=== PATIENT | female | born 1980 | race Caucasian/White ===

== ENCOUNTER 2022-02-25 12:48 | Emergency (ER) | payer MEDICARE, OTHER, SELFPAY ==
--- NOTE | 2022-02-25 16:56 | NUR.NOTE ---
Nursing Note: Patient stated to Access that she did not want to wait any longer @ [id number]
== END 2022-02-25 13:46 | disposition left before discharge ==
DX: Z53.21 Procedure and treatment not carried out due to patient leaving prior to being seen by health care provider (principal)

== ENCOUNTER 2022-08-03 19:32 | Inpatient (IN) | payer MEDICARE, SELFPAY ==
[2022-08-03 19:33] VITALS: BP 132/79; PULSE 98; RESP 16; TEMP 37.3; O2SAT 98
--- NOTE | 2022-08-03 20:00 | DI.CT_ITS ---
Exam(s) CT ABDOMEN PELVIS W EXAM: CT ABDOMEN PELVIS W CLINICAL HISTORY: epigastric and band pain, hx pancreatitis TECHNIQUE: Imaging Protocol: Axial computed tomography images with coronal and sagittal reformatted images were created and reviewed CONTRAST MATERIAL: Intravenous: Omnipaque 350 Contrast volume:100 mL Oral: No COMPARISON: No exams were available for comparison FINDINGS: ABDOMEN: Lung Bases: Normal where visualized. Liver: Normal density. No measurable mass. Portal, Superior Mesenteric, and Splenic Veins: There is marked attenuation of the size of the spleni c vein. Gallbladder and Biliary Tract: The gallbladder is not identified. The patient may be status post cho lecystectomy. There is mild intra and extrahepatic biliary ductal dilatation. Pancreas: There is a 4.9 x 4.4 cm in capsulated fluid collection associated with the body of the panc reas. There is peripancreatic fluid noted. The pancreatic tail appears mildly atrophic. Spleen: Normal. Adrenals: No masses seen. Kidneys: Normal size, contour and axis. No radiodense stones or obstructive uropathy. No masses seen. Abdominal Aorta: Abdominal portion non-dilated. Vasculature: Upper abdominal varices are present. Bowel: No evidence of obstruction. There is mild wall thickening involving portions of the stomach a nd proximal small bowel likely reticulated to the adjacent pancreatic inflammatory process. Appendix is unremarkable. Peritoneal Cavity: There is a small amount of pelvic free fluid. There is also small amount of fluid seen in the left pericolic gutter. No free air. Lymph Nodes: Within normal limits. Bones: Within normal limits for the patient's age. There is a unilateral right spondylolysis at L5. No spondylolisthesis. Soft Tissues: Unremarkable. PELVIS: Bladder: Symmetric distention, no gross wall thickening. Reproductive Organs: There is an IUD which appears in good position. Prominent parametrial vessels a re seen which can be present with pelvic congestion syndrome. Bilateral ovarian cysts. The largest is on the right and measures 3.4 cm. Lymph Nodes: Within normal limits. Bones: Within normal limits for the patient's age. IMPRESSION: 1. Findings suggestive of acute pancreatitis with presumed pseudocyst. 2. Bilateral ovarian cysts. 3. Findings suggestive of pelvic congestion syndrome. 4. Bowel wall thickening seen in the distal stomach and proximal small bowel. Presumed gastritis/ent eritis which may be secondary to the adjacent acute pancreatitis. 5. Attenuation of the size of the splenic vein with upper abdominal collateral vessels suspicious for chronic splenic vein thrombosis. RADIATION DOSE DELIVERED: 651.89mGy.cm Total DLP DATA REPOSITORY: All CT scans at this facility are submitted to the National Radiology Data Registry (NRDR) Dose Index Registry (DIR) with the [employer] (ACR). RADIATION OPTIMIZATION: All CT scans at this facility use at least one of these dose optimization te chniques: automated exposure control; mA and/or kV adjustment per patient size (includes targeted exa ms where dose is matched to clinical indication); or iterative reconstruction.
--- NOTE | 2022-08-03 20:02 | ED.GENADUL_ITS ---
Discharge Plan Disposition Patient Disposition: Admit to [facility] Condition: Poor Condition: Improving Discharge Details Chief Complaint: Abd Prob Clinical Impression: Pancreatitis Admit Date/Time: 08/03/22 23:32 Admit Provider: Phil Renner Attending Provider: Phil Renner Primary Care Provider: Genoveva,Local ED Provider: Ghada Urena Discharge Instructions Activity:: Activity as Tolerated Equipment/Supplies:: No Equipment Needed Diet:: As Tolerated Discharge Orders Discharge Orders: Discharge Order (Routine); Ordered 08/05/22 Ordered By: Tanya Shaw Discharge Data Discharge Date/Time-TO BE ENTERED AT DEPARTURE: 08/04/22 03:49 Medical Decision Making Patient is a pleasant 42 year old female, brought in via EMS, with c/c of abdominal pain. Hx of pancreatitis in the past, last flare was 1yr ago. States that this feels the same as it has in the past. States that at 2 AM she woke to have some water and developed a sudden onset of epigastric and left upper quadrant pain. States that unlike historically, the pain does radiate more and is circumferential around the upper abdomen and can radiate up towards the posterior left shoulder. Denies any anterior chest pain. No shortness of breath. States the pain has been severe and she is now unable to manage at home. Typically begins to have the symptoms and will self treat with increased fluids and has not been successful at this time. She denies any fevers or chills. Denies any significant alcohol intake or binge drinking recently. However, she does report that she drinks some alcohol after the onset of her symptoms as this can help with her pain. Patient is status postcholecystectomy after her initial bout of gallstone pancreatitis. Patient is new to the area, does have a local primary care but is not established with GI in the area as of yet. On exam, patient appears nontoxic. She does appear anxious and uncomfortable. Her lungs are clear, normal cardiac exam. Abdominal exam is significant for epigastric discomfort and left upper quadrant pain. No peritoneal findings. She does have well-healed surgical incisions. Primarily concern at this time for recurrent pancreatitis. Will the patient denies any chronic alcohol use, she does report intoxication at this time. Will obtain CT imaging, labs and give fluids and analgesics. CT concerning for findings suspicious of pancreatitis. Cyst is noted which patient reports has been noted historically. She has had 1 of these removed in the past. No evidence of abscess. Lipase is slightly elevated at 95. Leukocytosis is appreciated. Discussed admission for continued hydration, pain management. Patient is in agreement with this plan. While her lipase not significantly elevated, I am concerned that this may be trending upward, particular given patient's history. Patient is in agreement with this plan. Consulted with hospitalist who agrees to admission. HPI General Date/Time Provider Initiated Documentation: 08/03/22 19:53 . Limitations to Documentation: no limitations . Information obtained by: patient and RN notes reviewed . History of Present Illness 42 year old F presents to the emergency department with the chief complaint of epigastric and LUQ pain, described as severe and similar to prior episodes (hx pancreatitis), with intensity rated at 10. Quality is described as stabbing, and is localized to the abdomen. Patient reports radiation to back (toward left shoulder). Patient started experiencing this hour(s) (began today at 2AM) and it has been constant. No relieving factors improve symptom(s), Eating worsens symptoms . Patient notes no other symptoms.. Patient did receive the following treatments prior to arrival, none Related Data Home Medications Medication Instructions Recorded Confirmed buprenorphine 8 mg-naloxone 2 mg 1 film sublingual DAILY 08/04/22 08/04/22 sublingual film (Suboxone) dextroamphetamine-amphetamine 20 1 tab PO BID 08/04/22 08/04/22 mg tablet trazodone 100 mg tablet tab PO PRN PRN 08/04/22 General Stated Complaint: Abd Prob ADRIANA: 3 Review of Systems Constitutional Constitutional: Reports as per HPI, Denies chills, Denies fever(s) and Denies headache(s) ENT Ears, Nose, Mouth, and Throat: Denies headache(s) Cardiovascular Cardiovascular: Reports as per HPI, Denies chest pain and Denies dyspnea Respiratory Respiratory: Reports as per HPI, Denies cough and Denies dyspnea Gastrointestinal Gastrointestinal: Reports as per HPI Musculoskeletal Musculoskeletal: Reports as per HPI Integumentary/Breasts Skin/Breast: Reports as per HPI and Denies rash Neurologic Neurologic: Reports as per HPI and Denies headache(s) PFSH All Active Problems (Updated 08/24/22 @ 21:46 by ELVIRA Estrada) Pancreatitis (Acute) Social History Smoking/Tobacco Use Status: Current every day Smoking risk assessment performed?: Yes Alcohol Intake: current Alcohol Intake frequency: a few times a month Drug use: Current Sobriety Substance use type: marijuana Do you feel safe at home: Yes Do you feel safe in your relationship?: Yes Exam Const General: cooperative, healthy appearing, uncomfortable, no acute distress, well developed and anxious Nutritional Appearance: average body habitus and well nourished Orientation: alert and awake [facility] Head: normal to inspection Mouth: moist mucous membranes Resp Effort & Inspection: normal respiratory effort, able to speak in complete sentences and no respiratory distress Auscultation: clear to auscultation bilaterally, no rales, no rhonchi and no wheezes Cardio Rate: regular rate Rhythm: regular rhythm Heart Sounds: S1 normal and S2 normal GI Inspection: normal to inspection, scar (well healed), no visible herniation, no visible pulsation and No visible peristalsis Palpation: soft, no hepatosplenomegaly, no hepatosplenomegaly, no hernias, no masses, not rigid and tender in the epigastrum and in the LUQ Percussion: normal to percussion Auscultation: normal bowel sounds Back/Spine/Pelvis Back: no CVA tenderness Skin General skin exam: no rashes or lesions noted Trauma: no lacerations or abrasions Neuro General: patient alert and patient awake Cognition: normal cognition Speech: speech normal Gait: normal gait Psych Appearance: grossly normal and well kempt Mental Status: mental status grossly normal Speech and Movement: speech and movement normal Course Vital Signs Vital signs: Vital Signs Temperature 37.3 C 08/03/22 19:33 Pulse 98 H 08/03/22 19:33 Respiratory Rate 16 08/03/22 19:33 Blood Pressure 132/79 08/03/22 19:33 Pulse Oximetry 98 08/03/22 19:33 Temperature 37.3 C 08/03/22 19:33 Temperature Source Oral 08/03/22 19:33 Pulse 98 H 08/03/22 19:33 Respiratory Rate 16 08/03/22 19:33 Blood Pressure 132/79 08/03/22 19:33 Blood Pressure Position Sitting 08/03/22 19:33 Pulse Oximetry 98 08/03/22 19:33 Oxygen Delivery Method Room Air 08/03/22 19:33 Oxygen Flow Rate 0 08/03/22 19:33 Pain Level 10 08/03/22 19:33
[2022-08-03] MEDS: HYDROmorphone 2 MG/ML SYR 1 MG IVP ×2 (20:49→22:49)
[2022-08-03] MEDS: Lactated Ringers 1,000 ML 1000 ML IV (20:49)
[2022-08-03 20:59] LABS: Abs Immature Grans 0.07 10^3/uL (0.0-0.06); Absolute Eosinophil Count 0.47 10^3/uL (0.0-0.7); Absolute Lymphocyte Count 1.71 10^3/uL (1.2-3.4); Absolute Monocyte Count 1.44 10^3/uL (0.1-0.8); Absolute Neutrophil Count 13.11 10^3/uL (1.2-6.7); Basophils % 0.6; Eosinophils % 2.8; HCT 45.6 % (36.0-46.0); Immature Grans % 0.4; Lymphocytes % 10.1; MCH 32.5 pg (27.0-33.0); MCHC 35.1 % (32.0-36.0); MCV 93 fL (80-95); MPV 9.6 fL (8.0-11.0); Monocytes % 8.5; Neutrophils % 77.6; Platelet Count 342 10^3/uL (130-400); RBC 4.93 10^6/uL (3.93-5.22); RDW 13.2 % (11.7-14.6); RDW-SD 45.1 fL
[2022-08-03 21:00] VITALS: BP 123/67; PULSE 93; RESP 16; TEMP 36.2; O2SAT 98
[2022-08-03 21:00] LABS: Bilirubin Negative (Negative); Blood Negative (Negative); Clarity Clear (Clear); Glucose Negative (Negative); Ketones Negative (Negative); Leukocyte Esterase Trace (Negative); Nitrite Negative (Negative); Urobilinogen 0.2 EU/dL (Up TO 0.2); pH 6.5 (5-8)
[2022-08-03 21:11] LABS: ETHANOL BLOOD 185.1 mg/dL (<10)
[2022-08-03 21:14] LABS: Bacteria Few HPF (Negative); C & S Indicated? No; Casts Negative LPF (Negative); Crystals Negative HPF (Negative); Epithelial Cells Many HPF (Negative); Mucus Negative (Negative); Other Cells Negative (Negative); RBC 0-2 HPF (0-2)
[2022-08-03 21:14] LABS: ALT 55 U/L (14-59); AST 37 U/L (15-37); Albumin 3.4 g/dL (3.4-5.0); Alkaline Phosphatase 250 U/L (46-116); BUN 5 mg/dL (7-18); Bilirubin, Total 1.2 mg/dL (0.2-1.0); CREATININE 0.5 mg/dL (0.55-1.02); Calcium 8.6 mg/dL (8.5-10.1); Chloride 102 mmol/L (98-107); Estimated GFR 120.77 (mL/min/1.73m2); Glucose 132 mg/dL (74-106); Lipase 95 U/L (16-77); Magnesium 1.4 mg/dL (1.8-2.4); Sodium 140 mmol/L (136-145); Total Protein 7.1 g/dL (6.4-8.2)
[2022-08-03 21:15] LABS: Potassium 2.7 mmol/L (3.5-5.1)
--- NOTE | 2022-08-03 21:33 | NUR.NOTE ---
Addendum entered by Darling Spain RN 08/04/22 04:42: Charted on wrong pt. Original Note: Per reg diet
[2022-08-03] MEDS: Omnipaque 350 MG/ML 100 ML BTL IJ (21:41)
[2022-08-03] MEDS: Normal Saline - Diluent 50 ML VIAL IJ (21:42)
[2022-08-03] MEDS: POTASSIUM CHLORIDE 20 MEQ, POTASSIUM CHLORIDE 10 MEQ 30 MEQ PO (21:57)
[2022-08-03] MEDS: POTASSIUM CHLORIDE 20 MEQ/100 ML BAG 50 MEQ IVPB (21:58)
--- NOTE | 2022-08-03 21:58 | DI.VRAD_ITS ---
PROCEDURE INFORMATION: Exam: CT Abdomen And Pelvis With Contrast Exam date and time: 08/03/2022 9:36 PM Age: 42 years old Clinical indication: Abdominal pain; Localized; Upper; Additional info: Epigastric and band pain, HX pancreatitis TECHNIQUE: Imaging protocol: Computed tomography of the abdomen and pelvis with contrast. Radiation optimization: All CT scans at this facility use at least one of these dose optimization techniques: automated exposure control; mA and/or kV adjustment per patient size (includes targeted exams where dose is matched to clinical indication); or iterative reconstruction. Contrast material: OMNI 350; Contrast volume: 100 ml; Contrast route: INTRAVENOUS (IV); COMPARISON: No relevant prior studies available. FINDINGS: Liver: No mass. Gallbladder and bile ducts: Gallbladder not clearly visualized. Mild intrahepatic biliary ductal dilatation and mild dilatation of the common bile duct Pancreas: Peripancreatic collection measuring 4.8 x 4.5 cm abutting the greater curvature of the stomach. There is mild distal pancreatic ductal prominence. Fluid surrounding the distal pancreas extending to the lesser sac and left paracolic gutter Spleen: Extensive collateral vessels adjacent to the spleen suggesting underlying chronic splenic venous thrombosis No splenomegaly. Adrenal glands: No mass. Kidneys and ureters: No hydronephrosis. Stomach and bowel: No obstruction. Gastric wall thickening along the greater curvature. Appendix: No evidence of appendicitis. Intraperitoneal space: Small to moderate pelvic fluid No free air. No significant fluid collection. Vasculature: Unremarkable. No abdominal aortic aneurysm. Lymph nodes: Unremarkable. No enlarged lymph nodes. Urinary bladder: Unremarkable as visualized. Reproductive: Right ovarian cystic lesion measuring up to 3.4 cm. There is possible clot noted posteriorly suggesting hemorrhagic lesion. Intrauterine device in the uterus. Cystic structure in the left ovary suspected. Extensive parametrial collateral vessels and dilated gonadal veins Bones/joints: Chronic right spondylolysis at L5-S1 without significant spondylolisthesis. No acute fracture. Soft tissues: Unremarkable. IMPRESSION: Presumed pseudocyst in the distal pancreas as described. Mild superimposed pancreatitis suspected. Findings suspect for chronic splenic venous thrombosis Presumed recently ruptured right ovarian hemorrhagic cyst as described Findings in keeping with pelvic congestion syndrome Nonurgent findings as noted Dictated and Authenticated by: Asif Farooq MD. Ordering:VINCENT Urrutia MD
--- NOTE | 2022-08-03 22:00 | RT.EKG_ITS ---
APPROVED REPORT Exam: Resting ECG Reason for Exam: K+ 2.6 Patient Location: E HR:90 bpm ECG Measurements Heart Rate 90 AXIS TX 140 P 88 QRSd 81 QRS 48 QT 397 T 39 QTc 486 Conclusion Sinus rhythm. Biatrial enlargement. Left ventricular hypertrophy.
--- NOTE | 2022-08-03 23:15 | HPE_ITS ---
Date of service: 08/03/22 Time of Service: 23:15 Assessment and Plan Assessment and plan (1) Pancreatitis: Status: Chronic Assessment and plan: Apparently acute pancreatitis, though the CT findings and lipase elevation are modest. As to etiology this is unclear. Certainly alcohol is to be considered, and a level of 185 would be somewhat unexpected from what the patient describes. Alternatively the elevation in alk phos and mild CBD dilatation could suggest recent passage of a CBD stone. In any case will plane NPO with IVF and prn analgesics (will try Fentanyl, as Dilaudid has had limited effect, though might just need higher dose). Out of abundance of caution I will also give banana bag and place on CIWA, though patient states she does not drink regularly and has never had any issues with withdrawal. Will also replenish Mg. History of Present Illness History of Present Illness Chief Complaint: abdominal pain Narrative: 42 female with h/o recurrent pancreatitis, s/p cholycytectomy, repeated episodes since which she states are of unknown etiology. Here with one day of epigastric pain radiating to back and left shoulder, which she states is stereotypical for her episodes. No nausea. Sates she drank some alcohol AFTER the pain started (says this helps with the pain) but denies drinking prior. In ER findings of note for white count 16, lipase 94, Alk phos 250, TBili 1.2, normal TAs, K 2.[address] abdomen shows pancreatic pseudocyst and peripancreatic fluid suggesting mild pancreatitis, mild dilatation CBD, absent gallbladder, no CBD stones and no pancreatic calcifications reported. (Incidental note of pelvic free fluid c/w recently ruptured right ovarian cyst. Upon further questioning patient admits to some RLQ pain earlier today but states it was overshadowed by the epigastric pain). Patient given potassium replacement and Dilaudid 2 mg IV in divided doses with temporary pain relief. Requesting something stronger. Review of Systems Narrative: per HPI PFSH All Active Problems (Updated 08/03/22 @ 23:26 by Phil Renner MD) Pancreatitis (Chronic) Social History Smoking/Tobacco Use Status: Current every day Smoking risk assessment performed?: Yes Alcohol Intake: current Alcohol Intake frequency: a few times a month Substance use type: marijuana Do you feel safe at home: Yes Do you feel safe in your relationship?: Yes Exam Narrative Exam Narrative: 123/67, 93, 36.2, 16, 98%^ RA. HEENT anicteric; neck supple; lungs clear; heart RRR; abdomen +BS, soft, moderate-sever epigastric tenderness w/o rebound; extremities w/o edema; neuro Ox, lucid, moves all 4s Results Labs Result diagrams: 08/03/22 20:45 08/03/22 20:45 Labs: Laboratory Results - last 24 hr 08/03/22 08/03/22 08/03/22 20:30 20:45 20:45 WBC 16.90 H RBC 4.93 Hgb 16.0 H Hct 45.6 MCV 93 MCH 32.5 MCHC 35.1 RDW 13.2 Plt Count 342 MPV 9.6 Immature Gran % 0.4 Neutrophils % 77.6 Lymphocytes % 10.1 Monocytes % 8.5 Eosinophils % 2.8 Basophils % 0.6 Nucleated RBC % 0.0 Absolute Neutrophils 13.11 H Absolute Lymphocytes 1.71 Absolute Monocytes 1.44 H Absolute Eosinophils 0.47 Absolute Basophils 0.10 Sodium 140 Potassium 2.7 L* Chloride 102 Carbon Dioxide 24.0 Anion Gap 14.0 H BUN 5 L Creatinine 0.5 L Est GFR (CKD-EPI 2020) 120.77 Glucose 132 H Calcium 8.6 Magnesium 1.4 L Total Bilirubin 1.2 H AST 37 ALT 55 Alkaline Phosphatase 250 H Total Protein 7.1 Albumin 3.4 Lipase 95 H Urine Color Yellow Urine Clarity Clear Urine pH 6.5 Ur Specific [place] 1.010 Urine Protein Negative Urine Ketones Negative Urine Blood Negative Urine Nitrite Negative Urine Bilirubin Negative Urine Urobilinogen 0.2 Ur Leukocyte Esterase Trace H Urine RBC 0-2 Urine WBC 5-10 Ur Epithelial Cells Many Urine Crystals Negative Urine Bacteria Few Urine Casts Negative Urine Mucus Negative Urine Other Negative Ur Culture Indicated? No Urine Glucose Negative Ethyl Alcohol 08/03/22 20:45 WBC RBC Hgb Hct MCV MCH MCHC RDW Plt Count MPV Immature Gran % Neutrophils % Lymphocytes % Monocytes % Eosinophils % Basophils % Nucleated RBC % Absolute Neutrophils Absolute Lymphocytes Absolute Monocytes Absolute Eosinophils Absolute Basophils Sodium Potassium Chloride Carbon Dioxide Anion Gap BUN Creatinine Est GFR (CKD-EPI 2020) Glucose Calcium Magnesium Total Bilirubin AST ALT Alkaline Phosphatase Total Protein Albumin Lipase Urine Color Urine Clarity Urine pH Ur Specific [place] Urine Protein Urine Ketones Urine Blood Urine Nitrite Urine Bilirubin Urine Urobilinogen Ur Leukocyte Esterase Urine RBC Urine WBC Ur Epithelial Cells Urine Crystals Urine Bacteria Urine Casts Urine Mucus Urine Other Ur Culture Indicated? Urine Glucose Ethyl Alcohol 185.1 H Last Vital Signs Temp 36.2 C L 08/03/22 21:00 Pulse 93 H 08/03/22 21:00 Resp 16 08/03/22 21:00 BP 123/67 08/03/22 21:00 Pulse Ox 98 08/03/22 21:00 Time Spent Time spent with Patient: 40-54 minutes Time was spent: preparing to see the patient(eg.review tests), obtaining and/or reviewing separately otained hiistory, ordering medications,tests, procedures and indepentently interpreting results
[2022-08-03] MEDS: fentaNYL 100 MCG/2 ML VIAL IVP (23:51)
--- NOTE | 2022-08-04 | DI.US_ITS ---
Exam(s) US ABDOMEN LIMITED EXAM: US ABDOMEN LIMITED CLINICAL HISTORY: abdominal pain, pancreatitis TECHNIQUE: Ultrasound abdomen performed using standard protocol. COMPARISON: CT CT ABDOMEN PELVIS W from 08/03/2022 FINDINGS: PANCREAS: There is a 4.1 x 5.1 cm fluid collection adjacent to or within the tail of the pancreas. T his was present on the CT scan from 08/03/2022. LIVER: Normal. Hepatopedal flow in the Portal Vein. The liver measures in 16.6 cm length. GALLBLADDER:The gallbladder is not visualized. The patient may be status post cholecystectomy. BILIARY SYSTEM: Common bile duct measures 8 mm. No intrahepatic biliary ductal dilation. RIGHT KIDNEY: Kidney is normal in size. No evidence of renal calculi. No evidence of hydronephrosis. No renal mass or cyst identified. ASCITES: There is a small amount of perihepatic ascites. IMPRESSION: 1. 5.1 cm fluid collection in the pancreatic tail. This likely reflects a pseudocyst. 2. Gallbladder appears absent. Please correlate with the patient's surgical history. 3. Trace amount of perihepatic ascites. DATA REPOSITORY:
[2022-08-04 00:01] VITALS: BP 122/67; PULSE 88; RESP 20; TEMP 36.7; O2SAT 96
[2022-08-04] MEDS: HYDROmorphone 2 MG/ML SYR IVP ×10 (00:47→22:03)
[2022-08-04] MEDS: MAGNESIUM SULFATE 8.12 MEQ, MULTIVITAMIN 10 ML, THIAMINE 100 MG, FOLIC ACID 1 MG in Nor... 168.867 MG IV (02:57)
[2022-08-04] MEDS: MAGNESIUM SULFATE 2 GM/50 ML BAG IVPB (02:57)
[2022-08-04 03:43] VITALS: PULSE 75; RESP 18; O2SAT 98
--- NOTE | 2022-08-04 04:09 | NUR.NOTE ---
@0130-Pt sleeping with even and unlabored resp of 16. On tele NS @77
[2022-08-04 04:16] VITALS: BP 151/100; PULSE 80; RESP 18; TEMP 37.2; O2SAT 99
--- NOTE | 2022-08-04 04:43 | NUR.NOTE ---
@0010- Pt states the fentanyl didn't touch it! I just need 2mg dilauded MD Zurdo paged and made aware. New med ords received.
[2022-08-04] MEDS: POTASSIUM CHLORIDE/0.9% NACL 1,000 ML 200 MEQ IV (04:49)
[2022-08-04 05:56] LABS: Source Nasal/Nares
[2022-08-04 06:29] LABS: COVID-19 PCR Negative (Negative)
[2022-08-04 07:21] LABS: HCT 39.7 % (36.0-46.0); HGB 13.9 g/dL (11.2-15.7); MCH 32.6 pg (27.0-33.0); MCV 93 fL (80-95); MPV 9.9 fL (8.0-11.0); Platelet Count 214 10^3/uL (130-400); RBC 4.26 10^6/uL (3.93-5.22); RDW 13.4 % (11.7-14.6); WBC 9.59 10^3/uL (4.4-10.8)
[2022-08-04 07:31] VITALS: BP 161/90; PULSE 79; RESP 18; TEMP 36.9; O2SAT 98
[2022-08-04 07:36] LABS: Anion Gap 6.8 mmol/L (3-11); BUN 5 mg/dL (7-18); CO2 27.2 mmol/L (21.0-32.0); CREATININE 0.4 mg/dL (0.55-1.02); Chloride 107 mmol/L (98-107); Estimated GFR 127.44 (mL/min/1.73m2); Glucose 111 mg/dL (74-106); Lipase 66 U/L (16-77); Magnesium 2.2 mg/dL (1.8-2.4); Potassium 3.1 mmol/L (3.5-5.1); Sodium 141 mmol/L (136-145)
[2022-08-04] MEDS: Normal Saline Flush 10 ML SYR IVP ×7 (08:40→17:30)
[2022-08-04] MEDS: POTASSIUM CHLORIDE 10 MEQ/100 ML BAG 100 MEQ IVPB ×4 (08:41→13:01)
[2022-08-04] MEDS: Pantoprazole 40 MG VIAL IVP (10:23)
[2022-08-04] MEDS: Ketorolac 15 MG/ML VIAL IVP ×3 (10:23→22:03)
[2022-08-04] MEDS: POTASSIUM CHLORIDE/0.9% NACL 1,000 ML 150 MEQ IV ×3 (10:32→23:58)
--- NOTE | 2022-08-04 11:56 | PDOC.CMIN ---
- If Service Date Differs Date of service: 08/04/22 Time of Service: 11:56 Care Management Initial Assess REASON FOR HOSPITALIZATION:: Pancreatitis PAST MEDICAL HISTORY/PAST SURGICAL HISTORY:: Pancreatitis (Chronic). 42 female with h/o recurrent pancreatitis, s/p cholycytectomy, repeated episodes since which she states are of unknown etiology. Here with one day of epigastric pain radiating to back and left shoulder, which she states is stereotypical for her episodes. No nausea. States she drank some alcohol AFTER the pain started (says this helps with the pain) but denies drinking prior. PREVIOUS FUNCTIONAL STATUS/SOCIAL/FAMILY SUPPORTS:: Resides in [facility] with significant other, Zaid. CURRENT FUNCTIONAL STATUS:: Remains inpatient, pain management continues to be a challenge. Pain level 6 this afternoon. Dolly is up independently in her room. ADVANCE DIRECTIVES:: None on file. Has patient been provided with info about the portal/API?: No Did the patient sign up for the portal?: No CODE STATUS:: Full Code INSURANCE COVERAGE / FINANCIAL ISSUES:: Medicare CURRENT HOME/COMMUNITY SERVICES/EQUIPMENT:: None currently. PRIMARY CARE PHYSICIAN:: [employer] tele-provider Bacilio DELA CRUZ. POTENTIAL DISCHARGE NEEDS:: PCP attachment, follow up appointments. PATIENT/FAMILY EDUCATION NEEDS:: Review discharge instructions, discuss Ask Me Three. ANTICIPATED BARRIERS TO DISCHARGE:: None identified. TRANSPORTATION:: Via private vehicle with significant other. PLAN:: Dolly will return home when ready per MD. She will be provided with PCP follow up and follow her plan of care as prescribed. She will transport via private vehicle with her significant other.
[2022-08-04] MEDS: ACETAMINOPHEN 1,000 MG/100 ML BTL 400 MG IVPB ×2 (12:06→19:45)
[2022-08-04 14:14] LABS: Potassium 3.8 mmol/L (3.5-5.1)
--- NOTE | 2022-08-04 14:38 | PHA.REVIEW2 ---
Pharmacy Admission Review - Admission Clinical Review Resuscitation Status Full Code Height 5 ft 2 in Weight 58.06 kg - Renal Dosing Renal Dosing: BUN 5 mg/dL (7-18) L 08/04/22 07:10 Creatinine 0.4 mg/dL (0.55-1.02) L 08/04/22 07:10 Medications needing adjustments: Reviewed (Crcl ~169.6 mL/min current meds okay) - Anticoagulation Anticoagulation: Hgb 13.9 g/dL (11.2-15.7) D 08/04/22 07:10 Hct 39.7 % (36.0-46.0) 08/04/22 07:10 Plt Count 214 10^3/uL (130-400) 08/04/22 07:10 Creatinine 0.4 mg/dL (0.55-1.02) L 08/04/22 07:10 DVT Prophylaxis: Intervened (nothing currently ordered or mentioned in H&P will ask provider about possible need) - Opiate Usage Evaluate Pain Scale/Pains Meds: Intervened Scheduled Bowel Reg ordered if on Opiates?: No (will mention to provider) - Relevant Labs Sodium 141 mmol/L (136-145) 08/04/22 07:10 Potassium 3.8 mmol/L (3.5-5.1) 08/04/22 13:50 Chloride 107 mmol/L (98-107) 08/04/22 07:10 Magnesium 2.2 mg/dL (1.8-2.4) 08/04/22 07:10 Electrolytes, C-Reactive P, ESR: Reviewed (K+ was 3.1 this morning, IV replacement ordered. K+ this afternoon up to 3.8) - DM Control DM Control: Glucose 111 mg/dL (74-106) H 08/04/22 07:10 DM Control: Reviewed (no DM noted in pt's medical history, no A1c on file) - Cardiac Review BP, HR, EF%: Reviewed (BP and HR have been normal to high so far this admission) - Qtc Review QTc: Reviewed (QTc 486 on admission) - IV to PO Switch IV Medications: Reviewed - Home Meds Home Med List reviewed: Intervened (nothing currently listed in [employer] for home meds, but in the external med history it looks like the pt has picked up meds earlier. Provider made aware, nursing to check with pt about possible home meds.) - Current meds Current Medication Order Review: Reviewed - Comments Comments/Follow Ups: Watch BP, HR, K+, labs and for med changes (IV to PO, BM meds, VTE prophylaxis)
--- NOTE | 2022-08-04 15:29 | CHAPLAIN ---
Dolly was sitting up in bed when I visited this afternoon. Her room was dark and the shades were down. I had a brief visit with her, explained my role and offered support.
[2022-08-04 15:47] VITALS: BP 133/80; PULSE 64; RESP 18; TEMP 36; O2SAT 98
--- NOTE | 2022-08-04 17:39 | W.PM.PROGNOT ---
Date of Service Date of service: 08/04/22 Time of Service: 17:39 Assessment and Plan Assessment and plan (1) Pancreatitis: Status: Acute Assessment and plan: will continue routine management with IV fluids, bowel rest but clears ok if tolerated, adjust pain management adding schedule toradol and apap. decrease IV fluids incentive spirometer, encourage ambulation discussed with Dr Carvajal Subjective Subjective Patient reports: still having pain, tolerating liquids well, voiding w/o difficulty and afebrile; denies shortness of breath Interval history since last seen: poor pain control but not worsened by clear liquids. Exam Const General: acute distress moderate (pain, tearful) Nutritional Appearance: thin Orientation: alert, awake and oriented x3 HENMT Head: normal to inspection, normocephalic and atraumatic Mouth: oral mucosae normal Chest Chest: normal inspection of the chest Resp Effort & Inspection: normal respiratory effort (shallow respirations d/t pain) Auscultation: clear to auscultation bilaterally and diminished lung sounds (bases) Cardio Rate: regular rate Rhythm: regular rhythm GI Inspection: normal to inspection and distended Palpation: tender in the epigastrum, in the LUQ and in the RUQ Skin General skin exam: no rashes or lesions noted Neuro General: patient alert, patient awake, patient oriented x3 and no focal motor deficits Extrem General: normal to inspection, full ROM and no pedal edema Psych Mental Status: mental status grossly normal Speech and Movement: speech and movement normal Mood: congruent mood Affect: normal affect Attitude: cooperative Thought Process: normal Thought Content: normal Insight: insight good Judgment: judgment good Objective Last Vital Signs Temp 36 C L 08/04/22 15:47 Pulse 64 08/04/22 15:47 Resp 18 08/04/22 15:47 BP 133/80 08/04/22 15:47 Pulse Ox 98 08/04/22 15:47 Laboratory Results - last 24 hr 08/03/22 08/03/22 08/03/22 20:30 20:45 20:45 WBC 16.90 H RBC 4.93 Hgb 16.0 H Hct 45.6 MCV 93 MCH 32.5 MCHC 35.1 RDW 13.2 Plt Count 342 MPV 9.6 Immature Gran % 0.4 Neutrophils % 77.6 Lymphocytes % 10.1 Monocytes % 8.5 Eosinophils % 2.8 Basophils % 0.6 Nucleated RBC % 0.0 Absolute Neutrophils 13.11 H Absolute Lymphocytes 1.71 Absolute Monocytes 1.44 H Absolute Eosinophils 0.47 Absolute Basophils 0.10 Sodium 140 Potassium 2.7 L* Chloride 102 Carbon Dioxide 24.0 Anion Gap 14.0 H BUN 5 L Creatinine 0.5 L Est GFR (CKD-EPI 2020) 120.77 Glucose 132 H Calcium 8.6 Magnesium 1.4 L Total Bilirubin 1.2 H AST 37 ALT 55 Alkaline Phosphatase 250 H Total Protein 7.1 Albumin 3.4 Lipase 95 H Urine Color Yellow Urine Clarity Clear Urine pH 6.5 Ur Specific [place] 1.010 Urine Protein Negative Urine Ketones Negative Urine Blood Negative Urine Nitrite Negative Urine Bilirubin Negative Urine Urobilinogen 0.2 Ur Leukocyte Esterase Trace H Urine RBC 0-2 Urine WBC 5-10 Ur Epithelial Cells Many Urine Crystals Negative Urine Bacteria Few Urine Casts Negative Urine Mucus Negative Urine Other Negative Ur Culture Indicated? No Urine Glucose Negative Ethyl Alcohol COVID-19 Source SARS-CoV-2 (PCR) 08/03/22 08/04/22 08/04/22 20:45 05:45 07:10 WBC RBC Hgb Hct MCV MCH MCHC RDW Plt Count MPV Immature Gran % Neutrophils % Lymphocytes % Monocytes % Eosinophils % Basophils % Nucleated RBC % Absolute Neutrophils Absolute Lymphocytes Absolute Monocytes Absolute Eosinophils Absolute Basophils Sodium 141 Potassium 3.1 L Chloride 107 Carbon Dioxide 27.2 Anion Gap 6.8 BUN 5 L Creatinine 0.4 L Est GFR (CKD-EPI 2020) 127.44 Glucose 111 H Calcium 8.0 L Magnesium 2.2 Total Bilirubin AST ALT Alkaline Phosphatase Total Protein Albumin Lipase 66 Urine Color Urine Clarity Urine pH Ur Specific [place] Urine Protein Urine Ketones Urine Blood Urine Nitrite Urine Bilirubin Urine Urobilinogen Ur Leukocyte Esterase Urine RBC Urine WBC Ur Epithelial Cells Urine Crystals Urine Bacteria Urine Casts Urine Mucus Urine Other Ur Culture Indicated? Urine Glucose Ethyl Alcohol 185.1 H COVID-19 Source Nasal/Nares SARS-CoV-2 (PCR) Negative 08/04/22 08/04/22 07:10 13:50 WBC 9.59 RBC 4.26 Hgb 13.9 D Hct 39.7 MCV 93 MCH 32.6 MCHC 35.0 RDW 13.4 Plt Count 214 MPV 9.9 Immature Gran % Neutrophils % Lymphocytes % Monocytes % Eosinophils % Basophils % Nucleated RBC % Absolute Neutrophils Absolute Lymphocytes Absolute Monocytes Absolute Eosinophils Absolute Basophils Sodium Potassium 3.8 Chloride Carbon Dioxide Anion Gap BUN Creatinine Est GFR (CKD-EPI 2020) Glucose Calcium Magnesium Total Bilirubin AST ALT Alkaline Phosphatase Total Protein Albumin Lipase Urine Color Urine Clarity Urine pH Ur Specific [place] Urine Protein Urine Ketones Urine Blood Urine Nitrite Urine Bilirubin Urine Urobilinogen Ur Leukocyte Esterase Urine RBC Urine WBC Ur Epithelial Cells Urine Crystals Urine Bacteria Urine Casts Urine Mucus Urine Other Ur Culture Indicated? Urine Glucose Ethyl Alcohol COVID-19 Source SARS-CoV-2 (PCR) PAWSS Have you Been Recently Intoxicated or Drunk Within the Last 30 days?: No Have you Ever Experienced Previous Episodes of Alcohol Withdrawal?: No Have you ever Experienced Withdrawal Seizures?: No Have you ever Experienced Delirium Tremens(DT)s?: No Have you ever undergone Alcohol Rehabilitation Treatment (i.e, inpt ot outpatient treatment programs)?: No Have you ever Experienced Blackouts?: No Have you ever Combined Alcohol with other Downers within the last 90 days?: No Have you ever Combined Alcohol with any other Substance of Abuse during the last 90 days?: No Positive Blood Alcohol level on Presentation? [PCS.BAL]: Unable to Obtain Evidence of Increased Autonomic Activity (i.e. HR>120, tremor, sweating, agitation, nausea)?: No Result: 0 Time Spent with Patient Time Spent with Patient: 25-34 minutes Time was spent: preparing to see the patient(eg.review tests), obtaining and/or reviewing separately otained hiistory, ordering medications,tests, procedures, referring, communicating with other health property caretaker, indepentently interpreting results and counseling the patient
[2022-08-04 22:58] VITALS: BP 147/80; PULSE 71; RESP 14; TEMP 36.1; O2SAT 98
[2022-08-05] MEDS: HYDROmorphone 2 MG/ML SYR IVP ×2 (02:34→06:19)
[2022-08-05] MEDS: ACETAMINOPHEN 1,000 MG/100 ML BTL 400 MG IVPB (03:35)
[2022-08-05] MEDS: Ketorolac 15 MG/ML VIAL IVP (03:35)
[2022-08-05] MEDS: POTASSIUM CHLORIDE/0.9% NACL 1,000 ML 150 MEQ IV (06:24)
[2022-08-05] MEDS: Pantoprazole 40 MG VIAL IVP (07:37)
[2022-08-05] MEDS: Enoxaparin 40 MG/0.4 ML SYR SC (07:37)
[2022-08-05] MEDS: Normal Saline Flush 10 ML SYR IVP (07:38)
[2022-08-05 07:44] VITALS: BP 149/85; PULSE 66; RESP 19; TEMP 36.3; O2SAT 100
--- NOTE | 2022-08-05 09:44 | W.PM.DS.N ---
Date of service: 08/05/22 Time of Service: 09:44 DS: Diagnosis Discharge Diagnosis (1) Pancreatitis: Start date: 08/05/22 Start time: 09:44 Status: Acute Discharge Plan Disposition Patient Disposition: Home Condition: Improving Discharge Details Reason For Visit: Pancreatitis Admit Date/Time: 08/03/22 23:32 Admit Provider: Phil Renner Attending Provider: Phil Renner Primary Care Provider: Tiarra Tomas Hospital Course Hospital Course: This is a 42-year-old female patient past medical history significant for gallstone pancreatitis status postcholecystectomy who has had issue with pancreatic pseudocyst. She denies alcohol use but did come in with a blood alcohol level of 180. She states that she drank alcohol after her pain started to help ease the pain. Her work-up in the emergency department included a CAT scan which did demonstrate pseudocyst which she does again have history of. She was placed on IV fluids pain medication antiemetics and admitted to the medical surgical unit for further management. She responded to the treatment diet was advanced weaned off pain medication stable now for discharge to home. She was advised not to drink alcohol will follow-up with her primary care provider outpatient no medication changes have been made. No new prescriptions provided. Stable for discharge to home no services Discharge discussed with Dr. Carvajal Home Meds and New Rx's Prescriptions: Continued trazodone 100 mg tablet PO PRN PRN Label Comments: TAKE 1.5 TABLETS BY MOUTH AT BEDTIME dextroamphetamine-amphetamine 20 mg tablet 1 tab PO BID buprenorphine-naloxone [Suboxone] 8-2 mg film 1 film sublingual DAILY Label Comments: PLACE 2 UNDER THE TONGUE FOR 18 DAYS Discharge Instructions Instructions: Pancreatitis (DC), Pancreatic Pseudocyst (DC) Stand Alone Forms: Nursing Discharge Form Referrals: Tiarra Tomas [Primary Care Provider] - (Per Patient she has a DR in [facility] and has already made an Appointment for next week.) Activity:: Activity as Tolerated Equipment/Supplies:: No Equipment Needed Diet:: As Tolerated Discharge Orders Discharge Orders: Discharge Order (Routine); Ordered 08/05/22 Ordered By: Tanya Shaw Discharge Data Discharge Date/Time-TO BE ENTERED AT DEPARTURE: 08/05/22 10:48 DS: Summary Time Spent with Patient providing and/or coordinating discharge services: Less than 30 minutes Status at Discharge Functional status at discharge: independent ambulation Overall status at discharge: patient is back to baseline Mental Status: mental status grossly normal Speech and Movement: speech and movement normal Mood: congruent mood Affect: normal affect Exam Const General: cooperative, comfortable and no acute distress Nutritional Appearance: thin Orientation: alert, awake and oriented x3 HENMT Head: normal to inspection, normocephalic and atraumatic Mouth: oral mucosae normal Chest Chest: normal inspection of the chest Resp Auscultation: clear to auscultation bilaterally Cardio Rate: regular rate Rhythm: regular rhythm GI Inspection: normal to inspection Palpation: tender in the epigastrum, in the LUQ and in the RUQ Skin General skin exam: no rashes or lesions noted Neuro General: patient alert, patient awake, patient oriented x3 and no focal motor deficits Extrem General: normal to inspection, full ROM and no pedal edema Psych Mental Status: mental status grossly normal Speech and Movement: speech and movement normal Mood: congruent mood Affect: normal affect Attitude: cooperative Thought Process: normal Thought Content: normal Insight: insight good Judgment: judgment good DS: Data Vitals/I&O Vitals and I&O: Vital Signs Temperature 36.3 C L 08/05/22 07:44 Temperature Source Tympanic 08/05/22 07:44 Pulse 66 08/05/22 07:44 Pulse Rhythm Regular 08/04/22 20:14 Respiratory Rate 19 08/05/22 07:44 Respiratory Effort Non-Labored 08/04/22 15:07 Respiratory Depth Normal 08/04/22 15:07 Respiratory Pattern Normal 08/04/22 15:07 Blood Pressure 149/85 H 08/05/22 07:44 Blood Pressure Position Sitting 08/03/22 19:33 Pulse Oximetry 100 08/05/22 07:44 Oxygen Delivery Method Room Air 08/05/22 07:44 Oxygen Flow Rate 0 08/05/22 07:44 Pain Level 0 08/05/22 07:44 Comment 08/04/22 07:31 Intake & Output 08/04/22 08/04/22 08/05/22 11:59 23:59 11:59 Intake Total 2213.2 / 6063.2 3850 / 6063.2 965 / 965 Output Total 500 / 950 450 / 950 Balance 1713.2 / 5113.2 3400 / 5113.2 965 / 965 Intake: IV 2213.2 / 5733.2 3520 / 5733.2 965 / 965 Oral 330 / 330 Output: Urine 500 / 950 450 / 950 Other: Urine Color Yellow Straw Straw Urine Appearance Clear Clear Urine Odor Strong Strong Comment pt feliciano independently Voiding Methods Toilet Data Completed and Pending Labs on day of discharge: Labs from last 24 hours 08/04/22 13:50 Potassium 3.8 PFSH All Active Problems (Updated 08/04/22 @ 17:40 by Tanya Shaw NP) Pancreatitis (Acute) Social History Smoking/Tobacco Use Status: Current every day Smoking risk assessment performed?: Yes Alcohol Intake: current Alcohol Intake frequency: a few times a month Drug use: Current Sobriety Substance use type: marijuana Do you feel safe at home: Yes Do you feel safe in your relationship?: Yes Time Spent with Patient Time Spent with Patient: <45 minutes Time was spent: preparing to see the patient(eg.review tests), indepentently interpreting results and counseling the patient
--- NOTE | 2022-08-05 14:27 | PDOC.CMDIS ---
- If Service Date Differs Date of service: 08/05/22 Time of Service: 14:27 LACE Index Scoring Tool - Questions: Length of Stay (in days): 2 Acuity (Admit via E.D.?): Yes E.D. Visits: 2 - Answers: Total Score: 7 Risk of Readmission: Low Risk Care Management Discharge Reason for Hospitalization: Pancreatitis Discharge Plan: Dolly will return home when ready per MD. She will be provided with PCP follow up and follow her plan of care as prescribed. She will transport via private vehicle with her significant other. Patient/Family Education Needs: Review discharge instructions, discuss Ask Me Three.
== END 2022-08-05 10:48 | disposition home or self-care (01) | DRG 439 ==
LOC: ER 08-04 03:03 → MS 08-04 04:14
PROVIDERS: Internal Medicine; Admitting Provider General Practice; Emergency Provider Physician Assistant; Visit Provider General Practice
DX: K85.90 Acute pancreatitis without necrosis or infection, unspecified (principal); K86.3 Pseudocyst of pancreas; F17.210 Nicotine dependence, cigarettes, uncomplicated; F12.90 Cannabis use, unspecified, uncomplicated
CPT/HCPCS: 36415; 80048; 80053; 81025; 83690; 85027; 87635; 93005; 96365; 96375; 96376; 99285; J1650; 74177; 76705; 80320; 81003; 81015; 83735; 84132; 85025; 93010; 99222; 99232; 99238; J0131; J1170; J1885; J3010; J3480; J3490

== ENCOUNTER 2023-05-30 19:15 | Inpatient (IN) | payer MEDICARE, SELFPAY ==
[2023-05-30] VITALS (37 sets, daily range): BP systolic 137–182; BP diastolic 97–127; PULSE 70–109; RESP 8–30; TEMP 36.5–37.3; O2SAT 93–100
--- NOTE | 2023-05-30 19:15 | DI.CT_ITS ---
Exam(s) CT ABDOMEN PELVIS W EXAM: CT ABDOMEN PELVIS W CLINICAL HISTORY: abd pain, hx of recurrent pancreatitis, pseudocyst TECHNIQUE: Imaging Protocol: Axial computed tomography images with coronal and sagittal reformatted images were created and reviewed CONTRAST MATERIAL: Intravenous: Omnipaque 350 Contrast volume:90 mL Oral: No COMPARISON: CT CT ABDOMEN PELVIS W from 08/03/2022 FINDINGS: ABDOMEN: Lung Bases: Normal where visualized. Liver: There is diffuse decreased attenuation of the liver consistent with fatty infiltration. There is hepatomegaly. No measurable mass. Portal, Superior Mesenteric, and Splenic Veins: The splenic vein is not visualized. There are multip le varices seen in the upper abdomen and left upper quadrant. The portal and superior mesenteric vei ns are unremarkable. Gallbladder and Biliary Tract: The gallbladder is not visualized. No significant biliary ductal dila tation is present. Pancreas: The pancreas is mildly enlarged. Peripancreatic fluid is seen. There is a 8.9 transverse by 8.2 AP by 6.9 craniocaudad cm peripancreatic fluid collection suggestive of a pseudocyst. It lies anterior and superior to the pancreas. This has shown interval increase in size compared to the arpit or examination from 08/03/2022. Spleen: Normal. Adrenals: No masses seen. Kidneys: Normal size, contour and axis. No radiodense stones or obstructive uropathy. No masses seen. Abdominal Aorta: Abdominal portion non-dilated. Bowel: There is a moderate amount of stool throughout the colon suggesting constipation. There is no evidence of bowel obstruction. There is a short segment of wall thickening in the mid transverse co cody (series 5, image 383). No pericolonic inflammation is seen. There is a normal appendix present. Peritoneal Cavity: No ascites, collection or mesenteric inflammatory response. No free air. Lymph Nodes: Within normal limits. Bones: Within normal limits for the patient's age. There is unilateral left spondylolysis at L5. No spondylolisthesis. Soft Tissues: There is a small fat containing paraumbilical hernia. PELVIS: Bladder: The urinary bladder is incompletely distended limiting evaluation. No gross abnormalities i dentified. Reproductive Organs: There is a Nugent catheter in place. Lymph Nodes: Within normal limits. Bones: Within normal limits for the patient's age. IMPRESSION: 1. Findings suggestive of acute pancreatitis with findings of a underlying chronic pancreatitis and a pseudocyst. 2. Findings suspicious for compression or thrombo embolic disease involving the splenic vein with lef t upper quadrant collaterals. 3. Short segment of wall thickening in the mid transverse colon (series 5, image 383). This may be d ue to peristalsis. Mass or inflammatory process cannot be excluded. Follow-up with barium enema and /or colonoscopy is recommended. 4. Fatty infiltration of the liver. Hepatomegaly. Unexpected findings RADIATION DOSE DELIVERED: Total DLP DATA REPOSITORY: All CT scans at this facility are submitted to the National Radiology Data Registry (NRDR) Dose Index Registry (DIR) with the [employer] (ACR). RADIATION OPTIMIZATION: All CT scans at this facility use at least one of these dose optimization te chniques: automated exposure control; mA and/or kV adjustment per patient size (includes targeted exa ms where dose is matched to clinical indication); or iterative reconstruction.
--- NOTE | 2023-05-30 19:27 | W.ED.GENAD ---
Discharge Plan Disposition Patient Disposition: Admit to [facility] Condition: Stable Discharge Details Chief Complaint: Abd Prob Clinical Impression: Pancreatitis Primary Care Provider: Unknown,Unknown ED Provider: Melvin Espinosa Home Meds and New Rx's Prescriptions: No Action trazodone 100 mg tablet 50 mg PO PRN PRN Patient Comments: TAKE 1.5 TABLETS BY MOUTH AT BEDTIME dextroamphetamine-amphetamine 20 mg tablet 1 tab PO BID buprenorphine-naloxone [Suboxone] 8-2 mg film 1 film sublingual DAILY Patient Comments: PLACE 2 UNDER THE TONGUE FOR 18 DAYS Medical Decision Making 43-year-old female history of pancreatitis, pseudocyst, presents with abdominal pain over the past 3 days associate with nausea decreased p.o. intake. Hypertension and tachycardia likely related to pain. Patient does endorse remote substance abuse however not currently. Nonperitoneal relatively nontoxic. High clinical suspicion for recurrent pancreatitis. Must also consider gastritis versus enteritis versus colitis lower suspicion for appendicitis or pathology. Will provide fluids analgesia antiemetics, imaging CT abdomen pelvis with IV contrast. Disposition pending lab results, imaging and reassessment. 21: 11 acute on chronic pancreatitis with known pseudocyst. Improvement of heart rate and symptoms after fluids and meds, no vomiting. Remains afebrile nonperitoneal. Will redose medication and reassess pain. Patient low risk by BISAP score 22: 12 despite multiple doses of parenteral analgesics patient still uncomfortable, would benefit from n.p.o. status IV hydration and pain control. HPI General Date/Time Provider Initiated Documentation: 05/30/23 19:16. HPI Narrative: 43-year-old female history of recurrent pancreatitis, history of pseudocyst, presents with abdominal pain over the past 3 days nausea decreased p.o. intake. Related Data Home Medications Medication Instructions Recorded Confirmed buprenorphine 8 mg-naloxone 2 mg 1 film sublingual DAILY 08/04/22 05/30/23 sublingual film (Suboxone) dextroamphetamine-amphetamine 20 1 tab PO BID 08/04/22 05/30/23 mg tablet trazodone 100 mg tablet 50 mg PO PRN PRN 08/04/22 05/30/23 Allergies Allergy/AdvReac Type Severity Reaction Status Date / Time No Known Allergies Allergy Unverified 05/30/23 19:54 General Stated Complaint: Abd Prob ADRIANA: 3 Review of Systems Narrative: Review of Systems Constitutional: negative Eyes: negative ENT: negative Cardiovascular: negative Respiratory: negative Gastrointestinal: Abdominal pain, nausea : negative Musculoskeletal: negative Skin: negative Neurologic: negative Psych: negative PFSH All Active Problems (Updated 05/30/23 @ 22:12 by Melvin Espinosa MD) Pancreatitis (Acute) Social History Smoking/Tobacco Use Status: Current every day Smoking risk assessment performed?: Yes Alcohol Intake: current Alcohol Intake frequency: a few times a month Drug use: Current Sobriety Substance use type: does not use Do you feel safe at home: Yes Do you feel safe in your relationship?: Yes Exam Narrative Exam Narrative: Physical Examination General: alert, awake, cooperative, resting comfortably, no acute distress HEENT: normocephalic, atraumatic; PERRL, EOM intact, conjunctiva normal; no nasal discharge; moist mucous membranes, oral and pharyngeal mucosa normal, tolerating secretions Neck: supple, trachea midline; full ROM Chest: normal to inspection Respiratory: normal respiratory effort, speaking in full sentences, clear to auscultation, no wheezing, rales or rhonchi Cardiac: Tachycardia, regular rhythm, S1S2 intact, no murmurs rubs or gallops GI: abdomen soft, non-tender, non-distended; no palpable mass or hepatosplenomegaly Skin: no lesions, rashes or trauma appreciated Neuro: AAOx3, normal speech, moving all extremities Psych: Appropriate mood and affect Course Vital Signs Vital signs: Vital Signs Temperature 37.3 C 05/30/23 19:16 Pulse 108 H 05/30/23 19:16 Respiratory Rate 18 05/30/23 19:16 Blood Pressure 178/101 H 05/30/23 19:16 Pulse Oximetry 98 05/30/23 19:16 Temperature 37.3 C 05/30/23 19:16 Pulse 109 H 05/30/23 19:19 Respiratory Rate 18 05/30/23 19:19 Respiratory Effort Normal 05/30/23 19:19 Blood Pressure 176/104 H 05/30/23 19:19 Pulse Oximetry 97 05/30/23 19:19 Oxygen Delivery Method Room Air 05/30/23 19:19 Oxygen Flow Rate 0 05/30/23 19:16 Pain Level 10 05/30/23 19:19 Comment bg 184 05/30/23 19:16 PAWSS Have you Been Recently Intoxicated or Drunk Within the Last 30 days?: No Have you Ever Experienced Previous Episodes of Alcohol Withdrawal?: No Have you ever Experienced Withdrawal Seizures?: No Have you ever Experienced Delirium Tremens(DT)s?: No Have you ever undergone Alcohol Rehabilitation Treatment (i.e, inpt ot outpatient treatment programs)?: No Have you ever Experienced Blackouts?: No Have you ever Combined Alcohol with other Downers within the last 90 days?: No Have you ever Combined Alcohol with any other Substance of Abuse during the last 90 days?: No Positive Blood Alcohol level on Presentation? [PCS.BAL]: Yes Evidence of Increased Autonomic Activity (i.e. HR>120, tremor, sweating, agitation, nausea)?: Yes Result: 2
[2023-05-30 19:40] LABS: Abs Immature Grans 0.07 10^3/uL (0.0-0.06); Absolute Basophil Count 0.09 10^3/uL (0.0-0.2); Absolute Eosinophil Count 0.19 10^3/uL (0.0-0.7); Absolute Lymphocyte Count 1.04 10^3/uL (1.2-3.4); Absolute Monocyte Count 1.22 10^3/uL (0.1-0.8); Absolute Neutrophil Count 9.75 10^3/uL (1.2-6.7); Basophils % 0.7; Eosinophils % 1.5; HCT 47.6 % (36.0-46.0); HGB 17.2 g/dL (11.2-15.7); Immature Grans % 0.6; Lymphocytes % 8.4; MCH 34.5 pg (27.0-33.0); MCHC 36.1 % (32.0-36.0); MCV 96 fL (80-95); MPV 10.3 fL (8.0-11.0); Monocytes % 9.9; Neutrophils % 78.9; Platelet Count 243 10^3/uL (130-400); RBC 4.98 10^6/uL (3.93-5.22); RDW-SD 45.8 fL; WBC 12.36 10^3/uL (4.4-10.8)
[2023-05-30 19:41] LABS: Bilirubin Moderate (Negative); Blood Trace-intact (Negative); Clarity Sl Cloudy (Clear); Glucose 100 mg/dL (Negative); Ketones Negative (Negative); Leukocyte Esterase Negative (Negative); Nitrite Positive (Negative); Specific Gravity >= 1.030 (1.005-1.025)
[2023-05-30 19:48] LABS: Bacteria Moderate HPF (Negative); Epithelial Cells Rare HPF (Negative)
[2023-05-30] MEDS: Normal Saline 1,000 ML 1000 ML IV (19:48)
[2023-05-30] MEDS: Ondansetron 4 MG/2 ML VIAL IVP (19:48)
[2023-05-30 19:49] LABS: C & S Indicated? Yes; Casts Negative LPF (Negative); Crystals Negative HPF (Negative); Mucus Heavy (Negative)
[2023-05-30] MEDS: Famotidine 20 MG/2 ML VIAL IVP (19:49)
[2023-05-30 19:56] LABS: *AMPHETAMINES SCREEN URINE Positive (Negative); *BARBITURATES SCREEN URINE Negative (Negative); *BENZODIAZEPINES SCREEN URINE Negative (Negative); ALT 113 U/L (14-59); AST 152 U/L (15-37); Albumin 3.1 g/dL (3.4-5.0); Alkaline Phosphatase 216 U/L (46-116); Anion Gap 7.2 mmol/L (3-11); BUN 6 mg/dL (7-18); Bilirubin, Total 1.8 mg/dL (0.2-1.0); CO2 33.8 mmol/L (21.0-32.0); CREATININE 0.6 mg/dL (0.55-1.02); Calcium 8.7 mg/dL (8.5-10.1); Cannabinoids THC Positive (Negative); Chloride 97 mmol/L (98-107); Cocaine Screen,Urine Negative (Negative); Estimated GFR 114.86 (mL/min/1.73m2); Glucose 193 mg/dL (74-106); METHADONE URINE SCREEN Negative (Negative); OPIATES URINE SCREEN Negative (Negative); Sodium 138 mmol/L (136-145)
[2023-05-30 19:58] LABS: Tricyclic Antidepressants Negative (Negative)
[2023-05-30 20:02] LABS: Lipase 301 U/L (16-77); Potassium 2.2 mmol/L (3.5-5.1)
[2023-05-30 20:04] LABS: ETHANOL BLOOD < 3.0 mg/dL (<10)
[2023-05-30] MEDS: Normal Saline - Diluent 50 ML VIAL IJ (20:18)
[2023-05-30] MEDS: Omnipaque 350 MG/ML 100 ML BTL IJ (20:19)
[2023-05-30] MEDS: POTASSIUM CHLORIDE 20 MEQ/100 ML BAG 50 MEQ IVPB (20:20)
[2023-05-30] MEDS: Normal Saline Flush 10 ML SYR IVP ×2 (20:37→23:27)
--- NOTE | 2023-05-30 20:49 | DI.VRAD_ITS ---
PROCEDURE INFORMATION: Exam: CT Abdomen And Pelvis With Contrast Exam date and time: 05/30/2023 8:26 PM Age: 43 years old Clinical indication: Abdominal pain; Generalized; Prior surgery; Surgery date: 6+ months; Surgery type: Gallbladder and pancreatic; Patient HX: HX of recurrent pancreatitis, pseudocyst TECHNIQUE: Imaging protocol: Computed tomography of the abdomen and pelvis with contrast. Radiation optimization: All CT scans at this facility use at least one of these dose optimization techniques: automated exposure control; mA and/or kV adjustment per patient size (includes targeted exams where dose is matched to clinical indication); or iterative reconstruction. Contrast material: OMNIPAQUE 350; Contrast volume: 90 ml; Contrast route: INTRAVENOUS (IV); COMPARISON: CT ABDOMEN PELVIS W 08/03/2022 9:36 PM FINDINGS: Lungs: The lungs are normal. Pleural spaces: There is no evidence of pneumothorax. There are no pleural effusions present. Heart: The cardiac structures are normal. Liver: There is a diffuse decrease in hepatic parenchymal density, consistent with moderate fatty infiltration. There are no focal liver lesions present. There is no evidence of intrahepatic or extrahepatic biliary ductal dilation. The liver is enlarged measuring 20 cm. Gallbladder and bile ducts: There is no evidence of intrahepatic or extrahepatic biliary ductal dilation. Pancreas: There is diffuse peripancreatic inflammatory stranding and fluid, consistent with acute pancreatitis. Findings consistent with chronic pancreatitis with recurrent stranding of the soft tissues adjacent to the pancreas, dilation of the pancreatic and distal common bile duct, and presence of large pseudocyst within the junction of the head and body of the pancreas measuring 7.6 x 9 cm. Spleen: The spleen is borderline enlarged but otherwise normal. Adrenal glands: The adrenal glands are normal. Kidneys and ureters: The kidneys are normal. Stomach and bowel: No obstruction. No mucosal thickening. Appendix: There is no evidence of appendicitis. Intraperitoneal space: Unremarkable. No free air. No significant fluid collection. Vasculature: There is a prominent left ovarian vein with large pelvic venous collaterals present. The findings are consistent with pelvic congestion physiology. Clinical correlation as to presence of pelvic congestion syndrome recommended. The aorta is unremarkable without evidence of significant atherosclerosis or aneurysmal disease. The peripheral arterial vascular system visualized is unremarkable. The portal venous system visualized is unremarkable. The peripheral venous vascular system visualized is unremarkable. Lymph nodes: Unremarkable. No enlarged lymph nodes. Urinary bladder: Unremarkable as visualized. Reproductive: There is an IUD present in good position. Bones/joints: The skeletal structures and soft tissues show no evidence of fracture or other acute processes. The skeletal structures and soft tissues show no evidence of fracture or other acute processes. Soft tissues: The extra-abdominal soft tissues are normal. The extra-abdominal soft tissues are normal. There is a fat-containing umbilical hernia. IMPRESSION: 1. There is diffuse peripancreatic inflammatory stranding and fluid, consistent with acute pancreatitis. Findings consistent with chronic pancreatitis with stranding of the soft tissues adjacent to the pancreas, dilation of the pancreatic and distal common bile duct, and presence of large pseudocyst within the junction of the head and body of the pancreas measuring 7.6 x 9 cm. 2. There is a prominent left ovarian vein with large pelvic venous collaterals present. The findings are consistent with pelvic congestion physiology. Clinical correlation as to presence of pelvic congestion syndrome recommended. Dictated and Authenticated by: Milad Pierce MD. Ordering:NA Charles MD
[2023-05-30] MEDS: Lactated Ringers 1,000 ML 1000 ML IV (21:11)
[2023-05-30] MEDS: HYDROmorphone 2 MG/ML SYR 1 MG IVP ×2 (21:18→23:27)
--- NOTE | 2023-05-30 22:23 | HPE_ITS ---
Date of service: 05/30/23 Time of Service: 22:23 Assessment and Plan Assessment and plan (1) Acute on chronic pancreatitis: Status: Acute Assessment and plan: Aggressive IVF, clear liquids. Pain control with IV toradol and IV dilaudid. Trend CRP. (2) Pancreatic pseudocyst: Status: Chronic Assessment and plan: needs outpatient follow up with GI (3) Hypokalemia: Status: Acute Assessment and plan: Replete; also, replete magnesium (4) Hypomagnesemia: Status: Acute Assessment and plan: Replete (5) Opioid dependence on agonist therapy: Status: Chronic Assessment and plan: Holding suboxone dose for now given that we are attempting to manage the patient's pain and may have to give her more opioids. We will also need to double check her dose. (6) DVT prophylaxis: Status: Acute Assessment and plan: SC enoxaparin (7) Discharge planning issues: Status: Acute Assessment and plan: Full code Admit to medical surgical floor with tele History of Present Illness History of Present Illness Chief Complaint: Abdominal pain, nausea, decreased PO intake Narrative: Ms Alexis is a 43 year old female with PMHx of chronic recurrent pancreatitis, presumably due gallstones, though there is also a h/o EtOH use, with a known pseudocyst, s/p cholecystectomy and 2 prior pancreatic cystectomies at [facility], as well as h/o substance use on suboxone therapy via [facility], ADHD, and insomnia, who presented to [facility] ED c/o upper abdominal pain, radiating circumferentially to the back, as well as nausea, dry heaving, and decreased PO intake x 3 days. The patient did not feel that bad for the first two days, so she, in fact, had two beers the day before her presentation, but then she noticed her pain get a lot worse. Her ER workup is c/w acute on chronic pancreatitis. Additionally, she has hypokalemia and hypomagnesemia. Hospitalist admission was requested. 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 We discussed the possibility of her getting referred to one in [place]. Review of Systems All systems reviewed & are unremarkable except as noted in HPI and below PFSH All Active Problems Insomnia (Acute) ADHD (Acute) Discharge planning issues (Acute) DVT prophylaxis (Acute) Opioid dependence on agonist therapy (Chronic) Hypomagnesemia (Acute) Hypokalemia (Acute) Acute on chronic pancreatitis (Acute) Pancreatic pseudocyst (Chronic) Chronic pancreatitis (Acute) Pancreatitis (Acute) Surgical History S/P cholecystectomy and removal of two pancreatic pseudocysts Social History (Updated 05/31/23 @ 00:12 by Meg Newman MD) Smoking/Tobacco Use Status: Current every day Tobacco Type: cigarettes Smoking packs per day: 0.5 Smoking cigarettes per day: 10.0 Years smoked: 27 Smoking pack-years: 13.50 Quit status: considering quitting Counseling given: provider counseling and support medications Smoking risk assessment performed?: Yes Alcohol Intake: current Alcohol Intake frequency: a few times a month Alcohol type: beer Counseling provided: provider counseling Drug use: Current Sobriety Substance use type: does not use Housing: apartment Do you feel safe at home: Yes Do you feel safe in your relationship?: Yes Meds Allergies and Home Medications Allergies Allergy/AdvReac Type Severity Reaction Status Date / Time No Known Allergies Allergy Unverified 05/30/23 19:54 Home Medications Medication Instructions Recorded Confirmed Type buprenorphine 8 mg-naloxone 2 mg 1 film sublingual DAILY 08/04/22 05/30/23 History sublingual film (Suboxone) dextroamphetamine-amphetamine 20 1 tab PO BID 08/04/22 05/30/23 History mg tablet trazodone 100 mg tablet 50 mg PO PRN PRN 08/04/22 05/30/23 History Exam Narrative Exam Narrative: General: A very pleasant female who is sitting up in bed, taking shallow breaths, A&Ox3, appears uncomfortable Neurological: A&Ox3, no focal deficits Psychiatric: Appropriate speech pattern/content Skin: Visible skin with tattoos, otherwise intact HEENT: Atraumatic, normocephalic, EOMI, dry MM, clear oropharynx, no submandinbular or cervical lymphadenopathy, no goiter or JVD Cardiovascular: RRR, no m/r/g Lungs: Diminished breath sounds at B bases Gastrointestinal: soft, tender in epigastrium, nondistended Genitourinary: deferred Extremities: no edema BLEs, 2+ pedal pulses B Results Imaging Additional studies: CT abdomen/pelvis: 1. There is diffuse peripancreatic inflammatory stranding and fluid, consistent with acute pancreatitis. Findings consistent with chronic pancreatitis with stranding of the soft tissues adjacent to the pancreas, dilation of the pancreatic and distal common bile duct, and presence of large pseudocyst within the junction of the head and body of the pancreas measuring 7.6 x 9 cm. 2. There is a prominent left ovarian vein with large pelvic venous collaterals present. The findings are consistent with pelvic congestion physiology. Clinical correlation as to presence of pelvic congestion syndrome recommended. Labs 05/30/23 19:30 05/30/23 19:30 Labs: Laboratory Results - last 24 hr 05/30/23 19:30 WBC 12.36 H RBC 4.98 Hgb 17.2 H Hct 47.6 H MCV 96 H MCH 34.5 H MCHC 36.1 H RDW 13.0 Plt Count 243 MPV 10.3 Immature Gran % 0.6 Neutrophils % 78.9 Lymphocytes % 8.4 Monocytes % 9.9 Eosinophils % 1.5 Basophils % 0.7 Nucleated RBC % 0.0 Absolute Neutrophils 9.75 H Absolute Lymphocytes 1.04 L Absolute Monocytes 1.22 H Absolute Eosinophils 0.19 Absolute Basophils 0.09 Sodium 138 Potassium 2.2 L* Chloride 97 L Carbon Dioxide 33.8 H Anion Gap 7.2 BUN 6 L Creatinine 0.6 Est GFR (CKD-EPI 2020) 114.86 Glucose 193 H Calcium 8.7 Total Bilirubin 1.8 H AST 152 H ALT 113 H Alkaline Phosphatase 216 H Total Protein 7.0 Albumin 3.1 L Lipase 301 H Urine Color Dark Yellow Urine Clarity Sl Cloudy Urine pH 6.0 Ur Specific [place] >= 1.030 H Urine Protein 100 H Urine Ketones Negative Urine Blood Trace-intact H Urine Nitrite Positive H Urine Bilirubin Moderate H Urine Urobilinogen 1.0 H Ur Leukocyte Esterase Negative Urine RBC 3-5 H Urine WBC 5-10 Ur Epithelial Cells Rare Urine Crystals Negative Urine Bacteria Moderate Urine Casts Negative Urine Mucus Heavy Ur Culture Indicated? Yes Urine Glucose 100 H Urine Opiates Screen Negative Urine Methadone Screen Negative Ur Barbiturates Screen Negative Ur Tricyclics Screen Negative Ur Amphetamines Screen Positive A U Benzodiazepines Scrn Negative Urine Cocaine Screen Negative Ur THC Screen Positive A Ethyl Alcohol < 3.0 Last Vital Signs Temp 37.3 C 05/30/23 19:16 Pulse 84 05/30/23 21:01 Resp 30 H 05/30/23 21:10 BP 182/97 H 05/30/23 21:01 Pulse Ox 97 05/30/23 21:10 PAWSS Have you Been Recently Intoxicated or Drunk Within the Last 30 days?: No Have you Ever Experienced Previous Episodes of Alcohol Withdrawal?: No Have you ever Experienced Withdrawal Seizures?: No Have you ever Experienced Delirium Tremens(DT)s?: No Have you ever undergone Alcohol Rehabilitation Treatment (i.e, inpt ot outpatient treatment programs)?: No Have you ever Experienced Blackouts?: No Have you ever Combined Alcohol with other Downers within the last 90 days?: No Have you ever Combined Alcohol with any other Substance of Abuse during the last 90 days?: No Positive Blood Alcohol level on Presentation? [PCS.BAL]: Yes Evidence of Increased Autonomic Activity (i.e. HR>120, tremor, sweating, agitation, nausea)?: Yes Result: 2 Time Spent Time spent with Patient: 55-74 minutes Time was spent: preparing to see the patient(eg.review tests), obtaining and/or reviewing separately otained hiistory, ordering medications,tests, procedures, referring, communicating with other health care connector, indepentently interpreting results, counseling the patient and care coordination
[2023-05-30 22:24] LABS: Lab Add On Test DONE
[2023-05-30 22:34] LABS: Magnesium 1.2 mg/dL (1.8-2.4)
[2023-05-30 23:06] LABS: Lab Add On Test DONE
[2023-05-30 23:36] LABS: Procalcitonin < 0.1 ng/mL
[2023-05-31] VITALS (8 sets, daily range): BP systolic 134–162; BP diastolic 89–105; PULSE 69–87; RESP 16–18; TEMP 35.9–36.7; O2SAT 94–99
[2023-05-31] MEDS: Ketorolac 30 MG/ML VIAL IVP ×4 (00:30→21:14)
[2023-05-31] MEDS: POTASSIUM CHLORIDE 20 MEQ/100 ML BAG 50 MEQ IVPB ×4 (00:33→06:45)
[2023-05-31] MEDS: POTASSIUM CHLORIDE/0.9% NACL 1,000 ML 150 MEQ IV ×2 (00:34→07:30)
[2023-05-31] MEDS: HYDROmorphone 2 MG/ML SYR IVP ×6 (01:01→14:29)
[2023-05-31] MEDS: traZODone 100 MG TAB 50 MG PO ×2 (01:02→20:01)
[2023-05-31] MEDS: Milk of Magnesia 30 ML CUP PO (01:02)
[2023-05-31] MEDS: Nicotine 7 MG/24 HR PATCH TD ×2 (01:03→08:28)
[2023-05-31] MEDS: MAGNESIUM SULFATE 4 GM/100 ML BAG IVPB (01:04)
[2023-05-31] MEDS: Normal Saline Flush 10 ML SYR IVP ×3 (01:05→11:46)
[2023-05-31 07:28] LABS: Abs Immature Grans 0.04 10^3/uL (0.0-0.06); Absolute Basophil Count 0.05 10^3/uL (0.0-0.2); Absolute Eosinophil Count 0.41 10^3/uL (0.0-0.7); Absolute Lymphocyte Count 1.31 10^3/uL (1.2-3.4); Absolute Monocyte Count 0.92 10^3/uL (0.1-0.8); Absolute Neutrophil Count 4.68 10^3/uL (1.2-6.7); Basophils % 0.7; Eosinophils % 5.5; HCT 41.2 % (36.0-46.0); HGB 14.8 g/dL (11.2-15.7); Immature Grans % 0.5; Lymphocytes % 17.7; MCH 35.2 pg (27.0-33.0); MCHC 35.9 % (32.0-36.0); MCV 98 fL (80-95); MPV 10.4 fL (8.0-11.0); Monocytes % 12.4; Neutrophils % 63.2; Platelet Count 178 10^3/uL (130-400); RBC 4.21 10^6/uL (3.93-5.22); RDW 13.2 % (11.7-14.6); WBC 7.41 10^3/uL (4.4-10.8)
[2023-05-31 07:46] LABS: ALT 83 U/L (14-59); AST 116 U/L (15-37); Albumin 2.2 g/dL (3.4-5.0); Alkaline Phosphatase 162 U/L (46-116); BUN 5 mg/dL (7-18); Bilirubin, Direct 0.5 mg/dL (0.0-0.2); Bilirubin, Total 1.8 mg/dL (0.2-1.0); C-Reactive Protein 1.19 mg/dL (0.0-0.3); CREATININE 0.5 mg/dL (0.55-1.02); Calcium 7.6 mg/dL (8.5-10.1); Estimated GFR 120.02 (mL/min/1.73m2); Glucose 97 mg/dL (74-106); Magnesium 2.7 mg/dL (1.8-2.4); Total Protein 5.5 g/dL (6.4-8.2)
[2023-05-31 07:58] LABS: Chloride 104 mmol/L (98-107); Sodium 140 mmol/L (136-145)
[2023-05-31 07:59] LABS: Lipase 271 U/L (16-77)
[2023-05-31] MEDS: Mylanta Suspension 30 ML CUP PO (08:27)
[2023-05-31] MEDS: Senna TAB 1 TAB PO ×2 (08:27→20:01)
[2023-05-31] MEDS: Polyethylene Glycol 3350 17 GM PACKET PO (08:27)
[2023-05-31] MEDS: Docusate Sodium 100 MG CAP PO ×2 (08:27→20:01)
[2023-05-31] MEDS: Enoxaparin 40 MG/0.4 ML SYR SC (08:28)
[2023-05-31] MEDS: Pantoprazole 40 MG VIAL IVP (08:29)
[2023-05-31] MEDS: Magnesium Chloride 64 MG TABCR 128 MG PO (08:29)
[2023-05-31] MEDS: Amphet Asp/Amphet/D-Amphet 10 MG TAB 30 MG PO (09:58)
--- NOTE | 2023-05-31 10:49 | PGE_ITS ---
Date of Service Date of service: 05/31/23 Time of Service: 10:49 Assessment and Plan Assessment and plan (1) Acute on chronic pancreatitis: Status: Acute Assessment and plan: Will stop aggressive IVF as she appears euvolemic and is tolerating clear liquids. Pain control with IV toradol and IV dilaudid. Trend CRP. (2) Pancreatic pseudocyst: Status: Chronic Assessment and plan: needs outpatient follow up with GI (3) Hypokalemia: Status: Resolved Assessment and plan: Normalized this morning after repleted; also, repleted magnesium Will continue to monitor (4) Hypomagnesemia: Status: Resolved Assessment and plan: 2.7 this morning (5) Opioid dependence on agonist therapy: Status: Chronic Assessment and plan: Holding suboxone dose for now given that we are attempting to manage the patient's pain and may have to give her more opioids. We will also need to double check her dose. (6) DVT prophylaxis: Status: Acute Assessment and plan: SC enoxaparin (7) Discharge planning issues: Status: Acute Assessment and plan: Full code Anticipated discharge to home with no services once medically stable Discussed with Dr. Spring Subjective Subjective Interval history since last seen: No fever overnight patient reports pain but that is improving. She is tolerating a clear liquid diet with no nausea or vomiting Exam Narrative Exam Narrative: Chronically ill-appearing female in no acute distress head is atraumatic oral mucosa is moist neck is supple no JVD cardiovascular regular rate and rhythm breath sounds are clear bilaterally diminished in the bases respirations are even and unlabored abdomen is slightly distended generalized tenderness no guarding no rebound her extremities she has peripheral edema bilaterally and hands are discolored/reddened. Psychiatric her mood and affect are appropriate she is cooperative Objective Last Vital Signs Temp 36.4 C L 05/31/23 07:37 Pulse 83 05/31/23 07:37 Resp 18 05/31/23 07:37 BP 148/99 H 05/31/23 07:37 Pulse Ox 98 05/31/23 07:37 Laboratory Results - last 24 hr 05/30/23 05/30/23 05/30/23 19:30 22:18 23:02 WBC 12.36 H RBC 4.98 Hgb 17.2 H Hct 47.6 H MCV 96 H MCH 34.5 H MCHC 36.1 H RDW 13.0 Plt Count 243 MPV 10.3 Immature Gran % 0.6 Neutrophils % 78.9 Lymphocytes % 8.4 Monocytes % 9.9 Eosinophils % 1.5 Basophils % 0.7 Nucleated RBC % 0.0 Absolute Neutrophils 9.75 H Absolute Lymphocytes 1.04 L Absolute Monocytes 1.22 H Absolute Eosinophils 0.19 Absolute Basophils 0.09 Sodium 138 Potassium 2.2 L* Chloride 97 L Carbon Dioxide 33.8 H Anion Gap 7.2 BUN 6 L Creatinine 0.6 Est GFR (CKD-EPI 2020) 114.86 Glucose 193 H Calcium 8.7 Magnesium 1.2 L Total Bilirubin 1.8 H Conjugated Bilirubin AST 152 H ALT 113 H Alkaline Phosphatase 216 H C-Reactive Protein Total Protein 7.0 Albumin 3.1 L Lipase 301 H Procalcitonin < 0.1 Urine Color Dark Yellow Urine Clarity Sl Cloudy Urine pH 6.0 Ur Specific [place] >= 1.030 H Urine Protein 100 H Urine Ketones Negative Urine Blood Trace-intact H Urine Nitrite Positive H Urine Bilirubin Moderate H Urine Urobilinogen 1.0 H Ur Leukocyte Esterase Negative Urine RBC 3-5 H Urine WBC 5-10 Ur Epithelial Cells Rare Urine Crystals Negative Urine Bacteria Moderate Urine Casts Negative Urine Mucus Heavy Ur Culture Indicated? Yes Urine Glucose 100 H Urine Opiates Screen Negative Urine Methadone Screen Negative Ur Barbiturates Screen Negative Ur Tricyclics Screen Negative Ur Amphetamines Screen Positive A U Benzodiazepines Scrn Negative Urine Cocaine Screen Negative Ur THC Screen Positive A Ethyl Alcohol < 3.0 Add-On Test Request DONE DONE 05/31/23 06:41 WBC 7.41 RBC 4.21 Hgb 14.8 D Hct 41.2 MCV 98 H MCH 35.2 H MCHC 35.9 RDW 13.2 Plt Count 178 MPV 10.4 Immature Gran % 0.5 Neutrophils % 63.2 Lymphocytes % 17.7 Monocytes % 12.4 Eosinophils % 5.5 Basophils % 0.7 Nucleated RBC % 0.0 Absolute Neutrophils 4.68 Absolute Lymphocytes 1.31 Absolute Monocytes 0.92 H Absolute Eosinophils 0.41 Absolute Basophils 0.05 Sodium 140 Potassium 4.0 D Chloride 104 Carbon Dioxide 31.0 Anion Gap 5.0 BUN 5 L Creatinine 0.5 L Est GFR (CKD-EPI 2020) 120.02 Glucose 97 Calcium 7.6 L Magnesium 2.7 H Total Bilirubin 1.8 H Conjugated Bilirubin 0.5 H AST 116 H ALT 83 H Alkaline Phosphatase 162 H C-Reactive Protein 1.19 H Total Protein 5.5 L Albumin 2.2 L Lipase 271 H Procalcitonin Urine Color Urine Clarity Urine pH Ur Specific [place] Urine Protein Urine Ketones Urine Blood Urine Nitrite Urine Bilirubin Urine Urobilinogen Ur Leukocyte Esterase Urine RBC Urine WBC Ur Epithelial Cells Urine Crystals Urine Bacteria Urine Casts Urine Mucus Ur Culture Indicated? Urine Glucose Urine Opiates Screen Urine Methadone Screen Ur Barbiturates Screen Ur Tricyclics Screen Ur Amphetamines Screen U Benzodiazepines Scrn Urine Cocaine Screen Ur THC Screen Ethyl Alcohol Add-On Test Request PAWSS Have you Been Recently Intoxicated or Drunk Within the Last 30 days?: No Have you Ever Experienced Previous Episodes of Alcohol Withdrawal?: No Have you ever Experienced Withdrawal Seizures?: No Have you ever Experienced Delirium Tremens(DT)s?: No Have you ever undergone Alcohol Rehabilitation Treatment (i.e, inpt ot outpatient treatment programs)?: No Have you ever Experienced Blackouts?: No Have you ever Combined Alcohol with other Downers within the last 90 days?: No Have you ever Combined Alcohol with any other Substance of Abuse during the last 90 days?: No Positive Blood Alcohol level on Presentation? [PCS.BAL]: No Evidence of Increased Autonomic Activity (i.e. HR>120, tremor, sweating, agitation, nausea)?: No Result: 0 Time Spent with Patient Time Spent with Patient: 25-34 minutes Time was spent: preparing to see the patient(eg.review tests), obtaining and/or reviewing separately otained hiistory, ordering medications,tests, procedures, indepentently interpreting results and counseling the patient
[2023-05-31] MEDS: Amphet Asp/Amphet/D-Amphet 10 MG TAB 20 MG PO (11:45)
[2023-05-31] MEDS: Buprenorphine/Naloxone 8 mg/2 mg FILM 1 EACH SL (16:35)
--- NOTE | 2023-05-31 17:08 | PDOC.CMIN ---
Date of service: 05/31/23 Time of Service: 17:08 Care Management Initial Assmt Initial Assessment REASON FOR HOSPITALIZATION:: Acute pancreatitis, hypokalemia PREVIOUS FUNCTIONAL STATUS/SOCIAL/FAMILY SUPPORTS:: Resides in [facility] with significant other. ADVANCE DIRECTIVES:: None on file Has patient been provided with info about the portal/API?: Yes Did the patient sign up for the portal?: No INSURANCE COVERAGE / FINANCIAL ISSUES:: James WEBSTER CURRENT HOME/COMMUNITY SERVICES/EQUIPMENT:: [facility] PRIMARY CARE PHYSICIAN:: None POTENTIAL DISCHARGE NEEDS:: PCP F/U (hx of missing F/U) PATIENT/FAMILY EDUCATION NEEDS:: Review discharge instructions, discuss Ask Me Three. ANTICIPATED BARRIERS TO DISCHARGE:: None identified. TRANSPORTATION:: Via private vehicle with [facility] or with a friend. PLAN:: Dolly will return home with outpatient follow up. CM continues to follow. PFSH All Active Problems (Updated 05/31/23 @ 10:52 by Tanya Shaw NP) Insomnia (Acute) ADHD (Acute) Discharge planning issues (Acute) DVT prophylaxis (Acute) Opioid dependence on agonist therapy (Chronic) Acute on chronic pancreatitis (Acute) Pancreatic pseudocyst (Chronic) Chronic pancreatitis (Acute) Pancreatitis (Acute) Surgical History S/P cholecystectomy and removal of two pancreatic pseudocysts Social History (Updated 05/31/23 @ 00:12 by Meg Newman MD) Smoking/Tobacco Use Status: Current every day Tobacco Type: cigarettes Smoking packs per day: 0.5 Smoking cigarettes per day: 10.0 Years smoked: 27 Smoking pack-years: 13.50 Quit status: considering quitting Counseling given: provider counseling and support medications Smoking risk assessment performed?: Yes Alcohol Intake: current Alcohol Intake frequency: a few times a month Alcohol type: beer Counseling provided: provider counseling Drug use: Current Sobriety Substance use type: does not use Housing: apartment Do you feel safe at home: Yes Do you feel safe in your relationship?: Yes
[2023-05-31] MEDS: Acetaminophen 325 MG TAB PO (20:01)
[2023-06-01] MEDS: Ketorolac 30 MG/ML VIAL IVP ×2 (03:06→09:44)
[2023-06-01 03:10] VITALS: BP 153/99; PULSE 77; RESP 18; TEMP 36.7; O2SAT 100
[2023-06-01] MEDS: Milk of Magnesia 30 ML CUP PO (03:13)
[2023-06-01 08:12] VITALS: BP 156/109; PULSE 75; RESP 18; TEMP 35.6; O2SAT 100
[2023-06-01] MEDS: Enoxaparin 40 MG/0.4 ML SYR SC (08:21)
[2023-06-01] MEDS: Pantoprazole 40 MG VIAL IVP (08:21)
[2023-06-01] MEDS: Normal Saline Flush 10 ML SYR IVP ×2 (08:21→09:44)
[2023-06-01] MEDS: Polyethylene Glycol 3350 17 GM PACKET PO (08:21)
[2023-06-01] MEDS: Amphet Asp/Amphet/D-Amphet 10 MG TAB 30 MG PO (08:23)
[2023-06-01] MEDS: Nicotine 7 MG/24 HR PATCH TD (08:24)
[2023-06-01] MEDS: Buprenorphine/Naloxone 8 mg/2 mg FILM 1 EACH SL (08:24)
[2023-06-01] MEDS: Senna TAB 1 TAB PO (08:24)
[2023-06-01] MEDS: Docusate Sodium 100 MG CAP PO (08:24)
[2023-06-01] MEDS: Bisacodyl 10 MG SUPP PR (09:35)
--- NOTE | 2023-06-01 10:21 | W.PM.DS.N ---
Date of service: 06/01/23 Time of Service: 10:21 DS: Diagnosis Discharge Diagnosis (1) Acute on chronic pancreatitis: Status: Acute (2) Pancreatic pseudocyst: Status: Chronic (3) Hypokalemia: Status: Resolved (4) Hypomagnesemia: Status: Resolved (5) Opioid dependence on agonist therapy: Status: Chronic Discharge Plan Disposition Patient Disposition: Home Condition: Improving Discharge Details Reason For Visit: Acute pancreatitis, hypokalemia Admit Date/Time: 05/30/23 22:18 Admit Provider: Meg Newman Attending Provider: Meg Newman Primary Care Provider: Unknown,Unknown Hospital Course Hospital Course: Ms Alexis is a 43 year old female with history of chronic recurrent pancreatitis, presumably due gallstones, though there is also a history of alcohol use, with a known pseudocyst, s/p cholecystectomy and 2 prior pancreatic cystectomies at [facility] and [facility], as well as history of substance use on suboxone therapy via [facility], ADHD, and insomnia, who presented to [facility] ED with complaints of upper abdominal pain, radiating circumferential to the back, as well as nausea, dry heaving, and decreased oral intake for 3 days. She had two beers the day before her presentation, but then she noticed her pain get a lot worse. Her ER workup is consistent with acute on chronic pancreatitis. Additionally, she was found to have hypokalemia and hypomagnesemia. Hospitalist admission was requested. She was admitted with IV fluids, antiemetics, and pain management and her symptoms slowly improved. she was reambulated. electrolytes repleted. she was complaining of constipation and received relistor with good effect. She was tolerating a regular diet and hemodynamically stable and ready for discharge to home discharge to home with no new services. Home Meds and New Rx's Prescriptions: New trazodone 100 mg Tablet 50 mg PO HS Qty: 0 0RF Continued trazodone 50 mg tablet 50 mg PO HS Patient Comments: take 1 tablet by mouth at bedtime dextroamphetamine-amphetamine 20 mg tablet 1 tab PO BID buprenorphine-naloxone [Suboxone] 8-2 mg film 2 film sublingual DAILY Patient Comments: PLACE 2 UNDER THE TONGUE FOR 18 DAYS Discharge Instructions Instructions: Pancreatitis (DC) Stand Alone Forms: Nursing Discharge Form Referrals: Ana María Daily NON-[facility] STAFF PHYSICIAN] - (PCP will reach out to make apt. ) Activity:: Activity as Tolerated Equipment/Supplies:: No Equipment Needed Diet:: As Tolerated Discharge Orders Discharge Orders: Discharge Order (Routine); Ordered 06/01/23 Ordered By: Tanya Shaw Discharge Data Discharge Date/Time-TO BE ENTERED AT DEPARTURE: 06/01/23 11:33 DS: Summary Time Spent with Patient providing and/or coordinating discharge services: Less than 30 minutes Status at Discharge Functional status at discharge: independent ambulation Overall status at discharge: patient is back to baseline Mental Status: mental status grossly normal Speech and Movement: speech and movement normal Mood: congruent mood Affect: normal affect Exam Narrative Exam Narrative: Chronically ill-appearing female in no acute distress head is atraumatic oral mucosa is moist neck is supple no JVD cardiovascular regular rate and rhythm breath sounds are clear bilaterally diminished in the bases respirations are even and unlabored abdomen is slightly distended generalized tenderness no guarding no rebound her extremities she has peripheral edema bilaterally and hands are discolored/reddened. Psychiatric her mood and affect are appropriate she is cooperative Psych Mental Status: mental status grossly normal Speech and Movement: speech and movement normal Mood: congruent mood Affect: normal affect DS: Data Vitals/I&O Vitals and I&O: Vital Signs Temperature 35.6 C L 06/01/23 08:12 Temperature Source Tympanic 06/01/23 08:12 Pulse 75 06/01/23 08:12 Pulse Rhythm Regular 06/01/23 08:35 Pulse 78 05/30/23 22:50 Respiratory Rate 18 06/01/23 08:12 Respiratory Effort Normal 06/01/23 08:35 Respiratory Depth Normal 06/01/23 08:35 Respiratory Pattern Normal 06/01/23 08:35 Blood Pressure 156/109 H 06/01/23 08:12 Blood Pressure Mean 134 05/30/23 22:31 Pulse Oximetry 100 06/01/23 08:12 Oxygen Delivery Method Room Air 06/01/23 08:12 Oxygen Flow Rate 0 06/01/23 08:12 Pain Level 4 06/01/23 09:57 Comment Nurse notified about BP and pain. 06/01/23 08:12 Intake & Output 05/31/23 05/31/23 06/01/23 11:59 23:59 11:59 Intake Total 2032.5 / 2031.5 600 / 600 Output Total 300 / 300 Balance 1732.5 / 1732.5 600 / 600 Weight 67.313 kg Intake: IV 2031.5 / 2031.5 Oral 600 / 600 Output: Urine 300 / 300 Other: Urine Color Yellow Urine Appearance Cloudy Cloudy Urine Odor Strong Comment unmeasured void Data Completed and Pending Labs on day of discharge: Preliminary micro results at discharge 05/30/23 19:30 Urine Culture - Preliminary Urine - Reflex from Ua Gram Negative Tony Gram Negative Toyn#2 PFSH All Active Problems (Updated 05/31/23 @ 10:52 by Tanya Shaw NP) Insomnia (Acute) ADHD (Acute) Discharge planning issues (Acute) DVT prophylaxis (Acute) Opioid dependence on agonist therapy (Chronic) Acute on chronic pancreatitis (Acute) Pancreatic pseudocyst (Chronic) Chronic pancreatitis (Acute) Pancreatitis (Acute) Surgical History S/P cholecystectomy and removal of two pancreatic pseudocysts Social History (Updated 05/31/23 @ 00:12 by Meg Newman MD) Smoking/Tobacco Use Status: Current every day Tobacco Type: cigarettes Smoking packs per day: 0.5 Smoking cigarettes per day: 10.0 Years smoked: 27 Smoking pack-years: 13.50 Quit status: considering quitting Counseling given: provider counseling and support medications Smoking risk assessment performed?: Yes Alcohol Intake: current Alcohol Intake frequency: a few times a month Alcohol type: beer Counseling provided: provider counseling Drug use: Current Sobriety Substance use type: does not use Housing: apartment Do you feel safe at home: Yes Do you feel safe in your relationship?: Yes Time Spent with Patient Time Spent with Patient: <45 minutes Time was spent: preparing to see the patient(eg.review tests), obtaining and/or reviewing separately otained hiistory, ordering medications,tests, procedures, indepentently interpreting results and counseling the patient
[2023-06-01] MEDS: Methylnaltrexone 12 MG/0.6 ML VIAL SC (11:28)
[2023-06-01] MEDS: Amphet Asp/Amphet/D-Amphet 10 MG TAB 20 MG PO (11:28)
--- NOTE | 2023-06-01 16:54 | PDOC.CMDIS ---
Date of service: 06/01/23 Time of Service: 16:54 LACE Index Scoring Tool Questions: Length of Stay (in days): 2 Was the patient admitted via the E.D.?: Yes Comorbidities: Liver or Renal Disease E.D. Visits: 1 Answers: Total Score: 11 Risk of Readmission: High Risk Care Management Discharge Plan Reason for Hospitalization: Acute pancreatitis, hypokalemia Discharge Plan: Home, no services, via private vehicle. Patient/Family Education Needs: Review discharge instructions, discuss Ask Me Three.
== END 2023-06-01 11:33 | disposition home or self-care (01) | DRG 439 ==
LOC: ER 22:12 → MS 23:11
PROVIDERS: Admitting Provider Internal Medicine; Emergency Provider Emergency Medicine; Visit Provider Internal Medicine
DX: K85.10 Biliary acute pancreatitis without necrosis or infection (principal); F11.20 Opioid dependence, uncomplicated; K86.3 Pseudocyst of pancreas; E87.6 Hypokalemia; E83.42 Hypomagnesemia; K86.1 Other chronic pancreatitis; F90.9 Attention-deficit hyperactivity disorder, unspecified type; G47.00 Insomnia, unspecified; F17.210 Nicotine dependence, cigarettes, uncomplicated; F10.90 Alcohol use, unspecified, uncomplicated
CPT/HCPCS: 00123; 36415; 36416; 80048; 80053; 80076; 80307; 81025; 82962; 83690; 84145; 87077; 96361; 96365; 96366; 96375; 96376; 99285; J1650; 74177; 80320; 81003; 81015; 83735; 85025; 86140; 87086; 87186; 99223; 99233; 99238; J1170; J1885; J2405; J3475; J3480; J3490

== ENCOUNTER 2023-10-26 19:11 | Inpatient (IN) | payer MEDICARE, SELFPAY ==
[2023-10-26] VITALS (46 sets, daily range): BP systolic 67–133; BP diastolic 43–80; PULSE 84–149; RESP 13–36; TEMP 36.9; O2SAT 98–100
--- NOTE | 2023-10-26 19:15 | RT.EKG_ITS ---
APPROVED REPORT Exam: Resting ECG Reason for Exam: SOB Patient Location: E HR:138 bpm ECG Measurements Heart Rate 138 AXIS KS 166 P 65 QRSd 82 QRS 46 QT 238 T 210 QTc 360 Conclusion Sinus tachycardia...rate> 99 Repol abnrm suggests ischemia, diffuse leads...ST-T neg, ant/lat/inf Sinus tachycardia, normal pr interval, LAE, No STEMI, changed from previous.
--- NOTE | 2023-10-26 19:45 | DI.RAD_ITS ---
Exam(s) XR CHEST 2V PA LATERAL EXAM: XR CHEST 2V PA LATERAL CLINICAL HISTORY: chest pain TECHNIQUE: 2D digital imaging was performed of the chest. Images were obtained. PA and lateral v iews were obtained. COMPARISON: No exams were available for comparison FINDINGS: MEDIASTINUM: Normal. HEART: Normal. PULMONARY VASCULATURE: Normal. LUNGS: Clear. PLEURAL SPACE: No pleural effusion or pneumothorax. BONE:Within normal limits for the patient's age. OTHER FINDINGS:Normal. IMPRESSION: No acute pulmonary findings. DATA REPOSITORY: RADIATION DOSE DELIVERED:
--- NOTE | 2023-10-26 19:48 | ED.GENADUL_ITS ---
Discharge Plan Disposition Patient Disposition: Admit to [facility] Condition: Fair Discharge Details Clinical Impression: Alcohol dependence, Pancreatic mass, Opioid dependence on agonist therapy, Acute hypokalemia, Hypomagnesemia, Hypocalcemia Primary Care Provider: Unknown,Unknown ED Provider: Larry Alcantara Home Meds and New Rx's Prescriptions: No Action trazodone 50 mg tablet 50 mg PO HS Patient Comments: take 1 tablet by mouth at bedtime trazodone 100 mg Tablet 50 mg PO HS Qty: 0 0RF dextroamphetamine-amphetamine 20 mg tablet 1 tab PO BID buprenorphine-naloxone [Suboxone] 8-2 mg film 2 film sublingual DAILY Patient Comments: PLACE 2 UNDER THE TONGUE FOR 18 DAYS dextroamphetamine-amphetamine 30 mg tablet Patient Comments: TAKE ONE TABLET BY MOUTH EVERY MORNING Discharge Data Discharge Physician: Monse Cano [facility] General Mode of arrival: ambulatory . Date/Time Provider Initiated Documentation: 10/26/23 19:48 . Limitations to Documentation: no limitations . Information obtained by: patient . HPI Narrative: Time seen was 7:39 PM in room 6. The patient is a 43-year-old female who presents with 1 week history of chest tightness, exhaustion, nonproductive cough and substernal squeezing chest pain which is 6 out of 10 in severity. No patient denies any previous episodes and tells me she does not use any cocaine but does smoke 6 cigarettes a day. She also states that she drinks 4-5 shots of alcohol and has had a couple drinks today because she felt anxious associated with her symptoms today. She also endorses anorexia and occasional vomiting but no abdominal pain. She did have abdominal surgery in 2013 at [facility] in [place] and had a cholecystectomy which was open and she tells me the removal of 2 pancreatic cysts. She tells me she did not drink alcohol prior to her surgeries. She does endorse drinking 4-5 shots of alcohol a day. She tells me she has never had withdrawal from alcohol and denies any visual hallucinations or seizures. She does take Adderall 30 mg every morning and 20 mg every afternoon but did not take the afternoon dose today. There is no family history of coronary artery disease and she has no history of thyroid issues. She denies any changes in weight. She denies any fevers chills or changes in her hair or skin. According to her old chart she does have a history of opioid dependence and is on agonist therapy but did not volunteer this. She could also be having withdrawal symptoms Suboxone. Related Data Home Medications Medication Instructions Recorded Confirmed buprenorphine 8 mg-naloxone 2 mg 2 film sublingual DAILY 08/04/22 10/26/23 sublingual film (Suboxone) dextroamphetamine-amphetamine 20 1 tab PO BID 08/04/22 10/26/23 mg tablet trazodone 50 mg tablet 50 mg PO HS 05/31/23 10/26/23 trazodone 100 mg tablet 50 mg (1/2 x 100 mg) PO HS #0 tabs 06/01/23 10/26/23 dextroamphetamine-amphetamine 30 10/26/23 mg tablet Previous Rx's Medication Instructions Recorded trazodone 100 mg tablet 50 mg (1/2 x 100 mg) PO HS #0 tabs 06/01/23 Allergies Allergy/AdvReac Type Severity Reaction Status Date / Time No Known Allergies Allergy Unverified 05/30/23 19:54 General Stated Complaint: Palpitatns ADRIANA: 2 Review of Systems Narrative: see hpi Exam Const General: cooperative, healthy appearing, no acute distress, well developed, well groomed and well hydrated Nutritional Appearance: average body habitus and well nourished Orientation: alert, awake and oriented x3 HENMT Head: normal to inspection, normocephalic and atraumatic Ears: hearing grossly normal bilaterally and external ears normal General nose exam: external nose normal, nares normal and no nasal discharge Face and sinus: normal facial exam, sinuses nontender and face symmetric Mouth: oral mucosae normal, lip normal, tongue normal, oropharynx normal, moist mucous membranes and other (Normal phonation. The patient is handling secretions.) Throat: posterior oropharynx normal and uvula midline Eyes General: appearance normal, both eyes and all related structures Eyelids: eyelids normal Conjunctivae: conjunctivae normal Sclera: sclerae normal Cornea: corneas normal Pupils: PERRL EOM: EOM intact bilaterally and No nystagmus Neck Neck: normal visual inspection, full ROM, no lymphadenopathy, no meningeal signs, trachea midline and supple Lymphatic: no lymphadenopathy noted Chest Chest: normal inspection of the chest Resp Effort & Inspection: normal respiratory effort, able to speak in complete sentences, no audible wheezes, no nasal flaring, no respiratory distress, no retractions, no stridor, not tachypneic, no tracheal deviation, no use of accessory muscles, No prolonged expiratory phase and other (Normal inspiratory to expiratory ratio.) Auscultation: clear to auscultation bilaterally, no rales, no rhonchi, no wheezes and no rubs Tactile Fremitus: tactile fremitus absent Cardio Jugular venous pressure: no JVD Palpation: normal PMI Rhythm: regular rhythm Heart Sounds: S1 normal, S2 normal, no gallops, no murmurs and no rubs GI Palpation: soft, no hepatosplenomegaly, no guarding and nontender Percussion: normal to percussion Auscultation: normal bowel sounds Skin General skin exam: no rashes or lesions noted, turgor normal, no petechiae, no purpura and other (Skin is normal for ethnicity.) Lesions: no lesions Rashes: no rashes Trauma: no lacerations or abrasions Neuro General: patient alert, patient awake, patient oriented x3, moves all extremities, no meningeal signs, no focal motor deficits and CN's II-XI intact bilaterally Cranial Nerves: CN's II-XI intact bilaterally, PERRL, accommodation normal, EOM intact bilaterally, no nystagmus, facial strength normal, tongue midline, hearing normal and no nystagmus Cognition: normal cognition Speech: speech normal Gait: normal gait Motor: muscle tone normal throughout and strength 5/5 throughout Sensory Exam: no sensory deficits noted Extrem General: normal to inspection, full ROM, capillary refill normal, no clubbing, cyanosis or edema and no calf tenderness Psych Appearance: grossly normal Affect: normal affect Attitude: cooperative Thought Process: normal Thought Content: normal Insight: insight good Judgment: judgment good Other: The patient appears to have capacity make medical decisions. Course Reevaluation(s) Time: 22:06 Reevaluation: I have updated the patient's on the lab findings including the elevated D-dimer and that we will be obtaining a CTA of the chest to rule out PE. The patient is having trouble tolerating p.o. potassium. I have gotten her dwain crackers and mary jovani. I have written for repeat basic metabolic panel and magnesium to be drawn with her second troponin. I did discuss the case with Dr. Valencia informally who advised that if the patient be discharged home if her repeat troponin and labs are normal. Time: 23:39 Reevaluation #2: [facility] called and said they were concerned that the patient may have a pancreatic neoplasm. They suggested that the patient get a CT of the abdomen and pelvis with IV contrast. I asked if there was a reason she could not get it yahaira gage she has already had a CT of the chest. They felt that if her renal function was normal she could get the CT of the abdomen and pelvis with IV contrast and I will be signing that out to Dr. Alcantara. I will update the patient as well. Time: 00:04 Additional Reevaluation(s): Tell patient's potassium had decreased. Dr. Alcantara has spoken with Dr. Valencia who has agreed to admit the patient. I have told the patient and she agrees. Vital Signs Vital signs: Vital Signs Temperature 36.9 C 10/26/23 19:17 Pulse 149 H 10/26/23 19:17 Respiratory Rate 20 10/26/23 19:17 Blood Pressure 133/80 10/26/23 19:17 Temperature 36.9 C 10/26/23 19:17 Temperature Source Tympanic 10/26/23 19:17 Pulse 149 H 10/26/23 19:17 Respiratory Rate 20 10/26/23 19:17 Blood Pressure 133/80 10/26/23 19:17 Oxygen Delivery Method Room Air 10/26/23 19:17 Oxygen Flow Rate 0 10/26/23 19:17 Pain Level 0 10/26/23 19:17 Medical Decision Making This is a 43-year-old female who presents with 1 week history of a gradually increasing substernal chest pain and tachycardia. She did not take her p.m. dose of 20 mg of Adderall today and denies any other stimulants. She does drink 4-5 shots of alcohol a day but states that she has never had any withdrawal symptoms such as seizures or visual hallucinations. She presents today with a regular narrow complex tachycardic rhythm which could be an SVT. She denies any changes in weight and has never had any issues with her thyroid in the past but we will check her thyroid as well as electrolytes. She does smoke but denies any cocaine use or family history of coronary artery disease. She is complaining of 2 out of 10 squeezing chest pain her EKG does show narrow complex tachycardia with a normal OR interval and no evidence of ST elevation VT. I was able to decrease her heart rate with carotid massage. It came back up immediately after I stopped. We then tried a ice water facial immersion without any relief so I have written for IV metoprolol. We will check cardiac enzymes. I will check her thyroid her electrolytes and liver function tests. I will write for a banana bag and check a lipase. I will also order a chest x-ray and D-dimer. 9 PM the patient's potassium was critically low. I advised the patient of this finding and she told me she has always had a low potassium. We will repeat it to make sure it is not a lab error but I will also give her p.o. and IV potassium and recheck it in an hour. Medical Records Medical records reviewed: Yes I reviewed the patient's medical records. Imaging Data Radiologic Study: Imaging: X-Ray (Chest x-ray) Radiologist's impression: No acute findings. Lab Data Lab results reviewed: Yes I reviewed the patient's lab results. Lab results narrative: Critically low potassium ECG Data Attestation: I personally reviewed and interpreted this ECG (s) as follows: Prior ECG tracings: available for review Quality:SDOH Health Related Social Needs: No Data to Display PFSH All Active Problems (Updated 10/27/23 @ 00:15 by Phil Valencia) Colitis (Acute) Hypocalcemia (Acute) Hypomagnesemia (Acute) Acute hypokalemia (Acute) Pancreatic mass (Acute) Alcohol dependence (Chronic) Insomnia (Acute) ADHD (Acute) Opioid dependence on agonist therapy (Chronic) Acute on chronic pancreatitis (Acute) Pancreatic pseudocyst (Chronic) Chronic pancreatitis (Acute) Pancreatitis (Acute) Surgical History S/P cholecystectomy and removal of two pancreatic pseudocysts Social History Smoking/Tobacco Use Status: Current every day Tobacco Type: cigarettes Smoking packs per day: 0.5 Smoking cigarettes per day: 10.0 Years smoked: 27 Smoking pack-years: 13.50 Quit status: considering quitting Counseling given: provider counseling and support medications Smoking risk assessment performed?: Yes Alcohol Intake: current Alcohol Intake frequency: a few times a month Alcohol type: beer Counseling provided: provider counseling Drug use: Current Sobriety Substance use type: does not use Housing: apartment Do you feel safe at home: Yes Do you feel safe in your relationship?: Yes Sign Out Sign Out Data: Sign Out Comment: This is a 43-year-old female who is likely an alcoholic who t old me that she drinks 4 shots of alcohol a day and denies any alcohol withdrawal seizures or hallucinations. She came in today complaining of chest discomfort associated with narrow complex tachycardia. Her potassium was critically low at 1.8. We repeated it and have been giving her p.o. and IV potassium. Her initial troponin was negative. A CTA shows no evidence of pulmonary emboli. Her blood work demonstrates what appears to be alcoholic hepatitis. A second potassium was 2.3 at 0 but repeat potassium was 1.7 5. I have encouraged the patient to take p.o. potassium. Patient was also hypomagnesemic and we have given her supplemental magnesium as well as supplemental calcium. I have encouraged her to take her p.o. potassium and she is still getting IV potassium. I have gotten her mary hahn and dwain alvarado as well. Last updated by Monse Cano MD at 10/26/23 23:27
[2023-10-26 20:19] LABS: Abs Immature Grans 0.06 10^3/uL (0.0-0.06); Absolute Basophil Count 0.07 10^3/uL (0.0-0.2); Absolute Eosinophil Count 0.14 10^3/uL (0.0-0.7); Absolute Monocyte Count 1.53 10^3/uL (0.1-0.8); Absolute Neutrophil Count 10.28 10^3/uL (1.2-6.7); Basophils % 0.5; HCT 34.8 % (36.0-46.0); HGB 12.7 g/dL (11.2-15.7); Immature Grans % 0.4; Lymphocytes % 12.5; MCHC 36.5 % (32.0-36.0); MCV 93 fL (80-95); MPV 9.2 fL (8.0-11.0); Monocytes % 11.1; Neutrophils % 74.5; Platelet Count 320 10^3/uL (130-400); RBC 3.73 10^6/uL (3.93-5.22); RDW 12.5 % (11.7-14.6); RDW-SD 43.2 fL
[2023-10-26] MEDS: Aspirin 325 MG TAB PO (20:19)
[2023-10-26] MEDS: Metoprolol 5 MG/5 ML VIAL IVP (20:19)
[2023-10-26] MEDS: Normal Saline 1,000 ML 1000 ML IV (20:19)
[2023-10-26 20:24] LABS: Absolute Lymphocyte Count 1.73 10^3/uL (1.2-3.4)
[2023-10-26 20:30] LABS: Lipase 46 U/L (16-77)
[2023-10-26 20:39] LABS: Diff Comment Diff Reviewed; RBC Morphology Normal
[2023-10-26] MEDS: MAGNESIUM SULFATE 8.12 MEQ, MULTIVITAMIN 10 ML, THIAMINE 100 MG, FOLIC ACID 1 MG in Nor... 168.867 MG IV (20:39)
[2023-10-26 20:46] LABS: ALT 74 U/L (14-59); AST 92 U/L (15-37); Albumin 1.8 g/dL (3.4-5.0); Alkaline Phosphatase 231 U/L (46-116); BUN 6 mg/dL (7-18); Bilirubin, Total 1.8 mg/dL (0.2-1.0); CREATININE 0.9 mg/dL (0.55-1.02); Calcium 7.4 mg/dL (8.5-10.1); Chloride 92 mmol/L (98-107); Estimated GFR 81.86 (mL/min/1.73m2); Glucose 187 mg/dL (74-106); Magnesium 1.4 mg/dL (1.8-2.4); Sodium 138 mmol/L (136-145); TSH (W/Ref FT4) 1.18 uIU/mL (0.36-3.74); Total Protein 5.9 g/dL (6.4-8.2); Troponin I < 50 ng/L (< or =60)
[2023-10-26 20:48] LABS: Potassium 1.8 mmol/L (3.5-5.1)
--- NOTE | 2023-10-26 20:54 | DI.VRAD_ITS ---
PROCEDURE INFORMATION: Exam: XR Chest Exam date and time: 10/26/2023 8:25 PM Age: 43 years old Clinical indication: Other: Chest pain TECHNIQUE: Imaging protocol: Radiologic exam of the chest. Views: 2 views. COMPARISON: CT ABDOMEN PELVIS W 05/30/2023 8:26 PM FINDINGS: Lungs: Unremarkable. No consolidation. Pleural spaces: Unremarkable. No pleural effusion. No pneumothorax. Heart/Mediastinum: Unremarkable. No cardiomegaly. Bones/joints: Unremarkable. IMPRESSION: No acute findings. Dictated and Authenticated by: Jerome Smith MD. Ordering:EDUARDO Shea MD
[2023-10-26 20:57] LABS: D-Dimer 688 ng/mlFEU (<500)
[2023-10-26] MEDS: Potassium Chloride Liquid 20 MEQ PKT 40 MEQ PO ×2 (21:22→23:51)
[2023-10-26] MEDS: POTASSIUM CHLORIDE 10 MEQ/100 ML BAG 100 MEQ IVINF ×3 (21:22→23:52)
[2023-10-26 21:33] LABS: Potassium 2.3 mmol/L (3.5-5.1)
--- NOTE | 2023-10-26 21:45 | DI.CT_ITS ---
Exam(s) CT CHEST PE CTA EXAM: CT CHEST PE CTA CLINICAL HISTORY: chest pain. TECHNIQUE: Imaging Protocol: Axial CT angiography was performed with multi-slice acquisition and mu lti-planar and/or 3D reconstructions. CONTRAST MATERIAL: Intravenous: Omnipaque 350 contrast volume:100 mL COMPARISON: CT CT ABDOMEN PELVIS W from 08/03/[address] ABDOMEN PELVIS W from 05/30/2023 FINDINGS: The examination is limited due to patient motion artifact. Tracheobronchial tree: Patent where visualized. Pulmonary parenchyma: There is a nodular opacity measuring 5 mm in the left upper lobe. (Series 7, i mage 170). There is also ill-defined area of nodularity in the posterior aspect of the right upper l obe measuring 7 mm (series 7, image 240). No architectural distortion. Pulmonary Arteries: No evidence of filling defect to suggest pulmonary emboli. Mediastinum and Nancy: No dominant adenopathy or fluid collection. The esophagus is unremarkable. Visualized thyroid gland: Unremarkable. Pleura: No effusion or pneumothorax. Heart: The heart is not dilated. No coronary artery calcifications are seen. No pericardial effusion. Aorta: Thoracic aorta non-dilated. No evidence of dissection. Upper abdomen: There is fatty infiltration of the liver. There has been interval decrease in size o f the peripancreatic fluid collection since the prior examination. This area is incompletely imaged on the current examination. Soft tissues: Unremarkable. Bones: Within normal limits for the patient's age. IMPRESSION: 1. No evidence of pulmonary embolism, thoracic aortic dissection or aneurysm. 2. Interval decrease in size of the peripancreatic fluid collection since 05/30/2023. Please refer t o the CT scan of the abdomen and pelvis from the same day for complete details. RADIATION DOSE DELIVERED: 256.87mGy.cm Total DLP DATA REPOSITORY: All CT scans at this facility are submitted to the National Radiology Data Registry (NRDR) Dose Index Registry (DIR) with the [employer] (A[employer]). RADIATION OPTIMIZATION: All CT scans at this facility use at least one of these dose optimization te chniques: automated exposure control; mA and/or kV adjustment per patient size (includes targeted exa ms where dose is matched to clinical indication); or iterative reconstruction.
[2023-10-26] MEDS: Omnipaque 350 MG/ML 100 ML BTL IJ (22:22)
[2023-10-26] MEDS: Normal Saline - Diluent 50 ML VIAL IJ (22:23)
[2023-10-26] MEDS: MAGNESIUM SULFATE 2 GM/50 ML BAG IVINF (23:01)
[2023-10-26] MEDS: Calcium Gluconate 4.65 MEQ/10 ML VIAL 4.65 MG IVP (23:01)
[2023-10-26 23:05] LABS: BUN 5 mg/dL (7-18); CREATININE 0.7 mg/dL (0.55-1.02); Calcium 6.5 mg/dL (8.5-10.1); Chloride 95 mmol/L (98-107); Estimated GFR 110.67 (mL/min/1.73m2); Glucose 180 mg/dL (74-106); Magnesium 1.4 mg/dL (1.8-2.4); Sodium 137 mmol/L (136-145)
[2023-10-26 23:07] LABS: Potassium 1.7 mmol/L (3.5-5.1)
--- NOTE | 2023-10-26 23:12 | DI.VRAD_ITS ---
Addendum created by Jerome Smith MD on 10/26/2023 11:40:01 PM EDT: Findings were discussed with RONNIE CODY at 10/26/2023 11:39 PM EDT. Initial report created on 10/26/2023 11:11:44 PM EDT: PROCEDURE INFORMATION: Exam: CTA Chest With Contrast Exam date and time: 10/26/2023 10:27 PM Age: 43 years old Clinical indication: Other: Chest pain TECHNIQUE: Imaging protocol: Computed tomographic angiography of the chest with contrast. Exam focused on the arteries. 3D rendering (Not supervised by radiologist): MIP and/or 3D reconstructed images were created by the technologist. Contrast material: OMNIPAQUE 350; Contrast volume: 100 ml; Contrast route: INTRAVENOUS (IV); COMPARISON: CR XR CHEST 2V PA LATERAL 10/26/2023 8:25 PM FINDINGS: Pulmonary arteries: Normal. No pulmonary emboli. Aorta: Unremarkable. No aortic aneurysm. No aortic dissection. Lungs: Unremarkable. No consolidation. No masses. Pleural spaces: Unremarkable. No pneumothorax. No pleural effusion. Heart: Unremarkable. No cardiomegaly. No pericardial effusion. Lymph nodes: Unremarkable. No enlarged lymph nodes. Liver: Visualized portion of the liver appears diffusely fatty. Pancreas: Visualized portion pancreas appears enlarged with loss of fat plane between the body of the pancreas posterior wall of the stomach (series 4, image 52) raising concern for invasive neoplastic lesion. Stomach and bowel: Wall thickening of the splenic flexure of the colon. Bones/joints: Unremarkable. No acute fracture. Soft tissues: Unremarkable. IMPRESSION: 1. No evidence of pulmonary embolus or other acute abnormality in the chest. 2. Enlarged appearance of the visualized portion of the pancreas with loss of fat plane between the pancreas and posterior wall of the stomach raising concern for invasive neoplastic lesion. Dedicated CT abdomen and pelvis recommended when clinically feasible 3. Fatty liver and wall thickening of the splenic flexure of the colon partially visualized in the upper abdomen. Dictated and Authenticated by: Jerome Smith MD. Ordering:EDUARDO Shea MD
[2023-10-26 23:15] LABS: Troponin I < 50 ng/L (< or =60)
[2023-10-27] VITALS (15 sets, daily range): BP systolic 102–139; BP diastolic 56–92; PULSE 79–106; RESP 15–22; TEMP 36.2–37; O2SAT 94–100
--- NOTE | 2023-10-27 | DI.CT_ITS ---
Exam(s) CT ABDOMEN PELVIS W EXAM: CT ABDOMEN PELVIS W CLINICAL HISTORY: abnormality of pancreas on CTA of chest TECHNIQUE: Imaging Protocol: Axial computed tomography images with coronal and sagittal reformatted images were created and reviewed. CONTRAST MATERIAL: Intravenous: Omnipaque 350 Contrast volume:86 mL Oral: No COMPARISON: CT CT ABDOMEN PELVIS W from 08/03/[address] ABDOMEN PELVIS W from 05/30/[address] CHEST PE CTA from 10/26/2023 FINDINGS: ABDOMEN: Lung Bases: Normal where visualized. Liver: There is diffuse decreased attenuation of the liver consistent with fatty infiltration. No he patic masses are present. No measurable mass. Portal, Superior Mesenteric, and Splenic Veins: Unremarkable. Gallbladder and Biliary Tract: The gallbladder is not visualized. No biliary ductal dilatation. Pancreas: The pancreas is enlarged. There is infiltration of the surrounding soft tissues. The panc reatic head is heterogeneous. There is marked decrease in size of the peripancreatic fluid collectio n which now measures 2.2 cm. It is located between the body of the pancreas and the adjacent stomach (series 5, image 168). There is loss of fat planes surrounding the pancreas particularly between th e duodenum and the stomach. There also collaterals again seen in the upper abdomen suggesting occlus ion of the splenic vein. There is no biliary ductal dilatation. Spleen: Normal. Adrenals: No masses seen. Kidneys: Normal size, contour and axis. No radiodense stones or obstructive uropathy. No masses seen. Abdominal Aorta: Abdominal portion non-dilated. Bowel: No evidence of bowel obstruction. No evidence of appendicitis. The stomach wall appears thic kened proximally. There is also thickening of the wall of the ascending colon and transverse colon. Peritoneal Cavity: No ascites, collection or mesenteric inflammatory response. No free air. Lymph Nodes: Within normal limits. Bones: Within normal limits for the patient's age. No aggressive osseous lesions are seen. Soft Tissues: Unremarkable. PELVIS: Bladder: Symmetric distention, no gross wall thickening. Reproductive Organs: There is an IUD in position. Lymph Nodes: Within normal limits. Bones: Within normal limits for the patient's age. IMPRESSION: 1. Heterogeneous enlargement of the pancreas. With the change in the appearance of the pancreatic he ad and the surrounding soft tissues, while sequelae related to the patient's prior pancreatitis may b e considered, pancreatic neoplasm is of primary concern at this time. 2. Interval decrease in size of the peripancreatic fluid collection which now measures 2.2 cm. 3. Wall thickening seen in the stomach which may reflect an inflammatory/infectious gastritis versus neoplasm. 4. Thickening of the [place] of the ascending colon and transverse colon. This may represent a colitis , neoplasm cannot be entirely excluded. RADIATION DOSE DELIVERED: 746.56mGy.cm Total DLP DATA REPOSITORY: All CT scans at this facility are submitted to the National Radiology Data Registry (NRDR) Dose Index Registry (DIR) with the [employer] (ACR). RADIATION OPTIMIZATION: All CT scans at this facility use at least one of these dose optimization te chniques: automated exposure control; mA and/or kV adjustment per patient size (includes targeted exa ms where dose is matched to clinical indication); or iterative reconstruction.
--- NOTE | 2023-10-27 00:05 | HPE_ITS ---
Date of service: 10/27/23 Time of Service: 00:05 Assessment and Plan Assessment and plan (1) Acute hypokalemia: Start date: 10/27/23 Status: Acute Assessment and plan: This is a 43-year-old lady who has chronic alcohol use and chronic alcohol sequelae with hepatitis and electrolyte abnormalities presented with atypical chest pain and severe hypokalemia which is recalcitrant. She also has metabolic alkalosis and may have some renal potassium wasting with severe chronic hypokalemia. She is not responding well to IV and p.o. potassium supplement and will need high-dose potassium supplementation with close monitoring of labs. Overall her presenting symptoms of atypical chest pain or negative for any acute process with CT of the chest negative for PE but CT of the abdomen pelvis revealing a chronic process in the area of the pancreas and stomach as well as plate fracture of the colon. Her lipase is normal but will be repeated with more typical epigastric discomfort after being hospitalized. She does have a history of recurrent pancreatic pseudocyst with alcoholism though she claims she did not drink alcohol prior to the pseudocyst in 2012 when she had surgery. There is a question of colitis at the splenic flexure of the colon and Zosyn will be started to cover this problem. Her WBC is elevated. She does not have a fever. Blood cultures and urine cultures were not performed urinalysis will be obtained. She does have a positive D-dimer and as needed had a negative CTA of the chest for PE but slightly elevated PT/INR with her alcoholic hepatitis. Patient is a full code. (2) Chronic pancreatitis: Status: Chronic Assessment and plan: Patient is having pain as with her chronic pancreatitis after IV hydration and potassium supplement. Her chest pressure has disappeared. Imaging revealed only chronic changes and she will need to follow-up with GI. Recheck lipase and attempt advancing diet with patient wanting to eat but this fails she will need to be on bowel rest with clinical treatment of acute pancreatitis including IV hydration and pain management. If she worsens, consider transfer to tertiary care center for evaluation of her extensive findings on CT of the abdomen and pelvis. Qualifiers: Pancreatitis type: alcohol induced Qualified Code(s): K86.0 - Alcohol- induced chronic pancreatitis (3) Colitis: Start date: 10/27/23 Status: Acute Assessment and plan: With edema of the splenic flexure of the colon may also be associated with chronic pancreatitis and possible malignancy. Patient will be treated with Zosyn and follow-up clinically. Dedicated CT of the abdomen for possible pancreatic mass with previous pseudocyst and surgery does reveal possible malignancy which will be reviewed with the patient. Lipase was negative for acute pancreatitis though she is having epigastric pain now as with pancreatitis. Patient may have chronic pancreatitis with inability to mount elevated lipase. (4) Alcohol dependence: Status: Chronic Assessment and plan: Alcohol level positive and put on CIWA protocol with Ativan as needed orally. Continue electrolyte repletion. Qualifiers: Complication of substance-induced condition: uncomplicated Substance use status: with intoxication Qualified Code(s): F10.220 - Alcohol dependence with intoxication, uncomplicated (5) Hypomagnesemia: Start date: 10/27/23 Status: Acute Assessment and plan: Continue IV and oral supplementation with follow-up labs. This is associated with chronic hypokalemia. (6) Hypocalcemia: Start date: 10/27/23 Status: Acute Assessment and plan: Check ionized calcium and continue calcium supplementation IV and orally. Follow-up labs daily. (7) Opioid dependence on agonist therapy: Status: Chronic Assessment and plan: Continue Suboxone with confirmation of dosing with BAART before dose in the morning. (8) ADHD: Status: Chronic Assessment and plan: Hold stimulant therapy for now with patient having acute process. Qualifiers: Attention deficit-hyperactivity disorder type: combined inattentive- hyperactive Qualified Code(s): F90.2 - Attention-deficit hyperactivity disorder, combined type History of Present Illness History of Present Illness Chief Complaint: Chest pressure and pain Narrative: This is a 43-year-old female patient who had a 1 week history of decreased appetite with anorexia and decreased intake other than her 4-5 shots of alcohol daily. She did drink the day of presentation that she has not been eating for about 1 week. She presented to the ED with squeezing chest pain 6 out of 10 in severity without cough or fever/chills and no mention of severe dyspnea. She does smoke half a pack of cigarettes daily. She does have a history of pancreatitis with pseudocyst status post surgery twice with abdominal surgery in 2013 at [facility] with open cholecystectomy and removal of 2 pancreatic cyst. She told the ED provider that she did not drink alcohol prior to that surgery. She is on daily Adderall but does not take other street drugs and is on Suboxone for chronic pain though there is a history of opioid abuse. She states she has not used in 10 years. In the ED she was found to be severely hypokalemic with hypomagnesemia and hypocalcemia along with what appears to be alcoholic hepatitis. After admission with IV hydration patient states that she has been having more epigastric pain similar to her previous pancreatitis and has not endorsed squeezing chest pain. A cardiac workup was negative for acute ischemia. She does take Adderall daily as stated. She was admitted for IV hydration and electrolyte repletion with oral potassium and IV potassium being given because of persistent severe hypokalemia below 2. We will trend labs with a lipase being normal though this could be from a burned-out pancreas. Presently she is acting more like acute pancreatitis but is hungry. We will attempt meals and if she does not do well she will need to have bowel rest for acute pancreatitis. CTA of the chest was negative for acute PE or pulmonary process but positive for ambulation around the pancreas and possible colitis. Follow-up CT with contrast of the abdomin and pelvis did reveal possible infiltrative process surrounding the pancreas which could be sequela of previous pancreatitis and surgery with drainage of the pancreatic cyst versus malignancy with infiltration. There is also confirmed possible colitis. She was initiated on Zosyn. The patient does not endorse a chronic history of epigastric pain though she did have decreased appetite for 1 week. It does not appear that she follows up with gastroenterology which may be necessary with her chronic recurring CT of the abdomen. She did have elevation of her WBC with no fever and no blood cultures were performed. She had no urinary symptoms and urine culture was not performed. We do need to obtain a urinalysis. She is a full code. Review of Systems Narrative: 13 point review of systems otherwise unrevealing or stable. The patient denies any significant weight loss. She also denies any nausea vomiting or change in the appearance of her stools. She may have some mild abdominal swelling and CT scan did show diffuse fatty liver. Did not mention ascites. PFSH All Active Problems (Updated 10/27/23 @ 06:58 by Phil Valencia) Colitis (Acute) Hypocalcemia (Acute) Hypomagnesemia (Acute) Acute hypokalemia (Acute) Pancreatic mass (Acute) Alcohol dependence (Chronic) Insomnia (Acute) ADHD (Chronic) Opioid dependence on agonist therapy (Chronic) Acute on chronic pancreatitis (Acute) Pancreatic pseudocyst (Chronic) Chronic pancreatitis (Chronic) Pancreatitis (Acute) Surgical History S/P cholecystectomy and removal of two pancreatic pseudocysts Social History Smoking/Tobacco Use Status: Current every day Tobacco Type: cigarettes Smoking packs per day: 0.5 Smoking cigarettes per day: 10.0 Years smoked: 27 Smoking pack-years: 13.50 Quit status: considering quitting Counseling given: provider counseling and support medications Smoking risk assessment performed?: Yes Alcohol Intake: current Alcohol Intake frequency: a few times a month Alcohol type: beer Counseling provided: provider counseling Drug use: Current Sobriety Substance use type: does not use Housing: apartment Do you feel safe at home: Yes Do you feel safe in your relationship?: Yes Meds Allergies and Home Medications Allergies Allergy/AdvReac Type Severity Reaction Status Date / Time No Known Allergies Allergy Unverified 10/27/23 00:39 Home Medications Medication Instructions Recorded Confirmed Type buprenorphine 8 mg-naloxone 2 mg 2 film sublingual DAILY 08/04/22 10/26/23 History sublingual film (Suboxone) dextroamphetamine-amphetamine 20 1 tab PO 1400 08/04/22 10/27/23 History mg tablet trazodone 50 mg tablet 50 mg PO HS 05/31/23 10/26/23 History trazodone 100 mg tablet 50 mg (1/2 x 100 mg) PO HS #0 tabs 06/01/23 10/26/23 Rx dextroamphetamine-amphetamine 30 30 mg PO DAILY 10/26/23 10/27/23 History mg tablet Exam Narrative Exam Narrative: General: Patient appears older than stated age, flat affect with poor eye contact. Slightly agitated easily irritated. Alert and oriented x 3. She has a moderate distress from her abdominal discomfort but is drinking mary jovani stating that it slightly nielsen with swallowing. She is not nauseated. HEENT: Normocephalic, eyes with pupils equal reactive light symmetrically, extraocular movement intact and sclera slightly icteric. Oropharynx with moist mucosa and poor mentation with carious and missing teeth. Neck: Supple without JVD. Lungs: Bronchovesicular present diffusely with no focal rales or rhonchi. No expiratory wheeze. Fair aeration. Back: Positive without CVA tenderness. Breast: Exam deferred. Heart: Regular rate rhythm no murmurs or gallops appreciated. Abdomen: Slightly protuberant, soft except in epigastric a slight guarding to palpation but no rebound. No palpable hepatosplenomegaly. Bowel sounds are positive with decrease in all quadrants. Genitalia: Exam deferred. Skin: Ashen color without apparent jaundice, warm and dry. Extremities: Without clubbing, cyanosis or grossly pitting edema. Peripheral pulses intact. Neuro: Cranial nerves II to XII gross intact, no focal motor deficits. No tremor. Psych: Flattened affect with depressed mood. Easily irritated. No abnormal thought processes. Remote memory grossly intact. Results Imaging Imaging Studies: Exam: CTA Chest With Contrast Exam date and time: 10/26/2023 10:27 PM Age: 43 years old Clinical indication: Other: Chest pain COMPARISON: CR XR CHEST 2V PA LATERAL 10/26/2023 8:25 PM FINDINGS: Pulmonary arteries: Normal. No pulmonary emboli. Aorta: Unremarkable. No aortic aneurysm. No aortic dissection. Lungs: Unremarkable. No consolidation. No masses. Pleural spaces: Unremarkable. No pneumothorax. No pleural effusion. Heart: Unremarkable. No cardiomegaly. No pericardial effusion. Lymph nodes: Unremarkable. No enlarged lymph nodes. Liver: Visualized portion of the liver appears diffusely fatty. Pancreas: Visualized portion pancreas appears enlarged with loss of fat plane between the body of the pancreas posterior wall of the stomach (series 4, image 52) raising concern for invasive neoplastic lesion. Stomach and bowel: Wall thickening of the splenic flexure of the colon. Bones/joints: Unremarkable. No acute fracture. Soft tissues: Unremarkable. IMPRESSION: 1. No evidence of pulmonary embolus or other acute abnormality in the chest. 2. Enlarged appearance of the visualized portion of the pancreas with loss of fat plane between the pancreas and posterior wall of the stomach raising concern for invasive neoplastic lesion. Dedicated CT abdomen and pelvis recommended when clinically feasible 3. Fatty liver and wall thickening of the splenic flexure of the colon partially visualized in the upper abdomen. Exam: XR Chest Exam date and time: 10/26/2023 8:25 PM Age: 43 years old Clinical indication: Other: Chest pain TECHNIQUE: Imaging protocol: Radiologic exam of the chest. Views: 2 views. COMPARISON: CT ABDOMEN PELVIS W 05/30/2023 8:26 PM FINDINGS: Lungs: Unremarkable. No consolidation. Pleural spaces: Unremarkable. No pleural effusion. No pneumothorax. Heart/Mediastinum: Unremarkable. No cardiomegaly. Bones/joints: Unremarkable. IMPRESSION: No acute findings. Labs 10/26/23 20:15 10/27/23 04:22 Labs: Laboratory Results - last 24 hr 10/26/23 10/26/23 10/26/23 20:15 21:20 22:50 WBC 13.80 H RBC 3.73 L Hgb 12.7 Hct 34.8 L MCV 93 MCH 34.0 H MCHC 36.5 H RDW 12.5 Plt Count 320 MPV 9.2 Immature Gran % 0.4 Neutrophils % 74.5 Lymphocytes % 12.5 Monocytes % 11.1 Eosinophils % 1.0 Basophils % 0.5 Nucleated RBC % 0.0 Absolute Neutrophils 10.28 H Absolute Lymphocytes 1.73 Absolute Monocytes 1.53 H Absolute Eosinophils 0.14 Absolute Basophils 0.07 RBC Morphology Normal D-Dimer 688 H Sodium 138 137 Potassium 1.8 L* 2.3 L* 1.7 L* Chloride 92 L 95 L Carbon Dioxide 34.0 H 33.0 H Anion Gap 12.0 H 9.0 BUN 6 L 5 L Creatinine 0.9 0.7 Est GFR (CKD-EPI 2020) 81.86 110.67 Glucose 187 H 180 H Calcium 7.4 L 6.5 L Magnesium 1.4 L 1.4 L Total Bilirubin 1.8 H AST 92 H ALT 74 H Alkaline Phosphatase 231 H Troponin I < 50 < 50 Total Protein 5.9 L Albumin 1.8 L Lipase 46 TSH 1.18 Last Vital Signs Temp 36.9 C 10/26/23 19:17 Pulse 101 H 10/26/23 23:51 Resp 16 10/26/23 23:52 BP 109/59 L 10/26/23 23:51 Pulse Ox 100 10/26/23 23:52 Time Spent Time spent with Patient: >75 minutes Time was spent: preparing to see the patient(eg.review tests), obtaining and/or reviewing separately otained hiistory, ordering medications,tests, procedures, referring, communicating with other health resident care aid, indepentently interpreting results, counseling the patient and care coordination
[2023-10-27] MEDS: Omnipaque 350 MG/ML 100 ML BTL IJ (00:20)
[2023-10-27] MEDS: Normal Saline - Diluent 50 ML VIAL IJ (00:21)
[2023-10-27] MEDS: Normal Saline Flush 10 ML SYR IVP ×5 (00:22→21:13)
--- NOTE | 2023-10-27 00:30 | ED.PROG_ITS ---
Date of service: 10/27/23 Time of Service: 00:30 Medical Decision Making Case was discussed together by Dr. Cano and myself at time of signout, the patient's potassium was actually going lower and not appropriately improving. Initially a discussion had been had with the hospitalist for potential disposition from the ER after potassium supplementation but as the patient is not showing improvement I do not feel that this is feasible at this time. Together Dr. Cano and myself did call the hospitalist and spoke with Dr. Valencia. Recommendations at this time are for admission. He agrees. And will place admission orders. Patient is still receiving supplemental potassium. CT of the chest did show concerning/atypical mass in the pancreas. A dedicated CT abdomen's been ordered for further differentiation. Patient will be admitted to the floor. I have extensively reviewed the treatment plan with the patient. I have addressed all patient concerns at this time. I have also discussed the plan with the admitting physician and they agree with the current assessment and plan and have agreed to assume responsibility for the patient. All parties demonstrate verbal understanding and agreement with our assessment and plan at this time. The documentation in this chart was dictated using [employer] dictation software. Please excuse any dictation errors. Quality:[facility] Health Related Social Needs: No Data to Display Sign Out Sign Out Data: Sign Out Comment: This is a 43-year-old female who is likely an alcoholic who told me that she drinks 4 shots of alcohol a day and denies any alcohol withdrawal seizures or hallucinations. She came in today complaining of chest discomfort associated with narrow complex tachycardia. Her potassium was critically low at 1.8. We repeated it and have been giving her p.o. and IV potassium. Her initial troponin was negative. A CTA shows no evidence of pulmonary emboli. Her blood work demonstrates what appears to be alcoholic hepatitis. A second potassium was 2.3 at 0 but repeat potassium was 1.7 5. I have encouraged the patient to take p.o. potassium. Patient was also hypomagnesemic and we have given her supplemental magnesium as well as supplemental calcium. I have encouraged her to take her p.o. potassium and she is still getting IV potassium. I have gotten her mary jovani and dwain crackers as well. Last updated by Monse Cano MD at 10/26/23 23:27 Discharge Plan Disposition Patient Disposition: Admit to [facility] Condition: Fair Discharge Details Clinical Impression: Alcohol dependence, Pancreatic mass, Opioid dependence on agonist therapy, Acute hypokalemia, Hypomagnesemia, Hypocalcemia Primary Care Provider: Unknown,Unknown ED Provider: Larry Alcantara Home Meds and New Rx's Prescriptions: No Action trazodone 50 mg tablet 50 mg PO HS Patient Comments: take 1 tablet by mouth at bedtime trazodone 100 mg Tablet 50 mg PO HS Qty: 0 0RF dextroamphetamine-amphetamine 20 mg tablet 1 tab PO BID buprenorphine-naloxone [Suboxone] 8-2 mg film 2 film sublingual DAILY Patient Comments: PLACE 2 UNDER THE TONGUE FOR 18 DAYS dextroamphetamine-amphetamine 30 mg tablet Patient Comments: TAKE ONE TABLET BY MOUTH EVERY MORNING Discharge Data Discharge Physician: Monse Cano
[2023-10-27 00:54] LABS: *AMPHETAMINES SCREEN URINE Positive (Negative); *BARBITURATES SCREEN URINE Negative (Negative); *BENZODIAZEPINES SCREEN URINE Negative (Negative); Cannabinoids THC Positive (Negative); Cocaine Screen,Urine Negative (Negative); METHADONE URINE SCREEN Negative (Negative); OPIATES URINE SCREEN Negative (Negative); Tricyclic Antidepressants Negative (Negative)
[2023-10-27 00:57] LABS: ALT 60 U/L (14-59); AST 78 U/L (15-37); Albumin 1.5 g/dL (3.4-5.0); Alkaline Phosphatase 194 U/L (46-116); Bilirubin, Direct 0.8 mg/dL (0.0-0.2); Bilirubin, Total 1.5 mg/dL (0.2-1.0); PHOSPHORUS 2.3 mg/dL (2.6-4.7); Total Protein 4.9 g/dL (6.4-8.2)
--- NOTE | 2023-10-27 01:18 | DI.VRAD_ITS ---
PROCEDURE INFORMATION: Exam: CT Abdomen And Pelvis With Contrast Exam date and time: 10/27/2023 12:24 AM Age: 43 years old Clinical indication: Abnormal findings; Abnormal radiologic finding of the abdomen; Radiologic exam and body structure: CT pe; Prior surgery; Surgery date: 6+ months; Surgery type: Cysts removed from gb; Patient HX: Abnormality of pancreas on cta of chest TECHNIQUE: Imaging protocol: Computed tomography of the abdomen and pelvis with contrast. Radiation optimization: All CT scans at this facility use at least one of these dose optimization techniques: automated exposure control; mA and/or kV adjustment per patient size (includes targeted exams where dose is matched to clinical indication); or iterative reconstruction. Contrast material: OMNIPAQUE 350; Contrast volume: 86 ml; Contrast route: INTRAVENOUS (IV); COMPARISON: CT ABDOMEN PELVIS W 05/30/2023 8:26 PM FINDINGS: Liver: Liver is diffusely fatty in appearance. No focal hepatic abnormality. Gallbladder and bile ducts: Gallbladder appears to be surgically absent. No significant biliary ductal dilation. Pancreas: Pancreas is diffusely enlarged. There is loss of fat plane between the pancreatic head and adjacent portion of the duodenum with masslike heterogeneous prominence of the pancreatic head and wall thickening of the adjacent portion of the duodenum. Moderate fatty stranding about the pancreas. 2 cm fluid collection between the tail of the pancreas and stomach (axial images 18-19 and coronal images 38-40). Loss of fat plane between pancreatic tail and posterior wall of the stomach in the same area. Spleen: Normal. No splenomegaly. Adrenal glands: Normal. No mass. Kidneys and ureters: Normal. No hydronephrosis. Stomach and bowel: Diffuse wall thickening of the stomach and 2nd portion duodenum. Diffuse wall thickening colon. No evidence of bowel obstruction. Appendix: No evidence of appendicitis. Intraperitoneal space: Unremarkable. No free air. No significant fluid collection. Vasculature: Unremarkable. No abdominal aortic aneurysm. Lymph nodes: Unremarkable. No enlarged lymph nodes. Urinary bladder: Unremarkable as visualized. Reproductive: Intrauterine device appears to be in good position. Pelvic organs appear unremarkable. Bones/joints: Unremarkable. No acute fracture. Soft tissues: Unremarkable. IMPRESSION: 1. Diffusely enlarged and heterogeneous appearance of the pancreas with surrounding fatty stranding lymphadenopathy. While findings may represent sequela of pancreatitis, loss of fat planes between the pancreas and adjacent structures including duodenum and stomach raises concern for pancreatic malignancy. 2. Small fluid collection and loss of surrounding fat plane between the pancreas and stomach. Differential diagnosis would include infiltrate malignancy, sequela of pancreatitis and/or sequela of prior endoscopic pseudocyst drainage. 3. Diffusely fatty liver. 4. Diffuse wall thickening stomach wall thickening of the 2nd portion duodenum may represent infiltrating neoplasm gastro enteritis 5. Diffuse wall thickening colon raising concern for either active previous colitis. Dictated and Authenticated by: Jerome Smith MD. Ordering:EDUARDO Shea MD
[2023-10-27] MEDS: traZODone 50 MG TAB PO ×2 (01:54→21:14)
[2023-10-27] MEDS: POTASSIUM CHLORIDE 10 MEQ/100 ML BAG 100 MEQ IVINF ×2 (01:58→03:19)
[2023-10-27] MEDS: POTASSIUM CHLORIDE/0.9% NACL 1,000 ML 125 MEQ IV (01:58)
[2023-10-27] MEDS: CALCIUM GLUCONATE in NaCl 1 GM/50 ML BAG IVPB (02:39)
[2023-10-27] MEDS: PIPERACILLIN/TAZO 3.375 GM in Normal Saline 50 ML IVPB ×4 (03:50→21:26)
[2023-10-27 04:44] LABS: Potassium 2.6 mmol/L (3.5-5.1)
[2023-10-27 06:26] LABS: HCT 28.3 % (36.0-46.0); HGB 10.5 g/dL (11.2-15.7); MCH 34.4 pg (27.0-33.0); MCHC 37.1 % (32.0-36.0); MCV 93 fL (80-95); MPV 9.4 fL (8.0-11.0); Platelet Count 211 10^3/uL (130-400); RBC 3.05 10^6/uL (3.93-5.22); RDW 12.7 % (11.7-14.6); RDW-SD 43.1 fL; WBC 8.42 10^3/uL (4.4-10.8)
[2023-10-27 06:34] LABS: INR 1.3 (0.9-1.1); Prothrombin Time 12.4 sec (9.1-11.1)
[2023-10-27 06:39] LABS: BUN 4 mg/dL (7-18); CREATININE 0.7 mg/dL (0.55-1.02); Calcium 6.8 mg/dL (8.5-10.1); Chloride 101 mmol/L (98-107); Estimated GFR 110.67 (mL/min/1.73m2); Glucose 110 mg/dL (74-106); Magnesium 1.9 mg/dL (1.8-2.4); Sodium 141 mmol/L (136-145)
[2023-10-27 06:45] LABS: Potassium 2.3 mmol/L (3.5-5.1)
[2023-10-27] MEDS: Buprenorphine/Naloxone 8 mg/2 mg FILM 2 EACH SL (08:08)
[2023-10-27] MEDS: Calcium Carbonate 1.5 GM TAB 3 GM PO ×2 (08:09→20:02)
[2023-10-27] MEDS: Potassium Chloride 20 MEQ TABCR 40 MEQ PO ×3 (08:09→20:01)
[2023-10-27] MEDS: Pantoprazole 40 MG VIAL IVP (08:10)
[2023-10-27] MEDS: Multivitamin TAB 1 TAB PO (08:10)
[2023-10-27] MEDS: Thiamine 100 MG TAB PO (08:10)
[2023-10-27] MEDS: Folic Acid 1 MG TAB PO (08:10)
[2023-10-27] MEDS: Mylanta Suspension 30 ML CUP PO (08:22)
[2023-10-27] MEDS: Nicotine 21 MG/24 HR PATCH TD (08:22)
[2023-10-27] MEDS: LORazepam 1 MG TAB PO/SL ×3 (08:23→20:02)
[2023-10-27 09:04] LABS: Potassium 2.6 mmol/L (3.5-5.1)
[2023-10-27 09:38] LABS: Lipase 42 U/L (16-77)
[2023-10-27] MEDS: POTASSIUM CHLORIDE 20 MEQ/100 ML BAG 50 MEQ IVINF ×2 (09:59→11:53)
[2023-10-27] MEDS: Enoxaparin 40 MG/0.4 ML SYR SC (10:00)
--- NOTE | 2023-10-27 10:34 | NUR.NOTE ---
Late entry note: This RN went into pts room this morning at 0805 to perform assessment, pt was calm and cooperative scoring a 5 on CIWA. Pts lungs were clear bilat. to auscultation, abdomen was soft and non tender to palpation, pt motioned to her R upper quadrant at the bottom of her ribs and stated it was intermittently uncomfortable and stated I have chronic lower back pain, pt stated her last BM was yesterday and normal to her baseline, brown and soft, formed. Pt denies any skin abrasions/ecchymosis/open wounds, no edema present. Pts pedal and radial pulses easily palpable. Pts skin was warm and moist, pink oral mucosa, white sclera. Pt denies SOB, chest pain, dizziness, or nausea. Pt stated she had urinated and missed the hat in the toilet, a second hat was placed in toilet to prevent a second miss. During medication passing at 0824 pt became anxious and restless, she began dry heaving into trash can, pt CIWA score was 9 at this time, 2mg PO Ativan given at this time with good effect. PRN for acid reflux given at this time. 20 minutes after medication administration pt was resting in bed calmly, CIWA score of 2. At this time, 1045am pt denies pain after a volunteer performed a Reiki treatment for her. Pt denies nausea/anxiety/dizziness/photosensitivity/chest discomfort/restlessness, pt expressed a desire to rest/take a nap. Pt had a few small bites of her breakfast and drank multiple gingerales without GI upset. HELGA GAMING. :
--- NOTE | 2023-10-27 10:47 | PDOC.CMIN ---
Date of service: 10/27/23 Care Management Initial Assmt Initial Assessment REASON FOR HOSPITALIZATION:: Acute hypokalemia, chronic alcoholism with sequela. PREVIOUS FUNCTIONAL STATUS/SOCIAL/FAMILY SUPPORTS:: Dolly lives in [facility] with her fiance and her six year old. CURRENT FUNCTIONAL STATUS:: Dolly was lying in a chair when CM approached. Dolly did not have her eyes open during the interaction and described being anxious not knowing what was going on with her health. She reported she knows she is still admitted due to her potassium levels being too low but reported SENIOR PROCESS ANALYST shared they are getting better so discharge plan may be planned for morning. ADVANCE DIRECTIVES:: None on file with [facility] Has patient been provided with info about the portal/API?: Yes Did the patient sign up for the portal?: No CODE STATUS:: Full Code INSURANCE COVERAGE / FINANCIAL ISSUES:: [employer] [place] CURRENT HOME/COMMUNITY SERVICES/EQUIPMENT:: [facility] PRIMARY CARE PHYSICIAN:: Unknown Unknown POTENTIAL DISCHARGE NEEDS:: PCP F/U (hx of missing F/U) PATIENT/FAMILY EDUCATION NEEDS:: Review discharge instructions, discuss Ask Me Three. ANTICIPATED BARRIERS TO DISCHARGE:: None identified. TRANSPORTATION:: Via private vehicle with RCT or with a friend PLAN:: Dolly will return home when medically cleared. She will transport RCT coordinated with JAERD BHATIA. She will be assigned a PCP via T-Doc on discharge. CM following. [facility] All Active Problems (Updated 10/27/23 @ 06:58 by Phil Valencia) Colitis (Acute) Hypocalcemia (Acute) Hypomagnesemia (Acute) Acute hypokalemia (Acute) Pancreatic mass (Acute) Alcohol dependence (Chronic) Insomnia (Acute) ADHD (Chronic) Opioid dependence on agonist therapy (Chronic) Acute on chronic pancreatitis (Acute) Pancreatic pseudocyst (Chronic) Chronic pancreatitis (Chronic) Pancreatitis (Acute) Surgical History S/P cholecystectomy and removal of two pancreatic pseudocysts Social History Smoking/Tobacco Use Status: Current every day Tobacco Type: cigarettes Smoking packs per day: 0.5 Smoking cigarettes per day: 10.0 Years smoked: 27 Smoking pack-years: 13.50 Quit status: considering quitting Counseling given: provider counseling and support medications Smoking risk assessment performed?: Yes Alcohol Intake: current Alcohol Intake frequency: a few times a month Alcohol type: beer Counseling provided: provider counseling Drug use: Current Sobriety Substance use type: does not use Housing: apartment Do you feel safe at home: Yes Do you feel safe in your relationship?: Yes SDOH(Care Management) Screening Will the Patient Participate in the Screening?: Declined to provide
[2023-10-27] MEDS: Ketorolac 15 MG/ML VIAL IVP ×2 (13:05→21:14)
[2023-10-27 13:14] LABS: Bilirubin Small (Negative); Blood Negative (Negative); Clarity Clear (Clear); Glucose Negative (Negative); Ketones Negative (Negative); Leukocyte Esterase Negative (Negative); Nitrite Positive (Negative); Urobilinogen >=8.0 mg/dL (Up to 0.2)
[2023-10-27 13:20] LABS: WBC 0-2 HPF (0-5)
[2023-10-27 13:21] LABS: Bacteria Rare HPF (Negative); C & S Indicated? No; Casts Negative LPF (Negative); Crystals Negative HPF (Negative); Epithelial Cells Rare HPF (Negative); Mucus Negative (Negative); RBC 0-2 HPF (0-2)
--- NOTE | 2023-10-27 13:51 | NUR.NOTE ---
Pt has been getting up in room I without using call light and leaving pumps unplugged, IV pump beeping d/t infusions being complete. Pt has not used her call light once today so far. Each time in room, discussed how important safety is and she should be calling for assistance. Nursing Note:
[2023-10-27] MEDS: POTASSIUM CHLORIDE/0.9% NACL 1,000 ML 12 MEQ IV (14:32)
[2023-10-27 14:49] LABS: Potassium 3.3 mmol/L (3.5-5.1)
[2023-10-27] MEDS: hydrOXYzine HCL 50 MG TAB PO (14:58)
[2023-10-27 17:48] LABS: Ionized Calcium 0.96 mmol/L (1.14-1.35)
[2023-10-28 02:53] VITALS: BP 125/85; PULSE 90; RESP 16; TEMP 37; O2SAT 97
[2023-10-28] MEDS: PIPERACILLIN/TAZO 3.375 GM in Normal Saline 50 ML IVPB ×2 (04:15→10:57)
[2023-10-28] MEDS: Normal Saline Flush 10 ML SYR IVP ×6 (04:16→10:58)
[2023-10-28] MEDS: LORazepam 1 MG TAB PO/SL (06:47)
[2023-10-28] MEDS: Ketorolac 15 MG/ML VIAL IVP (06:47)
[2023-10-28 06:52] LABS: Abs Immature Grans 0.06 10^3/uL (0.0-0.06); Absolute Basophil Count 0.09 10^3/uL (0.0-0.2); Absolute Eosinophil Count 0.33 10^3/uL (0.0-0.7); Absolute Lymphocyte Count 1.67 10^3/uL (1.2-3.4); Absolute Monocyte Count 0.78 10^3/uL (0.1-0.8); Absolute Neutrophil Count 4.72 10^3/uL (1.2-6.7); Basophils % 1.2; Eosinophils % 4.3; HCT 29.9 % (36.0-46.0); HGB 10.7 g/dL (11.2-15.7); Immature Grans % 0.8; Lymphocytes % 21.8; MCHC 35.8 % (32.0-36.0); MCV 95 fL (80-95); MPV 10.1 fL (8.0-11.0); Monocytes % 10.2; Neutrophils % 61.7; Platelet Count 181 10^3/uL (130-400); RBC 3.15 10^6/uL (3.93-5.22); RDW 12.5 % (11.7-14.6); RDW-SD 43.6 fL; WBC 7.65 10^3/uL (4.4-10.8)
[2023-10-28 07:07] VITALS: BP 119/79; PULSE 94; RESP 15; TEMP 36.8; O2SAT 95
[2023-10-28] MEDS: Pantoprazole 40 MG VIAL IVP (07:41)
[2023-10-28] MEDS: Multivitamin TAB 1 TAB PO (07:45)
[2023-10-28] MEDS: Thiamine 100 MG TAB PO (07:45)
[2023-10-28] MEDS: Potassium Chloride 20 MEQ TABCR 40 MEQ PO ×2 (07:45→13:07)
[2023-10-28] MEDS: Calcium Carbonate 1.5 GM TAB 3 GM PO (07:46)
[2023-10-28] MEDS: Folic Acid 1 MG TAB PO (07:46)
[2023-10-28] MEDS: Buprenorphine/Naloxone 8 mg/2 mg FILM 2 EACH SL (07:46)
[2023-10-28 07:51] LABS: Magnesium 1.6 mg/dL (1.8-2.4)
[2023-10-28 07:52] LABS: Anion Gap 6.4 mmol/L (3-11); BUN 7 mg/dL (7-18); CO2 28.6 mmol/L (21.0-32.0); CREATININE 0.7 mg/dL (0.55-1.02); Calcium 7.2 mg/dL (8.5-10.1); Chloride 107 mmol/L (98-107); Estimated GFR 110.67 (mL/min/1.73m2); Glucose 121 mg/dL (74-106); Sodium 142 mmol/L (136-145)
[2023-10-28] MEDS: MAGNESIUM SULFATE 2 GM/50 ML BAG IVINF (09:49)
[2023-10-28] MEDS: Enoxaparin 40 MG/0.4 ML SYR SC (09:49)
--- NOTE | 2023-10-28 11:30 | CMDISCH_ITS ---
Date of service: 10/28/23 Time of Service: 11:30 LACE Index Scoring Tool Questions: Length of Stay (in days): 1 Was the patient admitted via the E.D.?: Yes E.D. Visits: 1 Answers: Total Score: 5 Risk of Readmission: Low Risk Care Management Discharge Plan Reason for Hospitalization: Acute hypokalemia, chronic alcoholism with sequela. Discharge Plan: Dolly is discharged home via private vehicle. Pt will follow up with community providers and her discharge plan of care as recommended. Important to follow up appointment with [facility] and [facility]. No new services are ordered prior to discharge. Patient/Family Education Needs: Review discharge instructions, limitations, medications and plan to follow up with community providers. Discuss ask me three and goals of self care. SDOH Health Related Social Needs: No Data to Display
[2023-10-28 11:35] VITALS: BP 121/85; PULSE 93; RESP 15; TEMP 36.7; O2SAT 96
[2023-10-28] MEDS: Amphet Asp/Amphet/D-Amphet 10 MG TAB 30 MG PO (13:07)
--- NOTE | 2023-10-28 13:24 | DSE_ITS ---
Date of service: 10/28/23 Time of Service: 13:00 DS: Diagnosis Discharge Diagnosis (1) Acute hypokalemia: Status: Acute (2) Chronic pancreatitis: Status: Chronic (3) Colitis: Status: Acute (4) Alcohol dependence: Status: Chronic (5) Hypomagnesemia: Status: Acute (6) Hypocalcemia: Status: Acute (7) Opioid dependence on agonist therapy: Status: Chronic (8) ADHD: Status: Chronic Discharge Plan Disposition Patient Disposition: Home Condition: Improving Discharge Details Reason For Visit: Acute hypokalemia, Chronic alcoholism with sequela Admit Date/Time: 10/27/23 00:16 Admit Provider: Phil Valencia Attending Provider: Phil Valencia Primary Care Provider: Unknown,Unknown Hospital Course Hospital Course: This 43-year-old female patient who presented to the [facility] ED on 10/27 with a history of decreased appetite and anorexia for a week, accompanied by decreased intake except for 4-5 shots of alcohol daily. She reported squeezing chest pain without cough or fever/chills, and no severe dyspnea. She smokes half a pack of cigarettes daily and has a history of pancreatitis with pseudocyst, having undergone abdominal surgery in 2012, including open cholecystectomy and removal of 2 pancreatic cysts. She denied alcohol use before the surgery but has a history of opioid abuse, currently managed with Suboxone for chronic pain, with no opioid use in the past 10 years. In the ED, she was found to be severely hypokalemic, hypomagnesemic, and hypocalcemic, consistent with alcoholic hepatitis. After admission, she experienced more epigastric pain resembling previous pancreatitis but denied squeezing chest pain. Cardiac workup ruled out acute ischemia. She was admitted for IV hydration, electrolyte repletion, and oral/IV potassium supplementation due to persistent severe hypokalemia. CT imaging of the chest was negative for acute pulmonary embolism but showed abnormalities around the pancreas and possible colitis. A follow-up CT of the abdomen and pelvis revealed infiltrative changes surrounding the pancreas, suggestive of sequelae from previous pancreatitis and surgery or possibly malignancy. The patient's presenting symptoms, including atypical chest pain, were not indicative of an acute process. Her lipase levels were normal, although further evaluation is warranted if typical epigastric discomfort recurs. There is a suspicion of colitis, and Zosyn was initiated. Although she has chronic epigastric pain, she has not followed up with gastroenterology, which is recommended given her recurrent abdominal CT findings. Blood cultures were not performed, and a urinalysis was not infected. On discharge potassium and magnesium normal values. She may need supplementation at home, will leave this to PCP to assess and treat. Patient encouraged to eat 3 meals with snacks - a day. She experienced worsening burning and dysphagia, prompting the initiation of a proton pump inhibitor (PPI). Long-term, she requires evaluation by gastroenterology for her chronic pancreatitis and possible malignancy. In summary, the patient's management involved addressing electrolyte abnormalities, alcoholic hepatitis, and suspected colitis. Follow-up with gastroenterology is crucial for long-term management, particularly given the possibility of malignancy. A referral has been sent to Dr Antonio's office at [facility] as patient's PCP is also there and would increase compliance. Patient encouraged strongly to stop drinking alcohol and seek counseling. Patient was discharged with prescriptions for lorazepan for anxiety and ketorolac for pain. She was advised to make an appointment with her PCP as soon as she can for any refills and for post hospitalization exam and potential change in medications. we attempted to secure an appointment for her, that office said they would call the patient with appointment date and time. Patient was advised to have her electrolytes checked next week; a requisition (order) was sent to the lab. She should continue her home medications as prescribed by her PCP. Home Meds and New Rx's Prescriptions: New lorazepam 1 mg tablet 1 mg PO TID PRNQty: 15 0RF ketorolac 10 mg tablet 10 mg PO Q6H Qty: 12 0RF Rx Instructions: for back pain No Action trazodone 50 mg tablet 50 mg PO HS Patient Comments: take 1 tablet by mouth at bedtime dextroamphetamine-amphetamine 20 mg tablet 1 tab PO 1400 buprenorphine-naloxone [Suboxone] 8-2 mg film 2 film sublingual DAILY Patient Comments: PLACE 2 UNDER THE TONGUE FOR 18 DAYS dextroamphetamine-amphetamine 30 mg tablet 30 mg PO DAILY Patient Comments: TAKE ONE TABLET BY MOUTH EVERY MORNING Discharge Instructions Instructions: Alcohol Dependence (DC), Lorazepam (By mouth), Ketorolac (By mouth) Additional Instructions: Stop drinking alcohol. Follow up with your primary care provider regarding your electrolytes. Recommend having them checked next week. Be sure to eat 3 meals and snacks every day. Drink plenty of water. Consider seeking counseling for alcohol addiction and possible eating disorder. Follow up with [facility] for evaluation of your pancreas, your CT scan showed some abnormalities that need further investigation. A referral has been faxed. This is very important to assure you are treated appropriately and this doesn't worsen. Take lorazepam for your anxiety attacks, one three times a day as needed; follow up with your PCP. (No refills) Take ketorolac for limb and back pain, one every 6 hours as needed; followup with your PCP. (No refills) Stand Alone Forms: Nursing Discharge Form Referrals: GASTROENTEROLOGY,[facility] [OTHER] - (Follow up from in patient abnormal CT scan of abdomen and pelvis. A soon as available-- Information faxed to the office) Ana María Daily [ NON-[facility] STAFF PHYSICIAN] - (The office will call you to make a follow up apt. ) Activity:: Activity as Tolerated Equipment/Supplies:: No Equipment Needed Diet:: As Tolerated Discharge Orders Discharge Orders: Discharge Order (Routine); Ordered 10/28/23 Ordered By: Melinda Schultz Other Ambulatory Orders: Comprehensive Metabolic Panel (Routine) Timeframe: [address]: [facility] - Location: Laboratory Outpatient - [facility] Ordered By: Melinda Schultz Discharge Data Discharge Date/Time-TO BE ENTERED AT DEPARTURE: 10/28/23 13:59 DS: Summary Time Spent with Patient providing and/or coordinating discharge services: Greater than 30 minutes Status at Discharge Functional status at discharge: independent ambulation Overall status at discharge: patient is back to baseline Mental Status: mental status grossly normal Speech and Movement: speech and movement normal Mood: congruent mood Affect: normal affect Quality:SDOH Health Related Social Needs: No Data to Display Exam Narrative Exam Narrative: General: Alert and oriented x 3. Eating lunch, states it has no taste, but eating it anyway. HEENT: Normocephalic, eyes with pupils equal reactive light symmetrically, extraocular movement intact and sclera anicteric. Oropharynx with moist mucosa and poor dentition Neck: Supple without JVD. Lungs: Bronchovesicular present diffusely with no focal rales or rhonchi. No expiratory wheeze. Fair aeration. Back: Positive without CVA tenderness. Heart: Regular rate rhythm no murmurs or gallops. Abdomen: Soft no pain with palpation, No palpable hepatosplenomegaly. Bowel sounds are positive all quadrants Skin: Dry, pale, warm, no jaundice Extremities: Without clubbing, cyanosis or grossly pitting edema. Peripheral pulses intact. Neuro: Cranial nerves II to XII gross intact, no focal motor deficits. No tremor. Psych: Flattened affect. No abnormal thought processes. Remote memory grossly intact. Const General: cooperative, healthy appearing, no acute distress, well developed, well groomed and well hydrated Nutritional Appearance: average body habitus and well nourished Orientation: alert, awake and oriented x3 HENMT Head: normal to inspection, normocephalic and atraumatic Ears: hearing grossly normal bilaterally and external ears normal General nose exam: external nose normal, nares normal and no nasal discharge Face and sinus: normal facial exam, sinuses nontender and face symmetric Mouth: oral mucosae normal, lip normal, tongue normal, oropharynx normal, moist mucous membranes and other (Normal phonation. The patient is handling secretions.) Throat: posterior oropharynx normal and uvula midline Eyes General: appearance normal, both eyes and all related structures Eyelids: eyelids normal Conjunctivae: conjunctivae normal Sclera: sclerae normal Cornea: corneas normal Pupils: PERRL EOM: EOM intact bilaterally and No nystagmus Neck Neck: normal visual inspection, full ROM, no lymphadenopathy, no meningeal signs, trachea midline and supple Lymphatic: no lymphadenopathy noted Chest Chest: normal inspection of the chest Resp Effort & Inspection: normal respiratory effort, able to speak in complete sentences, no audible wheezes, no nasal flaring, no respiratory distress, no retractions, no stridor, not tachypneic, no tracheal deviation, no use of accessory muscles, No prolonged expiratory phase and other (Normal inspiratory to expiratory ratio.) Auscultation: clear to auscultation bilaterally, no rales, no rhonchi, no wheezes and no rubs Tactile Fremitus: tactile fremitus absent Cardio Jugular venous pressure: no JVD Palpation: normal PMI Rhythm: regular rhythm Heart Sounds: S1 normal, S2 normal, no gallops, no murmurs and no rubs GI Palpation: soft, no hepatosplenomegaly, no guarding and nontender Auscultation: normal bowel sounds Skin General skin exam: no rashes or lesions noted, turgor normal, no petechiae, no purpura and other (Skin is normal for ethnicity.) Lesions: no lesions Rashes: no rashes Trauma: no lacerations or abrasions Neuro General: patient alert, patient awake, patient oriented x3, moves all extremities, no meningeal signs, no focal motor deficits and CN's II-XI intact bilaterally Cranial Nerves: CN's II-XI intact bilaterally, PERRL, accommodation normal, EOM intact bilaterally, no nystagmus, facial strength normal, tongue midline, hearing normal and no nystagmus Cognition: normal cognition Speech: speech normal Gait: normal gait Motor: muscle tone normal throughout and strength 5/5 throughout Sensory Exam: no sensory deficits noted Extrem General: normal to inspection, full ROM, capillary refill normal and no calf tenderness Right upper extremity: hand Details: other (bilaterally swollen, patient states not abnormal for her ) Psych Appearance: grossly normal Mental Status: mental status grossly normal Speech and Movement: speech and movement normal Mood: congruent mood Affect: normal affect Attitude: cooperative Thought Process: normal Thought Content: normal Insight: insight good Judgment: judgment good Other: The patient appears to have capacity make medical decisions. DS: Data Vitals/I&O Vitals and I&O: Vital Signs Temperature 36.7 C 10/28/23 11:35 Temperature Source Tympanic 10/28/23 11:35 Pulse 93 H 10/28/23 11:35 Pulse Rhythm Regular 10/28/23 08:15 Pulse 106 H 10/27/23 00:25 Respiratory Rate 15 10/28/23 11:35 Respiratory Effort Normal, Non-Labored 10/28/23 08:15 Respiratory Depth Normal 10/28/23 08:15 Respiratory Pattern Normal 10/28/23 08:15 Blood Pressure 121/85 10/28/23 11:35 Blood Pressure Mean 73 10/27/23 00:25 Pulse Oximetry 96 10/28/23 11:35 Oxygen Delivery Method Room Air 10/28/23 11:35 Oxygen Flow Rate 0 10/28/23 11:35 Pain Level 0 10/28/23 11:35 Intake & Output 10/27/23 10/28/23 10/28/23 23:59 11:59 23:59 Intake Total 940.8 / 3849.0 100 / 100 Output Total 700 / 1800 550 / 550 Balance 240.8 / 2049.0 -450 / -450 Intake: IV 200.8 / 2809.0 100 / 100 Oral 740 / 1040 Output: Urine 700 / 1800 550 / 550 Other: Urine Color Dark Sally Dark Sally Urine Appearance Clear Clear Urine Odor Strong None Comment pt is voiding independently and denies any complaints Voiding Methods Toilet Toilet Data Completed and Pending Labs on day of discharge: Labs from last 24 hours 10/28/23 10/28/23 10/27/23 07:30 06:25 14:25 WBC 7.65 RBC 3.15 L Hgb 10.7 L Hct 29.9 L MCV 95 MCH 34.0 H MCHC 35.8 RDW 12.5 Plt Count 181 MPV 10.1 Immature Gran % 0.8 Neutrophils % 61.7 Lymphocytes % 21.8 Monocytes % 10.2 Eosinophils % 4.3 Basophils % 1.2 Nucleated RBC % 0.0 Absolute Neutrophils 4.72 Absolute Lymphocytes 1.67 Absolute Monocytes 0.78 Absolute Eosinophils 0.33 Absolute Basophils 0.09 Sodium 142 Cancelled Potassium 4.0 Cancelled 3.3 L Chloride 107 Cancelled Carbon Dioxide 28.6 Cancelled Anion Gap 6.4 Cancelled BUN 7 Cancelled Creatinine 0.7 Cancelled Est GFR (CKD-EPI 2020) 110.67 Cancelled Glucose 121 H Cancelled Calcium 7.2 L Cancelled Ionized Calcium Magnesium 1.6 L Cancelled Ur Random Potassium Miscellaneous Test 10/27/23 10/27/23 10/27/23 04:22 03:02 02:45 WBC RBC Hgb Hct MCV MCH MCHC RDW Plt Count MPV Immature Gran % Neutrophils % Lymphocytes % Monocytes % Eosinophils % Basophils % Nucleated RBC % Absolute Neutrophils Absolute Lymphocytes Absolute Monocytes Absolute Eosinophils Absolute Basophils Sodium Potassium Chloride Carbon Dioxide Anion Gap BUN Creatinine Est GFR (CKD-EPI 2020) Glucose Calcium Ionized Calcium 0.96 L Magnesium Ur Random Potassium Cancelled Miscellaneous Test Pending [facility] All Active Problems (Updated 10/27/23 @ 06:58 by Phil Valencia) Colitis (Acute) Hypocalcemia (Acute) Hypomagnesemia (Acute) Acute hypokalemia (Acute) Pancreatic mass (Acute) Alcohol dependence (Chronic) Insomnia (Acute) ADHD (Chronic) Opioid dependence on agonist therapy (Chronic) Acute on chronic pancreatitis (Acute) Pancreatic pseudocyst (Chronic) Chronic pancreatitis (Chronic) Pancreatitis (Acute) Surgical History S/P cholecystectomy and removal of two pancreatic pseudocysts Social History Smoking/Tobacco Use Status: Current every day Tobacco Type: cigarettes Smoking packs per day: 0.5 Smoking cigarettes per day: 10.0 Years smoked: 27 Smoking pack-years: 13.50 Quit status: considering quitting Counseling given: provider counseling and support medications Smoking risk assessment performed?: Yes Alcohol Intake: current Alcohol Intake frequency: a few times a month Alcohol type: beer Counseling provided: provider counseling Drug use: Current Sobriety Substance use type: does not use Housing: apartment Do you feel safe at home: Yes Do you feel safe in your relationship?: Yes Time Spent with Patient Time Spent with Patient: 45-69 minutes Time was spent: preparing to see the patient(eg.review tests), ordering medications,tests, procedures, referring, communicating with other health director of home care hospice, indepentently interpreting results, counseling the patient and care coordination
[2023-10-28 16:51] LABS: POTASSIUM,URINE RANDOM 3.6 mmol/L
== END 2023-10-28 13:59 | disposition home or self-care (01) | DRG 433 ==
LOC: ER 10-27 00:27 → MS 10-27 01:05
PROVIDERS: Emergency Medicine Emergency Medical Services; Family Medicine; Nurse Practitioner Acute Care; Admitting Provider Family Medicine; Emergency Provider Student in an Organized Health Care Education/Training Program; Visit Provider Family Medicine
DX: K70.10 Alcoholic hepatitis without ascites (principal); E87.3 Alkalosis; K86.0 Alcohol-induced chronic pancreatitis; F11.20 Opioid dependence, uncomplicated; E87.6 Hypokalemia; K52.9 Noninfective gastroenteritis and colitis, unspecified; F10.220 Alcohol dependence with intoxication, uncomplicated; E83.51 Hypocalcemia; E83.42 Hypomagnesemia; F90.2 Attention-deficit hyperactivity disorder, combined type; F17.210 Nicotine dependence, cigarettes, uncomplicated; R79.1 Abnormal coagulation profile; G47.00 Insomnia, unspecified; R07.89 Other chest pain; R13.10 Dysphagia, unspecified; Y90.2 Blood alcohol level of 40-59 mg/100 ml
CPT/HCPCS: 00123; 36415; 71275; 80048; 80053; 80076; 80307; 83690; 85027; 93005; 96365; 96366; 96375; 99285; J1650; 71046; 74177; 80320; 81003; 81015; 82330; 83735; 84100; 84132; 84133; 84443; 84484; 85025; 85379; 85610; 93010; 99223; 99239; J0612; J0613; J1885; J2470; J2543; J3411; J3475; J3480; J3490

== ENCOUNTER 2023-10-29 19:11 | Inpatient (IN) | payer MEDICARE, SELFPAY ==
[2023-10-29] VITALS (32 sets, daily range): BP systolic 121–150; BP diastolic 86–107; PULSE 97–131; RESP 10–30; TEMP 37.2–37.4; O2SAT 95–100
--- NOTE | 2023-10-29 19:15 | DI.RAD_ITS ---
Exam(s) XR CHEST 2V PA LATERAL EXAM: XR CHEST 2V PA LATERAL CLINICAL HISTORY: shortness of breath. TECHNIQUE: 2D digital imaging was performed. COMPARISON: CR,XR XR CHEST 2V PA LATERAL from 10/26/2023 FINDINGS: 2 views: Heart size is normal. The mediastinum is not widened. There is infiltrate in the left lung base left lower lobe just above the hemidiaphragm. Right lung i s clear. There are no pleural effusions. IMPRESSION: Left lung base infiltrate, most probably infectious. DATA REPOSITORY: RADIATION DOSE DELIVERED:
--- NOTE | 2023-10-29 19:15 | RT.EKG_ITS ---
APPROVED REPORT Exam: Resting ECG Reason for Exam: shortness of breath Patient Location: E HR:100 bpm ECG Measurements Heart Rate 100 AXIS MT 122 P 68 QRSd 76 QRS 35 QT 367 T 25 QTc 472 Conclusion Sinus tachycardia...rate> 99 PHysician: no stemi
[2023-10-29 19:53] LABS: Abs Immature Grans 0.07 10^3/uL (0.0-0.06); Absolute Basophil Count 0.07 10^3/uL (0.0-0.2); Absolute Eosinophil Count 0.16 10^3/uL (0.0-0.7); Absolute Lymphocyte Count 1.82 10^3/uL (1.2-3.4); Absolute Monocyte Count 1.11 10^3/uL (0.1-0.8); Absolute Neutrophil Count 8.49 10^3/uL (1.2-6.7); Basophils % 0.6; Eosinophils % 1.4; HCT 32.5 % (36.0-46.0); HGB 11.2 g/dL (11.2-15.7); Immature Grans % 0.6; Lymphocytes % 15.5; MCH 33.6 pg (27.0-33.0); MCHC 34.5 % (32.0-36.0); MCV 98 fL (80-95); MPV 9.8 fL (8.0-11.0); Monocytes % 9.5; Neutrophils % 72.4; Platelet Count 240 10^3/uL (130-400); RBC 3.33 10^6/uL (3.93-5.22); RDW 12.4 % (11.7-14.6); RDW-SD 44.7 fL; WBC 11.72 10^3/uL (4.4-10.8)
[2023-10-29 19:54] LABS: ESR 10 mm/hr (0-20)
[2023-10-29 20:20] LABS: ALT 61 U/L (14-59); AST 74 U/L (15-37); Albumin 1.8 g/dL (3.4-5.0); Alkaline Phosphatase 221 U/L (46-116); Anion Gap 7.5 mmol/L (3-11); BUN 7 mg/dL (7-18); Bilirubin, Total 1.4 mg/dL (0.2-1.0); CO2 27.5 mmol/L (21.0-32.0); CREATININE 0.7 mg/dL (0.55-1.02); Calcium 8.2 mg/dL (8.5-10.1); Chloride 106 mmol/L (98-107); Estimated GFR 110.67 (mL/min/1.73m2); Glucose 88 mg/dL (74-106); Lipase 31 U/L (16-77); Magnesium 1.5 mg/dL (1.8-2.4); Potassium 4.4 mmol/L (3.5-5.1); Sodium 141 mmol/L (136-145); Total Protein 5.7 g/dL (6.4-8.2)
[2023-10-29 20:21] LABS: NT-proBNP 2068 pg/mL (<300); Troponin I < 50 ng/L (< or =60)
[2023-10-29 20:27] LABS: Bilirubin Negative (Negative); Blood Negative (Negative); Clarity Clear (Clear); Glucose Negative (Negative); Ketones Negative (Negative); Leukocyte Esterase Negative (Negative); Nitrite Negative (Negative); pH 8.5 (5-8)
[2023-10-29 20:37] LABS: FREE T4 0.93 ng/dL (0.76-1.46)
--- NOTE | 2023-10-29 20:52 | DI.VRAD_ITS ---
PROCEDURE INFORMATION: Exam: XR Chest Exam date and time: 10/29/2023 8:27 PM Age: 43 years old Clinical indication: Shortness of breath TECHNIQUE: Imaging protocol: Radiologic exam of the chest. Views: 2 views. COMPARISON: CT CHEST PE CTA 10/26/2023 10:27 PM FINDINGS: Lungs: Moderate left basilar consolidation. Right lung appears clear. Lung volumes appear normal. Pleural spaces: Unremarkable. No pleural effusion. No pneumothorax. Heart/Mediastinum: Unremarkable. No cardiomegaly. Bones/joints: Unremarkable. IMPRESSION: Left basilar pneumonia Dictated and Authenticated by: Jerome Smith MD. Ordering:JENNIFER Gomez MD
[2023-10-29] MEDS: Furosemide 20 MG/2 ML VIAL IVP ×2 (21:25→23:27)
[2023-10-29] MEDS: MAGNESIUM SULFATE 2 GM/50 ML BAG IVINF (21:29)
--- NOTE | 2023-10-29 21:49 | HPE_ITS ---
Date of service: 10/29/23 Time of Service: 21:50 Assessment and Plan Assessment and plan (1) Anasarca: Start date: 10/29/23 Status: Acute Assessment and plan: This is a 43-year-old lady who was recently hospitalized for electrolyte abnormalities with fluid resuscitation now presenting with anasarca. She is responding quickly to treatment with albumin infused in the ED and Lasix IV given at 40 mg initially and to be given twice daily. She also appears to have a questionable left lower lobe pneumonia which will be treated. She has not been drinking alcohol recently and her hypokalemia has resolved but her alcoholic hepatitis persists. She continues on Suboxone. She is a full code. (2) Pneumonia of left lower lobe due to infectious organism: Start date: 10/29/23 Status: Acute Assessment and plan: No cough and found on imaging. Will treat with IV cefepime since this may be associate with recent hospitalization but that muscle cannot be initiated. Procalcitonin is low WBC is only slightly high. Follow clinically. (3) Hypoalbuminemia: Status: Chronic Assessment and plan: Status post transfusion with albumin and to follow-up labs trending with patient having chronic malnourishment and alcoholic hepatitis. She was advised to stay off alcohol continue to eat well. (4) Hypomagnesemia: Status: Chronic Assessment and plan: Replete and follow-up labs. Oral supplementation as needed. Stay alcohol would help with better diet. (5) Hypocalcemia: Status: Chronic Assessment and plan: Replete and trend labs. This is a consequence of chronic alcoholism. (6) Alcoholic hepatitis without ascites: Status: Chronic Assessment and plan: Follow-up clinically with patient now off alcohol. This should clear if she remains off alcohol problem. Follow-up hepatitis profile. (7) Pancreatic pseudocyst: Status: Chronic Assessment and plan: Problematic in the past with no evidence of acute pancreatitis. Follow-up clinically off alcohol. (8) Opioid use disorder in remission: Status: Chronic Assessment and plan: Continue Suboxone while hospitalized. Patient should avoid benzodiazepines or other addictive drugs though she is on stimulants for ADHD and has been prescribed lorazepam in the past. History of Present Illness History of Present Illness Chief Complaint: Swelling of lower extremities up to the lower abdomen involving vulva. Narrative: This is a 43-year-old female patient who was recent hospitalized for electrolyte abnormality with chronic alcoholism and has not drunk alcohol since discharge home just recently. At home for 1 day and sleep in her bed only 1 night, she noticed swelling of her lower extremities and progressed to swelling of her lower abdomen just under her umbilicus and having severe swelling of her vulva. She was uncomfortable and reported to the ED for evaluation. She was found to have continued electrolyte abnormalities though her hypokalemia had improved but severe hypoalbuminemia with albumin given in the ED along with Lasix. She did diurese and her edema has improved. She has no respiratory complaints. She is not drinking alcohol since her last hospitalization. She is chronically on Suboxone. She does not have any history of infectious hepatitis. In the ED she was also found to have a possible left lower lobe pneumonia which we treated with IV antibiotics. She is not toxic and would not be treated as a hospital- acquired pneumonia at this time but this should be considered. She has had no fever. She is slightly tachycardic. Did not appear septic and procalcitonin was low. Her BNP is elevated at 2068 with no comparison. Her WBC was slightly elevated but she had no fever as stated. Her calcium and magnesium were low and repleted. I did send a hepatitis screen for completion. She will remain on IV diuretics and antibiotics with follow-up clinically. She is a DNR/DNI. Review of Systems Narrative: 13 point review of systems otherwise unrevealing or stable. PFSH All Active Problems Pneumonia of left lower lobe due to infectious organism (Acute) Opioid use disorder in remission (Chronic) Alcoholic hepatitis without ascites (Chronic) Hypoalbuminemia (Chronic) Anasarca (Acute) Hypocalcemia (Chronic) Hypomagnesemia (Chronic) Acute hypokalemia (Acute) Pancreatic mass (Acute) Insomnia (Acute) Acute on chronic pancreatitis (Acute) Pancreatic pseudocyst (Chronic) Chronic pancreatitis (Chronic) Pancreatitis (Acute) Medical History Colitis Alcohol dependence ADHD Opioid dependence on agonist therapy Surgical History S/P cholecystectomy and removal of two pancreatic pseudocysts Social History Smoking/Tobacco Use Status: Current every day Tobacco Type: cigarettes Smoking packs per day: 0.5 Smoking cigarettes per day: 10.0 Years smoked: 27 Smoking pack-years: 13.50 Quit status: considering quitting Counseling given: provider counseling and support medications Smoking risk assessment performed?: Yes Alcohol Intake: current Alcohol Intake frequency: a few times a month Alcohol type: beer Counseling provided: provider counseling Drug use: Occasionally Substance use type: marijuana Housing: apartment Do you feel safe at home: Yes Do you feel safe in your relationship?: Yes Meds Allergies and Home Medications Allergies Allergy/AdvReac Type Severity Reaction Status Date / Time No Known Allergies Allergy Unverified 10/29/23 19:18 Home Medications Medication Instructions Recorded Confirmed Type buprenorphine 8 mg-naloxone 2 mg 2 film sublingual DAILY 08/04/22 10/29/23 History sublingual film (Suboxone) dextroamphetamine-amphetamine 20 1 tab PO 1400 08/04/22 10/30/23 History mg tablet trazodone 50 mg tablet 50 mg PO HS 05/31/23 10/29/23 History dextroamphetamine-amphetamine 30 30 mg PO DAILY 10/26/23 10/29/23 History mg tablet ketorolac 10 mg tablet 10 mg PO Q6H #12 tabs 10/28/23 10/29/23 Rx lorazepam 1 mg tablet 1 mg PO TID PRN #15 tabs 10/28/23 10/29/23 Rx Exam Narrative Exam Narrative: General: Patient appears older than stated age, flat affect with fair eye contact. Speech is normal and patient is in no acute distress. Alert and oriented x 3. HEENT: Normocephalic, eyes with pupils equal reactive light symmetrically, extraocular movement intact and sclera slightly icteric. Oropharynx with moist mucosa and poor dentition with carious and missing teeth. Neck: Supple without JVD. Lungs: Bronchovesicular present diffusely with no focal rales or rhonchi. Slightly decreased aeration at the bases otherwise fair aeration. No expiratory wheeze. Back: Stooped posture without CVA tenderness. Breast: Exam deferred. Heart: Regular rate rhythm no murmurs or gallops appreciated. Abdomen: Obese contour and soft to palpation with no palpable hepatosplenomegaly. Bowel sounds positive all quadrants. No guarding or rebound. Genitalia: Exam deferred. Skin: Ashen color without apparent jaundice, warm and dry. Extremities: Without clubbing or cyanosis. 2+ pitting edema over legs and nonpitting edema oversized but no edema noted over abdomen with vulva not inspected but patient stated had improved after IV Lasix. Peripheral pulses intact. Neuro: Cranial nerves II to XII gross intact, no focal motor deficits. No tremor. Psych: Flattened affect with depressed mood. Less irritable than when last seen with previous authorization. No abnormal thought processes. Remote and recent memory grossly intact. Results Imaging Imaging Studies: Exam: XR Chest Exam date and time: 10/29/2023 8:27 PM Age: 43 years old Clinical indication: Shortness of breath TECHNIQUE: Imaging protocol: Radiologic exam of the chest. Views: 2 views. COMPARISON: CT CHEST PE CTA 10/26/2023 10:27 PM FINDINGS: Lungs: Moderate left basilar consolidation. Right lung appears clear. Lung volumes appear normal. Pleural spaces: Unremarkable. No pleural effusion. No pneumothorax. Heart/Mediastinum: Unremarkable. No cardiomegaly. Bones/joints: Unremarkable. IMPRESSION: Left basilar pneumonia Labs 10/30/23 05:48 10/30/23 05:48 Labs: Laboratory Results - last 24 hr 10/29/23 10/29/23 19:29 20:20 WBC 11.72 H RBC 3.33 L Hgb 11.2 Hct 32.5 L MCV 98 H MCH 33.6 H MCHC 34.5 RDW 12.4 Plt Count 240 MPV 9.8 Immature Gran % 0.6 Neutrophils % 72.4 Lymphocytes % 15.5 Monocytes % 9.5 Eosinophils % 1.4 Basophils % 0.6 Nucleated RBC % 0.0 Absolute Neutrophils 8.49 H Absolute Lymphocytes 1.82 Absolute Monocytes 1.11 H Absolute Eosinophils 0.16 Absolute Basophils 0.07 ESR 10 Sodium 141 Potassium 4.4 Chloride 106 Carbon Dioxide 27.5 Anion Gap 7.5 BUN 7 Creatinine 0.7 Est GFR (CKD-EPI 2020) 110.67 Glucose 88 Calcium 8.2 L Phosphorus 3.0 Magnesium 1.5 L Total Bilirubin 1.4 H AST 74 H ALT 61 H Alkaline Phosphatase 221 H Troponin I < 50 C-Reactive Protein 0.80 H NT-Pro-B Natriuret Pep 2068 H Total Protein 5.7 L Albumin 1.8 L Lipase 31 TSH 6.30 H Free T4 0.93 Urine Color Yellow Urine Clarity Clear Urine pH 8.5 H Ur Specific [place] 1.020 Urine Protein Negative Urine Ketones Negative Urine Blood Negative Urine Nitrite Negative Urine Bilirubin Negative Urine Urobilinogen 1.0 H Ur Leukocyte Esterase Negative Urine Glucose Negative Last Vital Signs Temp 37.4 C 10/29/23 19:20 Pulse 103 H 10/29/23 20:01 Resp 21 10/29/23 21:10 BP 139/92 H 10/29/23 20:01 Pulse Ox 97 10/29/23 21:10 PAWSS Have you Been Recently Intoxicated or Drunk Within the Last 30 days?: No Have you Ever Experienced Previous Episodes of Alcohol Withdrawal?: No Have you ever Experienced Withdrawal Seizures?: No Have you ever Experienced Delirium Tremens(DT)s?: No Have you ever undergone Alcohol Rehabilitation Treatment (i.e, inpt ot outpatient treatment programs)?: No Have you ever Experienced Blackouts?: No Have you ever Combined Alcohol with other Downers within the last 90 days?: No Result: 0 Time Spent Time spent with Patient: >75 minutes Time was spent: preparing to see the patient(eg.review tests), obtaining and/or reviewing separately otained hiistory, ordering medications,tests, procedures, indepentently interpreting results, counseling the patient and care coordination
[2023-10-29] MEDS: ALBUMIN HUMAN 25 GM/100 ML BTL IVPB (22:10)
--- NOTE | 2023-10-29 22:50 | W.ED.GENAD ---
Discharge Plan Disposition Patient Disposition: Admit to [facility] Condition: Serious Discharge Details Clinical Impression: Alcoholic hepatitis without ascites, Anasarca, Hypoalbuminemia, Hypomagnesemia, Hypocalcemia Primary Care Provider: Unknown,Unknown ED Provider: Patricia Zuniga Home Meds and New Rx's Prescriptions: No Action trazodone 50 mg tablet 50 mg PO HS Patient Comments: take 1 tablet by mouth at bedtime dextroamphetamine-amphetamine 20 mg tablet 1 tab PO 1400 buprenorphine-naloxone [Suboxone] 8-2 mg film 2 film sublingual DAILY Patient Comments: PLACE 2 UNDER THE TONGUE FOR 18 DAYS dextroamphetamine-amphetamine 30 mg tablet 30 mg PO DAILY Patient Comments: TAKE ONE TABLET BY MOUTH EVERY MORNING lorazepam 1 mg tablet 1 mg PO TID PRNQty: 15 0RF ketorolac 10 mg tablet 10 mg PO Q6H Qty: 12 0RF Rx Instructions: for back pain HPI General Date/Time Provider Initiated Documentation: 10/29/23 19:12. HPI Narrative: This is a 43-year-old female presents with edema to bilateral lower extremities with some shortness of breath. Was discharged from the hospital 2 days ago admitted with electrolyte abnormalities. Today she presents that she is having difficulty walking secondary to significant anasarca. States she is also had cough and some shortness of breath. She denies any fever. She states that she drinks alcohol nightly but denies any history of alcohol withdrawal last ring was on the per patient. Denies any illicit drug use. Denies orthopnea. Denies any pain in her chest. Related Data Home Medications Medication Instructions Recorded Confirmed buprenorphine 8 mg-naloxone 2 mg 2 film sublingual DAILY 08/04/22 10/29/23 sublingual film (Suboxone) dextroamphetamine-amphetamine 20 1 tab PO 1400 08/04/22 10/29/23 mg tablet trazodone 50 mg tablet 50 mg PO HS 05/31/23 10/29/23 dextroamphetamine-amphetamine 30 30 mg PO DAILY 10/26/23 10/29/23 mg tablet ketorolac 10 mg tablet 10 mg PO Q6H #12 tabs 10/28/23 10/29/23 lorazepam 1 mg tablet 1 mg PO TID PRN #15 tabs 10/28/23 10/29/23 Previous Rx's Medication Instructions Recorded ketorolac 10 mg tablet 10 mg PO Q6H #12 tabs 10/28/23 lorazepam 1 mg tablet 1 mg PO TID PRN #15 tabs 10/28/23 Allergies Allergy/AdvReac Type Severity Reaction Status Date / Time No Known Allergies Allergy Unverified 10/29/23 19:18 General Stated Complaint: GenMedical ADRIANA: 3 Exam Narrative Exam Narrative: 43-year-old female alert and oriented, no acute distress, pupils equal round reactive to light and accommodation, lungs clear to auscultation without respiratory distress, cardiac tachycardia noted, no murmur or rub, no abdominal tenderness, significant edema noted to labia and pannus, 3+ edema to bilateral lower extremities, tenderness, neurovascularly intact alert and oriented x 4 Course Vital Signs Vital signs: Vital Signs Temperature 37.4 C 10/29/23 19:14 Pulse 121 H 10/29/23 19:14 Respiratory Rate 20 10/29/23 19:14 Blood Pressure 150/106 H 10/29/23 19:14 Pulse Oximetry 98 10/29/23 19:14 Temperature 37.4 C 10/29/23 19:20 Temperature Source Temporal Artery Scan 10/29/23 19:20 Pulse 108 H 10/29/23 22:31 Pulse 124 H 10/29/23 22:40 Respiratory Rate 25 H 10/29/23 22:40 Respiratory Effort Short of Breath 10/29/23 19:49 Respiratory Depth Normal 10/29/23 19:49 Respiratory Pattern Normal 10/29/23 19:49 Blood Pressure 130/91 H 10/29/23 22:31 Blood Pressure Mean 100 10/29/23 22:31 Blood Pressure Position Supine 10/29/23 19:20 Pulse Oximetry 100 10/29/23 22:31 Oxygen Delivery Method Room Air 10/29/23 19:20 Oxygen Flow Rate 0 10/29/23 19:20 Pain Level 7 10/29/23 19:20 Lab/Test Results Lab/Test Results: 10/29/23 22:25 Blood Blood Culture - Pending 10/29/23 21:44 Blood Blood Culture - Pending Laboratory Tests Range/Units 10/29/23 10/29/23 19:29 20:20 WBC (4.4-10.8) 10^3/uL 11.72 H RBC (3.93-5.22) 10^6/uL 3.33 L Hgb (11.2-15.7) g/dL 11.2 Hct (36.0-46.0) % 32.5 L MCV (80-95) fL 98 H MCH (27.0-33.0) pg 33.6 H MCHC (32.0-36.0) % 34.5 RDW (11.7-14.6) % 12.4 Plt Count (130-400) 10^3/uL 240 MPV (8.0-11.0) fL 9.8 Immature Gran % 0.6 Neutrophils % 72.4 Lymphocytes % 15.5 Monocytes % 9.5 Eosinophils % 1.4 Basophils % 0.6 Nucleated RBC % (0.0-0.3) % 0.0 Absolute Neutrophils (1.2-6.7) 10^3/uL 8.49 H Absolute Lymphocytes (1.2-3.4) 10^3/uL 1.82 Absolute Monocytes (0.1-0.8) 10^3/uL 1.11 H Absolute Eosinophils (0.0-0.7) 10^3/uL 0.16 Absolute Basophils (0.0-0.2) 10^3/uL 0.07 ESR (0-20) mm/hr 10 Sodium (136-145) mmol/L 141 Potassium (3.5-5.1) mmol/L 4.4 Chloride (98-107) mmol/L 106 Carbon Dioxide (21.0-32.0) mmol/L 27.5 Anion Gap (3-11) mmol/L 7.5 BUN (7-18) mg/dL 7 Creatinine (0.55-1.02) mg/dL 0.7 Est GFR (CKD-EPI 2020) (mL/min/1.73m2) 110.67 Glucose (74-106) mg/dL 88 Calcium (8.5-10.1) mg/dL 8.2 L Phosphorus (2.6-4.7) mg/dL 3.0 Magnesium (1.8-2.4) mg/dL 1.5 L Total Bilirubin (0.2-1.0) mg/dL 1.4 H AST (15-37) U/L 74 H ALT (14-59) U/L 61 H Alkaline Phosphatase (46-116) U/L 221 H Troponin I (< or =60) ng/L < 50 C-Reactive Protein (<or=0.5) mg/dL 0.80 H NT-Pro-B Natriuret Pep (<300) pg/mL 2068 H Total Protein (6.4-8.2) g/dL 5.7 L Albumin (3.4-5.0) g/dL 1.8 L Lipase (16-77) U/L 31 TSH (0.36-3.74) uIU/mL 6.30 H Free T4 (0.76-1.46) ng/dL 0.93 Urine Color (Yellow) Yellow Urine Clarity (Clear) Clear Urine pH (5-8) 8.5 H Ur Specific [place] (1.005-1.025) 1.020 Urine Protein (Neg-Trace) mg/dL Negative Urine Ketones (Negative) mg/dL Negative Urine Blood (Negative) Negative Urine Nitrite (Negative) Negative Urine Bilirubin (Negative) Negative Urine Urobilinogen (Up to 0.2) mg/dL 1.0 H Ur Leukocyte Esterase (Negative) Negative Urine Glucose (Negative) mg/dL Negative Medical Decision Making 43-year-old female presenting with report of swelling difficulty walking in bilateral lower extremities which started today. This is after recent admission to this facility for marked electrolyte abnormalities, history of alcoholism. Patient has anasarca on clinical exam with 3+ edema below her umbilicus which is generalized in nature, she is neurovascularly intact, lungs are clear to auscultation. On x-ray she has a left lower lobe basilar infiltrate which was not present on prior CT scan. She is tachycardic, she has mild leukocytosis, will order blood cultures and lactate. Will initiate ceftriaxone and doxycycline for antibiotics. Will administer albumin for an albumin level of 1.8 and 20 mg of Lasix and this diuretic na?ve patient. I spent approximately 10 minutes reviewing patient's prior electrolyte abnormalities and CT chest and abdomen and pelvis from prior encounter. Patient is agreeable to admission to the hospital for observation at this time for anasarca in the presence of hypoalbuminemia and pneumonia, meets SIRS criteria for pneumonia but suspect likely to volume overload status. BNP is 2048, no prior to compare no indication for emergent echo at this time. Low suspicion for pulmonary embolism clinically. Case discussed with Dr. Flores who will admit patient to his service, I suspect patient is low risk for alcohol withdrawal, she does not appear to be admitted influence of alcohol at this time Quality:SDOH Health Related Social Needs: No Data to Display PFSH All Active Problems (Updated 10/29/23 @ 23:00 by ELVIRA Hernandez) Pneumonia of left lower lobe due to infectious organism (Acute) Opioid use disorder in remission (Chronic) Alcoholic hepatitis without ascites (Chronic) Hypoalbuminemia (Chronic) Anasarca (Acute) Hypocalcemia (Chronic) Hypomagnesemia (Chronic) Acute hypokalemia (Acute) Pancreatic mass (Acute) Insomnia (Acute) Acute on chronic pancreatitis (Acute) Pancreatic pseudocyst (Chronic) Chronic pancreatitis (Chronic) Pancreatitis (Acute) Medical History Colitis Alcohol dependence ADHD Opioid dependence on agonist therapy Surgical History S/P cholecystectomy and removal of two pancreatic pseudocysts Social History Smoking/Tobacco Use Status: Current every day Tobacco Type: cigarettes Smoking packs per day: 0.5 Smoking cigarettes per day: 10.0 Years smoked: 27 Smoking pack-years: 13.50 Quit status: considering quitting Counseling given: provider counseling and support medications Smoking risk assessment performed?: Yes Alcohol Intake: current Alcohol Intake frequency: a few times a month Alcohol type: beer Counseling provided: provider counseling Drug use: Occasionally Substance use type: marijuana Housing: apartment Do you feel safe at home: Yes Do you feel safe in your relationship?: Yes PAWSS Have you Been Recently Intoxicated or Drunk Within the Last 30 days?: No Have you Ever Experienced Previous Episodes of Alcohol Withdrawal?: No Have you ever Experienced Withdrawal Seizures?: No Have you ever Experienced Delirium Tremens(DT)s?: No Have you ever undergone Alcohol Rehabilitation Treatment (i.e, inpt ot outpatient treatment programs)?: No Have you ever Experienced Blackouts?: No Have you ever Combined Alcohol with other Downers within the last 90 days?: No Result: 0
[2023-10-29 22:53] LABS: Troponin I < 50 ng/L (< or =60)
[2023-10-29] MEDS: LORazepam 1 MG TAB PO (22:55)
[2023-10-29 23:05] LABS: Procalcitonin 0.1 ng/mL
[2023-10-29] MEDS: CEFEPIME 2 GM in Normal Saline 100 ML IVPB (23:08)
[2023-10-29] MEDS: Enoxaparin 40 MG/0.4 ML SYR SC (23:27)
[2023-10-29] MEDS: traZODone 50 MG TAB PO (23:38)
[2023-10-30 04:32] VITALS: BP 107/74; PULSE 98; RESP 15; TEMP 37.1; O2SAT 95
[2023-10-30 06:41] LABS: HCT 28.5 % (36.0-46.0); HGB 10.1 g/dL (11.2-15.7); MCH 34.1 pg (27.0-33.0); MCHC 35.4 % (32.0-36.0); MCV 96 fL (80-95); MPV 10.2 fL (8.0-11.0); Platelet Count 202 10^3/uL (130-400); RBC 2.96 10^6/uL (3.93-5.22); RDW 12.7 % (11.7-14.6); RDW-SD 44.6 fL; WBC 6.99 10^3/uL (4.4-10.8)
[2023-10-30 06:50] LABS: INR 1.2 (0.9-1.1); Prothrombin Time 11.6 sec (9.1-11.1)
[2023-10-30 07:21] LABS: ALT 49 U/L (14-59); AST 54 U/L (15-37); Albumin 1.8 g/dL (3.4-5.0); Alkaline Phosphatase 169 U/L (46-116); Anion Gap 5.2 mmol/L (3-11); BUN 6 mg/dL (7-18); Bilirubin, Total 1.6 mg/dL (0.2-1.0); CO2 29.8 mmol/L (21.0-32.0); CREATININE 0.7 mg/dL (0.55-1.02); Calcium 7.9 mg/dL (8.5-10.1); Chloride 105 mmol/L (98-107); Estimated GFR 110.67 (mL/min/1.73m2); Glucose 95 mg/dL (74-106); Magnesium 1.9 mg/dL (1.8-2.4); Sodium 140 mmol/L (136-145)
[2023-10-30 08:15] VITALS: BP 110/77; PULSE 91; RESP 16; TEMP 36.2; O2SAT 99
--- NOTE | 2023-10-30 09:16 | INITIAL_ITS ---
Date of service: 10/30/23 Care Management Initial Assmt Initial Assessment REASON FOR HOSPITALIZATION:: Anasarca, left lower lobe pneumonia PREVIOUS FUNCTIONAL STATUS/SOCIAL/FAMILY SUPPORTS:: Dolly lives in [facility] with her dakota? and her six year old. She moved to [place] from [place]. CURRENT FUNCTIONAL STATUS:: Dolly was sitting up in bed when meeting with CM. She explained she does not know how 12 hours ago when she discharged she didn't have pneumonia and now readmitting she does. She described she felt ok other than having extreme swelling in her genital area that she reports has subsided some. CM reviewed readmit questions and informed not able to fax her discharge summary to her PCP despite several attempts. Per request, CM emailed summary to Pt to send along. Once reviewed, PCP intends to schedule a f/u appointment. Dolly reports she is to follow up with GI regarding a mass on her pancreas as well and shares that she has a lot of anxiety right now and is receiving medication. CM following. ADVANCE DIRECTIVES:: None on file Has patient been provided with info about the portal/API?: Yes Did the patient sign up for the portal?: No CODE STATUS:: Full Code INSURANCE COVERAGE / FINANCIAL ISSUES:: [employer] CURRENT HOME/COMMUNITY SERVICES/EQUIPMENT:: [employer] PRIMARY CARE PHYSICIAN:: DAVIE Sheffield,VALENTE POTENTIAL DISCHARGE NEEDS:: PCP F/U (hx of missing F/U) PATIENT/FAMILY EDUCATION NEEDS:: Review discharge instructions, discuss Ask Me Three. ANTICIPATED BARRIERS TO DISCHARGE:: F/U appointments TRANSPORTATION:: Via private vehicle by family. PLAN:: Dolly will return home when medically cleared. She will follow up with her PCP plan of care as prescribed. She will follow up with GI. CM following. PFSH All Active Problems (Updated 11/01/23 @ 00:08 by WANDY ANAYA) Pneumonia of left lower lobe due to infectious organism (Acute) Opioid use disorder in remission (Chronic) Alcoholic hepatitis without ascites (Chronic) Hypoalbuminemia (Chronic) Anasarca (Acute) Hypocalcemia (Chronic) Hypomagnesemia (Chronic) Acute hypokalemia (Acute) Pancreatic mass (Acute) Insomnia (Acute) Acute on chronic pancreatitis (Acute) Pancreatic pseudocyst (Chronic) Chronic pancreatitis (Chronic) Pancreatitis (Acute) Medical History Colitis Alcohol dependence ADHD Opioid dependence on agonist therapy Surgical History S/P cholecystectomy and removal of two pancreatic pseudocysts Social History Smoking/Tobacco Use Status: Current every day Tobacco Type: cigarettes Smoking packs per day: 0.5 Smoking cigarettes per day: 10.0 Years smoked: 27 Smoking pack-years: 13.50 Quit status: considering quitting Counseling given: provider counseling and support medications Smoking risk assessment performed?: Yes Alcohol Intake: current Alcohol Intake frequency: a few times a month Alcohol type: beer Counseling provided: provider counseling Drug use: Occasionally Substance use type: marijuana Housing: apartment Do you feel safe at home: Yes Do you feel safe in your relationship?: Yes Readmission Date of First Admission Date of 1st Admission: 10/27/23 Date of this Admission Date of Admission: 10/29/23 This admission was: Through ED Office Visit Since 1st Admission Have you seen your PCP in the office since discharge?: No Date of PCP Appointment: unknown Date of Scheduled Appointment: N/A Describe barriers for scheduling or getting an appointment: PCP reviewing discharge documents before scheduling an appointment. Speicalist Appointments Have you seen any other specialist since your 1st Admission?: No I. Interview patient and/or Family Difficulty reaching your doctor or getting an office appt?: No Have you had trouble purchasing/ or taking medication?: No How do you take your medications and set up your pills?: As prescribed Have you had trouble with getting meals at home?: No Did you feel ready for discharge when you left the last time: Yes What services were received?: No Reason there were no orders at discharge: No services needed Did you call your physician beore you came to the ED?: No Did your physician tell you to come in?: No How do you think you became sick enough to come back?: Swelling If the patient had a VNA ordered Did the patient have a VNA order?: No ED visits How many ED visits in the past 12 months: 4 SDOH(Care Management) Screening Will the Patient Participate in the Screening?: Unable to obtain
[2023-10-30] MEDS: Amphet Asp/Amphet/D-Amphet 10 MG TAB 30 MG PO (09:23)
[2023-10-30] MEDS: Buprenorphine/Naloxone 8 mg/2 mg FILM 2 EACH SL (09:23)
[2023-10-30] MEDS: Furosemide 40 MG/4 ML VIAL IVP ×2 (09:25→16:14)
[2023-10-30] MEDS: Normal Saline Flush 10 ML SYR IVP ×2 (09:25→18:57)
[2023-10-30] MEDS: CEFEPIME 2 GM in Normal Saline 100 ML IVPB ×2 (09:35→16:14)
[2023-10-30] MEDS: Nicotine 21 MG/24 HR PATCH TD (10:51)
[2023-10-30] MEDS: LORazepam 1 MG TAB PO/SL ×3 (11:42→20:52)
[2023-10-30 11:48] VITALS: BP 112/91; PULSE 115; RESP 16; TEMP 36.2; O2SAT 98
--- NOTE | 2023-10-30 12:21 | PGE_ITS ---
Date of Service Date of service: 10/30/23 Time of Service: 12:21 Assessment and Plan Assessment and plan (1) Alcohol dependence: Assessment and plan: EtOH level not checked in ED Patient reports she has not had any alcohol CIWA scale inititated - scored 6 this morning (although not documented) and 2 this afternoon after ativan Qualifiers: Substance use status: with intoxication Complication of substance- induced condition: uncomplicated Qualified Code(s): F10.220 - Alcohol dependence with intoxication, uncomplicated (2) Anasarca: Status: Acute Assessment and plan: Patient was here and discharged 10/27 in the afternoon, after being admitted on 10/26 in the morning for electrolyte abnormalities with fluid resuscitation She returned last avtar with swelling in her hands, feet, coccyx area - she was given albumin and lasix 40 mg in the ED and responded well. She states that she has not been drinking alcohol recently, potassium is 4.0 Weight on admission 68.62 kg; this am 65.77 (3) Pneumonia of left lower lobe due to infectious organism: Status: Acute Assessment and plan: No cough, no trouble breathing, lungs clear, SPO2 98 RA Continue IV cefepime (4) Hypoalbuminemia: Status: Chronic Assessment and plan: Albumin given in ED; today 1.8 (5) Hypomagnesemia: Status: Chronic Assessment and plan: Mag 1.9; trend (6) Hypocalcemia: Status: Chronic (7) Alcoholic hepatitis without ascites: Status: Chronic Assessment and plan: Bili 1.6, AST 54, Alk Phos 169 - trend (8) Pancreatic pseudocyst: Status: Chronic Assessment and plan: Problematic in the past with no evidence of acute pancreatitis (9) Opioid use disorder in remission: Status: Chronic Assessment and plan: Continue Suboxone while hospitalized. Patient takes adderal Patient takes lorazepam (10) ADHD: Qualifiers: Attention deficit-hyperactivity disorder type: combined inattentive- hyperactive Qualified Code(s): F90.2 - Attention-deficit hyperactivity disorder, combined type Subjective Subjective Patient reports: no new complaints, pain is less, tolerating liquids well, tolerating a regular diet, voiding w/o difficulty and afebrile; denies diarrhea, nausea, vomiting or shortness of breath Interval history since last seen: Alert, awake, complaining of swelling and being in the hospital. She has voided ~ 6 litres today and states she is tired of going pee. Exam Const General: cooperative, healthy appearing, no acute distress, well developed, well groomed and well hydrated Nutritional Appearance: average body habitus and well nourished Orientation: alert, awake and oriented x3 [facility] Head: normal to inspection, normocephalic and atraumatic Ears: hearing grossly normal bilaterally and external ears normal General nose exam: external nose normal, nares normal and no nasal discharge Face and sinus: normal facial exam, sinuses nontender and face symmetric Mouth: oral mucosae normal, lip normal, tongue normal, oropharynx normal, moist mucous membranes and other (Normal phonation. The patient is handling secretions.) Throat: posterior oropharynx normal and uvula midline Eyes General: appearance normal, both eyes and all related structures Eyelids: eyelids normal Conjunctivae: conjunctivae normal Sclera: sclerae normal Cornea: corneas normal Pupils: PERRL EOM: EOM intact bilaterally and No nystagmus Neck Neck: normal visual inspection, full ROM, no lymphadenopathy, no meningeal signs, trachea midline and supple Lymphatic: no lymphadenopathy noted Chest Chest: normal inspection of the chest Resp Effort & Inspection: normal respiratory effort, able to speak in complete sentences, no audible wheezes, no nasal flaring, no respiratory distress, no retractions, no stridor, not tachypneic, no tracheal deviation, no use of accessory muscles, No prolonged expiratory phase and other (Normal inspiratory to expiratory ratio.) Auscultation: clear to auscultation bilaterally, no rales, no rhonchi, no wheezes and no rubs Tactile Fremitus: tactile fremitus absent Cardio Jugular venous pressure: no JVD Palpation: normal PMI Rhythm: regular rhythm Heart Sounds: S1 normal, S2 normal, no gallops, no murmurs and no rubs GI Palpation: soft, no hepatosplenomegaly, no guarding and nontender Percussion: normal to percussion Auscultation: normal bowel sounds Skin General skin exam: no rashes or lesions noted, turgor normal, no petechiae, no purpura and other (Skin is normal for ethnicity.) Lesions: no lesions Rashes: no rashes Trauma: no lacerations or abrasions Neuro General: patient alert, patient awake, patient oriented x3, moves all extremities, no meningeal signs, no focal motor deficits and CN's II-XI intact bilaterally Cranial Nerves: CN's II-XI intact bilaterally, PERRL, accommodation normal, EOM intact bilaterally, no nystagmus, facial strength normal, tongue midline, hearing normal and no nystagmus Cognition: normal cognition Speech: speech normal Gait: normal gait Motor: muscle tone normal throughout and strength 5/5 throughout Sensory Exam: no sensory deficits noted Extrem General: full ROM, capillary refill normal, no calf tenderness, edema (hands and feet) Laterality: bilateral and pedal edema Psych Appearance: grossly normal Affect: normal affect Attitude: cooperative Thought Process: normal Thought Content: normal Insight: insight good Judgment: judgment good Objective Last Vital Signs Temp 36.2 C L 10/30/23 11:48 Pulse 115 H 10/30/23 11:48 Resp 16 10/30/23 11:48 BP 112/91 H 10/30/23 11:48 Pulse Ox 98 10/30/23 11:48 Laboratory Results - last 24 hr 10/29/23 10/29/23 10/29/23 19:29 20:20 22:25 WBC 11.72 H RBC 3.33 L Hgb 11.2 Hct 32.5 L MCV 98 H MCH 33.6 H MCHC 34.5 RDW 12.4 Plt Count 240 MPV 9.8 Immature Gran % 0.6 Neutrophils % 72.4 Lymphocytes % 15.5 Monocytes % 9.5 Eosinophils % 1.4 Basophils % 0.6 Nucleated RBC % 0.0 Absolute Neutrophils 8.49 H Absolute Lymphocytes 1.82 Absolute Monocytes 1.11 H Absolute Eosinophils 0.16 Absolute Basophils 0.07 ESR 10 PT INR Sodium 141 Potassium 4.4 Chloride 106 Carbon Dioxide 27.5 Anion Gap 7.5 BUN 7 Creatinine 0.7 Est GFR (CKD-EPI 2020) 110.67 Glucose 88 Calcium 8.2 L Phosphorus 3.0 Magnesium 1.5 L Total Bilirubin 1.4 H AST 74 H ALT 61 H Alkaline Phosphatase 221 H Troponin I < 50 < 50 C-Reactive Protein 0.80 H NT-Pro-B Natriuret Pep 2068 H Total Protein 5.7 L Albumin 1.8 L Lipase 31 Procalcitonin 0.1 TSH 6.30 H Free T4 0.93 Urine Color Yellow Urine Clarity Clear Urine pH 8.5 H Ur Specific [place] 1.020 Urine Protein Negative Urine Ketones Negative Urine Blood Negative Urine Nitrite Negative Urine Bilirubin Negative Urine Urobilinogen 1.0 H Ur Leukocyte Esterase Negative Urine Glucose Negative 10/30/23 05:48 WBC 6.99 RBC 2.96 L Hgb 10.1 L Hct 28.5 L MCV 96 H MCH 34.1 H MCHC 35.4 RDW 12.7 Plt Count 202 MPV 10.2 Immature Gran % Neutrophils % Lymphocytes % Monocytes % Eosinophils % Basophils % Nucleated RBC % Absolute Neutrophils Absolute Lymphocytes Absolute Monocytes Absolute Eosinophils Absolute Basophils ESR PT 11.6 H INR 1.2 H Sodium 140 Potassium 4.0 Chloride 105 Carbon Dioxide 29.8 Anion Gap 5.2 BUN 6 L Creatinine 0.7 Est GFR (CKD-EPI 2020) 110.67 Glucose 95 Calcium 7.9 L Phosphorus Magnesium 1.9 Total Bilirubin 1.6 H AST 54 H ALT 49 Alkaline Phosphatase 169 H Troponin I C-Reactive Protein NT-Pro-B Natriuret Pep Total Protein 5.0 L Albumin 1.8 L Lipase Procalcitonin TSH Free T4 Urine Color Urine Clarity Urine pH Ur Specific [place] Urine Protein Urine Ketones Urine Blood Urine Nitrite Urine Bilirubin Urine Urobilinogen Ur Leukocyte Esterase Urine Glucose PAWSS Have you Been Recently Intoxicated or Drunk Within the Last 30 days?: No Have you Ever Experienced Previous Episodes of Alcohol Withdrawal?: No Have you ever Experienced Withdrawal Seizures?: No Have you ever Experienced Delirium Tremens(DT)s?: No Have you ever undergone Alcohol Rehabilitation Treatment (i.e, inpt ot outpatient treatment programs)?: No Have you ever Experienced Blackouts?: No Have you ever Combined Alcohol with other Downers within the last 90 days?: No Have you ever Combined Alcohol with any other Substance of Abuse during the last 90 days?: No Positive Blood Alcohol level on Presentation? [PCS.BAL]: No Evidence of Increased Autonomic Activity (i.e. HR>120, tremor, sweating, agitation, nausea)?: No Result: 0 Time Spent with Patient Time Spent with Patient: 25-34 minutes Time was spent: preparing to see the patient(eg.review tests), ordering medications,tests, procedures, referring, communicating with other health lawn care technician, indepentently interpreting results, counseling the patient and care coordination
[2023-10-30] MEDS: traMADol 50 MG TAB PO ×2 (12:41→19:01)
[2023-10-30] MEDS: Amphet Asp/Amphet/D-Amphet 10 MG TAB 20 MG PO (14:56)
[2023-10-30 14:58] VITALS: BP 110/90; PULSE 98; RESP 18; TEMP 36.4; O2SAT 98
[2023-10-30 19:45] VITALS: BP 106/80; PULSE 118; RESP 18; TEMP 36.4; O2SAT 97
[2023-10-30] MEDS: traZODone 50 MG TAB PO (20:52)
[2023-10-30] MEDS: Enoxaparin 40 MG/0.4 ML SYR SC (22:32)
[2023-10-30 23:00] VITALS: BP 122/93; PULSE 127; RESP 18; TEMP 35.9; O2SAT 96
[2023-10-31] MEDS: CEFEPIME 2 GM in Normal Saline 100 ML IVPB ×2 (02:30→09:47)
[2023-10-31 06:18] VITALS: BP 105/68; PULSE 76; RESP 18; TEMP 36.3; O2SAT 95
[2023-10-31 07:17] LABS: Abs Immature Grans 0.05 10^3/uL (0.0-0.06); Absolute Basophil Count 0.08 10^3/uL (0.0-0.2); Absolute Eosinophil Count 0.26 10^3/uL (0.0-0.7); Absolute Lymphocyte Count 1.73 10^3/uL (1.2-3.4); Absolute Monocyte Count 0.89 10^3/uL (0.1-0.8); Absolute Neutrophil Count 2.91 10^3/uL (1.2-6.7); Basophils % 1.4; Eosinophils % 4.4; HCT 28.9 % (36.0-46.0); Immature Grans % 0.8; Lymphocytes % 29.2; MCH 33.4 pg (27.0-33.0); MCHC 34.6 % (32.0-36.0); MCV 97 fL (80-95); MPV 10.1 fL (8.0-11.0); Neutrophils % 49.2; Platelet Count 208 10^3/uL (130-400); RBC 2.99 10^6/uL (3.93-5.22); RDW 12.9 % (11.7-14.6); RDW-SD 45.3 fL; WBC 5.92 10^3/uL (4.4-10.8)
[2023-10-31 07:44] LABS: ALT 41 U/L (14-59); AST 43 U/L (15-37); Albumin 1.7 g/dL (3.4-5.0); Alkaline Phosphatase 159 U/L (46-116); Anion Gap 6.8 mmol/L (3-11); BUN 9 mg/dL (7-18); Bilirubin, Total 1.2 mg/dL (0.2-1.0); CO2 30.2 mmol/L (21.0-32.0); CREATININE 0.7 mg/dL (0.55-1.02); Calcium 8.2 mg/dL (8.5-10.1); Chloride 104 mmol/L (98-107); Estimated GFR 110.67 (mL/min/1.73m2); Glucose 100 mg/dL (74-106); Magnesium 1.9 mg/dL (1.8-2.4); Sodium 141 mmol/L (136-145)
[2023-10-31] MEDS: Amphet Asp/Amphet/D-Amphet 10 MG TAB 30 MG PO (09:03)
[2023-10-31] MEDS: Nicotine 21 MG/24 HR PATCH TD (09:03)
[2023-10-31] MEDS: Buprenorphine/Naloxone 8 mg/2 mg FILM 2 EACH SL (09:04)
[2023-10-31] MEDS: traMADol 50 MG TAB PO (09:47)
[2023-10-31] MEDS: Furosemide 40 MG/4 ML VIAL IVP (09:47)
[2023-10-31] MEDS: Normal Saline Flush 10 ML SYR IVP (09:47)
[2023-10-31 09:48] VITALS: BP 113/78; PULSE 87; RESP 18; TEMP 37.2; O2SAT 98
--- NOTE | 2023-10-31 10:15 | W.PM.DS.N ---
Date of service: 10/31/23 Time of Service: 10:16 DS: Diagnosis Discharge Diagnosis (1) Alcohol dependence: (2) Anasarca: Status: Acute (3) Pneumonia of left lower lobe due to infectious organism: Status: Acute (4) Hypoalbuminemia: Status: Chronic (5) Hypomagnesemia: Status: Chronic (6) Hypocalcemia: Status: Chronic (7) Alcoholic hepatitis without ascites: Status: Chronic (8) Pancreatic pseudocyst: Status: Chronic (9) Opioid use disorder in remission: Status: Chronic (10) ADHD: Discharge Plan Disposition Patient Disposition: Home Condition: Improving Discharge Details Reason For Visit: anasarca, Left lower lobe pneumonia, alcoholic... Admit Date/Time: 10/29/23 21:59 Admit Provider: Phil Valencia Attending Provider: Phil Valencia Primary Care Provider: Ana María Daily Hospital Course Hospital Course: This is a 43-year-old history of alcohol abuse disorder with alcoholic hepatitis recently diagnosed questionable pancreatic mass (referred outpatient to GI) who was recently hospitalized for electrolyte abnormalities with fluid resuscitation returned presenting with anasarca. She is responding quickly to treatment with albumin infused in the ED and Lasix IV given at 40 mg initially and to be given twice daily. She also appears to have a questionable left lower lobe pneumonia, no oxygen requirements, will be discharged on augmentin. She has not been drinking alcohol recently (has had no significant withdrawal symptoms) and her hypokalemia has resolved but her alcoholic hepatitis persists. She continues on Suboxone. she responded well to diuresis and has been taking good p.o. She has had no withdrawal symptoms. She is stable for discharge to home. She will be discharged on spironolactone and furosemide and will follow-up closely with her primary care provider outpatient. She will also keep GI outpatient referral to further evaluate her pancreatic mass. Discharge discussed with Dr. Carvajal Home Meds and New Rx's Prescriptions: New amoxicillin-pot clavulanate 875-125 mg tablet 1 tab PO BID Qty: 10 0RF spironolactone 50 mg tablet 50 mg PO DAILY Qty: 30 0RF furosemide 20 mg tablet 20 mg PO DAILY Qty: 30 0RF Continued trazodone 50 mg tablet 50 mg PO HS Patient Comments: take 1 tablet by mouth at bedtime dextroamphetamine-amphetamine 20 mg tablet 1 tab PO 1400 Rx Instructions: 30MG QAM, 20MG @ 2PM buprenorphine-naloxone [Suboxone] 8-2 mg film 2 film sublingual DAILY Patient Comments: PLACE 2 UNDER THE TONGUE FOR 18 DAYS dextroamphetamine-amphetamine 30 mg tablet 30 mg PO DAILY Patient Comments: TAKE ONE TABLET BY MOUTH EVERY MORNING lorazepam 1 mg tablet 1 mg PO TID PRNQty: 15 0RF ketorolac 10 mg tablet 10 mg PO Q6H Qty: 12 0RF Rx Instructions: for back pain Discharge Instructions Instructions: Abuse of Alcohol (DC), Pneumonia (DC) Additional Instructions: Take antibiotics as prescribed. Continue to cough and deep breathe to keep your lungs clear. You have been prescribed 2 diuretics (water pills) to help keep fluid from building up again. You should follow closely with your primary care provider for follow-up labs including electrolytes and kidney function. Also continue with GI referral to further investigate pancreatic abnormalities found on CAT scan. Stand Alone Forms: Nursing Discharge Form Referrals: Ana María Daily [Primary Care Provider] - (Please call Wednesday to make a follow up appointment for 1 week) Activity:: Activity as Tolerated Equipment/Supplies:: No Equipment Needed Diet:: Low Sodium Discharge Orders Discharge Orders: Discharge Order (Routine); Ordered 10/31/23 Ordered By: Tanya Shaw Discharge Data Discharge Date/Time-TO BE ENTERED AT DEPARTURE: 10/31/23 13:18 DS: Summary Time Spent with Patient providing and/or coordinating discharge services: Less than 30 minutes Status at Discharge Functional status at discharge: independent ambulation Overall status at discharge: patient is progressing back to baseline Mental Status: mental status grossly normal Speech and Movement: speech and movement normal Mood: congruent mood Affect: normal affect Quality:SDOH Health Related Social Needs: No Data to Display Exam Narrative Exam Narrative: Chronically ill-appearing female in no acute distress head is atraumatic oral mucosa is moist neck is supple no JVD cardiovascular regular rate and rhythm breath sounds are clear bilaterally diminished in the bases respirations are even and unlabored abdomen is slightly distended generalized tenderness no guarding no rebound her extremities she has peripheral edema bilaterally and hands are discolored/reddened. Psychiatric her mood and affect are appropriate she is cooperative Psych Mental Status: mental status grossly normal Speech and Movement: speech and movement normal Mood: congruent mood Affect: normal affect DS: Data Vitals/I&O Vitals and I&O: Vital Signs Temperature 37.2 C 10/31/23 09:48 Temperature Source Tympanic 10/31/23 09:48 Pulse 87 10/31/23 09:48 Pulse Rhythm Regular 10/31/23 03:07 Pulse 101 H 10/29/23 22:50 Respiratory Rate 18 10/31/23 09:48 Respiratory Effort Normal 10/31/23 03:07 Respiratory Depth Normal 10/31/23 03:07 Respiratory Pattern Normal 10/31/23 03:07 Blood Pressure 113/78 10/31/23 09:48 Blood Pressure Mean 101 10/29/23 22:46 Blood Pressure Position Supine 10/29/23 19:20 Pulse Oximetry 98 10/31/23 09:48 Oxygen Delivery Method Room Air 10/31/23 09:48 Oxygen Flow Rate 0 10/31/23 09:48 Pain Level 7 10/31/23 09:48 Comment HR reported to RN 10/30/23 11:48 Intake & Output 10/30/23 10/30/23 10/31/23 11:59 23:59 11:59 Intake Total 1310 / 2010 700 / 2010 120 / 120 Output Total 4225 / 4825 600 / 4825 Balance -2915 / -2815 100 / -2815 120 / 120 Weight 68.1 kg Intake: IV 210 / 310 100 / 310 120 / 120 Oral 1100 / 1700 600 / 1700 Output: Urine 4225 / 4825 600 / 4825 Other: Urine Color Yellow Yellow Urine Appearance Clear Clear Clear Urine Odor Strong None Comment pt refused contreras insertion due to past trauma pT incontinent on way to commode Voiding Methods Bedside Commode Incontinent Data Completed and Pending Labs on day of discharge: Labs from last 24 hours 10/31/23 06:42 WBC 5.92 RBC 2.99 L Hgb 10.0 L Hct 28.9 L MCV 97 H MCH 33.4 H MCHC 34.6 RDW 12.9 Plt Count 208 MPV 10.1 Immature Gran % 0.8 Neutrophils % 49.2 Lymphocytes % 29.2 Monocytes % 15.0 Eosinophils % 4.4 Basophils % 1.4 Nucleated RBC % 0.0 Absolute Neutrophils 2.91 Absolute Lymphocytes 1.73 Absolute Monocytes 0.89 H Absolute Eosinophils 0.26 Absolute Basophils 0.08 Sodium 141 Potassium 4.0 Chloride 104 Carbon Dioxide 30.2 Anion Gap 6.8 BUN 9 Creatinine 0.7 Est GFR (CKD-EPI 2020) 110.67 Glucose 100 Calcium 8.2 L Magnesium 1.9 Total Bilirubin 1.2 H AST 43 H ALT 41 Alkaline Phosphatase 159 H Total Protein 5.0 L Albumin 1.7 L Preliminary micro results at discharge 10/29/23 22:25 Blood Culture - Preliminary Blood NO GROWTH 24 HOURS 10/29/23 21:44 Blood Culture - Preliminary Blood NO GROWTH 24 HOURS PFSH All Active Problems Pneumonia of left lower lobe due to infectious organism (Acute) Opioid use disorder in remission (Chronic) Alcoholic hepatitis without ascites (Chronic) Hypoalbuminemia (Chronic) Anasarca (Acute) Hypocalcemia (Chronic) Hypomagnesemia (Chronic) Acute hypokalemia (Acute) Pancreatic mass (Acute) Insomnia (Acute) Acute on chronic pancreatitis (Acute) Pancreatic pseudocyst (Chronic) Chronic pancreatitis (Chronic) Pancreatitis (Acute) Medical History Colitis Alcohol dependence ADHD Opioid dependence on agonist therapy Surgical History S/P cholecystectomy and removal of two pancreatic pseudocysts Social History Smoking/Tobacco Use Status: Current every day Tobacco Type: cigarettes Smoking packs per day: 0.5 Smoking cigarettes per day: 10.0 Years smoked: 27 Smoking pack-years: 13.50 Quit status: considering quitting Counseling given: provider counseling and support medications Smoking risk assessment performed?: Yes Alcohol Intake: current Alcohol Intake frequency: a few times a month Alcohol type: beer Counseling provided: provider counseling Drug use: Occasionally Substance use type: marijuana Housing: apartment Do you feel safe at home: Yes Do you feel safe in your relationship?: Yes Time Spent with Patient Time Spent with Patient: 45-69 minutes Time was spent: preparing to see the patient(eg.review tests), obtaining and/or reviewing separately otained hiistory, ordering medications,tests, procedures, indepentently interpreting results and counseling the patient
--- NOTE | 2023-10-31 11:05 | PDOC.CMDIS ---
Date of service: 10/31/23 LACE Index Scoring Tool Questions: Length of Stay (in days): 2 Was the patient admitted via the E.D.?: Yes E.D. Visits: 1 Answers: Total Score: 6 Risk of Readmission: Low Risk Care Management Discharge Plan Reason for Hospitalization: Anasarca, left lower lobe pneumonia Discharge Plan: Dolly will return home when medically cleared. She will follow up with her PCP plan of care as prescribed. She will follow up with GI. Patient/Family Education Needs: Review discharge instructions and limitations, discussion of self care needs including Ask Me Three [facility] Health Related Social Needs: No Data to Display
[2023-10-31] MEDS: Amphet Asp/Amphet/D-Amphet 10 MG TAB 20 MG PO (13:09)
[2023-11-01 10:36] LABS: Hepatitis A Antibody IgM Negative (Negative); Hepatitis B Core Antibody Negative (Negative); Hepatitis B surface Ag Negative (Negative); Hepatitis C Ab w Rflx HCV PCR Reactive (Negative)
[2023-11-03 13:24] LABS: HCV RNA Qualitative Undetected (Undetected)
== END 2023-10-31 13:18 | disposition home or self-care (01) | DRG 194 ==
LOC: ER 23:00 → MS 10-30 16:12
PROVIDERS: Nurse Practitioner Family; Admitting Provider Family Medicine; Emergency Provider Physician Assistant; PCP Registered Nurse Critical Care Medicine; Visit Provider Family Medicine
DX: J18.9 Pneumonia, unspecified organism (principal); E46 Unspecified protein-calorie malnutrition; K86.3 Pseudocyst of pancreas; F11.20 Opioid dependence, uncomplicated; K86.1 Other chronic pancreatitis; E88.09 Other disorders of plasma-protein metabolism, not elsewhere classified; R60.1 Generalized edema; E83.51 Hypocalcemia; E83.42 Hypomagnesemia; K70.10 Alcoholic hepatitis without ascites; F90.2 Attention-deficit hyperactivity disorder, combined type; Z66 Do not resuscitate; G47.00 Insomnia, unspecified; F10.20 Alcohol dependence, uncomplicated; F17.210 Nicotine dependence, cigarettes, uncomplicated
CPT/HCPCS: 00123; 36415; 80053; 83690; 84145; 85027; 85652; 86704; 86709; 86803; 87040; 87340; 87522; 93005; 96365; 96366; 96375; 99285; J1650; 71046; 81003; 83735; 83880; 84100; 84439; 84443; 84484; 85025; 85610; 86140; 93010; 99223; 99232; 99239; J0692; J1940; J1941; J3475; J3490; P9047

== ENCOUNTER 2024-01-19 09:28 | Outpatient (CLI) | payer MEDICARE, SELFPAY ==
[2024-01-19 09:53] LABS: Abs Immature Grans 0.03 10^3/uL (0.0-0.06); Absolute Basophil Count 0.07 10^3/uL (0.0-0.2); Absolute Eosinophil Count 0.11 10^3/uL (0.0-0.7); Absolute Lymphocyte Count 1.29 10^3/uL (1.2-3.4); Absolute Monocyte Count 0.71 10^3/uL (0.1-0.8); Absolute Neutrophil Count 6.17 10^3/uL (1.2-6.7); Basophils % 0.8 %; Eosinophils % 1.3 %; HCT 30.6 % (36.0-46.0); HGB 11.2 g/dL (11.2-15.7); Immature Grans % 0.4 %; Lymphocytes % 15.4 %; MCH 33.6 pg (27.0-33.0); MCHC 36.6 % (32.0-36.0); MCV 92 fL (80-95); Monocytes % 8.5 %; Neutrophils % 73.6 %; Platelet Count 302 10^3/uL (130-400); RBC 3.33 10^6/uL (3.93-5.22); RDW 12.6 % (11.7-14.6); WBC 8.38 10^3/uL (4.4-10.8)
[2024-01-19 09:55] LABS: ESR 1 mm/hr (0-20)
[2024-01-19 10:09] LABS: Hemoglobin A1C 6.2 % (<5.7)
[2024-01-19 10:22] LABS: D-Dimer 1354 ng/mlFEU (<500)
[2024-01-19 10:36] LABS: ALT 58 U/L (14-59); AST 84 U/L (15-37); Albumin 1.5 g/dL (3.4-5.0); Alkaline Phosphatase 207 U/L (46-116); Anion Gap 6.7 mmol/L (3-11); BUN 5 mg/dL (7-18); Bilirubin, Total 1.18 mg/dL (0.2-1.0); CO2 31.3 mmol/L (21.0-32.0); CREATININE 0.6 mg/dL (0.55-1.02); Calcium 7.3 mg/dL (8.5-10.1); Calculated LDL 56 mg/dL (<100); Chloride 106 mmol/L (98-107); Cholesterol 115 mg/dL (<200); Estimated GFR 114.86 (mL/min/1.73m2); Glucose 161 mg/dL (74-106); HDL Cholesterol 48 mg/dL (40-60); Sodium 144 mmol/L (136-145); TSH (W/Ref FT4) 3.22 uIU/mL (0.36-3.74); Total Protein 5.2 g/dL (6.4-8.2); Triglyceride 59 mg/dL (<150); Troponin I < 50 ng/L (< or =60); Vitamin B12 1329 pg/mL (193-986); Vitamin D 25 Total 37.6 ng/mL (30-100)
[2024-01-19 10:48] LABS: Potassium 2.2 mmol/L (3.5-5.1)
[2024-01-19 11:07] LABS: NT-proBNP 245 pg/mL (<300)
[2024-01-19 20:03] LABS: HIV-1/2 Ag & Ab Screen Negative (Negative)
[2024-01-19 20:58] LABS: Hepatitis A Antibody IgM Negative (Negative); Hepatitis B Core Antibody Negative (Negative); Hepatitis B surface Ag Negative (Negative); Hepatitis C Ab w Rflx HCV PCR Reactive (Negative)
[2024-01-20 13:20] LABS: HCV RNA Qualitative Undetected (Undetected)
== END 2024-01-19 09:29 | disposition home or self-care (01) ==
LOC: LBO 09:28
PROVIDERS: PCP Registered Nurse Critical Care Medicine; Visit Provider Nurse Practitioner Family
DX: E03.9 Hypothyroidism, unspecified (principal); Z00.00 Encounter for general adult medical examination without abnormal findings; E55.9 Vitamin D deficiency, unspecified; F11.91 Opioid use, unspecified, in remission; I10 Essential (primary) hypertension; E78.5 Hyperlipidemia, unspecified; R22.43 Localized swelling, mass and lump, lower limb, bilateral
CPT/HCPCS: 36415; 80053; 80061; 82306; 85652; 86704; 86709; 86803; 87340; 87389; 87522; 82607; 83036; 83880; 84443; 84484; 85025; 85379

== ENCOUNTER 2024-01-19 12:05 | Emergency (ER) | payer MEDICARE, SELFPAY ==
[2024-01-19] VITALS (51 sets, daily range): BP systolic 63–146; BP diastolic 46–132; PULSE 81–106; RESP 12–30; TEMP 36.9; O2SAT 84–100
--- NOTE | 2024-01-19 12:00 | RT.EKG_ITS ---
APPROVED REPORT Exam: Resting ECG Reason for Exam: Chest Pain Patient Location: E HR:88 bpm ECG Measurements Heart Rate 88 AXIS AK 131 P 72 QRSd 82 QRS 48 QT 403 T 67 QTc 489 Conclusion Sinus rhythm...normal P axis, V-rate 60- 99 Nonspecific repol abnormality, diffuse leads...ST dep, T flat/neg, ant/lat/inf
--- NOTE | 2024-01-19 12:44 | ED.GENADUL_ITS ---
Discharge Plan Disposition Patient Disposition: Home Condition: Good Discharge Details Clinical Impression: Hypokalemia, Bilateral edema of lower extremity Primary Care Provider: Ana María Daily ED Provider: Ghaad Urena Home Meds and New Rx's Prescriptions: New spironolactone 50 mg tablet 50 mg PO DAILY Qty: 7 0RF potassium chloride 20 mEq tablet extended release 20 meq PO DAILY Qty: 10 0RF Continued trazodone 50 mg tablet 50 mg PO HS Patient Comments: take 1 tablet by mouth at bedtime dextroamphetamine-amphetamine 20 mg tablet 1 tab PO 1400 Rx Instructions: 30MG QAM, 20MG @ 2PM buprenorphine-naloxone [Suboxone] 8-2 mg film 2 film sublingual DAILY Patient Comments: PLACE 2 UNDER THE TONGUE FOR 18 DAYS dextroamphetamine-amphetamine 30 mg tablet 30 mg PO DAILY Patient Comments: TAKE ONE TABLET BY MOUTH EVERY MORNING lorazepam 1 mg tablet 1 mg PO TID PRNQty: 15 0RF ketorolac 10 mg tablet 10 mg PO Q6H Qty: 12 0RF Rx Instructions: for back pain spironolactone 50 mg tablet 50 mg PO DAILY Qty: 30 0RF Discontinued furosemide 20 mg tablet 20 mg PO DAILY Qty: 30 0RF Discharge Instructions Instructions: Hypokalemia, High Potassium Diet Additional Instructions: Your potassium was quite low. This is likely associated with changes in your medications. Please not take the Lasix any longer, transitioning you to spironolactone. This is been sent to your pharmacy. You are given a dose here so will not need another dose until tomorrow. Please continue to encourage hydration. You have received potassium but should take another dose tonight. I have prescribed you 20 mg/day, this will be sent to your pharmacy as well. Take 1 more dose tonight and then another dose in the morning. Please also call your primary care tomorrow as you will need to have your kidney function and your potassium level checked within the next 24 to 48 hours. If you develop chest pain, palpitations, shortness of breath, abdominal upset or other new/worsening symptom please seek care urgently once again. Otherwise, please f ollow-up with primary care soon as possible. Referrals: Georgina Leyva [ NON-[facility] STAFF PHYSICIAN] - [facility] General Date/Time Provider Initiated Documentation: 01/19/24 12:09 . Limitations to Documentation: no limitations . Information obtained by: patient, RN notes reviewed and old records reviewed . History of Present Illness 43 year old F presents to the emergency department with the chief complaint of hypokalemia, LE edema, described as moderate (not as severe as previous visits), Quality is described as other (denies any pain in her leg), and is localized to the left and lower extremity. Patient reports no radiation. Patient started experiencing this day(s) and it has been constant. other things that improve symptom(s), (elevating extremities) Other factors that worsen symptoms (stopped medication (Lasix) and swelling increased) . Patient notes denies confusion, chest pain, cough, diaphoresis, fever/chills, headaches, loss of appetite, nausea/vomiting, rash, shortness of breath, syncope and weakness. Patient did receive the following treatments prior to arrival, none Related Data Home Medications ?Medication ?Instructions ?Recorded ?Confirmed buprenorphine 8 mg-naloxone 2 mg 2 film sublingual DAILY 08/04/22 01/19/24 sublingual film (Suboxone) dextroamphetamine-amphetamine 20 1 tab PO 1400 08/04/22 01/19/24 mg tablet trazodone 50 mg tablet 50 mg PO HS 05/31/23 01/19/24 dextroamphetamine-amphetamine 30 30 mg PO DAILY 10/26/23 01/19/24 mg tablet ketorolac 10 mg tablet 10 mg PO Q6H #12 tabs 10/28/23 01/19/24 lorazepam 1 mg tablet 1 mg PO TID PRN #15 tabs 10/28/23 01/19/24 spironolactone 50 mg tablet 50 mg PO DAILY #30 tabs 10/31/23 01/19/24 potassium chloride 20 mEq 20 meq PO DAILY #10 tabs 01/19/24 tablet,extended release spironolactone 50 mg tablet 50 mg PO DAILY #7 tabs 01/19/24 Previous Rx's ?Medication ?Instructions ?Recorded ketorolac 10 mg tablet 10 mg PO Q6H #12 tabs 10/28/23 lorazepam 1 mg tablet 1 mg PO TID PRN #15 tabs 10/28/23 spironolactone 50 mg tablet 50 mg PO DAILY #30 tabs 10/31/23 potassium chloride 20 mEq 20 meq PO DAILY #10 tabs 01/19/24 tablet,extended release spironolactone 50 mg tablet 50 mg PO DAILY #7 tabs 01/19/24 Allergies Allergy/AdvReac Type Severity Reaction Status Date / Time No Known Allergies Allergy Unverified 10/29/23 19:18 General Stated Complaint: GenMedical ADRIANA: 3 Review of Systems Constitutional Constitutional: Reports as per HPI, Denies chills, Denies fever(s), Denies head ache(s), Denies lethargy and Denies poor appetite ENT Ears, Nose, Mouth, and Throat: Denies dizziness and Denies headache(s) Cardiovascular Cardiovascular: Reports as per HPI, Denies chest pain, Denies edema (localized to LE), Denies claudication, Reports leg edema, Denies dyspnea and Denies dyspnea on exertion Respiratory Respiratory: Reports as per HPI, Denies chest congestion, Denies cough, Denies pain on inspiration, Denies pain with cough, Denies dyspnea and Denies dyspnea on exertion Gastrointestinal Gastrointestinal: Reports as per HPI, Denies abdominal pain, Denies diarrhea, Denies nausea and Denies vomiting Musculoskeletal Musculoskeletal: Reports as per HPI and Denies back pain Integumentary/Breasts Skin/Breast: Reports as per HPI and Denies rash Neurologic Neurologic: Reports as per HPI, Denies dizziness and Denies headache(s) Exam Const General: cooperative, healthy appearing, comfortable, no acute distress and well developed Nutritional Appearance: average body habitus and well nourished Orientation: alert, awake and oriented x3 [facility] Head: normal to inspection Ears: hearing grossly normal bilaterally Mouth: moist mucous membranes Chest Chest: normal inspection of the chest, normal palpation of entire chest wall and no crepitus Resp Effort & Inspection: normal respiratory effort, able to speak in complete sentences and no respiratory distress Auscultation: clear to auscultation bilaterally, no rales, no rhonchi and no wheezes Cardio Rate: regular rate Rhythm: regular rhythm Heart Sounds: S1 normal and S2 normal GI Inspection: normal to inspection, no edema and non-distended Skin General skin exam: no rashes or lesions noted Trauma: no lacerations or abrasions Neuro General: patient alert, patient awake and patient oriented x3 Cognition: normal cognition Speech: speech normal Gait: normal gait Extrem General: normal to inspection, capillary refill normal, no calf tenderness, normal gait and edema Laterality: bilateral (equal bilaterally to the knee, 2+ distal pulses, no calf pain) Course Vital Signs Vital signs: Vital Signs Temperature 36.9 C 01/19/24 12:10 Pulse 95 H 01/19/24 12:10 Respiratory Rate 16 01/19/24 12:10 Blood Pressure 137/96 H 01/19/24 12:10 Temperature 36.9 C 01/19/24 12:10 Pulse 95 H 01/19/24 12:10 Respiratory Rate 16 01/19/24 12:10 Respiratory Effort Normal 01/19/24 12:16 Blood Pressure 137/96 H 01/19/24 12:10 Pain Level 0 01/19/24 12:10 Medical Decision Making Patient is a pleasant 43-year-old female with past medical history significant for colitis, alcohol dependence, ADHD, opioid dependence on agonist therapy, presenting today with chief complaint of bilateral lower extremity edema and hypokalemia. Patient was seen by primary care this morning, labs are drawn prior to refilling her Lasix. However, was noted to be hypokalemic at 2.2 and was recommended to come to the emergency department. Patient is asymptomatic with this. She denies any chest pain, palpitations, shortness of breath, confusion, weakness, muscular issues. She states that she has chronic issues with lower extremity edema that has been resolved since her discharge from here in October. However, ran out of her diuretic and symptoms began to increase. Has noted a steady increase in lower extremity swelling over the past 1 to 2 weeks since stopping the medications. She denies any shortness of breath, chest pain, pleuritic pain, calf pain. On exam, patient appears nontoxic. She is hemodynamically stable. She has normal oxygen saturation. Her lungs are clear in all nunez. Patient has 2+ lower extremity edema to the knee. This does not extend into the abdomen. She has no calf pain. She has 2+ distal pulses. No ascites or edema into upper thigh or abdomen. ECG obtained, flattening of T waves noted, no arrhythmiis, no U waves. Primarily concerned for the hypokalemia being associated with her recent use of known potassium sparing diuretics. Also believe that her increase in her lower extremity edema is likely associated with the cessation of these diuretics. Will give a dose of spironolactone. Also check magnesium, begin replenishing her potassium. Will give 40 p.o. and 20 IV. Will hydrate the patient. Did not see any indication at this time for acute status change for this patient. Her previous lower extremity edema has been attributed to hypoalbuminemia in the setting of alcoholic liver disease. She reports that she has not been drinking as much, has been cutting back and is not drinking every day. She does have a remote history of substance use, I did question if she never been tested for hepatitis as she has chronically elevated LFTs, patient does not believe this has been done in the past. Will send this as well. Reviewe dECG from 2022, appears unchanged, Flattened T waves. Repeat the same after K supplement After a total of 60 mill equivalents of potassium and 1 g of magnesium, will recheck patient's potassium. Potassium was up to 2.9. Certainly not ideal, potassium is elevating. Patient prefers to be discharged home she has a young son at home. Her hepatitis panel is still pending. I am concerned regarding continued patient on spironolactone and potassium, will contact pharmacy to ensure appropriate dosing as well as impress upon the patient to the risks associated with this and the need for prompt follow-up. Called pharmacy regarding giving the patient potassium supplementation in the setting of spironolactone. They advised that transitioning to 20 mEq daily plus the spironolactone of 50 would be appropriate given the clinical context. They also agree with the urgent follow-up with primary care for repeat of the patient's potassium within the next 24 to 48 hours as well as her underlying kidney function. Discussed the plan with the patient. She will begin taking her spironolactone tomorrow morning. Will take another supplement of potassium this evening. Will continue to encourage hydration, elevate her legs. She will call primary care for [place] in the morning to schedule prompt follow-up and discuss need for repeat labs. Strict return precautions were discussed. All of her questions and concerns were addressed and she is in agreement this plan. Quality:SDOH Health Related Social Needs: No Data to Display PFSH All Active Problems (Updated 01/19/24 @ 17:13 by ELVIRA Estrada) Bilateral edema of lower extremity (Acute) Hypokalemia (Acute) Pneumonia of left lower lobe due to infectious organism (Acute) Opioid use disorder in remission (Chronic) Alcoholic hepatitis without ascites (Chronic) Hypoalbuminemia (Chronic) Anasarca (Acute) Hypocalcemia (Chronic) Acute hypokalemia (Acute) Pancreatic mass (Acute) Insomnia (Acute) Acute on chronic pancreatitis (Acute) Pancreatic pseudocyst (Chronic) Chronic pancreatitis (Chronic) Pancreatitis (Acute) Medical History Colitis Alcohol dependence ADHD Opioid dependence on agonist therapy Surgical History S/P cholecystectomy and removal of two pancreatic pseudocysts Social History Smoking/Tobacco Use Status: Current every day Tobacco Type: cigarettes Smoking packs per day: 0.5 Smoking cigarettes per day: 10.0 Years smoked: 27 Smoking pack-years: 13.50 Quit status: considering quitting Counseling given: provider counseling and support medications Smoking risk assessment performed?: Yes Alcohol Intake: current Alcohol Intake frequency: a few times a month Alcohol type: beer Counseling provided: provider counseling Drug use: Occasionally Substance use type: marijuana Housing: apartment Do you feel safe at home: Yes Do you feel safe in your relationship?: Yes
[2024-01-19] MEDS: Potassium Chloride 20 MEQ TABCR 40 MEQ PO (13:11)
[2024-01-19] MEDS: POTASSIUM CHLORIDE 20 MEQ/100 ML BAG 50 MEQ IVINF (13:11)
[2024-01-19] MEDS: Calcium Carbonate *TUMS* 500 MG CHEW 1000 MG PO (13:12)
[2024-01-19] MEDS: Normal Saline 1,000 ML 1000 ML IV (13:12)
[2024-01-19 13:35] LABS: Magnesium 1.3 mg/dL (1.8-2.4)
[2024-01-19] MEDS: Spironolactone 50 MG TAB PO (14:01)
[2024-01-19] MEDS: MAGNESIUM SULFATE 2 GM/50 ML BAG IVINF (14:28)
--- NOTE | 2024-01-19 15:15 | RT.EKG_ITS ---
APPROVED REPORT Exam: Resting ECG Reason for Exam: recheck with potassium Patient Location: E HR:84 bpm ECG Measurements Heart Rate 84 AXIS AK 140 P 78 QRSd 81 QRS 64 QT 438 T 60 QTc 518 Conclusion Sinus rhythm...normal P axis, V-rate 60- 99 Nonspecific repol abnormality, diffuse leads...ST dep, T flat/neg, ant/lat/inf Prolonged QT interval...QTc >510mS
[2024-01-19 16:34] LABS: Potassium 2.9 mmol/L (3.5-5.1)
[2024-01-20 11:07] LABS: HIV-1/2 Ag & Ab Screen Negative (Negative)
[2024-01-20 12:04] LABS: Hepatitis A Antibody IgM Negative (Negative); Hepatitis B Core Antibody Negative (Negative); Hepatitis B surface Ag Negative (Negative); Hepatitis C Ab w Rflx HCV PCR Reactive (Negative)
== END 2024-01-19 17:33 | disposition home or self-care (01) ==
PROVIDERS: Emergency Provider Physician Assistant; PCP Registered Nurse Critical Care Medicine
DX: R60.0 Localized edema (principal); E87.6 Hypokalemia
CPT/HCPCS: 36415; 86704; 86709; 86803; 87340; 87389; 93005; 96361; 96365; 96366; 99284; 83735; 84132; 93010; 99283; J3475; J3480

== ENCOUNTER 2024-01-24 10:51 | Outpatient (CLI) | payer MEDICARE, SELFPAY ==
[2024-01-24 12:14] LABS: COMMENT (LAB VIEW ONLY) 134.57 mg/dL; Microalb ug/mg Crea 45.6 ug/mg Cr
[2024-01-24 12:51] LABS: Potassium 2.6 mmol/L (3.5-5.1)
== END 2024-01-24 10:52 | disposition home or self-care (01) ==
LOC: LBO 10:54
PROVIDERS: PCP Registered Nurse Critical Care Medicine; Visit Provider Nurse Practitioner Family
DX: E56.1 Deficiency of vitamin K (principal); E61.2 Magnesium deficiency
CPT/HCPCS: 36415; 82043; 82570; 84132

== ENCOUNTER 2024-01-26 09:13 | Emergency (ER) | payer MEDICARE, SELFPAY ==
[2024-01-26] VITALS (51 sets, daily range): BP systolic 115–149; BP diastolic 66–124; PULSE 91–117; RESP 13–31; TEMP 36.4; O2SAT 93–100
--- NOTE | 2024-01-26 09:15 | RT.EKG_ITS ---
APPROVED REPORT Exam: Resting ECG Reason for Exam: SOB Patient Location: E HR:110 bpm ECG Measurements Heart Rate 110 AXIS TN 116 P 72 QRSd 76 QRS 46 QT 341 T 34 QTc 461 Conclusion Sinus tachycardia...rate> 99 sinus tach, normal axis, normal intervals, non ischemic
--- NOTE | 2024-01-26 09:24 | ED.GENADUL_ITS ---
Discharge Plan Disposition Patient Disposition: Home Condition: Improving Discharge Details Chief Complaint: SOB Clinical Impression: Hypomagnesemia, Hypoalbuminemia, Hypokalemia Primary Care Provider: Ana María Daily ED Provider: Melvin Espinosa Home Meds and New Rx's Prescriptions: No Action trazodone 50 mg tablet 50 mg PO HS Patient Comments: take 1 tablet by mouth at bedtime spironolactone 50 mg tablet 50 mg PO DAILY Qty: 7 0RF dextroamphetamine-amphetamine 20 mg tablet 1 tab PO 1400 Rx Instructions: 30MG QAM, 20MG @ 2PM buprenorphine-naloxone [Suboxone] 8-2 mg film 2 film sublingual DAILY Patient Comments: PLACE 2 UNDER THE TONGUE FOR 18 DAYS dextroamphetamine-amphetamine 30 mg tablet 30 mg PO DAILY Patient Comments: TAKE ONE TABLET BY MOUTH EVERY MORNING spironolactone 50 mg tablet 50 mg PO DAILY Qty: 30 0RF potassium chloride 20 mEq tablet extended release 40 meq PO DAILY Discharge Instructions Instructions: Hypokalemia, Hypomagnesemia Additional Instructions: Please follow-up with your primary care physician. HPI General Date/Time Provider Initiated Documentation: 01/26/24 09:16 . HPI Narrative: 43-year-old female history of polysubstance abuse presents with persistent/recurrent hypokalemia bilateral lower extremity edema, recently transition from Lasix to spironolactone Related Data Home Medications ?Medication ?Instructions ?Recorded ?Confirmed buprenorphine 8 mg-naloxone 2 mg 2 film sublingual DAILY 08/04/22 01/26/24 sublingual film (Suboxone) dextroamphetamine-amphetamine 20 1 tab PO 1400 08/04/22 01/26/24 mg tablet trazodone 50 mg tablet 50 mg PO HS 05/31/23 01/26/24 dextroamphetamine-amphetamine 30 30 mg PO DAILY 10/26/23 01/26/24 mg tablet spironolactone 50 mg tablet 50 mg PO DAILY #30 tabs 10/31/23 01/26/24 spironolactone 50 mg tablet 50 mg PO DAILY #7 tabs 01/19/24 01/26/24 potassium chloride 20 mEq 40 meq PO DAILY 01/26/24 01/26/24 tablet,extended release Previous Rx's ?Medication ?Instructions ?Recorded spironolactone 50 mg tablet 50 mg PO DAILY #30 tabs 10/31/23 spironolactone 50 mg tablet 50 mg PO DAILY #7 tabs 01/19/24 Allergies Allergy/AdvReac Type Severity Reaction Status Date / Time No Known Allergies Allergy Unverified 01/26/24 09:24 General Stated Complaint: SOB ADRIANA: 3 Exam Narrative Exam Narrative: Resting comfortably no acute distress Moist mucous membranes Sinus tachycardia no murmurs rubs or gallops Speaking full sentences no respiratory distress no tachypnea no retractions Pitting edema to level of shins bilaterally Alert oriented moving all extremities ambulatory without assistance Course Vital Signs Vital signs: Vital Signs Temperature 36.4 C L 01/26/24 09:17 Pulse 103 H 01/26/24 09:17 Respiratory Rate 25 H 01/26/24 09:17 Blood Pressure 135/112 H 01/26/24 09:17 Pulse Oximetry 100 01/26/24 09:17 Temperature 36.4 C L 01/26/24 09:17 Temperature Source Temporal Artery Scan 01/26/24 09:17 Pulse 103 H 01/26/24 09:17 Respiratory Rate 25 H 01/26/24 09:17 Blood Pressure 135/112 H 01/26/24 09:17 Blood Pressure Position Sitting 01/26/24 09:17 Pulse Oximetry 100 01/26/24 09:17 Oxygen Delivery Method Room Air 01/26/24 09:17 Oxygen Flow Rate 0 01/26/24 09:17 Pain Level 5 01/26/24 09:17 Medical Decision Making 43-year-old female history of polysubstance abuse presents with worsening peripheral edema and persistent hypokalemia, recently started on spironolactone as well as potassium supplementation, EKG normal sinus rhythm normal axis nonischemic, patient resting comfortably no respiratory distress hemodynamically stable no to be hypertensive; must consider component of CHF given fluid overload state hypertension, lower suspicion for acute ACS PE or aortic pathology, low suspicion for diuretic induced hypokalemia as patient has been off of her Lasix and has been taking potassium sparing diuretics as well as potassium supplementation muscles consider dietary component of hypokalemia. W ill obtain basic labs magnesium chest x-ray EKG troponin BNP disposition pending reassessment and results 10: 47 third spacing/extravasation of fluid likely resultant from hypoalbuminemia, will infuse albumin; patient noted to be hypomagnesemic and hypokalemic will replete both of these electrolytes; no respiratory distress no hypoxia, lungs clear on x-ray 14: 20 patient resting fully no acute distress. Blood pressure and heart rate have improved. No respiratory symptomatology. Patient will follow-up closely with primary care. Given home care instructions and return precautions Quality:SDOH Health Related Social Needs: No Data to Display PFSH All Active Problems (Updated 01/26/24 @ 14:21 by Melvin Espinosa MD) Hypokalemia (Acute) Hypoalbuminemia (Acute) Hypomagnesemia (Acute) Bilateral edema of lower extremity (Acute) Hypokalemia (Acute) Pneumonia of left lower lobe due to infectious organism (Acute) Opioid use disorder in remission (Chronic) Alcoholic hepatitis without ascites (Chronic) Hypoalbuminemia (Chronic) Anasarca (Acute) Hypocalcemia (Chronic) Acute hypokalemia (Acute) Pancreatic mass (Acute) Insomnia (Acute) Acute on chronic pancreatitis (Acute) Pancreatic pseudocyst (Chronic) Chronic pancreatitis (Chronic) Pancreatitis (Acute) Medical History Colitis Alcohol dependence ADHD Opioid dependence on agonist therapy Surgical History S/P cholecystectomy and removal of two pancreatic pseudocysts Social History Smoking/Tobacco Use Status: Current every day Tobacco Type: cigarettes Smoking packs per day: 0.5 Smoking cigarettes per day: 10.0 Years smoked: 27 Smoking pack-years: 13.50 Quit status: considering quitting Counseling given: provider counseling and support medications Smoking risk assessment performed?: Yes Alcohol Intake: current Alcohol Intake frequency: a few times a month Alcohol type: beer Counseling provided: provider counseling Drug use: Occasionally Substance use type: marijuana Housing: apartment Do you feel safe at home: Yes Do you feel safe in your relationship?: Yes
[2024-01-26 10:16] LABS: Absolute Basophil Count 0.05 10^3/uL (0.0-0.2); Absolute Eosinophil Count 0.03 10^3/uL (0.0-0.7); Absolute Lymphocyte Count 1.62 10^3/uL (1.2-3.4); Absolute Neutrophil Count 10.54 10^3/uL (1.2-6.7); Basophils % 0.4 %; Eosinophils % 0.2 %; HCT 31.4 % (36.0-46.0); HGB 11.3 g/dL (11.2-15.7); Immature Grans % 0.8 %; Lymphocytes % 12.2 %; MCH 33.7 pg (27.0-33.0); MCV 94 fL (80-95); MPV 10.5 fL (8.0-11.0); Monocytes % 6.9 %; Neutrophils % 79.5 %; Platelet Count 210 10^3/uL (130-400); RBC 3.35 10^6/uL (3.93-5.22); RDW-SD 44.6 fL; WBC 13.26 10^3/uL (4.4-10.8)
[2024-01-26 10:19] LABS: Absolute Monocyte Count 0.91 10^3/uL (0.1-0.8)
--- NOTE | 2024-01-26 10:34 | DI.RAD_ITS ---
Exam(s) XR CHEST 2V PA LATERAL EXAM: XR CHEST 2V PA LATERAL CLINICAL HISTORY: fluid overload, hypoK TECHNIQUE: 2D digital imaging was performed of the chest. Two images were obtained. PA and lateral views were obtained. COMPARISON: CT CT CHEST PE CTA from 10/26/2023 CR,XR XR CHEST 2V PA LATERAL from 10/29/2023 FINDINGS: MEDIASTINUM: Normal. HEART: Normal. PULMONARY VASCULATURE: Normal. LUNGS: Clear. PLEURAL SPACE: No pleural effusion or pneumothorax. BONE:Within normal limits for the patient's age. OTHER FINDINGS:Normal. IMPRESSION: No acute pulmonary findings. DATA REPOSITORY: RADIATION DOSE DELIVERED:
[2024-01-26 10:40] LABS: ALT 60 U/L (14-59); AST 78 U/L (15-37); Albumin 1.5 g/dL (3.4-5.0); Alkaline Phosphatase 247 U/L (46-116); Anion Gap 8.8 mmol/L (3-11); BUN 1 mg/dL (7-18); CO2 28.2 mmol/L (21.0-32.0); CREATININE 0.6 mg/dL (0.55-1.02); Calcium 7.2 mg/dL (8.5-10.1); Chloride 105 mmol/L (98-107); Estimated GFR 114.86 (mL/min/1.73m2); Glucose 115 mg/dL (74-106); NT-proBNP 1011 pg/mL (<300); Sodium 142 mmol/L (136-145); TSH (W/Ref FT4) 2.74 uIU/mL (0.36-3.74); Total Protein 5.5 g/dL (6.4-8.2); Troponin I < 50 ng/L (< or =60)
[2024-01-26 10:42] LABS: Potassium 2.3 mmol/L (3.5-5.1)
[2024-01-26] MEDS: ALBUMIN HUMAN 25 GM/100 ML BTL IVPB (10:59)
[2024-01-26] MEDS: Potassium Chloride 20 MEQ TABCR PO (10:59)
[2024-01-26] MEDS: MAGNESIUM SULFATE 1 GM/100 ML BAG IVINF (11:40)
[2024-01-26] MEDS: POTASSIUM CHLORIDE 10 MEQ/100 ML BAG 100 MEQ IVINF (11:41)
== END 2024-01-26 14:31 | disposition home or self-care (01) ==
PROVIDERS: Emergency Provider Emergency Medicine; PCP Registered Nurse Critical Care Medicine
DX: R60.0 Localized edema (principal); R06.02 Shortness of breath; E87.6 Hypokalemia; E88.09 Other disorders of plasma-protein metabolism, not elsewhere classified; E83.42 Hypomagnesemia
CPT/HCPCS: 36415; 80053; 81025; 93005; 96365; 96367; 99284; 71046; 83735; 83880; 84443; 84484; 85025; 93010; 99283; J3475; J3480; P9047

== ENCOUNTER 2024-02-04 13:44 | Outpatient (CLI) | payer MEDICARE, SELFPAY ==
[2024-02-04 11:22] LABS: Potassium 1.8 mmol/L (3.5-5.1)
== END 2024-02-04 13:45 | disposition home or self-care (01) ==
LOC: LBO 13:45
PROVIDERS: PCP Registered Nurse Critical Care Medicine; Visit Provider Nurse Practitioner Family
DX: E56.1 Deficiency of vitamin K (principal)
CPT/HCPCS: 36415; 84132

== ENCOUNTER 2024-02-05 21:54 | Inpatient (IN) | payer MEDICARE, SELFPAY ==
[2024-02-05] VITALS (25 sets, daily range): BP systolic 115–119; BP diastolic 71–77; PULSE 91–103; RESP 15–28; TEMP 36.6; O2SAT 100
--- NOTE | 2024-02-05 21:45 | RT.EKG_ITS ---
APPROVED REPORT Exam: Resting ECG Reason for Exam: low K+ Patient Location: E HR:98 bpm ECG Measurements Heart Rate 98 AXIS MN 125 P 71 QRSd 79 QRS 44 QT 363 T 227 QTc 464 Conclusion Sinus rhythm...normal P axis, V-rate 60- 99 Repol abnrm suggests ischemia, diffuse leads...ST-T neg, ant/lat/inf I have reviewed and interpreted ECG and agree with software generated interpretation. Diffuse ST changes new compared to prior EKG performed on 01/26/2024 at 09:18 and likely related to h ypokalemia.
--- NOTE | 2024-02-05 22:15 | ED.GENADUL_ITS ---
Discharge Plan Disposition Patient Disposition: Admit to [facility] Condition: Fair Discharge Details Clinical Impression: Hypokalemia, Hypomagnesemia, Hypoalbuminemia Primary Care Provider: Ana María Daily ED Provider: Sandeep Roy [place] Meds and New Rx's Prescriptions: No Action trazodone 50 mg tablet 50 mg PO HS Patient Comments: take 1 tablet by mouth at bedtime dextroamphetamine-amphetamine 20 mg tablet 1 tab PO 1400 Rx Instructions: 30MG QAM, 20MG @ 2PM buprenorphine-naloxone [Suboxone] 8-2 mg film 2 film sublingual DAILY Patient Comments: PLACE 2 UNDER THE TONGUE FOR 18 DAYS dextroamphetamine-amphetamine 30 mg tablet 30 mg PO DAILY Patient Comments: TAKE ONE TABLET BY MOUTH EVERY MORNING spironolactone 50 mg tablet 50 mg PO DAILY Qty: 30 0RF potassium chloride 20 mEq tablet extended release 40 meq PO DAILY albuterol sulfate 90 mcg/actuation HFA aerosol inhaler 1 inh INHALATION Q4H PRN spironolactone 25 mg tablet 25 mg PO DAILY Brixadi 64 mg/0.18 mL solution, extended rel syringe 64 mg SUBCUT .monthly HPI General Mode of arrival: ambulatory . Date/Time Provider Initiated Documentation: 02/05/24 22:11 . Limitations to Documentation: no limitations . Information obtained by: patient, RN notes reviewed and old records reviewed . HPI Narrative: Patient presents to ED with reported low potassium at 1.8 when checked yesterday by primary care. Has been having issues with potassium, magnesium, albumin. Was seen here on the and the . Had been on Lasix in the past for bilateral lower extremity edema. Has been switched to spironolactone and was taking potassium supplements. Ran out of both prior to follow-up with primary care yesterday. Has prior history of substance abuse but has been clean from drugs for over 2 decades. Still occasionally has alcohol but not to excess and not regularly. Prior history of pancreatitis, hepatitis. Over the last week or so she has been having diarrhea, nausea, cough. Also experiencing some shortness of breath and today some chest discomfort. Denies any fever. Continues to have lower extremity edema which has been a chronic issue. Related Data Home Medications ?Medication ?Instructions ?Recorded ?Confirmed buprenorphine 8 mg-naloxone 2 mg 2 film sublingual DAILY 08/04/22 02/05/24 sublingual film (Suboxone) dextroamphetamine-amphetamine 20 1 tab PO 1400 08/04/22 02/05/24 mg tablet trazodone 50 mg tablet 50 mg PO HS 05/31/23 02/05/24 dextroamphetamine-amphetamine 30 30 mg PO DAILY 10/26/23 02/05/24 mg tablet spironolactone 50 mg tablet 50 mg PO DAILY #30 tabs 10/31/23 02/05/24 potassium chloride 20 mEq 40 meq PO DAILY 01/26/24 02/05/24 tablet,extended release albuterol sulfate 90 mcg/actuation 1 inh inhalation Q4H PRN 02/05/24 02/05/24 aerosol inhaler buprenorphine 64 mg/0.18 mL 64 mg subcut .monthly 02/05/24 02/05/24 solution,exten.rel.subcutaneous syringe (Brixadi Monthly) spironolactone 25 mg tablet 25 mg PO DAILY 02/05/24 02/05/24 Previous Rx's ?Medication ?Instructions ?Recorded spironolactone 50 mg tablet 50 mg PO DAILY #30 tabs 10/31/23 Allergies Allergy/AdvReac Type Severity Reaction Status Date / Time No Known Allergies Allergy Unverified 02/05/24 22:03 General Stated Complaint: [facility] ADRIANA: 3 Review of Systems Narrative: Per HPI Exam Narrative Exam Narrative: Const: WDWN female in NAD. VS per triage. HEENT: NC/AT. Normal facial exam. Neck: Supple. Trachea midline. Lungs: Normal respiratory effort. Lungs with rhonchi both bases. Cor: RRR without murmur. Good radial pulses. GI: Soft/ND/NT. Neuro: A+O x 3. Normal speech, mentation, gait. Cranial nerves II - XII grossly intact. No gross motor or sensory deficit. Ext: No C/C. BLE edema. Course Vital Signs Vital signs: Vital Signs Temperature 97.8 F 02/05/24 22:01 Pulse 103 H 02/05/24 22:01 Respiratory Rate 21 02/05/24 22:01 Blood Pressure 115/77 02/05/24 22:01 Pulse Oximetry 100 02/05/24 22:01 Temperature 97.8 F 02/05/24 22:01 Temperature Source Temporal Artery Scan 02/05/24 22:01 Pulse 103 H 02/05/24 22:01 Respiratory Rate 21 02/05/24 22:01 Blood Pressure 115/77 02/05/24 22:01 Blood Pressure Position Supine 02/05/24 22:01 Pulse Oximetry 100 02/05/24 22:01 Oxygen Delivery Method Room Air 02/05/24 22:01 Oxygen Flow Rate 0 02/05/24 22:01 Pain Level 4 02/05/24 22:01 Medical Decision Making Patient presenting to ED with reported potassium of 1.8 yesterday. She has been ill with diarrhea and has not been taking her spinal lactone or potassium prescribed when she was discharged from the ED previously. She has chronic lower extremity edema, hypoalbuminemia, prior problems with potassium and magnesium. Has prior history of alcohol dependence and has not completely stopped drinking but drinks very infrequently only. Repeat potassium today is 1.6. Magnesium is 1.2. White count elevated to 17 and hemoglobin has dropped s ome to 9.3. She has rhonchi in both lung bases. Chest x-ray is clear per my read and her nasal swab is negative for COVID, flu, RSV. BNP has dropped from 1000 on last visit to below 500. Troponin is negative. Lipase is normal. Liver functions a little elevated but seem to wax and wane over time. Albumin is markedly low. Patient is ordered for oral and intravenous electrolyte replacement. Her EKG shows diffuse ST changes likely related to her electrolyte derangement. Case discussed with hospitalist for admission. Should likely be referred to liver GI at discharge as I suspect this is the likely source for her problems. Medical Records Medical records reviewed: Yes I reviewed the patient's medical records. Imaging Data Radiologic Study: Attestation: I personally reviewed and interpreted this imaging study as follows: Imaging: X-Ray My impression: Normal chest x-ray Lab Data Lab results reviewed: Yes I reviewed the patient's lab results. ECG Data Attestation: I personally reviewed and interpreted this ECG (s) as follows: Prior ECG tracings: available for review Interpretation: See EKG/MDM [facility] All Active Problems (Updated 02/05/24 @ 23:26 by Sandeep Roy MD) Hypokalemia (Acute) Hypoalbuminemia (Acute) Hypomagnesemia (Acute) Bilateral edema of lower extremity (Acute) Opioid use disorder in remission (Chronic) Anasarca (Acute) Hypocalcemia (Chronic) Pancreatic mass (Acute) Insomnia (Acute) Pancreatic pseudocyst (Chronic) Chronic pancreatitis (Chronic) Medical History Colitis ADHD Opioid dependence on agonist therapy Surgical History S/P cholecystectomy and removal of two pancreatic pseudocysts Social History Smoking/Tobacco Use Status: Current every day Tobacco Type: cigarettes Smoking packs per day: 0.5 Smoking cigarettes per day: 10.0 Years smoked: 27 Smoking pack-years: 13.50 Quit status: considering quitting Counseling given: provider counseling and support medications Smoking risk assessment performed?: Yes Alcohol Intake: current Alcohol Intake frequency: a few times a month Alcohol type: beer Counseling provided: provider counseling Drug use: Occasionally Substance use type: marijuana Housing: apartment Do you feel safe at home: Yes Do you feel safe in your relationship?: Yes
[2024-02-05 22:31] LABS: Abs Immature Grans 0.32 10^3/uL (0.0-0.06); Absolute Eosinophil Count 0.35 10^3/uL (0.0-0.7); Absolute Lymphocyte Count 2.45 10^3/uL (1.2-3.4); Absolute Monocyte Count 1.24 10^3/uL (0.1-0.8); Absolute Neutrophil Count 12.95 10^3/uL (1.2-6.7); Basophils % 0.6 %; HCT 25.2 % (36.0-46.0); HGB 9.3 g/dL (11.2-15.7); Immature Grans % 1.8 %; Lymphocytes % 14.1 %; MCH 34.3 pg (27.0-33.0); MCHC 36.9 % (32.0-36.0); MCV 93 fL (80-95); MPV 10.2 fL (8.0-11.0); Monocytes % 7.1 %; Neutrophils % 74.4 %; Platelet Count 448 10^3/uL (130-400); RBC 2.71 10^6/uL (3.93-5.22); RDW 14.4 % (11.7-14.6); RDW-SD 48.3 fL
--- NOTE | 2024-02-05 22:46 | DI.RAD_ITS ---
Exam(s) XR CHEST 2V PA LATERAL EXAM: XR CHEST 2V PA LATERAL CLINICAL HISTORY: cough, SOB TECHNIQUE: 2D digital imaging was performed. Two views. COMPARISON: CR XR CHEST 2V PA LATERAL from 01/26/2024 FINDINGS: HEART: Normal size. Aorta: Not dilated. PULMONARY VASCULATURE: Normal. MEDIASTINUM: Unremarkable. LUNGS: Clear. PLEURAL SPACE: No pleural effusion or pneumothorax. BONE:Unremarkable for age. SOFT TISSUES: Unremarkable. IMPRESSION: No acute abnormality. DATA REPOSITORY: RADIATION DOSE DELIVERED:
[2024-02-05 23:01] LABS: ALT 45 U/L (14-59); AST 45 U/L (15-37); Albumin 1.3 g/dL (3.4-5.0); Alkaline Phosphatase 239 U/L (46-116); Anion Gap 9.9 mmol/L (3-11); BUN 3 mg/dL (7-18); Bilirubin, Total 1.62 mg/dL (0.2-1.0); CO2 28.1 mmol/L (21.0-32.0); Calcium 7.5 mg/dL (8.5-10.1); Chloride 107 mmol/L (98-107); Estimated GFR 72.13 (mL/min/1.73m2); Glucose 157 mg/dL (74-106); Lipase 28 U/L (16-77); Magnesium 1.2 mg/dL (1.8-2.4); NT-proBNP 478 pg/mL (<300); Sodium 145 mmol/L (136-145); Total Protein 5.7 g/dL (6.4-8.2); Troponin I < 50 ng/L (< or =60)
[2024-02-05 23:02] LABS: Potassium 1.6 mmol/L (3.5-5.1)
[2024-02-05 23:04] LABS: COVID-19 PCR Negative (Negative); Influenza A PCR Negative (Negative); Influenza B PCR Negative (Negative); RSV PCR Negative (Negative)
[2024-02-05 23:06] LABS: Source Nasopharynx
[2024-02-05] MEDS: Normal Saline 1,000 ML 100 ML IV (23:26)
[2024-02-05] MEDS: MAGNESIUM SULFATE 2 GM/50 ML BAG IVINF (23:26)
[2024-02-05] MEDS: POTASSIUM CHLORIDE 10 MEQ/100 ML BAG 100 MEQ IVINF (23:26)
[2024-02-05] MEDS: Potassium Chloride 20 MEQ TABCR 40 MEQ PO (23:26)
[2024-02-05] MEDS: Magnesium Oxide 400 MG TAB 800 MG PO (23:26)
[2024-02-06] VITALS (56 sets, daily range): BP systolic 101–126; BP diastolic 66–84; PULSE 82–98; RESP 12–26; TEMP 36.3–37; O2SAT 20–100
--- NOTE | 2024-02-06 00:03 | DI.VRAD_ITS ---
PROCEDURE INFORMATION: Exam: XR Chest Exam date and time: 02/05/2024 10:43 PM Age: 43 years old Clinical indication: Cough and shortness of breath; Patient HX: Cough, SOB TECHNIQUE: Imaging protocol: Radiologic exam of the chest. Views: 2 views. COMPARISON: CR XR CHEST 2V PA LATERAL 01/26/2024 10:28 AM FINDINGS: Lungs: Unremarkable. No consolidation. Pleural spaces: Unremarkable. No pleural effusion. No pneumothorax. Heart/Mediastinum: Unremarkable. No cardiomegaly. Bones/joints: Unremarkable. IMPRESSION: No acute findings. Dictated and Authenticated by: Ugo Lemus MD. Ordering:ARTUR Hopkins MD
--- NOTE | 2024-02-06 00:22 | W.PM.HP.N ---
Date of service: 02/06/24 Time of Service: 00:22 Assessment and Plan Assessment and plan (1) Hypokalemia: Status: Acute Assessment and plan: Chronic hypokalemia exacerbated by recent diarrhea and poor oral intake. Patient has run out of her prescriptions for her potassium and her spironolactone. Patient will be admitted on telemetry while she receives parenteral and oral potassium replacement. She will also receive oral and parenteral magnesium supplementation with serial monitoring of her labs. Will obtain nutritional consult and start her on protein supplements. Patient is anemic we will monitor stools for occult blood and check B12 and folate stores and iron levels in the morning. Should be started on folic acid supplement and thiamine supplement. Will consult with nutritional services regarding recommendations for improved nutrition. Patient be started on Pepcid for GERD symptoms. I chose not to use Protonix because the exacerbation of her hypomagnesemia with PPI use. Consider outpatient upper and lower endoscopy unless she shows signs of overt bleeding. (2) Hypoalbuminemia: Status: Acute Assessment and plan: Nutritionally depleted. Begin oral protein supplementation and obtain nutritional consult. (3) Hypomagnesemia: Status: Acute Assessment and plan: Begin oral as well as parenteral supplementation (4) Bilateral edema of lower extremity: Status: Acute Assessment and plan: Chronic bilateral lower extremity edema. 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 She does not appear to be volume overloaded as she has no JVD and ultrasound of her IVC showed no plethoric changes and shows complete collapsibility indicating low right-sided filling pressures. (5) ADHD: Assessment and plan: Continue home medications Qualifiers: Attention deficit-hyperactivity disorder type: combined inattentive-hyperactive Qualified Code(s): F90.2 - Attention-deficit hyperactivity disorder, combined type (6) Opioid dependence on agonist therapy: Assessment and plan: Your home Suboxone dose (7) Normocytic normochromic anemia: Status: Acute Assessment and plan: Check serum iron, ferritin, TIBC as well as B12 and folic acid levels. Check stool for occult blood and begin the patient on a H2 charles will avoid Lovenox for DVT prophylaxis and placed on SCDs (8) GERD (gastroesophageal reflux disease): Status: Suspected Assessment and plan: patient complain of some dysphagia w/ certain foods, pills, occasional acid taste in her mouth after meals. No formal dx of GERD but suspect based on symptoms. will put her on pepcid (rather than protonix given her recurrent low Mg levels). Will ask speech to evaluate her swallowing to see if we need more formal barium swallow exam. Qualifiers: Esophagitis presence: esophagitis presence not specified Qualified Code(s): K21.9 - Gastro-esophageal reflux disease without esophagitis History of Present Illness History of Present Illness Chief Complaint: Hypokalemia and hypomagnesemia Narrative: 43-year-old female with history of alcohol abuse disorder and alcoholic hepatitis and chronic pancreatitis status post resection pancreatic pseudocyst as well as a history of opioid use disorder in remission for 15 years chronically on Suboxone therapy and a history of anasarca in the past. Patient's been on Lasix and spironolactone in the past but has had recent problems with recurrent hypokalemia and hypomagnesemia. She has presented to the emergency department 3 times in the past 2 weeks because of hypokalemia. She was started on spironolactone 50 mg daily and potassium chloride 20 mill colons daily on 01/19/2024 but presented back to emergency department on 01/26/2024 with recurrent hypokalemia and hypomagnesemia. She has chronic bilateral lower extremity edema and has been taken off the Lasix and was just treated with spironolactone. She presented tonight to the emergency department where an outpatient potassium level was rechecked by her primary care provider and found to be 1.8. Patient reports she has been having diarrhea for the past week with some nausea and 1 episode of bilious emesis. She has no abdominal pain fever or chills she also reportedly had a nonproductive cough and some mild dyspnea. Still has some mild peripheral pedal and ankle edema. Evaluation emergency room was notable for a white count of 17,400 and a hemoglobin of 9.3 g which is a drop from her previous hemoglobin 11.3 g from 10 days ago. Potassium is 1.6 and her magnesium is 1.2 calcium 7.5 and her albumin level is 1.3. Her proBNP is 478 whereas before been over thousand. Liver enzymes are mildly elevated but decreased from previous levels with an AST of 45 and alkaline phosphatase of 239 with total bilirubin 1.62. Lipase is normal at 28. Imaging of her chest included chest x-ray that showed no acute pulmonary findings and her UA was unremarkable. Dr. Roy, ED provider, ordered her 40 mill equivalents of potassium orally and 20 mill equivalents of potassium intravenously as well as 2 g of magnesium sulfate intravenously and 800 mg of magnesium oxide. He was requesting for the hospital service to admit her for correction of her electrolyte abnormalities. Review of Systems ENT Ears, Nose, Mouth, and Throat: Reports dysphagia Cardiovascular Cardiovascular: Reports system reviewed and no additional complaints, except as documented Respiratory Respiratory: Reports cough, Denies hemoptysis and Denies excessive phlegm production Gastrointestinal Gastrointestinal: Denies abdominal pain, Denies melena, Denies hematochezia, Denies coffee ground emesis, Reports dysphagia, Reports dyspepsia, Reports diarrhea, Reports loose stools, Reports nausea, Reports vomiting and Denies hematemesis Genitourinary Genitourinary: Reports system reviewed and no additional complaints, except as documented PFSH All Active Problems (Updated 02/06/24 @ 01:27 by Junior Carvajal MD) Normocytic normochromic anemia (Acute) Hypokalemia (Acute) Hypoalbuminemia (Acute) Hypomagnesemia (Acute) Bilateral edema of lower extremity (Acute) Opioid use disorder in remission (Chronic) Hypocalcemia (Chronic) Insomnia (Acute) Chronic pancreatitis (Chronic) Medical History (Updated 02/06/24 @ 01:27 by Junior Carvajal MD) Pancreatic pseudocyst Pancreatic mass Anasarca Ganglion cyst of dorsum of left wrist Colitis ADHD Opioid dependence on agonist therapy Surgical History S/P cholecystectomy and removal of two pancreatic pseudocysts Social History Smoking/Tobacco Use Status: Current every day Tobacco Type: cigarettes Smoking packs per day: 0.5 Smoking cigarettes per day: 10.0 Years smoked: 27 Smoking pack-years: 13.50 Quit status: considering quitting Counseling given: provider counseling and support medications Smoking risk assessment performed?: Yes Alcohol Intake: current Alcohol Intake frequency: a few times a month Alcohol type: beer Counseling provided: provider counseling Drug use: Occasionally Substance use type: marijuana Housing: apartment Do you feel safe at home: Yes Do you feel safe in your relationship?: Yes Meds Allergies and Home Medications Allergies Allergy/AdvReac Type Severity Reaction Status Date / Time No Known Allergies Allergy Unverified 08/03/24 22:03 Home Medications ?Medication ?Instructions ?Recorded ?Confirmed ?Type buprenorphine 8 mg-naloxone 2 mg 2 film sublingual DAILY 08/04/22 02/05/24 History sublingual film (Suboxone) dextroamphetamine-amphetamine 20 1 tab PO 1400 08/04/22 02/05/24 History mg tablet trazodone 50 mg tablet 50 mg PO HS 05/31/23 02/05/24 History dextroamphetamine-amphetamine 30 30 mg PO DAILY 10/26/23 02/05/24 History mg tablet spironolactone 50 mg tablet 50 mg PO DAILY #30 tabs 10/31/23 02/05/24 Rx potassium chloride 20 mEq 40 meq PO DAILY 01/26/24 02/05/24 History tablet,extended release albuterol sulfate 90 mcg/actuation 1 inh inhalation Q4H PRN 02/05/24 02/05/24 History aerosol inhaler buprenorphine 64 mg/0.18 mL 64 mg subcut .monthly 02/05/24 02/05/24 History solution,exten.rel.subcutaneous syringe (Brixadi Monthly) spironolactone 25 mg tablet 25 mg PO DAILY 02/05/24 02/05/24 History Exam Narrative Exam Narrative: Middle-aged white female no acute distress she appears to be older than her stated age of [age] years old. Skin color is car HEENT conjunctiva are noninjected sclera is anicteric oropharynx no exudate teeth are in poor repair mucous membranes are moist Neck supple nontender no JVD normal carotid pulses no bruits Lungs are clear to auscultation Heart is regular rate and rhythm without murmur rub or gallop Abdomen is nondistended normal bowel sounds soft and nontender with palpable hepatomegaly but no splenomegaly no bruits no HJR, patient has a midline scar from the umbilicus to the epigastrium from her prior cholecystectomy and pancreatic pseudocyst ectomy Lower extremities 1+ pitting edema of her feet and ankles with normal pedal pulses Skin without open lesions nonjaundiced but car appearance to the skin she has multiple tattoos Neuro exam grossly intact no asterixis normal range of motion grossly normal sensation light touch no tremors Results Imaging Chest x-ray: report reviewed and image reviewed Labs 02/05/24 22:16 02/05/24 22:16 Labs: Laboratory Results - last 24 hr 02/05/24 22:16 WBC 17.40 H RBC 2.71 L Hgb 9.3 L Hct 25.2 L MCV 93 MCH 34.3 H MCHC 36.9 H RDW 14.4 Plt Count 448 H MPV 10.2 Immature Gran % 1.8 Neutrophils % 74.4 Lymphocytes % 14.1 Monocytes % 7.1 Eosinophils % 2.0 Basophils % 0.6 Nucleated RBC % 0.0 Absolute Neutrophils 12.95 H Absolute Lymphocytes 2.45 Absolute Monocytes 1.24 H Absolute Eosinophils 0.35 Absolute Basophils 0.10 Sodium 145 Potassium 1.6 L* Chloride 107 Carbon Dioxide 28.1 Anion Gap 9.9 BUN 3 L Creatinine 1.0 Est GFR (CKD-EPI 2020) 72.13 Glucose 157 H Calcium 7.5 L Magnesium 1.2 L Total Bilirubin 1.62 H AST 45 H ALT 45 Alkaline Phosphatase 239 H Troponin I < 50 NT-Pro-B Natriuret Pep 478 H Total Protein 5.7 L Albumin 1.3 L Lipase 28 COVID-19 Source Nasopharynx SARS-CoV-2 (PCR) Negative Influenza Type A (PCR) Negative Influenza Type B (PCR) Negative RSV (PCR) Negative Last Vital Signs Temp 36.6 C 02/05/24 22:35 Pulse 97 H 02/05/24 22:35 Resp 23 02/05/24 22:35 BP 116/71 02/05/24 22:35 Pulse Ox 100 02/05/24 22:35 Time Spent Time spent with Patient: 40-54 minutes Time was spent: preparing to see the patient(eg.review tests), obtaining and/or reviewing separately otained hiistory, ordering medications,tests, procedures, referring, communicating with other health respiratory care faculty (Discussion with Dr. Roy, and nursing staff), indepentently interpreting results, counseling the patient and care coordination
[2024-02-06] MEDS: POTASSIUM CHLORIDE 10 MEQ/100 ML BAG 100 MEQ IVINF ×3 (00:40→17:51)
--- OUTSIDE RECORDS SUMMARY | 2024-02-06 00:56 | XMS_ITS | Encounter Summary ---
Author Organization [facility] Address [address] [place] [address] Care Team Providers Care Rehanger Name Role Phone Unavailable Primary Care Provider Unavailabl e Reason for Visit * Reason Onset Date Comments Medication Management 01/27/2024 Encounter Details Date Type Department Care Team (Late st Contact Info) Description 01/27/2024 Telephone [facility] [address] [place] [address] Stacie Joseph RPH Medication Management Social History Tobacco Use Types Packs/Day Years Used Date Smoking Tobacco: Never Assessed Sex and Gender Information Value Date Recorded Sex Assigned at Not on file Gender Identity Not on file Sexual Orientation Not on file documented as of this encounter Plan of Treatment Not on file documented as of this encounter Visit Diagnoses Not on filedocumented in this encounter
--- OUTSIDE RECORDS SUMMARY | 2024-02-06 00:56 | XMS_ITS | Continuity of Care Document ---
Author Organization [facility] Address [address] [place] [address] Care Team Providers Care Community Health Nursing Director Name Role Phone Killian SPRAGUEAna María Lombardo Primary Care Physician [phone] Encounter [facility]BR [id number] Date(s): 11/08/23 - 11/08/23 [facility] [address] [place] [address]- [place] Discharge Disposition: Home Allergies, Adverse Reactions, Alerts Substance Reaction Severity Status ciprofloxacin Vomiting Moderate Active codeine Bleeding Severe Active sulfamethoxazole Unknown Active Flagyl GI intolerance Mild Active Tylenol GI intolerance Mild Active traMADol GI intolerance Mild Active Cat Hair puffy eye Sneezing Mild Active Assessment and Plan Future Appointments Medications Adderall 20 mg oral tablet 20 mg 1 tab, Oral, Daily, Take in the afternoon, # 30 tab, 0 Refill(s), Pharmacy: [id number], cm, 10/12/23 8:05:00 EDT, Height, 61.9, kg, 10/12/23 8:14:00 EDT, Weight Dosing Start Date: 11/09/23 Stop Date: 12/09/23 Status: Ordered dextroamphetamine-amphetamine 30 mg oral tablet 30 mg 1 tab, Oral, Daily, Take In the morning, # 30 tab, 0 Refill(s), Pharmacy: [id number], [id number], cm, 10/12/23 8:05:00 EDT, Height, 61.9, kg, 10/12/23 8:14:00 EDT, Weight Dosing Start Date: 11/09/23 Stop Date: 12/09/23 Status: Ordered ProAir HFA 90 mcg/inh inhalation aerosol 1 puffs, Inhale, every 4 hr, PRN as needed for wheezing, # 8.5 g, 0 Refill(s) Start Date: 05/04/22 Status: Ordered Suboxone 8 mg-2 mg sublingual film 1 film, SL, Daily, dissolve under the tongue 1.5 films sl daily, 0 Refill(s) Start Date: 05/04/22 Status: Ordered traZODone 50 mg oral tablet 50 mg = 1 tab, Oral, every night at bedtime, # 30 tab, 11 Refill(s), Pharmacy: [id number], [id number], cm, 10/12/23 8:05:00 EDT, Height, 61.9, kg, 10/12/23 8:14:00 EDT, Weight Dosing Start Date: 10/13/23 Stop Date: 10/07/24 Status: Ordered triamcinolone 0.1% topical cream 1 randy, Topical, BID, # 60 g, 0 Refill(s) Start Date: 05/04/22 Stop Date: 05/18/22 Status: Ordered Problem List Condition Confirmation Course Effective Dates Status Health St [facility] Informant Anxiety Confirmed Active ADHD Confirmed Active Depression Confirmed Active Infection 1 Confirmed Active Gallbladder disease Confirmed Active Drug dependence Confirmed Active Blood pressure elevated without history of HTN Confirmed Active HTN (hypertension) Confirmed Active Low blood sugar Confirmed Active IUD (intrauterine device) in place Confirmed Active Pancreatitis Confirmed Active Seizure Confirmed Active Hepatic steatosis Confirmed Active Syncope Confirmed Active 1of the nose Procedures Procedure Date Related Diagnosis Body Site Status Biopsy 1 Completed Cholecystectomy 2 Complet ed EGD (esophagogastroduodenosc opy) gastric outlet reduction Completed Surgery 3 Completed Upper gastrointestinal endoscopy 4 Completed 1pancreas 55401 3cyst removal 23040 Social History Social History Type Response Tobacco Current everyday tob acco user Tobacco Use:. 1/2 PPD per day. Sex Female Patient Care team information Care Team Personnel Name: Ana María Daily APRN Position: Physician Member Role: Primary Care Physician Address: Address: [address] [place] [address] [place] Care Team Related Persons Name: FAB ANGULO Address: Home [address] [id number] [facility]
--- OUTSIDE RECORDS SUMMARY | 2024-02-06 00:56 | XMS_ITS | Continuity of Care Document ---
Author Organization [facility] Ambulatory Clinics Address [address] [place] [address] Care Team Providers Care Timber Spotter Name Role Phone Ana María Daily APRN Primary Care Physician [phone] Encounter [facility] NBR [id number] Date(s): 11/15/23 - 11/15/23 [facility] Ambulatory Clinics [address] [place] [address] [place] Encounter Diagnosis Fatty liver(Discharge Diagnosis) - 11/15/23 AH - Alcoholic hepatitis(Discharge Diagnosis) - 11/15/23 Alcohol dependence(Discharge Diagnosis) - 11/15/23 Pancreatic mass(Discharge Diagnosis) - 11/15/23 Chronic pancreatitis(Discharge Diagnosis) - 11/15/23 Discharge Disposition: Home or Self Care Attending Physician: Ny Cowan APRN Referring Physician: DOROTEO LIVINGSTON Allergies, Adverse Reactions, Alerts Substance Reaction Severity Status ciprofloxacin Vomiting Moderate Active codeine Bleeding Severe Active sulfamethoxazole Unknown Active Flagyl GI intolerance Mild Active Tylenol GI intolerance Mild Active Cat Hair puffy eye Sneezing Mild Active traMADol GI intolerance Mild Active Assessment and Plan Extracted from: Title:Office Visit Note-GI Author:Ny Cowan APRN Date:11/15/23 1.??Pancreatic mass??R19.09 New pancreatic mass??noted on CT scan.?? Refer patient to [facility] for endoscopic ultrasound for further evaluation.?? Follow-up with the patient in 6 weeks. ??She is advised to call if she has any problems or concerns. Ordered: Comprehensive Metabolic Panel, Blood, Routine, 11/15/23 10:50:00 EDT, Once, Lab Collect, Fatty liver AH - Alcoholic hepatitis Alcohol dependence Pancreatic mass ADHD ?? 2.??Fatty liver??K76.0 Labs ordered to rule out??hemochromatosis, viral and autoimmune hepatitis.?? Likely fatty liver disease is related to??alcohol abuse. ??Advised to maintain sobriety. ??Congratulated on her efforts??thus far. Ordered: Actin (Smooth Muscle) Antibody LC, Blood, Routine, 11/15/23 10:50:00 EDT, Once, Lab Collect, Fatty liver [id number], Serum LC, Blood, Routine, 11/15/23 10:50:00 EDT, Once, Lab Collect, Fatty liver JAMESON w/Reflex LC, Blood, Routine, 11/15/23 10:50:00 EDT, Once, Lab Collect, Fatty liver Ceruloplasmin LC, Blood, Routine, 11/15/23 10:50:00 EDT, Once, Lab Collect, Fatty liver Comprehensive Metabolic Panel, Blood, Routine, 11/15/23 10:50:00 EDT, Once, Lab Collect, Fatty liver AH - Alcoholic hepatitis Alcohol dependence Pancreatic mass ADHD Ferritin, Blood, Routine, 11/15/23 10:50:00 EDT, Once, Lab Collect, Fatty liver Follow-up Appointment Request [id number], *Est. 12/27/23 +/- 7 days, Future Order, f/u EUS and fatty liver, In Approximately, [facility] HBsAg Screen LC, Blood, Routine, 11/15/23 10:50:00 EDT, Once, Lab Collect, Fatty liver HCV Antibody Port Deposit to Quant PCR and Genotyping [id number] LC, Blood, Routine, 11/15/23 10:50:00 EDT, Once, Lab Collect, Fatty liver Hep A Ab, Total LC, Blood, Routine, 11/15/23 10:50:00 EDT, Once, Lab Collect, Fatty liver Hep B Core Ab, Tot LC, Blood, Routine, 11/15/23 10:50:00 EDT, Once, Lab Collect, Fatty liver Hepatitis B Surf Ab Quant LC, Blood, Routine, 11/15/23 10:50:00 EDT, Once, Lab Collect, Fatty liver Iron Panel, Blood, Routine, 11/15/23 10:50:00 EDT, Once, Lab Collect, Fatty liver Liver-Kidney Microsomal Ab LC, Blood, Routine, 11/15/23 10:50:00 EDT, Once, Lab Collect, Fatty liver Mitochondrial (M2) Antibody LC, Blood, Routine, 11/15/23 10:50:00 EDT, Once, Lab Collect, Fatty liver ?? 3.??AH - Alcoholic hepatitis??K70.10 Recheck labs today. Ordered: Comprehensive Metabolic Panel, Blood, Routine, 11/15/23 10:50:00 EDT, Once, Lab Collect, Fatty liver AH - Alcoholic hepatitis Alcohol dependence Pancreatic mass ADHD ?? 4.??Alcohol dependence??F10.20 As above. Ordered: Comprehensive Metabolic Panel, Blood, Routine, 11/15/23 10:50:00 EDT, Once, Lab Collect, Fatty liver AH - Alcoholic hepatitis Alcohol dependence Pancreatic mass ADHD ?? 5.??Chronic pancreatitis??K86.1 EUS as above. ??Advised to avoid alcohol use. ?? Patient returns in 6 weeks. ??Consider EGD??and colonoscopy for??increased stomach wall thickening and??thickening of the??colon suggestive of gastritis and colitis??respectively. Future Appointments Functional Status 11/15/23 Other exposure to Infectious Disease Non e Medications Adderall 20 mg oral tablet 20 mg 1 tab, Oral, Daily, Take in the afternoon, # 30 tab, 0 Refill(s), Pharmacy: [facility] #[id number],157.48, cm, 10/12/23 8:05:00 EDT, Height, 61.9, kg, 10/12/23 8:14:00 EDT, Weight Dosing Start Date: 11/09/23 Stop Date: 12/09/23 Status: Ordered dextroamphetamine-amphetamine 30 mg oral tablet 30 mg 1 tab, Oral, Daily, Take In the morning, # 30 tab, 0 Refill(s), Pharmacy: [facility] #93, 157.48, cm, 10/12/23 8:05:00 EDT, Height, [...] bedtime, # 30 tab, 11 Refill(s), Pharmacy: [facility] #93, 157.48, cm, 10/12/23 8:05:00 EDT, Height, 61.9, kg, 10/12/23 8:14:00 EDT, Weight Dosing Start Date: 10/13/23 Stop Date: 10/07/24 Status: Ordered triamcinolone 0.1% topical cream 1 randy, Topical, BID, # 1 g, 0 Refill(s), Pharmacy: [facility] #[id number], 157.48, cm, 11/15/23 8:56:00 EDT, Height, 58.06, kg, 11/15/23 9:03:00 EDT, Weight Dosing Start Date: 11/15/23 Status: Ordered Problem List Condition Confirmation Course Effective Dates Status H ealth Status Informant AH - Alcoholic hepatitis Confirmed Active Alcohol dependence Confirmed Active Anxiety Confirmed Active ADHD Confirmed Active Depression Confirmed Active Infection 1 Confirmed Active Gallbladder disease Confirmed Active Drug dependence Confirmed Active Blood pressure elevated without history of HTN Confirmed Active History of pneumonia Confirmed Active HTN (hypertension) Confirmed Active Hypoalbuminemia Confirmed Active Hypocalcemia Confirmed Active Low blood sugar Confirmed Active Hypomagnesemia Confirmed Active Insomnia Confirmed Active IUD (intrauterine device) in place Confirmed Active Opioid dependence in remission Confirmed Active Pancreatic mass Confirmed Active Pancreatic pseudocyst Confirmed Active Seizure Confirmed Active Fatty liver Confirmed Active Syncope Confirmed Active 1of the nose Procedures Procedure Date Related Diagnosis Body Site Status Biopsy 1 Completed Cholecystectomy 2 Complet ed EGD (esophagogastroduodenosc opy) gastric outlet reduction Completed Surgery 3 Completed Upper gastrointestinal endoscopy 4 Completed 1pancreas 48656 3cyst removal 26993 Vital Signs Most recent to oldest [Reference Range]: 1 Temperature Temporal Artery [36-38 Deg C ] 36.7 Deg C (11/15/23 10:23 AM) Apical Heart Rate [60-100 bpm] 114 bpm *HI* (11/15/23 10:23 AM) Blood Pressure [90-140/60-90 mmHg] 132/9 1mmHg (11/15/23 10:23 AM) Mean Arterial Pressure, Cuff [65-140 mmH g] 105 mmHg (11/15/23 10:23 AM) Weight 59.0 kg (11/15/23 10:23 AM) Weight Measured (lbs) 130.073 lb (11/15/23 10:23 AM) Weight Dosing 59.000 kg (11/15/23 10:23 AM) [place] Body Weight Calculated 50.1 kg (11/15/23 10:23 AM) Height 157.48 cm (11/15/23 10:23 AM) Height/Length Measured (inches) 62 inch (11/15/23 10:23 AM) BSA Measured 1.61 m2 (11/15/23 10:23 AM) Body Mass Index 23.79 kg/m2 (11/15/23 10:23 AM) Social History Social History Type Response Tobacco Current everyday tob acco user Tobacco Use:. 1/2 PPD per day. Sex Female Physician Outpatient Note * Ny Cowan APRN: PERFORM Event Display: Office Clinic Note Physician Authored Date: [id number] SULTANA COOK :1980 Age:43 years Sex:Female Visit Date:11/15/2023 Primary Care Physician: Ana María Daily APRN Chief Complaint pancreatitis, mass on imaging History of Present Illness Patient is a 43-year-old female here today at the request of Ana María Daily APRN for??pancreatitis and??pancreatic mass on imaging.?? This is an initial consult.?? She was recently seen in [facility] emergency room for pancreatitis??and a enlarged pancreas with infiltration??heterogeneous pattern of the head.?? She has a history of chronic pancreatitis. ??She states she began with this after having??severely diseased cholecystitis??that went untreated for years. ??During her recent hospitalization shewas given Zosyn for pneumonia. ??She states she has a history of chronic pancreatitis and has had??2 pseudocyst after having a cholecystectomy. ??She spent nearly a year at [facility] in Hospital??2013 with pancreatitis with feeding tubes??and multiple procedures.?? Patient states she was having pyrosis and nausea prior to??being hospitalized. ??Denies any at this time.?? Has had no epigastric pain. ??She states??no signs of pancreatitis??on admission to the hospital. ??She did have an episode once or twice a??year.?? She is only been hospitalized twice since 2012.?? She admits to??4-5 alcoholic beverages daily but none since recent hospitalization.?? She denies a history of alcohol abuse.?? She denies any issues with abdominal pain, constipation, diarrhea,??melena or hematochezia. ??Weight and appetite is stable.?? Denies dyspepsia, dysphagia or globus sensation.?? She reports a h istory of GERD but denies any dysphagia. ??She has frequent being discharged from the hospital.?? Not on any PPI or H2 antagonist at this time. ?? Imaging: -10/27/2023 CT scan of the abdomen and pelvis with contrast showed diffuse fatty liver disease.?? Pancreas was enlarged??with infiltration??of surrounding soft tissues. ??Pancreatic head is heterogeneous.?? There is a marked decrease in size of??peripancreatic??fluid between??the pancreas and the adjacent stomach??from prior studies in May 2023.?? There is loss of fat??surrounding the pancreas particularly between the duodenum and stomach.?? There is suggestion of??occlusion of the splenic vein.?? No biliary duct dilation.?? There was thickening of the??ascending and transverse colon??wall.?? Suggestion of thickening of the abdomen.?? Findings of the pancreas??are new.? Denies having EGD and colonoscopy. ?? Denies a history of pancreatic cancer, inflammatory bowel disease, celiac disease??or colon cancer.?? Has any history of liver disease. Review of Systems Pertinent positives and negatives are discussed in HPI Physical Exam Vitals & Measurements T:??36.7?C ??(Temporal Artery)?? HR:??114??(Apical)?? BP:??132/91?? SpO2:??98%?? HT:??157.48??cm?? WT:??59.0??kg?? BMI:??23.79?? BSA:??1.61?? General: Well-nourished well-developed female??in no acute distress. HEENT: Head is normocephalic, trachea midline and no cervical lymphadenopathy. ??Sclera are clear. Respiratory: Respirations are even and unlabored. ??Lungs are clear to auscultation. Cardiovascular: Regular rate and rhythm with S1 and S2. Abdomen: Positive bowel sounds x4 quadrants, no masses, no guarding, no tenderness. ??No hepatosplenomegaly. ??Abdomen is soft. Skin: Warm, dry, and pink. ??No spider angiomata, palmar erythema or gynecomastia. Neurological: Alert and oriented x3, speech is clear and gait is steady. Psychological: Pleasant, calm and cooperative. Assessment/Plan 1.??Pancreatic mass??R19.09 New pancreatic mass??noted on CT scan.?? Refer patient to [facility] for endoscopic ultrasound for further evaluation.?? Follow-up with the patient in 6 weeks. ??She is advised to call if she has any problems or concerns. Ordered: Comprehensive Metabolic Panel, Blood, Routine, 11/15/23 10:50:00 EDT, Once, Lab Collect, Fatty liver AH - Alcoholic hepatitis Alcohol dependence Pancreatic mass ADHD ?? 2.??Fatty liver??K76.0 Labs ordered to rule out??hemochromatosis, viral and autoimmune hepatitis.?? Likely fatty liver disease is related to??alcohol abuse. ??Advised to maintain sobriety. ??Congratulated on her efforts??thus far. Ordered: Actin (Smooth Muscle) Antibody LC, Blood, Routine, 11/15/23 10:50:00 EDT, Once, Lab Collect, Fatty liver [id number], Serum LC, Blood, Routine, 11/15/23 10:50:00 EDT, Once, Lab Collect, Fatty liver JAMESON w/Reflex LC, Blood, Routine, 11/15/23 10:50:00 EDT, Once, Lab Collect, Fatty liver Ceruloplasmin LC, Blood, Routine, 11/15/23 10:50:00 EDT, Once, Lab Collect, Fatty liver Comprehensive Metabolic Panel, Blood, Routine, 11/15/23 10:50:00 EDT, Once, Lab Collect, Fatty liver AH - Alcoholic hepatitis Alcohol dependence Pancreatic mass ADHD Ferritin, Blood, Routine, 11/15/23 10:50:00 EDT, Once, Lab Collect, Fatty liver Follow-up Appointment Request [id number], *Est. 12/27/23 +/- 7 days, Future Order, f/u EUS and fatty liver, In Approximately, [facility] Gastro[facility]ology HBsAg Screen LC, Blood, Routine, 11/15/23 10:50:00 EDT, Once, Lab Collect, Fatty liver HCV Antibody Port Deposit to Quant PCR and Genotyping [id number] LC, Blood, Routine, 11/15/23 10:50:00 EDT, Once, Lab Collect, Fatty liver Hep A Ab, Total LC, Blood, Routine, 11/15/23 10:50:00 EDT, Once, Lab Collect, Fatty liver Hep B Core Ab, Tot LC, Blood, Routine, 11/15/23 10:50:00 EDT, Once, Lab Collect, Fatty liver Hepatitis B Surf Ab Quant LC, Blood, Routine, 11/15/23 10:50:00 EDT, Once, Lab Collect, Fatty liver Iron Panel, Blood, Routine, 11/15/23 10:50:00 EDT, Once, Lab Collect, Fatty liver Liver-Kidney Microsomal Ab LC, Blood, Routine, 11/15/23 10:50:00 EDT, Once, Lab Collect, Fatty liver Mitochondrial (M2) Antibody LC, Blood, Routine, 11/15/23 10:50:00 EDT, Once, Lab Collect, Fatty liver ?? 3.??AH - Alcoholic hepatitis??K70.10 Recheck labs today. Ordered: Comprehensive Metabolic Panel, Blood, Routine, 11/15/23 10:50:00 EDT, Once, Lab Collect, Fatty liver AH - Alcoholic hepatitis Alcohol dependence Pancreatic mass ADHD ?? 4.??Alcohol dependence??F10.20 As above. Ordered: Comprehensive Metabolic Panel, Blood, Routine, 11/15/23 10:50:00 EDT, Once, Lab Collect, Fatty liver AH - Alcoholic hepatitis Alcohol dependence Pancreatic mass ADHD ?? 5.??Chronic pancreatitis??K86.1 EUS as above. ??Advised to avoid alcohol use. ?? Medications and Immunizations This Visit Patient returns in 6 weeks. ??Consider EGD??and colonoscopy for??increased stomach wall thickening and??thickening of the??colon suggestive of gastritis and colitis??respectively. Referral Orders Referral Management, Medical Service: Gastroenterology, Reason: EUS- new pancreatic mass, Start:11/15/23 Problem List/Past Medical History Ongoing ADHD AH - Alcoholic hepatitis Alcohol dependence Anxiety Blood pressure elevated without history of HTN Depression Drug dependence Fatty liver Gallbladder disease History of pneumonia HTN (hypertension) Hypoalbuminemia Hypocalcemia Hypomagnesemia Infection Insomnia IUD (intrauterine device) in place Low blood sugar Opioid dependence in remission Pancreatic mass Pancreatic pseudocyst Seizure Syncope Tobacco user Historical Anasarca Hepatic steatosis Pancreatitis Procedure/Surgical History ???Biopsy???Cholecystectomy???EGD (esophagogastroduodenoscopy) gastric outlet reduction???Surgery???Upper gastrointestinal endoscopy Medications Adderall 20 mg oral tablet, 20 mg= 1 tab, Oral, Daily dextroamphetamine-amphetamine 30 mg oral tablet, 30 mg= 1 tab, Oral, Daily ProAir HFA 90 mcg/inh inhalation aerosol, 1 puffs, Inhale, every 4 hr, PRN Suboxone 8 mg-2 mg sublingual film, 1 film, Sublingual, Daily traZODone 50 mg oral tablet, 50 mg= 1 tab, Oral, every night at bedtime, 11 refills triamcinolone 0.1% topical cream, 1 arndy, Topical, BID Allergies codeine??(Bleeding) ciprofloxacin??(Vomiting) Cat Hair??(puffy eye, Sneezing) Flagyl??(GI intolerance) Tylenol??(GI intolerance) traMADol??(GI intolerance) sulfamethoxazole Social History Alcohol Current Electronic Cigarette/Vaping Electronic Cigarette Use: Never. Substance Use Past, Marijuana- Comments: Pt. has HX of chronic opoid drug use. Tobacco Current everyday tobacco user Tobacco Use:. 1/2 PPD per day. Electronically Signed on 11/15/23 11:01 AM Ny Cowan APRN Patient Care team information Care Team Personnel Name: Ana María Daily APRN Position: Physician Member Role: Primary Care Physician Address: Address: [address] [place] [id number] [place] Care Team Related Persons Name: FAB ANGULO Address: Home [address] [place], [place] [phone] [facility]
--- OUTSIDE RECORDS SUMMARY | 2024-02-06 00:56 | XMS_ITS | Continuity of Care Document ---
Author Organization [facility] Ambulatory Clinics Address [address] [place] [address] Care Team Providers Care Silviculture Professor Name Role Phone Ana María Daily APRN Primary Care Physician Encounter [facility] NBR [id number] Date(s): 10/12/23 - 10/12/23 [facility] Ambulatory Clinics [address] [place] [address] [place] Encounter Diagnosis ADHD(Discharge Diagnosis) - 10/12/23 Encounter for medication monitoring(Discharge Diagnosis) - 10/12/23 Discharge Disposition: Home or Self Care Attending Physician: Ana María Daily APRN Allergies, Adverse Reactions, Alerts Substance Reaction Severity Status ciprofloxacin Vomiting Moderate Active codeine Bleeding Severe Active sulfamethoxazole Unknown Active Flagyl GI intolerance Mild Active Tylenol GI intolerance Mild Active traMADol GI intolerance Mild Active Cat Hair puffy eye Sneezing Mild Active Assessment and Plan Extracted from: Title:Office Visit Note - med f/u Author:Ana María Daily APRN Date:10/12/23 1.??ADHD??F90.9 Continue Adderall 30mg in AM, 20mg in the afternoon PDMP consistet ??CSA signed??03/17/2023?? RTC in December for annual Will check UDS today ? Ordered: Urine Drug Screen Clinic POC (RE), 10/12/23 8:23:00 EDT, ADHD Encounter for medication monitoring, 10/12/23 8:23:00 EDT ?? 2.??Encounter for medication monitoring??Z51.81 Will obtain UDS today Ordered: Urine Drug Screen Clinic POC (RE), 10/12/23 8:23:00 EDT, ADHD Encounter for medication monitoring, 10/12/23 8:23:00 EDT ?? RTC in December for annual Future Appointments Functional Status 10/12/23 Other exposure to Infectious Disease Non e Medications Adderall 20 mg oral tablet 20 mg 1 tab, Oral, Daily, Take in the afternoon, # 30 tab, 0 Refill(s), Pharmacy: [facility] #[id number],157.48, cm, 10/12/23 8:05:00 EDT, Height, 61.9, kg, 10/12/23 8:14:00 EDT, Weight Dosing Start Date: 10/13/23 Stop Date: 11/12/23 Status: Ordered dextroamphetamine-amphetamine 30 mg oral tablet 30 mg 1 tab, Oral, Daily, Take In the morning, # 30 tab, 0 Refill(s), Pharmacy: [facility] #[id number], 157.48, cm, 10/12/23 8:05:00 EDT, Height, 61.9, kg, 10/12/23 8:14:00 EDT, Weight Dosing Start Date: 10/13/23 Stop Date: 11/12/23 Status: Ordered ProAir HFA 90 mcg/inh inhalation [...] bedtime, # 30 tab, 11 Refill(s), Pharmacy: [facility] #[id number] Start Date: 11/24/22 Stop Date: 11/19/23 Status: Ordered triamcinolone 0.1% topical cream 1 [...] Completed Upper gastrointestinal endoscopy 4 Completed 1pancreas 54170 3cyst removal 39808 Vital Signs Most recent to oldest [Reference Range]: 1 Peripheral Pulse Rate [60-100 bpm] 102 b pm *HI* (10/12/23 8:05 AM) Blood Pressure [90-140/60-90 mmHg] 128/8 0mmHg (10/12/23 8:05 AM) Mean Arterial Pressure, Cuff [65-140 mmH g] 96 mmHg (10/12/23 8:05 AM) Weight 61.9 kg (10/12/23 8:05 AM) Weight Measured (lbs) 136.466 lb (10/12/23 8:05 AM) Weight Dosing 61.900 kg (10/12/23 8:05 AM) [place] Body Weight Calculated 50.1 kg (10/12/23 8:05 AM) Height 157.48 cm (10/12/23 8:05 AM) Height/Length Measured (inches) 62 inch (10/12/23 8:05 AM) BSA Measured 1.65 m2 (10/12/23 8:05 AM) Body Mass Index 24.96 kg/m2 (10/12/23 8:05 AM) Social History Social History Type Response Tobacco Current everyday tob acco user Tobacco Use:. 1/2 PPD per day. Sex Female Hospital Discharge Instructions Follow Up Care 10/11/2023 15:55:55 With:Ana María Daily APRN Address: [address] [place] [phone] When:1 month Physician Outpatient Note * Ana María Daily APRN: PERFORM Event Display: Office Clinic Note Physician Authored Date: [id number] CLAIRE COOK :1980 Age:43 years Sex:Female Visit Date:10/12/2023 Primary Care Physician: Ana María Daily APRN Chief Complaint Med follow up. History of Present Illness Claire is a 43-year-old female here for med follow up. She Has ADHD and is has been taking Adderall for about 17 years. She is taking 30mg in the AM and 20mg in the afternoon. She takes as prescribed. Takes daily, it her routine. Helpful with concentration, focus and organization. Denies chest pain, SOB, no disturbance to sleep, appetite stable.?? 03/17/2023 last CSA signed.?? Has a monster energy drink this morning BP stable, HR elevated however she notes she just drank a Monster energy drink right before her visit.?? Review of Systems Constitutional: No fevers, no??chills, no??sweats Respiratory: No shortness of breath, no cough Cardiovascular: No Chest pain, no palpitations, no syncope Gastrointestinal: No nausea, no vomiting, no diarrhea, no dark or bloody stool, no change in stool frequency or consistency Integumentary: No rash, pruritus, no abrasions Neurologic: Alert & oriented X 4 Psychiatric: No anxiety, no depression Physical Exam Vitals & Measurements HR:??102??(Peripheral)?? BP:??128/80?? SpO2:??98%?? HT:??157.48??cm?? WT:??61.9??kg?? BMI:??24.96?? BSA:??1.65?? General: Alert and oriented, well nourished, no acute distress Neck: Supple, non-tender, no masses, thyroid symmetric, no lymphadenopathy Lungs: Clear to auscultation, non-labored respiration, speaking in full sentences Heart: Normal rate, regular rhythm, no murmur, gallop or edema Neurologic:Awake, alert and oriented X4 Psychiatric: Cooperative, appropriate mood and affect?? Assessment/Plan 1.??ADHD??F90.9 Continue Adderall 30mg in AM, 20mg in the afternoon PDMP consistet ??CSA signed??03/17/2023?? RTC in December for annual Will check UDS today Ordered: Urine Drug Screen Clinic POC (RE), 10/12/23 8:23:00 EDT, ADHD Encounter for medication monitoring, 10/12/23 8:23:00 EDT ?? 2.??Encounter for medication monitoring??Z51.81 Will obtain UDS today Ordered: Urine Drug Screen Clinic POC (RE), 10/12/23 8:23:00 EDT, ADHD Encounter for medication monitoring, 10/12/23 8:23:00 EDT ?? RTC in December for annual Follow Up Instructions With When Contact Information Ana María Daily APRN Within 1 month [address] [place] [address] [phone] Additional Instructions: Problem List/Past Medical History Ongoing ADHD Anxiety Blood pressure elevated without history of HTN Depression Drug dependence Gallbladder disease Hepatic steatosis HTN (hypertension) Infection IUD (intrauterine device) in place Low blood sugar Pancreatitis Seizure Syncope Tobacco user Historical Procedure/Surgical History ???Biopsy???Cholecystectomy???EGD (esophagogastroduodenoscopy) gastric outlet reduction???Surgery???Upper [...] 11 refills triamcinolone 0.1% topical cream, 1 randy, Topical, BID Allergies codeine??(Bleeding) ciprofloxacin??(Vomiting) Cat Hair??(puffy eye, Sneezing) Flagyl??(GI intolerance) Tylenol??(GI intolerance) traMADol??(GI intolerance) sulfamethoxazole Social History Alcohol Current Electronic Cigarette/Vaping Electronic Cigarette Use: Never. Substance Use Past- Comments: Pt. has HX of chronic opoid drug use. Tobacco Current everyday tobacco user Tobacco Use:. 1/2 PPD per day. Electronically Signed on 10/12/23 08:34 AM Ana María Daily APRN Patient Care team information Care Team Personnel Name: Ana María Daily APRN Position: Physician Member Role: Primary Care Physician Address: Address: [address] [place] [phone] [place] Care Team Related Persons Name: KEV MU Address: Home [address] [place], [place] [id number] [facility]
--- OUTSIDE RECORDS SUMMARY | 2024-02-06 00:56 | XMS_ITS | Continuity of Care Document ---
Author Organization [facility] Address [address] [place] [address] Care Team Providers Care School Guidance Counselor Name Role Phone Killian SPRAGUERick Lombardoah Dyan Primary Care Physician Encounter [facility] NBR [id number] Date(s): 10/18/23 - 10/18/23 [facility] [address] [place] [address] [place] Discharge Disposition: Home Allergies, Adverse Reactions, Alerts Substance Reaction Severity Status ciprofloxacin Vomiting Moderate Active codeine Bleeding Severe Active sulfamethoxazole Unknown Active Tylenol GI intolerance Mild Active traMADol GI intolerance Mild Active Cat Hair puffy eye Sneezing Mild Active Flagyl GI intolerance Mild Active Assessment and Plan Future Appointments Medications Adderall 20 mg oral tablet 20 mg 1 tab, Oral, Daily, Take in the afternoon, # 30 tab, 0 Refill(s), Pharmacy: [facility],157.48, cm, 10/12/23 8:05:00 EDT, Height, 61.9, kg, 10/12/23 8:14:00 EDT, Weight Dosing Start Date: 10/13/23 Stop Date: 11/12/23 Status: Ordered dextroamphetamine-amphetamine 30 mg oral tablet 30 mg 1 tab, Oral, Daily, Take In the morning, # 30 tab, 0 Refill(s), Pharmacy: [facility], 157.48, cm, 10/12/23 8:05:00 EDT, Height, [...] bedtime, # 30 tab, 11 Refill(s), Pharmacy: [facility], 157.48, cm, 10/12/23 8:05:00 EDT, Height, [...] Completed Upper gastrointestinal endoscopy 4 Completed 1pancreas 31858 3cyst removal 68178 Social History Social History Type Response Tobacco Current everyday tob acco user Tobacco Use:. 1/2 PPD per day. Sex Female Patient Care team information Care Team Personnel Name: Ana María Daily APRN Position: Physician Member Role: Primary Care Physician Address: Address: [address] [place] [address] [place] Care Team Related Persons Name: FAB ANGULO Address: Home [address] [phone] [facility]
--- OUTSIDE RECORDS SUMMARY | 2024-02-06 00:56 | XMS_ITS | Referral Summary ---
Author Organization [facility] Address [address] [place] [address] Care Team Providers Care Lead Informatica Developer Name Role Phone Unavailable Primary Care Provider Unavailabl e Encounters Date Type Department Care Team Description 01/27/2024 Specialty Pharmacy [facility] [address] [place], [place] [address] Stacie Joseph RPH Set up initial fill for Addiction Medicine, Patient Education for Addiction Medicine, Prospective Review for Addiction Medicine 01/27/2024 Telephone [facility] [address] [place], [place] [phone] Stacie Joseph RPH Medication Management 01/19/2024 Lab Requisition [facility] [address] [address] Outr Resulting Lab, Provider 01/19/2024 Lab Requisition [facility] [address] [address] Outr Resulting Lab, Provider 01/19/2024 Lab Requisition [facility] [address] [address] Outr Resulting Lab, Provider 01/19/2024 Lab Requisition [facility] [address] [address] Outr Resulting Lab, Provider from Last 3 Months Allergies No known active allergies Medications Medication Sig Dispensed Refills Start Date End Date Status buprenorphine (BRIXADI) 64 mg/0.18 mL solution, extended rel syringe Inject 64 mg into the skin every 28 days. Daily Max: 64 mg Active dextroamphetamine -amphetamine (ADDERALL) 20 mg tablet Take 1 Tablet by mouth daily. afternoon Daily Max: 20 mg 01/12/2024 Active dextroamphetamine -amphetamine (ADDERALL) 30 mg tablet Take 1 Tablet by mouth every morning. Daily Max: 30 mg 01/12/2024 Active furosemide (LASIX) 20 mg tablet Take 1 Tablet by mouth daily. 10/31/2023 Active potassium chloride 20 mEq tablet extended release Take 1 Tablet by mouth daily. 01/19/2024 Active spironolactone (ALDACTONE) 50 mg tablet Take 1 Tablet by mouth daily. 01/19/2024 Active traZODone (DESYREL) 50 mg tablet Take 1 Tablet by mouth at bedtime. 11/23/2023 Active LORazepam (ATIVAN) 1 mg tablet Take 1 Tablet by mouth 3 times daily. Daily Max: 3 mg 10/28/2023 01/31/2024 Discontinued (Therapy completed) Active Problems Problem Noted Date Diagnosed Date Opioid use disorder 01/31/2024 Social History Tobacco Use Types Packs/Day Years Used Date Smoking Tobacco: Never Assessed Sex and Gender Information Value Date Recorded Sex Assigned at Not on file Gender Identity Not on file Sexual Orientation Not on file Plan of Treatment Not on file Procedures Procedure Name Priority Date/Time Associated Diagnosis Comments HCV RNA DETECT QUANT Today 01/19/2024 13:18 EDT ACUTE HEPATITIS PROFILE Routine 01/19/2024 13:18 EDT HIV 1/2 ANTIGEN AND ANTIBODY, 4TH GENERATION Routine 01/19/2024 13:18 EDT HCV RNA DETECT QUANT Today 01/19/2024 9:45 EDT HIV 1/2 ANTIGEN AND ANTIBODY, 4TH GENERATION Routine 01/19/2024 9:45 EDT ACUTE HEPATITIS PROFILE Routine 01/19/2024 9:45 EDT from Last 3 Months Results * HCV RNA DETECT QUANT (01/19/2024 13:18 EDT) Only the most recent of2 resultswithin the time period is included. HCV RNA Qualitative Undetected Undetected 01/21/2024 13:[address] [facility] Blood VENOUS BLOOD / Unknown 01/19/2024 13:18 EDT 01/19/2024 21:45 EDT [address] [facility] - 01/21/2024 13:12 EDT The quantification range of this assay is 15 IU/mL to 100,000,000 IU/mL. Testing was performed using the Krysta HCV test ([employer] with the krysta [id number] System. Provider Outr Resulting Lab CHEMISTRY & BLOOD GAS ORDERABLES Performing Organization Address City/[facility]/ZIP Co de Phone Number [facility] [address], [place] [phone] * (ABNORMAL) ACUTE HEPATITIS PROFILE (01/19/2024 13:18 EDT) Only the most recent of2 resultswithin the time period is included. Pathologist [facility] Hep B Surface Ag Negative Negative 01/20/2024 11:[address] [facility] Hep C Antibody Reactive(A) Negative 11:[address] [facility] Comment: Supplemental testing for HCV RNA is ordered to rule out active HCV infection. Index value ??is >=1.00 and <11.00 Hepatitis A Antibody, IgM Negative Negative 01/20/2024 11:[address] [facility] Comment:The results of this assay can be falsely lowered due to the consumption of Biotin. Hepatitis B Core Ab, Total Negative Negative 01/20/2024 11:[address] [facility] Blood VENOUS BLOOD / Unknown 01/19/2024 13:18 EDT 01/19/2024 21:45 EDT Provider Outr Resulting Lab CHEMISTRY & BLOOD GAS ORDERABLES Performing Organization Address [facility]/ZIP Co de Phone Number [facility] [address], [place] [phone] * HIV 1/2 ANTIGEN AND ANTIBODY, 4TH GENERATION (01/19/2024 13:18 EDT) Only the most recent of2 resultswithin the time period is included. Pathologist [facility] HIV 1 and 2 Antibody/p24 Antigen, 4th Generation Negative Negative 01/20/2024 11:[address] [facility] Comment:If acute HIV-1 infec tion is suspected in a high risk patient, submit plasma specimen for HIV-1 RNA quantitation test. Blood VENOUS BLOOD / Unknown 01/19/2024 13:18 EDT 01/19/2024 21:46 EDT [address] [facility] - 01/20/2024 11:01 EDT Fourth Generation assay performed on the Siemens Centaur XPT. Provider Outr Resulting Lab IMMUNOLOGY A ND SEROLOGY ORDERABLES [facility] [address] [place] [address] from Last 3 Months
--- OUTSIDE RECORDS SUMMARY | 2024-02-06 00:56 | XMS_ITS | Continuity of Care Document ---
Author Organization [facility] Address [address] [place] [address] Care Team Providers Care Wire Saw Operator Name Role Phone Ana María Daily APRN Primary Care Physician [phone] Encounter [facility] NBR [id number] Date(s): 12/01/23 - 12/01/23 [facility] [address] [place] [address] [place] Discharge Disposition: Home Allergies, Adverse Reactions, Alerts Substance Reaction Severity Status ciprofloxacin Vomiting Moderate Active codeine Bleeding Severe Active sulfamethoxazole Unknown Active Flagyl GI intolerance Mild Active Tylenol GI intolerance Mild Active traMADol GI intolerance Mild Active Cat Hair puffy eye Sneezing Mild Active Assessment and Plan Future Appointments Future Scheduled Tests Laboratory* HIV-1/2 With Rfx ([facility]) 11/17/23 * HCV RNA by PCR, Qn Rfx Gill 11/17/23 Medications Adderall 20 mg oral tablet 20 mg 1 tab, Oral, Daily, Take in the afternoon, # 30 tab, 0 Refill(s), Pharmacy: [facility],157.48, cm, 10/12/23 8:05:00 EDT, Height, 61.9, kg, 10/12/23 8:14:00 EDT, Weight Dosing Start Date: 11/09/23 Stop Date: 12/09/23 Status: Ordered dextroamphetamine-amphetamine 30 mg oral tablet 30 mg 1 tab, Oral, Daily, Take In the morning, # 30 tab, 0 Refill(s), Pharmacy: [facility], 157.48, cm, 10/12/23 8:05:00 EDT, Height, [...] bedtime, # 30 tab, 11 Refill(s), Pharmacy: [facility] #[facility], 157.48, cm, 10/12/23 8:05:00 EDT, Height, 61.9, kg, 10/12/23 8:14:00 EDT, Weight Dosing Start Date: 10/13/23 Stop Date: 10/07/24 Status: Ordered triamcinolone 0.1% topical cream 1 randy, Topical, BID, # 1 g, 0 Refill(s), Pharmacy: [facility] #93, 157.48, cm, 11/15/23 8:56:00 EDT, Height, [...] elevated without history of HTN Confirmed Active Positive hepatitis C antibody test Confirmed Active History of pneumonia Confirmed Active [...] Completed Upper gastrointestinal endoscopy 4 Completed 1pancreas 67563 3cyst removal 54978 Social History Social History Type Response Tobacco Current everyday tob acco user Tobacco Use:. 1/2 PPD per day. Sex Female Patient Care team information Care Team Personnel Name: Ana María Daily APRN Position: Physician Member Role: Primary Care Physician Address: Address: [address] [place] [phone] [place] Care Team Related Persons Name: FAB ANGULO Address: [address] [id number] [facility]
--- OUTSIDE RECORDS SUMMARY | 2024-02-06 00:56 | XMS_ITS | Encounter Summary ---
Author Organization [facility] Address [address] [place] [address] Care Team Providers Care Appeals Examiner Name Role Phone Unavailable Primary Care Provider Unavailabl e Encounter Details Date Type Department Care Team (Late st Contact Info) Description 10/27/2023 Lab Requisition [facility] Pathology & Laboratory Medicine - [facility] [address] [place], [place] [phone] Outr Resulting Lab, Provider Social History Tobacco Use Types Packs/Day Years Used Date Smoking Tobacco: Never Assessed Sex and Gender Information Value Date Recorded Sex Assigned at Not on file Gender Identity Not on file Sexual Orientation Not on file documented as of this encounter Plan of Treatment Not on file documented as of this encounter Procedures Procedure Name Priority Date/Time Associated Diagnosis Comments POTASSIUM, URINE RANDOM Routine 10/27/2023 3:02 EDT documented in this encounter Results * POTASSIUM, URINE RANDOM (10/27/2023 3:02 EDT) Potassium, Urine 3.6 See Note mmol/L 10/27/2023 21:56 EDT [facility] Comment: NOTE: Reference range has not been established for potassium concentration in random urine specimens. Urine URINE / Unknown 10/27/2023 3 :02 EDT 10/27/2023 21:30 EDT Provider Outr Resulting Lab URINALYSIS O RDERABLES [facility] [address] [place], [place] [phone] documented in this encounter Visit Diagnoses Not on filedocumented in this encounter
--- OUTSIDE RECORDS SUMMARY | 2024-02-06 00:56 | XMS_ITS | Encounter Summary ---
Author Organization [facility] Address [address] [place] [address] Care Team Providers Care Fire Hydrant Mechanic Name Role Phone Unavailable Primary Care Provider Unavailabl e Encounter Details Date Type Department Care Team (Latest Contact Info) Description 01/27/2024 Specialty Pharmacy [facility] [address] [place] [address] Stacie Joseph RPH Set up initial fill for Addiction Medicine, Patient Education for Addiction Medicine, Prospective Review for Addiction Medicine Social History Tobacco Use Types Packs/Day Years Used Date Smoking Tobacco: Never Assessed Sex and Gender Information Value Date Recorded Sex Assigned at Not on file Gender Identity Not on file Sexual Orientation Not on file documented as of this encounter Progress Notes * Diane Ocasio - 01/27/2024 1024 EDT Prescription Receipt by [facility] Date Received: 01/27/24 Medication: Brixadi 64mg Provider: Georgnia Leyva Provider Phone number: [phone] [facility]: Addiction Med Comments: non-form, pt has to try Zubsolv first PA Status: Pending Prescription copy available in scans: YES Relevant clinical documents in scans (if applicable): YES, requested Routed to appropriate Pharmacist: YES [facility]: [phone] * Stacie Joseph RPH - 01/27/2024 1024 EDT Dolly Alexis is a 43 y.o. female -- pharmacist clinical review of initial prescription for Buprenorphine ER injection Treatment information: Prescriber: Leticia Leyva Prescriber Contact Info: [facility], Clinic note in Epic scans: yes Date: 01/28/24 Sublingual Buprenorphine Naive: No Transmucosal Buprenorphine Dose: 8 mg/day Buprenorphine ER Formulation: Brixadi Initial Dose: 64 mg subcutaneous monthly REMS requirements met: Yes Naloxone prescribed: N/A Treatment goals: Engage in OUD treatment, reduce cravings, avoid withdrawal symptoms Baseline labs: Not available - outside provider, outside lab Current medications: Outpatient Encounter Medications as of 01/27/2024 Medication Sig buprenorphine (BRIXADI) 64 mg/0.18 mL solution, extended rel syringe Inject 64 mg into the skin every 28 days. Daily Max: 64 mg dextroamphetamine-amphetamine (ADDERALL) 20 mg tablet Take 1 Tablet by mouth daily. afternoon DailyMax: 20 mg dextroamphetamine-amphetamine (ADDERALL) 30 mg tablet Take 1 Tablet by mouth every morning. Daily Max: 30 mg furosemide (LASIX) 20 mg tablet Take 1 Tablet by mouth daily. [DISCONTINUED] LORazepam (ATIVAN) 1 mg tablet Take 1 Tablet by mouth 3 times daily. Daily Max: 3 mg potassium chloride 20 mEq tablet extended release Take 1 Tablet by mouth daily. spironolactone (ALDACTONE) 50 mg tablet Take 1 Tablet by mouth daily. traZODone (DESYREL) 50 mg tablet Take 1 Tablet by mouth at bedtime. No facility-administered encounter medications on file as of 01/27/2024. Allergies: NKDA Drug Interactions and Management Plan: Medication list source: [facility] chart review, [facility] information, and [facility] DDI with current medication list checked Drug-drug interactions identified: No DDIs requiring intervention Comorbidities: reviewed Stacie Joseph, PharmD (she/her) Public Health Sanitarian Pharmacist [facility] 01/31/2024 documented in this encounter Plan of Treatment Not on file documented as of this encounter Visit Diagnoses Not on filedocumented in this encounter Discontinued Medications Medication Sig Discontinue Reason Start Date End Da te LORazepam (ATIVAN) 1 mg tablet Take 1 Tablet by mouth 3 times daily. Daily Max: 3 mg Therapy completed 10/28/2023 01/31/2024 documented as of this encounter Historical Medications * This list may reflect changes made after this encounter. Medication Sig Dispensed Refills Start Date End Date traZODone (DESYREL) 50 mg tablet Take 1 Tablet by mouth at bedtime. 11/23/2023 spironolactone (ALDACTONE) 50 mg tablet Take 1 Tablet by mouth daily. 01/19/2024 potassium chloride 20 mEq tablet extended release Take 1 Tablet by mouth daily. 01/19/2024 furosemide (LASIX) 20 mg tablet Take 1 Tablet by mouth daily. 10/31/2023 dextroamphetamine-amphe tamine (ADDERALL) 30 mg tablet Take 1 Tablet by mouth every morning. Daily Max: 30 mg 01/12/2024 dextroamphetamine-amphe tamine (ADDERALL) 20 mg tablet Take 1 Tablet by mouth daily. afternoon Daily Max: 20 mg 01/12/2024 buprenorphine (BRIXADI) 64 mg/0.18 mL solution, extended rel syringe Inject 64 mg into the skin every 28 days. Daily Max: 64 mg LORazepam (ATIVAN) 1 mg tablet Take 1 Tablet by mouth 3 times daily. Daily Max: 3 mg 10/28/2023 01/31/2024 added in this encounter
--- OUTSIDE RECORDS SUMMARY | 2024-02-06 00:56 | XMS_ITS | Encounter Summary ---
Author Organization [facility] Address [address] [place] [address] Care Team Providers Care Rehab Manager Name Role Phone Unavailable Primary Care Provider Unavailabl e Encounter Details Date Type Department Care Team (Late st Contact Info) Description 10/27/2023 Lab Requisition [facility] Pathology & Laboratory Medicine - [facility] [address] [place] [address] Outr Resulting Lab, Provider Social History Tobacco [...] Procedure Name Priority Date/Time Associated Diagnosis Comments CALCIUM, IONIZED Routine 10/27/2023 4:22 EDT documented in this encounter Results * (ABNORMAL) CALCIUM, IONIZED (10/27/2023 4:22 EDT) Calcium, Ionized 0.96(L) 1.14 - 1.35 mmol/L 10/27/2023 17:43 EDT [facility] Comment: Tube not filled to capacity. Ionized calcium results may be falsely decreased. Interpret results with caution. Testing performed on heparinized plasma. Results may be biased 5% lower than that of whole blood. Blood VENOUS BLOOD / Unknown 10/27/2023 4:22 EDT 10/27/2023 17:31 EDT Provider Outr Resulting Lab CHEMISTRY & BLOOD GAS ORDERABLES [facility] [address] [place] [address] documented in this encounter Visit Diagnoses Not on filedocumented in this encounter
--- OUTSIDE RECORDS SUMMARY | 2024-02-06 00:56 | XMS_ITS | Continuity of Care Document ---
Author Organization [facility] Address [address] [place] [address] Encounter [facility] NBR [id number] Date(s): 05/05/22 - 05/05/22 [facility] [address] [place], [place] [address] Encounter Diagnosis Screening for breast cancer(Discharge Diagnosis) - 05/05/22 Screening for cervical cancer(Discharge Diagnosis) - 05/05/22 Encounter for vaccination(Discharge Diagnosis) - 05/05/22 ADHD(Discharge Diagnosis) - 05/05/22 Opioid abuse, in remission(Discharge Diagnosis) - 05/05/22 Encounter for sterilization education(Discharge Diagnosis) - 05/05/22 Discharge Disposition: Home or Self Care Attending Physician: Kelle Geiger APRN Allergies, Adverse Reactions, Alerts Substance Reaction Severity Status ciprofloxacin Vomiting Moderate Active codeine Bleeding Severe Active sulfamethoxazole Unknown Active Flagyl GI intolerance Mild Active Tylenol GI intolerance Mild Active traMADol GI intolerance Mild Active Cat Hair puffy eye Sneezing Mild Active Assessment and Plan Future Appointments Future Scheduled Tests Radiology* MG Mammo Screening Bilateral 05/05/22 Functional Status 05/05/22 Other exposure to Infectious Disease Non e Medications Adderall XR 20 mg oral capsule, extended release 20 mg 1 tab, Oral, BID, PRN anxiety, # 60 tab, 0 Refill(s), Pharmacy: [id number] Start Date: 05/05/22 Stop Date: 06/04/22 Status: Ordered ProAir HFA 90 mcg/inh inhalation [...] every night at bedtime, # 30 tab, 6 Refill(s), Pharmacy: [id number] Start Date: 05/05/22 Stop Date: 12/01/22 Status: Ordered triamcinolone 0.1% topical cream 1 randy, Topical, BID, # 60 g, 0 Refill(s) Start Date: 05/04/22 Stop Date: 05/18/22 Status: Ordered Problem List Condition Confirmation Course Effective Dates Status Health St atus Informant Anxiety Confirmed Active ADHD Confirmed Active Depression Confirmed Active Infection 1 Confirmed Active Gallbladder disease Confirmed Active Drug dependence Confirmed Active HTN (hypertension) Confirmed Active Low [...] Completed Upper gastrointestinal endoscopy 4 Completed 1pancreas 33698 3cyst removal 30053 Vital Signs Most recent to oldest [Reference Range]: 1 Temperature Tympanic [36.6-37.9 Deg C] 3 6.4 Deg C *LOW* (05/05/22 9:23 AM) Peripheral Pulse Rate [60-100 bpm] 101 b pm *HI* (05/05/22 9:23 AM) Blood Pressure [90-140/60-90 mmHg] 170/9 8mmHg *HI* (05/05/22 9:23 AM) Weight 57.8 kg (05/05/22 9:23 AM) Weight Measured (lbs) 127.427 lb (05/05/22 9:23 AM) Social History Social History Type Response Tobacco Current everyday tob acco user Tobacco Use:. 1/2 PPD per day. Sex Female
--- OUTSIDE RECORDS SUMMARY | 2024-02-06 00:56 | XMS_ITS | Continuity of Care Document ---
Author Organization [facility] Address [address] [place] [address] Care Team Providers Care Showroom Sales Consultant Name Role Phone Ana María Daily APRN Primary Care Physician [phone] Encounter [facility] NBR [id number] Date(s): 11/15/23 - 11/15/[address] [facility] [address] [place] [address] [place] Discharge Disposition: Home or Self Care Attending Physician: SHAYNA RIBEIRO APRN Allergies, Adverse Reactions, Alerts Substance Reaction [...] afternoon, # 30 tab, 0 Refill(s), Pharmacy: [facility],157.48, cm, 10/12/23 8:05:00 EDT, Height, 61.9, kg, 10/12/23 8:14:00 EDT, Weight Dosing Start Date: 11/09/23 Stop Date: 12/09/23 Status: Ordered dextroamphetamine-amphetamine 30 mg oral tablet 30 mg 1 tab, Oral, Daily, Take In the morning, # 30 tab, 0 Refill(s), Pharmacy: [facility] #93, 157.48, cm, 10/12/23 8:05:00 EDT, Height, [...] bedtime, # 30 tab, 11 Refill(s), Pharmacy: [facility] #93, 157.48, cm, 10/12/23 8:05:00 EDT, Height, 61.9, kg, 10/12/23 8:14:00 EDT, Weight Dosing Start Date: 10/13/23 Stop Date: 10/07/24 Status: Ordered triamcinolone 0.1% topical cream 1 randy, Topical, BID, # 1 g, 0 Refill(s), Pharmacy: [facility] #93, 157.48, cm, 11/15/23 8:56:00 EDT, Height, [...] Completed Upper gastrointestinal endoscopy 4 Completed 1pancreas 64575 3cyst removal 42[address] Vital Signs Most recent to oldest [Reference Range]: 1 Temperature Tympanic [36.6-38.1 Deg C] 3 5.7 Deg C *LOW* (11/15/23 8:56 AM) Apical Heart Rate [60-100 bpm] 98 bpm (11/15/23 8:56 AM) Blood Pressure [90-140/60-90 mmHg] 120/8 1mmHg (11/15/23 8:56 AM) Mean Arterial Pressure, Cuff [65-140 mmH g] 94 mmHg (11/15/23 8:56 AM) Weight 58.06 kg (11/15/23 8:56 AM) Weight Measured (lbs) 128 lb (11/15/23 8:56 AM) Weight Dosing 58.060 kg (11/15/23 8:56 AM) [place] Body Weight Calculated 50.1 kg (11/15/23 8:56 AM) Height 157.48 cm (11/15/23 8:56 AM) Height/Length Measured (inches) 62 inch (11/15/23 8:56 AM) BSA Measured 1.59 m2 (11/15/23 8:56 AM) Body Mass Index 23.41 kg/m2 (11/15/23 8:56 AM) Social History Social History Type Response Tobacco Current everyday tob acco user Tobacco Use:. 1/2 PPD per day. Sex Female Patient Care team information Care Team Personnel Name: Ana María Daily APRN Position: Physician Member Role: Primary Care Physician Address: Address: [address] [place] [phone] [place] Care Team Related Persons Name: FAB ANGULO Address: Home [address] [facility] [address] [place], [place] [id number] [facility]
--- OUTSIDE RECORDS SUMMARY | 2024-02-06 00:56 | XMS_ITS | Encounter Summary ---
Author Organization [facility] Address [address] [place] [address] Care Team Providers Care Reservations Sales Supervisor Name Role Phone Unavailable Primary Care Provider Unavailabl e Encounter Details Date Type Department Care Team (Late st Contact Info) Description 01/19/2024 Lab Requisition [facility] Pathology & Laboratory Medicine - [facility] [address], [place] [address] Outr Resulting Lab, Provider Social History Tobacco [...] ACUTE HEPATITIS PROFILE Routine 01/19/2024 13:18 EDT documented in this encounter Results * HCV RNA DETECT QUANT (01/19/2024 13:18 EDT) HCV RNA Qualitative Undetected Undetected 01/21/2024 13:12 EDT [facility] Blood VENOUS BLOOD / Unknown 01/19/2024 13:18 EDT 01/19/2024 21:45 EDT Narrative [facility] - 01/21/2024 13:12 EDT The quantification range of this assay is 15 IU/mL to 100,000,000 IU/mL. Testing was performed using the Krysta HCV test ([employer] with the krysta 6800 System. Provider Outr Resulting Lab CHEMISTRY & BLOOD GAS ORDERABLES [facility] [address], [place] [address] * (ABNORMAL) ACUTE HEPATITIS PROFILE (01/19/2024 13:18 EDT) Hep B Surface Ag Negative Negative 01/20/2024 11:59 EDT [facility] Hep C Antibody Reactive(A) Negative 11:59 EDT [facility] Comment: Supplemental testing for HCV RNA is ordered to rule out active HCV infection. Index value ??is >=1.00 and <11.00 Hepatitis A Antibody, IgM Negative Negative 01/20/2024 11:59 EDT [facility] Comment:The results of this assay can be falsely lowered due to the consumption of Biotin. Hepatitis B Core Ab, Total Negative Negative 01/20/2024 11:59 EDT [facility] Blood VENOUS BLOOD / Unknown 01/19/2024 13:18 EDT 01/19/2024 21:45 EDT Provider Outr Resulting Lab CHEMISTRY & BLOOD GAS ORDERABLES [facility] [address], [place] [id number] documented in this encounter Visit Diagnoses Not on filedocumented in this encounter
--- OUTSIDE RECORDS SUMMARY | 2024-02-06 00:56 | XMS_ITS | Continuity of Care Document ---
Author Organization [facility] Address [address] [place] [id number] Care Team Providers Care Open Hearth Laborer Name Role Phone Ana María Daily APRN Primary Care Physician [phone] Encounter [facility] NBR [id number] Date(s): 11/15/23 - 11/15/[address] [address]- [place] Encounter Diagnosis Fatty liver(Discharge Diagnosis) - 11/15/23 AH - Alcoholic hepatitis(Discharge Diagnosis) - 11/15/23 Alcohol dependence(Discharge Diagnosis) - 11/15/23 Pancreatic mass(Discharge Diagnosis) - 11/15/23 ADHD(Discharge Diagnosis) - 11/15/23 Discharge Disposition: Home or Self Care Attending Physician: Ny Cowan APRN Admitting Physician: Ny Cowan APRN Referring Physician: Ny Cowan APRN Allergies, Adverse Reactions, Alerts Substance Reaction Severity Status ciprofloxacin Vomiting Moderate Active codeine Bleeding Severe Active sulfamethoxazole Unknown Active Flagyl GI intolerance Mild Active Tylenol GI intolerance Mild Active traMADol GI intolerance Mild Active Cat Hair puffy eye Sneezing Mild Active Assessment and Plan Future Appointments Diagnostic Tests Pending * Liver-Kidney Microsomal Ab LC 11/15/23 * HCV Antibody Garvin to Quant PCR and Genotyping [id number] LC 11/15/23 * Actin (Smooth Muscle) Antibody LC 11/15/23 * Mitochondrial (M2) Antibody LC 11/15/23 Medications Adderall 20 mg oral tablet 20 mg 1 tab, Oral, Daily, Take in the afternoon, # 30 tab, 0 Refill(s), Pharmacy: [facility] #93,157.48, cm, 10/12/23 8:05:00 EDT, Height, 61.9, kg, 10/12/23 8:14:00 EDT, Weight Dosing Start Date: 11/09/23 Stop Date: 12/09/23 Status: Ordered dextroamphetamine-amphetamine 30 mg oral tablet 30 mg 1 tab, Oral, Daily, Take In the morning, # 30 tab, 0 Refill(s), Pharmacy: [facility] #93, 157.48, cm, 10/12/23 8:05:00 EDT, Height, [...] bedtime, # 30 tab, 11 Refill(s), Pharmacy: [facility] #93, 157.48, cm, 10/12/23 8:05:00 EDT, Height, 61.9, kg, 10/12/23 8:14:00 EDT, Weight Dosing Start Date: 10/13/23 Stop Date: 10/07/24 Status: Ordered triamcinolone 0.1% topical cream 1 randy, Topical, BID, # 1 g, 0 Refill(s), Pharmacy: [facility] #93, 157.48, cm, 11/15/23 8:56:00 EDT, Height, [...] Completed Upper gastrointestinal endoscopy 4 Completed 1pancreas 03985 3cyst removal 16983 Results Laboratory List Name Date Comprehensive Metabolic Panel (CMP) 11/14 Ferritin 11/15/23 Iron Panel 11/15/23 JAMESON w/Reflex LC 11/15/23 Cgbgi-4-Mlxdryepxld, Serum LC 11/15/23 Ceruloplasmin LC 11/15/23 HBsAg Screen LC (Hepatitis B Surface Antigen (HBsAg) Screen, Qualitative [id number] LC) 11/15/23 Hep A Ab, Total LC 11/15/23 Hep B Core Ab, Tot LC 11/15/23 Hepatitis B Surf Ab Quant LC (Hepatitis B Surface Antibody, Quantitative [id number] LC) 11/15/23 Most recent to oldest [Reference Range]: 1 BUN [7-25 mg/dL] 6 mg/dL *LOW* (11/15/23 10:59 AM) Glucose Level [70-109 mg/dL] 145 mg/dL *HI* (11/15/23 10:59 AM) Potassium Level [3.5-5.1 mmol/L] 3.2 mmo l/L *LOW* (11/15/23 10:59 AM) AST [13-39 IntlUnit/L] 79 IntlUnit/L *HI* (11/15/23 10:59 AM) ALT [7-52 IntlUnit/L] 50 IntlUnit/L (11/15/23 10:59 AM) Osmolality [275-295 mOsm/kg] 282 mOsm/kg (11/15/23 10:59 AM) Sodium Level [136-145 mmol/L] 141 mmol/L (11/15/23 10:59 AM) Calcium Level [8.6-10.3 mg/dL] 8.3 mg/dL *LOW* (11/15/23 10:59 AM) Albumin Level [3.5-5.7 g/dL] 2.9 g/dL *LOW* (11/15/23 10:59 AM) Protein Total [6.4-8.9 g/dL] 5.9 g/dL *LOW* (11/15/23 10:59 AM) Iron Sat [20-55 %] 39 % (11/15/23 10:59 AM) Bilirubin Total [0.3-1.0 mg/dL] 1.0 mg/d L (11/15/23 10:59 AM) Transferrin [203-362 mg/dL] 178 mg/dL *LOW* (11/15/23 10:59 AM) Alk Phos [34-104 IntlUnit/L] 180 IntlUni t/L *HI* (11/15/23 10:59 AM) Ferritin Level [11.0-307.0 ng/mL] 156.8 ng/mL (11/15/23 10:59 AM) CO2 [21-31 mmol/L] 26 mmol/L (11/15/23 10:59 AM) TIBC 249 *NA* (11/15/23 10:59 AM) Iron [50-212 mcg/dL] 97 mcg/dL (11/15/23 10:59 AM) Chloride Level [98-107 mmol/L] 106 mmol/ L (11/15/23 10:59 AM) A/G Ratio [1.0-2.5 g/dL] 1.0 g/dL (11/15/23 10:59 AM) BUN/Creat Ratio [8.0-20.0] 12.0 (11/15/23 10:59 AM) Globulin [2.3-3.5 g/dL] 3.0 g/dL (11/15/23 10:59 AM) Hepatitis B Surf Ab Qnt LC [Immunity>9.9 mIntlUnit/mL] 9.5 mIntlUnit/mL 1 *LOW* (11/15/23 10:56 AM) Hep A Ab, Ttl LC [Negative] Negative 2 *NA* (11/15/23 10:56 AM) Hep B Core Ab, Tot LC [Negative] Negativ e 3 *NA* (11/15/23 10:56 AM) JAMESON Direct LC [Negative] Negative 4 *NA* (11/15/23 10:56 AM) Ceruloplasmin LC [19.0-39.0 mg/dL] 21.2 mg/dL 5 *NA* (11/15/23 10:56 AM) Earmb-0-Fhczfsfeuql LC [101-187 mg/dL] 1 70 mg/dL 6 *NA* (11/15/23 10:56 AM) Hep B Surf Ag Scr LC [Negative] Negative 7 *NA* (11/15/23 10:56 AM) Creatinine Level [0.60-1.20 mg/dL] 0.50 mg/dL *LOW* (11/15/23 10:59 AM) Anion Gap [3.0-12.0] 9.0 (11/15/23 10:59 AM) eGFR CKD-EPI [>=60 mL/min/1.73 m2] 120 m L/min/1.73 m2 (11/15/23 10:59 AM) 1Result Comment: Verified by repeat analysis Status of Immunity Anti-HBs Level Inconsistent with Immunity 0.0 - 9.9 Consistent with Immunity >9.9 Performed At: [address] [id number] Tommy Gordon MD Ph:[phone] 2Result Comment: Comment: The HAV total antibody assay detects both IgG and IgM but does not differentiate between them. A negative result suggests susceptibility to infection. A positive result could be due to vaccination, previously resolved infection or active infection. Testing for HAV IgM should be performed if active HAV infection is suspected. [facility] offers profiles that will automatically reflex positive HAV total antibody results to IgM (e.g., panel #[id number] HAV Antibody w/ Rfx). Performed At: [address] [id number] Tommy Gordon MD Ph:[phone] 3Result Comment: Performed At: [address] [id number] Tommy Gordon MD Ph:[phone] 4Result Comment: Performed At: [address] [id number] Tommy Gordon MD Ph:[phone] 5Result Comment: Performed At: [facility] [address] [place], [place] [id number] Tommy Gordon MD Ph:[phone] 6Result Comment: Performed At: [facility] [address] [place], [place] [id number] Tommy Gordon MD Ph:[phone] 7Result Comment: Performed At: [facility] [address] [place], [place] [id number] Tommy Gordon MD Ph:[phone] Social History Social History Type Response Tobacco Current everyday tob acco user Tobacco Use:. 1/2 PPD per day. Sex Female Patient Care team information Care Team Personnel Name: Ana María Daily APRN Position: Physician Member Role: Primary Care Physician Address: Address: [address] [place] [phone] Care Team Related Persons Name: FAB ANGULO Address: Home [address] [place] [phone] [facility]
--- OUTSIDE RECORDS SUMMARY | 2024-02-06 00:56 | XMS_ITS | Continuity of Care Document ---
Author Organization [facility] Address [address] [place] [address] Care Team Providers Care Web Feeder Name Role Phone Killian SPRAGUERick Lombardoah Dyan Primary Care Physician Encounter [facility]BR [id number] Date(s): 10/28/23 - 10/28/23 [facility] [address] [place] [address] [place] Discharge Disposition: Home Allergies, [...] afternoon, # 30 tab, 0 Refill(s), Pharmacy: [facility] #93,157.48, cm, 10/12/23 8:05:00 EDT, Height, 61.9, kg, 10/12/23 8:14:00 EDT, Weight Dosing Start Date: 10/13/23 Stop Date: 11/12/23 Status: Ordered dextroamphetamine-amphetamine 30 mg oral tablet 30 mg 1 tab, Oral, Daily, Take In the morning, # 30 tab, 0 Refill(s), Pharmacy: [facility] #93, 157.48, cm, 10/12/23 8:05:00 EDT, Height, [...] bedtime, # 30 tab, 11 Refill(s), Pharmacy: [facility] #93, 157.48, cm, 10/12/23 8:05:00 EDT, Height, [...] Completed Upper gastrointestinal endoscopy 4 Completed 1pancreas 71747 3cyst removal 64209 Social History Social History Type Response Tobacco Current everyday tob acco user Tobacco Use:. 1/2 PPD per day. Sex Female Patient Care team information Care Team Personnel Name: Ana María Daily APRN Position: Physician Member Role: Primary Care Physician Address: Address: [address] [place] [address] [place] Care Team Related Persons Name: FAB ANGULO Address: Home [address] [phone] [facility]
--- OUTSIDE RECORDS SUMMARY | 2024-02-06 00:56 | XMS_ITS | Encounter Summary ---
Author Organization [facility] Address [address] [place] [address] Care Team Providers Care Manager Of Production Name Role Phone Unavailable Primary Care Provider Unavailabl e Encounter Details Date Type Department Care Team (Late st Contact Info) Description 01/19/2024 Lab Requisition [facility] Pathology & Laboratory Medicine - [facility] [address], [place] [address] Outr Resulting Lab, Provider Social History Tobacco [...] Procedure Name Priority Date/Time Associated Diagnosis Comments HIV 1/2 ANTIGEN AND ANTIBODY, 4TH GENERATION Routine 01/19/2024 9:45 EDT documented in this encounter Results * HIV 1/2 ANTIGEN AND ANTIBODY, 4TH GENERATION (01/19/2024 9:45 EDT) HIV 1 and 2 Antibody/p24 Antigen, 4th Generation Negative Negative 01/19/2024 19:57 EDT [facility] Comment:If acute HIV-1 infec tion is suspected in a high risk patient, submit plasma specimen for HIV-1 RNA quantitation test. Blood VENOUS BLOOD / Unknown 01/19/2024 9:45 EDT 01/19/2024 18:10 EDT Narrative [facility] - 01/19/2024 19:57 EDT Fourth Generation assay performed on the Siemens Centaur XPT. Provider Outr Resulting Lab IMMUNOLOGY A ND SEROLOGY ORDERABLES [facility] [address] [place] [address] documented in this encounter Visit Diagnoses Not on filedocumented in this encounter
--- OUTSIDE RECORDS SUMMARY | 2024-02-06 00:56 | XMS_ITS | Encounter Summary ---
Author Organization [facility] Address [address] [place] [address] Care Team Providers Care Claim Manager Name Role Phone Unavailable Primary Care Provider Unavailabl e Encounter Details Date Type Department Care Team (Late st Contact Info) Description 10/30/2023 Lab Requisition [facility] Pathology & Laboratory Medicine - [facility] [address] [place] [address] Outr Resulting Lab, Provider Social History Tobacco [...] Diagnosis Comments HCV RNA DETECT QUANT Today 10/29/2023 22:25 EDT ACUTE HEPATITIS PROFILE Routine 10/29/2023 22:25 EDT documented in this encounter Results * HCV RNA DETECT QUANT (10/29/2023 22:25 EDT) HCV RNA Qualitative Undetected Undetected 11/03/2023 13:20 EDT [facility] Blood VENOUS BLOOD / Unknown 10/29/2023 22:25 EDT 10/30/2023 21:33 EDT Narrative [facility] - 11/03/2023 13:20 EDT The quantification range of this assay is 15 IU/mL to 100,000,000 IU/mL. Testing was performed using the Krysta HCV test ([employer]ita [employer] with the krysta 6800 System. Provider Outr Resulting Lab CHEMISTRY & BLOOD GAS ORDERABLES [facility] [address] [place], [place] [address] * (ABNORMAL) ACUTE HEPATITIS PROFILE (10/29/2023 22:25 EDT) Hep B Surface Ag Negative Negative 11/01/2023 10:31 EDT [facility] Hep C Antibody Reactive(A) Negative 10:31 EDT [facility] Comment: Supplemental testing for HCV RNA is ordered to rule out active HCV infection. Index value ??is >=1.00 and <11.00 Hepatitis A Antibody, IgM Negative Negative 11/01/2023 10:31 EDT [facility] Comment:The results of this assay can be falsely lowered due to the consumption of Biotin. Hepatitis B Core Ab, Total Negative Negative 11/01/2023 10:31 EDT [facility] Blood VENOUS BLOOD / Unknown 10/29/2023 22:25 EDT 10/30/2023 21:33 EDT Provider Outr Resulting Lab CHEMISTRY & BLOOD GAS ORDERABLES [facility] [address] [place], [place] [id number] documented in this encounter Visit Diagnoses Not on filedocumented in this encounter
--- OUTSIDE RECORDS SUMMARY | 2024-02-06 00:56 | XMS_ITS | Continuity of Care Document ---
Author Organization [facility] Address [address] [place] [address] Care Team Providers Care Paper Coating Machine Operator Name Role Phone BertaAna María slade APRN Primary Care Physician [phone] Encounter [facility] NBR [id number] Date(s): 12/21/23 - 12/21/23 [facility] [address] [place] [address] [place] Discharge Disposition: Home Allergies, Adverse Reactions, Alerts Substance Reaction Severity Status ciprofloxacin Vomiting Moderate Active codeine Bleeding Severe Active Flagyl GI intolerance Mild Active traMADol GI intolerance Mild Active Cat Hair puffy eye Sneezing Mild Active Tylenol GI intolerance Mild Active sulfamethoxazole Unknown Active Assessment and Plan Future Appointments Future Scheduled Tests Laboratory* HIV-1/2 With Rfx ([facility]) 11/17/23 * HCV RNA by PCR, Qn Rfx Gill 11/17/23 Medications Adderall 20 mg oral tablet 20 mg 1 tab, Oral, Daily, Take in the afternoon, # 30 tab, 0 Refill(s), Pharmacy: [facility] #93,157.48, cm, 11/15/23 10:23:00 EDT, Height, 59, kg, 11/15/23 10:27:00 EDT, Weight Dosing Start Date: 12/12/23 Stop Date: 01/11/24 Status: Ordered dextroamphetamine-amphetamine 30 mg oral tablet 30 mg 1 tab, Oral, Daily, Take In the morning, # 30 tab, 0 Refill(s), Pharmacy: [facility] #93, 157.48, cm, 11/15/23 10:23:00 EDT, Height, 59, kg, 11/15/23 10:27:00 EDT, Weight Dosing Start Date: 12/12/23 Stop Date: 01/11/24 Status: Ordered ProAir HFA 90 mcg/inh inhalation [...] bedtime, # 30 tab, 11 Refill(s), Pharmacy: [facility] #93, 157.48, cm, 10/12/23 8:05:00 EDT, Height, 61.9, kg, 10/12/23 8:14:00 EDT, Weight Dosing Start Date: 10/13/23 Stop Date: 10/07/24 Status: Ordered triamcinolone 0.1% topical cream 1 randy, Topical, BID, # 1 g, 0 Refill(s), Pharmacy: [facility] #93, 157.48, cm, 11/15/23 8:56:00 EDT, Height, [...] Completed Upper gastrointestinal endoscopy 4 Completed 1pancreas 46159 3cyst removal 20750 Social History Social History Type Response Tobacco Current everyday tob acco user Tobacco Use:. 1/2 PPD per day. Sex Female Patient Care team information Care Team Personnel Name: Ana María Daily APRN Position: Physician Member Role: Primary Care Physician Address: Address: [address] [place] [phone] [place] Care Team Related Persons Name: FAB ANGULO Address: Home [address] [place] [phone] [facility]
--- OUTSIDE RECORDS SUMMARY | 2024-02-06 00:56 | XMS_ITS | Continuity of Care Document ---
Author Organization [facility] Address [address] [place] [address] Care Team Providers Care Minister Name Role Phone Killian SPRAGUERick Lombardoah Dyan Primary Care Physician Encounter [facility] [facility] NBR [id number] Date(s): 10/15/23 - 10/15/23 [facility] [address] [place] [address] [place] Allergies, Adverse Reactions, Alerts Substance Reaction Severity [...] afternoon, # 30 tab, 0 Refill(s), Pharmacy: [facility] #93,157.48, cm, 10/12/23 8:05:00 EDT, Height, 61.9, kg, 10/12/23 8:14:00 EDT, Weight Dosing Start Date: 10/13/23 Stop Date: 11/12/23 Status: Ordered dextroamphetamine-amphetamine 30 mg oral tablet 30 mg 1 tab, Oral, Daily, Take In the morning, # 30 tab, 0 Refill(s), Pharmacy: [facility] #93, 157.48, cm, 10/12/23 8:05:00 EDT, Height, [...] bedtime, # 30 tab, 11 Refill(s), Pharmacy: [facility] #93, 157.48, cm, 10/12/23 8:05:00 EDT, Height, [...] Completed Upper gastrointestinal endoscopy 4 Completed 1pancreas 63350 3cyst removal 10888 Social History Social History Type Response Tobacco Current everyday tob acco user Tobacco Use:. 1/2 PPD per day. Sex Female Patient Care team information Care Team Personnel Name: Ana María Daily APRN Position: Physician Member Role: Primary Care Physician Address: Address: [address] [place] [address] [place] Care Team Related Persons Name: FAB ANGULO Address: Home [address] [facility] [address] [place], [place] [id number] [facility]
--- OUTSIDE RECORDS SUMMARY | 2024-02-06 00:56 | XMS_ITS | Encounter Summary ---
Author Organization [facility] [place] [address] Care Team Providers Care Managed Care Liaison Name Role Phone Ana María Daily APRN Primary Care Provider Reason for Referral * Surgical (Routine) - Authorized Specialty Diagnoses / Procedures Referred By Job barboza Referred To Contact Gastroenterology Diagnoses Other specified diseases of pancreas EUS - NEW PANCREATIC MASS Ny Cowan APRN [address] [place] [address] [facility] [address] [place] [address] Referral ID Status Reason Start Date Expiration Date Visits Requested Visits Authorized [id number] Authorized Test Only PCP Updated and/or Approved 11/15/2023 05/17/2024 1 1 Encounter Details Date Type Department Care Team (Late st Contact Info) Description 12/07/2023 Transcribe Orders eDH Incoming Referrals [phone] Ny Cowan APRN [address] [place], [place] [phone] Other specified diseases of pancreas Social History Tobacco Use Types Packs/Day Years Used Date Smoking Tobacco: Never Assessed Sex and Gender Information Value Date Recorded Sex Assigned at Not on file Gender Identity Not on file Sexual Orientation Not on file documented as of this encounter Plan of Treatment Scheduled Referrals Name Type Priority Associated Diagnoses Orde r Schedule REFERRAL TO ENDOSCOPY PROCEDURE Outpatient Referral Routine Other specified diseases of pancreas Ordered: 12/07/2023 documented as of this encounter Visit Diagnoses Diagnosis Other specified diseases of pancreas documented in this encounter Care Teams Managed Care Liaison Relationship Specialty Start Date End Date Ana María Daily APRN [address] [place] [address] PCP - General Family Medicine 12/07/23 documented as of this encounter
--- OUTSIDE RECORDS SUMMARY | 2024-02-06 00:56 | XMS_ITS | Clinical Summary ---
Author Organization [facility] Address [address] [place] [address] Care Team Providers Care Gate Services Supervisor Name Role Phone Unavailable Primary Care Provider Unavailabl e Allergies No known active allergies Medications Medication [...] Date Diagnosed Date Opioid use disorder 01/31/2024 Encounters Date Type Department Care Team Description 01/27/2024 Specialty Pharmacy [facility] [address] [place], [place] [phone] Stacie Joseph RPH Set up initial fill for Addiction Medicine, Patient Education for Addiction Medicine, Prospective Review for Addiction Medicine 01/27/2024 Telephone [facility] Specialty Pharmacy [address] [place], [place] [phone] Stacie Joseph RPH Medication Management 01/19/2024 Lab Requisition [facility] Pathology & Laboratory [address] [address] Outr Resulting Lab, Provider 01/19/2024 Lab Requisition [facility] Pathology & Laboratory [address] [address] Outr Resulting Lab, Provider 01/19/2024 Lab Requisition [facility] Pathology & Laboratory [address] [address] Outr Resulting Lab, Provider 01/19/2024 Lab Requisition [facility] Pathology & Laboratory [address] [address] Outr Resulting Lab, Provider from Last 3 Months Social History Tobacco Use Types Packs/Day Years Used Date Smoking Tobacco: Never Assessed Sex and Gender Information Value Date Recorded Sex Assigned at Not on file Gender Identity Not on file Sexual Orientation Not on file Plan of Treatment Health Maintenance Due Date Last Done Comments Hepatitis B Vaccine (1 of 3 - 19+ 3-dose series) 2000 COVID-19 Vaccine (2022-2 4 season) 2023 Hepatitis C Screen Completed 01/19/2024, 0 01/19/2024, 10/29/2023 Procedures Procedure Name Priority Date/Time Associated Diagnosis [...] the time period is included. Pathologist [facility] HCV RNA Qualitative Undetected Undetected 01/21/2024 13:12 EDT [facility] Blood VENOUS BLOOD / Unknown 01/19/2024 13:18 EDT 01/19/2024 21:45 EDT Narrative [facility] - 01/21/2024 13:12 EDT The quantification range of this assay is 15 IU/mL to 100,000,000 IU/mL. Testing was performed using the Krysta HCV test ([employer] with the krysta HealthcareSource0 System. Provider Outr Resulting Lab CHEMISTRY & BLOOD GAS ORDERABLES Performing Organization Address [facility]/ZIP Co de Phone Number [facility] [address] [place] [phone] * (ABNORMAL) ACUTE HEPATITIS PROFILE (01/19/2024 13:18 EDT) Only the most recent of2 resultswithin the time period is included. Pathologist [facility] Hep B Surface Ag Negative Negative 01/20/2024 11:59 EDT [facility] Hep C Antibody Reactive(A) Negative 11:59 EDT [facility] Comment: Supplemental testing for HCV RNA is ordered to rule out active HCV infection. Index value ??is >=1.00 and <11.00 Hepatitis A Antibody, IgM Negative Negative 01/20/2024 11:59 EDT [facility] Comment:The results of this assay can be falsely lowered due to the consumption of Biotin. Hepatitis B Core Ab, Total Negative Negative 01/20/2024 11:59 EDT [facility] Blood VENOUS BLOOD / Unknown 01/19/2024 13:18 EDT 01/19/2024 21:45 EDT Provider Outr Resulting Lab CHEMISTRY & BLOOD GAS ORDERABLES Performing Organization Address [facility]/ZIP Co de Phone Number [facility] [address] [place], [place] [phone] * HIV 1/2 ANTIGEN AND ANTIBODY, 4TH GENERATION (01/19/2024 13:18 EDT) Only the most recent of2 resultswithin the time period is included. HIV 1 and 2 Antibody/p24 Antigen, 4th Generation Negative Negative 01/20/2024 11:01 EDT [facility] Comment:If acute HIV-1 infec tion is suspected in a high risk patient, submit plasma specimen for HIV-1 RNA quantitation test. Blood VENOUS BLOOD / Unknown 01/19/2024 13:18 EDT 01/19/2024 21:46 EDT Narrative [facility] - 01/20/2024 11:01 EDT Fourth Generation assay performed on the Siemens Cool de Sacaur XPT. Provider Outr Resulting Lab IMMUNOLOGY A ND SEROLOGY ORDERABLES [facility] [address] [place] [address] from Last 3 Months
--- OUTSIDE RECORDS SUMMARY | 2024-02-06 00:56 | XMS_ITS | Continuity of Care Document ---
Author Organization [facility] Address [address] [place] [address] Care Team Providers Care Litigation Services Manager Name Role Phone Killian SPRAGUEMunira Ana María Dyan Primary Care Physician [phone] Encounter [facility] NBR [id number] Date(s): 08/09/23 - 08/09/23 [facility] [address] [place] [address] [place] Discharge Disposition: Home Allergies, [...] tablet 20 mg 1 tab, Oral, Daily, must appt 10/13/23 for further refill Take in the afternoon, # 30 tab, 0 Refill(s), [facility]acy: [id number] Start Date: 08/06/23 Stop Date: 09/05/23 Status: Ordered dextroamphetamine-amphetamine 30 mg oral tablet 30 mg 1 tab, Oral, Daily, must attend appt 10/13/23 for further refill Take In the morning, # 30 tab, 0 Refill(s), Pharmacy: [email or web address] Start Date: 08/06/23 Stop Date: 09/05/23 Status: Ordered ProAir HFA 90 mcg/inh inhalation [...] bedtime, # 30 tab, 11 Refill(s), Pharmacy: [email or web address] Start Date: 11/24/22 Stop Date: 11/19/23 [...] Completed Upper gastrointestinal endoscopy 4 Completed 1pancreas 20076 3cyst removal [address] Social History Social History Type Response Tobacco Current everyday tob acco user Tobacco Use:. 1/2 PPD per day. Sex Female Patient Care team information Care Team Personnel Name: Ana María Daily APRN Position: Physician Member Role: Primary Care Physician Address: Address: [address] [place] [id number] [place] Care Team Related Persons Name: FAB ANGULO Address: Home [address] [facility] [address] [place], [place] [phone] [facility]
--- OUTSIDE RECORDS SUMMARY | 2024-02-06 00:56 | XMS_ITS | Encounter Summary ---
Author Organization [facility] Address [address] [place] [address] Care Team Providers Care Clinical Assistant Name Role Phone Unavailable Primary Care Provider Unavailabl e Encounter Details Date Type Department Care Team (Late st Contact Info) Description 01/19/2024 Lab Requisition [facility] Pathology & Laboratory Medicine - [facility] [address] [place], [place] [phone] Outr Resulting Lab, Provider Social History Tobacco [...] Comments HCV RNA DETECT QUANT Today 01/19/2024 9:45 EDT ACUTE HEPATITIS PROFILE Routine 01/19/2024 9:45 EDT documented in this encounter Results * HCV RNA DETECT QUANT (01/19/2024 9:45 EDT) HCV RNA Qualitative Undetected Undetected 01/20/2024 12:56 EDT [facility] Blood VENOUS BLOOD / Unknown 01/19/2024 9:45 EDT 01/19/2024 18:10 EDT Narrative [facility] - 01/20/2024 12:56 EDT The quantification range of this assay is 15 IU/mL to 100,000,000 IU/mL. Testing was performed using the Krysta HCV test ([employer] with the krysta 6800 System. Provider Outr Resulting Lab CHEMISTRY & BLOOD GAS ORDERABLES [facility] [address] [place], [place] [address] * (ABNORMAL) ACUTE HEPATITIS PROFILE (01/19/2024 9:45 EDT) Hep B Surface Ag Negative Negative 01/19/2024 20:54 EDT [facility] Hep C Antibody Reactive(A) Negative 20:54 EDT [facility] Comment: Supplemental testing for HCV RNA is ordered to rule out active HCV infection. Index value ??is >=1.00 and <11.00 Hepatitis A Antibody, IgM Negative Negative 01/19/2024 20:54 EDT [facility] Comment:The results of this assay can be falsely lowered due to the consumption of Biotin. Hepatitis B Core Ab, Total Negative Negative 01/19/2024 20:54 EDT [facility] Blood VENOUS BLOOD / Unknown 01/19/2024 9:45 EDT 01/19/2024 18:10 EDT Provider Outr Resulting Lab CHEMISTRY & BLOOD GAS ORDERABLES [facility] [address] [place], [place] [phone] documented in this encounter Visit Diagnoses Not on filedocumented in this encounter
--- OUTSIDE RECORDS SUMMARY | 2024-02-06 00:56 | XMS_ITS ---
Author Organization [facility] Address [address] [place] [address] Care Team Providers Care Fountain Attendant Name Role Phone Unavailable Primary Care Provider Unavailabl e Addiction Medicine Status:Enrolled (Active) Start date:01/27/2024 Enrollment date:01/31/2024 Current support & services provided:Clinical Management, Refill Management, Clinic Administered Medication Linked medications:buprenorphine (Active) Linked problems:Opioid use disorder (Active) Overview [facility] Med: [phone] Case Team Name Relationship Phone Stacie Joseph [facility] Pharmacist(Responsible Staff) Continued Care and Services Coordination
--- OUTSIDE RECORDS SUMMARY | 2024-02-06 00:56 | XMS_ITS | Clinical Summary ---
Author Organization [facility] Address [facility] [place] [address] Care Team Providers Care Supervisor Contact Lens Name Role Phone Ana María Daily EDWIN Primary Care Provider Encounters Date Type Department Care Team Description 12/07/2023 Transcribe Orders eD Incoming Referrals [phone] Ny Cowan APRN Other specified diseases of pancreas from Last 3 Months Social History Tobacco Use Types Packs/Day Years Used Date Smoking Tobacco: Never Assessed Sex and Gender Information Value Date Recorded Sex Assigned at Not on file Gender Identity Not on file Sexual Orientation Not on file Plan of Treatment Health Maintenance Due Date Last Done Comments HIV screen 1999 Hepatitis C Screening 1999 Hepatitis B vaccine (0-59 yrs) (1) 2000 Tdap adult 2000 Tetanus vaccine 2000 HPV test 2011 PAP Smear 2011 Breast Cancer Share Decision Needed 2021 Breast Cancer screening 2021 Covid-19 Vaccine ( - 2022-24 season) 2023 Influenza (Flu) vaccine (1 o f 1 - Influenza standard series) 03/05/2024 Procedures Procedure Name Priority Date/Time Associated Diagnosis Comments ORDS - PROVIDER CARE SCAN 11/25/2023 12:00 AM EDT from Last 3 Months Results * Scan Doc: Ords - Provider Care (11/25/2023 12:00 AM EDT) Narrative 11/25/2023 12:00 AM EDT Ordered by an unspecified provider. Scanning Provider MEDIA MGR SCAN EXT O RDR/RSLT from Last 3 Months Care Teams Supervisor Contact Lens Relationship Specialty Start Date End Date Ana María Daily APRN [address] [place] [address] PCP - General Family Medicine 12/07/23
--- OUTSIDE RECORDS SUMMARY | 2024-02-06 00:56 | XMS_ITS | Encounter Summary ---
Author Organization [facility] Address [address] [place] [address] Care Team Providers Care Slot Host Name Role Phone Unavailable Primary Care Provider Unavailabl e Encounter Details Date Type Department Care Team (Late st Contact Info) Description 01/19/2024 Lab Requisition [facility] Pathology & Laboratory Medicine - [facility] [address] [place], [place] [phone] Outr Resulting Lab, Provider Social History Tobacco [...] ANTIBODY, 4TH GENERATION Routine 01/19/2024 13:18 EDT documented in this encounter Results * HIV 1/2 ANTIGEN AND ANTIBODY, 4TH GENERATION (01/19/2024 13:18 EDT) HIV 1 and 2 Antibody/p24 Antigen, 4th Generation Negative Negative 01/20/2024 11:01 EDT [facility] Comment:If acute HIV-1 infec tion is suspected in a high risk patient, submit plasma specimen for HIV-1 RNA quantitation test. Blood VENOUS BLOOD / Unknown 01/19/2024 13:18 EDT 01/19/2024 21:46 EDT Narrative [facility] - 01/20/2024 11:01 EDT Fourth Generation assay performed on the Siemens Centaur XPT. Provider Outr Resulting Lab IMMUNOLOGY A ND SEROLOGY ORDERABLES [facility] [address] [place] [address] documented in this encounter Visit Diagnoses Not on filedocumented in this encounter
--- OUTSIDE RECORDS SUMMARY | 2024-02-06 00:56 | XMS_ITS | Continuity of Care Document ---
Author Organization [facility] Address [address] [place] [address] Care Team Providers Care Sky Cap Name Role Phone Kelle Geiger Primary Care Physician Encounter [facility] NBR [id number] Date(s): 10/21/22 - 10/21/22 [facility] [address] [place] [address] [place] Discharge Disposition: Home Allergies, Adverse Reactions, Alerts Substance Reaction Severity Status ciprofloxacin Vomiting Moderate Active codeine Bleeding Severe Active sulfamethoxazole Unknown Active Flagyl GI intolerance Mild Active Tylenol GI intolerance Mild Active traMADol GI intolerance Mild Active Cat Hair puffy eye Sneezing Mild Active Assessment and Plan Future Scheduled Tests Radiology* MG Mammo Screening Bilateral 05/05/22 Medications Adderall 20 mg oral tablet 20 mg 1 tab, Oral, Daily, Take in the afternoon, # 30 tab, 0 Refill(s), Pharmacy: [id number] Start Date: 10/21/22 Stop Date: 11/20/22 Status: Ordered dextroamphetamine-amphetamine 30 mg oral tablet 30 mg 1 tab, Oral, Daily, In the morning, # 30 tab, 0 Refill(s), Pharmacy: [facility] Start Date: 10/21/22 Stop Date: 11/20/22 Status: Ordered ProAir HFA 90 mcg/inh inhalation [...] bedtime, # 30 tab, 6 Refill(s), Pharmacy: [facility] Start Date: 05/05/22 Stop Date: 12/01/22 [...] Completed Upper gastrointestinal endoscopy 4 Completed 1pancreas 40419 3cyst removal [address] Social History Social History Type Response Tobacco Current everyday tob acco user Tobacco Use:. 1/2 PPD per day. Sex Female Patient Care team information Care Team Personnel Name: Kelle Geiger APRN Position: Physician Member Role: Primary Care Physician Address: Address: [address] [place] [address] [address] Care Team Related Persons Name: FAB ANGULO Address: Home [address] [facility] [address] [place], [place] [phone] [facility]
--- OUTSIDE RECORDS SUMMARY | 2024-02-06 00:56 | XMS_ITS | Continuity of Care Document ---
Author Organization [facility] Address [address] [place] [address] Care Team Providers Care Pipeline Superintendent Name Role Phone Kelle Geiger Primary Care Physician [phone] Encounter [facility] NBR [id number] Date(s): 11/12/22 - 11/12/22 [facility] [address] [place] [address] [place] Discharge Disposition: Home Allergies, [...] afternoon, # 30 tab, 0 Refill(s), Pharmacy: [facility] Start Date: 10/21/22 Stop Date: 11/20/22 Status: Ordered dextroamphetamine-amphetamine 30 mg oral tablet 30 mg 1 tab, Oral, Daily, In the morning, # 30 tab, 0 Refill(s), Pharmacy: [facility] Start Date: 10/21/22 Stop Date: 11/20/22 [...] bedtime, # 30 tab, 6 Refill(s), Pharmacy: [facility] Start Date: 05/05/22 Stop Date: 12/01/22 [...] Completed Upper gastrointestinal endoscopy 4 Completed 1pancreas [address] 3cyst removal [address] Social History Social History Type Response Tobacco Current everyday tob acco user Tobacco Use:. 1/2 PPD per day. Sex Female Patient Care team information Care Team Personnel Name: Kelle Geiger APRN Position: Physician Member Role: Primary Care Physician Address: Address: [address] [facility] [address] Care Team Related Persons Name: FAB ANGULO Address: Home [address] [facility] [address] [place], [place] [phone] [facility]
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
--- OUTSIDE RECORDS SUMMARY | 2024-02-06 00:56 | XMS_ITS | Continuity of Care Document ---
Author Organization [facility] Ambulatory Clinics Address [address] [place] [address] Care Team Providers Care Movement Therapist Name Role Phone Kelle Geiger Primary Care Physician Encounter [facility] NBR [id number] Date(s): 08/26/22 - 08/26/22 [facility] Ambulatory Clinics [address] [place], [place] [address] Encounter Diagnosis ADHD(Discharge Diagnosis) - 08/26/22 Sterilization education(Discharge Diagnosis) - 08/26/22 Discharge Disposition: Home or Self Care Attending [...] MG Mammo Screening Bilateral 05/05/22 Functional Status 08/26/22 Other exposure to Infectious Disease Non e Medications Adderall 20 mg oral tablet 20 mg 1 tab, Oral, Daily, Take in the afternoon, # 30 tab, 0 Refill(s), Pharmacy: [id number] Start Date: 08/26/22 Stop Date: 09/25/22 Status: Ordered dextroamphetamine-amphetamine 20 mg oral tablet 20 mg 1 tab, Oral, BID, # 60 tab, 0 Refill(s), Pharmacy: [id number] Start Date: 06/04/22 Stop Date: 07/04/22 Status: Ordered dextroamphetamine-amphetamine 30 mg oral tablet 30 mg 1 tab, Oral, Daily, In the morning, # 30 tab, 0 Refill(s), Pharmacy: [id number] Start Date: 08/26/22 Status: Ordered ProAir HFA 90 mcg/inh inhalation [...] bedtime, # 30 tab, 6 Refill(s), Pharmacy: [id number] Start Date: 05/05/22 Stop Date: 12/01/22 [...] Completed Upper gastrointestinal endoscopy 4 Completed 1pancreas 16819 3cyst removal 56608 Vital Signs Most recent to oldest [Reference Range]: 1 Temperature Tympanic [36.6-37.9 Deg C] 3 6.2 Deg C *LOW* (08/26/22 8:26 AM) Peripheral Pulse Rate [60-100 bpm] 77 bp m (08/26/22 8:26 AM) Blood Pressure [90-140/60-90 mmHg] 140/9 2mmHg (08/26/22 8:26 AM) Weight 58.79 kg (08/26/22 8:26 AM) Weight Measured (lbs) 129.61 lb (08/26/22 8:26 AM) Social History Social History Type Response Tobacco Current everyday tob acco user Tobacco Use:. 1/2 PPD per day. Sex Female Hospital Discharge Instructions Follow Up Care 05/05/2022 10:11:30 With:Kelle Geiger APRN Address: [address] [place] [address] [address] [place] [address]- When:3 Months Physician Outpatient Note * Kelle Gegier APRN: PERFORM Event Display: Office Clinic Note Physician Authored Date: [id number] CLAIRE COOK :1980 Age:42 years Sex:Female Visit Date:08/26/2022 Primary Care Physician: Kelle Geiger APRN Chief Complaint 3 month follow up appointment. for meds History of Present Illness Claire was seen today for a 3 month medication follow up.?? She has been treated for ADHD for manyyears and is going through a lot right now with her 4 year old son and is interested in increasing her morning dose to 30 mg.?? Her son is being tested for Autism and she is having difficulty with filling out paperwork and remembering to attend meetings for him.?? She feels her sleep is good, only taking the Trazodone sparingly.?? She has not had her mammogram done yet and she would like to for to [facility] to discuss a BTL. Review of Systems Constitutional:?No??fevers,?No??chills,?No??sweats, No weight loss Eye:?No??recent visual problems, No headaches ENT:?No??ear pain,?No??nasal congestion,?No??sore throat Respiratory:?No??shortness of breath,?No??cough Cardiovascular:?No??Chest pain,?No??palpitations,?No??syncope Gastrointestinal:?Nonausea,?No??vomiting,?No??diarrhea, No abdominal pain Genitourinary:?No??hematuria Gaurav/Lymph:?No??bruising tendency,?No??swollen lymph glands Endocrine:?No??excessive thirst,??No??excessive hunger Musculoskeletal:??No??back pain,??No??neck pain,??No??joint pain,??No??muscle pain,??No??decreased range of motion Integumentary:?No??rash,?No??pruritus,?No??abrasions Neurologic: Alert & oriented X 4 Psychiatric:?No??anxiety,?No??depression Physical Exam Vitals & Measurements T:??36.2?C ??(Tympanic)?? HR:??77??(Peripheral)?? BP:??140/92?? SpO2:??99%?? WT:??58.79??kg?? General: Alert and oriented, well nourished, no acute distress. Lungs: Clear to auscultation and percussion, non-labored respiration. Heart: Normal rate, regular rhythm, no murmur, gallop or edema. Skin: Skin is warm, dry and appropriate for ethnicity, no rashes or lesions. Neurologic: Awake, alert and oriented X4, CN II-XII intact. Psychiatric: Cooperative, appropriate mood and affect. Assessment/Plan 1.??ADHD??F90.9 Claire is a pleasant 42 year old female seen for follow up on her ADHD medications.?? She would like to increased her am dose of Adderall to 30 mg due to increased stress and tasks related to her 4 year old son.?? She did take this dose when she was younger.?? Reviewed risks and benefits of this, she will call with any concerns, needs to follow up in 3 months. 2.??Sterilization education??Z30.09 She is asking about having a BTL, as she wants to make sure she does not get .?? She does have a Mirena currently.?? Will send the referral to [facility]. Orders: Adderall 20 mg oral tablet, 20 mg 1 tab, Oral, Daily, Take in the afternoon, # 30 tab, 0 Refill(s),Pharmacy: [id number] dextroamphetamine-amphetamine 30 mg oral tablet, 30 mg 1 tab, Oral, Daily, In the morning, # 30 tab, 0 Refill(s), Pharmacy: [id number] Referral Orders Referral Management, Medical Service: Gynecology, Reason: 42 year old female who will like to discuss a BTL., Start: 08/26/22, Instructions: Please send to [facility]. Follow Up Instructions With When Contact Information Kelle Geiger APRN Within 3 Months [address] [place] [id number]- Additional Instructions: Problem List/Past Medical History Ongoing ADHD Anxiety Depression Drug dependence Gallbladder disease Hepatic steatosis HTN (hypertension) Infection IUD (intrauterine device) in place Low blood sugar Pancreatitis Seizure Syncope Historical Procedure/Surgical History ???Biopsy???Cholecystectomy???EGD (esophagogastroduodenoscopy) gastric outlet reduction???Surgery???Upper gastrointestinal endoscopy Medications Adderall 20 mg oral tablet, 20 mg= 1 tab, Oral, Daily dextroamphetamine-amphetamine 20 mg oral tablet, 20 mg= 1 tab, Oral, BID dextroamphetamine-amphetamine 30 mg oral tablet, 30 mg= 1 tab, Oral, Daily ProAir HFA 90 mcg/inh inhalation aerosol, 1 puffs, Inhale, every 4 hr, PRN Suboxone 8 mg-2 mg sublingual film, 1 film, SL, Daily traZODone 50 mg oral tablet, 50 mg= 1 tab, Oral, every night at bedtime, 6 refills triamcinolone 0.1% topical cream, 1 randy, Topical, BID Allergies codeine??(Bleeding) ciprofloxacin??(Vomiting) Cat Hair??(puffy eye, Sneezing) Flagyl??(GI intolerance) Tylenol??(GI intolerance) traMADol??(GI intolerance) sulfamethoxazole Social History Alcohol Current Electronic Cigarette/Vaping Electronic Cigarette Use: Never. Substance Use Past- Comments: Pt. has HX of chronic opoid drug use. Tobacco Current everyday tobacco user Tobacco Use:. 1/2 PPD per day. Electronically Signed on 08/26/22 09:53 AM Kelle Geiger APRN Patient Care team information Care Team Personnel Name: Kelle Geiger APRN Position: Physician Member Role: Primary Care Physician Address: Address: [address] [place] [address]- Care Team Related Persons Name: KEVFAB Address: Home [address] [place], [place] [id number] [place]
--- OUTSIDE RECORDS SUMMARY | 2024-02-06 00:57 | XMS_ITS | Continuity of Care Document ---
Author Organization [facility] [employer], [place] Address [address] [place] [address] Care Team Providers Care Dot Net Architect Name Role Phone KELLE CUELLAR Primary Care Provider [phone] [facility] Internal Medicine [phone] MEI VELASCO OTHER Unavailable SATHISH EVANS OTHER Unavailable Assessment Encounter Date Assessment Date Assessment LastModified by Organization Details LastModified Time 11/16/2023 11/16/2023 Telemedicine Information: This telmed (audio + visual) appointment provided a MAT prescription. Time Start: 11:11a; Time End:11:16a Provider Location: office; Patient Location: office ([facility]) Telemedicine Consent Given (verbal): Y This patient with a history of OUD presents today for their weekly MAT visit Current prescription is: buprenorphine/nalo xone 16mg films Patient denies any S/E, cravings, or withdrawal sx at current dose Update Since Last Visit : (narrative note) Patient Denies all illicit drug use since last visit Seen today in cross-coverage for [facility] site Doing well, recently got a Andorran Aguilar puppy OUD : feeling stable on current dose AUD : states she has not had much trouble avoiding use since hospitalization, did drink two wine coolers since d/c. SHEN in office today 0.00%. States she enjoys a drink at the end of the day but does not feel that she is dependent Does acknowledge the impact that EtOH use has on her health and recognizes that continued use could do further pancreatic damage. Reports that she was told while in the hospital that she needed to stop drinking Recent hospitalization : hospitalized prior to last visit for PNA, incidental findings included electrolyte imbalance and imaging result concerning for possible pancreatic malignancy Of note today pt reports that she is very itchy, suspects it is because of new puppy at home States she met with GI provider yesterday, awaiting endoscopic US and [place] [facility] [place] chart review from recent hospitalization: Labs - 10/26/23 AST 92, ALT 74, AlkPhos 231, lipase WNL - 10/27/23: AST 78, ALT 60, AlkPhos 194, lipase WNL - UDS pos amphetamines (Rx), EtOH level 47mg/dL Per A/P - EtOH use reported in hospital: 4-5 shots alcohol daily - Severe calcitrant hypokalemia, metabolic alkalosis - Hx recurrent pancreatic pseudocyst s/p surgical intervention x2 - Referred to GI LAB RESULTS Last UDS result (qualitative screen): POS buprenorphine and POS for prescribed meds: amphetamines Last confirmatory test result (LCMS/quantitative ): Quantitative levels of: amphetamine (>1500) Last Bup confirmation was performed on 10/08/2023 with the result: Bup: 682.8 ng/ml & Norbup: 349.5 ng/ml Last LFT result: 10/27/23 Chronically elevated LFTs (see hosp documentation) Prescribed medication monthly last performed (if applicable): 11/09/2023 ASSESSMENT The patient's current phase of OUD treatment is: Stable maintenance, OUD, chronic use other. Interpretation of last buprenorphine confirmation test result: No concern Medication dose: No report of severe or persistent cravings/withdrawa l symptoms. Pt will remain at current dose PLAN (narrative, if applicable) Rx : Continue buprenorphine/nalo xone 16mg films daily Rx Quantity 7d Rx provided today. VISIT FREQUENCY Continue weekly visits and UDS. Treatment plan review or change includes continue current level of care LFTS will be repeated per our clinical protocol. Prescription monitoring program is reviewed. If applicable, I have identified agents prescribed to the patient in addition to any issued by our program. The patient has been counseled regarding any risk of combining sedating agents. [email or web address] Not available 11/16/2023 11:30:29 Plan of Treatment Reminders Order Date Submit Date Provider Last Modified By Organization Details Last Modified Time Details Appointments None recorded. Lab ethanol, breath 2023 024 [email or web address] [place] , [address], [place], [address], 05/21/202 4 07:51:17 drug screen, urine 2023 024 ANGEL [facility], [address] [place], [address], 4 12:48:16 ethanol, QL, screen, urine 2023 024 AN[facility], [address] [place], [address], 4 12:48:14 additional order codes 2023 024 AN[facility], [address] [place], [address], 4 11:31:45 additional order codes 2023 024 AN[facility], [address] [place], [address], 4 11:31:46 additional order codes 2023 024 AN[facility], [address] [place], [address], 4 11:31:48 additional order codes 2023 024 AN[facility], [address] [place], [address], 4 11:31:52 additional order codes 2023 024 AN[facility], [address] [place], [address], 4 11:31:55 additional order codes 2023 024 AN[facility], [address] [place], [address], 4 11:31:59 additional order codes 2023 024 AN[facility], [address] [place], [address], 4 11:31:50 buprenorphi ne, quantitativ e, urine 2023 024 [facility], [address] [place], [address], 4 07:33:36 Referral None recorded. Procedures None recorded. Surgeries None recorded. Imaging None recorded. Medication Orders Suboxone 8 mg-2 mg sublingual film 2023 024 ANGEL [facility], [address], [place], [address], 4 11:31:48 Patient TargetsNo targets recorded. Patient InstructionsNo instructions recorded. Reason for Referral None Reported. Problems Name Status Onset Date Resolution Date Notes Provider Name and Address Organization Details Recorded Time Alcohol dependence Active 2023 Kareen Feliciano NP [address] [facility] [place], [address], [facility] 4 10:07:34 Opioid dependence Active 2021 Kareen Feliciano NP [address] [facility] [place], [address], [facility] 3 10:02:05 Attention deficit hyperactivity disorder Active 2021 Yelitza Malhotra NP [address] [facility] [place], [address], [facility] 4 10:17:39 Insomnia Active 2021 Kareen Feliciano NP [address] [facility] [place], [address], [facility] 2 09:51:50 Chronic pancreatitis Active 2021 Dx 2012, most recent flare up required hospitalization 10/2023 Kareen Feliciano NP [address] [facility] [place], [place], [address], [facility] 4 10:09:29 Daily drinker Active 2022 [place], [address], [facility] 08:12:09 Problem Notes None recorded. Procedures Surgical History Date Name Laterality Status Provider Name and Address Organization Details Recorded Time 01/14/20 24 [id number], G0480, G0481 cancelled Mei Velasco, RN [address] [place], [address], [facility] 01/03/2024 08:39:07 12/24/19 24 [id number], G0480, G0481 completed Mei Velasco, RN [address] [place] [address], [address], [facility] 12/23/2023 09:42:52 12/01/19 24 [id number], G0480, G0481 completed Mei Velasco, RN [address] [place] [address], [address], [facility] 11/30/2023 13:15:06 11/23/19 24 [id number], G0480, G0481 cancelled Mei Velasco, HELGA [address] [place] [address], [address], [facility] 11/22/2023 08:38:57 11/16/19 24 [id number], G0480, G0481 completed Mei Velasco, HELGA [address] [place] [address], [address], [facility] 11/15/2023 09:03:08 11/09/19 24 15734, G0480, G0481 completed Mei Velasco, RN [address] [place] [address], [address], [facility] 11/09/2023 08:24:10 11/01/19 24 54838, G0480, G0481 cancelled Mei Velasco, HELGA [address] [place] [address], [address], [facility] 10/28/2023 08:31:09 10/26/19 24 [id number], G0480, G0481 completed Mei Velasco, HELGA [address] [place] [address], [address], [facility] 10/25/2023 08:15:43 10/21/19 24 [id number], G0480, G0481 cancelled Mei Velasco, HELGA [address] [place] [address], [address], [facility] 10/18/2023 14:31:59 10/14/19 24 [id number], G0480, G0481 completed Mei Velasco, HELGA [address] [place] [address], [address], [facility] 10/12/2023 08:04:50 10/08/19 24 [id number], G0480, G0481 completed Gloria Bullock null, [facility] 10/08/2023 09:11:27 10/01/19 24 [id number], G0480, G0481 completed Gloria Bullock null, [facility] 10/01/2023 08:45:08 09/13/19 24 11006, G0480, G0481 completed Yelitza Malhotra, SOFTWARE ENGINEERING SUPERVISOR [address] [place] [address], [address], [facility] 09/13/2023 15:36:10 08/25/19 24 [id number], G0480, G0481 completed Yelitza Malhotra, SOFTWARE ENGINEERING SUPERVISOR [address] [place] [address], [address], [facility] 08/23/2023 15:19:39 08/19/19 24 [id number], G0480, G0481 completed Mei Velasco, HELGA [address] [place] [address], [address], [facility] 08/12/2023 11:29:14 08/02/19 24 54211, G0480, G0481 completed Yelitza Malhotra, SOFTWARE ENGINEERING SUPERVISOR [address] [place] [address], [address], [facility] 07/26/2023 08:06:55 07/13/19 24 12391, G0480, G0481 completed Mei Velasco, HELGA [address] [place] [address], [address], [facility] 07/12/2023 14:49:49 07/13/19 24 75232, G0480, G0481 cancelled Mei Velasco RN [address] [place] [address], [address], [facility] 07/06/2023 10:00:04 06/24/20 23 [id number], G0480, G0481 completed Mei Velasco, RN [address] [place] [address], [address], [facility] 06/22/2023 11:53:13 06/21/20 23 27516, G0480, G0481 cancelled Mei Velasco, RN [address] [place], [address], [facility] 06/17/2023 08:16:42 06/10/20 23 68217, G0480, G0481 completed Mei Velasco, RN [address] [place] [address], [address], [facility] 06/10/2023 09:04:43 06/07/20 23 [id number], G0480, G0481 cancelled Mei Velasco, RN [address] [place] [address], [phone], [facility] 06/01/2023 08:48:57 05/24/20 23 [id number], G0480, G0481 completed Mei Velasco, RN [address] [place] [address], [address], [facility] 05/19/2023 08:30:01 05/06/20 23 08279, G0480, G0481 completed Mei Velasco, RN [address] [place], [address], [facility] 05/04/2023 11:32:09 04/22/20 23 75488, G0480, G0481 completed Mei Velasco, RN [address] [place] [address], [address], [facility] 04/20/2023 12:28:12 04/15/20 23 15049, G0480, G0481 cancelled Mei Velasco, RN [address] [place] [address], [address], [facility] 04/13/2023 10:08:44 04/01/20 23 69487, G0480, G0481 completed Mei Velasco, RN [address] [place] [address], [address], [facility] 03/30/2023 11:51:30 03/18/20 23 [id number], G0480, G0481 completed Yelitza Malhotra, SOFTWARE ENGINEERING SUPERVISOR [address] [place], [address], [facility] 03/17/2023 16:29:41 03/04/20 23 15780, G0480, G0481 completed Yelitza Malhotra, SOFTWARE ENGINEERING SUPERVISOR [address] [place], [address], [facility] 03/03/2023 18:22:34 02/19/20 23 [id number], G0480, G0481 completed Yelitza Malhotra, SOFTWARE ENGINEERING SUPERVISOR [address] [place], [address], [facility] 02/18/2023 08:01:46 02/16/20 23 90929, G0480, G0481 cancelled Yelitza Malhotra, SOFTWARE ENGINEERING SUPERVISOR [address] [place], [address], [facility] 02/15/2023 11:26:49 02/12/20 23 48460, G0480, G0481 cancelled Yelitza Malhotra, SOFTWARE ENGINEERING SUPERVISOR [address] [place], [address], [facility] 02/09/2023 19:47:20 01/29/20 23 87486, G0480, G0481 completed Yelitza Malhotra, SOFTWARE ENGINEERING SUPERVISOR [address] [place], [address], [facility] 01/28/2023 08:05:49 01/15/20 23 80615, G0480, G0481 completed [facility] 01/14/2023 09:45:14 01/01/20 23 22178, G0480, G0481 completed Yelitza Malhotra, SOFTWARE ENGINEERING SUPERVISOR [address] [place], [address], [facility] 12/30/2022 20:03:40 12/18/19 23 18457, G0480, G0481 completed Yelitza Malhotra, SOFTWARE ENGINEERING SUPERVISOR [address] [place], [address], [facility] 12/10/2022 08:08:47 11/27/19 23 63366, G0480, G0481 completed Yelitza Malhotra, SOFTWARE ENGINEERING SUPERVISOR [address] [place], [address], [facility] 11/25/2022 15:17:16 11/13/19 23 80431, G0480, G0481 completed Mei Velasco, HELGA [address] [place], [address], [facility] 11/12/2022 15:35:01 11/13/19 23 34458, G0480, G0481 cancelled Yelitza Malhotra, SOFTWARE ENGINEERING SUPERVISOR [address] [place], [address], [facility] 11/11/2022 15:07:26 10/30/19 23 [id number], G0480, G0481 completed Yelitza Malhotra, SOFTWARE ENGINEERING SUPERVISOR [address] [place] [address], [address], [facility] 10/28/2022 14:25:45 10/16/19 23 11134, G0480, G0481 completed Yelitza Malhotra, SOFTWARE ENGINEERING SUPERVISOR [address] [place], [address], [facility] 10/13/2022 12:07:59 10/02/19 23 65728, G0480, G0481 completed Yelitza Malhotra, SOFTWARE ENGINEERING SUPERVISOR [address] [place] [address], [address], [facility] 09/24/2022 14:44:46 09/15/19 23 52168, G0480, G0481 completed [facility] 09/09/2022 08:25:32 08/27/19 23 39850, G0480, G0481 completed Yelitza Malhotra, SOFTWARE ENGINEERING SUPERVISOR [address] [place], [address], [facility] 08/27/2022 11:35:44 08/24/19 23 76815, G0480, G0481 cancelled Yelitza Malhotra, SOFTWARE ENGINEERING SUPERVISOR [address] [place] [address], [address], [facility] 08/19/2022 11:24:01 08/10/19 23 22284, G0480, G0481 completed Yelitza Malhotra, SOFTWARE ENGINEERING SUPERVISOR [address] [place], [address], [facility] 08/07/2022 14:25:54 07/27/19 23 30084, G0480, G0481 completed Yelitza Malhotra, SOFTWARE ENGINEERING SUPERVISOR [address] [place], [address], [facility] 07/27/2022 08:47:25 07/09/19 23 58852, G0480, G0481 completed Yelitza Malhotra, SOFTWARE ENGINEERING SUPERVISOR [address] [place], [address], [facility] 07/08/2022 10:23:19 06/30/20 22 91041, G0480, G0481 completed Yelitza Malhotra, SOFTWARE ENGINEERING SUPERVISOR [address] [place], [address], [facility] 06/29/2022 19:27:44 06/25/20 22 61262, G0480, G0481 cancelled Yelitza Malhotra, SOFTWARE ENGINEERING SUPERVISOR [address] [place], [address], [facility] 06/23/2022 08:51:32 06/08/20 22 05554, G0480, G0481 completed Yelitza Malhotra, SOFTWARE ENGINEERING SUPERVISOR [address] [place], [address], [facility] 06/02/2022 15:41:43 05/21/20 22 38425, G0480, G0481 completed Yelitza Malhotra, SOFTWARE ENGINEERING SUPERVISOR [address] [place], [address], [facility] 05/20/2022 18:15:51 05/14/20 22 15633, G0480, G0481 completed Leila Sathya null, [facility] 05/13/2022 11:47:17 04/30/20 22 56787, G0480, G0481 completed Yelitza Malhotra, SOFTWARE ENGINEERING SUPERVISOR [address] [place], [address], [facility] 04/29/2022 13:38:25 04/23/20 22 06908, G0480, G0481 completed Leila Sathya null, [facility] 04/22/2022 09:54:52 04/16/20 22 39625, G0480, G0481 completed Yelitza Malhotra, SOFTWARE ENGINEERING SUPERVISOR [address] [place], [address], [facility] 04/14/2022 10:17:02 04/09/20 22 26328, G0480, G0481 completed Yelitza Malhotra, SOFTWARE ENGINEERING SUPERVISOR [address] [place], [address], [facility] 04/08/2022 10:11:58 04/02/20 22 23106, G0480, G0481 completed Yelitza Malhotra, SOFTWARE ENGINEERING SUPERVISOR [address] [place], [address], [facility] 04/01/2022 08:39:45 03/26/20 22 78982, G0480, G0481 completed Yelitza Malhotra, SOFTWARE ENGINEERING SUPERVISOR [address] [place], [address], [facility] 03/25/2022 13:40:25 03/18/20 22 [id number], G0480, G0481 [facility] 03/17/2022 15:20:33 07/05/19 13 cholecystectomy completed Kareen Feliciano, SOFTWARE ENGINEERING SUPERVISOR [address] [place], [address], [facility] 03/18/2022 09:51:20 Imaging Results None recorded. Procedure Notes None recorded. Medical Equipment None Reported. Allergies No known drug allergies Medications Name Sig Start Date Stop Date Status Note LastModified by Organization Details LastModified Time trazodone 50 mg tablet TAKE ONE TABLET BY MOUTH AT BEDTIME active Not Available Not Available No t Available amoxicillin 500 mg tablet active Not Available Not Available Not Available dextroamphe tamine-amph etamine 30 mg tablet TAKE ONE TABLET BY MOUTH EVERY DAY IN THE MORNING active Not Available Not Available No t Available dextroamphe tamine-amph etamine ER 20 mg 24hr capsule,ext end release TAKE ONE CAPSULE BY MOUTH TWICE A DAY FOR 30 DAYS IF NEEDED FOR ANXIETY 03/18 completed Not Available Not Available Not Available trazodone 100 mg tablet TAKE 1.5 TABLETS BY MOUTH AT BEDTIME active Not Available Not Available No t Available dextroamphe tamine-amph etamine 20 mg tablet TAKE ONE TABLET BY MOUTH EVERY DAY IN THE AFTERNOON active Not Available Not Available No t Available dextroamphe tamine-amph etamine 15 mg tablet 03/18 completed Not Available Not Available Not Available lactulose 10 gram/15 mL oral solution TAKE 15 ML BY MOUTH ONCE DAILY active Not Available Not Available No t Available Suboxone 8 mg-[address] 1 film twice a day by sublingua l route in the morning for 3 days. 2023 active Not Available Not Available Not Avai lable Vitals Date Recorded Body temperature Oxygen saturation Oxygen saturation in Arterial blood by Pulse oximetry Heart rate Systolic blood pressure Diastolic blood pressure Provider Name and Address Organization Details Last Updated DateTime 4 97.1 [degF] 98 % 98 % 115 /min 123 mm[Hg] 87 mm[Hg] Christa [employer] 4 11:05:41 Social History Question Answer Notes LastModified by Organizat ion Details LastModified Time *Housing Stable - Safe Living With Bf In Appt Information not available 03/18/2022 *Employment Retired/Disabl ed Information not available 03/18/2022 *Food Adequate Information no t available 03/18/2022 *[place] Not A Information not available 03/18/2022 *Job Training/Educa tion/Literacy Not Needed Information not available 03/18/2022 *Legal Status No Legal Issues Information not available 03/18/2022 *Legal Assistance Patient Declined Information not available 03/18/2022 *Custody Of Dependent Children Partial Custody Full Of 3 And Shared Of 1 Child Information not available 03/18/2022 *Social Service's Involvement With Dependent Children No Building Serviceman Involvement Information not available 03/18/2022 *Childcare Needed No Information not available 03/18/2022 *Concern For Domestic Violence No Information not available 03/18/2022 *Primary Care Provider Yes Kelle Amadoguillermo Information not available 03/18/2022 *Other Medical Issues Yes - Treated ADHD: Adderall 30mg AM And 20mg PM, Rx Via PCP Kelle Amadon Insomnia: Trazodone 50mg PRN, Has Not Been Needing To Take Information not available 03/18/2022 *Social Support Network Has Stable Support System Information not available 03/18/2022 *Transportatio n Issues No Information not available 03/18/2022 Sex: Female Functional Status None recorded. Mental Status None recorded. Family History Nothing Reported. Medical History Condition Response Prescribed Psychiatric Medication Y Psychiatric/Mental Health Condition Y Stomach/Intestinal Problems Y Gynecological HistoryNo gynecological history recorded. Obstetrics History GPAL:G 0 P 0 0 0 0 Past Encounters Encounter ID Performer Location Encounter Start Date Encounter Closed Date Diagnosis/Indication Diagnosis SNOMED-CT Code [id number] ELVIRA [place] [address] 10/26/2023 11:23:54 10/26/2023 11:48:52 Opioid dependence 40846748 Alcohol dependence 18168 424 [id number] Yelitza Malhotra NP [place] [address] 11/09/2023 08:48:58 11/09/2023 09:11:40 Opioid dependence 79451320 Alcohol dependence 84157 267 [id number] ELVIRA Hall [address] [address] 11/16/2023 10:58:35 11/16/2023 11:47:20 Opioid dependence 75373199 Alcohol dependence 74985 003 Chronic pancreatitis 235 484149 Goals Section Goal Description Status Start Date LastModified by Organization Details LastModified Time Patient demonstrates improved behaviors to maintain health None Recorded Goal not achieved 023 Mei Billbay Information not available 10/01/2022 14:03:59 Decreased Alcohol Consumption Reports decreased alcohol consumption as per care team recommendation( s) Goal not achieved 023 Mei Billbay Information not available 04/22/2023 13:03:57 Adequate Housing Conditions Maintains adequate housing with satisfactory living conditions Goal not achieved 024 Mei [place] Information not available 12/23/2023 18:45:06 Diet Adherence Follows prescribed or recommended diet Goal not achieved 024 Mei Billado Information not available 12/23/2023 18:45:06 Activities of Daily Living Performs activities of daily living independently or with minimal assistance Goal not achieved 024 Mei Billado Information not available 12/23/2023 18:45:06 Family and Social Support Reports family and/or social support needs are met Goal not achieved 024 Mei Billado Information not available 12/23/2023 18:45:06 Medication Regimen Follows medication regimen as per care team recommendation( s) Goal not achieved 024 Mei Billado Information not available 12/23/2023 18:45:06 Exercise Regularly Follows a regular exercise regimen or instructed exercise plan as per care team recommendation( s) Goal not achieved 024 Mei Billado Information not available 12/23/2023 18:45:06 Adequate Sleep Achieves adequate, well-rested sleep with minimal disruption Goal not achieved 024 Mei Billado Information not available 12/23/2023 18:45:06 Knowledge of Disease or Condition Demonstrates understanding of disease(s) or condition(s) Goal not achieved 024 Mei Billado Information not available 12/23/2023 18:45:06 Recreational Activities Participates in recreational activities Goal not achieved 024 Mei Billado Information not available 12/23/2023 18:45:06 Alcohol Abstinence Abstain from alcohol use Goal not achieved 024 Mei Billado Information not available 12/23/2023 18:45:06 Follow-up Appointment(s) Attends referral and/or follow-up appointment(s) as per care team recommendation( s) Goal not achieved 024 Mei Billado Information not available 12/23/2023 18:45:06 Effective Coping Manages life events with effective coping methods Goal not achieved 024 Mei Billado Information not available 12/23/2023 18:45:07 Quality of Life Reports satisfaction with quality of life Goal not achieved 024 Mei Billado Information not available 12/23/2023 18:45:08 Health Concerns Section Related Observation LastModified by Organization Detai ls LastModified Time General health poor Not Available Not Available Not Av ailable Concern Status LastModified by Organization Details LastModified Time opioid dependence Active [facility] PATCH Not Availa ble 03/10/2023 09:17:01 Daily drinker Active Mei Velasco Not Available 04/04 13:03:44 Payers Encounter Date Sequence Insurance Name Policy Number Policy Low Covered Member ID Low Member ID Guarantor Name 11/16/2023 1 [employer] (MEDICARE REPLACEMENT/A DVANTAGE - PPO) Dolly Manning Waitt [id number] Dolly Graciat Notes Date Note Type Note Provider Name and Address Organization Details Recorded Time 11/16/2023 text/html HPI Notes: This patient is here today for their follow-up MAT visit. They are being treated for OUD with buprenorphine. PLEASE SEE A & P SECTION FOR FULL VISIT NOTE ELVIRA Hall [address] [place] [address], [phone], [facility] [employer] 11/16/2023 11:31:46 OBGyn Episode No OBEpisode recorded.
--- OUTSIDE RECORDS SUMMARY | 2024-02-06 00:57 | XMS_ITS | Continuity of Care Document ---
Author Organization [place] [facility], [place] Address [address] [facility] [address] [place] [address] Care Team Providers Care Wafer Fab Technician Name Role Phone KELLE CUELLAR Primary Care Provider BAILEY MALHOTRA Internal Medicine [phone] MEI VELASCO OTHER Unavailable SATHISH EVANS OTHER Unavailable Assessment Encounter Date Assessment Date Assessment LastModified by Organization Details LastModified Time 12/24/2023 12/24/2023 Telemedicine Information: This telmed (audio + visual) appointment provided a MAT prescription. Time Start: 1340; Time End:1400 Provider Location: home; Patient Location: office Telemedicine Consent Given (verbal): Y This patient with a history of OUD, AUD and ADHD, presents today for their bi-weekly MAT visit Current prescription is: buprenorphine/na loxone 16mg films Patient denies any S/E, cravings, or withdrawal sx at current dose Update Since Last Visit : (narrative note): Dolly struggling with visit attendance, subsequent lapses in treatment and buprenorphine Rx. Pt attributes missed visits to cost; high copay and balance. Repeated efforts made to connect pt with Clinician for assistance with insurance plan. Since last visit, pt did speak with Clinician, explained primary reason for not changing insurance, is r/t son - who resides with his Mat. in [place]. (please refer to corresponding PC). Pt also noted to clinician and effort to transfer bup MAT to PCP and indicated she was receiving agent for pain mgmt versus MOUD. Reviewed with Dolly that while buprenorphine may help to mitigate pain and many people do develop OUD secondary to exposure to Rx opioids, [facility] is not a pain mgmt treatment program. DAVID hx provided by pt at time of her initial visit, consistent with meeting criteria for OUD. Patient Denies all illicit drug use since last visit OUD: -VPMS reflects suboxone dose overdue #9 days. -Pt clarifies, she has been taking 8 mg tdd over the last wk to avoid being w/o dose. -Reports opi w/d symptoms well managed with 16 mg tdd, however not at 8 mg. Endorses myalgias and arthralgias, inc sweating, yawning and runny nose at doses <16 mg. -Requesting biweekly visit frequency due to cost, reportedly having to pay $45/visit. AUD : SHEN: 0.000% Last use: I only have a couple of wine coolers here or there, but nothing since the hospital. Reports recent medical event has helped to avoid all alcohol use. Denies feeling she has had any recent issues with AUD, stating It was more of a habit, I would have a drink or two after putting my kid to bed. Pulse elevated today, 101 bpm. bp 120/80 MED: 10/2023, Recent hospitalization: 10/27/2023, hospitalized for PNA, incidental findings included electrolyte imbalance and imaging result concerning for possible pancreatic malignancy. Today, pt denies any medical updates stating No news, is good news. Unclear if GI f/u and endoscopy completed. Per chart review from recent hospitalization: Labs [...] surgical intervention x2 - Referred to GI Soc: Relocated [place] to [place] 1[place]2 yr ago. Lives with and kids. Two children, one lives in [place], one lives with Mat GM in [place] Does not work outside the home. LAB RESULTS Last UDS result (qualitative screen): 12/01/23POS buprenorphine and POS for prescribed meds: amphetamines Last confirmatory test result 12/01/23 (LCMS/quantitati ve): Quantitative levels of: amphetamine (>1500) Last Bup confirmation was performed on 12/01/2023 with the result: Bup: null ng/ml & Norbup: 302 ng/ml Last LFT result: 10/27/23 Chronically elevated LFTs (see hosp documentation) ASSESSMENT The patient's current phase of OUD treatment is: Stable maintenance, OUD, chronic use other. Interpretation of last buprenorphine confirmation test result: Consistent with pt report of lapse in medication adherence Medication dose: No report of severe or persistent cravings/withdra wal symptoms. Pt will remain at current dose AUD, unstable: Pt remains guarded and minimizes medical conditions directly r/t AUD. Question if pt experiencing alcohol w/d at time of visits, given elev pulse and overall presentation - restless, anxious. PLAN (narrative, if applicable) Med: -Repeat LFT 3 mth. -Attend all med f/u visits. AUD: -Start , recommend alternating with visits 1-2x/mth and on wk pt not seen by MAT provider. -Continue to closely monitor. OUD: -Resume suboxone 16 mg. -If pt continues to miss appt, consider dose reduction as pt appearing to take less than prescribed dose. -Given hx of missed visits and financial barrier reported today, trial biweekly MAT visits (alternating with visits). - Next wk, pt to present with clinician. Once bh visit completed, this provider will send in bup Rx. If visit not completed, then no RF to be sent until MAT visit completed. (tx plan implemented in effort to increase pt engagement in tx, while being mindful of cost barrier) Rx : Continue buprenorphine/na loxone 16mg films daily Rx Quantity 8d Rx provided today. VISIT FREQUENCY Continue biweekly visits and UDS. Treatment plan review or change includes continue current level of care UDS Collection Date: 12/24/2023 Routine UDS and bupe/norbup ratios ordered today for routine medical and diversion monitoring Reflex Testing amph n/a given adderall Rx. LFTS will be repeated per our clinical protocol. Prescription monitoring program is reviewed. If applicable, I have identified agents prescribed to the patient in addition to any issued by our program. The patient has been counseled regarding any risk of combining sedating agents. [email or web address] Not available 12/26/2023 12:15:28 Plan of Treatment Reminders Order Date Submit Date Provider Last Modified By Organization Details Last Modified Time Details Appointments None recorded. Lab ethanol, breath 2023 024 mmacdonal d44 [place] , [address] [facility], [place], [address], 4 10:43:46 drug screen, urine 2023 024 [facility], [address] [place], [address], 4 13:33:16 cannabinoid s, QL, screen, urine 2023 024 [facility] [address] [place], [address], 4 13:33:00 ethanol, QL, screen, urine 2023 024 [facility] [address] [place], [address], 4 13:32:48 additional order codes 2023 024 [facility], [address] [place], [address], 4 13:39:01 additional order codes 2023 024 [facility], [address] [place], [address], 4 13:39:04 additional order codes 2023 024 [facility], [address] [place], [address], 4 13:38:52 additional order codes 2023 024 [facility], [address] [place], [address], 4 13:39:06 additional order codes 2023 024 [facility], [address] [place], [address], 4 13:38:55 additional order codes 2023 024 [facility], [address] [place], [address], 4 13:38:57 additional order codes 2023 024 [facility], [address] [place], [address], 4 13:38:54 buprenorphi ne, quantitativ e, urine 2023 024 [facility], [address] [place], [address], 4 06:27:15 buprenorphi ne, quantitativ e, urine 2023 [facility], [address] [place], [address], 4 13:38:59 Referral None recorded. Procedures None recorded. Surgeries None recorded. Imaging None recorded. Medication Orders Suboxone 8 mg-2 mg sublingual film 2023 [facility], [address] [facility], [place], [address], 4 13:38:46 Patient TargetsNo targets recorded. Patient InstructionsNo instructions recorded. Reason for Referral None Reported. Problems Name Status Onset Date Resolution Date Notes Provider Name and Address Organization Details Recorded Time Alcohol dependence Active 2023 Kareen Feliciano NP [address] [facility], [place], [address], [facility] [employer] [facility] 4 10:07:34 Opioid dependence Active 2021 Kareen Feliciano NP [address] [facility], [place], [address], [facility] [employer] [facility] 3 10:02:05 Attention deficit hyperactivity disorder Active 2021 Bailey Malhotra NP [address] [facility] [place], [place], [address], [facility] 4 10:17:39 Insomnia Active 2021 Kareen Feliciano NP [address] [facility] [place], [place], [address], [facility] 2 09:51:50 Chronic pancreatitis Active 2021 Dx 2012, most recent flare up required hospitalization 10/2023 Kareen Feliciano NP [address] [facility] [place], [place], [address], [facility] 4 10:09:29 Daily drinker Active 2022 Bailey Malhotra NP [address] [facility] [place], [place], [address], [facility] 3 08:12:09 Problem Notes None recorded. Procedures Surgical History Date Name Laterality Status Provider Name and Address Organization Details Recorded Time 01/14/20 24 01332, G0480, G0481 cancelled Mei Velasco RN [address] [place] [address], [address], [facility] 01/03/2024 08:39:07 12/24/19 24 85833, G0480, G0481 completed Mei Velasco RN [address] [place] [address], [address], [facility] 12/23/2023 09:42:52 12/01/19 24 29448, G0480, G0481 completed Mei Velasco RN [address] [place] [address], [address], [facility] 11/30/2023 13:15:06 11/23/19 24 63260, G0480, G0481 cancelled Mie Velasco RN [address] [place] [address], [phone], [facility] 11/22/2023 08:38:57 11/16/19 24 00977, G0480, G0481 completed Mei Velasco RN [address] [place] [address], [address], [facility] [employer] [facility] 11/15/2023 09:03:08 11/09/19 24 26079, G0480, G0481 completed Mei Velasco, HELGA [address] [place] [address], [address], [facility] 11/09/2023 08:24:10 11/01/19 24 22690, G0480, G0481 cancelled Mei Velasco, RN [address] [place] [address], [address], [facility] 10/28/2023 08:31:09 10/26/19 24 86299, G0480, G0481 completed Mei Velasco, RN [address] [place] [address], [address], [facility] 10/25/2023 08:15:43 10/21/19 24 39156, G0480, G0481 cancelled Mei Velasco RN [address] [place] [address], [address], [facility] 10/18/2023 14:31:59 10/14/19 24 80831, G0480, G0481 completed Mei Velasco, HELGA [address] [place] [address], [address], [facility] 10/12/2023 08:04:50 10/08/19 24 12055, G0480, G0481 completed Gloria Ara null, [facility] 10/08/2023 09:11:27 10/01/19 24 74135, G0480, G0481 completed Gloria Bullock null, [facility] 10/01/2023 08:45:08 09/13/19 24 74533, G0480, G0481 completed Bailey Malhotra NP [address] [place] [address], [address], [facility] 09/13/2023 15:36:10 08/25/19 24 14058, G0480, G0481 completed Bailey Malhotra NP [address] [place] [address], [address], [facility] 08/23/2023 15:19:39 08/19/19 24 95899, G0480, G0481 completed Mei Velasco, HELGA [address] [place] [address], [address], [facility] 08/12/2023 11:29:14 08/02/19 24 62003, G0480, G0481 completed Bailey Malhotra NP [address] [place] [address], [address], [facility] 07/26/2023 08:06:55 07/13/19 24 04770, G0480, G0481 completed Mei Velasco, HELGA [address] [place] [address], [address], [facility] 07/12/2023 14:49:49 07/13/19 24 54461, G0480, G0481 cancelled Mei Velasco, HELGA [address] [place] [address], [address], [facility] 07/06/2023 10:00:04 06/24/20 23 53306, G0480, G0481 completed Mei Velasco, HELGA [address] [place] [address], [address], [facility] 06/22/2023 11:53:13 06/21/20 23 47846, G0480, G0481 cancelled Mei Velasco RN [address] [place], [address], [facility] 06/17/2023 08:16:42 06/10/20 23 87175, G0480, G0481 completed Mei Velasco, HELGA [address] [place] [address], [address], [facility] 06/10/2023 09:04:43 06/07/20 23 37911, G0480, G0481 cancelled Mei Velasco, HELGA [address] [place] [address], [address], [facility] 06/01/2023 08:48:57 05/24/20 23 04124, G0480, G0481 completed Mei Velasco, HELGA [address] [place] [address], [address], [facility] 05/19/2023 08:30:01 05/06/20 23 02216, G0480, G0481 completed Mei Velasco, HELGA [address] [place] [address], [address], [facility] 05/04/2023 11:32:09 04/22/20 23 66846, G0480, G0481 completed Mei Velasco, HELGA [address] [place], [address], [facility] 04/20/2023 12:28:12 04/15/20 23 71024, G0480, G0481 cancelled Mei Velasco RN [address] [place], [address], [facility] 04/13/2023 10:08:44 04/01/20 23 41179, G0480, G0481 completed Mei Velasco RN [address] [place], [address], [facility] 03/30/2023 11:51:30 03/18/20 23 83351, G0480, G0481 completed Bailey Malhotra, ENVIRONMENTAL SERVICES ASSISTANT [address] [place], [address], [facility] 03/17/2023 16:29:41 03/04/20 23 67931, G0480, G0481 completed Bailey Malhotra, ENVIRONMENTAL SERVICES ASSISTANT [address] [place], [address], [facility] 03/03/2023 18:22:34 02/19/20 23 57502, G0480, G0481 completed Bailey Malhotra, ENVIRONMENTAL SERVICES ASSISTANT [address] [place], [address], [facility] 02/18/2023 08:01:46 02/16/20 23 92087, G0480, G0481 cancelled Bailey Malhotra, ENVIRONMENTAL SERVICES ASSISTANT [address] [place], [address], [facility] 02/15/2023 11:26:49 02/12/20 23 61404, G0480, G0481 cancelled Bailey Malhotra, ENVIRONMENTAL SERVICES ASSISTANT [address] [place], [address], [facility] 02/09/2023 19:47:20 01/29/20 23 13790, G0480, G0481 completed Bailey Malhotra, ENVIRONMENTAL SERVICES ASSISTANT [address] [place], [address], [facility] 01/28/2023 08:05:49 01/15/20 23 75809, G0480, G0481 [facility]/14/2023 09:45:14 01/01/20 23 57861, G0480, G0481 completed Bailey Malhotra, ENVIRONMENTAL SERVICES ASSISTANT [address] [place], [address], [facility] 12/30/2022 20:03:40 12/18/19 23 77402, G0480, G0481 completed Bailey Malhotra, ENVIRONMENTAL SERVICES ASSISTANT [address] [place], [address], [facility] 12/10/2022 08:08:47 11/27/19 23 98504, G0480, G0481 completed Bailey Malhotra, ENVIRONMENTAL SERVICES ASSISTANT [address] [place], [address], [facility] 11/25/2022 15:17:16 11/13/19 23 43185, G0480, G0481 completed Mei Velasco RN [address] [place], [address], [facility] 11/12/2022 15:35:01 11/13/19 23 61045, G0480, G0481 cancelled Bailey Malhotra, ENVIRONMENTAL SERVICES ASSISTANT [address] [place], [address], [facility] 11/11/2022 15:07:26 10/30/19 23 80375, G0480, G0481 completed Bailey Malhotra, ENVIRONMENTAL SERVICES ASSISTANT [address] [place], [address], [facility] 10/28/2022 14:25:45 10/16/19 23 36698, G0480, G0481 completed Bailey Malhotra, ENVIRONMENTAL SERVICES ASSISTANT [address] [place], [address], [facility] 10/13/2022 12:07:59 10/02/19 23 61849, G0480, G0481 completed Bailey Malhotra, ENVIRONMENTAL SERVICES ASSISTANT [address] [place], [address], [facility] 09/24/2022 14:44:46 09/15/19 23 75222, G0480, G0481 [facility] 09/09/2022 08:25:32 08/27/19 23 73307, G0480, G0481 completed Bailey Malhotra, ENVIRONMENTAL SERVICES ASSISTANT [address] [place], [address], [facility] 08/27/2022 11:35:44 08/24/19 23 41814, G0480, G0481 cancelled Bailey Malhotra, ENVIRONMENTAL SERVICES ASSISTANT [address] [place], [address], [facility] 08/19/2022 11:24:01 08/10/19 23 37349, G0480, G0481 completed Bailey Malhotra, ENVIRONMENTAL SERVICES ASSISTANT [address] [place], [address], [facility] 08/07/2022 14:25:54 07/27/19 23 54772, G0480, G0481 completed Bailey Malhotra, ENVIRONMENTAL SERVICES ASSISTANT [address] [place], [address], [facility] 07/27/2022 08:47:25 07/09/19 23 60306, G0480, G0481 completed Bailey Malhotra, ENVIRONMENTAL SERVICES ASSISTANT [address] [place], [address], [facility] 07/08/2022 10:23:19 06/30/20 22 27296, G0480, G0481 completed Bailey Malhotra, ENVIRONMENTAL SERVICES ASSISTANT [address] [place], [address], [facility] 06/29/2022 19:27:44 06/25/20 22 54126, G0480, G0481 cancelled Bailey Malhotra, ENVIRONMENTAL SERVICES ASSISTANT [address] [place], [address], [facility] 06/23/2022 08:51:32 06/08/20 22 24763, G0480, G0481 completed Bailey Malhotra, ENVIRONMENTAL SERVICES ASSISTANT [address] [place], [address], [facility] 06/02/2022 15:41:43 05/21/20 22 99645, G0480, G0481 completed Bailey Malhotra, ENVIRONMENTAL SERVICES ASSISTANT [address] [place], [address], [facility] 05/20/2022 18:15:51 05/14/20 22 26407, G0480, G0481 completed Leila Sathya null, [facility] 05/13/2022 11:47:17 04/30/20 22 23039, G0480, G0481 completed Bailey Malhotra, ENVIRONMENTAL SERVICES ASSISTANT [address] [place], [address], [facility] 04/29/2022 13:38:25 04/23/20 22 97595, G0480, G0481 completed Leila Sathya null, [facility] 04/22/2022 09:54:52 04/16/20 22 26805, G0480, G0481 completed Bailey Malhotra, ENVIRONMENTAL SERVICES ASSISTANT [address] [place], [address], [facility] 04/14/2022 10:17:02 04/09/20 22 37414, G0480, G0481 completed Bailey Malhotra, ENVIRONMENTAL SERVICES ASSISTANT [address] [place], [address], [facility] 04/08/2022 10:11:58 04/02/20 22 38015, G0480, G0481 completed Bailey Malhotra, ENVIRONMENTAL SERVICES ASSISTANT [address] [place], [address], [facility] 04/01/2022 08:39:45 03/26/20 22 15889, G0480, G0481 completed Bailey Malhotra, ENVIRONMENTAL SERVICES ASSISTANT [address] [place] [address], [address], [facility] 03/25/2022 13:40:25 03/18/20 22 58270, G0480, G0481 completed Leila Mcdonnell null, [facility] 03/17/2022 15:20:33 07/05/19 13 cholecystectomy completed Kareen Feliciano NP [address] [place], [address], [facility] 03/18/2022 09:51:20 Imaging Results None recorded. Procedure [...] Address Organization Details Last Updated DateTime 4 97.2 [degF] 98 % 98 % 101 /min 120 mm[Hg] 80 mm[Hg] [facility] 4 13:18:30 Social History Question Answer Notes LastModified by Organizat ion Details LastModified Time *Housing Stable - Safe Living With Bf In Appt Information not available 03/18/2022 *Employment Retired/Disabl ed Information not available 03/18/2022 *Food Adequate Information no t available 03/18/2022 *[place] Not A Information not available 03/18/2022 *Job Training/Educa tion/Literacy Not Needed Information not available 03/18/2022 *Legal Status No Legal Issues Information not available 03/18/2022 *Legal Assistance Patient Declined Information not available 03/18/2022 *Custody Of Dependent Children Partial Custody Full Of 3 And Shared Of 1 Child Information not available 03/18/2022 *Social Service's Involvement With Dependent Children No Wastewater Technician Involvement Information not available 03/18/2022 *Childcare Needed No Information not available 03/18/2022 *Concern For Domestic Violence No Information not available 03/18/2022 *Primary Care Provider Yes Kelle Amadon Information not available 03/18/2022 *Other Medical Issues [...] History Condition Response Prescribed Psychiatric Medication Y Stomach/Intestinal Problems Y Psychiatric/Mental Health Condition Y Gynecological HistoryNo gynecological history recorded. Obstetrics History GPAL:G 0 P 0 0 0 0 Past Encounters Encounter ID Performer Location Encounter Start Date Encounter Closed Date Diagnosis/Indication Diagnosis SNOMED-CT Code [id number] Kareen Feliciano NP [place] [address] 12/01/2023 09:39:04 12/01/2023 10:24:49 Opioid dependence 30266163 Alcohol dependence 40721 003 Chronic pancreatitis 235 [id number] Attention deficit hyperactivity disorder 025212094 [id number] Kareen Feliciano NP [place] [address] 12/24/2023 13:09:42 12/24/2023 13:45:03 Opioid dependence 03944025 Alcohol dependence 67208 003 Chronic pancreatitis 235 554639 Attention deficit hyperactivity disorder 943128013 Goals Section Goal Description Status Start Date LastModified by Organization Details LastModified Time Patient demonstrates improved behaviors to maintain health None Recorded Goal not achieved 023 Mei Billado Information not available 10/01/2022 14:03:59 Decreased Alcohol Consumption Reports decreased alcohol consumption as per care team recommendation( s) Goal not achieved 023 Mei Billado Information not available 04/22/2023 13:03:57 Adequate Housing Conditions Maintains adequate housing with satisfactory living conditions Goal not achieved 024 Mei Billado Information not available 12/23/2023 18:45:06 Diet Adherence [...] coping methods Goal not achieved 024 Mei Velasco Information not available 12/23/2023 18:45:07 Quality of Life Reports satisfaction with quality of life Goal not achieved 024 Mei Velasco Information not available 12/23/2023 18:45:08 Health Concerns Section Related Observation LastModified by Organization Detai ls LastModified Time General health poor Not Available Not Available Not Av ailable Concern Status LastModified by Organization Details LastModified Time opioid dependence Active [facility] PATCH Not Availa ble 03/10/2023 09:17:01 Daily drinker Active Mei Billado Not Available 04/04 13:03:44 Payers Encounter Date Sequence Insurance Name Policy Number Policy Low Covered Member ID Low Member ID Guarantor Name 12/24/2023 1 [employer] (MEDICARE REPLACEMENT/A DVANTAGE - PPO) Dolly Alexis [id number] Dolly Alexis Notes Date Note Type Note Provider Name and Address Organization Details Recorded Time 12/24/2023 text/html HPI Notes: This patient is here today for their follow-up MAT visit. They are being treated for OUD with buprenorphine. PLEASE SEE A & P SECTION FOR FULL VISIT NOTE Kareen Feliciano NP [address] [place] [address], [address], [facility] [employer] 12/26/2023 12:15:46 OBGyn Episode No OBEpisode recorded.
--- OUTSIDE RECORDS SUMMARY | 2024-02-06 00:57 | XMS_ITS | Continuity of Care Document ---
Author Organization [place] [facility], [place] Address [address] [facility] [facility] [address] [place] [address] Care Team Providers Care Inventory Technician Name Role Phone KELLE CUELLAR Primary Care Provider [phone] BAILEY MALHOTRA Internal Medicine MEI VELASCO OTHER Unavailable SATHISH EVANS OTHER Unavailable Assessment Encounter Date Assessment Date Assessment LastModified by Organization Details LastModified Time 12/01/2023 12/01/2023 Telemedicine Information: This telmed (audio + visual) appointment provided a MAT prescription. Time Start: 1000; Time End:1015 Provider Location: home; Patient Location: office ([facility]) Telemedicine Consent Given (verbal): Y This patient with a history of OUD, AUD and ADHD, presents today for their weekly MAT visit Current prescription is: buprenorphine/nalo xone 16mg films Patient denies any S/E, cravings, or withdrawal sx at current dose Update Since Last Visit : (narrative note): This provider assuming pt DAVID care, x1 prior encounter with patient. At onset of visit today, pt appearing restless, anxious, minimal eye contact, scratching at arms, legs. Pt not unpleasant, yet rushing visit along stating, I really don't feel good today, haven't had my dose. Missed appt and then you guys were closed on Wednesday b/c of the holiday. Patient Denies all illicit drug use since last visit OUD: -VPMS reflects suboxone dose overdue #8 days. -Pt clarifies, she has been taking 8 mg tdd to avoid being w/o dose. -Reports opi w/d symptoms well managed with 16 mg tdd. -Requesting biweekly visit frequency due to cost, reportedly having to pay $45/visit. AUD : SHEN 0.000% Last use: I only have a couple of wine coolers here or there, but nothing since the hospital. Reports recent medical event has helped to avoid all alcohol use. Denies feeling she has had any recent issues with AUD, stating It was more of a habit, I would have a drink or two after putting my kid to bed. Pulse elevated today, 114 bpm. MED: 10/2023, Recent hospitalization : 10/27/2023, hospitalized for PNA, incidental findings included [...] - Referred to GI Soc: [place]. Lives with and kids. (ages?) Does not work outside the home. LAB RESULTS Last UDS result (qualitative screen): 11/15POS buprenorphine and POS for prescribed meds: amphetamines Last confirmatory test result (LCMS/quantitative ): Quantitative levels of: amphetamine (>1500) Last Bup confirmation was performed on 11/16/2023 with the result: Bup: 190 ng/ml & Norbup: 1200 ng/ml Last LFT result: 10/27/23 Chronically elevated LFTs (see hosp documentation) Prescribed medication monthly last performed (if applicable): 11/16/2023 ASSESSMENT The patient's current phase of OUD treatment is: Stable maintenance, OUD, chronic use other. Interpretation of last buprenorphine confirmation test result: No concern Medication dose: No report of severe or persistent cravings/withdrawa l symptoms. Pt will remain at current dose AUD, unstable: Given restlessness, elevated pulse, question if possible combination of alcohol and opioid w/d. Recommend BH as part of tx plan. Pt appears precontemplative PLAN (narrative, if applicable) Med: -Repeat LFT 3 mth. -Attend all med f/u visits. -sign HELADIO for [facility], request GI consult notes AUD: -Start BH, recommend alternating with visits 1-2x/mth and on wk pt not seen by MAT provider. -Continue to closely monitor. OUD: Resume suboxone 16 mg. Given hx of missed visits and financial barrier reported today, trial biweekly MAT visits (alternating with BH visits). Rx : Continue buprenorphine/nalo xone 16mg films daily Rx Quantity 14d Rx provided today. VISIT FREQUENCY Advance to biweekly visits and UDS. Treatment plan review or change includes continue current level of care UDS Collection Date: 12/01/2023 Orders: Routine Screen Reflex Testing amph n/a given adderall Rx. LFTS will be repeated per our clinical protocol. Prescription monitoring program is reviewed. If applicable, I have identified agents prescribed to the patient in addition to any issued by our program. The patient has been counseled regarding any risk of combining sedating agents. [email or web address] Not available 12/01/2023 11:56:28 Plan of Treatment Reminders Order Date Submit Date Provider Last Modified By Organization Details Last Modified Time Details Appointments None recorded. Lab ethanol, breath 2023 024 [email or web address] [facility] , [address] [address], [place], [address], 07:56:58 drug screen, urine 2023 024 [facility], [address] [place], [address], 4 13:50:53 ethanol, QL, screen, urine 2023 024 [facility], [address] [place], [address], 4 13:51:29 additional order codes 2023 024 [facility], [address] [place], [address], 4 09:59:27 additional order codes 2023 [facility], [address] [place] [place], [address], 4 09:59:30 additional order codes 2023 024 [facility], [address] [place], [address], 4 09:59:35 additional order codes 2023 024 [facility], [address] [place], [address], 4 09:59:32 additional order codes 2023 024 [facility], [address] [place], [address], 4 09:59:24 additional order codes 2023 024 [facility], [address] [place], [address], 4 09:59:25 test, urine 2023 024 [email or web address] [facility], [address], [address], 09:59:24 Referral None recorded. Procedures None recorded. Surgeries None recorded. Imaging None recorded. Medication Orders Suboxone 8 mg-2 mg sublingual film 2023 024 [facility], [address] [place], [address], 09:59:25 Patient TargetsNo targets recorded. Patient InstructionsNo instructions recorded. Reason for Referral None Reported. Results Created Date Observation Date Name Description Value Unit Range Abnormal Flag LastModifiedBy Organization Detail LastModifiedTime 12/01/19 24 12/01/2023 pregn ata test, urine HCG negati ve Not Available [facility] [address] [facility] [address], [place], [address], 12/01/2023 09:47:59 Result Notes None recorded. Problems Name Status Onset Date Resolution Date Notes Provider Name and Address Organization Details Recorded Time Alcohol dependence Active 2023 Kareen Feliciano NP [address] [facility], [address], [facility] [employer] [facility] 4 10:07:34 Opioid dependence Active 2021 Kareen Feliciano NP [address] [facility] [place], [address], [facility] [employer] 3 10:02:05 Attention deficit hyperactivity disorder Active 2021 Bailey Malhotra NP [address] [facility] [place], [address], [facility] [employer] 4 10:17:39 Insomnia Active 2021 Kareen Feliciano NP [address] [facility] [place], [address], [facility] [employer] 2 09:51:50 Chronic pancreatitis Active 2021 Dx 2012, most recent flare up required hospitalization 10/2023 Kareen Feliciano NP [address] [facility] [place], [address], [facility] [employer] 4 10:09:29 Daily drinker Active 2022 Bailey Malhotra NP [address] [facility] [place], [address], [facility] [employer] [facility] 3 08:12:09 Problem Notes None recorded. Procedures Surgical History Date Name Laterality Status Provider Name and Address Organization Details Recorded Time 01/14/20 24 97738, G0480, G0481 cancelled Mei Velasco RN [address] [place] [address], [address], [facility] [employer] 01/03/2024 08:39:07 12/24/19 24 24547, G0480, G0481 completed Mei Velasco RN [address] [place] [address], [address], [place] [employer] 12/23/2023 09:42:52 12/01/19 24 30584, G0480, G0481 completed Mei Velasco, RN [address] [place] [address], [address], [facility] 11/30/2023 13:15:06 11/23/19 24 37936, G0480, G0481 cancelled Mei Velasco, RN [address] [place] [address], [address], [facility] 11/22/2023 08:38:57 11/16/19 24 17238, G0480, G0481 completed Mei Velasco, RN [address] [place] [address], [address], [facility] 11/15/2023 09:03:08 11/09/19 24 83157, G0480, G0481 completed Mei Velasco, RN [address] [place] [address], [address], [facility] 11/09/2023 08:24:10 11/01/19 24 40094, G0480, G0481 cancelled Mei Velasco, RN [address] [place] [address], [address], [facility] 10/28/2023 08:31:09 10/26/19 24 91088, G0480, G0481 completed Mei Velasco, RN [address] [place] [address], [address], [facility] 10/25/2023 08:15:43 10/21/19 24 87231, G0480, G0481 cancelled Mei Velasco, RN [address] [place] [address], [address], [facility] 10/18/2023 14:31:59 10/14/19 24 64854, G0480, G0481 completed Mei Velasco, RN [address] [place] [address], [address], [facility] 10/12/2023 08:04:50 10/08/19 24 66220, G0480, G0481 completed Gloria guerrero, [facility] 10/08/2023 09:11:27 10/01/19 24 06715, G0480, G0481 completed Gloria guerrero, [facility] 10/01/2023 08:45:08 09/13/19 24 92502, G0480, G0481 completed Bailey Malhotra, [employer] [address] [place] [address], [address], [facility] 09/13/2023 15:36:10 08/25/19 24 81926, G0480, G0481 completed Bailey Malhotra, PHILOMENA [address] [place] [address], [address], [facility] 08/23/2023 15:19:39 08/19/19 24 78898, G0480, G0481 completed Mei Velasco RN [address] [place] [address], [address], [facility] 08/12/2023 11:29:14 08/02/19 24 57675, G0480, G0481 completed Bailey Malhotra NP [address] [place] [address], [address], [facility] 07/26/2023 08:06:55 07/13/19 24 13082, G0480, G0481 completed Mei Velasco RN [address] [place] [address], [address], [facility] 07/12/2023 14:49:49 07/13/19 24 16804, G0480, G0481 cancelled Mei Velasco RN [address] [place] [address], [address], [facility] 07/06/2023 10:00:04 06/24/20 23 28607, G0480, G0481 completed Mei Velasco RN [address] [place] [address], [address], [facility] 06/22/2023 11:53:13 06/21/20 23 64282, G0480, G0481 cancelled Mei Velasco RN [address] [place] [address], [address], [facility] 06/17/2023 08:16:42 06/10/20 23 31796, G0480, G0481 completed Mei Velasco RN [address] [place], [address], [facility] 06/10/2023 09:04:43 06/07/20 23 93436, G0480, G0481 cancelled Mei Velasco RN [address] [place] [address], [address], [facility] 06/01/2023 08:48:57 05/24/20 23 89100, G0480, G0481 completed Mei Velasco, HELGA [address] [place] [address], [address], [facility] 05/19/2023 08:30:01 05/06/20 23 26996, G0480, G0481 completed Mei Velasco RN [address] [place] [address], [address], [facility] 05/04/2023 11:32:09 04/22/20 23 57004, G0480, G0481 completed Mei Velasco RN [address] [place] [address], [address], [facility] 04/20/2023 12:28:12 04/15/20 23 36049, G0480, G0481 cancelled Mei Velasco RN [address] [place] [address], [address], [facility] 04/13/2023 10:08:44 04/01/20 23 55793, G0480, G0481 completed Mei Velasco RN [address] [place] [address], [address], [facility] 03/30/2023 11:51:30 03/18/20 23 31644, G0480, G0481 completed Bailey Malhotra NP [address] [place] [address], [address], [facility] 03/17/2023 16:29:41 03/04/20 23 91404, G0480, G0481 completed Bailey Malhotra, PHILOMENA [address] [place] [address], [address], [facility] 03/03/2023 18:22:34 02/19/20 23 71925, G0480, G0481 completed Bailey Malhotra NP [address] [place] [address], [address], [facility] 02/18/2023 08:01:46 02/16/20 23 70912, G0480, G0481 cancelled Bailey Malhotra, [employer] [address] [place], [address], [facility] 02/15/2023 11:26:49 02/12/20 23 24668, G0480, G0481 cancelled Bailey Malhotra, [employer] [address] [place], [address], [facility] 02/09/2023 19:47:20 01/29/20 23 71594, G0480, G0481 completed Bailey Malhotra, [employer] [address] [place], [address], [facility] 01/28/2023 08:05:49 01/15/20 23 49698, G0480, G0481 [facility] 01/14/2023 09:45:14 01/01/20 23 23852, G0480, G0481 completed Bailey Malhotra, [employer] [address] [place], [address], [facility] 12/30/2022 20:03:40 12/18/19 23 80776, G0480, G0481 completed Bailey Malhotra, [employer] [address] [place], [address], [facility] 12/10/2022 08:08:47 11/27/19 23 65197, G0480, G0481 completed Bailey Malhotra, [employer] [address] [place], [address], [facility] 11/25/2022 15:17:16 11/13/19 23 60494, G0480, G0481 completed Mei Velasco, HELGA [address] [place], [address], [facility] 11/12/2022 15:35:01 11/13/19 23 40205, G0480, G0481 cancelled Bailey Malhotra, [employer] [address] [place], [address], [place] [facility] 11/11/2022 15:07:26 10/30/19 23 53613, G0480, G0481 completed Bailey Malhotra, [employer] [address] [place], [address], [facility] 10/28/2022 14:25:45 10/16/19 23 28068, G0480, G0481 completed Bailey Malhotra, [employer] [address] [place], [address], [facility] 10/13/2022 12:07:59 10/02/19 23 08111, G0480, G0481 completed Bailey Malhotra, [employer] [address] [place], [address], [facility] 09/24/2022 14:44:46 09/15/19 23 06369, G0480, G0481 completed [facility] 09/09/2022 08:25:32 08/27/19 23 03064, G0480, G0481 completed Bailey Malhotra, [employer] [address] [place], [address], [facility] 08/27/2022 11:35:44 08/24/19 23 13806, G0480, G0481 cancelled Bailey Malhotra, [employer] LE[employer]ELOPER [address] [place], [address], [facility] 08/19/2022 11:24:01 08/10/19 23 36866, G0480, G0481 completed Bailey Malhotra, [employer]ELOPER [address] [place], [address], [facility] 08/07/2022 14:25:54 07/27/19 23 96505, G0480, G0481 completed Bailey Malhotra, [employer]ELOPER [address] [place], [address], [facility] 07/27/2022 08:47:25 07/09/19 23 15926, G0480, G0481 completed Bailey Malhotra, [employer]ELOPER [address] [place], [address], [facility] 07/08/2022 10:23:19 06/30/20 22 34418, G0480, G0481 completed Bailey Malhotra, [employer]EL[employer] [address] [place], [address], [facility] 06/29/2022 19:27:44 06/25/20 22 96301, G0480, G0481 cancelled Bailey Malhtora, [employer] [address] [place], [address], [facility] 06/23/2022 08:51:32 06/08/20 22 68628, G0480, G0481 completed Bailey Malhotra, [employer] LE[employer]ELOPER [address] [place], [address], [facility] 06/02/2022 15:41:43 05/21/20 22 55621, G0480, G0481 completed Bailey Malhotra, [employer]ELOPER [address] [place], [address], [facility] 05/20/2022 18:15:51 05/14/20 22 54496, G0480, G0481 completed Leila Sathya null, [facility] 05/13/2022 11:47:17 04/30/20 22 92592, G0480, G0481 completed Bailey Malhotra, [employer]EL[employer] [address] [place], [address], [facility] 04/29/2022 13:38:25 04/23/20 22 74929, G0480, G0481 completed Leila Sathya null, [facility] 04/22/2022 09:54:52 04/16/20 22 60792, G0480, G0481 completed Bailey Malhotra, [employer] LE[employer]ELOPER [address] [place], [address], [facility] 04/14/2022 10:17:02 04/09/20 22 33249, G0480, G0481 completed Bailey Malhotra, [employer] [address] [place], [address], [facility] 04/08/2022 10:11:58 04/02/20 22 34788, G0480, G0481 completed Bailey Malhotra, [employer]EL[employer] [address] [place], [address], [place] [facility] 04/01/2022 08:39:45 03/26/20 22 34842, G0480, G0481 completed Bailey Malhotra, [employer]EL[employer] [address] [place], [address], [facility] 03/25/2022 13:40:25 03/18/20 22 41617, G0480, G0481 [facility] 03/17/2022 15:20:33 07/05/19 13 cholecystectomy completed Kareen Feliciano, PHILOMENA [address] [place], [address], [facility] 03/18/2022 09:51:20 Imaging Results None recorded. [...] Available Not Avai lable Vitals Date Recorded Oxygen saturation Oxygen saturation in Arterial blood by Pulse oximetry Heart rate Body temperature Systolic blood pressure Diastolic blood pressure Provider Name and Address Organization Details Last Updated DateTime 4 100 % 100 % 114 /min 97.6 [degF] 124 mm[Hg] 84 mm[Hg] Gloria Bullock [facility] 09:43:07 Social History Question Answer Notes LastModified by Organizat ion Details LastModified Time *Housing Stable - Safe Living With Bf In Appt Information not available 03/18/2022 *Employment Retired/Disabl ed Information not available 03/18/2022 *Food Adequate Information no t available 03/18/2022 *[place] Not A Information not available 03/18/2022 *Job Training/Educa tion/Literacy Not Needed Information not available 03/18/2022 *Legal Status No Legal Issues Information not available 03/18/2022 *Legal Assistance Patient Declined Information not available 03/18/2022 *Custody Of Dependent Children Partial Custody Full Of 3 And Shared Of 1 Child Information not available 03/18/2022 *Social Service's Involvement With Dependent Children No Analyst Food And Beverage Involvement Information not available 03/18/2022 *Childcare Needed [...] Encounter Closed Date Diagnosis/Indication Diagnosis SNOMED-CT Code [id number] Bailey Malhotra NP [place] [address] [place] [address] 11/09/2023 08:48:58 11/09/2023 09:11:40 Opioid dependence 14160958 Alcohol dependence 51696 846 [id number] ELVIRA Hall [place] [address] [place] [address] 11/16/2023 10:58:35 11/16/2023 11:47:20 Opioid dependence 58079338 Alcohol dependence 75926 003 Chronic pancreatitis 235 [id number] Kareen Feliciano NP [place] [address] [place] [address] 12/01/2023 09:39:04 12/01/2023 10:24:49 Opioid dependence [id number] Alcohol dependence 74552 003 Chronic pancreatitis 235 924396 Attention deficit hyperactivity disorder [id number] Goals Section Goal Description Status Start Date [...] Member ID Low Member ID Guarantor Name 12/01/2023 1 [employer] (MEDICARE REPLACEMENT/A DVANTAGE - PPO) Dolly Alexis [id number] Dolly Alexis Notes Date Note Type Note Provider Name and Address Organization Details Recorded Time 12/01/2023 text/html HPI Notes: This patient is here today for their follow-up MAT visit. They are being treated for OUD with buprenorphine. PLEASE SEE A & P SECTION FOR FULL VISIT NOTE Kareen Feliciano, PHILOMENA [address] [place] [address], [phone], [facility] 12/01/2023 12:03:02 OBGyn Episode No OBEpisode recorded.
--- OUTSIDE RECORDS SUMMARY | 2024-02-06 00:57 | XMS_ITS | Continuity of Care Document ---
Author Organization [facility] [employer], [place]_Medical_[facility] Address [address] [facility] [address] [place] [address] Care Team Providers Care Production Operations Manager Name Role Phone KELLE CUELLAR Primary Care Provider [facility] Internal Medicine [phone] MEI VELASCO OTHER Unavailable SATHISH EVANS OTHER Unavailable Assessment Encounter Date Assessment Date Assessment LastModified by Organization Details LastModified Time 11/09/2023 11/09/2023 Telemedicine Information: This telemed (audio + visual) appointment provided a MAT prescription. Time Start: 868; Time End: 905 Provider Location: office; Patient Location: office Telemedicine Consent Given (verbal): Y This patient with a history of OUD presents today for their weekly MAT visit Current prescription is: buprenorphine/na loxone 16mg films Patient denies any S/E, cravings, or withdrawal sx at current dose Update Since Last Visit : Patient last seen on 10/26/23 No show on 11/01/23 See PC regarding hospital stay I'm great, I'm doing great. Dismissive of health concerns, with significant questioning, does acknowledge follow-up with GI and PCP November 14 to evaluate something on my pancreas States it was just that I had pneumonia Reluctantly admits yeah, they told me to stop drinking, I knew that would be your next question. I feel so much better now, it's going great. Says she hasn't had any alcohol at all, though at the end of visit says I mean, I've only had some wine coolers SHEN in office 0.00% Did receive suboxone while in hospital so had enough to last her until today Denies questions or concerns LAB RESULTS Last UDS result (qualitative screen): POS buprenorphine and POS for prescribed meds: amphetamines, +EtOH Last confirmatory test result (LCMS/quantitati ve): Quantitative levels of: Rx amphetamines >1,500 Last Bup confirmation was performed on 10/08/2023 with the result: Bup: 682.8 ng/ml & Norbup: 349.5 ng/ml Last LFT result: Overdue for lab work Prescribed medication monthly last performed (if applicable): 10/01/2023 ASSESSMENT The patient's current phase of OUD treatment is: Stable maintenance, OUD, chronic use other. Interpretation of last buprenorphine confirmation test result: No concern Medication dose: No report of severe or persistent cravings/withdra wal symptoms. Pt will remain at current dose PLAN Patient brought discharge paperwork from hospital stay and gave to MR to scan into chart HELADIO for GI signed Rx : Continue buprenorphine/na loxone 16mg films daily Rx Quantity: 7d Rx provided today. Visit Frequency: Continue weekly visits and UDS. Routine UDS orders today Treatment plan review or change includes continue current level of care LFTS will be repeated per our clinical protocol. Prescription monitoring program is reviewed. If applicable, I have identified agents prescribed to the patient in addition to any issued by our program. The patient has been counseled regarding any risk of combining sedating agents. [email or web address] Not available 11/09/2023 09:18:21 Plan of Treatment Reminders Order Date Submit Date Provider Last Modified By Organization Details Last Modified Time Details Appointments None recorded. Lab ethanol, breath 2023 [email or web address] [facility] , [address] [place] [address], [place], [address], 4 07:55:55 drug screen, urine 2023 [email or web address], [address] [place], [address], 11:26:59 ethanol, QL, screen, urine 2023 024 [place] [facility], [address] [place], [address], 4 11:26:57 additional order codes 2023 [email or web address], [address] [place], [address], 4 09:19:09 additional order codes 2023 024 [facility], [address] [place], [address], 4 09:19:11 additional order codes 2023 024 [place] [facility], [address] [place], [address], 4 09:19:08 additional order codes 2023 024 [facility], [address] [place], [address], 4 09:19:05 additional order codes 2023 024 [place] [facility], [address] [place], [address], 4 09:19:15 additional order codes 2023 024 [place] [facility], [address] [place], [address], 4 09:19:14 additional order codes 2023 024 [place] [facility], [address] [place], [address], 4 09:19:07 Referral None recorded. Procedures None recorded. Surgeries None recorded. Imaging None recorded. Medication Orders Suboxone 8 mg-2 mg sublingual film 2023 024 [facility], [address] [facility], [place], [address], 09:18:51 Patient TargetsNo targets recorded. Patient InstructionsNo instructions recorded. Reason for Referral None Reported. Problems Name Status Onset Date Resolution Date Notes Provider Name and Address Organization Details Recorded Time Alcohol dependence Active 2023 Kareen Feliciano NP [address] [place], [address], [facility] 4 10:07:34 Opioid dependence Active 2021 Kareen Feliciano NP [address] [facility] [place], [address], [facility] 3 10:02:05 Attention deficit hyperactivity disorder Active 2021 Yelitza Malhotra NP [address] [place], [address], [facility] 4 10:17:39 Insomnia Active 2021 Kareen Feliciano NP [address] [place], [address], [facility] 2 09:51:50 Chronic pancreatitis Active 2021 Dx 2012, most recent flare up required hospitalization 10/2023 Kareen Feliciano NP [address] [place], [address], [facility] 4 10:09:29 Daily drinker Active 2022 Yelitza Malhotra NP [address] [place], [address], [facility] 3 08:12:09 Problem Notes None recorded. Procedures Surgical History Date Name Laterality Status Provider Name and Address Organization Details Recorded Time 01/14/20 24 85109, G0480, G0481 cancelled Mei Velasco RN [address] [place] [address], [address], [facility] 01/03/2024 08:39:07 12/24/19 24 16661, G0480, G0481 completed Mei Velasco RN [address] [place] [address], [address], [facility] 12/23/2023 09:42:52 12/01/19 24 68439, G0480, G0481 completed Mei Velasco RN [address] [place] [address], [address], [facility] 11/30/2023 13:15:06 11/23/19 24 41028, G0480, G0481 cancelled Mei Velasco, RN [address] [place] [address], [address], [facility] 11/22/2023 08:38:57 11/16/19 24 74366, G0480, G0481 completed Mei Velasco, RN [address] [place] [address], [address], [facility] 11/15/2023 09:03:08 11/09/19 24 01358, G0480, G0481 completed Mei Velasco, RN [address] [place] [address], [address], [facility] 11/09/2023 08:24:10 11/01/19 24 08324, G0480, G0481 cancelled Mei Velasco, RN [address] [place] [address], [address], [facility] 10/28/2023 08:31:09 10/26/19 24 18109, G0480, G0481 completed Mei Velasco, RN [address] [place] [address], [address], [facility] 10/25/2023 08:15:43 10/21/19 24 56742, G0480, G0481 cancelled Mei Velasco, RN [address] [place] [address], [address], [facility] 10/18/2023 14:31:59 10/14/19 24 94230, G0480, G0481 completed Mei Velasco, RN [address] [place] [address], [address], [facility] 10/12/2023 08:04:50 10/08/19 24 07339, G0480, G0481 completed Gloria Bullock null, [facility] 10/08/2023 09:11:27 10/01/19 24 51492, G0480, G0481 completed Gloria Bullock null, [facility] 10/01/2023 08:45:08 09/13/19 24 48469, G0480, G0481 completed Yelitza Malhotra NP [address] [place] [address], [address], [facility] 09/13/2023 15:36:10 08/25/19 24 88045, G0480, G0481 completed Yelitza Malhotra, PHILOMENA [address] [place] [address], [address], [facility] 08/23/2023 15:19:39 08/19/19 24 84779, G0480, G0481 completed Mei Velasco, HELGA [address] [place] [address], [address], [facility] 08/12/2023 11:29:14 08/02/19 24 51326, G0480, G0481 completed Yelitza Malhotra NP [address] [place] [address], [address], [facility] 07/26/2023 08:06:55 07/13/19 24 16054, G0480, G0481 completed Mei Velasco RN [address] [place] [address], [address], [facility] 07/12/2023 14:49:49 07/13/19 24 49242, G0480, G0481 cancelled Mei Velasco RN [address] [place] [address], [address], [facility] 07/06/2023 10:00:04 06/24/20 23 91209, G0480, G0481 completed Mei Velasco, HELGA [address] [place] [address], [address], [facility] 06/22/2023 11:53:13 06/21/20 23 85135, G0480, G0481 cancelled Mei Velasco, HELGA [address] [place] [address], [address], [facility] 06/17/2023 08:16:42 06/10/20 23 87485, G0480, G0481 completed Mei Velasco, HELGA [address] [place] [address], [address], [facility] 06/10/2023 09:04:43 06/07/20 23 44327, G0480, G0481 cancelled Mei Velasco RN [address] [place] [address], [address], [facility] 06/01/2023 08:48:57 05/24/20 23 00605, G0480, G0481 completed Mei Velasco RN [address] [place] [address], [address], [facility] 05/19/2023 08:30:01 05/06/20 23 99058, G0480, G0481 completed Mei Velasco, HELGA [address] [place] [address], [address], [facility] 05/04/2023 11:32:09 04/22/20 23 25462, G0480, G0481 completed Mei Velasco RN [address] [place] [address], [address], [facility] 04/20/2023 12:28:12 04/15/20 23 48261, G0480, G0481 cancelled Mei Velasco RN [address] [place] [address], [address], [facility] 04/13/2023 10:08:44 04/01/20 23 43136, G0480, G0481 completed Mei Velasco RN [address] [place] [address], [address], [facility] 03/30/2023 11:51:30 03/18/20 23 97113, G0480, G0481 completed Yelitza Malhotra, PHILOMENA [address] [place] [address], [address], [facility] 03/17/2023 16:29:41 03/04/20 23 04192, G0480, G0481 completed Yelitza Malhotra, ELECTROMECHANIC [address] [place] [address], [address], [facility] 03/03/2023 18:22:34 02/19/20 23 87139, G0480, G0481 completed Yelitza Malhotra, ELECTROMECHANIC [address] [place] [address], [address], [facility] 02/18/2023 08:01:46 02/16/20 23 06449, G0480, G0481 cancelled Yelitza Malhotra NP [address] [place], [address], [facility] 02/15/2023 11:26:49 02/12/20 23 25173, G0480, G0481 cancelled Yelitza Malhotra, ELECTROMECHANIC [address] [place], [address], [facility] 02/09/2023 19:47:20 01/29/20 23 24500, G0480, G0481 completed Yelitza Malhotra, ELECTROMECHANIC [address] [place], [address], [facility] 01/28/2023 08:05:49 01/15/20 23 90751, G0480, G0481 [facility] 01/14/2023 09:45:14 01/01/20 23 68928, G0480, G0481 completed Yelitza Malhotra, ELECTROMECHANIC [address] [place], [address], [facility] 12/30/2022 20:03:40 12/18/19 23 14072, G0480, G0481 completed Yelitza Malhotra, ELECTROMECHANIC [address] [place], [address], [facility] 12/10/2022 08:08:47 11/27/19 23 24990, G0480, G0481 completed Yelitza Malhotra, ELECTROMECHANIC [address] [place], [address], [facility] 11/25/2022 15:17:16 11/13/19 23 53837, G0480, G0481 completed Mei Velasco RN [address] [place] [address], [address], [facility] 11/12/2022 15:35:01 11/13/19 23 16055, G0480, G0481 cancelled Yelitza Malhotra, ELECTROMECHANIC [address] [place], [address], [facility] 11/11/2022 15:07:26 10/30/19 23 91397, G0480, G0481 completed Yelitza Malhotra, ELECTROMECHANIC [address] [place] [address], [address], [facility] 10/28/2022 14:25:45 10/16/19 23 46948, G0480, G0481 completed Yelitza Malhotra, ELECTROMECHANIC [address] [place], [address], [facility] 10/13/2022 12:07:59 10/02/19 23 64441, G0480, G0481 completed Yelitza Malhotra, ELECTROMECHANIC [address] [place], [address], [facility] 09/24/2022 14:44:46 09/15/19 23 48820, G0480, G0481 [facility] 09/09/2022 08:25:32 08/27/19 23 38996, G0480, G0481 completed Yelitza Malhotra, ELECTROMECHANIC [address] [place], [address], [facility] 08/27/2022 11:35:44 08/24/19 23 57740, G0480, G0481 cancelled Yelitza Malhotra, ELECTROMECHANIC [address] [place], [address], [facility] 08/19/2022 11:24:01 08/10/19 23 44595, G0480, G0481 completed Yelitza Malhotra, ELECTROMECHANIC [address] [place], [address], [facility] 08/07/2022 14:25:54 07/27/19 23 99253, G0480, G0481 completed Yelitza Malhotra, ELECTROMECHANIC [address] [place], [address], [facility] 07/27/2022 08:47:25 07/09/19 23 24142, G0480, G0481 completed Yelitza Malhotra, ELECTROMECHANIC [address] [place], [address], [facility] 07/08/2022 10:23:19 06/30/20 22 71829, G0480, G0481 completed Yelitza Malhotra, ELECTROMECHANIC [address] [place], [address], [facility] 06/29/2022 19:27:44 06/25/20 22 25083, G0480, G0481 cancelled Yelitza Malhotra, ELECTROMECHANIC [address] [place], [address], [facility] 06/23/2022 08:51:32 06/08/20 22 96853, G0480, G0481 completed Yelitza Malhotra, ELECTROMECHANIC [address] [place], [address], [facility] 06/02/2022 15:41:43 05/21/20 22 15742, G0480, G0481 completed Yelitza Malhotra, ELECTROMECHANIC [address] [place], [address], [facility] 05/20/2022 18:15:51 05/14/20 22 73867, G0480, G0481 completed Leila Sathya null, [facility] 05/13/2022 11:47:17 04/30/20 22 85868, G0480, G0481 completed Yelitza Malhotra, ELECTROMECHANIC [address] [place], [address], [facility] 04/29/2022 13:38:25 04/23/20 22 55835, G0480, G0481 completed Leila Sathya null, [facility] 04/22/2022 09:54:52 04/16/20 22 63414, G0480, G0481 completed Yelitza Malhotra, ELECTROMECHANIC [address] [place], [address], [facility] 04/14/2022 10:17:02 04/09/20 22 54396, G0480, G0481 completed Yelitza Malhotra, ELECTROMECHANIC [address] [place], [address], [facility] 04/08/2022 10:11:58 04/02/20 22 71382, G0480, G0481 completed Yelitza Malhotra, ELECTROMECHANIC [address] [place], [address], [facility] 04/01/2022 08:39:45 03/26/20 22 14282, G0480, G0481 completed Yelitza Malhotra, ELECTROMECHANIC [address] [place] [address], [address], [facility] 03/25/2022 13:40:25 03/18/20 22 62880, G0480, G0481 completed Leila guerrero, [place] [facility] 03/17/2022 15:20:33 07/05/19 13 cholecystectomy completed Kareen Feliciano NP [address] [place], [address], [facility] 03/18/2022 09:51:20 Imaging Results None recorded. Procedure [...] blood by Pulse oximetry Heart rate Body weight Systolic blood pressure Diastolic blood pressure Provider Name and Address Organization Details Last Updated DateTime 4 97.4 [degF] 99 % 99 % 111 /min 03092.0 1 g 134 mm[Hg] 88 mm[Hg] Gloria Bullock [facility] 4 08:52:13 Social History Question Answer Notes LastModified by Organizat ion Details LastModified Time *Housing Stable - Safe Living With Bf In Appt Information not available 03/18/2022 *Employment Retired/Disabl ed Information not available 03/18/2022 *Food Adequate Information no t available 03/18/2022 *[place] Not A [place] Information not available 03/18/2022 *Job Training/Educa tion/Literacy Not Needed Information not available 03/18/2022 *Legal Status No Legal Issues Information not available 03/18/2022 *Legal Assistance Patient Declined Information not available 03/18/2022 *Custody Of Dependent Children Partial Custody Full Of 3 And Shared Of 1 Child Information not available 03/18/2022 *Social Service's Involvement With Dependent Children No Senior Application Programmer Involvement Information not available 03/18/2022 *Childcare Needed [...] Encounter Closed Date Diagnosis/Indication Diagnosis SNOMED-CT Code [id number] Yelitza Malhotra NP [place]_Medical _[facility] [address] [facility] [address] [place] [address] 10/14/2023 08:09:28 10/14/2023 08:57:51 Opioid dependence [id number] Alcohol abuse [id number] Attention deficit hyperactivity disorder [id number] ELVIRA Hall ID_[facility] _[facility] [address] [facility] [address] [place] [address] 10/26/2023 11:23:54 10/26/2023 11:48:52 Opioid dependence 19853670 Alcohol dependence 66329 504 [id number] Yelitza Malhotra, ELECTROMECHANIC ID_[facility] [address] [facility] [address] [place] [address] 11/09/2023 08:48:58 11/09/2023 09:11:40 Opioid dependence 62157685 Alcohol dependence 52036 003 Goals Section Goal Description Status Start Date [...] Member ID Low Member ID Guarantor Name 11/09/2023 1 [employer] (MEDICARE REPLACEMENT/A DVANTAGE - PPO) Dolly Manning Waitt [id number] Dolly Waitt Notes Date Note Type Note Provider Name and Address Organization Details Recorded Time 11/09/2023 text/html HPI Notes: This patient is here today for their follow-up MAT visit. They are being treated for OUD with buprenorphine. PLEASE SEE A & P SECTION FOR FULL VISIT NOTE Yelitza Malhotra NP [address] [place] [address], [address], [facility] [employer] 11/09/2023 09:19:26 OBGyn Episode No OBEpisode recorded.
[2024-02-06] MEDS: MAGNESIUM SULFATE 2 GM/50 ML BAG IVINF (02:27)
[2024-02-06] MEDS: Famotidine 20 MG/2 ML VIAL IVP (02:27)
[2024-02-06] MEDS: Normal Saline Flush 10 ML SYR IVP ×4 (02:29→19:34)
--- NOTE | 2024-02-06 05:56 | W.PC.ACHO ---
Registration Status: Primary Language: Preferred Language: ED Information & Data Chief Complaint GenMedical 02/05/24 22:35 Chief Complaint GenMedical 02/05/24 22:15 Triage Note Pt arrives to ED stating she 02/05/24 22:01 has low K+ Pt had blood work yesterday which showed her K+ was 1.8. Pt advised to come to the ED at that time but was unable to. Pt states she has been feeling unwell x several days and is now having sternal CP 10/12 Medical / Surgical History (Last Updated 02/06/24 @ 01:09 by Junior Carvajal MD) Pancreatic pseudocyst Pancreatic mass Anasarca Ganglion cyst of dorsum of left wrist Colitis ADHD Opioid dependence on agonist therapy (Last Reviewed 02/05/24 @ 22:43 by Sandeep Roy MD) S/P cholecystectomy Most Recent Vital Signs Temperature 36.3 C L 02/06/24 01:27 Temperature Source Temporal Artery Scan 02/05/24 22:35 Pulse 94 H 02/06/24 01:27 Pulse Rhythm Regular 02/06/24 01:30 Respiratory Rate 20 02/06/24 01:27 Respiratory Effort Normal, Non-Labored 02/06/24 01:30 Respiratory Depth Normal 02/06/24 01:30 Respiratory Pattern Normal 02/06/24 01:30 Blood Pressure 126/84 02/06/24 01:27 Blood Pressure Position Sitting 02/05/24 22:35 Pulse Oximetry 20 L 02/06/24 01:27 Oxygen Delivery Method Room Air 02/06/24 01:27 Oxygen Flow Rate 0 02/06/24 01:27 Pain Level 0 02/06/24 01:27 Allergies No Known Allergies Allergy (Unverified 02/05/24 22:03) Precautions Isolation Standard precaution 02/05/24 22:35 Active Medications Generic Name Dose Route Start Last Admin Trade Name Freq PRN Reason Stop Dose Admin Sodium Chloride 1,000 mls @ 100 mls/hr 02/05/24 22:30 02/05/24 23:26 Saline 1000ml Bag IV 100 mls/hr INFUSION DIMAS Administration Sodium Chloride 0 ml 02/05/24 22:20 02/06/24 02:29 Normal Saline Flush 10 Ml Syr IVP 10 ml PRN PRN Administration Sodium Chloride 0 ml 02/06/24 01:06 02/06/24 02:30 Normal Saline Flush 10 Ml Syr IVP 10 ml PRN PRN Administration IV IV Catheter Type [Right Peripheral IV Antecubital] IV Catheter Gauge [Right 18 Antecubital] Diet Orders Category Date Time Status Regular/Normal [DIET] Nutrition 02/06/24 Breakfast Active Diagnostics 02/06/24 02/06/24 02/06/24 Range/Units 08:30 05:35 01:06 WBC Pending (4.4-10.8) 10^3/uL RBC Pending (3.93-5.22) 10^6/uL Hgb Pending (11.2-15.7) g/dL Hct Pending (36.0-46.0) % MCV Pending (80-95) fL MCH Pending (27.0-33.0) pg MCHC Pending (32.0-36.0) % RDW Pending (11.7-14.6) % Plt Count Pending (130-400) 10^3/uL MPV Pending (8.0-11.0) fL Reticulocyte % (Auto) Pending Immature Gran % Pending % Neutrophils % Pending % Lymphocytes % Pending % Monocytes % Pending % Eosinophils % Pending % Basophils % Pending % Nucleated RBC % (0.0-0.3) % Absolute Neutrophils Pending (1.2-6.7) 10^3/uL Absolute Lymphocytes Pending (1.2-3.4) 10^3/uL Absolute Monocytes Pending (0.1-0.8) 10^3/uL Absolute Eosinophils Pending (0.0-0.7) 10^3/uL Absolute Basophils Pending (0.0-0.2) 10^3/uL PT Pending INR Pending Sodium Pending (136-145) mmol/L Potassium Pending Pending (3.5-5.1) mmol/L Chloride Pending (98-107) mmol/L Carbon Dioxide Pending (21.0-32.0) mmol/L Anion Gap Pending (3-11) mmol/L BUN Pending (7-18) mg/dL Creatinine Pending (0.55-1.02) mg/dL Est GFR (CKD-EPI 2020) Pending (mL/min/1.73m2) Glucose Pending (74-106) mg/dL Calcium Pending (8.5-10.1) mg/dL Magnesium Pending (1.8-2.4) mg/dL Iron Pending TIBC Pending Transferrin Pending Transferrin % Sat Pending Ferritin Pending Total Bilirubin Pending (0.2-1.0) mg/dL AST Pending (15-37) U/L ALT Pending (14-59) U/L Alkaline Phosphatase Pending (46-116) U/L Troponin I (< or =60) ng/L NT-Pro-B Natriuret Pep (<300) pg/mL Total Protein Pending (6.4-8.2) g/dL Albumin Pending (3.4-5.0) g/dL Lipase (16-77) U/L Vitamin B12 Pending Folate Pending COVID-19 Source SARS-CoV-2 (PCR) (Negative) Influenza Type A (PCR) (Negative) Influenza Type B (PCR) (Negative) RSV (PCR) (Negative) 02/05/24 Range/Units 22:16 WBC 17.40 H (4.4-10.8) 10^3/uL RBC 2.71 L (3.93-5.22) 10^6/uL Hgb 9.3 L (11.2-15.7) g/dL Hct 25.2 L (36.0-46.0) % MCV 93 (80-95) fL MCH 34.3 H (27.0-33.0) pg MCHC 36.9 H (32.0-36.0) % RDW 14.4 (11.7-14.6) % Plt Count 448 H (130-400) 10^3/uL MPV 10.2 (8.0-11.0) fL Reticulocyte % (Auto) Immature Gran % 1.8 % Neutrophils % 74.4 % Lymphocytes % 14.1 % Monocytes % 7.1 % Eosinophils % 2.0 % Basophils % 0.6 % Nucleated RBC % 0.0 (0.0-0.3) % Absolute Neutrophils 12.95 H (1.2-6.7) 10^3/uL Absolute Lymphocytes 2.45 (1.2-3.4) 10^3/uL Absolute Monocytes 1.24 H (0.1-0.8) 10^3/uL Absolute Eosinophils 0.35 (0.0-0.7) 10^3/uL Absolute Basophils 0.10 (0.0-0.2) 10^3/uL PT INR Sodium 145 (136-145) mmol/L Potassium 1.6 L* (3.5-5.1) mmol/L Chloride 107 (98-107) mmol/L Carbon Dioxide 28.1 (21.0-32.0) mmol/L Anion Gap 9.9 (3-11) mmol/L BUN 3 L (7-18) mg/dL Creatinine 1.0 (0.55-1.02) mg/dL Est GFR (CKD-EPI 2020) 72.13 (mL/min/1.73m2) Glucose 157 H (74-106) mg/dL Calcium 7.5 L (8.5-10.1) mg/dL Magnesium 1.2 L (1.8-2.4) mg/dL Iron TIBC Transferrin Transferrin % Sat Ferritin Total Bilirubin 1.62 H (0.2-1.0) mg/dL AST 45 H (15-37) U/L ALT 45 (14-59) U/L Alkaline Phosphatase 239 H (46-116) U/L Troponin I < 50 (< or =60) ng/L NT-Pro-B Natriuret Pep 478 H (<300) pg/mL Total Protein 5.7 L (6.4-8.2) g/dL Albumin 1.3 L (3.4-5.0) g/dL Lipase 28 (16-77) U/L Vitamin B12 Folate COVID-19 Source Nasopharynx SARS-CoV-2 (PCR) Negative (Negative) Influenza Type A (PCR) Negative (Negative) Influenza Type B (PCR) Negative (Negative) RSV (PCR) Negative (Negative) Intake and Output - 24 Hour Total 02/05/24 21:54 thru 02/06/24 02:38 Intake Total 250 Balance 250 Weight 56.24 kg Intake: IV 250 Falls Risk Assessment History of Falls No History 02/06/24 01:27 Contributing Factors Medications 02/06/24 01:27 Ambulatory Aids Independent 02/06/24 01:27 Tubes/Lines With any additional score 02/06/24 01:27 Gait Evaluation No gait disturbance 02/06/24 01:27 Cognition No cognitive impairment 02/05/24 22:35 Fall Total Score 23 02/06/24 01:27 Level of Risk Standard/Low Risk 02/06/24 01:27 Problems (Last Updated 02/06/24 @ 01:09 by Junior Carvajal MD) Normocytic normochromic anemia (Acute) Hypokalemia (Acute) Hypoalbuminemia (Acute) Hypomagnesemia (Acute) Bilateral edema of lower extremity (Acute) v v v v v v v v v Sending and/or Receiving Nurses: Please use comment section below to note any information pertinent to the patient hand-off not included above. Information / Comments: Patient with history of anasarca, chronic pancreatitis, recovering opiate dependence presents to ED at the recommendation of her PCP for hypokalemia. Patient presents with potassium of 1.6; magnesium 1.2. IV and PO replacement given in ED. NSR on telemetry. VSS. Patient also endorses cough for last week or so, fluvid negative. Report received from: Jess, ED RN
[2024-02-06 06:46] LABS: Abs Immature Grans 0.19 10^3/uL (0.0-0.06); Absolute Basophil Count 0.13 10^3/uL (0.0-0.2); Absolute Lymphocyte Count 2.56 10^3/uL (1.2-3.4); Absolute Monocyte Count 0.91 10^3/uL (0.1-0.8); Absolute Neutrophil Count 12.44 10^3/uL (1.2-6.7); Basophils % 0.8 %; Eosinophils % 2.4 %; HCT 26.5 % (36.0-46.0); HGB 9.9 g/dL (11.2-15.7); Immature Grans % 1.1 %; Lymphocytes % 15.4 %; MCH 34.1 pg (27.0-33.0); MCHC 37.4 % (32.0-36.0); MCV 91 fL (80-95); MPV 10.3 fL (8.0-11.0); Monocytes % 5.5 %; Neutrophils % 74.8 %; Platelet Count 447 10^3/uL (130-400); RDW 14.4 % (11.7-14.6); RDW-SD 48.1 fL; WBC 16.63 10^3/uL (4.4-10.8)
[2024-02-06 06:55] LABS: Reticulocyte 4.5 % (0.5-2.4)
[2024-02-06 07:00] LABS: INR 1.2 (0.9-1.1); Prothrombin Time 11.7 sec (9.1-11.1)
[2024-02-06 07:14] LABS: Iron 94 ug/dL (50-170); Total Iron Binding Capacity 85 ug/dL (250-450); Transferrin Sat 111 % (15-50)
[2024-02-06 07:17] LABS: Ferritin 495 ng/mL (8-252)
[2024-02-06 07:28] LABS: ALT 43 U/L (14-59); AST 42 U/L (15-37); Albumin 1.7 g/dL (3.4-5.0); Alkaline Phosphatase 244 U/L (46-116); Anion Gap 7.8 mmol/L (3-11); BUN 1 mg/dL (7-18); Bilirubin, Total 1.78 mg/dL (0.2-1.0); CO2 28.2 mmol/L (21.0-32.0); CREATININE 0.8 mg/dL (0.55-1.02); Calcium 7.3 mg/dL (8.5-10.1); Chloride 108 mmol/L (98-107); Estimated GFR 94.28 (mL/min/1.73m2); Folate 2.7 ng/mL (8.6-20.0); Glucose 107 mg/dL (74-106); Magnesium 2.2 mg/dL (1.8-2.4); Sodium 144 mmol/L (136-145); Total Protein 5.7 g/dL (6.4-8.2); Vitamin B12 1867 pg/mL (193-986)
[2024-02-06 07:31] LABS: Potassium 1.6 mmol/L (3.5-5.1)
[2024-02-06] MEDS: Thiamine 100 MG TAB PO (08:10)
[2024-02-06] MEDS: Amphet Asp/Amphet/D-Amphet 10 MG TAB 30 MG PO (08:10)
[2024-02-06] MEDS: Folic Acid 1 MG TAB PO (08:10)
[2024-02-06] MEDS: Multivitamin TAB 1 TAB PO (08:11)
[2024-02-06] MEDS: Famotidine 20 MG TAB 40 MG PO ×2 (08:11→19:33)
[2024-02-06] MEDS: Magnesium Gluconate 500 MG TAB PO ×2 (08:11→19:33)
[2024-02-06] MEDS: Protein Nutritional Supplement 16 GM 1 OUNCE PACKET PO (08:12)
--- NOTE | 2024-02-06 08:16 | INITIAL_ITS ---
Date of service: 02/06/24 Time of Service: 08:16 Care Management Initial Assmt Initial Assessment Reason for Hospitalization: Hypokalemia, Hypomagnesemia, Hypoalbuminemia Functional Status/Living Situation Patient Presentation: Claire was lying in bed watching TV when CM met with her. Pt engages in conversation and reports that she is very tired. Dolly shares that she is disabled at baseline and denies any financial or social concerns. CM provided overview of [facility] services, if needs arise in the future. CM will follow. Town of Residence: [place] Resides with: Other (Paddy Mar) Significant Other/Family: Local (None) Natural Supports: Fiance, no other family supports Employment Status: Disabled (On SSDI) Instrumental Activities of Daily Living (ADLs): Independent Medications Medication Management: No Issues/Barriers identified Physical Functioning/Mobility Assistive Device: None Advance Directives Advance Directives: Do you have an Advance Directive: N 02/25/22 13:04 AD On File at [facility]: N 02/25/22 13:04 Date Asked 02/04/24 02/04/24 13:45 AD Date Reviewed COLST On File at [facility] No 10/29/23 19:12 COLST Date Scanned Code Status Resuscitation Status Full Code Insurance Coverage/Financial Issues Insurance: [employer] MCR Financial Issues: Denies financial concerns. Care Team Visit Care Team Role Provider Type Ana María Daily Primary Care Provider NON-[facility] STAFF PHYSICIAN Candy Fuller, MESSENGER FLOORPERSON Other Providers SPEECH LANGUAGE PATHOLOGIST Josy Martinez RDN, CDCES Other Providers COMMUNITY SUPPORT PROFESSIONAL Kathi Cam Other Providers COMMUNITY SUPPORT PROFESSIONAL Bib Huerta, MESSENGER FLOORPERSON Other Providers SPEECH LANGUAGE PATHOLOGIST Amaya Haney Other Providers SPEECH LANGUAGE PATHOLOGIST Kiresten Ybarra, MESSENGER FLOORPERSON Other Providers SPEECH LANGUAGE PATHOLOGIST Daylin Blue, MESSENGER FLOORPERSON Other Providers SPEECH LANGUAGE PATHOLOGIST Trae Cuadra Other Providers OTHER Aguilar Garcia RDN Other Providers COMMUNITY SUPPORT PROFESSIONAL Sandeep Roy MD Emergency Provider [facility] STAFF PHYSICIAN Junior Carvajal MD Admit Provider [facility] STAFF PHYSICIAN Attending Provider Discharge Potential Discharge Needs: PCP F/U Appt Anticipated Barriers to Discharge: None Identified Patient/Family Education Needs: Review discharge instructions, discuss [facility] Transportation: Private vehicle Plan: [facility] Potassium and magnesium are being close monitored and repleated, as needed. Anticipate, pt will discharge home via private vehicle with her paddy when medically ready per provider. Dolly will follow up with community providers and discharge plan of care as instructed. Dolly is connected with [facility] and has take home suboxone. Last dose letter will be provided, if needed. No services are anticipated at this time. CM will follow. PFSH All Active Problems (Updated 02/06/24 @ 01:27 by Junior Carvajal MD) Normocytic normochromic anemia (Acute) Hypokalemia (Acute) Hypoalbuminemia (Acute) Hypomagnesemia (Acute) Bilateral edema of lower extremity (Acute) Opioid use disorder in remission (Chronic) Hypocalcemia (Chronic) Insomnia (Acute) Chronic pancreatitis (Chronic) Medical History (Updated 02/06/24 @ 01:27 by Junior Carvajal MD) Pancreatic pseudocyst Pancreatic mass Anasarca Ganglion cyst of dorsum of left wrist Colitis ADHD Opioid dependence on agonist therapy Surgical History S/P cholecystectomy and removal of two pancreatic pseudocysts Social History Smoking/Tobacco Use Status: Current every day Tobacco Type: cigarettes Smoking packs per day: 0.5 Smoking cigarettes per day: 10.0 Years smoked: 27 Smoking pack-years: 13.50 Quit status: considering quitting Counseling given: provider counseling and support medications Smoking risk assessment performed?: Yes Alcohol Intake: current Alcohol Intake frequency: a few times a month Alcohol type: beer Counseling provided: provider counseling Drug use: Occasionally Substance use type: marijuana Housing: apartment Do you feel safe at home: Yes Do you feel safe in your relationship?: Yes SDOH(Care Management) Screening Will the Patient Participate in the Screening?: Yes Do you worry about having a steady place to live?: no Problems where you live: no known problems In the past 12 months, have you had to go without electric, gas, oil or water in your home?: no Have you or anyone in your house had to go without enough food to eat?: no Has lack of transportation kept you from medical appointments or from doing things needed for daily living?: no Has anyone in your support network made you feel unsafe for any reason?: no
[2024-02-06] MEDS: Normal Saline 1,000 ML 100 ML IV ×2 (08:38→19:01)
[2024-02-06 09:58] LABS: C Diff PCR Negative (Negative)
[2024-02-06] MEDS: Nicotine 21 MG/24 HR PATCH TD (10:32)
--- NOTE | 2024-02-06 10:44 | IN_ITS ---
Date of service: 02/06/24 Time of Service: 10:38 PT Notes Visit Reasons: hypokalemia, hypomagnesemia Inpatient Physical Therapy Evaluation I certify the need for these services as being medically necessary and skilled as furnished under this plan of treatment while under my care. Please sign and return within 14 days if you agree with the plan of care listed below.? Thank you for this referral! ? Referring Physician? Date Referring Doctor:? Junior Carvajal PT Orders: PT CONSULT for fall safety assessment Precautions: none Patient Profile/Admitting Diagnosis:? The patient is a 43 yo female adm on 02/06/24 with hypokalemia, hypoalbuminemia, hypomagnesemia and bilateral LE edema. Past Medical History: Normocytic normochromic anemia (Acute) Hypokalemia (Acute) Hypoalbuminemia (Acute) Hypomagnesemia (Acute) Bilateral edema of lower extremity (Acute) Opioid use disorder in remission (Chronic) Hypocalcemia (Chronic) Insomnia (Acute) Chronic pancreatitis (Chronic) Medical History (Updated 02/06/24 @ 01:27 by Junior Carvajal MD) Pancreatic pseudocyst Pancreatic mass Anasarca Ganglion cyst of dorsum of left wrist Colitis ADHD Opioid dependence on agonist therapy Surgical History S/P cholecystectomy and removal of two pancreatic pseudocysts Medications: See chart Social History/Home Situation: Lives with S.O. and two kids (6,15) in [facility]. Two level home. Normally drives, cooks, cleans. Subjective: I have been up and around in the room without issues. Objective: Mental Status: Patient is alert and oriented. Pain: No c/o pain Vital Signs: Per nursing staff. ROM/Strength: Upper extremities: WFL Lower extremities: WFL Sensation: no c/o numbness or tingling Soft tissue/edema: no gross abfnormalities observed. Bed Mobility: Supine to sit independently Transfers: Sit to stand independently Gait: Ambulated 30 feet independently without LOB. Patient reports she trips occasionally at baseline from moving too quickly. Balance: grossly normal [facility] AM-PAC 6 clicks Basic Mobility Inpatient Short Form: Raw Score:??24? CMS Score: 0% Informed Consent/Education:? Patient agreeable to assessment. Assessment:?The patient is a 43 yo female adm on 02/06/24 with hypokalemia, hypoalbuminemia, hypomagnesemia and bilateral LE edema. ? Patient is independent with functional mobility at this time, feels she is at baseline and does not need inpatient PT at this time. Patient is assessed as:? Low 25527? complexity based on the following: History: none Examination: see above Presentation: Stable and uncomplicated?? Decision Making:? Low (0 history, 1-2 exam, stable/predictable, easy 20) Physical Therapy Goals: 1 visit Independent with functional mobility: met Plan of Care/Treatment Plan: No skilled inpatient PT needs at this time. Please order therapy if functional status changes. DISCHARGE RECOMMENDATIONS: none Billing Charges: Treatment Units Time Duration Manual Therapy(52276) Hands-on techniques to modulate pain increase joint range of motion reduce or eliminate soft tissue swelling, inflammation, or restriction facilitate relaxation and improve contractile and non-contractile tissue extensibility ? ? Therapeutic Procedures (41745) Instruction in therapeutic exercises to develop strength and endurance, range of motion and flexibility. HEP instruction and review: Provided skilled instruction in proper exercise performance: Provided skilled manual cues to facilitate proper muscle recruitment and/or movement pattern Neurological Re-Education(78600) To improve balance, coordination, kinesthetic and proprioceptive sensations. ? ? Ultrasound(03406) To promote healing. ? ? Gait Training(44293) ? ? Therapeutic Activity(28869) Instruction in dynamic activities with one on one patient contact by the provider to improve functional performance as follows: ? ? Self Care Training(62339) ? ? E-Stim (Attended)(95491) ? ? Low IE(11614) 1 10 Mod IE(06046) ? ? High IE(73008) ? ? Time Coded Treatment Time ? 0 Total Treatment Time ? 10
[2024-02-06] MEDS: POTASSIUM CHLORIDE 10 MEQ/100 ML BAG 80 MEQ IVINF (10:55)
--- NOTE | 2024-02-06 12:04 | PHA.REVIEW2 ---
Pharmacy Admission Review Admission Clinical Review Admission Pharmacy Review: Normocytic normochromic anemia (Acute) Hypokalemia (Acute) Hypoalbuminemia (Acute) Hypomagnesemia (Acute) Bilateral edema of lower extremity (Acute) No Known Allergies Allergy (Unverified 02/05/24 22:03) Resuscitation Status Full Code Height 5 ft 2 in Weight 56.24 kg Pharmacy Admission Review Renal Dosing Renal Dosing: BUN 1 mg/dL (7-18) L 02/06/24 06:15 Creatinine 0.8 mg/dL (0.55-1.02) 02/06/24 06:15 Medications needing adjustments: Reviewed (CrCl 81.26 mL/min) List of meds needing interventions: Current medications are okay Anticoagulation Anticoagulation: Hgb 9.9 g/dL (11.2-15.7) L 02/06/24 06:15 Hct 26.5 % (36.0-46.0) L 02/06/24 06:15 Plt Count 447 10^3/uL (130-400) H 02/06/24 06:15 INR 1.2 (0.9-1.1) H 02/06/24 06:15 Creatinine 0.8 mg/dL (0.55-1.02) 02/06/24 06:15 DVT Prophylaxis: Reviewed (SCDs/TEDs - anemic, Hgb increased from 9.3) Relevant Labs Relevant Labs: Sodium 144 mmol/L (136-145) 02/06/24 06:15 Potassium 1.6 mmol/L (3.5-5.1) L* 02/06/24 06:15 Potassium Cancelled 02/06/24 06:15 Chloride 108 mmol/L (98-107) H 02/06/24 06:15 Magnesium 2.2 mg/dL (1.8-2.4) 02/06/24 06:15 Electrolytes, C-Reactive P, ESR: Reviewed (K 1.6 - repleting with IV infusion, WBC decreased from 17.4 to 16.63) Cardiac Review Cardiac Review: Troponin I < 50 ng/L (< or =60) 02/05/24 22:16 NT-Pro-B Natriuret Pep 478 pg/mL (<300) H 02/05/24 22:16 BP, HR, EF%: Reviewed (BP and HR WNL) QTc Review QTc: Reviewed (464 from 02/05/24) IV to PO Switch IV Medications: Reviewed (potassium infusion) Home Meds Home Med List reviewed: Reviewed Relevent Home Meds Not ordered & why?: albuterol, Brixadi (monthly injection), spironolactone and Suboxone (had order but was discontinued by provider, per morning meeting patient states they are no longer taking) Current Meds Current Medication Order Review: Reviewed
[2024-02-06] MEDS: Potassium Chloride 20 MEQ TABCR PO ×3 (12:23→19:33)
[2024-02-06] MEDS: POTASSIUM CHLORIDE 10 MEQ/100 ML BAG 50 MEQ IVINF ×4 (12:46→21:59)
[2024-02-06] MEDS: Amphet Asp/Amphet/D-Amphet 10 MG TAB 20 MG PO (13:12)
[2024-02-06 16:31] LABS: Potassium 1.8 mmol/L (3.5-5.1)
[2024-02-06] MEDS: hydrOXYzine HCL 25 MG TAB PO (18:16)
[2024-02-06] MEDS: traZODone 50 MG TAB PO (19:33)
[2024-02-07] VITALS (7 sets, daily range): BP systolic 103–120; BP diastolic 71–89; PULSE 81–93; RESP 15–18; TEMP 36.5–37.2; O2SAT 99–100
[2024-02-07] MEDS: POTASSIUM CHLORIDE 10 MEQ/100 ML BAG 50 MEQ IVINF (00:08)
[2024-02-07] MEDS: Multivitamin TAB 1 TAB PO (07:53)
[2024-02-07] MEDS: Folic Acid 1 MG TAB PO (07:56)
[2024-02-07] MEDS: Thiamine 100 MG TAB PO (07:57)
[2024-02-07] MEDS: Famotidine 20 MG TAB 40 MG PO ×2 (07:57→19:34)
[2024-02-07] MEDS: Potassium Chloride 20 MEQ TABCR PO ×4 (07:58→19:34)
[2024-02-07] MEDS: Amphet Asp/Amphet/D-Amphet 10 MG TAB 30 MG PO (07:58)
[2024-02-07] MEDS: Nicotine 21 MG/24 HR PATCH TD (07:59)
[2024-02-07] MEDS: Magnesium Gluconate 500 MG TAB PO ×2 (07:59→19:34)
[2024-02-07] MEDS: Normal Saline Flush 10 ML SYR IVP ×2 (08:01→21:00)
--- NOTE | 2024-02-07 08:18 | W.SPSTE ---
Date of service: 02/07/24 Time of Service: 07:55 Subjective Clinical (Bedside) Swallow Evaluation Speech Language Pathology Referred by: Dr Carvajal Referral Type: Clinical Swallow Evaluation Reason for Referral/HPI: Dolly Alexis is a 43 yo female adm to [facility] 02/06/24 secondary to hypokalemia with diarrhea and low oral intake due to sensation of food sticking in sternal region for 1-2 weeks. PMH significant for hx alcohol abuse disorder, hx opioid use in remission, hx alcoholic hepatitis, chronic pancreatitis. During last admission in October 2023 abdominal xray noted wall thickening in the stomach and thickening of the [place] of the ascending colon and transverse colon- with outpatient GI referral recommended. Dolly states she never saw GI as she never heard from their office. Abdominal Xray From October 2023: 1. Heterogeneous enlargement of the pancreas. With the change in the appearance of the pancreatic head and the surrounding soft tissues, while sequelae related to the patient's prior pancreatitis may be considered, pancreatic neoplasm is of primary concern at this time. 2. Interval decrease in size of the peripancreatic fluid collection which now measures 2.2 cm. 3. Wall thickening seen in the stomach which may reflect an inflammatory/infectious gastritis versus neoplasm. 4. Thickening of the quezada of the ascending colon and transverse colon. This may represent a colitis, neoplasm cannot be entirely excluded. [employer] DIVISION OFFICER IMPRESSIONS & RECOMMENDATIONS: Dolly was seen this morning for a non-instrumental swallow evaluation with breakfast tray. She demonstrates timely swallow reflex with single swallow per bite/sip. No coughing/throat clearing/change in vocal quality. Immediately after the swallow she complains of 'sticking' sensation with associated pain/tightness in sternal region. This occurred with pills, small bites of scrambled eggs, and liquids (soda/coffee). Pain is improved/relieved after momentary lapse in time and/or sternal rub massage. Liquids do not alleviate symptoms and can make it worse. She reports she is also getting this similar sensation after swallowing her own saliva. No indications of oral pharyngeal dysphagia appreciated, with esophageal symptoms notably impacting oral intake. Recommend further workup of barium swallow study to assess esophageal functioning. Anticipate EGD may also be warranted. FURTHER RADIO DIVISION OFFICER SERVICES: No further [employer] DIVISION OFFICER services indicated Suggested Referrals: Gastroenterology Recommended Procedures: consider barium swallow, consider EGD Diet Recommendations: SOLIDS: 6-Soft & Bite-Sized Solids (Symptoms occuring even with liquids, thus unsure that further modification would be helpful) LIQUIDS: 0-Thin Liquids MEDICATIONS: Whole with 0-Thin Liquids- Consider crushing or trying in applesauce if easier for patient RISK MANAGEMENT: HOB upright as tolerated; upright for all PO intake. Level of Assistance/Supervision: Independent Posture/Positioning Needs: Maintain upright position at least 60 minutes after meals Avoid meals/snacks 2-3 hours prior to reclining/sleeping Sleep with head of bed elevated to reduce likelihood of nocturnal reflux Recommendation at Discharge: No [employer] OFFICER services SUBJECTIVE: Patient received alert/awake, agreeable to evaluation Pain Reported? As noted above, pain with swallowing Baseline Swallow Function: Patient denies swallowing or reflux issues prior to the past 2 weeks Symptoms have been progressive/worsening over the past 1.5 weeks PO Trials Assessed: IDDSI 0 Thin Liquids (coffee via cup, gingerale via straw) IDDSI 6 Soft & Bite Size Solid (scrambled eggs, bite of muffin) Medications administered by RN (Taken one at a time with sip liquid) Oral Mechanism Examination: Cranial Nerve Assessment: CN V ? Trigeminal Facial Sensation WNL Jaw Strength/ROM WNL ?WNL CN VII- Facial WNL labial ROM, strength, coordination. WNL lingual sensation WNL CN IX ? Glossopharyngeal WNL palatal elevation with phonation. No evidence of nasal emissions WNL CN X ? Vagus WNL Vocal quality and volume. Strong/sharp volitional cough WNL CX XII ? Hypoglossal WNL lingual ROM, strength, coordination WNL Oral Phase Findings: WFL Pharyngeal Phase Findings: WFL Single, timely swallow per bite/sip No coughing/throat clearing/change in vocal quality Immediate complaint of sticking/pain in sternal region after the swallow ASSESSMENT: Further [employer] OFFICER Services not indicated- anticipate esophageal dysphagia/GI needs Recommendation at Discharge: No [employer] OFFICER services Suggested Referrals: Gastroenterology Recommended Procedures: consider barium swallow, consider EGD Education Provided to: Patient, Nursing, Physician Topics Addressed: Findings, recommended imaging PLAN: Eval only RADIO DIVISION OFFICER CPT Code: 40273 Clinical Swallowing Evaluation TOTAL TIME: 25 Minutes ([id number])
--- NOTE | 2024-02-07 09:14 | PGE_ITS ---
Date of Service Date of service: 02/07/24 Time of Service: 09:14 Assessment and Plan Assessment and plan (1) Hypokalemia: Status: Acute Assessment and plan: Potassium was 1.8 yesterday, BMP ordered this morning- results pending. The patient has chronic hypokalemia, and is anticipating need for replacement K 1.9, potassium level at 22:00 BMP in AM (2) Hypomagnesemia: Status: Acute Assessment and plan: Begin oral as well as parenteral supplementation, which levels reaching 2.2, today's results at 1.5 Mg IV supplementation ' Mg level in AM (3) Hypoalbuminemia: Status: Acute Assessment and plan: Nutritional consult. Estimated energy need 1560 treated kilocalories, 70 g of protein and 1563 mL of fluid Continue oral protein supplementation (4) Bilateral edema of lower extremity: Status: Acute Assessment and plan: Bilateral lower extremity edema is most likely most likely of chronic nature due to EtOH use and cirrhosis and hypoalbuminemia. And as above (5) ADHD: Assessment and plan: Continue home medications Qualifiers: Attention deficit-hyperactivity disorder type: combined inattentive- hyperactive Qualified Code(s): F90.2 - Attention-deficit hyperactivity disorder, combined type (6) Opioid dependence on agonist therapy: Assessment and plan: Continue home dose of Suboxone (7) Normocytic normochromic anemia: Status: Acute Assessment and plan: Iron 94, transferrin percentage 111, TIBC 85 occult blood negative Continue H2 charles (8) GERD (gastroesophageal reflux disease): Status: Suspected Assessment and plan: Dysphagia : Speech pathology consult with recommendation for EGD. Surgery consulted for EGD and colonoscopy due to both diarrhea, positive lactoferrin and above recommendation; to be done outpatient Speech also recommends a modified barium swallow with an EGD first as well as soft and bite-size consistencies due to report of globulus sensation when swallowing food and drinks. Qualifiers: Esophagitis presence: esophagitis presence not specified Qualified Code(s): K21.9 - Gastro-esophageal reflux disease without esophagitis (9) Diarrhea: Status: Acute Assessment and plan: Lactoferrin positive without WBC without fever with negative guaiac; most likely inflammatory or viral and not from bacterial infection C. difficile negative Other stool pathogen PCR ordered: results are pending Procalcitonin in a.m. (10) On deep vein thrombosis (DVT) prophylaxis: Status: Acute Assessment and plan: SCDs Discussed with Dr. Amaya Subjective Subjective Patient reports: no new complaints, tolerating liquids well, tolerating a regular diet, voiding w/o difficulty, flatus, diarrhea, nausea and afebrile; denies blood in stool, vomiting, shortness of breath or fever Exam Narrative Exam Narrative: Neuro:alert and oriented to self, person, place time and situation Resp: Clear lung bilaterally Cardio: regular rhythm, S1, S2, no murmur GI: Abdomen is not distended, soft and non tender, bowel sounds are present Integumentary: No skin lesions or rash Extremities: strength 5/5 to bilateral lower and upper extremities Psych: RASS 0, congruent mood and normal affect. Objective Last Vital Signs Temp 37.1 C 02/07/24 07:08 Pulse 82 02/07/24 07:08 Resp 16 02/07/24 07:08 BP 107/76 02/07/24 07:08 Pulse Ox 100 02/07/24 07:08 Laboratory Results - last 24 hr 02/06/24 02/06/24 08:58 16:12 Potassium 1.8 L* Stl C.difficile Tox PCR Negative Time Spent with Patient Time Spent with Patient: >50 minutes Time was spent: preparing to see the patient(eg.review tests), obtaining and/or reviewing separately otained hiistory, ordering medications,tests, procedures, referring, communicating with other health career guidance technician, indepentently interpreting results, counseling the patient and care coordination
[2024-02-07] MEDS: POTASSIUM CHLORIDE 20 MEQ/100 ML BAG 50 MEQ IVINF ×4 (09:41→20:59)
--- NOTE | 2024-02-07 10:02 | PDOC.CMPRO ---
Date of service: 02/07/24 Time of Service: 10:02 Care Management Progress Note Progress Note Text Progress Note Text: Dolly was sitting up in bed watching TV when CM met with her. Her Potassium and magnesium are being close monitored and repleated, as needed. Dolly reports difficulty swallowing for the last [address] eval done, additional imaging is recommended. CM will follow. Discharge Potential Discharge Needs: PCP F/U Appt Anticipated Barriers to Discharge: None Identified Patient/Family Education Needs: Review discharge instructions, discuss Ask Me Three Transportation: Private vehicle Plan: Anticipate, pt will discharge home via private vehicle with her fiance when medically ready per provider. Dolly will follow up with community providers and discharge plan of care as instructed. Dolly is connected with [facility] and has take home suboxone. Last dose letter will be provided, if needed. No services are anticipated at this time. CM will follow. SDOH(Care Management) Screening Will the Patient Participate in the Screening?: Yes Do you worry about having a steady place to live?: no Problems where you live: no known problems In the past 12 months, have you had to go without electric, gas, oil or water in your home?: no Have you or anyone in your house had to go without enough food to eat?: no Has lack of transportation kept you from medical appointments or from doing things needed for daily living?: no Has anyone in your support network made you feel unsafe for any reason?: no
[2024-02-07 11:02] LABS: Absolute Eosinophil Count 0.31 10^3/uL (0.0-0.7); Absolute Monocyte Count 0.94 10^3/uL (0.1-0.8); Absolute Neutrophil Count 11.33 10^3/uL (1.2-6.7); Basophils % 0.5 %; Eosinophils % 2.1 %; HCT 22.1 % (36.0-46.0); Immature Grans % 1.3 %; Lymphocytes % 13.9 %; MCH 34.5 pg (27.0-33.0); MCHC 36.2 % (32.0-36.0); MCV 95 fL (80-95); MPV 9.9 fL (8.0-11.0); Monocytes % 6.3 %; Neutrophils % 75.9 %; Platelet Count 346 10^3/uL (130-400); RBC 2.32 10^6/uL (3.93-5.22); RDW 14.7 % (11.7-14.6); RDW-SD 50.6 fL; WBC 14.93 10^3/uL (4.4-10.8)
[2024-02-07 11:04] LABS: Absolute Basophil Count 0.07 10^3/uL (0.0-0.2); Absolute Lymphocyte Count 2.08 10^3/uL (1.2-3.4)
[2024-02-07 11:11] LABS: Anion Gap 9.3 mmol/L (3-11); BUN 1 mg/dL (7-18); CO2 23.7 mmol/L (21.0-32.0); CREATININE 0.6 mg/dL (0.55-1.02); Calcium 6.8 mg/dL (8.5-10.1); Chloride 109 mmol/L (98-107); Estimated GFR 114.86 (mL/min/1.73m2); Glucose 127 mg/dL (74-106); Magnesium 1.5 mg/dL (1.8-2.4); Sodium 142 mmol/L (136-145)
[2024-02-07 11:14] LABS: Transferrin 78 mg/dL (201-352)
[2024-02-07 11:15] LABS: Potassium 1.9 mmol/L (3.5-5.1)
[2024-02-07] MEDS: Amphet Asp/Amphet/D-Amphet 10 MG TAB 20 MG PO (11:24)
[2024-02-07] MEDS: Loperamide 2 MG CAP PO ×3 (11:24→18:09)
--- NOTE | 2024-02-07 11:45 | NS.NUTBLAN_ITS ---
Date of service: 02/07/24 Time of Service: 11:45 Nutritional Consult ASSESSMENT: Received consult request for pt regarding wt loss/malnutrition. Pt is 43yo female admitted after reporting to ER with hypokalemia (which is up to 1.9 this morning after 10meq given IV yesterday. Continues on KCL 20meq po 4 x daily. MAgnesium dropped form 2.2 yesterday to 1.5 today this morning - getting Mag gluconate 1gm per day total. Glucose high with FPG 127 this morning and 107 yesterday morning - last A1C was 6.2 last month. Hx of chronic pancreatitis. Receiving folate, mvi, thiamine and ordered for liquid protein [employer] visited with pt and recommended soft and bite size consistencies due to pt reporting globulous sensation when swallowing food and drinks. Denies chewing difficulty. Wt history shows 5.2kg loss over the last 2 months. PT reports weight pretty stable and fluctuates +or- 10lbs of usual body weight of 56.8kg. Confidently states that she doesn't need to gain weight and does not want to gain weight. Pt po intake fair this admission - relays that she couldn't have cheeseburger from cafe today due to consistency limitation and ordered byrne pie with accompaniments today for lunch. Declines offer of ONS with or between meals for supplemental nutrition. Pt does her own shopping and meal prep at home - pt reports usual pattern of eating and it is assessed as inconsistent with grazing, skipping meals common. Low produce intake as well Estimated energy needs: 1563kcals, 70g protein, 1563mL fluid NUTRITIONAL DIAGNOSIS: altered nutrient-related lab values related to inconsistent eating, probably etoh misuse as evidenced by etoh abuse history and patient diet history. INTERVENTION: pt declined ONS. Encouraged to eat consistently 3 meals and 0-3 planned snacks a day and offered contact information for more assistance if needed via outpatient nutrition appt. MONITORING AND EVALUATION: Will monitor weight, po intake, labs, desire for further nutrition education Time Spent in Nutritional Counseling and Treatment: 15 min
[2024-02-07] MEDS: MAGNESIUM SULFATE 2 GM/50 ML BAG IVINF ×2 (13:28→23:05)
[2024-02-07 15:59] LABS: Troponin I < 50 ng/L (< or =60)
[2024-02-07] MEDS: traZODone 50 MG TAB PO (19:34)
[2024-02-07 22:39] LABS: Potassium 2.2 mmol/L (3.5-5.1)
[2024-02-07 22:51] LABS: Campylobacter PCR Negative (Negative); Salmonella PCR Negative (Negative); Shiga Toxin PCR Negative (Negative); Shigella/Enteroinvasive Ecoli Negative (Negative)
[2024-02-07] MEDS: Normal Saline 1,000 ML 100 ML IV (23:18)
[2024-02-08] MEDS: POTASSIUM CHLORIDE 20 MEQ/100 ML BAG 50 MEQ IVINF ×2 (01:07→03:09)
[2024-02-08 03:51] VITALS: BP 108/73; PULSE 86; RESP 18; TEMP 36.4; O2SAT 98
[2024-02-08 07:21] LABS: Abs Immature Grans 0.15 10^3/uL (0.0-0.06); Absolute Basophil Count 0.13 10^3/uL (0.0-0.2); Absolute Eosinophil Count 0.37 10^3/uL (0.0-0.7); Absolute Lymphocyte Count 2.33 10^3/uL (1.2-3.4); Absolute Monocyte Count 0.67 10^3/uL (0.1-0.8); Basophils % 1.2 %; Eosinophils % 3.5 %; HCT 25.7 % (36.0-46.0); Immature Grans % 1.4 %; Lymphocytes % 22.3 %; MCH 33.7 pg (27.0-33.0); MCV 96 fL (80-95); MPV 10.6 fL (8.0-11.0); Monocytes % 6.4 %; Neutrophils % 65.2 %; Platelet Count 375 10^3/uL (130-400); RBC 2.67 10^6/uL (3.93-5.22); RDW 14.9 % (11.7-14.6); RDW-SD 51.5 fL; WBC 10.45 10^3/uL (4.4-10.8)
[2024-02-08 07:27] VITALS: BP 122/83; PULSE 65; RESP 18; TEMP 36.7; O2SAT 100
[2024-02-08 07:38] LABS: Anion Gap 9.7 mmol/L (3-11); BUN 0 mg/dL (7-18); CO2 22.3 mmol/L (21.0-32.0); CREATININE 0.6 mg/dL (0.55-1.02); Calcium 7.1 mg/dL (8.5-10.1); Chloride 113 mmol/L (98-107); Estimated GFR 114.86 (mL/min/1.73m2); Glucose 105 mg/dL (74-106); Sodium 145 mmol/L (136-145)
[2024-02-08 07:40] LABS: Potassium 2.2 mmol/L (3.5-5.1)
[2024-02-08 08:20] LABS: Procalcitonin < 0.1 ng/mL
[2024-02-08] MEDS: Normal Saline Flush 10 ML SYR IVP ×2 (08:38→20:11)
[2024-02-08] MEDS: Nicotine 21 MG/24 HR PATCH TD (08:39)
[2024-02-08] MEDS: Amphet Asp/Amphet/D-Amphet 10 MG TAB 30 MG PO (08:40)
[2024-02-08] MEDS: Multivitamin TAB 1 TAB PO (08:40)
[2024-02-08] MEDS: Magnesium Gluconate 500 MG TAB PO ×2 (08:40→20:06)
[2024-02-08] MEDS: Thiamine 100 MG TAB PO (08:40)
[2024-02-08] MEDS: Famotidine 20 MG TAB 40 MG PO ×2 (08:40→20:06)
[2024-02-08] MEDS: Potassium Chloride 20 MEQ TABCR PO ×4 (08:40→20:06)
[2024-02-08] MEDS: Folic Acid 1 MG TAB PO (08:41)
[2024-02-08] MEDS: POTASSIUM CHLORIDE 10 MEQ/100 ML BAG 100 MEQ IVINF (08:42)
[2024-02-08] MEDS: POTASSIUM CHLORIDE 10 MEQ/100 ML BAG 70 MEQ IVINF ×3 (10:21→13:34)
[2024-02-08] MEDS: Normal Saline 1,000 ML 100 ML IV ×2 (11:06→23:54)
[2024-02-08 11:28] VITALS: BP 130/86; PULSE 88; RESP 18; TEMP 36.5; O2SAT 100
[2024-02-08] MEDS: Amphet Asp/Amphet/D-Amphet 10 MG TAB 20 MG PO (11:53)
--- NOTE | 2024-02-08 12:19 | PDOC.CMPRO ---
Date of service: 02/08/24 Time of Service: 12:19 Care Management Progress Note Discharge Potential Discharge Needs: Imaging/labs and PCP F/U Appt Anticipated Barriers to Discharge: Medical Status (Trending labs) Patient/Family Education Needs: Review discharge instructions, discuss Ask Me Three Transportation: Private vehicle Plan: Anticipate Dolly will discharge home via private vehicle with her fiance when medically ready per provider. She will follow up with community providers and her discharge plan of care as instructed. Dolly is connected with [facility] and has take home suboxone. Last dose letter will be provided, if needed. No additional services are anticipated at this time. CM following. SDOH(Care Management) Screening Will the Patient Participate in the Screening?: Yes Do you worry about having a steady place to live?: no Problems where you live: no known problems In the past 12 months, have you had to go without electric, gas, oil or water in your home?: no Have you or anyone in your house had to go without enough food to eat?: no Has lack of transportation kept you from medical appointments or from doing things needed for daily living?: no Has anyone in your support network made you feel unsafe for any reason?: no Health Related Social Needs Health related social needs details: Resume BAART suboxone [facility] treatment
--- NOTE | 2024-02-08 12:31 | NUR.NOTE ---
Nursing Note: Pt had asked this morning why she had to take her adderall, advised that she did not have to, she could decline. She decided to take it as it keeps her feeling like herself. Nursing was outside pt's room and heard her ask if she had been taking her adderall and she said yes, but I don;t know why. Her responded by saying then just hide it. Nursing entered the room and asked if they had any medication questions and they said no. Reported incident to CC.
--- NOTE | 2024-02-08 12:46 | PGE_ITS ---
Date of Service Date of service: 02/08/24 Time of Service: 12:46 Assessment and Plan Assessment and plan (1) Hypokalemia: Status: Acute Assessment and plan: Potassium 2.2 The patient has chronic hypokalemia, and is anticipating need for replacement Potassium repleted; recheck 1700h (2) Hypomagnesemia: Status: Acute Assessment and plan: 2.0 trend (3) Hypoalbuminemia: Status: Acute Assessment and plan: Nutritional consult. Estimated energy need 1560 treated kilocalories, 70 g of protein and 1563 mL of fluid Continue oral protein supplementation (4) Bilateral edema of lower extremity: Status: Acute Assessment and plan: Bilateral lower extremity edema is most likely most likely of chronic nature due to EtOH use and cirrhosis and hypoalbuminemia. And as above (5) ADHD: Assessment and plan: Stable, Continue home medications Qualifiers: Attention deficit-hyperactivity disorder type: combined inattentive- hyperactive Qualified Code(s): F90.2 - Attention-deficit hyperactivity disorder, combined type (6) Opioid dependence on agonist therapy: Assessment and plan: Stable, Continue home dose of Suboxone (7) Normocytic normochromic anemia: Status: Acute Assessment and plan: Iron 94, transferrin percentage 111, TIBC 85 occult blood negative Continue H2 charles (8) GERD (gastroesophageal reflux disease): Status: Suspected Assessment and plan: Dysphagia : Speech pathology consult with recommendation for EGD. Surgery consulted for EGD and colonoscopy due to both diarrhea, positive lactoferrin and above recommendation; to be done outpatient Barium swallow results pending Qualifiers: Esophagitis presence: esophagitis presence not specified Qualified Code(s): K21.9 - Gastro-esophageal reflux disease without esophagitis (9) Diarrhea: Status: Acute Assessment and plan: Lactoferrin positive without WBC without fever with negative guaiac; most likely inflammatory or viral and not from bacterial infection C. difficile negative Other stool pathogen PCR ordered: results are pending Procal neg (10) On deep vein thrombosis (DVT) prophylaxis: Status: Acute Assessment and plan: SCDs Discussed with Dr. Amaya Subjective Subjective Patient reports: no new complaints and tolerating liquids well Interval history since last seen: Dolly reports she is feeling much better, sitting on the side of the bed, jovani rt, pleasant, conversant. Exam Narrative Exam Narrative: Neuro:alert and oriented to self, person, place time and situation Resp: Clear lung bilaterally Cardio: regular rhythm, S1, S2, no murmur GI: Abdomen is not distended, soft and non tender, bowel sounds are present Integumentary: No skin lesions or rash Extremities: strength 5/5 to bilateral lower and upper extremities Psych: RASS 0, congruent mood and normal affect. Objective Last Vital Signs Temp 36.5 C 02/08/24 11:28 Pulse 88 02/08/24 11:28 Resp 18 02/08/24 11:28 BP 130/86 02/08/24 11:28 Pulse Ox 100 02/08/24 11:28 Laboratory Results - last 24 hr 02/06/24 02/06/24 02/07/24 06:15 08:58 15:30 WBC RBC Hgb Hct MCV MCH MCHC RDW Plt Count MPV Immature Gran % Neutrophils % Lymphocytes % Monocytes % Eosinophils % Basophils % Nucleated RBC % Absolute Neutrophils Absolute Lymphocytes Absolute Monocytes Absolute Eosinophils Absolute Basophils Sodium Potassium Chloride Carbon Dioxide Anion Gap BUN Creatinine Est GFR (CKD-EPI 2020) Glucose Calcium Magnesium Transferrin 78 L Troponin I < 50 Procalcitonin Stool Campylobacter PCR Negative Stool Salmonella PCR Negative Stool Shigella PCR Negative Shiga Toxin (PCR) Negative 02/07/24 02/07/24 02/08/24 18:00 22:10 06:20 WBC 10.45 RBC 2.67 L Hgb 9.0 L Hct 25.7 L MCV 96 H MCH 33.7 H MCHC 35.0 RDW 14.9 H Plt Count 375 MPV 10.6 Immature Gran % 1.4 Neutrophils % 65.2 Lymphocytes % 22.3 Monocytes % 6.4 Eosinophils % 3.5 Basophils % 1.2 Nucleated RBC % 0.0 Absolute Neutrophils 6.80 H Absolute Lymphocytes 2.33 Absolute Monocytes 0.67 Absolute Eosinophils 0.37 Absolute Basophils 0.13 Sodium 145 Potassium Cancelled 2.2 L* 2.2 L* Chloride 113 H Carbon Dioxide 22.3 Anion Gap 9.7 BUN 0 L Creatinine 0.6 Est GFR (CKD-EPI 2020) 114.86 Glucose 105 Calcium 7.1 L Magnesium 2.0 Transferrin Troponin I Procalcitonin < 0.1 Stool Campylobacter PCR Stool Salmonella PCR Stool Shigella PCR Shiga Toxin (PCR) Time Spent with Patient Time Spent with Patient: 25-34 minutes Time was spent: preparing to see the patient(eg.review tests), ordering medications,tests, procedures, referring, communicating with other health skin care instructor, indepentently interpreting results, counseling the patient and care coordination
[2024-02-08] MEDS: Barium Sulfate 60% W/V 355 ML BTL 150 ML PO (14:31)
[2024-02-08] MEDS: Barium Sulfate 98% W/W 140 ML BTL 120 ML PO (14:32)
--- NOTE | 2024-02-08 14:32 | DI.RAD_ITS ---
Exam(s) RF BARIUM SWALLOW SINGLE EXAM: RF BARIUM SWALLOW SINGLE CLINICAL HISTORY: Recommended by speech - esophagitis GERD TECHNIQUE: 2D and realtime digital imaging was performed. CONTRAST MATERIAL: Oral barium Oral water soluble contrast was administered. COMPARISON: No exams were available for comparison FINDINGS: Study somewhat limited because of patient having significant pain swallowing and while barium was derrick cending the length of the esophagus ESOPHAGRAM: Swallowing mechanism appears grossly intact. There was no aspiration evident. No vallecular pooling . No evidence of hypertense upper esophageal sphincter and no evidence of Zenker's diverticulum. Th ere are no fixed lesions seen in the esophagus. Distally there is no evidence of hiatal hernia nor S chatzki ring nor obvious stricture. No evidence of achalasia. No tertiary waves evident. No obviou s GE reflux. IMPRESSION: No obvious abnormalities on this esophagram. Given this patient's symptoms cannot exclude possibly o f esophagitis, despite absence of obvious esophagitis on this barium swallow study. RADIATION DOSE DELIVERED: genevieve Mullins=14.8 mGy
[2024-02-08 15:11] VITALS: BP 135/90; PULSE 84; RESP 16; TEMP 36.6; O2SAT 98
--- NOTE | 2024-02-08 16:38 | CHAPLAIN ---
I had a brief visit with Dolly. She told me that she's fine and would let me know if she needed anything from me.
[2024-02-08 17:19] LABS: Anion Gap 7.9 mmol/L (3-11); CO2 23.1 mmol/L (21.0-32.0); CREATININE 0.5 mg/dL (0.55-1.02); Calcium 6.9 mg/dL (8.5-10.1); Chloride 112 mmol/L (98-107); Estimated GFR 120.02 (mL/min/1.73m2); Glucose 125 mg/dL (74-106); Magnesium 1.5 mg/dL (1.8-2.4); Potassium 3.2 mmol/L (3.5-5.1); Sodium 143 mmol/L (136-145)
[2024-02-08 17:24] LABS: BUN 0 mg/dL (7-18)
[2024-02-08] MEDS: Potassium Chloride 20 MEQ TABCR 40 MEQ PO (18:34)
[2024-02-08 20:00] VITALS: BP 139/90; PULSE 99; RESP 16; TEMP 36.5; O2SAT 99
[2024-02-08] MEDS: traZODone 50 MG TAB PO (20:06)
[2024-02-08] MEDS: Loperamide 2 MG CAP PO (20:06)
[2024-02-08] MEDS: hydrOXYzine HCL 25 MG TAB PO (20:11)
[2024-02-08 23:20] VITALS: BP 126/85; PULSE 95; RESP 18; TEMP 36.4; O2SAT 100
[2024-02-09 03:28] VITALS: BP 106/76; PULSE 82; RESP 16; TEMP 36.4; O2SAT 99
[2024-02-09 07:16] VITALS: BP 128/80; PULSE 88; RESP 16; TEMP 36.2; O2SAT 100
[2024-02-09] MEDS: Potassium Chloride 20 MEQ TABCR PO ×2 (08:11→11:24)
[2024-02-09] MEDS: Amphet Asp/Amphet/D-Amphet 10 MG TAB 30 MG PO (08:11)
[2024-02-09] MEDS: Nicotine 21 MG/24 HR PATCH TD (08:11)
[2024-02-09] MEDS: Multivitamin TAB 1 TAB PO (08:12)
[2024-02-09] MEDS: Famotidine 20 MG TAB 40 MG PO (08:12)
[2024-02-09] MEDS: Folic Acid 1 MG TAB PO (08:12)
[2024-02-09] MEDS: Magnesium Gluconate 500 MG TAB PO (08:12)
[2024-02-09] MEDS: Thiamine 100 MG TAB PO (08:12)
[2024-02-09] MEDS: Normal Saline Flush 10 ML SYR IVP (08:12)
[2024-02-09] MEDS: Loperamide 2 MG CAP PO ×2 (09:56→12:56)
[2024-02-09 10:22] LABS: Abs Immature Grans 0.08 10^3/uL (0.0-0.06); Absolute Basophil Count 0.12 10^3/uL (0.0-0.2); Absolute Eosinophil Count 0.28 10^3/uL (0.0-0.7); Absolute Monocyte Count 0.77 10^3/uL (0.1-0.8); Basophils % 1.2 %; Eosinophils % 2.8 %; HGB 8.4 g/dL (11.2-15.7); Immature Grans % 0.8 %; Lymphocytes % 22.3 %; MCH 34.3 pg (27.0-33.0); MCV 98 fL (80-95); Monocytes % 7.8 %; Neutrophils % 65.1 %; Platelet Count 360 10^3/uL (130-400); RBC 2.45 10^6/uL (3.93-5.22); RDW 15.4 % (11.7-14.6); RDW-SD 55.3 fL; WBC 9.85 10^3/uL (4.4-10.8)
[2024-02-09 10:43] LABS: Anion Gap 7.4 mmol/L (3-11); CO2 23.6 mmol/L (21.0-32.0); CREATININE 0.5 mg/dL (0.55-1.02); Calcium 7.2 mg/dL (8.5-10.1); Chloride 113 mmol/L (98-107); Estimated GFR 120.02 (mL/min/1.73m2); Glucose 127 mg/dL (74-106); Magnesium 1.4 mg/dL (1.8-2.4); Potassium 3.2 mmol/L (3.5-5.1); Sodium 144 mmol/L (136-145)
[2024-02-09 11:06] LABS: BUN < 1 mg/dL (7-18)
[2024-02-09] MEDS: MAGNESIUM SULFATE 2 GM/50 ML BAG IVINF (11:19)
[2024-02-09 11:20] VITALS: BP 130/91; PULSE 95; RESP 15; TEMP 36.8; O2SAT 100
[2024-02-09] MEDS: Amphet Asp/Amphet/D-Amphet 10 MG TAB 20 MG PO (11:23)
--- NOTE | 2024-02-09 11:57 | CMDISCH_ITS ---
Date of service: 02/09/24 Time of Service: 11:57 LACE Index Scoring Tool Questions: Length of Stay (in days): 3 Was the patient admitted via the E.D.?: Yes E.D. Visits: 5 Answers: Total Score: 10 Risk of Readmission: High Risk Care Management Discharge Plan Reason for Hospitalization: Hypokalemia, Hypomagnesemia Discharge Plan: Dolly will discharge home via private vehicle with her fianc? when medically ready per provider. She will follow up with community providers and her discharge plan of care as instructed. No new services are ordered prior to discharge. Patient/Family Education Needs: Review discharge instructions, limitations, medications and plan to follow up with outpatient providers. Discuss ask me three. SDOH Health Related Social Needs: Health related social needs details Resume BA[facility] subox one [facility] treatment Health related social needs details: Resume BA[facility] suboxone [facility] treatment
--- NOTE | 2024-02-09 12:39 | DSE_ITS ---
Date of service: 02/09/24 Time of Service: 12:39 DS: Diagnosis Discharge Diagnosis (1) Hypokalemia: Status: Acute (2) Hypomagnesemia: Status: Acute (3) Hypoalbuminemia: Status: Acute (4) Bilateral edema of lower extremity: Status: Acute (5) ADHD: (6) Opioid dependence on agonist therapy: (7) Normocytic normochromic anemia: Status: Acute (8) GERD (gastroesophageal reflux disease): Status: Suspected (9) Diarrhea: Status: Acute Discharge Plan Disposition Patient Disposition: Home Condition: Stable Discharge Details Reason For Visit: hypokalemia, hypomagnesemia Admit Date/Time: 02/06/24 00:07 Admit Provider: Junior Carvajal Attending Provider: Junior Carvajal Primary Care Provider: Georgina Leyva Hospital Course Hospital Course: 43-year-old female patient past medical history significant for opioid use disorder on Suboxone, chronic pancreatitis, alcohol use disorder, hypokalemia, GERD who presented to the emergency department with the diarrhea or illness. She was found to be hypokalemic which is chronic for her but more significant wi th a potassium of 1.6. She was admitted to the medical surgical unit for electrolyte replacement. Stool was sent which was negative for C. difficile or bacterial pathogens. It was positive for lactoferrin. Her symptoms improved and potassium recovered to 3.2. She felt improved and was requesting discharge to home. She was advised to continue her spironolactone and potassium replacement doubling it for the next week and following up with her primary care provider for further lab evaluation and recommendations. She was also advised to discuss GI referral with her primary care provider for possible upper and lower endoscopy if recommended. She is discharged to home with no new services Discharge discussed with Dr. Amaya Home Meds and New Rx's Prescriptions: New loperamide 2 mg Capsule 2 mg PO QLOOSE PRNQty: 0 0RF Continued trazodone 50 mg tablet 50 mg PO HS Patient Comments: take 1 tablet by mouth at bedtime dextroamphetamine-amphetamine 20 mg tablet 1 tab PO 1400 Rx Instructions: 30MG QAM, 20MG @ 2PM dextroamphetamine-amphetamine 30 mg tablet 30 mg PO DAILY Patient Comments: TAKE ONE TABLET BY MOUTH EVERY MORNING spironolactone 50 mg tablet 50 mg PO DAILY Qty: 30 0RF albuterol sulfate 90 mcg/actuation HFA aerosol inhaler 1 inh INHALATION Q4H PRN spironolactone 25 mg tablet 25 mg PO DAILY Brixadi 64 mg/0.18 mL solution, extended rel syringe 64 mg SUBCUT .monthly Changed potassium chloride 20 mEq tablet extended release 40 meq PO BIDWMEAL Qty: 0 0RF Discharge Instructions Instructions: Hypokalemia Additional Instructions: increase potassium to 2 times daily for one week, then go back to daily. use imodium as directed for loose stools. Stand Alone Forms: Nursing Discharge Form Referrals: Georgina Leyva [Primary Care Provider] - (Please call your primary care, and schedule a follow up appt. in 1-2 weeks) Activity:: Activity as Tolerated Equipment/Supplies:: Blood Glucose Monitor Diet:: As Tolerated Discharge Orders Discharge Orders: Discharge Order (Routine); Ordered 02/09/24 Ordered By: Tanya Shaw Discharge Data Discharge Date/Time-TO BE ENTERED AT DEPARTURE: 02/09/24 13:20 DS: Summary Time Spent with Patient providing and/or coordinating discharge services: Less than 30 minutes Status at Discharge Functional status at discharge: independent ambulation Overall status at discharge: patient is back to baseline Mental Status: mental status grossly normal Speech and Movement: speech and movement normal Mood: congruent mood Affect: normal affect Quality:SDOH Health Related Social Needs: Health related social needs details Resume BAART subox one [facility] treatment Health related social needs details: Resume BAART suboxone [facility] treatment Exam Narrative Exam Narrative: Chronically ill-appearing female in no acute distress head is atraumatic oral mucosa is moist neck is supple no JVD cardiovascular regular rate and rhythm breath sounds are clear bilaterally diminished in the bases respirations are even and unlabored abdomen is slightly distended generalized tenderness no guarding no rebound her extremities she has peripheral edema bilaterally and hands are discolored/reddened. Psychiatric her mood and affect are appropriate she is cooperative Psych Mental Status: mental status grossly normal Speech and Movement: speech and movement normal Mood: congruent mood Affect: normal affect DS: Data Vitals/I&O Vitals and I&O: Vital Signs Temperature 36.8 C 02/09/24 11:20 Temperature Source Skin 02/09/24 11:20 Pulse 95 H 02/09/24 11:20 Pulse Rhythm Regular 02/09/24 08:47 Respiratory Rate 15 02/09/24 11:20 Respiratory Effort Normal, Non-Labored 02/09/24 08:47 Respiratory Depth Normal 02/09/24 08:47 Respiratory Pattern Normal 02/09/24 08:47 Blood Pressure 130/91 H 02/09/24 11:20 Blood Pressure Position Sitting 02/05/24 22:35 Pulse Oximetry 100 02/09/24 11:20 Oxygen Delivery Method Room Air 02/09/24 11:20 Oxygen Flow Rate 0 02/09/24 11:20 Pain Level 0 02/09/24 11:20 Intake & Output 02/08/24 02/09/24 02/09/24 23:59 11:59 23:59 Intake Total 1300 / 3220.000 860 / 860 Output Total 200 / 200 Balance 1300 / 3120.000 660 / 660 Weight 64.773 kg Intake: IV 1100 / 2500.000 860 / 860 Oral 200 / 720 Output: Urine 200 / 200 Other: Urine Color Yellow Urine Appearance Clear Clear Urine Odor None Comment per patient she has been up voiding all day Stool Size Small Stool Characteristics Liquid Voiding Methods Toilet Data Completed and Pending Labs on day of discharge: Labs from last 24 hours 02/09/24 02/08/24 10:11 17:00 WBC 9.85 RBC 2.45 L Hgb 8.4 L Hct 24.0 L MCV 98 H MCH 34.3 H MCHC 35.0 RDW 15.4 H Plt Count 360 MPV 10.0 Immature Gran % 0.8 Neutrophils % 65.1 Lymphocytes % 22.3 Monocytes % 7.8 Eosinophils % 2.8 Basophils % 1.2 Nucleated RBC % 0.0 Absolute Neutrophils 6.40 Absolute Lymphocytes 2.20 Absolute Monocytes 0.77 Absolute Eosinophils 0.28 Absolute Basophils 0.12 Sodium 144 143 Potassium 3.2 L 3.2 L D Chloride 113 H 112 H Carbon Dioxide 23.6 23.1 Anion Gap 7.4 7.9 BUN < 1 L 0 L Creatinine 0.5 L 0.5 L Est GFR (CKD-EPI 2020) 120.02 120.02 Glucose 127 H 125 H Calcium 7.2 L 6.9 L Magnesium 1.4 L 1.5 L PFSH All Active Problems (Updated 02/07/24 @ 19:32 by Melony Loya APRN) Diarrhea (Acute) On deep vein thrombosis (DVT) prophylaxis (Acute) Normocytic normochromic anemia (Acute) Hypokalemia (Acute) Hypoalbuminemia (Acute) Hypomagnesemia (Acute) Bilateral edema of lower extremity (Acute) Opioid use disorder in remission (Chronic) Hypocalcemia (Chronic) Insomnia (Acute) Chronic pancreatitis (Chronic) Medical History (Updated 02/07/24 @ 19:32 by Melony Loya APRN) Pancreatic pseudocyst Pancreatic mass Anasarca Ganglion cyst of dorsum of left wrist Colitis ADHD Opioid dependence on agonist therapy Surgical History S/P cholecystectomy and removal of two pancreatic pseudocysts Social History Smoking/Tobacco Use Status: Current every day Tobacco Type: cigarettes Smoking packs per day: 0.5 Smoking cigarettes per day: 10.0 Years smoked: 27 Smoking pack-years: 13.50 Quit status: considering quitting Counseling given: provider counseling and support medications Smoking risk assessment performed?: Yes Alcohol Intake: current Alcohol Intake frequency: a few times a month Alcohol type: beer Counseling provided: provider counseling Drug use: Occasionally Substance use type: marijuana Housing: apartment Do you feel safe at home: Yes Do you feel safe in your relationship?: Yes Time Spent with Patient Time Spent with Patient: <45 minutes Time was spent: preparing to see the patient(eg.review tests), ordering medications,tests, procedures, indepentently interpreting results and counseling the patient
== END 2024-02-09 13:20 | disposition home or self-care (01) | DRG 641 ==
LOC: ER 02-06 00:21 → MS 02-06 00:55
PROVIDERS: Nurse Practitioner Acute Care; Nurse Practitioner Family; Admitting Provider Internal Medicine; Emergency Provider Emergency Medicine; PCP Nurse Practitioner Family; Visit Provider Internal Medicine
DX: E87.6 Hypokalemia (principal); F11.20 Opioid dependence, uncomplicated; K86.1 Other chronic pancreatitis; E88.09 Other disorders of plasma-protein metabolism, not elsewhere classified; E83.42 Hypomagnesemia; R60.0 Localized edema; F90.2 Attention-deficit hyperactivity disorder, combined type; K21.9 Gastro-esophageal reflux disease without esophagitis; K64.9 Unspecified hemorrhoids; R19.7 Diarrhea, unspecified; Z79.899 Other long term (current) drug therapy; K70.10 Alcoholic hepatitis without ascites; G47.00 Insomnia, unspecified; F10.10 Alcohol abuse, uncomplicated; F17.210 Nicotine dependence, cigarettes, uncomplicated
CPT/HCPCS: 00123; 36415; 74220; 80048; 80053; 83690; 84145; 87493; 87505; 87637; 92610; 93005; 96365; 96366; 97161; 99285; 71046; 82270; 82607; 82728; 82746; 83540; 83550; 83630; 83735; 83880; 84132; 84466; 84484; 85025; 85045; 85610; 93010; 99222; 99231; 99233; 99238; J3475; J3480; J3490

== ENCOUNTER 2024-02-15 11:26 | Outpatient (CLI) | payer MEDICARE, SELFPAY ==
[2024-02-15 11:26] LABS: ALT 67 U/L (14-59); AST 80 U/L (15-37); Albumin 1.5 g/dL (3.4-5.0); Alkaline Phosphatase 212 U/L (46-116); Anion Gap 9.8 mmol/L (3-11); BUN 1 mg/dL (7-18); Bilirubin, Total 0.76 mg/dL (0.2-1.0); CO2 23.2 mmol/L (21.0-32.0); CREATININE 0.7 mg/dL (0.55-1.02); Calcium 8.1 mg/dL (8.5-10.1); Chloride 111 mmol/L (98-107); Estimated GFR 110.67 (mL/min/1.73m2); Glucose 152 mg/dL (74-106); Potassium 3.2 mmol/L (3.5-5.1); Sodium 144 mmol/L (136-145); Total Protein 5.4 g/dL (6.4-8.2)
== END 2024-02-15 11:27 | disposition home or self-care (01) ==
LOC: LBO 11:26
PROVIDERS: PCP Nurse Practitioner Family; Visit Provider Nurse Practitioner Family
DX: E83.51 Hypocalcemia (principal); E83.42 Hypomagnesemia; E87.6 Hypokalemia
CPT/HCPCS: 36415; 80053

== ENCOUNTER 2024-02-28 16:40 | Outpatient (CLI) | payer MEDICARE, SELFPAY ==
[2024-02-28 12:09] LABS: Hemoglobin A1C 4.9 % (<5.7)
[2024-02-28 12:26] LABS: Potassium 1.9 mmol/L (3.5-5.1)
[2024-02-28 23:52] LABS: Hepatitis A Antibody IgM Negative (Negative); Hepatitis B Core Antibody Negative (Negative); Hepatitis B surface Ag Negative (Negative); Hepatitis C Ab w Rflx HCV PCR Reactive (Negative)
[2024-03-01 12:55] LABS: HCV RNA Qualitative Undetected (Undetected)
== END 2024-02-28 16:41 | disposition home or self-care (01) ==
LOC: LBO 16:40
PROVIDERS: PCP Nurse Practitioner Family; Visit Provider Nurse Practitioner Family
DX: E56.1 Deficiency of vitamin K (principal); R74.01 Elevation of levels of liver transaminase levels; E88.09 Other disorders of plasma-protein metabolism, not elsewhere classified; E77.8 Other disorders of glycoprotein metabolism
CPT/HCPCS: 36415; 86704; 86709; 86803; 87340; 87522; 83036; 84132

== ENCOUNTER 2024-02-29 20:17 | Inpatient (IN) | payer MEDICARE, SELFPAY ==
[2024-02-29] VITALS (34 sets, daily range): BP systolic 113–140; BP diastolic 72–94; PULSE 85–125; RESP 15–26; TEMP 37.3; O2SAT 96–100
--- NOTE | 2024-02-29 20:15 | RT.EKG_ITS ---
APPROVED REPORT Exam: Resting ECG Reason for Exam: low pot Patient Location: E HR:116 bpm ECG Measurements Heart Rate 116 AXIS WY 143 P 69 QRSd 80 QRS 47 QT [id number] T 237 QTc 0 Conclusion Sinus tachycardia, rate 116 PVCs Diffuse non-specific T-wave abnormalities
[2024-02-29 20:44] LABS: Abs Immature Grans 0.06 10^3/uL (0.0-0.06); Absolute Basophil Count 0.08 10^3/uL (0.0-0.2); Absolute Eosinophil Count 0.55 10^3/uL (0.0-0.7); Absolute Lymphocyte Count 2.69 10^3/uL (1.2-3.4); Absolute Monocyte Count 0.94 10^3/uL (0.1-0.8); Basophils % 0.7 %; Eosinophils % 4.9 %; HCT 27.3 % (36.0-46.0); HGB 9.8 g/dL (11.2-15.7); Immature Grans % 0.5 %; Lymphocytes % 24.1 %; MCH 32.6 pg (27.0-33.0); MCHC 35.9 % (32.0-36.0); MCV 91 fL (80-95); MPV 9.5 fL (8.0-11.0); Monocytes % 8.4 %; Neutrophils % 61.4 %; Platelet Count 357 10^3/uL (130-400); RBC 3.01 10^6/uL (3.93-5.22); RDW 12.8 % (11.7-14.6); RDW-SD 42.3 fL; WBC 11.17 10^3/uL (4.4-10.8)
[2024-02-29 20:46] LABS: Absolute Neutrophil Count 6.86 10^3/uL (1.2-6.7)
--- NOTE | 2024-02-29 20:51 | ED.GENADUL_ITS ---
Discharge Plan Discharge Details Chief Complaint: Dizzy/Sync Primary Care Provider: Georgina Leyva ED Provider: Shoshana Ramírez Home Meds and New Rx's Prescriptions: No Action trazodone 50 mg tablet 50 mg PO HS Patient Comments: take 1 tablet by mouth at bedtime dextroamphetamine-amphetamine 20 mg tablet 1 tab PO 1400 Rx Instructions: 30MG QAM, 20MG @ 2PM dextroamphetamine-amphetamine 30 mg tablet 30 mg PO DAILY Patient Comments: TAKE ONE TABLET BY MOUTH EVERY MORNING spironolactone 50 mg tablet 50 mg PO DAILY Qty: 30 0RF albuterol sulfate 90 mcg/actuation HFA aerosol inhaler 1 inh INHALATION Q4H PRN spironolactone 25 mg tablet 25 mg PO DAILY Brixadi 64 mg/0.18 mL solution, extended rel syringe 64 mg SUBCUT .monthly loperamide 2 mg Capsule 2 mg PO QLOOSE PRNQty: 0 0RF potassium chloride 20 mEq tablet extended release 40 meq PO BIDWMEAL Qty: 0 0RF HPI General Date/Time Provider Initiated Documentation: 02/29/24 20:19 . Limitations to Documentation: no limitations . Information obtained by: patient and old records reviewed . HPI Narrative: MDM: This is a 43-year-old female patient presenting for evaluation of hypokalemia, tachycardia and general malaise. My differential includes but is not limited to electrolyte abnormality, potentially due to GI losses, poor nutrition, medication compliance also considered. I considered kidney injury, liver dysfunction, dehydration. The patient's shortness of breath and cough could be a viral upper respiratory infection, I considered pneumonia, patient is without wheezing or other focal lung findings to suggest reactive airway disease exacerbation, pulmonary edema, pleural effusion, pneumothorax. We will provide the patient with 40 mEq of oral potassium as well as 40 mEq by IV. I anticipate needing to replete her magnesium as well, we will obtain laboratory studies to include CBC, CMP, magnesium, troponin. I will also obtain a chest x-ray. ED Course: I reviewed the patient's laboratory studies, which shows no significant leukocytosis, stable anemia at 9.8, no thrombocytopenia. Chemistry panel is most notable for hypokalemia to 1.8, hypomagnesemia of 1.6, no evidence of renal dysfunction. The patient has a mild transaminitis which is baseline for her, as well as an elevation in alk phos. Troponin was negative, and the urine studies are without proteinuria, evidence of infection, and the urine potassium spot was 3.3. I discussed this patient's case with our hospitalist who [place] [facility] [place] to ensure that there were no renal causes of her hypokalemia, and this was done. The turning sander tender is reassured by the lack of renal findings and the appropriate sparing of the potassium by the kidneys. He would have expected that if this was due to renal dumping the random potassium urine level would have been much higher. Additionally, the patient is not hypertensive, making secondary hyperaldosterone syndromes less likely. I signed out care of this patient to the oncoming provider prior to recheck of her metabolic panel after repletion to determine if she is responding appropriately. All further care per the oncoming team. Shoshana Ramírez MD HPI: This is a 43-year-old female patient with a past medical history significant for opioid use disorder in remission, chronic pancreatitis, and recent admission to this hospital for hypokalemia and hypomagnesemia, discharged 02/09/2024, presenting for evaluation of dizziness and general malaise and l aboratory abnormalities. The patient reports that she has been taking her medications as prescribed, which includes supplemental potassium as well as spironolactone. She has continued to have diarrhea, which was present on her last admission (C. difficile negative, unchanged from baseline, no recent risk factors such as travel, unclean water source exposure, or recent sick contacts). The patient states that she was notified by her primary care provider to seek care because her potassium was 1.9 in the outpatient environment today. The patient reports that she is experiencing some shortness of breath, cough, states that she feels generally unwell and that this has been the case the last few times that her potassium was very low. She reports that she is maintained typical nutrition for her, has not had any other changes in her medications. Exam: Gen: Awake and alert, in no apparent distress HEENT: Non-icteric sclera Neck: Supple Lungs: No apparent respiratory distress, normal respiratory effort. CV: Appears well perfused lung sounds clear and equal bilaterally Abdomen: Non-distended, heart with tachycardic rate, regular rhythm MSK: Moves 4 extremities without apparent limitation in ROM Skin: Visualized skin without rashes, cyanosis. Neuro: Normal Gait, no obvious focal deficits or facial asymmetry. Speaks in full, clear sentences. Psych: Appropriate for situation. Related Data Home Medications ?Medication ?Instructions ?Recorded ?Confirmed dextroamphetamine-amphetamine 20 1 tab PO 1400 08/04/22 02/05/24 mg tablet trazodone 50 mg tablet 50 mg PO HS 05/31/23 02/05/24 dextroamphetamine-amphetamine 30 30 mg PO DAILY 10/26/23 02/05/24 mg tablet spironolactone 50 mg tablet 50 mg PO DAILY #30 tabs 10/31/23 02/05/24 albuterol sulfate 90 mcg/actuation 1 inh inhalation Q4H PRN 02/05/24 02/05/24 aerosol inhaler buprenorphine 64 mg/0.18 mL 64 mg subcut .monthly 02/05/24 02/05/24 solution,exten.rel.subcutaneous syringe (Brixadi Monthly) spironolactone 25 mg tablet 25 mg PO DAILY 02/05/24 02/05/24 loperamide 2 mg capsule 2 mg PO QLOOSE PRN #0 caps 02/09/24 potassium chloride 20 mEq 40 meq (2 x 20 mEq) PO BIDWMEAL #0 02/09/24 02/05/24 tablet,extended release tabs Previous Rx's ?Medication ?Instructions ?Recorded spironolactone 50 mg tablet 50 mg PO DAILY #30 tabs 10/31/23 loperamide 2 mg capsule 2 mg PO QLOOSE PRN #0 caps 02/09/24 potassium chloride 20 mEq 40 meq (2 x 20 mEq) PO BIDWMEAL #0 02/09/24 tablet,extended release tabs Allergies Allergy/AdvReac Type Severity Reaction Status Date / Time No Known Allergies Allergy Unverified 02/05/24 22:03 General Stated Complaint: Dizzy/Sync ADRIANA: 3 Course Vital Signs Vital signs: Vital Signs Temperature 37.3 C 02/29/24 20:24 Pulse 125 H 02/29/24 20:24 Respiratory Rate 15 02/29/24 20:24 Blood Pressure 113/94 H 02/29/24 20:24 Pulse Oximetry 99 02/29/24 20:24 Temperature 37.3 C 02/29/24 20:24 Temperature Source Tympanic 02/29/24 20:24 Pulse 125 H 02/29/24 20:24 Respiratory Rate 20 02/29/24 20:27 Respiratory Effort Normal 02/29/24 20:27 Respiratory Depth Normal 02/29/24 20:27 Respiratory Pattern Normal 02/29/24 20:27 Blood Pressure 113/94 H 02/29/24 20:24 Blood Pressure Position Sitting 02/29/24 20:24 Pulse Oximetry 99 02/29/24 20:24 Lab/Test Results Lab/Test Results: Laboratory Tests Range/Units 02/29/24 20:40 WBC (4.4-10.8) 10^3/uL 11.17 H RBC (3.93-5.22) 10^6/uL 3.01 L Hgb (11.2-15.7) g/dL 9.8 L Hct (36.0-46.0) % 27.3 L MCV (80-95) fL 91 MCH (27.0-33.0) pg 32.6 MCHC (32.0-36.0) % 35.9 RDW (11.7-14.6) % 12.8 Plt Count (130-400) 10^3/uL 357 MPV (8.0-11.0) fL 9.5 Immature Gran % % 0.5 Neutrophils % % 61.4 Lymphocytes % % 24.1 Monocytes % % 8.4 Eosinophils % % 4.9 Basophils % % 0.7 Nucleated RBC % (0.0-0.3) % 0.0 Absolute Neutrophils (1.2-6.7) 10^3/uL 6.86 H Absolute Lymphocytes (1.2-3.4) 10^3/uL 2.69 Absolute Monocytes (0.1-0.8) 10^3/uL 0.94 H Absolute Eosinophils (0.0-0.7) 10^3/uL 0.55 Absolute Basophils (0.0-0.2) 10^3/uL 0.08 Medical Decision Making Quality:SDOH Health Related Social Needs: Health related social needs details Resume [facility]al[facility] one DAVID treatment PFSH All Active Problems (Updated 02/19/24 @ 00:01 by WANDY ANAYA) Diarrhea (Acute) Normocytic normochromic anemia (Acute) Hypokalemia (Acute) Hypoalbuminemia (Acute) Hypomagnesemia (Acute) Bilateral edema of lower extremity (Acute) Opioid use disorder in remission (Chronic) Hypocalcemia (Chronic) Insomnia (Acute) Chronic pancreatitis (Chronic) Medical History (Updated 02/19/24 @ 00:01 by WANDY ANAYA) Pancreatic pseudocyst Pancreatic mass Anasarca Ganglion cyst of dorsum of left wrist Colitis ADHD Opioid dependence on agonist therapy Surgical History S/P cholecystectomy and removal of two pancreatic pseudocysts Social History Smoking/Tobacco Use Status: Current every day Tobacco Type: cigarettes Smoking packs per day: 0.5 Smoking cigarettes per day: 10.0 Years smoked: 27 Smoking pack-years: 13.50 Quit status: considering quitting Counseling given: provider counseling and support medications Smoking risk assessment performed?: Yes Alcohol Intake: current Alcohol Intake frequency: a few times a month Alcohol type: beer Counseling provided: provider counseling Drug use: Occasionally Substance use type: marijuana Housing: apartment Do you feel safe at home: Yes Do you feel safe in your relationship?: Yes Sign Out Sign Out Data: Sign Out Comment: 43-year-old female patient with a recent admission for hypokalemia/hypomagnesemia, thought to be due to GI losses, presenting with recurrent hypokalemia to 1.8. EKG with a prolonged QTc, otherwise hemodynamically appropriate. 40 p.o., 40 IV, and 2 g of mag. Hospitalist aware, given relative asymptomatic-ness requested repeat labs after repletion prior to acceptance. [place] [facility] [place], after relatively reassuring renal workup with no further recommendations. Last updated by Shoshana Ramírez MD at 02/29/24 23:39 PAWSS Have you Been Recently Intoxicated or Drunk Within the Last 30 days?: No Have you Ever Experienced Previous Episodes of Alcohol Withdrawal?: No Have you ever Experienced Withdrawal Seizures?: No Have you ever Experienced Delirium Tremens(DT)s?: No Have you ever undergone Alcohol Rehabilitation Treatment (i.e, inpt ot outpatient treatment programs)?: No Have you ever Experienced Blackouts?: No Have you ever Combined Alcohol with other Downers within the last 90 days?: No Have you ever Combined Alcohol with any other Substance of Abuse during the last 90 days?: No Positive Blood Alcohol level on Presentation? [PCS.BAL]: No Evidence of Increased Autonomic Activity (i.e. HR>120, tremor, sweating, agitation, nausea)?: No Result: 0
[2024-02-29 21:02] LABS: ALT 60 U/L (14-59); AST 67 U/L (15-37); Albumin 1.6 g/dL (3.4-5.0); Alkaline Phosphatase 295 U/L (46-116); Anion Gap 13.9 mmol/L (3-11); BUN 1 mg/dL (7-18); Bilirubin, Total 0.66 mg/dL (0.2-1.0); CO2 21.1 mmol/L (21.0-32.0); CREATININE 0.8 mg/dL (0.55-1.02); Calcium 8.2 mg/dL (8.5-10.1); Chloride 104 mmol/L (98-107); Estimated GFR 94.28 (mL/min/1.73m2); Glucose 188 mg/dL (74-106); Magnesium 1.6 mg/dL (1.8-2.4); Sodium 139 mmol/L (136-145); Total Protein 5.6 g/dL (6.4-8.2); Troponin I < 50 ng/L (< or =60)
[2024-02-29 21:04] LABS: Potassium 1.8 mmol/L (3.5-5.1)
[2024-02-29] MEDS: Potassium Chloride 20 MEQ TABCR 40 MEQ PO (21:10)
[2024-02-29] MEDS: POTASSIUM CHLORIDE 20 MEQ/100 ML BAG 50 MEQ IVINF ×2 (21:15→22:45)
--- NOTE | 2024-02-29 21:15 | DI.RAD_ITS ---
Exam(s) XR PORTABLE CHEST AP EXAM: XR PORTABLE CHEST AP CLINICAL HISTORY: SOB/Cough. TECHNIQUE: 2D digital imaging was performed. COMPARISON: CR,RF RF BARIUM SWALLOW SINGLE from 02/08/2024 FINDINGS: Single AP portable view. Heart size is upper normal. The mediastinum is not widened. Lungs are clear. No infiltrates nor obvious pleural effusions. IMPRESSION: No acute pulmonary findings on this single AP portable view of the chest. DATA REPOSITORY: RADIATION DOSE DELIVERED:
[2024-02-29] MEDS: MAGNESIUM SULFATE 2 GM/50 ML BAG IVINF (21:20)
--- NOTE | 2024-02-29 21:55 | DI.VRAD_ITS ---
PROCEDURE INFORMATION: Exam: XR Chest Exam date and time: 02/29/2024 9:13 PM Age: 43 years old Clinical indication: Cough and shortness of breath TECHNIQUE: Imaging protocol: Radiologic exam of the chest. Views: 1 view. Total images: 1 COMPARISON: CR XR CHEST 2V PA LATERAL 02/05/2024 10:43 PM FINDINGS: Lungs: Lungs are clear without consolidation. Pleural spaces: No pleural effusion or pneumothorax. Heart/Mediastinum: Unremarkable. Bones/joints: Unremarkable. IMPRESSION: No acute findings. Dictated and Authenticated by: Chris Villa MD. Ordering:JESICA Marcos MD
[2024-02-29 22:08] LABS: Bilirubin Negative (Negative); Blood Negative (Negative); Clarity Clear (Clear); Glucose Negative (Negative); Ketones Negative (Negative); Leukocyte Esterase Trace (Negative); Nitrite Negative (Negative); Urobilinogen 0.2 mg/dL (Up to 0.2); pH 6.5 (5-8)
[2024-02-29 22:16] LABS: POTASSIUM,URINE RANDOM 3.3 mmol/L
[2024-02-29 22:22] LABS: Bacteria Moderate HPF (Negative); C & S Indicated? No; Crystals Negative HPF (Negative); Epithelial Cells Few HPF (Negative); Mucus Negative (Negative); RBC Negative HPF (0-2); WBC 0-2 HPF (0-5)
--- NOTE | 2024-02-29 22:45 | RT.EKG_ITS ---
APPROVED REPORT Exam: Resting ECG Reason for Exam: Repeat Patient Location: E HR:89 bpm ECG Measurements Heart Rate 89 AXIS WY 127 P 90 QRSd 96 QRS 63 QT 502 T 63 QTc 612 Conclusion Sinus rhythm Prolongued QTc No STEMI
[2024-03-01] VITALS (32 sets, daily range): BP systolic 117–148; BP diastolic 83–98; PULSE 76–109; RESP 2–21; TEMP 36.5–37.3; O2SAT 98–100
--- NOTE | 2024-03-01 00:01 | ED.PROG_ITS ---
Date of service: 03/01/24 Time of Service: 00:01 Medical Decision Making This patient was signed out to me. Please see previous notes for H&P and initial eval. In brief, 43yo F with recent admission for hypokalemia presenting with low potassium despite oral supplementation at home. K of 1.8 on arrival with QT prolongation. IV and PO repletion given as well as magnesium. Has been discussed with hospitalist; not accepted for admission at this time and repeat BMP/Mg post repletion was requested. Signed out pending repeat bloodwork and further discussion with hospitalist. Repeat BMP with critically low K of 2.4, Mg 2.2. QT remains somewhat prolonged, ~550 on the monitor. Given pt reports compliance with PO potassium at home and K dangerously low at 1.8, warrants further monitored IV and PO replacement in the hospital and observation stay to further replace K and repeat BMPs. Discussed with hospitalist and patient accepted; awaiting orders. Lab Data Lab results reviewed: Yes I reviewed the patient's lab results. Labs: Laboratory Tests Range/Units 02/29/24 02/29/24 02/29/24 00:55 20:40 21:55 WBC (4.4-10.8) 10^3/uL 11.17 H RBC (3.93-5.22) 10^6/uL 3.01 L Hgb (11.2-15.7) g/dL 9.8 L Hct (36.0-46.0) % 27.3 L MCV (80-95) fL 91 MCH (27.0-33.0) pg 32.6 MCHC (32.0-36.0) % 35.9 RDW (11.7-14.6) % 12.8 Plt Count (130-400) 10^3/uL 357 MPV (8.0-11.0) fL 9.5 Immature Gran % % 0.5 Neutrophils % % 61.4 Lymphocytes % % 24.1 Monocytes % % 8.4 Eosinophils % % 4.9 Basophils % % 0.7 Nucleated RBC % (0.0-0.3) % 0.0 Absolute Neutrophils (1.2-6.7) 10^3/uL 6.86 H Absolute Lymphocytes (1.2-3.4) 10^3/uL 2.69 Absolute Monocytes (0.1-0.8) 10^3/uL 0.94 H Absolute Eosinophils (0.0-0.7) 10^3/uL 0.55 Absolute Basophils (0.0-0.2) 10^3/uL 0.08 Sodium (136-145) mmol/L 141 139 Potassium (3.5-5.1) mmol/L 2.4 L* 1.8 L* Chloride (98-107) mmol/L 108 H 104 Carbon Dioxide (21.0-32.0) mmol/L 24.6 21.1 Anion Gap (3-11) mmol/L 8.4 13.9 H BUN (7-18) mg/dL 0 L 1 L Creatinine (0.55-1.02) mg/dL 0.7 0.8 Est GFR (CKD-EPI 2020) (mL/min/1.73m2) 110.67 94.28 Glucose (74-106) mg/dL 127 H 188 H Calcium (8.5-10.1) mg/dL 7.9 L 8.2 L Magnesium (1.8-2.4) mg/dL 2.2 1.6 L Total Bilirubin (0.2-1.0) mg/dL 0.66 AST (15-37) U/L 67 H ALT (14-59) U/L 60 H Alkaline Phosphatase (46-116) U/L 295 H Troponin I (< or =60) ng/L < 50 Total Protein (6.4-8.2) g/dL 5.6 L Albumin (3.4-5.0) g/dL 1.6 L TSH (0.36-3.74) uIU/mL 3.53 Urine Color (Yellow) Yellow Urine Clarity (Clear) Clear Urine pH (5-8) 6.5 Ur Specific [place] (1.005-1.025) 1.010 Urine Protein (Neg-Trace) mg/dL Negative Urine Ketones (Negative) mg/dL Negative Urine Blood (Negative) Negative Urine Nitrite (Negative) Negative Urine Bilirubin (Negative) Negative Urine Urobilinogen (Up to 0.2) mg/dL 0.2 Ur Leukocyte Esterase (Negative) Trace H Urine RBC (0-2) HPF Negative Urine WBC (0-5) HPF 0-2 Ur Epithelial Cells (Negative) HPF Few Urine Crystals (Negative) HPF Negative Urine Bacteria (Negative) HPF Moderate Urine Mucus (Negative) Negative Ur Culture Indicated? No Ur Random Potassium mmol/L 3.3 Urine Glucose (Negative) mg/dL Negative Range/Units 03/01/24 00:55 WBC (4.4-10.8) 10^3/uL RBC (3.93-5.22) 10^6/uL Hgb (11.2-15.7) g/dL Hct (36.0-46.0) % MCV (80-95) fL MCH (27.0-33.0) pg MCHC (32.0-36.0) % RDW (11.7-14.6) % Plt Count (130-400) 10^3/uL MPV (8.0-11.0) fL Immature Gran % % Neutrophils % % Lymphocytes % % Monocytes % % Eosinophils % % Basophils % % Nucleated RBC % (0.0-0.3) % Absolute Neutrophils (1.2-6.7) 10^3/uL Absolute Lymphocytes (1.2-3.4) 10^3/uL Absolute Monocytes (0.1-0.8) 10^3/uL Absolute Eosinophils (0.0-0.7) 10^3/uL Absolute Basophils (0.0-0.2) 10^3/uL Sodium (136-145) mmol/L Potassium (3.5-5.1) mmol/L Chloride (98-107) mmol/L Carbon Dioxide (21.0-32.0) mmol/L Anion Gap (3-11) mmol/L BUN (7-18) mg/dL Creatinine (0.55-1.02) mg/dL Est GFR (CKD-EPI 2020) (mL/min/1.73m2) Glucose (74-106) mg/dL Calcium (8.5-10.1) mg/dL Magnesium (1.8-2.4) mg/dL Total Bilirubin (0.2-1.0) mg/dL AST (15-37) U/L ALT (14-59) U/L Alkaline Phosphatase (46-116) U/L Troponin I (< or =60) ng/L < 50 Total Protein (6.4-8.2) g/dL Albumin (3.4-5.0) g/dL TSH (0.36-3.74) uIU/mL Urine Color (Yellow) Urine Clarity (Clear) Urine pH (5-8) Ur Specific [place] (1.005-1.025) Urine Protein (Neg-Trace) mg/dL Urine Ketones (Negative) mg/dL Urine Blood (Negative) Urine Nitrite (Negative) Urine Bilirubin (Negative) Urine Urobilinogen (Up to 0.2) mg/dL Ur Leukocyte Esterase (Negative) Urine RBC (0-2) HPF Urine WBC (0-5) HPF Ur Epithelial Cells (Negative) HPF Urine Crystals (Negative) HPF Urine Bacteria (Negative) HPF Urine Mucus (Negative) Ur Culture Indicated? Ur Random Potassium mmol/L Urine Glucose (Negative) mg/dL Quality:SDOH Health Related Social Needs: Health related social needs details Resume [facility] treatment Sign Out Sign Out Data: Sign Out Comment: 43-year-old female patient with a recent admission for hypokalemia/hypomagnesemia, thought to be due to GI losses, presenting with recurrent hypokalemia to 1.8. EKG with a prolonged QTc, otherwise hemodynamically appropriate. 40 p.o., 40 IV, and 2 g of mag. Hospitalist aware, given relative asymptomatic-ness requested repeat labs after repletion prior to acceptance. [place] [facility] [place], after relatively reassuring renal workup with no further recommendations. Last updated by Shoshana Ramírez MD at 02/29/24 23:39 Discharge Plan Discharge Details Chief Complaint: Dizzy/Sync Primary Care Provider: Georgina Leyva ED Provider: Shruthi Beatty Home Meds and New Rx's Prescriptions: No Action trazodone 50 mg tablet 50 mg PO HS Patient Comments: take 1 tablet by mouth at bedtime spironolactone 50 mg tablet 100 mg PO BID dextroamphetamine-amphetamine 20 mg tablet 1 tab PO 1400 Rx Instructions: 30MG QAM, 20MG @ 2PM dextroamphetamine-amphetamine 30 mg tablet 30 mg PO DAILY Patient Comments: TAKE ONE TABLET BY MOUTH EVERY MORNING albuterol sulfate 90 mcg/actuation HFA aerosol inhaler 1 inh INHALATION Q4H PRN Brixadi 64 mg/0.18 mL solution, extended rel syringe 64 mg SUBCUT .monthly potassium chloride 20 mEq tablet extended release 40 meq PO BIDWMEAL Qty: 0 0RF
[2024-03-01 01:22] LABS: Troponin I < 50 ng/L (< or =60)
--- NOTE | 2024-03-01 01:48 | W.PM.HP.N ---
Date of service: 03/01/24 Time of Service: 01:48 Assessment and Plan Assessment and plan (1) Hypokalemia: Start date: 03/01/24 Status: Acute Assessment and plan: This is a 43-year-old lady with chronic hypokalemia presently on spironolactone for anasarca and some peripheral edema persisting but not able to keep up with potassium supplementation as an outpatient on a medical dose of potassium daily. She has been hospitalized recently with increase in oral potassium and is not on magnesium though this was low as well. She continues to drink alcohol though less then previously. She is on Suboxone for substance abuse disorder. She states she is actually not using illicit drugs. Her diarrhea is most likely the reason for loss of potassium and presently she has QT prolongation which cardiology recommended monitoring while repleting potassium as an inpatient. Once we replete her potassium and need to increase her oral dose daily and monitor more closely. Magnesium also needs to be supplemented. Spironolactone will be continued which may help with hypokalemia. She is a full code. (2) Hypomagnesemia: Start date: 03/01/24 Status: Acute Assessment and plan: IV repletion and follow-up labs. Consider oral magnesium though choose formula that will not exacerbate diarrhea. Long-term she should follow-up with gastroenterology. (3) Diarrhea: Status: Chronic Assessment and plan: Symptomatic treatment and follow-up GI. She has seen gastroenterology in the past for chronic pancreatitis. Qualifiers: Diarrhea type: functional diarrhea Qualified Code(s): K59.1 - Functional diarrhea (4) Opioid use disorder in remission: Status: Chronic Assessment and plan: Continue subcutaneous Suboxone monthly. Check urine drug screen. (5) ADHD: Assessment and plan: Continue outpatient medical therapy. Qualifiers: Attention deficit-hyperactivity disorder type: combined inattentive-hyperactive Qualified Code(s): F90.2 - Attention-deficit hyperactivity disorder, combined type (6) Alcohol abuse: Status: Chronic Assessment and plan: Advised complete cessation. Patient does have continued electrolyte abnormalities with deficiencies and elevated liver function test. (7) Continuous tobacco abuse: Status: Chronic Assessment and plan: Advised cessation and NicoDerm patch while hospitalized. (8) COPD (chronic obstructive pulmonary disease): Status: Chronic Assessment and plan: Advise tobacco cessation currently. Nebulizer treatments while hospitalized. Qualifiers: COPD type: chronic bronchitis Chronic bronchitis type: mucopurulent Qualified Code(s): J41.1 - Mucopurulent chronic bronchitis History of Present Illness History of Present Illness Chief Complaint: Critically low potassium outpatient lab with chronic diarrhea Narrative: This is a 43-year-old female patient who has chronic opioid abuse in remission on subcutaneous Suboxone monthly with continued alcohol use disorder though decreased alcohol use since October 2023 when I last admitted the patient for anasarca with acute alcoholic hepatitis and electrolyte abnormalities. Since that hospitalization the patient has had chronic diarrhea and continued hypokalemia and not being able to reliably replete taking oral potassium supplement. She also has hypomagnesemia but is not on magnesium supplement. She was hospitalized early February 2020 for for this problem and placed on higher dose potassium supplement with continue spironolactone which was initiated in October 2023 when she had anasarca. The patient was feeling unwell with some shortness of breath and cough. She does smoke tobacco and does use inhaler occasionally. She has coughing producing sputum but not having fever or chills recently. She felt better after that hospitalization and then had outpatient labs done on the day of admission revealing critically low potassium again despite her supplement. She came to the ED stated she was feeling unwell and having cough with slight sputum production but no fever or change in color of the sputum. She was initiated on IV potassium and initially did not need magnesium but repeat labs showed low magnesium as well. She was given IV magnesium and will continue on IV potassium supplement with increase in her oral potassium if tolerated once she is repleted to potassium level above 3. In the ED cardiology was consulted because of QT prolongation and they had no other recommendations than to replete the potassium with observation on telemetry. Nephrology was also consulted and had no further recommendations with the creatinine normal and spot urine potassium being normal. They doubted hyperaldosteronism or nephrogenic cause for her hypokalemia. Patient will be admitted for continued monitoring of lab telemetry with repletion of potassium. She is a full code. Review of Systems Narrative: 13 point review of systems positive for occasional left ankle swelling despite current lifelong, continued loose stools which are frequent despite normal diet, otherwise unrevealing or stable. Patient has not had anasarca recurring. Await has been stable. PFSH All Active Problems (Updated 03/01/24 @ 03:35 by Phil Valencia) COPD (chronic obstructive pulmonary disease) (Chronic) Continuous tobacco abuse (Chronic) Alcohol abuse (Chronic) Hypokalemia (Acute) Diarrhea (Chronic) Normocytic normochromic anemia (Acute) Hypokalemia (Acute) Hypoalbuminemia (Acute) Hypomagnesemia (Acute) Bilateral edema of lower extremity (Acute) Opioid use disorder in remission (Chronic) Hypocalcemia (Chronic) Insomnia (Acute) Chronic pancreatitis (Chronic) Medical History Pancreatic pseudocyst Pancreatic mass Anasarca Ganglion cyst of dorsum of left wrist Colitis ADHD Opioid dependence on agonist therapy Surgical History S/P cholecystectomy and removal of two pancreatic pseudocysts Social History Smoking/Tobacco Use Status: Current every day Tobacco Type: cigarettes Smoking packs per day: 0.5 Smoking cigarettes per day: 10.0 Years smoked: 27 Smoking pack-years: 13.50 Quit status: considering quitting Counseling given: provider counseling and support medications Smoking risk assessment performed?: Yes Alcohol Intake: current Alcohol Intake frequency: a few times a month Alcohol type: beer Counseling provided: provider counseling Drug use: Occasionally Substance use type: marijuana Housing: apartment Do you feel safe at home: Yes Do you feel safe in your relationship?: Yes Meds Allergies and Home Medications Allergies Allergy/AdvReac Type Severity Reaction Status Date / Time No Known Allergies Allergy Unverified 02/05/24 22:03 Home Medications ?Medication ?Instructions ?Recorded ?Confirmed ?Type dextroamphetamine-amphetamine 20 1 tab PO 1400 08/04/22 03/01/24 History mg tablet trazodone 50 mg tablet 50 mg PO HS 05/31/23 03/01/24 History dextroamphetamine-amphetamine 30 30 mg PO DAILY 10/26/23 03/01/24 History mg tablet albuterol sulfate 90 mcg/actuation 1 inh inhalation Q4H PRN 02/05/24 03/01/24 History aerosol inhaler buprenorphine 64 mg/0.18 mL 64 mg subcut .monthly 02/05/24 03/01/24 History solution,exten.rel.subcutaneous syringe (Brixadi Monthly) potassium chloride 20 mEq 40 meq (2 x 20 mEq) PO BIDWMEAL #0 02/09/24 03/01/24 Rx tablet,extended release tabs spironolactone 50 mg tablet 100 mg PO BID 03/01/24 03/01/24 History Exam Narrative Exam Narrative: General: Patient appears older than stated age, alert and oriented x 3 and in no acute distress. She does have occasional coarse cough. HEENT: Normocephalic, course and facial features, pupils equal and reactive light symmetrically, extraocular movement intact and sclera anicteric. Oropharynx with moist mucosa and patient is edentulous. Neck: Supple without JVD. Back: Normal posture without CVA tenderness. Lungs: Bronchovesicular breath sounds diffusely with rhonchi and coarse crackles with slight increased expiratory phase and scattered expiratory wheeze. No focalizing rales. Heart: Regular in rhythm with no murmurs or gallops appreciated. Breast: Exam deferred. Abdomen: Slightly protuberant and obese, no fluid causing tenderness or guarding and no rebound. No palpable hepatosplenomegaly. Sounds positive slightly hyperactive in all quadrants. Genitalia/rectal exam deferred. Extremities: Nonpitting edema left ankle compared to right with no cyanosis or clubbing. Good capillary refill. Skin: Slightly pale, warm and dry. Neuro: Cranial nerves II through XII grossly intact, no focalizing motor deficits or tremor. Psych: Slightly flattened affect but normal mood. No abnormal thought processes. Remote and recent memory grossly intact. Results Imaging Imaging Studies: Exam: XR Chest Exam date and time: 02/29/2024 9:13 PM Age: 43 years old Clinical indication: Cough and shortness of breath TECHNIQUE: Imaging protocol: Radiologic exam of the chest. Views: 1 view. Total images: 1 COMPARISON: CR XR CHEST 2V PA LATERAL 02/05/2024 10:43 PM FINDINGS: Lungs: Lungs are clear without consolidation. Pleural spaces: No pleural effusion or pneumothorax. Heart/Mediastinum: Unremarkable. Bones/joints: Unremarkable. IMPRESSION: No acute findings. Labs 02/29/24 20:40 02/29/24 20:40 Labs: Laboratory Results - last 24 hr 02/29/24 02/29/24 02/29/24 00:55 20:40 21:55 WBC 11.17 H RBC 3.01 L Hgb 9.8 L Hct 27.3 L MCV 91 MCH 32.6 MCHC 35.9 RDW 12.8 Plt Count 357 MPV 9.5 Immature Gran % 0.5 Neutrophils % 61.4 Lymphocytes % 24.1 Monocytes % 8.4 Eosinophils % 4.9 Basophils % 0.7 Nucleated RBC % 0.0 Absolute Neutrophils 6.86 H Absolute Lymphocytes 2.69 Absolute Monocytes 0.94 H Absolute Eosinophils 0.55 Absolute Basophils 0.08 Sodium 141 139 Potassium 2.4 L* 1.8 L* Chloride 108 H 104 Carbon Dioxide 24.6 21.1 Anion Gap 8.4 13.9 H BUN 0 L 1 L Creatinine 0.7 0.8 Est GFR (CKD-EPI 2020) 110.67 94.28 Glucose 127 H 188 H Calcium 7.9 L 8.2 L Magnesium 2.2 1.6 L Total Bilirubin 0.66 AST 67 H ALT 60 H Alkaline Phosphatase 295 H Troponin I < 50 Total Protein 5.6 L Albumin 1.6 L TSH 3.53 Urine Color Yellow Urine Clarity Clear Urine pH 6.5 Ur Specific [place] 1.010 Urine Protein Negative Urine Ketones Negative Urine Blood Negative Urine Nitrite Negative Urine Bilirubin Negative Urine Urobilinogen 0.2 Ur Leukocyte Esterase Trace H Urine RBC Negative Urine WBC 0-2 Ur Epithelial Cells Few Urine Crystals Negative Urine Bacteria Moderate Urine Mucus Negative Ur Culture Indicated? No Ur Random Potassium 3.3 Urine Glucose Negative 03/01/24 00:55 WBC RBC Hgb Hct MCV MCH MCHC RDW Plt Count MPV Immature Gran % Neutrophils % Lymphocytes % Monocytes % Eosinophils % Basophils % Nucleated RBC % Absolute Neutrophils Absolute Lymphocytes Absolute Monocytes Absolute Eosinophils Absolute Basophils Sodium Potassium Chloride Carbon Dioxide Anion Gap BUN Creatinine Est GFR (CKD-EPI 2020) Glucose Calcium Magnesium Total Bilirubin AST ALT Alkaline Phosphatase Troponin I < 50 Total Protein Albumin TSH Urine Color Urine Clarity Urine pH Ur Specific [place] Urine Protein Urine Ketones Urine Blood Urine Nitrite Urine Bilirubin Urine Urobilinogen Ur Leukocyte Esterase Urine RBC Urine WBC Ur Epithelial Cells Urine Crystals Urine Bacteria Urine Mucus Ur Culture Indicated? Ur Random Potassium Urine Glucose Last Vital Signs Temp 37.3 C 02/29/24 20:24 Pulse 96 H 02/29/24 21:45 Resp 15 02/29/24 21:57 BP 123/74 02/29/24 21:45 Pulse Ox 100 02/29/24 21:57 PAWSS Have you Been Recently Intoxicated or Drunk Within the Last 30 days?: No Have you Ever Experienced Previous Episodes of Alcohol Withdrawal?: No Have you ever Experienced Withdrawal Seizures?: No Have you ever Experienced Delirium Tremens(DT)s?: No Have you ever undergone Alcohol Rehabilitation Treatment (i.e, inpt ot outpatient treatment programs)?: No Have you ever Experienced Blackouts?: No Have you ever Combined Alcohol with other Downers within the last 90 days?: No Have you ever Combined Alcohol with any other Substance of Abuse during the last 90 days?: No Positive Blood Alcohol level on Presentation? [PCS.BAL]: No Evidence of Increased Autonomic Activity (i.e. HR>120, tremor, sweating, agitation, nausea)?: No Result: 0 Time Spent Time spent with Patient: >75 minutes Time was spent: preparing to see the patient(eg.review tests), obtaining and/or reviewing separately otained hiistory, ordering medications,tests, procedures, referring, communicating with other health healthcare receptionist, indepentently interpreting results, counseling the patient and care coordination
[2024-03-01] MEDS: POTASSIUM CHLORIDE 20 MEQ/100 ML BAG 50 MEQ IVINF ×3 (02:47→11:49)
[2024-03-01 03:21] LABS: *AMPHETAMINES SCREEN URINE Positive (Negative); *BARBITURATES SCREEN URINE Negative (Negative); *BENZODIAZEPINES SCREEN URINE Negative (Negative); Cannabinoids THC Positive (Negative); Cocaine Screen,Urine Negative (Negative); METHADONE URINE SCREEN Negative (Negative); OPIATES URINE SCREEN Negative (Negative)
[2024-03-01 03:26] LABS: Tricyclic Antidepressants Negative (Negative)
--- NOTE | 2024-03-01 04:13 | W.PC.ACHO ---
Registration Status: Primary Language: Preferred Language: ED Information & Data Chief Complaint Dizzy/Sync 02/29/24 20:53 Triage Note PT reports dizziness, cant 02/29/24 20:24 catch breath, feels like ill pass out. PT states she was called today by her PCP to inform her of a low potassium level. PT states this is not the first time this has happened (4 times over 4 months) Medical / Surgical History (Last Reviewed 03/01/24 @ 03:23 by Phil Valencia) Pancreatic pseudocyst Pancreatic mass Anasarca Ganglion cyst of dorsum of left wrist Colitis ADHD Opioid dependence on agonist therapy (Last Reviewed 03/01/24 @ 03:23 by Phil Valencia) S/P cholecystectomy Most Recent Vital Signs Temperature 37.3 C 02/29/24 20:24 Temperature Source Tympanic 02/29/24 20:24 Pulse 88 02/29/24 23:16 Pulse 79 03/01/24 04:00 Respiratory Rate 16 03/01/24 04:00 Respiratory Effort Normal 02/29/24 20:27 Respiratory Depth Normal 02/29/24 20:27 Respiratory Pattern Normal 02/29/24 20:27 Blood Pressure 115/84 02/29/24 23:16 Blood Pressure Mean 94 02/29/24 23:16 Blood Pressure Position Sitting 02/29/24 20:24 Pulse Oximetry 99 03/01/24 04:00 Allergies No Known Allergies Allergy (Unverified 02/05/24 22:03) Active Medications Generic Name Dose Route Start Last Admin Trade Name Freq PRN Reason Stop Dose Admin Potassium Chloride 20 meq in 100 mls @ 50 mls/hr 03/01/24 02:00 03/01/24 02:47 IVINF 03/01/24 05:59 50 mls/hr Q2H DIMAS Administration IV IV Catheter Type [Right Saline Lock Antecubital] IV Catheter Gauge [Right 18 Antecubital] Diet Orders Category Date Time Status Regular/Normal [DIET] Nutrition 03/01/24 Breakfast Active Diagnostics 03/01/24 03/01/24 03/01/24 Range/Units 05:35 03:41 00:55 WBC Pending (4.4-10.8) 10^3/uL RBC Pending (3.93-5.22) 10^6/uL Hgb Pending (11.2-15.7) g/dL Hct Pending (36.0-46.0) % MCV Pending (80-95) fL MCH Pending (27.0-33.0) pg MCHC Pending (32.0-36.0) % RDW Pending (11.7-14.6) % Plt Count Pending (130-400) 10^3/uL MPV Pending (8.0-11.0) fL Immature Gran % % Neutrophils % % Lymphocytes % % Monocytes % % Eosinophils % % Basophils % % Nucleated RBC % (0.0-0.3) % Absolute Neutrophils (1.2-6.7) 10^3/uL Absolute Lymphocytes (1.2-3.4) 10^3/uL Absolute Monocytes (0.1-0.8) 10^3/uL Absolute Eosinophils (0.0-0.7) 10^3/uL Absolute Basophils (0.0-0.2) 10^3/uL PT Pending INR Pending Sodium Pending (136-145) mmol/L Potassium Pending (3.5-5.1) mmol/L Chloride Pending (98-107) mmol/L Carbon Dioxide Pending (21.0-32.0) mmol/L Anion Gap Pending (3-11) mmol/L BUN Pending (7-18) mg/dL Creatinine Pending (0.55-1.02) mg/dL Est GFR (CKD-EPI 2020) Pending (mL/min/1.73m2) Glucose Pending (74-106) mg/dL Calcium Pending (8.5-10.1) mg/dL Magnesium Pending (1.8-2.4) mg/dL Total Bilirubin (0.2-1.0) mg/dL AST (15-37) U/L ALT (14-59) U/L Alkaline Phosphatase (46-116) U/L Troponin I < 50 (< or =60) ng/L Total Protein (6.4-8.2) g/dL Albumin (3.4-5.0) g/dL TSH (0.36-3.74) uIU/mL Urine Color (Yellow) Urine Clarity (Clear) Urine pH (5-8) Ur Specific [place] (1.005-1.025) Urine Protein (Neg-Trace) mg/dL Urine Ketones (Negative) mg/dL Urine Blood (Negative) Urine Nitrite (Negative) Urine Bilirubin (Negative) Urine Urobilinogen (Up to 0.2) mg/dL Ur Leukocyte Esterase (Negative) Urine RBC (0-2) HPF Urine WBC (0-5) HPF Ur Epithelial Cells (Negative) HPF Urine Crystals (Negative) HPF Urine Bacteria (Negative) HPF Urine Mucus (Negative) Ur Culture Indicated? Ur Random Potassium mmol/L Urine Glucose (Negative) mg/dL Urine Opiates Screen (Negative) Urine Methadone Screen (Negative) Ur Barbiturates Screen (Negative) Ur Tricyclics Screen (Negative) Ur Amphetamines Screen (Negative) U Benzodiazepines Scrn (Negative) Urine Cocaine Screen (Negative) Ur THC Screen (Negative) COVID-19 Source Pending SARS-CoV-2 (PCR) Pending Influenza Type A (PCR) Pending Influenza Type B (PCR) Pending RSV (PCR) Pending 02/29/24 02/29/24 02/29/24 Range/Units 21:55 20:40 00:55 WBC 11.17 H (4.4-10.8) 10^3/uL RBC 3.01 L (3.93-5.22) 10^6/uL Hgb 9.8 L (11.2-15.7) g/dL Hct 27.3 L (36.0-46.0) % MCV 91 (80-95) fL MCH 32.6 (27.0-33.0) pg MCHC 35.9 (32.0-36.0) % RDW 12.8 (11.7-14.6) % Plt Count 357 (130-400) 10^3/uL MPV 9.5 (8.0-11.0) fL Immature Gran % 0.5 % Neutrophils % 61.4 % Lymphocytes % 24.1 % Monocytes % 8.4 % Eosinophils % 4.9 % Basophils % 0.7 % Nucleated RBC % 0.0 (0.0-0.3) % Absolute Neutrophils 6.86 H (1.2-6.7) 10^3/uL Absolute Lymphocytes 2.69 (1.2-3.4) 10^3/uL Absolute Monocytes 0.94 H (0.1-0.8) 10^3/uL Absolute Eosinophils 0.55 (0.0-0.7) 10^3/uL Absolute Basophils 0.08 (0.0-0.2) 10^3/uL PT INR Sodium 139 141 (136-145) mmol/L Potassium 1.8 L* 2.4 L* (3.5-5.1) mmol/L Chloride 104 108 H (98-107) mmol/L Carbon Dioxide 21.1 24.6 (21.0-32.0) mmol/L Anion Gap 13.9 H 8.4 (3-11) mmol/L BUN 1 L 0 L (7-18) mg/dL Creatinine 0.8 0.7 (0.55-1.02) mg/dL Est GFR (CKD-EPI 2020) 94.28 110.67 (mL/min/1.73m2) Glucose 188 H 127 H (74-106) mg/dL Calcium 8.2 L 7.9 L (8.5-10.1) mg/dL Magnesium 1.6 L 2.2 (1.8-2.4) mg/dL Total Bilirubin 0.66 (0.2-1.0) mg/dL AST 67 H (15-37) U/L ALT 60 H (14-59) U/L Alkaline Phosphatase 295 H (46-116) U/L Troponin I < 50 (< or =60) ng/L Total Protein 5.6 L (6.4-8.2) g/dL Albumin 1.6 L (3.4-5.0) g/dL TSH 3.53 (0.36-3.74) uIU/mL Urine Color Yellow (Yellow) Urine Clarity Clear (Clear) Urine pH 6.5 (5-8) Ur Specific [place] 1.010 (1.005-1.025) Urine Protein Negative (Neg-Trace) mg/dL Urine Ketones Negative (Negative) mg/dL Urine Blood Negative (Negative) Urine Nitrite Negative (Negative) Urine Bilirubin Negative (Negative) Urine Urobilinogen 0.2 (Up to 0.2) mg/dL Ur Leukocyte Esterase Trace H (Negative) Urine RBC Negative (0-2) HPF Urine WBC 0-2 (0-5) HPF Ur Epithelial Cells Few (Negative) HPF Urine Crystals Negative (Negative) HPF Urine Bacteria Moderate (Negative) HPF Urine Mucus Negative (Negative) Ur Culture Indicated? No Ur Random Potassium 3.3 mmol/L Urine Glucose Negative (Negative) mg/dL Urine Opiates Screen Negative (Negative) Urine Methadone Screen Negative (Negative) Ur Barbiturates Screen Negative (Negative) Ur Tricyclics Screen Negative (Negative) Ur Amphetamines Screen Positive A (Negative) U Benzodiazepines Scrn Negative (Negative) Urine Cocaine Screen Negative (Negative) Ur THC Screen Positive A (Negative) COVID-19 Source SARS-CoV-2 (PCR) Influenza Type A (PCR) Influenza Type B (PCR) RSV (PCR) Intake and Output - 24 Hour Total 02/29/24 20:17 thru 03/01/24 02:07 Intake Total 220.833 Balance 220.833 Weight 58.967 kg Intake: IV 220.833 Falls Risk Assessment History of Falls No History 02/29/24 20:27 Contributing Factors No Factors 02/29/24 20:27 Ambulatory Aids Independent 02/29/24 20:27 Tubes/Lines None 02/29/24 20:27 Gait Evaluation No gait disturbance 02/29/24 20:27 Cognition No cognitive impairment 02/29/24 20:27 Fall Total Score 0 02/29/24 20:27 Level of Risk Standard/Low Risk 02/29/24 20:27 Problems (Last Reviewed 03/01/24 @ 03:23 by Phil Valencia) COPD (chronic obstructive pulmonary disease) (Chronic) Continuous tobacco abuse (Chronic) Alcohol abuse (Chronic) Hypokalemia (Acute) Diarrhea (Chronic) Hypomagnesemia (Acute) Opioid use disorder in remission (Chronic) v v v v v v v v v Sending and/or Receiving Nurses: Please use comment section below to note any information pertinent to the patient hand-off not included above. Information / Comments: Pt has hx of chronic hypokalemia. K+ upon arrival was1.8,now up to 2.4 with some repleation. VSS, A&Ox4, walks independently. Pt has a 18G in RAC. Report received from: Mehdi Jiang RN
[2024-03-01 04:30] LABS: COVID-19 PCR Negative (Negative); Influenza A PCR Negative (Negative); Influenza B PCR Negative (Negative); RSV PCR Negative (Negative)
[2024-03-01 05:08] LABS: Source Nasopharynx
[2024-03-01] MEDS: Potassium Chloride 20 MEQ TABCR 40 MEQ PO ×4 (05:45→21:36)
[2024-03-01 06:39] LABS: HCT 25.9 % (36.0-46.0); HGB 9.1 g/dL (11.2-15.7); MCH 32.7 pg (27.0-33.0); MCHC 35.1 % (32.0-36.0); MCV 93 fL (80-95); MPV 10.9 fL (8.0-11.0); Platelet Count 257 10^3/uL (130-400); RBC 2.78 10^6/uL (3.93-5.22); RDW 13.4 % (11.7-14.6); RDW-SD 45.6 fL; WBC 10.01 10^3/uL (4.4-10.8)
[2024-03-01 06:54] LABS: BUN 1 mg/dL (7-18); CREATININE 0.7 mg/dL (0.55-1.02); Calcium 7.2 mg/dL (8.5-10.1); Chloride 109 mmol/L (98-107); Estimated GFR 110.67 (mL/min/1.73m2); Glucose 159 mg/dL (74-106); Magnesium 1.9 mg/dL (1.8-2.4); Sodium 140 mmol/L (136-145)
[2024-03-01 07:03] LABS: Potassium 2.5 mmol/L (3.5-5.1)
[2024-03-01] MEDS: Amphet Asp/Amphet/D-Amphet 10 MG TAB 30 MG PO ×2 (08:50→12:39)
[2024-03-01] MEDS: Nicotine 14 MG/24 HR PATCH TD (08:51)
[2024-03-01] MEDS: Normal Saline Flush 10 ML SYR IVP ×3 (08:52→21:39)
[2024-03-01] MEDS: Spironolactone 50 MG TAB 100 MG PO ×2 (09:01→21:36)
--- NOTE | 2024-03-01 09:07 | PDOC.CMIN ---
Date of service: 03/01/24 Time of Service: 09:07 Care Management Initial Assmt Initial Assessment Reason for Hospitalization: Hypomagnesemia, Hypoalbuminemia, Hypokalemia Functional Status/Living Situation Patient Presentation: Patient is on precautions, CM spoke with patient via phone. Town of Residence: [place] Resides with: Other (Celso Mar) Significant Other/Family: Local (None) Natural Supports: Paddy Mar, no other family or supports Employment Status: Disabled (SSI) Instrumental Activities of Daily Living (ADLs): Independent Medications Medication Management: No Issues/Barriers identified Physical Functioning/Mobility Assistive Device: None Advance Directives Advance Directives: Do you have an Advance Directive: N 02/25/22 13:04 AD On File at [facility]: N 02/25/22 13:04 Date Asked 02/28/24 02/28/24 16:40 AD Date Reviewed COLST On File at [facility] No 10/29/23 19:12 COLST Date Scanned Code Status Resuscitation Status Full Code Insurance Coverage/Financial Issues Insurance: [employer] [facility] Financial Issues: Denies concerns Care Team Visit Care Team Role Provider Type Georgina Leyva Primary Care Provider NURSE PRACTITIONER Shruthi Beatty MD Emergency Provider [facility] STAFF PHYSICIAN Phil Valencia Admit Provider [facility] STAFF PHYSICIAN Attending Provider Discharge Potential Discharge Needs: PCP F/U Appt Anticipated Barriers to Discharge: None Identified Patient/Family Education Needs: Review discharge instructions, discuss Ask Me Three Transportation: Private vehicle Plan: Dolly is beinging closely monitored and treated for Hypomagnesemia, Hypoalbuminemia, Hypokalemia. Here for IV repletion and follow-up labs. Anticipate, pt will discharge home via private vehicle with her paddy when medically ready per provider. Dolly will follow up with community providers and discharge plan of care as instructed. Dolly is connected with [facility] and has take home suboxone. Last dose letter will be provided, if needed. No services are anticipated at this time. CM will follow. PFSH All Active Problems (Updated 03/01/24 @ 04:02 by WANDY ANAYA) COPD (chronic obstructive pulmonary disease) (Chronic) Continuous tobacco abuse (Chronic) Alcohol abuse (Chronic) Hypokalemia (Acute) Diarrhea (Chronic) Normocytic normochromic anemia (Acute) Hypokalemia (Acute) Hypoalbuminemia (Acute) Hypomagnesemia (Acute) Bilateral edema of lower extremity (Acute) Opioid use disorder in remission (Chronic) Hypocalcemia (Chronic) Insomnia (Acute) Chronic pancreatitis (Chronic) Medical History Pancreatic pseudocyst Pancreatic mass Anasarca Ganglion cyst of dorsum of left wrist Colitis ADHD Opioid dependence on agonist therapy Surgical History S/P cholecystectomy and removal of two pancreatic pseudocysts Social History Smoking/Tobacco Use Status: Current every day Tobacco Type: cigarettes Smoking packs per day: 0.5 Smoking cigarettes per day: 10.0 Years smoked: 27 Smoking pack-years: 13.50 Quit status: considering quitting Counseling given: provider counseling and support medications Smoking risk assessment performed?: Yes Alcohol Intake: current Alcohol Intake frequency: a few times a month Alcohol type: beer Counseling provided: provider counseling Drug use: Occasionally Substance use type: marijuana Housing: apartment Do you feel safe at home: Yes Do you feel safe in your relationship?: Yes Readmission Within the Past 30 Days Yes or No: No Date of First Admission Date of 1st Admission: 02/06/24 Date of this Admission Date of Admission: 03/01/24 This admission was: Through ED SDOH(Care Management) Screening Will the Patient Participate in the Screening?: Unable to obtain
[2024-03-01 09:38] LABS: Anion Gap 8.4 mmol/L (3-11); CO2 24.6 mmol/L (21.0-32.0); CREATININE 0.7 mg/dL (0.55-1.02); Calcium 7.9 mg/dL (8.5-10.1); Chloride 108 mmol/L (98-107); Estimated GFR 110.67 (mL/min/1.73m2); Glucose 127 mg/dL (74-106); Magnesium 2.2 mg/dL (1.8-2.4); Sodium 141 mmol/L (136-145); TSH (W/Ref FT4) 3.53 uIU/mL (0.36-3.74)
[2024-03-01 09:39] LABS: Potassium 2.4 mmol/L (3.5-5.1)
[2024-03-01 09:40] LABS: BUN < 1 mg/dL (7-18)
--- NOTE | 2024-03-01 09:52 | PGE_ITS ---
Date of Service Date of service: 03/01/24 Time of Service: 16:29 Assessment and Plan Assessment and plan (1) Hypokalemia: Start date: 03/01/24 Status: Acute Assessment and plan: This is a 43-year-old lady with chronic hypokalemia on spironolactone for anasarca and some peripheral edema on a medical dose of potassium daily. Continues to drink alcohol though less then previously. Suboxone for substance abuse disorder. Her diarrhea is most likely the reason for loss of potassium and presently she has QT prolongation which cardiology recommended monitoring while repleting potassium as an inpatient. - On tele: QT 0.45 and QTc 0.53 Continue potassium repletion Increase her oral daily dose daily BMP this PM (2) Hypomagnesemia: Start date: 03/01/24 Status: Acute Assessment and plan: IV repletion and follow-up labs. Consider oral magnesium -Magnesium gluconate daily Gastroenterology referral on d/c; has seen GI for chronic pancreatitis in the past mag level this PM (3) Diarrhea: Status: Chronic Assessment and plan: Hep C positive but no RNA HCV detected in 01/2024, pending this admit Symptomatic treatment Follow-up GI; know patient for gastroenterology consult in the past for chronic pancreatitis. Qualifiers: Diarrhea type: functional diarrhea Qualified Code(s): K59.1 - Functional diarrhea (4) Opioid use disorder in remission: Status: Chronic Assessment and plan: Continue subcutaneous Suboxone monthly. Urine drug screen positive for amphetamines and THC . (5) ADHD: Assessment and plan: Continue outpatient medical therapy. Qualifiers: Attention deficit-hyperactivity disorder type: combined inattentive- hyperactive Qualified Code(s): F90.2 - Attention-deficit hyperactivity disorder, combined type (6) Alcohol abuse: Status: Chronic Assessment and plan: Advised complete cessation. Patient does have continued electrolyte abnormalities with deficiencies and elevated liver function test. (7) Continuous tobacco abuse: Status: Chronic Assessment and plan: Advised cessation and NRT while hospitalized. (8) COPD (chronic obstructive pulmonary disease): Status: Chronic Assessment and plan: Advise tobacco cessation currently. Nebulizer treatments while hospitalized. discussed with Dr. Amaya Qualifiers: COPD type: chronic bronchitis Chronic bronchitis type: mucopurulent Qualified Code(s): J41.1 - Mucopurulent chronic bronchitis Objective Last Vital Signs Temp 36.8 C 03/01/24 07:52 Pulse 77 03/01/24 07:52 Resp 18 03/01/24 07:52 BP 130/86 03/01/24 07:52 Pulse Ox 99 03/01/24 07:52 Laboratory Results - last 24 hr 02/29/24 02/29/24 02/29/24 00:55 20:40 21:55 WBC 11.17 H RBC 3.01 L Hgb 9.8 L Hct 27.3 L MCV 91 MCH 32.6 MCHC 35.9 RDW 12.8 Plt Count 357 MPV 9.5 Immature Gran % 0.5 Neutrophils % 61.4 Lymphocytes % 24.1 Monocytes % 8.4 Eosinophils % 4.9 Basophils % 0.7 Nucleated RBC % 0.0 Absolute Neutrophils 6.86 H Absolute Lymphocytes 2.69 Absolute Monocytes 0.94 H Absolute Eosinophils 0.55 Absolute Basophils 0.08 Sodium Cancelled 139 Potassium Cancelled 1.8 L* Chloride Cancelled 104 Carbon Dioxide Cancelled 21.1 Anion Gap Cancelled 13.9 H BUN Cancelled 1 L Creatinine Cancelled 0.8 Est GFR (CKD-EPI 2020) Cancelled 94.28 Glucose Cancelled 188 H Calcium Cancelled 8.2 L Magnesium Cancelled 1.6 L Total Bilirubin 0.66 AST 67 H ALT 60 H Alkaline Phosphatase 295 H Troponin I < 50 Total Protein 5.6 L Albumin 1.6 L TSH Cancelled Urine Color Yellow Urine Clarity Clear Urine pH 6.5 Ur Specific [place] 1.010 Urine Protein Negative Urine Ketones Negative Urine Blood Negative Urine Nitrite Negative Urine Bilirubin Negative Urine Urobilinogen 0.2 Ur Leukocyte Esterase Trace H Urine RBC Negative Urine WBC 0-2 Ur Epithelial Cells Few Urine Crystals Negative Urine Bacteria Moderate Urine Mucus Negative Ur Culture Indicated? No Ur Random Potassium 3.3 Urine Glucose Negative Urine Opiates Screen Negative Urine Methadone Screen Negative Ur Barbiturates Screen Negative Ur Tricyclics Screen Negative Ur Amphetamines Screen Positive A U Benzodiazepines Scrn Negative Urine Cocaine Screen Negative Ur THC Screen Positive A COVID-19 Source SARS-CoV-2 (PCR) Influenza Type A (PCR) Influenza Type B (PCR) RSV (PCR) 03/01/24 03/01/24 03/01/24 00:55 03:41 06:06 WBC 10.01 RBC 2.78 L Hgb 9.1 L Hct 25.9 L MCV 93 MCH 32.7 MCHC 35.1 RDW 13.4 Plt Count 257 MPV 10.9 Immature Gran % Neutrophils % Lymphocytes % Monocytes % Eosinophils % Basophils % Nucleated RBC % Absolute Neutrophils Absolute Lymphocytes Absolute Monocytes Absolute Eosinophils Absolute Basophils Sodium 141 140 Potassium 2.4 L* 2.5 L* Chloride 108 H 109 H Carbon Dioxide 24.6 19.0 L Anion Gap 8.4 12.0 H BUN < 1 L 1 L Creatinine 0.7 0.7 Est GFR (CKD-EPI 2020) 110.67 110.67 Glucose 127 H 159 H Calcium 7.9 L 7.2 L Magnesium 2.2 1.9 Total Bilirubin AST ALT Alkaline Phosphatase Troponin I < 50 Total Protein Albumin TSH 3.53 Urine Color Urine Clarity Urine pH Ur Specific [place] Urine Protein Urine Ketones Urine Blood Urine Nitrite Urine Bilirubin Urine Urobilinogen Ur Leukocyte Esterase Urine RBC Urine WBC Ur Epithelial Cells Urine Crystals Urine Bacteria Urine Mucus Ur Culture Indicated? Ur Random Potassium Urine Glucose Urine Opiates Screen Urine Methadone Screen Ur Barbiturates Screen Ur Tricyclics Screen Ur Amphetamines Screen U Benzodiazepines Scrn Urine Cocaine Screen Ur THC Screen COVID-19 Source Nasopharynx SARS-CoV-2 (PCR) Negative Influenza Type A (PCR) Negative Influenza Type B (PCR) Negative RSV (PCR) Negative PAWSS Have you Been Recently Intoxicated or Drunk Within the Last 30 days?: No Have you Ever Experienced Previous Episodes of Alcohol Withdrawal?: No Have you ever Experienced Withdrawal Seizures?: No Have you ever Experienced Delirium Tremens(DT)s?: No Have you ever undergone Alcohol Rehabilitation Treatment (i.e, inpt ot outpatient treatment programs)?: No Have you ever Experienced Blackouts?: No Have you ever Combined Alcohol with other Downers within the last 90 days?: No Have you ever Combined Alcohol with any other Substance of Abuse during the last 90 days?: No Positive Blood Alcohol level on Presentation? [PCS.BAL]: No Evidence of Increased Autonomic Activity (i.e. HR>120, tremor, sweating, agitation, nausea)?: No Result: 0 Time Spent with Patient Time Spent with Patient: >50 minutes Time was spent: preparing to see the patient(eg.review tests), obtaining and/or reviewing separately otained hiistory, ordering medications,tests, procedures, referring, communicating with other health geriatric care manager, indepentently interpreting results, counseling the patient and care coordination
[2024-03-01 10:34] LABS: Lab Add On Test Done
[2024-03-01 10:45] LABS: ETHANOL BLOOD 59.1 mg/dL (<10)
[2024-03-01 11:11] LABS: INR 1.2 (0.9-1.1); Prothrombin Time 12.1 sec (9.1-11.1)
[2024-03-01 11:19] LABS: Potassium 2.7 mmol/L (3.5-5.1)
[2024-03-01] MEDS: Albuterol/Ipratropium 3 ML UPD VIAL UPD (11:21)
[2024-03-01] MEDS: Enoxaparin 40 MG/0.4 ML SYR SC (11:48)
[2024-03-01 12:48] LABS: C Diff PCR Negative (Negative)
[2024-03-01 16:11] LABS: Anion Gap 6.9 mmol/L (3-11); BUN < 1 mg/dL (7-18); CO2 24.1 mmol/L (21.0-32.0); CREATININE 0.7 mg/dL (0.55-1.02); Calcium 7.2 mg/dL (8.5-10.1); Chloride 111 mmol/L (98-107); Estimated GFR 110.67 (mL/min/1.73m2); Glucose 131 mg/dL (74-106); Sodium 142 mmol/L (136-145)
[2024-03-01 16:15] LABS: Potassium 2.7 mmol/L (3.5-5.1)
[2024-03-01 16:21] LABS: Magnesium 1.8 mg/dL (1.8-2.4)
[2024-03-01] MEDS: Ketorolac 15 MG/ML VIAL IVP ×2 (16:55→23:09)
[2024-03-01] MEDS: POTASSIUM CHLORIDE 20 MEQ/100 ML BAG 25 MEQ IVINF ×2 (16:55→21:36)
[2024-03-01 18:07] LABS: Lipase 41 U/L (16-77)
[2024-03-01] MEDS: Acetaminophen 325 MG TAB 1000 MG PO (18:18)
[2024-03-01] MEDS: POTASSIUM CHLORIDE/0.9% NACL 1,000 ML 75 MEQ IV (18:30)
[2024-03-01] MEDS: FAMOTIDINE 20 MG/50 ML BAG 200 MG IVPB (19:28)
[2024-03-01] MEDS: traZODone 50 MG TAB PO (21:36)
[2024-03-02 02:00] LABS: Anion Gap 7.5 mmol/L (3-11); BUN 1 mg/dL (7-18); CO2 21.5 mmol/L (21.0-32.0); CREATININE 0.6 mg/dL (0.55-1.02); Calcium 7.1 mg/dL (8.5-10.1); Chloride 112 mmol/L (98-107); Estimated GFR 114.86 (mL/min/1.73m2); Glucose 107 mg/dL (74-106); Potassium 3.3 mmol/L (3.5-5.1); Sodium 141 mmol/L (136-145)
[2024-03-02] MEDS: Acetaminophen 500 MG TAB 1000 MG PO ×3 (02:06→17:15)
[2024-03-02 02:54] VITALS: BP 129/86; PULSE 84; RESP 20; TEMP 36.2; O2SAT 99
[2024-03-02] MEDS: Ketorolac 15 MG/ML VIAL IVP ×4 (04:54→21:36)
[2024-03-02 07:28] LABS: ALT 40 U/L (14-59); AST 47 U/L (15-37); Albumin 1.2 g/dL (3.4-5.0); Alkaline Phosphatase 210 U/L (46-116); Bilirubin, Direct 0.3 mg/dL (0.0-0.2); Bilirubin, Total 0.54 mg/dL (0.2-1.0); Total Protein 4.3 g/dL (6.4-8.2)
[2024-03-02] MEDS: Nicotine 14 MG/24 HR PATCH TD (07:34)
[2024-03-02] MEDS: Potassium Chloride 20 MEQ TABCR 40 MEQ PO ×3 (07:36→20:00)
[2024-03-02] MEDS: FAMOTIDINE 20 MG/50 ML BAG 200 MG IVPB (07:37)
[2024-03-02] MEDS: POTASSIUM CHLORIDE/0.9% NACL 1,000 ML 75 MEQ IV (07:38)
[2024-03-02] MEDS: Amphet Asp/Amphet/D-Amphet 10 MG TAB 30 MG PO ×2 (07:39→12:01)
[2024-03-02] MEDS: Spironolactone 50 MG TAB 100 MG PO ×2 (07:39→20:00)
[2024-03-02] MEDS: Normal Saline Flush 10 ML SYR IVP ×2 (07:40→10:36)
[2024-03-02] MEDS: Magnesium Gluconate 500 MG TAB PO (07:42)
[2024-03-02 07:51] VITALS: BP 116/80; PULSE 87; RESP 17; TEMP 36.4; O2SAT 100
[2024-03-02 08:53] LABS: Lab Add On Test DONE
[2024-03-02 09:00] LABS: Magnesium 1.7 mg/dL (1.8-2.4)
[2024-03-02] MEDS: Enoxaparin 40 MG/0.4 ML SYR SC (10:07)
[2024-03-02] MEDS: POTASSIUM CHLORIDE 20 MEQ/100 ML BAG 50 MEQ IVINF ×2 (10:14→13:47)
--- NOTE | 2024-03-02 10:41 | PGE_ITS ---
<Statement entered by Josué Oseguera - 03/02/24 15:08> Agree with Ms. Loya, though negative HCV RNA is c/w viral clearance, so there is no indication for treatment acutely or chronically. This is no longer an active medical issue. Date of Service Date of service: 03/02/24 Time of Service: 12:41 Assessment and Plan Assessment and plan (1) Hypokalemia: Start date: 03/01/24 Status: Acute Assessment and plan: This is a 43-year-old lady with chronic hypokalemia on spironolactone for anasarca and some peripheral edema on a medical dose of potassium daily. Continues to drink alcohol though less then previously; does not feel it is a problem . Suboxone at home but change to brixadi inj. for substance abuse disorder. -Will give suboxon low dose her as pt c/o of pain Less diarrhea today: most likely the reason for loss of potassium QT prolongation which cardiology recommended monitoring while repleting potassium as an inpatient. - On tele: QT 0.44 and QTc 0.52- improving - will continue to monitor K 3.3-Continue potassium repletion Increase her oral daily dose daily BMP in AM (2) Hypomagnesemia: Start date: 03/01/24 Status: Acute Assessment and plan: IV and oral repletion -Magnesium gluconate daily to continue at home Gastroenterology referral on d/c; has seen GI for chronic pancreatitis in the past mag level in AM (3) Diarrhea: Status: Chronic Assessment and plan: Hep C positive but no RNA HCV detected again this stay; stating that she was unaware- to discuss with PCP during f/u; not acute treatment at this time C-diff negative and stool pathogen PCR negative Symptomatic treatment : mentioned that immodium did not help - florentino patel Follow-up GI; know patient for gastroenterology consult in the past for chronic pancreatitis. Qualifiers: Diarrhea type: functional diarrhea Qualified Code(s): K59.1 - Functional diarrhea (4) Opioid use disorder in remission: Status: Chronic Assessment and plan: Continue subcutaneous Suboxone monthly. Urine drug screen positive for ampheta mines and THC . additional SL dose given inpatient (5) ADHD: Assessment and plan: On outpatient medical therapy. Qualifiers: Attention deficit-hyperactivity disorder type: combined inattentive- hyperactive Qualified Code(s): F90.2 - Attention-deficit hyperactivity disorder, combined type (6) Alcohol abuse: Status: Chronic Assessment and plan: Advised complete cessation re: electrolyte abnormalities with deficiencies and elevated liver function test. Still drinks at home and does not feel addicted and does not need treatment (7) Continuous tobacco abuse: Status: Chronic Assessment and plan: Continue NRT while hospitalized. (8) COPD (chronic obstructive pulmonary disease): Status: Chronic Assessment and plan: Continue nebulizer treatments while hospitalized Advised tobacco cessation on admit discussed with Dr. Oseguera Qualifiers: COPD type: chronic bronchitis Chronic bronchitis type: mucopurulent Qualified Code(s): J41.1 - Mucopurulent chronic bronchitis Subjective Subjective Patient reports: feels better, pain is less, tolerating liquids well, tolerating a regular diet, voiding w/o difficulty, diarrhea and afebrile; denies blood in stool, nausea, vomiting or shortness of breath Exam Narrative Exam Narrative: Constitutional Still drinks at home and does not feel addicted and does not need treatment.Still c/o of epigastric pain but appears less uncomfortable than prior Neuro:alert and oriented to self, person, place time and situation Resp: Clear lung bilaterally Cardio: regular rhythm, S1, S2, no murmur GI: Abdomen is not distended, soft and non tender, bowel sounds are present Integumentary: No skin lesions or rash Extremities: strength 5/5 to bilateral lower and upper extremities Psych: RASS 0, congruent mood and normal affect. Objective Last Vital Signs Temp 36.4 C L 03/02/24 07:51 Pulse 87 03/02/24 07:51 Resp 17 03/02/24 07:51 BP 116/80 03/02/24 07:51 Pulse Ox 100 03/02/24 07:51 Laboratory Results - last 24 hr 02/29/24 03/01/24 03/01/24 20:40 08:28 10:45 PT 12.1 H INR 1.2 H Sodium 139 Potassium 1.8 L* Chloride 104 Carbon Dioxide 21.1 Anion Gap 13.9 H BUN 1 L Creatinine 0.8 Est GFR (CKD-EPI 2020) 94.28 Glucose 188 H Calcium 8.2 L Magnesium 1.6 L Total Bilirubin 0.66 Conjugated Bilirubin AST 67 H ALT 60 H Alkaline Phosphatase 295 H Troponin I < 50 Total Protein 5.6 L Albumin 1.6 L Lipase Stl C.difficile Tox PCR Negative Ethyl Alcohol 59.1 H Add-On Test Request 03/01/24 03/01/24 03/01/24 10:55 15:55 17:52 PT INR Sodium 142 Potassium 2.7 L* 2.7 L* Chloride 111 H Carbon Dioxide 24.1 Anion Gap 6.9 BUN < 1 L Creatinine 0.7 Est GFR (CKD-EPI 2020) 110.67 Glucose 131 H Calcium 7.2 L Magnesium 1.8 Total Bilirubin Conjugated Bilirubin AST ALT Alkaline Phosphatase Troponin I Total Protein Albumin Lipase 41 Stl C.difficile Tox PCR Ethyl Alcohol Add-On Test Request 03/01/24 03/02/24 22:00 01:40 PT INR Sodium Cancelled 141 Potassium Cancelled 3.3 L Chloride Cancelled 112 H Carbon Dioxide Cancelled 21.5 Anion Gap Cancelled 7.5 BUN Cancelled 1 L Creatinine Cancelled 0.6 Est GFR (CKD-EPI 2020) Cancelled 114.86 Glucose Cancelled 107 H Calcium Cancelled 7.1 L Magnesium 1.7 L Total Bilirubin 0.54 Conjugated Bilirubin 0.3 H AST 47 H ALT 40 Alkaline Phosphatase 210 H Troponin I Total Protein 4.3 L Albumin 1.2 L Lipase Stl C.difficile Tox PCR Ethyl Alcohol Add-On Test Request DONE PAWSS Have you Been Recently Intoxicated or Drunk Within the Last 30 days?: No Have you Ever Experienced Previous Episodes of Alcohol Withdrawal?: No Have you ever Experienced Withdrawal Seizures?: No Have you ever Experienced Delirium Tremens(DT)s?: No Have you ever undergone Alcohol Rehabilitation Treatment (i.e, inpt ot outpatient treatment programs)?: No Have you ever Experienced Blackouts?: No Have you ever Combined Alcohol with other Downers within the last 90 days?: No Have you ever Combined Alcohol with any other Substance of Abuse during the last 90 days?: No Positive Blood Alcohol level on Presentation? [PCS.BAL]: No Evidence of Increased Autonomic Activity (i.e. HR>120, tremor, sweating, agitation, nausea)?: No Result: 0 Time Spent with Patient Time Spent with Patient: >50 minutes Time was spent: preparing to see the patient(eg.review tests), obtaining and/or reviewing separately otained hiistory, ordering medications,tests, procedures, referring, communicating with other health child day care teacher, indepentently interpreting results, counseling the patient and care coordination
[2024-03-02 11:21] VITALS: BP 132/90; PULSE 82; RESP 17; TEMP 36.4; O2SAT 98
[2024-03-02] MEDS: Buprenorphine/Naloxone 8 mg/2 mg FILM 1 EACH SL (12:01)
--- NOTE | 2024-03-02 12:40 | PDOC.CMPRO ---
Date of service: 03/02/24 Time of Service: 12:40 Care Management Progress Note Progress Note Text Progress Note Text: Dolly was sitting up in bed when CM met with her. She was pleasant and engaged well in conversation. She reported that per provider, her labs are improving, although she expressed frustration, stating that she generally improves while at the hospital, but then doesn't manage well at home. CM noted that the provider plans to order a nutrition consult to discuss increasing protein intake, and she is open to this consult, stating that she will try anything to remain stable in the community. She reported that she is looking forward to returning home to her six year old son, but expressed gratitude for the care she is receiving while inpatient. Per provider, she may be ready for discharge tomorrow, if she continues to improve. CM will continue to follow. Discharge Potential Discharge Needs: PCP F/U Appt Anticipated Barriers to Discharge: None Identified Patient/Family Education Needs: Review discharge instructions, discuss Ask Me Three Transportation: Private vehicle Plan: Anticipate Dolly will return home once medically cleared. She will be driven home via private vehicle by family, and will follow up with her PCP and discharge plan of care. CM will continue to follow. SDOH(Care Management) Screening Will the Patient Participate in the Screening?: Unable to obtain
--- NOTE | 2024-03-02 14:08 | PHA.REVIEW2 ---
Pharmacy Admission Review Admission Clinical Review Admission Pharmacy Review: Hypokalemia (Acute) Hypomagnesemia (Acute) No Known Allergies Allergy (Unverified 02/05/24 22:03) Resuscitation Status Full Code Height 5 ft 2 in Weight 43 kg Comments Comments/Follow Ups: Watch VS, K+, mag, labs and for med changes (avoid QT prolonging meds) Pharmacy Admission Review Renal Dosing Renal Dosing: BUN 1 mg/dL (7-18) L 03/02/24 01:40 Creatinine 0.6 mg/dL (0.55-1.02) 03/02/24 01:40 Medications needing adjustments: Reviewed (Crcl ~113 mL/min current meds okay) Anticoagulation Anticoagulation: Hgb 9.1 g/dL (11.2-15.7) L 03/01/24 06:06 Hct 25.9 % (36.0-46.0) L 03/01/24 06:06 Plt Count 257 10^3/uL (130-400) 03/01/24 06:06 INR 1.2 (0.9-1.1) H 03/01/24 10:45 Creatinine 0.6 mg/dL (0.55-1.02) 03/02/24 01:40 DVT Prophylaxis: Reviewed Medications: Enoxaparin Opiate Usage Evaluate Pain Scale/Pains Meds: Reviewed Scheduled Bowel Reg ordered if on Opiates?: No (has PRN meds ordered) Relevant Labs Relevant Labs: Sodium 141 mmol/L (136-145) 03/02/24 01:40 Potassium 3.3 mmol/L (3.5-5.1) L 03/02/24 01:40 Chloride 112 mmol/L (98-107) H 03/02/24 01:40 Magnesium 1.7 mg/dL (1.8-2.4) L 03/02/24 01:40 Electrolytes, C-Reactive P, ESR: Reviewed (IV and PO magnesium and potassium ordered) DM Control DM Control: Glucose 107 mg/dL (74-106) H 03/02/24 01:40 DM Control: N/A Cardiac Review Cardiac Review: Troponin I < 50 ng/L (< or =60) 03/01/24 00:55 BP, HR, EF%: Reviewed QTc Review QTc: Reviewed (QTc 612 on admission; has PRN ondansetron ordered but has not used any) IV to PO Switch IV Medications: Intervened (I asked provider if IV famotidine could be changed to PO) Home Meds Home Med List reviewed: Reviewed (buprenorphine (Brixadi)- once monthly injection) Current Meds Current Medication Order Review: Intervened (Adjusted the timing of the acetaminophen per the vice president medical affairs time policy.) Comments Comments/Follow Ups: Watch VS, K+, mag, labs and for med changes (avoid QT prolonging meds)
[2024-03-02 15:48] VITALS: BP 129/79; PULSE 79; RESP 17; TEMP 36.2; O2SAT 99
[2024-03-02] MEDS: MAGNESIUM SULFATE 2 GM/50 ML BAG IVINF (17:51)
--- NOTE | 2024-03-02 17:57 | W.NUTCONSULT ---
Date of service: 03/02/24 Time of Service: 14:50 Nutritional Consult ASSESSMENT: received nutrition consult on pt regarding etoh abuse, hypokalemia/magnesia, diarrhea low albumin and low tot protein visited with pt immediately after dinner and she did not eat - states there was beef gravy on her honey mustart chicken and wouldn't touch it. On inspection she had ordered mashed portatoes (which had the gravy on it) and HM chicken was nect to it. Also decided against eating the ice cream and salad she ordered. Was on her phone trying to place an order with [facility]. Pt has chronic hypokalemia and takes 80mEq at home. Chronic diarrhea suspect of biggest contributor and she states she had 8 episodes this day already. Has been getting high protein ONS on trays and declined to drink these as well as the liquid collagen protein which was ordered. Pt denies significant weiight changes in the last 6 months and weight history supports this. NUTRITIONAL DIAGNOSIS: altered nutrition-related laboratory values (NC-2.2) regarding her low potassium and magnesium, albumin and total protein, related to inconsistent intake, increased micronutrient needs due to chronic use of etoh and tobacco and experiencing chronic diarrhea - as evidenced by diet history interview. INTERVENTION: Offered to take an alternate dinner order and get it to the kitchen - declined Offered some nutrition education on chronic diarrhea - low fiber diet and avoidance of spicy, greasy foods and might want to consider lactose free diet and avoidance of alcohol. LEt her know ONS available if she like and offered outpatient contact for work with managing the above. encouraged protein goal of 80g per day at home coming from a good number of plant sources and lean meats MONITORING AND EVALUATION: will monitor labs/intake/weight Time Spent in Nutritional Counseling and Treatment: 15 min
[2024-03-02 19:18] VITALS: BP 130/88; PULSE 92; RESP 17; TEMP 36.7; O2SAT 100
[2024-03-02] MEDS: traZODone 50 MG TAB PO (20:00)
[2024-03-02] MEDS: Famotidine 20 MG TAB PO (20:00)
[2024-03-02 22:42] VITALS: BP 137/82; PULSE 83; RESP 16; TEMP 36.5; O2SAT 100
[2024-03-03] MEDS: Acetaminophen 500 MG TAB 1000 MG PO ×2 (02:21→09:54)
[2024-03-03] MEDS: Ketorolac 15 MG/ML VIAL IVP ×3 (02:23→11:10)
[2024-03-03 06:46] VITALS: BP 137/80; PULSE 82; RESP 16; TEMP 36.4; O2SAT 100
[2024-03-03 06:47] LABS: Abs Immature Grans 0.03 10^3/uL (0.0-0.06); Absolute Eosinophil Count 0.59 10^3/uL (0.0-0.7); Absolute Lymphocyte Count 1.38 10^3/uL (1.2-3.4); Absolute Monocyte Count 0.66 10^3/uL (0.1-0.8); Absolute Neutrophil Count 5.94 10^3/uL (1.2-6.7); Basophils % 1.1 %; Eosinophils % 6.8 %; HCT 25.5 % (36.0-46.0); HGB 8.2 g/dL (11.2-15.7); Immature Grans % 0.3 %; Lymphocytes % 15.9 %; MCH 31.4 pg (27.0-33.0); MCHC 32.2 % (32.0-36.0); MCV 98 fL (80-95); MPV 10.5 fL (8.0-11.0); Monocytes % 7.6 %; Neutrophils % 68.3 %; Platelet Count 219 10^3/uL (130-400); RBC 2.61 10^6/uL (3.93-5.22); RDW 13.4 % (11.7-14.6); RDW-SD 48.1 fL
[2024-03-03 07:09] LABS: BUN 1 mg/dL (7-18); CREATININE 0.7 mg/dL (0.55-1.02); Calcium 7.5 mg/dL (8.5-10.1); Chloride 112 mmol/L (98-107); Estimated GFR 110.67 (mL/min/1.73m2); Glucose 134 mg/dL (74-106); Magnesium 1.8 mg/dL (1.8-2.4); Potassium 3.9 mmol/L (3.5-5.1); Sodium 140 mmol/L (136-145)
[2024-03-03] MEDS: Nicotine 14 MG/24 HR PATCH TD (08:26)
[2024-03-03] MEDS: Amphet Asp/Amphet/D-Amphet 10 MG TAB 30 MG PO ×2 (08:29→12:26)
[2024-03-03] MEDS: Famotidine 20 MG TAB PO (08:31)
[2024-03-03] MEDS: Magnesium Gluconate 500 MG TAB PO (08:31)
[2024-03-03] MEDS: Spironolactone 50 MG TAB 100 MG PO (08:32)
[2024-03-03] MEDS: Potassium Chloride 20 MEQ TABCR 40 MEQ PO (08:33)
[2024-03-03] MEDS: Normal Saline Flush 10 ML SYR IVP ×2 (08:34→11:09)
[2024-03-03] MEDS: Buprenorphine/Naloxone 8 mg/2 mg FILM 1 EACH SL (08:36)
[2024-03-03] MEDS: Enoxaparin 40 MG/0.4 ML SYR SC (09:56)
--- NOTE | 2024-03-03 11:43 | CMDISCH_ITS ---
Date of service: 03/03/24 Time of Service: 11:43 LACE Index Scoring Tool Questions: Length of Stay (in days): 2 Was the patient admitted via the E.D.?: Yes Comorbidities: Chronic Pulmonary Disease E.D. Visits: 5 Answers: Total Score: 11 Risk of Readmission: High Risk Care Management Discharge Plan Reason for Hospitalization: Acute on chronic hypokalemia, hypomagnesemia Discharge Plan: Dolly will return home today with no new services. She will be driven home via private vehicle by family. She will follow up with her PCP and discharge plan of care. She is happy to be going home. Patient/Family Education Needs: Review discharge instructions and limitations, discussion of self care needs including ask me three. SDOH Health Related Social Needs: Health related social needs details Resume [facility] treatment
--- NOTE | 2024-03-03 12:07 | W.PM.DS.N ---
Date of service: 03/03/24 Time of Service: 17:39 DS: Diagnosis Discharge Diagnosis (1) Hypokalemia: Status: Acute (2) Hypomagnesemia: Status: Acute (3) Diarrhea: Status: Chronic (4) Opioid use disorder in remission: Status: Chronic (5) Alcohol abuse: Status: Chronic (6) Continuous tobacco abuse: Status: Chronic (7) COPD (chronic obstructive pulmonary disease): Status: Chronic Discharge Plan Disposition Patient Disposition: Home Condition: Improving Discharge Details Reason For Visit: Acute on chronic hypokalemia, Hypomagnesemia Admit Date/Time: 03/01/24 03:04 Admit Provider: Phil Valencia Attending Provider: Phil Valencia Primary Care Provider: Georgina Leyva Hospital Course Hospital Course: The patient is a 43-year-old female with a history of chronic opioid abuse, currently in remission on monthly subcutaneous Suboxone, and ongoing alcohol use disorder, though with decreased alcohol consumption since October 2023. She was previously admitted in October 2023 for [facility] with acute alcoholic hepatitis and electrolyte abnormalities. Following that hospitalization, the patient experienced chronic diarrhea, persistent hypokalemia, and difficulty maintaining potassium levels with oral supplements. Additionally, she had hypomagnesemia but was not on magnesium supplements. She had been admitted earlier in February 2020 for similar issues and was placed on a higher dose of potassium supplements and spironolactone, which had been started in October 2023 for the anasarca. During her most recent admission, the patient presented with symptoms of shortness of breath and cough. She is a smoker and uses an inhaler occasionally. The cough was productive of sputum, though she did not report fever or chills. She felt better after the previous hospitalization but was readmitted after outpatient lab results on the day of admission showed critically low potassium levels despite supplementation. In the emergency department, the patient reported feeling unwell with cough and slight sputum production but no fever or change in sputum color. She was started on intravenous potassium and, although initial labs did not indicate a need for magnesium, repeat tests showed low magnesium levels. Consequently, she was administered intravenous magnesium and continued on IV potassium, with plans to increase her oral potassium dosage once her levels reached above 3. Cardiology was consulted due to QT prolongation. They recommended repletion of potassium and monitoring via telemetry. Nephrology was also consulted; they found the creatinine level and spot urine potassium to be normal and did not suspect hyperaldosteronism or nephrogenic causes for the hypokalemia. The patient was admitted for continued monitoring of laboratory values and telemetry, with ongoing repletion of potassium. The patient's potassium and magnesium are within normal limits today. She is discharged to home. A BMP is ordered for three days from now to check electrolytes. Potassium 40 mg BID was continued. Now that she is not having diarrhea, it is better to be cautious. Follow up with PCP next week. Lomotil as needed for diarrhea. Home Meds and New Rx's Prescriptions: New diphenoxylate-atropine [Lomotil] 2.5-0.025 mg tablet 1 tab PO BID PRN (Reason: diarrhea) Qty: 14 0RF Continued trazodone 50 mg tablet 50 mg PO HS Patient Comments: take 1 tablet by mouth at bedtime spironolactone 50 mg tablet 100 mg PO BID dextroamphetamine-amphetamine 30 mg tablet 30 mg PO BID@0800,1200 albuterol sulfate 90 mcg/actuation HFA aerosol inhaler 1 inh INHALATION Q4H PRN Brixadi 64 mg/0.18 mL solution, extended rel syringe 64 mg SUBCUT .monthly potassium chloride 20 mEq tablet extended release 40 meq PO BIDWMEAL Qty: 0 0RF Discharge Instructions Instructions: Hypokalemia, Diphenoxylate and Atropine Additional Instructions: Please have you electrolytes checked in 3 days, an order has been sent to the lab. Follow up with your PCP in one week. Take Lomotil as needed for diarrhea. Alert your PCP if you continue to have diarrhea. Stand Alone Forms: Nursing Discharge Form Referrals: GASTROENTEROLOGY,[facility] – [place] [OTHER] - (A referral has been faxed for you. This is a 43-year-old lady with chronic hypokalemia presently on spironolactone for anasarca and some peripheral edema persisting but not able to keep up with potassium supplementation as an outpatient on a medical dose of potassium daily. She has been hospitalized recently with increase in oral potassium and is not on magnesium though this was low as well. She continues to drink alcohol though less then previously. She is on Suboxone for substance abuse disorder. She states she is actually not using illicit drugs. Her diarrhea is most likely the reason for loss of potassium and presently she has QT prolongation which cardiology recommended monitoring while repleting potassium as an inpatient. Once we replete her potassium and need to increase her oral dose daily and monitor more closely. Magnesium also needs to be supplemented. Spironolactone will be continued which may help with hypokalemia. She is a full code. She has seen gastroenterology in the past for chronic pancreatitis.) Georgina Leyva [Primary Care Provider] - 03/10/24 10:30 am ( BMP in 3d) Activity:: Activity as Tolerated Equipment/Supplies:: No Equipment Needed Diet:: As Tolerated Discharge Orders Discharge Orders: Discharge Order (Routine); Ordered 03/03/24 Ordered By: Melinda Schultz Other Ambulatory Orders: Basic Metabolic Panel (Routine) Timeframe: 3 Days Facility: [facility] - Location: Laboratory Outpatient - [facility] Ordered By: Melinda Schultz Discharge Data Discharge Date/Time-TO BE ENTERED AT DEPARTURE: 03/03/24 12:35 DS: Summary Time Spent with Patient providing and/or coordinating discharge services: Greater than 30 minutes Status at Discharge Functional status at discharge: independent ambulation Overall status at discharge: patient is back to baseline Mental Status: mental status grossly normal Speech and Movement: speech and movement normal Mood: congruent mood Affect: normal affect Quality:SDOH Health Related Social Needs: Health related social needs details Resume BAART suboxone DAVID treatment Exam Narrative Exam Narrative: No acute distress , pacing about the room HEENT conjunctiva are noninjected sclera is anicteric oropharynx no exudate teeth are in poor repair mucous membranes are moist Neck supple nontender no JVD normal carotid pulses no bruits Lungs are clear to auscultation Heart is regular rate and rhythm without murmur rub or gallop Abdomen is nondistended normal bowel sounds soft and nontender with palpable hepatomegaly but no splenomegaly no bruits, patient has a midline scar from the umbilicus to the epigastrium from her prior cholecystectomy and pancreatic pseudocyst ectomy Lower extremities scant pitting edema of her feet and ankles with normal pedal pulses Skin without open lesions nonjaundiced but car appearance to the skin she has multiple tattoos Neuro exam grossly intact no asterixis normal range of motion grossly normal sensation light touch no tremors Psych Mental Status: mental status grossly normal Speech and Movement: speech and movement normal Mood: congruent mood Affect: normal affect DS: Data Vitals/I&O Vitals and I&O: Vital Signs Temperature 36.4 C L 03/03/24 06:46 Temperature Source Tympanic 03/03/24 06:46 Pulse 82 03/03/24 06:46 Pulse Rhythm Regular 03/03/24 08:43 Pulse 79 03/01/24 04:00 Respiratory Rate 16 03/03/24 06:46 Respiratory Effort Non-Labored 03/03/24 08:43 Respiratory Depth Normal 03/03/24 08:43 Respiratory Pattern Normal 03/03/24 08:43 Blood Pressure 137/80 03/03/24 06:46 Blood Pressure Mean 94 02/29/24 23:16 Blood Pressure Position Sitting 02/29/24 20:24 Pulse Oximetry 100 03/03/24 06:46 Oxygen Delivery Method Room Air 03/03/24 06:46 Oxygen Flow Rate 0 03/03/24 06:46 Pain Level 4 03/03/24 11:10 Comment Patient asked to not be woken up at 3am for vitals. 03/02/24 22:42 Intake & Output 03/02/24 03/03/24 03/03/24 23:59 11:59 23:59 Intake Total 1130 / 2275 220 / 220 Balance 1130 / 2275 220 / 220 Weight 59.4 kg Intake: IV 250 / 1395 Oral 880 / 880 220 / 220 Other: Comment per pt Data Completed and Pending Labs on day of discharge: Labs from last 24 hours 03/03/24 06:22 WBC 8.70 RBC 2.61 L Hgb 8.2 L Hct 25.5 L MCV 98 H D MCH 31.4 MCHC 32.2 D RDW 13.4 Plt Count 219 MPV 10.5 Immature Gran % 0.3 Neutrophils % 68.3 Lymphocytes % 15.9 Monocytes % 7.6 Eosinophils % 6.8 Basophils % 1.1 Nucleated RBC % 0.0 Absolute Neutrophils 5.94 Absolute Lymphocytes 1.38 Absolute Monocytes 0.66 Absolute Eosinophils 0.59 Absolute Basophils 0.10 Sodium 140 Potassium 3.9 Chloride 112 H Carbon Dioxide 17.0 L Anion Gap 11.0 BUN 1 L Creatinine 0.7 Est GFR (CKD-EPI 2020) 110.67 Glucose 134 H Calcium 7.5 L Magnesium 1.8 PFSH All Active Problems (Updated 03/03/24 @ 11:57 by Melinda Schultz NP) COPD (chronic obstructive pulmonary disease) (Chronic) Continuous tobacco abuse (Chronic) Alcohol abuse (Chronic) Hypokalemia (Acute) Diarrhea (Chronic) Normocytic normochromic anemia (Acute) Hypokalemia (Acute) Hypoalbuminemia (Acute) Hypomagnesemia (Acute) Bilateral edema of lower extremity (Acute) Opioid use disorder in remission (Chronic) Hypocalcemia (Chronic) Insomnia (Acute) Chronic pancreatitis (Chronic) Medical History Pancreatic pseudocyst Pancreatic mass Anasarca Ganglion cyst of dorsum of left wrist Colitis ADHD Opioid dependence on agonist therapy Surgical History S/P cholecystectomy and removal of two pancreatic pseudocysts Social History Smoking/Tobacco Use Status: Current every day Tobacco Type: cigarettes Smoking packs per day: 0.5 Smoking cigarettes per day: 10.0 Years smoked: 27 Smoking pack-years: 13.50 Quit status: considering quitting Counseling given: provider counseling and support medications Smoking risk assessment performed?: Yes Alcohol Intake: current Alcohol Intake frequency: a few times a month Alcohol type: beer Counseling provided: provider counseling Drug use: Occasionally Substance use type: marijuana Housing: apartment Do you feel safe at home: Yes Do you feel safe in your relationship?: Yes Time Spent with Patient Time Spent with Patient: 45-69 minutes Time was spent: preparing to see the patient(eg.review tests), ordering medications,tests, procedures, referring, communicating with other health animal caretaker, indepentently interpreting results, counseling the patient and care coordination
[2024-03-03 13:55] LABS: C Diff PCR Negative (Negative)
[2024-03-04 11:07] LABS: Campylobacter PCR Negative (Negative); Salmonella PCR Negative (Negative); Shiga Toxin PCR Negative (Negative); Shigella/Enteroinvasive Ecoli Negative (Negative)
== END 2024-03-03 12:35 | disposition home or self-care (01) | DRG 641 ==
LOC: ER 03-01 03:59 → MS 03-01 04:02
PROVIDERS: Emergency Medicine; Family Medicine; Nurse Practitioner Acute Care; Nurse Practitioner Family; Admitting Provider Family Medicine; Emergency Provider Student in an Organized Health Care Education/Training Program; PCP Nurse Practitioner Family; Visit Provider Family Medicine
DX: E87.6 Hypokalemia (principal); K86.1 Other chronic pancreatitis; K59.1 Functional diarrhea; E83.42 Hypomagnesemia; F90.2 Attention-deficit hyperactivity disorder, combined type; F10.10 Alcohol abuse, uncomplicated; F17.210 Nicotine dependence, cigarettes, uncomplicated; J41.1 Mucopurulent chronic bronchitis; F11.91 Opioid use, unspecified, in remission; D64.9 Anemia, unspecified; R60.0 Localized edema; G47.00 Insomnia, unspecified; E88.09 Other disorders of plasma-protein metabolism, not elsewhere classified; R94.31 Abnormal electrocardiogram [ECG] [EKG]
CPT/HCPCS: 00123; 36415; 80048; 80053; 80076; 80307; 83690; 85027; 87493; 87505; 87637; 93005; 96365; 96366; 96368; 99285; J1650; 71045; 80320; 81003; 81015; 83735; 84132; 84133; 84443; 84484; 85025; 85610; 93010; 94640; 94760; 99223; 99233; 99239; J1885; J3475; J3480; J3490; J7620

== ENCOUNTER 2024-03-08 09:56 | Outpatient (CLI) | payer MEDICARE, SELFPAY ==
[2024-03-08 10:17] LABS: Anion Gap 13.5 mmol/L (3-11); BUN 2 mg/dL (7-18); CO2 22.5 mmol/L (21.0-32.0); CREATININE 0.8 mg/dL (0.55-1.02); Calcium 8.3 mg/dL (8.5-10.1); Chloride 109 mmol/L (98-107); Estimated GFR 94.28 (mL/min/1.73m2); Glucose 152 mg/dL (74-106); Sodium 145 mmol/L (136-145)
[2024-03-08 10:26] LABS: Potassium 2.3 mmol/L (3.5-5.1)
== END 2024-03-08 09:57 | disposition home or self-care (01) ==
LOC: LBO 09:57
PROVIDERS: PCP Nurse Practitioner Family; Visit Provider Nurse Practitioner Family
DX: E87.6 Hypokalemia (principal)
CPT/HCPCS: 36415; 80048

== ENCOUNTER 2024-03-17 14:55 | Outpatient (CLI) | payer MEDICARE, SELFPAY ==
[2024-03-17 15:04] LABS: Hemoglobin A1C 5.2 % (<5.7)
[2024-03-17 15:09] LABS: C-Reactive Protein 1.04 mg/dL (<or=0.5)
[2024-03-17 15:15] LABS: Potassium 1.7 mmol/L (3.5-5.1)
[2024-03-18 10:51] LABS: HIV-1/2 Ag & Ab Screen Negative (Negative)
[2024-03-20 12:42] LABS: HCV RNA Qualitative Undetected (Undetected)
== END 2024-03-17 14:56 | disposition home or self-care (01) ==
LOC: LBO 14:56
PROVIDERS: PCP Nurse Practitioner Family; Visit Provider Nurse Practitioner Family
DX: Z00.00 Encounter for general adult medical examination without abnormal findings (principal); E87.6 Hypokalemia
CPT/HCPCS: 87389; 87522; 83036; 84132; 86140

== ENCOUNTER 2024-03-21 18:55 | Observation (INO) | payer MEDICARE, SELFPAY ==
--- NOTE | 2024-03-21 19:00 | RT.EKG_ITS ---
APPROVED REPORT Exam: Resting ECG Reason for Exam: low potassium Patient Location: E HR:106 bpm ECG Measurements Heart Rate 106 AXIS CA 126 P 83 QRSd 83 QRS 65 QT 323 T 238 QTc 430 Conclusion Sinus tachycardia...rate> 99 Multiple ventricular premature complexes...V complexes w/ short R-R intervls Posterior infarct, acute...ST<-0.1 V1-V3 or ST>.05 V7-V9 sinus tachycardia, normal axis, PVCs
[2024-03-21 19:01] VITALS: BP 148/101; PULSE 115; RESP 20; TEMP 36.8; O2SAT 99
--- NOTE | 2024-03-21 19:25 | ED.GENADUL_ITS ---
Discharge Plan Discharge Details Chief Complaint: GenMedical Primary Care Provider: Georgina Leyav ED Provider: Shanae Elias Home Meds and New Rx's Prescriptions: No Action trazodone 50 mg tablet 50 mg PO HS Patient Comments: take 1 tablet by mouth at bedtime spironolactone 50 mg tablet 100 mg PO BID diphenoxylate-atropine [Lomotil] 2.5-0.025 mg tablet 1 tab PO BID PRN (Reason: diarrhea) Qty: 14 0RF dextroamphetamine-amphetamine 30 mg tablet 30 mg PO BID@0800,1200 albuterol sulfate 90 mcg/actuation HFA aerosol inhaler 1 inh INHALATION Q4H PRN Brixadi 64 mg/0.18 mL solution, extended rel syringe 64 mg SUBCUT .monthly potassium chloride 20 mEq tablet extended release 40 meq PO BIDWMEAL Qty: 0 0RF HPI General Mode of arrival: ambulatory . Date/Time Provider Initiated Documentation: 03/21/24 18:56 . Limitations to Documentation: no limitations . Information obtained by: patient, RN notes reviewed and old records reviewed . HPI Narrative: 43-year-old female presents to the ER with a chief complaint of low potassium, weakness and diarrhea. Patient reports for the last month she has been having 4-7 episodes of diarrhea daily. Her PCP has her on large potassium supplements she had her blood drawn on Wednesday which showed a potassium of 1.7. She has been referred to GI specialist but has not heard from them. She does have a past medical history of a pancreatic mass, ADHD, colitis, opioid-induced disorder in remission, alcohol abuse, diarrhea COPD and status postcholecystectomy. She does appear very thin upon arrival. She is tachycardic with a rate of 115, patient reports she is taking total of 200 mL equivalents of potassium p.o. daily. She takes 5 tablets of potassium in the a.m. and 5 tablets of potassium in the p.m. and has been started on spironolactone . Related Data Home Medications ?Medication ?Instructions ?Recorded ?Confirmed trazodone 50 mg tablet 50 mg PO HS 05/31/23 03/21/24 dextroamphetamine-amphetamine 30 30 mg PO BID@0800,1200 10/26/23 03/21/24 mg tablet albuterol sulfate 90 mcg/actuation 1 inh inhalation Q4H PRN 02/05/24 03/21/24 aerosol inhaler buprenorphine 64 mg/0.18 mL 64 mg subcut .monthly 02/05/24 03/21/24 solution,exten.rel.subcutaneous syringe (Brixadi Monthly) potassium chloride 20 mEq 40 meq (2 x 20 mEq) PO BIDWMEAL #0 02/09/24 03/21/24 tablet,extended release tabs spironolactone 50 mg tablet 100 mg PO BID 03/01/24 03/21/24 diphenoxylate-atropine 2.5 1 tab PO BID PRN diarrhea #14 tabs 03/03/24 03/21/24 mg-0.025 mg tablet (Lomotil) Previous Rx's ?Medication ?Instructions ?Recorded potassium chloride 20 mEq 40 meq (2 x 20 mEq) PO BIDWMEAL #0 02/09/24 tablet,extended release tabs diphenoxylate-atropine 2.5 1 tab PO BID PRN diarrhea #14 tabs 03/03/24 mg-0.025 mg tablet (Lomotil) Allergies Allergy/AdvReac Type Severity Reaction Status Date / Time No Known Allergies Allergy Unverified 02/05/24 22:03 General Stated Complaint: GenMedical ADRIANA: 2 Review of Systems All systems reviewed & are unremarkable except as noted in HPI and below Constitutional Constitutional: Reports as per HPI, Reports lethargy and Reports weakness Gastrointestinal Gastrointestinal: Reports as per HPI, Reports abdominal pain (Cramping) and Reports diarrhea Neurologic Neurologic: Reports weakness Exam Narrative Exam Narrative: Constitutional: Alert and oriented x3. Appears older than stated age. Thin body habitus. Head: Normocephalic, no trauma. Eyes: Pupils PERRL, Red reflex noted, EOM's intact. Eyelids symmetrical without lesions, discharge, or swelling. ENT: Bilateral TM's WNL, External ear normal to inspection, no mastoid TTP, swelling, or erythema, Nasal turbinates WNL, no nasal discharge. Normal dentition, Posterior pharynx WNL, no exudate. Chest: RRR, Normal S1, S2, distal pulses intact. Resp: Lungs clear to auscultation bilaterally, no wheezes, rales, or rhonchi. Abdomen: Soft, non-distended, Normoactive bowel sounds all 4 quads. Musculoskeletal: Normal gait, Moves all 4 extremities without difficulty. Skin: No suspicious rashes or lesions. Capillary refill less than 2 sec. Neurologic: Cranial nerves II-XII intact. Alert and oriented x 3. Motor: No deficits noted. Sensory: Intact bilaterally all 4 extremities. Hematologic/Lymphatic: No ecchymosis, no lymphadenopathy. Patient Course Vital Signs Vital signs: Vital Signs Temperature 36.8 C 03/21/24 19:01 Pulse 115 H 03/21/24 19:01 Respiratory Rate 20 03/21/24 19:01 Blood Pressure 148/101 H 03/21/24 19:01 Pulse Oximetry 99 03/21/24 19:01 Temperature 36.8 C 03/21/24 19:01 Pulse 115 H 03/21/24 19:01 Respiratory Rate 20 03/21/24 19:01 Blood Pressure 148/101 H 03/21/24 19:01 Pulse Oximetry 99 03/21/24 19:01 Pain Level 0 03/21/24 19:01 Medical Decision Making 43-year-old female presents to the ER with a chief complaint of low potassium, weakness and diarrhea. Patient reports for the last month she has been having 4-7 episodes of diarrhea daily. Her PCP has her on large potassium supplements she had her blood drawn on Wednesday which showed a potassium of 1.7. She has been referred to GI specialist but has not heard from them. She does have a past medical history of a pancreatic mass, ADHD, colitis, opioid-induced disorder in remission, alcohol abuse, diarrhea COPD and status postcholecystectomy. She does appear very thin upon arrival. She is tachycardic with a rate of 115, patient reports she is taking total of 200 mL equivalents of potassium p.o. daily. She takes 5 tablets of potassium in the a.m. and 5 tablets of potassium in the p.m. and has been started on spironolactone . EKG was reviewed by Dr. Boston Wiley and myself ER attending, only ED available for review. Please see official report. Workup ordered including CBC CMP, troponin, CBC shows white count of 13.63, hemoglobin 10.5 hematocrit 29.3, azuentscie2.0 anion gap 14.2 glucose 235, magnesium low 1.5, total bilirubin 1.22 AST is 2 5 ALT 117 and alk phos 370 troponin is negative at 7. Albumin is 1.6. Added on lipase, TSH is 2.93 which is normal. Potassium is 40 mEq liquid p.o. ordered, 20 mill equivalents x 2 IV normal saline 309-hour and CT abdomen pelvis with IV contrast ordered. Patient does have a history of a pancreatic mass. I will evaluate this in light of her liver enzymes. CT abdomen pelvis shows hepatic steatosis, enlarged liver, thin-walled pancreatic fluid collections largest 5.3 3.8 cm. PHILIPPE pancreatic fat stranding around the pancreatic head. Acute on chronic pancreatitis pancolitis. Care is to be handed off to oncoming provider Godfrey Alcantara pending potassium infusion and re-evaluation. Repeat K after infusion. Patient is hemodynamically stable alert and oriented at the time of this dictation. Heart rate 98, O2 sat 100% on room air. This text was generated using [employer] dictation system, please disregard any oddities of phrase or misspellings. Medical Records Medical records reviewed: Yes I reviewed the patient's medical records. Imaging Data Radiologic Study: Imaging: CT Scan Radiologist's impression: IMPRESSION: 1. Acute on chronic pancreatitis with multiple pseudocysts. 2. Severe hepatic steatosis. 3. Possible cholangitis. 4. Pancolitis, likely pseudomembranous colitis. Thank you for allowing us to participate in the care of your patient. Dictated and Authenticated by: Chris Villa MD Lab Data Lab results reviewed: Yes I reviewed the patient's lab results. Labs: 03/21/24 21:13 Urine - Reflex from Ua Urine Culture - Pending Laboratory Tests Range/Units 03/21/24 03/21/24 19:45 21:13 WBC (4.4-10.8) 10^3/uL 13.63 H RBC (3.93-5.22) 10^6/uL 3.43 L Hgb (11.2-15.7) g/dL 10.5 L Hct (36.0-46.0) % 29.3 L MCV (80-95) fL 85 MCH (27.0-33.0) pg 30.6 MCHC (32.0-36.0) % 35.8 RDW (11.7-14.6) % 14.0 Plt Count (130-400) 10^3/uL 320 MPV (8.0-11.0) fL 10.9 Immature Gran % % 0.5 Neutrophils % % 75.2 Lymphocytes % % 15.3 Monocytes % % 6.8 Eosinophils % % 1.4 Basophils % % 0.8 Nucleated RBC % (0.0-0.3) % 0.0 Absolute Neutrophils (1.2-6.7) 10^3/uL 10.25 H Absolute Lymphocytes (1.2-3.4) 10^3/uL 2.09 Absolute Monocytes (0.1-0.8) 10^3/uL 0.93 H Absolute Eosinophils (0.0-0.7) 10^3/uL 0.19 Absolute Basophils (0.0-0.2) 10^3/uL 0.11 Sodium (136-145) mmol/L 141 Potassium (3.5-5.1) mmol/L 2.0 L* Chloride (98-107) mmol/L 104 Carbon Dioxide (21.0-32.0) mmol/L 22.8 Anion Gap (3-11) mmol/L 14.2 H BUN (7-18) mg/dL 3 L Creatinine (0.55-1.02) mg/dL 1.0 Est GFR (CKD-EPI 2020) (mL/min/1.73m2) 72.13 Glucose (74-106) mg/dL 235 H Calcium (8.5-10.1) mg/dL 8.1 L Magnesium (1.8-2.4) mg/dL 1.5 L Total Bilirubin (0.2-1.0) mg/dL 1.22 H AST (15-37) U/L 205 H ALT (14-59) U/L 117 H Alkaline Phosphatase (46-116) U/L 370 H Troponin I (<or=51) ng/L 7 Total Protein (6.4-8.2) g/dL 5.4 L Albumin (3.4-5.0) g/dL 1.6 L Lipase (16-77) U/L 53 TSH (0.36-3.74) uIU/mL 2.93 Urine Color (Yellow) Yellow Urine Clarity (Clear) Clear Urine pH (5-8) 6.0 Ur Specific [place] (1.005-1.025) 1.015 Urine Protein (Neg-Trace) mg/dL 30 H Urine Ketones (Negative) mg/dL Negative Urine Blood (Negative) Negative Urine Nitrite (Negative) Positive H Urine Bilirubin (Negative) Negative Urine Urobilinogen (Up to 0.2) mg/dL 0.2 Ur Leukocyte Esterase (Negative) Trace H Urine RBC (0-2) HPF Negative Urine WBC (0-5) HPF 10-20 H Ur Epithelial Cells (Negative) HPF Few Urine Crystals (Negative) HPF Negative Urine Bacteria (Negative) HPF Many Urine Casts (Negative) LPF Negative Urine Mucus (Negative) Trace Ur Culture Indicated? Yes Urine Glucose (Negative) mg/dL Negative Quality:SDOH Health Related Social Needs: Health related social needs details Resume BAART subox one DAVID treatment PFSH All Active Problems Hypokalemia (Acute) Normocytic normochromic anemia (Acute) Hypokalemia (Acute) Hypoalbuminemia (Acute) Hypomagnesemia (Acute) Bilateral edema of lower extremity (Acute) Hypocalcemia (Chronic) Insomnia (Acute) Chronic pancreatitis (Chronic) Medical History COPD (chronic obstructive pulmonary disease) Continuous tobacco abuse Alcohol abuse Diarrhea Opioid use disorder in remission Pancreatic pseudocyst Pancreatic mass Anasarca Ganglion cyst of dorsum of left wrist Colitis ADHD Opioid dependence on agonist therapy Surgical History S/P cholecystectomy and removal of two pancreatic pseudocysts Social History Smoking/Tobacco Use Status: Current every day Tobacco Type: cigarettes Smoking packs per day: 0.5 Smoking cigarettes per day: 10.0 Years smoked: 27 Smoking pack-years: 13.50 Quit status: considering quitting Counseling given: provider counseling and support medications Smoking risk assessment performed?: Yes Alcohol Intake: current Alcohol Intake frequency: a few times a month Alcohol type: beer Counseling provided: provider counseling Drug use: Occasionally Substance use type: marijuana Housing: apartment Do you feel safe at home: Yes Do you feel safe in your relationship?: Yes Sign Out Sign Out Data: Sign Out Comment: Here with hypokalemia. Hepatic Steatosis, Acute on chronic pancreatitis. Potassium is 2.0 magnesium 1.5. Patient was given 2 g of magnesium IV 2 IV boluses of 20 mill equivalents potassium and 40 mill equivalents p.o. Patient does have a history of diarrhea and colitis. She is taking large amounts of potassium supplements as an outpatient. Pending repeat potassium after infusion. Last updated by Shanae Elias NP at 03/21/24 23:35
[2024-03-21 19:34] VITALS: BP 136/94; PULSE 101; RESP 24; TEMP 36.8; O2SAT 100
[2024-03-21 19:55] LABS: Abs Immature Grans 0.07 10^3/uL (0.0-0.06); Absolute Basophil Count 0.11 10^3/uL (0.0-0.2); Absolute Eosinophil Count 0.19 10^3/uL (0.0-0.7); Absolute Lymphocyte Count 2.09 10^3/uL (1.2-3.4); Absolute Monocyte Count 0.93 10^3/uL (0.1-0.8); Basophils % 0.8 %; Eosinophils % 1.4 %; HCT 29.3 % (36.0-46.0); HGB 10.5 g/dL (11.2-15.7); Immature Grans % 0.5 %; Lymphocytes % 15.3 %; MCH 30.6 pg (27.0-33.0); MCHC 35.8 % (32.0-36.0); MCV 85 fL (80-95); MPV 10.9 fL (8.0-11.0); Monocytes % 6.8 %; Neutrophils % 75.2 %; Platelet Count 320 10^3/uL (130-400); RBC 3.43 10^6/uL (3.93-5.22); WBC 13.63 10^3/uL (4.4-10.8)
[2024-03-21 19:57] LABS: Absolute Neutrophil Count 10.25 10^3/uL (1.2-6.7)
[2024-03-21 20:12] LABS: ALT 117 U/L (14-59); AST 205 U/L (15-37); Albumin 1.6 g/dL (3.4-5.0); Alkaline Phosphatase 370 U/L (46-116); Anion Gap 14.2 mmol/L (3-11); BUN 3 mg/dL (7-18); Bilirubin, Total 1.22 mg/dL (0.2-1.0); CO2 22.8 mmol/L (21.0-32.0); Calcium 8.1 mg/dL (8.5-10.1); Chloride 104 mmol/L (98-107); Estimated GFR 72.13 (mL/min/1.73m2); Glucose 235 mg/dL (74-106); Magnesium 1.5 mg/dL (1.8-2.4); Sodium 141 mmol/L (136-145); Total Protein 5.4 g/dL (6.4-8.2); Troponin I 7 ng/L (<or=51)
--- NOTE | 2024-03-21 20:15 | DI.CT_ITS ---
Exam(s) CT ABDOMEN PELVIS W EXAM: CT ABDOMEN PELVIS W CLINICAL HISTORY: Elevated liver enzymes, Diarrhea. TECHNIQUE: Imaging Protocol: Axial computed tomography images with coronal and sagittal reformatted images were created and reviewed CONTRAST MATERIAL: Intravenous: Omnipaque-350 100cc Oral: None COMPARISON: CT CT ABDOMEN PELVIS W from 10/27/2023 FINDINGS: VISUALIZED LUNG BASES: No infiltrates nor pleural effusions. The uppermost image (image number 1) ex hibits a small nodular density measuring 4 mm, not completely included in the field of view.. ABDOMEN: There is no evidence of generalized ascites. LIVER: Liver is again noted be diffusely hypodense implying advanced the a ptosis. Liver size is sli ghtly prominent. There are no discrete focal hepatic lesions identified. No dilated intrahepatic du cts. GALLBLADDER/BILIARY: Gallbladder surgically absent . CBD diameter is slightly prominent measuring randy roximately 7-8 mm and there is uniform enhancement of the wall of the CBD. PANCREAS: Significantly abnormal with multiple intrapancreatic pseudocysts noted. The largest are in the pancreatic head measuring 3.5 x 3 cm and in the pancreatic tail region measuring 5 by 3 cm. The pancreatic tail pseudocyst abuts the adjacent wall of the stomach. There is some thickening of the wall of the duodenal C-loop which is most probably reactive. SPLEEN: Spleen size is normal. There are no intrasplenic pseudocysts. However, the splenic vein is occluded, with local collaterals extending to the portal vein confluence. This splenic vein thrombos is is complication related to prior severe pancreatitis. ADRENALS: There are no significant adrenal masses. KIDNEYS:No cysts evident. No solid renal masses. No calculi nor hydronephrosis.. ABDOMINAL AORTA: Abdominal aorta is not enlarged. LYMPH NODES:There is adenopathy around the celiac trunk related to the pancreatitis. ABDOMINAL WALL: No evidence of significant anterior abdominal wall nor inguinal hernia. GI: There is a colitis pattern which is most prominent in the right-side of the colon. No evidence of bowel obstruction nor free air. PELVIS: GI: No evidence of appendicitis.No evidence of sigmoid diverticulitis. LYMPH NODES: There is no intrapelvic nor inguinal adenopathy. REPRODUCTIVE: Uterus size normal and contains a properly positioned IUD. There are no abnormal adnex al masses nor free fluid in the pelvis URINARY BLADDER: No calculi nor obvious masses evident OSSEOUS: No fractures and no significant osseous lesions. There is unilateral right pars defect at L5 level. No listhesis evident. No evidence of avascular n ecrosis of the hips. IMPRESSION: 1. Multiple pseudocysts evident of the pancreas including within the head and tail region. Pancreati c head pseudocyst measures 3.5 x 3 cm and the tail region pseudocyst measures 5 x 3 cm. 2. There is thrombosis of the splenic vein which is secondary to prior severe pancreatitis. Spleen s ize is normal. There is no evidence of intrasplenic pseudocyst. 3. There is a pancolitis pattern which is most prominent in the right-side of the colon. Correlation with clinical history of diarrhea recommended 4. Gallbladder surgically absent. CBD slightly prominent in size which may be related to post cholec ystectomy status plus adjacent pseudocyst in the pancreatic head. There appears to be some uniform e nhancement of the CBD wall. There is no obvious mass in the CBD. 5. Advanced hepatic steatosis noted. No liver lesions evident. No dilated intrahepatic ducts. RADIATION DOSE DELIVERED: 222.63mGy.cm Total DLP DATA REPOSITORY: All CT scans at this facility are submitted to the National Radiology Data Registry (NRDR) Dose Index Registry (DIR) with the [employer] (ACR). RADIATION OPTIMIZATION: All CT scans at this facility use at least one of these dose optimization te chniques: automated exposure control; mA and/or kV adjustment per patient size (includes targeted exa ms where dose is matched to clinical indication); or iterative reconstruction.
[2024-03-21 20:20] LABS: TSH (W/Ref FT4) 2.93 uIU/mL (0.36-3.74)
[2024-03-21] MEDS: Omnipaque 350 MG/ML 100 ML BTL IJ (20:45)
[2024-03-21] MEDS: Normal Saline - Diluent 50 ML VIAL IJ (20:46)
[2024-03-21] MEDS: Normal Saline Flush 10 ML SYR IVP ×2 (20:46→21:16)
[2024-03-21 20:52] LABS: Lipase 53 U/L (16-77)
[2024-03-21] MEDS: Normal Saline 1,000 ML 300 ML IV (21:15)
[2024-03-21] MEDS: MAGNESIUM SULFATE 2 GM/50 ML BAG IVINF (21:15)
[2024-03-21] MEDS: POTASSIUM CHLORIDE 20 MEQ/100 ML BAG 50 MEQ IVINF (21:16)
[2024-03-21 21:27] LABS: Bilirubin Negative (Negative); Blood Negative (Negative); Clarity Clear (Clear); Glucose Negative (Negative); Ketones Negative (Negative); Leukocyte Esterase Trace (Negative); Nitrite Positive (Negative); Specific Gravity 1.015 (1.005-1.025); Urobilinogen 0.2 mg/dL (Up to 0.2)
[2024-03-21 21:36] LABS: Bacteria Many HPF (Negative); C & S Indicated? Yes; Casts Negative LPF (Negative); Crystals Negative HPF (Negative); Epithelial Cells Few HPF (Negative); Mucus Trace (Negative); RBC Negative HPF (0-2)
[2024-03-21] MEDS: Potassium Chloride 20 MEQ TABCR 40 MEQ PO (21:43)
[2024-03-21] MEDS: Cephalexin 500 MG CAP PO (21:46)
--- NOTE | 2024-03-21 22:09 | DI.VRAD_ITS ---
PROCEDURE INFORMATION: Exam: CT Abdomen And Pelvis With Contrast Exam date and time: 03/21/2024 8:52 PM Age: 43 years old Clinical indication: Prior surgery; Surgery date: 6+ months; Surgery type: Cholecystectomy; Patient HX: Elevated liver enzymes, diarrhea TECHNIQUE: Imaging protocol: Computed tomography of the abdomen and pelvis with contrast. Total images: 1159 Radiation optimization: All CT scans at this facility use at least one of these dose optimization techniques: automated exposure control; mA and/or kV adjustment per patient size (includes targeted exams where dose is matched to clinical indication); or iterative reconstruction. COMPARISON: CT ABDOMEN PELVIS W 10/27/2023 12:24 AM FINDINGS: Liver: Severe hepatic steatosis and hepatomegaly. Gallbladder and biliary ducts: Cholecystectomy. Mildly dilated thick walled common bile duct. Pancreas: Interval well-circumscribed thin walled pancreatic parenchymal collections, largest 5.3 and 3.8 cm. Peripancreatic fat stranding pancreatic head, neck and proximal body. Spleen: No splenomegaly or splenic nodule. Adrenal glands: No adrenal nodule. Kidneys and ureters: No renal mass. No hydronephrosis. No renal or ureteral calculi. Stomach and bowel: Wall thickening 2nd portion duodenym, likely reactive. Diffuse circumferential wall thickening entire colon. Appendix: No evidence of appendicitis. Intraperitoneal space: No free air or free fluid. Vasculature: Chronic splenic vein thrombosis. Lymph nodes: Persistent celiac axis adenopathy. Urinary bladder: No definite bladder wall thickening or stone. Reproductive: IUD centered in an anteverted uterus. Bones/joints: Bilateral L5 spondylolysis. Soft tissues: No significant finding, IMPRESSION: 1. Acute on chronic pancreatitis with multiple pseudocysts. 2. Severe hepatic steatosis. 3. Possible cholangitis. 4. Pancolitis, likely pseudomembranous colitis. Dictated and Authenticated by: Chris Villa MD. Ordering:TIO Jolly MD
[2024-03-21 23:50] VITALS: PULSE 99; RESP 14; O2SAT 100
[2024-03-22] VITALS (100 sets, daily range): BP systolic 98–164; BP diastolic 64–100; PULSE 76–115; RESP 11–38; TEMP 36.7–37.1; O2SAT 98–100
[2024-03-22] MEDS: POTASSIUM CHLORIDE 20 MEQ/100 ML BAG 50 MEQ IVINF ×3 (00:05→03:47)
[2024-03-22 02:47] LABS: Anion Gap 10.9 mmol/L (3-11); BUN 2 mg/dL (7-18); CO2 21.1 mmol/L (21.0-32.0); CREATININE 0.7 mg/dL (0.55-1.02); Calcium 7.2 mg/dL (8.5-10.1); Chloride 110 mmol/L (98-107); Estimated GFR 110.67 (mL/min/1.73m2); Glucose 139 mg/dL (74-106); Sodium 142 mmol/L (136-145)
[2024-03-22 02:56] LABS: Potassium 2.5 mmol/L (3.5-5.1)
[2024-03-22 03:16] LABS: Magnesium 2.2 mg/dL (1.8-2.4)
[2024-03-22] MEDS: MAGNESIUM SULFATE 2 GM/50 ML BAG IVINF (03:46)
--- NOTE | 2024-03-22 06:11 | ED.PROG_ITS ---
Date of service: 03/22/24 Time of Service: 06:12 Medical Decision Making The patient was signed out to me by my colleague Kareen Mullen pending repeat potassium levels. Patient was profoundly hypokalemic, with a potassium of 2. She is chronically on significant amounts of oral potassium, potassium sparing diuretic, but has been hypokalemic somewhat chronically. She was given 40 mEq orally and 20 IV while here. Initial potassium jamel from 2 to 2.5. However this certainly was still in the hypokalemic range. Discussed risks and benefits of additional potassium. Patient has consented for more. We will place a second IV and give 40 mill equivalents of potassium, 20 in each arm, at a rate of 10 mill equivalents per hour per arm. Expectant time for this to be finished his around [address] order for repeat blood draw and electrolyte reassessment. An additional 2 g of magnesium will also be administered this time as well. Patient will be signed out for follow-up on repeat labs. Additionally the patient's transaminases were elevated, and this is higher than normal. She does have a history of a cholecystectomy. Reviewed the CT scan which shows chronic cysts and hepatic steatosis, but also pancolitis and potentially pseudomembranous colitis. We are awaiting C. difficile testing. We will place an order for an ultrasound to further evaluate the common bile duct. Quality:SDOH Health Related Social Needs: Health related social needs details Resume HERNANDEZ sanfordper[facility] one DAVID treatment Critical Care Time Critical Care Time Critical Care Time: Yes Total Critical Care Time: 45 Attestation: Upon my evaluation, this patient had a high probability of imminent or life- threatening deterioration, which required my direct attention, intervention, and personal management. I have personally provided 45 minutes of critical care time exclusive of time spent on separately billable procedures. Time includes review of laboratory data, radiology results, discussion with consultants, and monitoring for potential decompensation. Interventions were performed as documented. Sign Out Sign Out Data: Sign Out Comment: Here with hypokalemia. Hepatic Steatosis, Acute on chronic pancreatitis. Potassium is 2.0 magnesium 1.5. Patient was given 2 g of magnesium IV 2 IV boluses of 20 mill equivalents potassium and 40 mill equivalents p.o. Patient does have a history of diarrhea and colitis. She is taking large amounts of potassium supplements as an outpatient. Pending repeat potassium after infusion. Last updated by Shanae Elias NP at 03/21/24 23:35 Discharge Plan Discharge Details Chief Complaint: GenMedical Clinical Impression: Chronic hypokalemia Primary Care Provider: Georgina Leyva ED Provider: Larry Alcantara Home Meds and New Rx's Prescriptions: No Action trazodone 50 mg tablet 50 mg PO HS Patient Comments: take 1 tablet by mouth at bedtime spironolactone 50 mg tablet 100 mg PO BID diphenoxylate-atropine [Lomotil] 2.5-0.025 mg tablet 1 tab PO BID PRN (Reason: diarrhea) Qty: 14 0RF dextroamphetamine-amphetamine 30 mg tablet 30 mg PO BID@0800,1200 albuterol sulfate 90 mcg/actuation HFA aerosol inhaler 1 inh INHALATION Q4H PRN Brixadi 64 mg/0.18 mL solution, extended rel syringe 64 mg SUBCUT .monthly potassium chloride 20 mEq tablet extended release 40 meq PO BIDWMEAL Qty: 0 0RF
--- NOTE | 2024-03-22 06:15 | DI.US_ITS ---
Exam(s) US ABDOMEN LIMITED EXAM: US ABDOMEN LIMITED CLINICAL HISTORY: eval cbd TECHNIQUE: Ultrasound abdomen performed using standard protocol. COMPARISON: CT CT ABDOMEN PELVIS W from 03/21/2024 FINDINGS: There is no ascites evident. LIVER: Liver is diffusely hyperechoic indicating steatosis and liver is slightly prominent in size. There are no discrete focal hepatic lesions nor dilated intrahepatic ducts. GALLBLADDER/BILIARY: Gallbladder surgically absent. The common hepatic duct ismildly dilated, measuring 7-8mm. There are no calculi in the CBD and no ma sses in the CBD. PANCREAS: There are multiple cysts in the pancreas. There is a 3.5 x 3.0 cm cyst in the head of the pancreas and a smaller adjacent cyst as well as larger cyst measuring 5 cm x 3.5 cm in the pancreatic tail. These are most probably stenosis. Pancreatic duct is difficult visualize but not obviously e nlarged. RIGHT KIDNEY:No evidence of solid mass, calculus, nor hydronephrosis. No cortical cysts evident. IMPRESSION: 1. Multiple cysts in the pancreas including a 35 x 30 mm cyst in the head of the pancreas. These ar e most probably pseudocysts from prior pancreatitis. There is no solid mass seen in the pancreas. 2. Hepatic steatosis. No discrete focal hepatic lesions. 3. CBD diameter is slightly prominent measuring 7-8 mm. There are no calculi seen in the CBD. The size of the CBD may in part be related to compression by the adjacent 3.5 cm cyst in the adjacent olivarez creatic head. There is no generalized ascites. DATA REPOSITORY:
[2024-03-22 07:49] LABS: C Diff PCR Negative (Negative)
[2024-03-22 09:23] LABS: Anion Gap 9.9 mmol/L (3-11); BUN 1 mg/dL (7-18); CO2 21.1 mmol/L (21.0-32.0); CREATININE 0.6 mg/dL (0.55-1.02); Chloride 112 mmol/L (98-107); Estimated GFR 114.86 (mL/min/1.73m2); Glucose 139 mg/dL (74-106); Sodium 143 mmol/L (136-145)
[2024-03-22 09:26] LABS: Potassium 2.3 mmol/L (3.5-5.1)
[2024-03-22] MEDS: Potassium Chloride 20 MEQ TABCR 80 MEQ PO (09:40)
--- NOTE | 2024-03-22 09:45 | NUR.NOTE ---
0930: breakfast tray provided Nursing Note:
--- NOTE | 2024-03-22 09:48 | W.EDPROG ---
Date of service: 03/22/24 Time of Service: 09:48 Medical Decision Making Patient signed out to me pending C. difficile and repeat potassium, potassium has gone down from 2.5-2.3 despite the IV and oral supplementation cellularity 80 mEq additional oral potassium. Patient's ultrasound shows no significant differences from the CT but given her increased LFTs from baseline and potentially of obstructed CBD will consult with gastroenterology at [facility]. Her C. difficile is negative and given her diarrhea and colitis on CT will treat with Augmentin and Cipro, the Cipro will also help treat her UTI. Will discuss with hospitalist as well about admitting given she's been here over 15 hours and no improvement significantly in K level Spoke with gastroenterology at [facility], they reviewed the case and do not feel as needed any acute intervention for the dilated CBD. They did recommend supportive therapy for her diarrhea and to trend LFTs if they significantly worsen then reconsult with them and they will consider potentially doing an intervention. Discussed with Dr. Razo who accepts for admission. Lab Data Lab results reviewed: Yes I reviewed the patient's lab results. Quality:[facility] Health Related Social Needs: Health related social needs details Resume BAART suboxone DAVID treatment Sign Out Sign Out Data: Sign Out Comment: Here with hypokalemia. Hepatic Steatosis, Acute on chronic pancreatitis. Potassium is 2.0 magnesium 1.5. Patient was given 2 g of magnesium IV 2 IV boluses of 20 mill equivalents potassium and 40 mill equivalents p.o. Patient does have a history of diarrhea and colitis. She is taking large amounts of potassium supplements as an outpatient. Pending repeat potassium after infusion. Last updated by Shanae Elias NP at 03/21/24 23:35 Sign Out Comment: Patient had repeat potassium done, potassium only increased to 2.5. Additional 40 mEq of IV potassium will be administered and [address] scan shows evidence of pseudomembranous colitis. Concern for C. difficile. Will get stool cultures including for C. difficile. Additionally the patient has transaminitis and an elevated bili, transaminitis is higher than normal. Common bile duct appears dilated. Old CT scan from 2022 demonstrates some dilation as well, however we will get ultrasound to evaluate for obstruction. Last updated by Larry Alcantara DO at 03/22/24 07:06 Discharge Plan Disposition Patient Disposition: Admit to [facility] Condition: Stable Discharge Details Chief Complaint: GenMedical Clinical Impression: Hypokalemia, Diarrhea Primary Care Provider: Georgina Leyva ED Provider: Zaid Rasmussen [place] Meds and New Rx's Prescriptions: No Action trazodone 50 mg tablet 50 mg PO HS Patient Comments: take 1 tablet by mouth at bedtime spironolactone 50 mg tablet 100 mg PO BID diphenoxylate-atropine [Lomotil] 2.5-0.025 mg tablet 1 tab PO BID PRN (Reason: diarrhea) Qty: 14 0RF dextroamphetamine-amphetamine 30 mg capsule,extended release 24hr 30 mg PO DAILY Patient Comments: TAKE ONE CAPSULE BY MOUTH EVERY MORNING dextroamphetamine-amphetamine 20 mg tablet 20 mg PO DAILY Patient Comments: TAKE ONE TABLET BY MOUTH EVERY DAY IN THE AFTERNOON albuterol sulfate 90 mcg/actuation HFA aerosol inhaler 1 inh INHALATION Q4H PRN Brixadi 64 mg/0.18 mL solution, extended rel syringe 64 mg SUBCUT .monthly potassium chloride 20 mEq tablet extended release 40 meq PO BIDWMEAL Qty: 0 0RF
[2024-03-22] MEDS: Amoxicillin 875/Clav. 125 TAB PO (09:51)
[2024-03-22] MEDS: Ciprofloxacin 500 MG TAB PO (09:51)
[2024-03-22] MEDS: Normal Saline Flush 10 ML SYR IVP ×4 (09:53→21:25)
--- NOTE | 2024-03-22 10:25 | W.PM.HP.N ---
Date of service: 03/22/24 Time of Service: 10:25 Assessment and Plan Assessment and plan (1) UTI (urinary tract infection): Status: Acute Assessment and plan: was started on cipro in the ED, continue day 1 while cultures pending. (2) Hypokalemia: Status: Acute Assessment and plan: Acute on chronic hypokalemia on spironolactone for anasarca and persistent hypokalemia chronic diarrhea: most likely the reason for loss of potassium continue to replete and follow (3) Hypomagnesemia: Status: Acute Assessment and plan: IV and oral repletion -Magnesium gluconate daily to continue at home Gastroenterology referral on d/c; has seen GI for chronic pancreatitis in the past mag level in AM (4) Diarrhea: Status: Acute Assessment and plan: was Hep C positive but no RNA HCV detected on previous stay; defer to PCP during f/u; not acute treatment at this time C-diff negative and stool pathogen PCR pending Symptomatic treatment : continue prn lomotil, consider questran Follow-up GI; know patient for GI, consulted in the past for chronic pancreatitis. Qualifiers: Diarrhea type: functional diarrhea Qualified Code(s): K59.1 - Functional diarrhea (5) Opioid use disorder in remission: Status: Acute Assessment and plan: Continue subcutaneous Suboxone monthly. (6) ADHD: Status: Acute Assessment and plan: continue home meds Qualifiers: Attention deficit-hyperactivity disorder type: combined inattentive-hyperactive Qualified Code(s): F90.2 - Attention-deficit hyperactivity disorder, combined type (7) Alcohol abuse: Status: Chronic Assessment and plan: elevated liver function tests, cessation discussed, resources offered. (8) Continuous tobacco abuse: Status: Acute Assessment and plan: Nicotine replacement while hospitalized as needed. . (9) COPD (chronic obstructive pulmonary disease): Status: Chronic Assessment and plan: stable, no exacerbation. Advised tobacco cessation on admit discussed with Dr. Oseguera Qualifiers: COPD type: chronic bronchitis Chronic bronchitis type: mucopurulent Qualified Code(s): J41.1 - Mucopurulent chronic bronchitis History of Present Illness History of Present Illness Chief Complaint: hypokalemia Review of Systems All systems reviewed & are unremarkable except as noted in HPI and below PFSH All Active Problems (Updated 03/22/24 @ 10:35 by Tanya Shaw NP) UTI (urinary tract infection) (Acute) ADHD (Acute) Opioid use disorder in remission (Acute) Diarrhea (Acute) Alcohol abuse (Chronic) Continuous tobacco abuse (Acute) COPD (chronic obstructive pulmonary disease) (Chronic) Chronic hypokalemia (Acute) Hypokalemia (Acute) Normocytic normochromic anemia (Acute) Hypokalemia (Acute) Hypoalbuminemia (Acute) Hypomagnesemia (Acute) Bilateral edema of lower extremity (Acute) Hypocalcemia (Chronic) Insomnia (Acute) Chronic pancreatitis (Chronic) Medical History COPD (chronic obstructive pulmonary disease) Continuous tobacco abuse Alcohol abuse Diarrhea Opioid use disorder in remission Pancreatic pseudocyst Pancreatic mass Anasarca Ganglion cyst of dorsum of left wrist Colitis ADHD Opioid dependence on agonist therapy Surgical History S/P cholecystectomy and removal of two pancreatic pseudocysts Social History Smoking/Tobacco Use Status: Current every day Tobacco Type: cigarettes Smoking packs per day: 0.5 Smoking cigarettes per day: 10.0 Years smoked: 27 Smoking pack-years: 13.50 Quit status: considering quitting Counseling given: provider counseling and support medications Smoking risk assessment performed?: Yes Alcohol Intake: current Alcohol Intake frequency: a few times a month Alcohol type: beer Counseling provided: provider counseling Drug use: Occasionally Substance use type: marijuana Housing: apartment Do you feel safe at home: Yes Do you feel safe in your relationship?: Yes Meds Allergies and Home Medications Allergies Allergy/AdvReac Type Severity Reaction Status Date / Time No Known Allergies Allergy Unverified 02/05/24 22:03 Home Medications ?Medication ?Instructions ?Recorded ?Confirmed ?Type trazodone 50 mg tablet 50 mg PO HS 05/31/23 03/21/24 History albuterol sulfate 90 mcg/actuation 1 inh inhalation Q4H PRN 02/05/24 03/21/24 History aerosol inhaler buprenorphine 64 mg/0.18 mL 64 mg subcut .monthly 02/05/24 03/21/24 History solution,exten.rel.subcutaneous syringe (Brixadi Monthly) potassium chloride 20 mEq 40 meq (2 x 20 mEq) PO BIDWMEAL #0 08/07/24 09/17/24 Rx tablet,extended release tabs spironolactone 50 mg tablet 100 mg PO BID 03/01/24 03/21/24 History diphenoxylate-atropine 2.5 1 tab PO BID PRN diarrhea #14 tabs 03/03/24 03/21/24 Rx mg-0.025 mg tablet (Lomotil) dextroamphetamine-amphetamine 20 20 mg PO DAILY 03/22/24 03/22/24 History mg tablet dextroamphetamine-amphetamine ER 30 mg PO DAILY 03/22/24 03/22/24 History 30 mg 24hr capsule,extend release Exam Narrative Exam Narrative: Chronically ill-appearing female in no acute distress head is atraumatic oral mucosa is dry. neck is supple no JVD cardiovascular regular rate and rhythm breath sounds are clear bilaterally diminished in the bases respirations are even and unlabored abdomen is slightly distended generalized tenderness no guarding no rebound her extremities she has peripheral edema bilaterally and hands are discolored/reddened. Psychiatric her mood and affect are appropriate she is cooperative Results Labs 03/21/24 19:45 03/22/24 12:20 Labs: Laboratory Results - last 24 hr 03/21/24 03/21/24 03/22/24 19:45 21:13 02:32 WBC 13.63 H RBC 3.43 L Hgb 10.5 L Hct 29.3 L MCV 85 MCH 30.6 MCHC 35.8 RDW 14.0 Plt Count 320 MPV 10.9 Immature Gran % 0.5 Neutrophils % 75.2 Lymphocytes % 15.3 Monocytes % 6.8 Eosinophils % 1.4 Basophils % 0.8 Nucleated RBC % 0.0 Absolute Neutrophils 10.25 H Absolute Lymphocytes 2.09 Absolute Monocytes 0.93 H Absolute Eosinophils 0.19 Absolute Basophils 0.11 Sodium 141 142 Potassium 2.0 L* 2.5 L* Chloride 104 110 H Carbon Dioxide 22.8 21.1 Anion Gap 14.2 H 10.9 BUN 3 L 2 L Creatinine 1.0 0.7 Est GFR (CKD-EPI 2020) 72.13 110.67 Glucose 235 H 139 H Calcium 8.1 L 7.2 L Magnesium 1.5 L 2.2 Total Bilirubin 1.22 H AST 205 H ALT 117 H Alkaline Phosphatase 370 H Troponin I 7 Total Protein 5.4 L Albumin 1.6 L Lipase 53 TSH 2.93 Urine Color Yellow Urine Clarity Clear Urine pH 6.0 Ur Specific [place] 1.015 Urine Protein 30 H Urine Ketones Negative Urine Blood Negative Urine Nitrite Positive H Urine Bilirubin Negative Urine Urobilinogen 0.2 Ur Leukocyte Esterase Trace H Urine RBC Negative Urine WBC 10-20 H Ur Epithelial Cells Few Urine Crystals Negative Urine Bacteria Many Urine Casts Negative Urine Mucus Trace Ur Culture Indicated? Yes Urine Glucose Negative Stl C.difficile Tox PCR 03/22/24 03/22/24 06:40 09:00 WBC RBC Hgb Hct MCV MCH MCHC RDW Plt Count MPV Immature Gran % Neutrophils % Lymphocytes % Monocytes % Eosinophils % Basophils % Nucleated RBC % Absolute Neutrophils Absolute Lymphocytes Absolute Monocytes Absolute Eosinophils Absolute Basophils Sodium 143 Potassium 2.3 L* Chloride 112 H Carbon Dioxide 21.1 Anion Gap 9.9 BUN 1 L Creatinine 0.6 Est GFR (CKD-EPI 2020) 114.86 Glucose 139 H Calcium 7.0 L Magnesium Total Bilirubin AST ALT Alkaline Phosphatase Troponin I Total Protein Albumin Lipase TSH Urine Color Urine Clarity Urine pH Ur Specific [place] Urine Protein Urine Ketones Urine Blood Urine Nitrite Urine Bilirubin Urine Urobilinogen Ur Leukocyte Esterase Urine RBC Urine WBC Ur Epithelial Cells Urine Crystals Urine Bacteria Urine Casts Urine Mucus Ur Culture Indicated? Urine Glucose Stl C.difficile Tox PCR Negative Last Vital Signs Temp 36.8 C 03/21/24 19:34 Pulse 101 H 03/22/24 09:45 Resp 19 03/22/24 09:50 BP 164/79 H 03/22/24 09:45 Pulse Ox 100 03/22/24 09:26 PAWSS Have you Been Recently Intoxicated or Drunk Within the Last 30 days?: No Have you Ever Experienced Previous Episodes of Alcohol Withdrawal?: No Have you ever Experienced Withdrawal Seizures?: No Have you ever Experienced Delirium Tremens(DT)s?: No Have you ever undergone Alcohol Rehabilitation Treatment (i.e, inpt ot outpatient treatment programs)?: No Have you ever Experienced Blackouts?: No Have you ever Combined Alcohol with other Downers within the last 90 days?: No Have you ever Combined Alcohol with any other Substance of Abuse during the last 90 days?: No Positive Blood Alcohol level on Presentation? [PCS.BAL]: No Evidence of Increased Autonomic Activity (i.e. HR>120, tremor, sweating, agitation, nausea)?: No Result: 0 Time Spent Time spent with Patient: 55-74 minutes Time was spent: preparing to see the patient(eg.review tests), obtaining and/or reviewing separately otained hiistory, ordering medications,tests, procedures, indepentently interpreting results and counseling the patient
[2024-03-22] MEDS: Spironolactone 50 MG TAB 100 MG PO ×2 (11:50→21:25)
[2024-03-22 12:46] LABS: Bilirubin, Direct 0.6 mg/dL (0.0-0.2)
[2024-03-22 12:48] LABS: Potassium 2.3 mmol/L (3.5-5.1)
--- NOTE | 2024-03-22 14:11 | W.PC.ACHO ---
Registration Status: Primary Language: Preferred Language: ED Information & Data Chief Complaint GenMedical 03/21/24 19:32 Chief Complaint GenMedical 03/21/24 19:28 Triage Note doctor called wednesday with 03/21/24 19:01 critical potassium level of 1.7 Medical / Surgical History (Last Reviewed 03/21/24 @ 19:26 by Shanae Elias NP) Pancreatic pseudocyst Pancreatic mass Anasarca Ganglion cyst of dorsum of left wrist Colitis Opioid dependence on agonist therapy (Last Reviewed 03/21/24 @ 19:26 by Shanae Elias NP) S/P cholecystectomy Most Recent Vital Signs Temperature 36.8 C 03/21/24 19:34 Temperature Source Temporal Artery Scan 03/21/24 19:34 Pulse 81 03/22/24 11:31 Pulse 97 H 03/22/24 13:10 Respiratory Rate 12 03/22/24 13:00 Respiratory Effort Normal, Non-Labored 03/21/24 19:34 Respiratory Depth Normal 03/21/24 19:34 Respiratory Pattern Normal 03/21/24 19:34 Blood Pressure 133/84 03/22/24 11:31 Blood Pressure Mean 99 03/22/24 11:31 Pulse Oximetry 100 03/22/24 09:26 Oxygen Delivery Method Room Air 03/21/24 19:34 Pain Level 0 03/21/24 19:01 Allergies No Known Allergies Allergy (Unverified 02/05/24 22:03) Active Medications Generic Name Dose Route Start Last Admin Trade Name Freq PRN Reason Stop Dose Admin Iohexol 100 ml 03/21/24 20:45 03/21/24 20:45 Omnipaque 350 Mg/Ml 100 Ml Btl IJ 04/20/24 23:59 76 ml DIRECTED DIMAS Administration Sodium Chloride 0 ml 03/21/24 19:15 03/21/24 20:46 Normal Saline Flush 10 Ml Syr IVP 10 ml PRN PRN Administration Sodium Chloride 0 ml 03/21/24 20:00 03/22/24 09:53 Normal Saline Flush 10 Ml Syr IVP 10 ml BID DIMAS Administration Sodium Chloride 50 ml 03/21/24 20:45 03/21/24 20:46 Normal Saline - Diluent 50 Ml Vial IJ 50 ml .FOR DI USE DIMAS Administration Spironolactone 100 mg 03/22/24 10:25 03/22/24 11:50 Spironolactone 50 Mg Tab PO 100 mg BID DIMAS Administration IV IV Catheter Type [Right Peripheral IV Forearm] IV Catheter Type [Left Saline Lock Antecubital] IV Catheter Gauge [Right 20 Forearm] IV Catheter Gauge [Left 18 Antecubital] Diagnostics 03/22/24 03/22/24 03/22/24 Range/Units 12:20 09:00 06:40 WBC (4.4-10.8) 10^3/uL RBC (3.93-5.22) 10^6/uL Hgb (11.2-15.7) g/dL Hct (36.0-46.0) % MCV (80-95) fL MCH (27.0-33.0) pg MCHC (32.0-36.0) % RDW (11.7-14.6) % Plt Count (130-400) 10^3/uL MPV (8.0-11.0) fL Immature Gran % % Neutrophils % % Lymphocytes % % Monocytes % % Eosinophils % % Basophils % % Nucleated RBC % (0.0-0.3) % Absolute Neutrophils (1.2-6.7) 10^3/uL Absolute Lymphocytes (1.2-3.4) 10^3/uL Absolute Monocytes (0.1-0.8) 10^3/uL Absolute Eosinophils (0.0-0.7) 10^3/uL Absolute Basophils (0.0-0.2) 10^3/uL Sodium 143 (136-145) mmol/L Potassium 2.3 L* 2.3 L* (3.5-5.1) mmol/L Chloride 112 H (98-107) mmol/L Carbon Dioxide 21.1 (21.0-32.0) mmol/L Anion Gap 9.9 (3-11) mmol/L BUN 1 L (7-18) mg/dL Creatinine 0.6 (0.55-1.02) mg/dL Est GFR (CKD-EPI 2020) 114.86 (mL/min/1.73m2) Glucose 139 H (74-106) mg/dL Calcium 7.0 L (8.5-10.1) mg/dL Magnesium (1.8-2.4) mg/dL Total Bilirubin (0.2-1.0) mg/dL Conjugated Bilirubin 0.6 H (0.0-0.2) mg/dL AST (15-37) U/L ALT (14-59) U/L Alkaline Phosphatase (46-116) U/L Troponin I (<or=51) ng/L Total Protein (6.4-8.2) g/dL Albumin (3.4-5.0) g/dL Lipase (16-77) U/L TSH (0.36-3.74) uIU/mL Urine Color (Yellow) Urine Clarity (Clear) Urine pH (5-8) Ur Specific Elliott (1.005-1.025) Urine Protein (Neg-Trace) mg/dL Urine Ketones (Negative) mg/dL Urine Blood (Negative) Urine Nitrite (Negative) Urine Bilirubin (Negative) Urine Urobilinogen (Up to 0.2) mg/dL Ur Leukocyte Esterase (Negative) Urine RBC (0-2) HPF Urine WBC (0-5) HPF Ur Epithelial Cells (Negative) HPF Urine Crystals (Negative) HPF Urine Bacteria (Negative) HPF Urine Casts (Negative) LPF Urine Mucus (Negative) Ur Culture Indicated? Urine Glucose (Negative) mg/dL Stool Campylobacter PCR Pending Stl C.difficile Tox PCR Negative (Negative) Stool Salmonella PCR Pending Stool Shigella PCR Pending Stool Ova & Parasites Pending Shiga Toxin (PCR) Pending 03/22/24 03/21/24 03/21/24 Range/Units 02:32 21:13 19:45 WBC 13.63 H (4.4-10.8) 10^3/uL RBC 3.43 L (3.93-5.22) 10^6/uL Hgb 10.5 L (11.2-15.7) g/dL Hct 29.3 L (36.0-46.0) % MCV 85 (80-95) fL MCH 30.6 (27.0-33.0) pg MCHC 35.8 (32.0-36.0) % RDW 14.0 (11.7-14.6) % Plt Count 320 (130-400) 10^3/uL MPV 10.9 (8.0-11.0) fL Immature Gran % 0.5 % Neutrophils % 75.2 % Lymphocytes % 15.3 % Monocytes % 6.8 % Eosinophils % 1.4 % Basophils % 0.8 % Nucleated RBC % 0.0 (0.0-0.3) % Absolute Neutrophils 10.25 H (1.2-6.7) 10^3/uL Absolute Lymphocytes 2.09 (1.2-3.4) 10^3/uL Absolute Monocytes 0.93 H (0.1-0.8) 10^3/uL Absolute Eosinophils 0.19 (0.0-0.7) 10^3/uL Absolute Basophils 0.11 (0.0-0.2) 10^3/uL Sodium 142 141 (136-145) mmol/L Potassium 2.5 L* 2.0 L* (3.5-5.1) mmol/L Chloride 110 H 104 (98-107) mmol/L Carbon Dioxide 21.1 22.8 (21.0-32.0) mmol/L Anion Gap 10.9 14.2 H (3-11) mmol/L BUN 2 L 3 L (7-18) mg/dL Creatinine 0.7 1.0 (0.55-1.02) mg/dL Est GFR (CKD-EPI 2020) 110.67 72.13 (mL/min/1.73m2) Glucose 139 H 235 H (74-106) mg/dL Calcium 7.2 L 8.1 L (8.5-10.1) mg/dL Magnesium 2.2 1.5 L (1.8-2.4) mg/dL Total Bilirubin 1.22 H (0.2-1.0) mg/dL Conjugated Bilirubin (0.0-0.2) mg/dL AST 205 H (15-37) U/L ALT 117 H (14-59) U/L Alkaline Phosphatase 370 H (46-116) U/L Troponin I 7 (<or=51) ng/L Total Protein 5.4 L (6.4-8.2) g/dL Albumin 1.6 L (3.4-5.0) g/dL Lipase 53 (16-77) U/L TSH 2.93 (0.36-3.74) uIU/mL Urine Color Yellow (Yellow) Urine Clarity Clear (Clear) Urine pH 6.0 (5-8) Ur Specific Elliott 1.015 (1.005-1.025) Urine Protein 30 H (Neg-Trace) mg/dL Urine Ketones Negative (Negative) mg/dL Urine Blood Negative (Negative) Urine Nitrite Positive H (Negative) Urine Bilirubin Negative (Negative) Urine Urobilinogen 0.2 (Up to 0.2) mg/dL Ur Leukocyte Esterase Trace H (Negative) Urine RBC Negative (0-2) HPF Urine WBC 10-20 H (0-5) HPF Ur Epithelial Cells Few (Negative) HPF Urine Crystals Negative (Negative) HPF Urine Bacteria Many (Negative) HPF Urine Casts Negative (Negative) LPF Urine Mucus Trace (Negative) Ur Culture Indicated? Yes Urine Glucose Negative (Negative) mg/dL Stool Campylobacter PCR Stl C.difficile Tox PCR (Negative) Stool Salmonella PCR Stool Shigella PCR Stool Ova & Parasites Shiga Toxin (PCR) 03/21/24 21:13 Urine Culture - Pending Urine - Reflex from Ua Intake and Output - 24 Hour Total 03/21/24 18:55 thru 03/22/24 09:04 Intake Total 1500 Balance 1500 Weight 53.07 kg Intake: IV 1500 Falls Risk Assessment History of Falls No History 03/21/24 19:34 Contributing Factors No Factors 03/21/24 19:34 Ambulatory Aids Independent 03/21/24 19:34 Tubes/Lines None 03/21/24 19:34 Gait Evaluation No gait disturbance 03/21/24 19:34 Cognition No cognitive impairment 03/21/24 19:34 Fall Total Score 0 03/21/24 19:34 Level of Risk Standard/Low Risk 03/21/24 19:34 Problems (Last Reviewed 03/21/24 @ 19:26 by Shanae Elias NP) UTI (urinary tract infection) (Acute) ADHD (Acute) Opioid use disorder in remission (Acute) Diarrhea (Acute) Alcohol abuse (Chronic) Continuous tobacco abuse (Acute) COPD (chronic obstructive pulmonary disease) (Chronic) Hypokalemia (Acute) Hypomagnesemia (Acute) Notes 03/22/24 09:45 Nursing Notes by Marbella Westfall 0930: breakfast tray provided Nursing Note: Initialized on 03/22/24 09:45 - END OF NOTE v v v v v v v v v Sending and/or Receiving Nurses: Please use comment section below to note any information pertinent to the patient hand-off not included above. Information / Comments: Admitted due to diarrhea and hypokalemia with a history of colitis. Advised by doctor to admit self s Alberto r/t magnesium of 1.7. Potassium was 2.5 on admission but now 2.3. We will be giving oral potassium supplementation to replace along with correcting all electrolytes. She is also receiving cipro for a UTI and will be observing her bile duct. She is alert and oriented, on telemetry showing sinus rhythm in the 80's with a BP of 133/80. At rest, she denies any pain. Report received from: Ana María Rivera
--- NOTE | 2024-03-22 14:27 | PHA.REVIEW2 ---
Pharmacy Admission Review Admission Clinical Review Admission Pharmacy Review: UTI (urinary tract infection) (Acute) ADHD (Acute) Opioid use disorder in remission (Acute) Diarrhea (Acute) Continuous tobacco abuse (Acute) Hypokalemia (Acute) Hypomagnesemia (Acute) No Known Allergies Allergy (Unverified 02/05/24 22:03) Resuscitation Status Full Code Height 5 ft 2 in Weight 53.07 kg Pharmacy Admission Review Renal Dosing Renal Dosing: BUN 1 mg/dL (7-18) L 03/22/24 09:00 Creatinine 0.6 mg/dL (0.55-1.02) 03/22/24 09:00 Medications needing adjustments: Reviewed (CrCl 102.33 mL/min) List of meds needing interventions: Current medications are okay Anticoagulation Anticoagulation: Hgb 10.5 g/dL (11.2-15.7) L 03/21/24 19:45 Hct 29.3 % (36.0-46.0) L 03/21/24 19:45 Plt Count 320 10^3/uL (130-400) 03/21/24 19:45 Creatinine 0.6 mg/dL (0.55-1.02) 03/22/24 09:00 DVT Prophylaxis: Intervened (None at this time, reached out to provider. Waiting to hear back) Relevant Labs Relevant Labs: Sodium 143 mmol/L (136-145) 03/22/24 09:00 Potassium 2.3 mmol/L (3.5-5.1) L* 03/22/24 12:20 Chloride 112 mmol/L (98-107) H 03/22/24 09:00 Magnesium 2.2 mg/dL (1.8-2.4) 03/22/24 02:32 Electrolytes, C-Reactive P, ESR: Reviewed (K 2.3 - repleting with IV infusions, glucose 139) Cardiac Review Cardiac Review: Troponin I 7 ng/L (<or=51) 03/21/24 19:45 BP, HR, EF%: Reviewed (BP and HR WNL) List meds needing interventions: Patient is on spironolactone 100mg BID QTc Review QTc: Reviewed (EKG report pending) IV to PO Switch IV Medications: Reviewed Home Meds Home Med List reviewed: Intervened Relevent Home Meds Not ordered & why?: Brixadi (monthly injection) Patient has potassium 20mEq tablets on home med list. Home med list says patient takes 2 tablets BID but prescription (filled 03/14/24) says 5 tablets BID. Reached out to provider to verify what they would like. Current order is for 2 tabs BID. Updated Adderall on home med based on most recent fill history: changed from Adderall IR 30mg BID to Adderall ER 30mg daily with 20mg of IR in the afternoon Current Meds Current Medication Order Review: Intervened Comments: Updated Adderall orders to match changes on home med list above Pharmacy Antibiotic Review Relevant Labs: WBC 13.63 10^3/uL (4.4-10.8) H 03/21/24 19:45 Pharmacy Antibiotic Activity: C/S review and Reviewed, no change Comments: Patient received 1 time doses of Augmentin, cephalexin and ciprofloxacin in the ED for UTI. No other order was put in for continued doses, reached out to provider to make sure they were aware. Waiting to hear back. Urine culture pending.
[2024-03-22] MEDS: Amphet Asp/Amphet/D-Amphet 10 MG TAB 20 MG PO (14:54)
[2024-03-22] MEDS: Potassium Chloride 20 MEQ TABCR 100 MEQ PO (16:54)
[2024-03-22] MEDS: hydrOXYzine HCL 25 MG TAB 50 MG PO (17:49)
[2024-03-22] MEDS: POTASSIUM CHLORIDE 10 MEQ/100 ML BAG 100 MEQ IVINF ×3 (17:49→23:55)
[2024-03-22] MEDS: Pantoprazole 40 MG VIAL IVP (18:46)
[2024-03-22] MEDS: Nicotine 21 MG/24 HR PATCH TD (18:46)
[2024-03-22] MEDS: Calcium Carbonate *TUMS* 500 MG CHEW 1000 MG PO (18:46)
[2024-03-22] MEDS: traZODone 50 MG TAB PO (21:25)
[2024-03-22] MEDS: Potassium Chloride 20 MEQ TABCR 40 MEQ PO (21:36)
[2024-03-23 00:15] LABS: Campylobacter PCR Negative (Negative); Salmonella PCR Negative (Negative); Shiga Toxin PCR Negative (Negative); Shigella/Enteroinvasive Ecoli Negative (Negative)
[2024-03-23] MEDS: POTASSIUM CHLORIDE 10 MEQ/100 ML BAG 100 MEQ IVINF (02:09)
[2024-03-23 07:19] LABS: Abs Immature Grans 0.07 10^3/uL (0.0-0.06); Absolute Basophil Count 0.07 10^3/uL (0.0-0.2); Absolute Eosinophil Count 0.34 10^3/uL (0.0-0.7); Absolute Lymphocyte Count 1.58 10^3/uL (1.2-3.4); Absolute Monocyte Count 0.72 10^3/uL (0.1-0.8); Absolute Neutrophil Count 6.74 10^3/uL (1.2-6.7); Basophils % 0.7 %; Eosinophils % 3.6 %; HCT 29.5 % (36.0-46.0); HGB 10.1 g/dL (11.2-15.7); Immature Grans % 0.7 %; Lymphocytes % 16.6 %; MCH 30.5 pg (27.0-33.0); MCHC 34.2 % (32.0-36.0); MCV 89 fL (80-95); Monocytes % 7.6 %; Neutrophils % 70.8 %; Platelet Count 201 10^3/uL (130-400); RBC 3.31 10^6/uL (3.93-5.22); RDW 14.4 % (11.7-14.6); RDW-SD 46.9 fL; WBC 9.52 10^3/uL (4.4-10.8)
[2024-03-23 07:33] VITALS: BP 149/96; PULSE 94; RESP 16; TEMP 36.6; O2SAT 100
[2024-03-23] MEDS: Pantoprazole 40 MG VIAL IVP (07:41)
[2024-03-23] MEDS: Potassium Chloride 20 MEQ TABCR 40 MEQ PO ×4 (07:42→23:26)
[2024-03-23] MEDS: Spironolactone 50 MG TAB 100 MG PO ×2 (07:42→19:25)
[2024-03-23 07:47] LABS: ALT 100 U/L (14-59); AST 135 U/L (15-37); Albumin 1.3 g/dL (3.4-5.0); Alkaline Phosphatase 323 U/L (46-116); Anion Gap 10.5 mmol/L (3-11); BUN 1 mg/dL (7-18); Bilirubin, Total 1.48 mg/dL (0.2-1.0); CO2 20.5 mmol/L (21.0-32.0); CREATININE 0.7 mg/dL (0.55-1.02); Calcium 7.3 mg/dL (8.5-10.1); Chloride 112 mmol/L (98-107); Estimated GFR 110.67 (mL/min/1.73m2); Glucose 133 mg/dL (74-106); Magnesium 1.8 mg/dL (1.8-2.4); Sodium 143 mmol/L (136-145); Total Protein 4.6 g/dL (6.4-8.2)
[2024-03-23 07:57] LABS: Potassium 2.3 mmol/L (3.5-5.1)
[2024-03-23] MEDS: Normal Saline Flush 10 ML SYR IVP ×3 (08:05→19:29)
--- NOTE | 2024-03-23 10:11 | PGE_ITS ---
Date of Service Date of service: 03/23/24 Time of Service: 10:11 Assessment and Plan Assessment and plan (1) UTI (urinary tract infection): Status: Acute Assessment and plan: was started on cipro in the ED, continue day 1 while cultures pending.-E. coli positive Fosfomycin 3 gm PO (2) Hypokalemia: Status: Acute Assessment and plan: Acute on chronic hypokalemia on spironolactone for anasarca and persistent hypokalemia Mag level normal K 2.3 despite scheduled oral supplementation - additionnal IV potassium ordered K level at 18:00 - 3.5 BMP in AM chronic diarrhea: most likely the reason for loss of potassium continue to replete and follow (3) Hypomagnesemia: Status: Acute Assessment and plan: Reolved with IV and oral repletion -Magnesium gluconate daily to continue at home Provide GI referral on d/c; has seen GI for chronic pancreatitis in the past mag level in AM (4) Diarrhea: Status: Acute Assessment and plan: was Hep C positive but no RNA HCV detected on previous stay; defer to PCP during f/u; not acute treatment at this time C-diff negative and stool pathogen PCR pending- shiga tox negative Symptomatic treatment : continue prn lomotil and immodium Follow-up GI; know patient for GI, consulted in the past for chronic pancreatitis. Chronic pancreatitis with past cholecystectomy - Will order elastase to evaulate the need for enzymes sucgh as creon Cholysteramine ordered to reduce diarrhea- can also help with transaminitis Qualifiers: Diarrhea type: functional diarrhea Qualified Code(s): K59.1 - Functional diarrhea (5) Opioid use disorder in remission: Status: Acute Assessment and plan: Continue subcutaneous Suboxone monthly. Consider low dose oral if exacerbation (6) ADHD: Status: Acute Assessment and plan: On home meds Qualifiers: Attention deficit-hyperactivity disorder type: combined inattentive- hyperactive Qualified Code(s): F90.2 - Attention-deficit hyperactivity disorder, combined type (7) Alcohol abuse: Status: Chronic Assessment and plan: elevated liver function tests, cessation discussed, resources offered. (8) Continuous tobacco abuse: Status: Acute Assessment and plan: Nicotine replacement while hospitalized as needed. discussed with Dr. Oseguera (9) COPD (chronic obstructive pulmonary disease): Status: Chronic Assessment and plan: stable, no exacerbation. Advised tobacco cessation on admit NRT PRN discussed with Dr. Oseguera Qualifiers: COPD type: chronic bronchitis Chronic bronchitis type: mucopurulent Qualified Code(s): J41.1 - Mucopurulent chronic bronchitis Subjective Subjective Patient reports: tolerating liquids well, tolerating a regular diet, voiding w/o difficulty, flatus, diarrhea and nausea; denies vomiting, shortness of breath or fever Exam Narrative Exam Narrative: Neuro:alert and oriented to self, person, place time and situation. No neurological focal deficit, PERRLA Chest:Chest is symmetrical and normal appearance Resp: Normal respiratory pattern, speaks in full sentences, unlabored breathing, clear lung bilaterally Cardio: regular rhythm, S1, S2, no murmur, capillary refill<3 sec., bilateral radial and dorsalis pedis pulses are positive, palpable GI: Abdomen is not distended, soft and mild epigastric tenderness on palpation- no guarding , bowel sounds are present : Left Costovertebral angle tenderness- pt mentioned that it is related to her pancreas- chronic pancreatitis - lipase negative on admit Back/spine/Pelvis: No back tenderness, normal alignment Integumentary: No skin lesions or rash Extremities: strength 5/5 to bilateral lower and upper extremities Psych: RASS 0, congruent mood and normal affect. Objective Last Vital Signs Temp 36.6 C 03/23/24 07:33 Pulse 94 H 03/23/24 07:33 Resp 16 03/23/24 07:33 BP 149/96 H 03/23/24 07:33 Pulse Ox 100 03/23/24 07:33 Laboratory Results - last 24 hr 03/22/24 03/22/24 03/23/24 06:40 12:20 06:40 WBC 9.52 RBC 3.31 L Hgb 10.1 L Hct 29.5 L MCV 89 D MCH 30.5 MCHC 34.2 RDW 14.4 Plt Count 201 MPV 11.0 Immature Gran % 0.7 Neutrophils % 70.8 Lymphocytes % 16.6 Monocytes % 7.6 Eosinophils % 3.6 Basophils % 0.7 Nucleated RBC % 0.0 Absolute Neutrophils 6.74 H Absolute Lymphocytes 1.58 Absolute Monocytes 0.72 Absolute Eosinophils 0.34 Absolute Basophils 0.07 Sodium 143 Potassium 2.3 L* 2.3 L* Chloride 112 H Carbon Dioxide 20.5 L Anion Gap 10.5 BUN 1 L Creatinine 0.7 Est GFR (CKD-EPI 2020) 110.67 Glucose 133 H Calcium 7.3 L Magnesium 1.8 Total Bilirubin 1.48 H Conjugated Bilirubin 0.6 H AST 135 H ALT 100 H Alkaline Phosphatase 323 H Total Protein 4.6 L Albumin 1.3 L Stool Campylobacter PCR Negative Stool Salmonella PCR Negative Stool Shigella PCR Negative Shiga Toxin (PCR) Negative PAWSS Have you Been Recently Intoxicated or Drunk Within the Last 30 days?: No Have you Ever Experienced Previous Episodes of Alcohol Withdrawal?: No Have you ever Experienced Withdrawal Seizures?: No Have you ever Experienced Delirium Tremens(DT)s?: No Have you ever undergone Alcohol Rehabilitation Treatment (i.e, inpt ot outpatient treatment programs)?: No Have you ever Experienced Blackouts?: No Have you ever Combined Alcohol with other Downers within the last 90 days?: No Have you ever Combined Alcohol with any other Substance of Abuse during the last 90 days?: No Positive Blood Alcohol level on Presentation? [PCS.BAL]: No Evidence of Increased Autonomic Activity (i.e. HR>120, tremor, sweating, agitation, nausea)?: No Result: 0 Time Spent with Patient Time Spent with Patient: >50 minutes Time was spent: preparing to see the patient(eg.review tests), obtaining and/or reviewing separately otained hiistory, ordering medications,tests, procedures, referring, communicating with other health child care education coordinator, indepentently interpreting results, counseling the patient and care coordination
[2024-03-23] MEDS: POTASSIUM CHLORIDE 20 MEQ/100 ML BAG 50 MEQ IVINF ×2 (11:17→13:21)
[2024-03-23] MEDS: Amphet Asp/Amphet/D-Amphet 10 MG TAB 20 MG PO (13:07)
[2024-03-23] MEDS: Fosfomycin Tromethamine 3 GM PACKET PO (13:08)
[2024-03-23] MEDS: Cholestyramine/Aspartame PKT 1 EACH PO ×3 (13:10→23:27)
[2024-03-23] MEDS: Loperamide 2 MG CAP PO ×2 (13:19→23:37)
[2024-03-23 15:17] VITALS: BP 117/87; PULSE 81; RESP 15; TEMP 36.2; O2SAT 100
--- NOTE | 2024-03-23 16:30 | CHAPLAIN ---
I had a brief visit with Dolly. She was sitting on the edge of the bed. I explained my role and offered support. Dolly was pleasant, but not interested in a visit.
--- NOTE | 2024-03-23 17:20 | INITIAL_ITS ---
Date of service: 03/23/24 Time of Service: 17:20 Care Management Initial Assmt Initial Assessment Reason for Hospitalization: Hypokalemia, Diarrhea Functional Status/Living Situation Patient Presentation: Third admission in the last six weeks, Dolly is on precautions, CM unable to connect with her today. Town of Residence: [place] [facility] Resides with: Spouse (Celso Mar) Employment Status: Disabled (SSDI) Instrumental Activities of Daily Living (ADLs): Independent Medications Medication Management: No Issues/Barriers identified Advance Directives Advance Directives: Do you have an Advance Directive: N 02/25/22 13:04 AD On File at [facility]: N 02/25/22 13:04 Date Asked 03/21/24 03/21/24 19:02 AD Date Reviewed COLST On File at [facility] No 10/29/23 19:12 COLST Date Scanned Code Status Resuscitation Status Full Code Care Team Visit Care Team Role Provider Type Georgina Leyva Primary Care Provider NURSE PRACTITIONER Zaid Rasmussen MD Emergency Provider [facility] STAFF PHYSICIAN Josué Oseguera Admit Provider [facility] STAFF PHYSICIAN Attending Provider Discharge Potential Discharge Needs: PCP F/U Appt Anticipated Barriers to Discharge: None Identified Patient/Family Education Needs: Review discharge instructions, discuss Ask Me Three Plan: Anticipate Dolly will discharge home via private vehicle with her fiance when medically ready per provider. She will follow up with community providers and discharge plan of care as instructed. Dolly is connected [facility] and has take home suboxone. Last dose letter will be provided, if needed. No services are anticipated at this time. CM will follow. [facility] Active Problems (Updated 03/22/24 @ 10:35 by Tanya Shaw NP) UTI (urinary tract infection) (Acute) ADHD (Acute) Opioid use disorder in remission (Acute) Diarrhea (Acute) Alcohol abuse (Chronic) Continuous tobacco abuse (Acute) COPD (chronic obstructive pulmonary disease) (Chronic) Chronic hypokalemia (Acute) Hypokalemia (Acute) Normocytic normochromic anemia (Acute) Hypokalemia (Acute) Hypoalbuminemia (Acute) Hypomagnesemia (Acute) Bilateral edema of lower extremity (Acute) Hypocalcemia (Chronic) Insomnia (Acute) Chronic pancreatitis (Chronic) Medical History COPD (chronic obstructive pulmonary disease) Continuous tobacco abuse Alcohol abuse Diarrhea Opioid use disorder in remission Pancreatic pseudocyst Pancreatic mass Anasarca Ganglion cyst of dorsum of left wrist Colitis ADHD Opioid dependence on agonist therapy Surgical History S/P cholecystectomy and removal of two pancreatic pseudocysts Social History Smoking/Tobacco Use Status: Current every day Tobacco Type: cigarettes Smoking packs per day: 0.5 Smoking cigarettes per day: 10.0 Years smoked: 27 Smoking pack-years: 13.50 Quit status: considering quitting Counseling given: provider counseling and support medications Smoking risk assessment performed?: Yes Alcohol Intake: current Alcohol Intake frequency: a few times a month Alcohol type: beer Counseling provided: provider counseling Drug use: Occasionally Substance use type: marijuana Housing: apartment Do you feel safe at home: Yes Do you feel safe in your relationship?: Yes SDOH(Care Management) Screening Will the Patient Participate in the Screening?: Declined to provide
[2024-03-23 18:26] LABS: Potassium 3.5 mmol/L (3.5-5.1)
[2024-03-23] MEDS: traZODone 50 MG TAB PO (19:26)
[2024-03-23 19:27] VITALS: BP 138/95; PULSE 88; RESP 18; TEMP 36.4; O2SAT 100
[2024-03-23] MEDS: hydrOXYzine HCL 25 MG TAB 50 MG PO (19:34)
[2024-03-23] MEDS: Prochlorperazine 10 MG/2 ML VIAL 5 MG IVP (23:37)
[2024-03-23 23:44] VITALS: BP 128/87; PULSE 89; RESP 16; TEMP 36.7; O2SAT 93
[2024-03-24 07:04] LABS: Abs Immature Grans 0.05 10^3/uL (0.0-0.06); Absolute Basophil Count 0.06 10^3/uL (0.0-0.2); Absolute Eosinophil Count 0.28 10^3/uL (0.0-0.7); Absolute Lymphocyte Count 1.33 10^3/uL (1.2-3.4); Absolute Monocyte Count 0.73 10^3/uL (0.1-0.8); Absolute Neutrophil Count 7.18 10^3/uL (1.2-6.7); Basophils % 0.6 %; Eosinophils % 2.9 %; HCT 31.1 % (36.0-46.0); HGB 10.8 g/dL (11.2-15.7); Immature Grans % 0.5 %; Lymphocytes % 13.8 %; MCH 31.2 pg (27.0-33.0); MCHC 34.7 % (32.0-36.0); MCV 90 fL (80-95); Monocytes % 7.6 %; Neutrophils % 74.6 %; Platelet Count 218 10^3/uL (130-400); RBC 3.46 10^6/uL (3.93-5.22); RDW 14.9 % (11.7-14.6); RDW-SD 49.1 fL; WBC 9.63 10^3/uL (4.4-10.8)
[2024-03-24 07:31] LABS: Anion Gap 13.3 mmol/L (3-11); BUN 1 mg/dL (7-18); CO2 15.7 mmol/L (21.0-32.0); CREATININE 0.7 mg/dL (0.55-1.02); Calcium 7.8 mg/dL (8.5-10.1); Chloride 113 mmol/L (98-107); Estimated GFR 110.67 (mL/min/1.73m2); Glucose 142 mg/dL (74-106); Magnesium 1.8 mg/dL (1.8-2.4); Potassium 3.3 mmol/L (3.5-5.1); Sodium 142 mmol/L (136-145)
[2024-03-24] MEDS: Pantoprazole 40 MG VIAL IVP (07:42)
[2024-03-24] MEDS: Spironolactone 50 MG TAB 100 MG PO (07:42)
[2024-03-24] MEDS: Potassium Chloride 20 MEQ TABCR 40 MEQ PO ×3 (07:42→16:34)
[2024-03-24] MEDS: Normal Saline Flush 10 ML SYR IVP (07:43)
[2024-03-24 07:46] VITALS: BP 113/84; PULSE 94; RESP 16; TEMP 36.6; O2SAT 100
--- NOTE | 2024-03-24 08:54 | PDOC.CMPRO ---
Date of service: 03/24/24 Time of Service: 08:54 Care Management Progress Note Discharge Potential Discharge Needs: PCP F/U Appt Anticipated Barriers to Discharge: None Identified Patient/Family Education Needs: Review discharge instructions, discuss Ask Me Three Transportation: Private vehicle Plan: Anticipate Dolly will discharge home via private vehicle with her fiance when medically ready per provider. She will follow up with community providers and discharge plan of care as instructed. Dolly is connected with [facility] and has take home suboxone. Last dose letter will be provided, if needed. No services are anticipated at this time. CM will follow. SDOH(Care Management) Screening Will the Patient Participate in the Screening?: Declined to provide
[2024-03-24] MEDS: Cholestyramine/Aspartame PKT 1 EACH PO ×2 (11:27→16:33)
[2024-03-24 11:39] VITALS: BP 119/86; PULSE 90; RESP 15; TEMP 35.5
[2024-03-24] MEDS: Amphet Asp/Amphet/D-Amphet 10 MG TAB 20 MG PO (11:56)
[2024-03-24] MEDS: Loperamide 2 MG CAP PO (11:56)
[2024-03-24 12:01] VITALS: O2SAT 99
[2024-03-24] MEDS: Ketorolac 15 MG/ML VIAL IVP (12:20)
[2024-03-24] MEDS: POTASSIUM CHLORIDE 20 MEQ/100 ML BAG 50 MEQ IVINF (12:33)
[2024-03-24] MEDS: Potassium Chloride 20 MEQ TABCR PO (15:01)
[2024-03-24 15:23] VITALS: BP 147/97; PULSE 95; RESP 15; TEMP 36.7; O2SAT 100
[2024-03-24] MEDS: Prochlorperazine 10 MG/2 ML VIAL 5 MG IVP (15:31)
--- NOTE | 2024-03-24 16:11 | CMDISCH_ITS ---
Date of service: 03/24/24 Time of Service: 16:11 LACE Index Scoring Tool Questions: Length of Stay (in days): 2 Was the patient admitted via the E.D.?: Yes Comorbidities: Chronic Pulmonary Disease and Liver or Renal Disease E.D. Visits: 7 Answers: Total Score: 14 Risk of Readmission: High Risk Care Management Discharge Plan Reason for Hospitalization: hypokalemia Discharge Plan: Dolly will be discharged home with no new services. She will follow up with her community providers and plan of care and transport with family. Patient/Family Education Needs: Review discharge instructions, limitations, f ollow up plan, discuss Ask Me Three SDOH Health Related Social Needs: Health related social needs details Resume BAART subox one DAVID treatment
[2024-03-24 16:53] LABS: Potassium 3.6 mmol/L (3.5-5.1)
--- NOTE | 2024-03-24 16:59 | DSE_ITS ---
Date of service: 03/24/24 Time of Service: 16:59 DS: Diagnosis Discharge Diagnosis (1) UTI (urinary tract infection): Status: Acute (2) Hypokalemia: Status: Acute (3) Hypomagnesemia: Status: Acute (4) Diarrhea: Status: Acute (5) Opioid use disorder in remission: Status: Acute (6) ADHD: Status: Acute (7) Alcohol abuse: Status: Chronic (8) Continuous tobacco abuse: Status: Acute (9) COPD (chronic obstructive pulmonary disease): Status: Chronic Discharge Plan Disposition Patient Disposition: Home Condition: Improving Discharge Details Reason For Visit: Hypokalemia,Diarrhea Admit Date/Time: 03/22/24 10:24 Admit Provider: Josué Oseguera Attending Provider: Josué Oseguera Primary Care Provider: Georgina Leyva Hospital Course Hospital Course: This 43 years old female patient presented to the ED at [facility] on 03/21/2024 with chief complaints of weakness, diarrhea, and low potassium. Patient reported 4-7 episode of diarrhea daily over the past month. The patient has been taking large oral supplement of potassium as ordered by her PCP with blood drawn on Wednesday showing a potassium level of 1.7. The patient has been referred to a gastroenterology specialist in the past but reported that no contact was made. The patient has past medical history of chronic pancreatitis, pancreatic mass, ADHD, colitis, opioid induced disorder in remission, alcohol abuse with daily drinking of a couple of beers, chronic diarrhea, COPD, and is status-post cholecystectomy. On arrival the patient was tachycardic with heart rate 115; EKG did not show any signs of injury. Workup in the ED showed a potassium of 2.0 which jamel to 2.5 with supplementation, magnesium level of 1.5 rising to 2.2 with supplementation mild transaminitis was observed. The hospitalist was consulted and the patient was admitted to the medical surgical floor for evaluation and management of hypokalemia, chronic diarrhea, hypomagnesemia. During the stay, the patient continued to receive potassium and magnesium transition with improvement of potassium level to 3.6 and magnesium level to 1.8. Transaminitis improved on subsequent testing. The patient was started on cholestyramine in the setting of transaminitis, chronic pancreatitis and cholecystectomy history; elastase level was pending with expected follow-up by primary care practitioner to decide if the patient is a candidate for pancreatic enzyme orally. General surgery referral was initiated for chronic diarrhea as the patient mentioned that she never had a colonoscopy. GI consult referral was also initiated with [facility]. The patient will have to follow-up with her primary care practitioner within 7 days of discharge and should call them on Wednesday if they have not reached back to her. The patient will have to continue her oral supplementation of potassium and magnesium as well as cholestyramine. The patient mention being nauseous and is requesting antinausea med for home short supply of Compazine will be provided for the patient to take only as needed for nausea. Urine had grown E. coli which was pansensitive and the patient was treated inpatient with 1 dose of oral fosfomycin. The patient was counseled on alcohol drinking and would like to get an oral deterrent to prevent her from drinking; PCP had offered in the past and patient was advised to regroup with primary care practitioner to decide on such a regimen. Discussed with Dr. Amaya Home Meds and New Rx's Prescriptions: New potassium chloride [Klor-Con M20] 20 mEq Tablet,Er Particles/Crystals 40 meq PO AC & HS Qty: 80 0RF Rx Instructions: Take with food cholestyramine-aspartame [Prevalite] 4 gram Powder In Packet 1 packet PO 0700,1100,1600,2000 Qty: 60 0RF loperamide 2 mg Capsule 2 mg PO Q8H PRNQty: 30 0RF pantoprazole [Protonix] 40 mg tablet,delayed release (DR/EC) 40 mg PO DAILY Qty: 30 0RF prochlorperazine maleate [Compazine] 5 mg tablet 5 mg PO TID PRNQty: 30 0RF Continued trazodone 50 mg tablet 50 mg PO HS Patient Comments: take 1 tablet by mouth at bedtime spironolactone 50 mg tablet 100 mg PO BID diphenoxylate-atropine [Lomotil] 2.5-0.025 mg tablet 1 tab PO BID PRN (Reason: diarrhea) Qty: 14 0RF dextroamphetamine-amphetamine 30 mg capsule,extended release 24hr 30 mg PO DAILY Patient Comments: TAKE ONE CAPSULE BY MOUTH EVERY MORNING dextroamphetamine-amphetamine 20 mg tablet 20 mg PO DAILY Patient Comments: TAKE ONE TABLET BY MOUTH EVERY DAY IN THE AFTERNOON albuterol sulfate 90 mcg/actuation HFA aerosol inhaler 1 inh INHALATION Q4H PRN Brixadi 64 mg/0.18 mL solution, extended rel syringe 64 mg SUBCUT .monthly Discontinued potassium chloride 20 mEq tablet extended release 40 meq PO BIDWMEAL Qty: 0 0RF Discharge Instructions Referrals: GASTRO[facility]OLOGY,[facility] [place] [OTHER] - (Known patient by this service from chronic pancreatitis, now with ongoing diarrhea for months and electrolyte imbalances. Patient report that past referrals had not resulted in contact.) GENERAL SURG,[facility] [OTHER] - (Ongoing new diarrhea for multiple months, never had a colonoscopy; chronic hypokalemia, hypomagnesemia ) Georgina Leyva [Primary Care Provider] - (Follow up with PCP within 7 days of discharge- Call on Wednesday to be seen, please ) Activity:: Activity as Tolerated Equipment/Supplies:: No Equipment Needed Diet:: As Tolerated Discharge Orders Discharge Orders: Discharge Order (Routine); Ordered 03/24/24 Ordered By: Melony Loya DS: Summary Time Spent with Patient providing and/or coordinating discharge services: Greater than 30 minutes Status at Discharge Functional status at discharge: independent ambulation Overall status at discharge: patient is progressing back to baseline Mental Status: mental status grossly normal Speech and Movement: speech and movement normal Mood: congruent mood Affect: normal affect Quality:SDOH Health Related Social Needs: Health related social needs details [facility] Exam Narrative Exam Narrative: Neuro:alert and oriented to self, person, place time and situation. No neurological focal deficit Resp:Clear lung bilaterally Cardio: Tele SR HR 75 ,regular rhythm, S1, S2, no murmur GI: Abdomen is not distended, soft and mild epigastric tenderness on palpation- no guarding , bowel sounds are present :no bladder distension Integumentary: No skin lesions or rash Extremities: strength 5/5 to bilateral lower and upper extremities Psych: RASS 0, congruent mood and normal affect. Psych Mental Status: mental status grossly normal Speech and Movement: speech and movement normal Mood: congruent mood Affect: normal affect DS: Data Vitals/I&O Vitals and I&O: Vital Signs Temperature 36.7 C 03/24/24 15:23 Temperature Source Skin 03/24/24 15:23 Pulse 95 H 03/24/24 15:23 Pulse Rhythm Regular 03/22/24 14:19 Pulse 97 H 03/22/24 13:10 Respiratory Rate 15 03/24/24 15:23 Respiratory Effort Normal, Non-Labored 03/22/24 14:19 Respiratory Depth Normal 03/22/24 14:19 Respiratory Pattern Normal 03/22/24 14:19 Blood Pressure 147/97 H 03/24/24 15:23 Blood Pressure Mean 99 03/22/24 11:31 Pulse Oximetry 100 03/24/24 15:23 Oxygen Delivery Method Room Air 03/24/24 15:23 Oxygen Flow Rate 0 03/24/24 15:23 Pain Level 0 03/24/24 15:23 Intake & Output 03/23/24 03/24/24 03/24/24 23:59 11:59 23:59 Intake Total 422 / 1083 222 / 222 Output Total 300 / 700 300 / 300 Balance 122 / 383 222 / -78 -300 / -78 Intake: IV 200 / 400 Oral 222 / 683 222 / 222 Output: Urine 200 / 200 Stool 100 / 100 Emesis 300 / 300 Other: Urine Color Yellow Urine Appearance Clear Urine Odor None Comment pt urinated at this time. x3 unknown void. patient voiding independently in room. Pt denies any foul odor, burning or trouble urinating. Stool Size Moderate Stool Characteristics Liquid Voiding Methods Toilet Toilet Data Completed and Pending Labs on day of discharge: Labs from last 24 hours 03/24/24 03/24/24 03/23/24 16:40 06:48 18:04 WBC 9.63 RBC 3.46 L Hgb 10.8 L Hct 31.1 L MCV 90 MCH 31.2 MCHC 34.7 RDW 14.9 H Plt Count 218 MPV 11.0 Immature Gran % 0.5 Neutrophils % 74.6 Lymphocytes % 13.8 Monocytes % 7.6 Eosinophils % 2.9 Basophils % 0.6 Nucleated RBC % 0.0 Absolute Neutrophils 7.18 H Absolute Lymphocytes 1.33 Absolute Monocytes 0.73 Absolute Eosinophils 0.28 Absolute Basophils 0.06 Sodium 142 Potassium 3.6 3.3 L 3.5 D Chloride 113 H Carbon Dioxide 15.7 L Anion Gap 13.3 H BUN 1 L Creatinine 0.7 Est GFR (CKD-EPI 2020) 110.67 Glucose 142 H Calcium 7.8 L Magnesium 1.8 PFSH All Active Problems (Updated 03/24/24 @ 16:29 by Melony Loya APRN) UTI (urinary tract infection) (Acute) ADHD (Acute) Opioid use disorder in remission (Acute) Diarrhea (Acute) Alcohol abuse (Chronic) Continuous tobacco abuse (Acute) COPD (chronic obstructive pulmonary disease) (Chronic) Chronic hypokalemia (Acute) Hypokalemia (Acute) Normocytic normochromic anemia (Acute) Hypokalemia (Acute) Hypoalbuminemia (Acute) Hypomagnesemia (Acute) Bilateral edema of lower extremity (Acute) Hypocalcemia (Chronic) Insomnia (Acute) Chronic pancreatitis (Chronic) Medical History COPD (chronic obstructive pulmonary disease) Continuous tobacco abuse Alcohol abuse Diarrhea Opioid use disorder in remission Pancreatic pseudocyst Pancreatic mass Anasarca Ganglion cyst of dorsum of left wrist Colitis ADHD Opioid dependence on agonist therapy Surgical History S/P cholecystectomy and removal of two pancreatic pseudocysts Social History Smoking/Tobacco Use Status: Current every day Tobacco Type: cigarettes Smoking packs per day: 0.5 Smoking cigarettes per day: 10.0 Years smoked: 27 Smoking pack-years: 13.50 Quit status: considering quitting Counseling given: provider counseling and support medications Smoking risk assessment performed?: Yes Alcohol Intake: current Alcohol Intake frequency: a few times a month Alcohol type: beer Counseling provided: provider counseling Drug use: Occasionally Substance use type: marijuana Housing: apartment Do you feel safe at home: Yes Do you feel safe in your relationship?: Yes Time Spent with Patient Time Spent with Patient: >85 minutes Time was spent: preparing to see the patient(eg.review tests), obtaining and/or reviewing separately otained hiistory, ordering medications,tests, procedures, referring, communicating with other health respiratory care program director, indepentently interpreting results, counseling the patient and care coordination
== END 2024-03-24 17:32 | disposition home or self-care (01) ==
LOC: ER 03-22 10:35 → MS 03-22 14:17
PROVIDERS: Nurse Practitioner Acute Care; Registered Nurse Emergency; Student in an Organized Health Care Education/Training Program; Admitting Provider Family Medicine; Emergency Provider Emergency Medicine; PCP Nurse Practitioner Family; Visit Provider Family Medicine
DX: N39.0 Urinary tract infection, site not specified (principal); E87.6 Hypokalemia; E83.42 Hypomagnesemia; K59.1 Functional diarrhea; F11.91 Opioid use, unspecified, in remission; F90.2 Attention-deficit hyperactivity disorder, combined type; F10.10 Alcohol abuse, uncomplicated; F17.210 Nicotine dependence, cigarettes, uncomplicated; J41.1 Mucopurulent chronic bronchitis; D64.9 Anemia, unspecified; R60.0 Localized edema; K86.1 Other chronic pancreatitis; G47.00 Insomnia, unspecified; E88.09 Other disorders of plasma-protein metabolism, not elsewhere classified
CPT/HCPCS: 00123; 36415; 80048; 80053; 83519; 83690; 87077; 87493; 87505; 93005; 96361; 96365; 96366; 96375; 96376; 99291; 74177; 76705; 81003; 81015; 82248; 83735; 84132; 84443; 84484; 85025; 87086; 87177; 87186; 93010; 99222; 99233; 99239; G0378; J0780; J1885; J2470; J3475; J3480; J3490

== ENCOUNTER 2024-03-30 15:32 | Outpatient (CLI) | payer MEDICARE, SELFPAY ==
[2024-03-30 15:26] LABS: Magnesium 1.8 mg/dL (1.8-2.4)
[2024-03-30 15:28] LABS: Potassium 2.5 mmol/L (3.5-5.1)
== END 2024-03-30 15:33 | disposition home or self-care (01) ==
LOC: LBO 15:32
PROVIDERS: PCP Nurse Practitioner Family; Visit Provider Nurse Practitioner Family
DX: E56.1 Deficiency of vitamin K (principal)
CPT/HCPCS: 36415; 83735; 84132

== ENCOUNTER 2024-03-31 14:34 | Inpatient (IN) | payer MEDICARE, SELFPAY ==
[2024-03-31] VITALS (72 sets, daily range): BP systolic 99–127; BP diastolic 57–83; PULSE 99–125; RESP 10–28; TEMP 36.6–37.7; O2SAT 94–100
[2024-03-31] MEDS: Ibuprofen 600 MG TAB PO (15:15)
[2024-03-31 15:44] LABS: COVID-19 PCR Negative (Negative); Influenza A PCR Negative (Negative); Influenza B PCR Negative (Negative); RSV PCR Negative (Negative)
[2024-03-31 15:45] LABS: Source Nasopharynx
--- NOTE | 2024-03-31 15:46 | DI.RAD_ITS ---
Exam(s) XR CHEST 2V PA LATERAL EXAM: XR CHEST 2V PA LATERAL CLINICAL HISTORY: cough. TECHNIQUE: 2D digital imaging was performed. COMPARISON: CR,XR XR PORTABLE CHEST AP from 02/29/2024 FINDINGS: 2 views: Heart size is normal. The mediastinum is not widened. There are now patchy infiltrates throughout both lung nunez, most evident in the lower lobes but als o involving both upper lobes. There are no pleural effusions. No pneumothorax. IMPRESSION: Significant bilateral infiltrates are now evident. There are no pleural effusions. DATA REPOSITORY: RADIATION DOSE DELIVERED:
--- NOTE | 2024-03-31 16:06 | ED.GENADUL_ITS ---
Discharge Plan Discharge Details Chief Complaint: RespSymp Primary Care Provider: Georgina Leyva ED Provider: Blade Kuo Home Meds and New Rx's Prescriptions: No Action trazodone 50 mg tablet 50 mg PO HS Patient Comments: take 1 tablet by mouth at bedtime spironolactone 50 mg tablet 100 mg PO BID diphenoxylate-atropine [Lomotil] 2.5-0.025 mg tablet 1 tab PO BID PRN (Reason: diarrhea) Qty: 14 0RF dextroamphetamine-amphetamine 30 mg capsule,extended release 24hr 30 mg PO DAILY Patient Comments: TAKE ONE CAPSULE BY MOUTH EVERY MORNING potassium chloride [Klor-Con M20] 20 mEq Tablet,Er Particles/Crystals 40 meq PO AC & HS Qty: 80 0RF Rx Instructions: Take with food cholestyramine-aspartame [Prevalite] 4 gram Powder In Packet 1 packet PO 0700,1100,1600,2000 Qty: 60 0RF loperamide 2 mg Capsule 2 mg PO Q8H PRNQty: 30 0RF pantoprazole [Protonix] 40 mg tablet,delayed release (DR/EC) 40 mg PO DAILY Qty: 30 0RF prochlorperazine maleate [Compazine] 5 mg tablet 5 mg PO TID PRNQty: 30 0RF azithromycin 250 mg tablet 250 mg PO DAILY Patient Comments: TAKE 2 TABLETS BY MOUTH ONE DOSE ON DAY 1, THEN 1 TABLET DAILY ON DAYS 2-5 Rx Instructions: for two more days done 04/02/24 albuterol sulfate 90 mcg/actuation HFA aerosol inhaler 1 inh INHALATION Q4H PRN Brixadi 64 mg/0.18 mL solution, extended rel syringe 64 mg SUBCUT .monthly HPI General Mode of arrival: ambulatory . Date/Time Provider Initiated Documentation: 03/31/24 15:02 . Limitations to Documentation: no limitations . Information obtained by: patient . HPI Narrative: 44-year-old female with multiple medical problems including chronic smoking, opioid use disorder in remission, here today with chief complaint of shortness of breath. Patient notes she has had nonproductive cough and fever over the past few days. Shortness of breath has been moderate. She states her primary care nurse practitioner diagnosed her with bronchitis and started her on azithromycin 3 days ago which she has been taking as prescribed without improvement. She also notes associated fullness in her right ear. Related Data Home Medications ?Medication ?Instructions ?Recorded ?Confirmed trazodone 50 mg tablet 50 mg PO HS 05/31/23 03/31/24 albuterol sulfate 90 mcg/actuation 1 inh inhalation Q4H PRN 02/05/24 03/31/24 aerosol inhaler buprenorphine 64 mg/0.18 mL 64 mg subcut .monthly 02/05/24 03/31/24 solution,exten.rel.subcutaneous syringe (Brixadi Monthly) spironolactone 50 mg tablet 100 mg PO BID 03/01/24 03/31/24 diphenoxylate-atropine 2.5 1 tab PO BID PRN diarrhea #14 tabs 03/03/24 03/31/24 mg-0.025 mg tablet (Lomotil) dextroamphetamine-amphetamine ER 30 mg PO DAILY 03/22/24 03/31/24 30 mg 24hr capsule,extend release cholestyramine-aspartame 4 gram 1 packet PO 0700,1100,1600,199903/24/24 03/31/24 oral powder for susp in a packet #60 ea (Prevalite) loperamide 2 mg capsule 2 mg PO Q8H PRN #30 caps 03/24/24 03/31/24 pantoprazole 40 mg tablet,delayed 40 mg PO DAILY #30 tabs 03/24/24 03/31/24 release (Protonix) potassium chloride 20 mEq 40 meq (2 x 20 mEq) PO AC & HS #80 03/24/24 03/31/24 tablet,extended tabs release(part/cryst) (Klor-Con M) prochlorperazine maleate 5 mg 5 mg PO TID PRN #30 tabs 03/24/24 03/31/24 tablet (Compazine) azithromycin 250 mg tablet 250 mg PO DAILY 03/31/24 03/31/24 Previous Rx's ?Medication ?Instructions ?Recorded diphenoxylate-atropine 2.5 1 tab PO BID PRN diarrhea #14 tabs 03/03/24 mg-0.025 mg tablet (Lomotil) cholestyramine-aspartame 4 gram 1 packet PO 0700,1100,1600,199903/24/24 oral powder for susp in a packet #60 ea (Prevalite) loperamide 2 mg capsule 2 mg PO Q8H PRN #30 caps 03/24/24 pantoprazole 40 mg tablet,delayed 40 mg PO DAILY #30 tabs 03/24/24 release (Protonix) potassium chloride 20 mEq 40 meq (2 x 20 mEq) PO AC & HS #80 03/24/24 tablet,extended tabs release(part/cryst) (Klor-Con M) prochlorperazine maleate 5 mg 5 mg PO TID PRN #30 tabs 03/24/24 tablet (Compazine) Allergies Allergy/AdvReac Type Severity Reaction Status Date / Time No Known Allergies Allergy Unverified 03/31/24 14:44 General Stated Complaint: RespSymp ADRIANA: 3 Review of Systems All systems reviewed & are unremarkable except as noted in HPI and below Constitutional Constitutional: Reports fever(s) Respiratory Respiratory: Reports cough Exam Const General: cooperative and no acute distress HENMT Mouth: moist mucous membranes Eyes Conjunctivae: normal conjunctivae Sclera: normal sclerae Neck Neck: trachea midline and supple Resp Effort & Inspection: able to speak in complete sentences Auscultation: rales bilaterally and rhonchi upper bilaterally Cardio Rhythm: regular rhythm GI Palpation: soft, not firm, no guarding, no masses, not rigid and nontender Neuro General: patient alert, patient awake and tone normal Extrem General: no calf tenderness and no edema Course Vital Signs Vital signs: Vital Signs Temperature 37.7 C H 03/31/24 14:42 Pulse 125 H 03/31/24 14:42 Respiratory Rate 16 03/31/24 14:42 Blood Pressure 100/66 03/31/24 14:42 Pulse Oximetry 94 03/31/24 14:42 Temperature 37.7 C H 03/31/24 14:42 Temperature Source Oral 03/31/24 14:42 Pulse 125 H 03/31/24 14:42 Respiratory Rate 16 03/31/24 14:42 Respiratory Effort Normal 03/31/24 15:44 Respiratory Depth Normal 03/31/24 15:44 Blood Pressure 100/66 03/31/24 14:42 Blood Pressure Position Sitting 03/31/24 14:42 Pulse Oximetry 97 03/31/24 15:44 Oxygen Delivery Method Room Air 03/31/24 15:44 Oxygen Flow Rate 0 03/31/24 14:42 Pain Level 7 03/31/24 14:42 Lab/Test Results Lab/Test Results: Laboratory Tests Range/Units 03/31/24 03/31/24 14:59 15:04 COVID-19 Source Nasopharynx Cancelled SARS-CoV-2 (PCR) (Negative) Negative Cancelled Influenza Type A (PCR) (Negative) Negative Cancelled Influenza Type B (PCR) (Negative) Negative Cancelled RSV (PCR) (Negative) Negative Cancelled Medical Decision Making 1615 -- 44-year-old male smoker with charted history of COPD (patient not aware of this diagnosis), recently hospitalized for diarrhea, weakness, hypokalemia, UTI, here today with nonproductive cough over the past few days, not responding to azithromycin. Patient is saturating in the mid to upper 90s. She is febrile and tachycardic. Initial plan for p.o. fluid resuscitation and ibuprofen. Chest x-ray was reviewed and interpreted by radiology: There are now patchy infiltrates throughout both lung nunez, most evident in the lower lobes but also involving both upper lobes. COVID, influenza and RSV negative. Patient reassessed and continues to be tachycardic. Blood pressure low end of normal on arrival compared to prior higher blood pressures during hospitalization. Consider sepsis. Plan to check labs including CBC lactate. I will send blood cultures. Consider viral process but will add broad-spectrum antibiotic coverage with concern for potential multifocal bacterial pneumonia. I will initiate coverage with cefepime 2 g IV. I will give IV fluid bolus 1 L LR. Quality:SDOH Health Related Social Needs: Health related social needs details Resume [place] subox one DAVID treatment PFSH All Active Problems Bowel habit changes (Acute) Dysphagia (Acute) ADHD (Acute) Opioid use disorder in remission (Acute) Diarrhea (Acute) Alcohol abuse (Chronic) Continuous tobacco abuse (Acute) COPD (chronic obstructive pulmonary disease) (Chronic) Chronic hypokalemia (Acute) Normocytic normochromic anemia (Acute) Hypokalemia (Acute) Hypoalbuminemia (Acute) Bilateral edema of lower extremity (Acute) Hypocalcemia (Chronic) Insomnia (Acute) Chronic pancreatitis (Chronic) Medical History Pancreatic pseudocyst Pancreatic mass Anasarca Ganglion cyst of dorsum of left wrist Colitis Opioid dependence on agonist therapy Surgical History S/P cholecystectomy and removal of two pancreatic pseudocysts Social History Smoking/Tobacco Use Status: Current every day Tobacco Type: cigarettes Smoking packs per day: 0.5 Smoking cigarettes per day: 10.0 Years smoked: 27 Smoking pack-years: 13.50 Quit status: considering quitting Counseling given: provider counseling and support medications Smoking risk assessment performed?: Yes Alcohol Intake: current Alcohol Intake frequency: a few times a month Alcohol type: beer Counseling provided: provider counseling Drug use: Occasionally Substance use type: marijuana Housing: apartment Do you feel safe at home: Yes Do you feel safe in your relationship?: Yes
--- NOTE | 2024-03-31 17:02 | W.EDPROG ---
Date of service: 03/31/24 Time of Service: 17:03 Medical Decision Making Care assumed from off going provider. Patient is a 44-year-old female with a history of alcohol and opiate use with recent admission to the hospital. Was discharged 7 days ago. Returns today with shortness of breath. He viral testing negative. Chest x-ray reveals bilateral infiltrates. At this time, lab work is pending. 1830 Lab work reviewed and there are multiple concerns. The patient has significant leukocytosis at 32 with left shift. Her anemia is mild and stable with consistent values. She has significant elevation of lactic acid, ESR and CRP. Given the concerns for sepsis, additional IV fluids have been ordered. The patient also has persistent hypokalemia and IV replacement for this has been ordered. Her urinalysis does not reveal infection. Given her recent hospitalization and concern for pneumonia on imaging and sepsis, I have broadened her antibiotic coverage to include meropenem and vancomycin. Cultures have been sent. Given the appearance of the chest x-ray, I we will get a CT scan. Although the medical record states that she has an opiate use disorder, the patient adamantly declined denies IV drug use. States that she only snorted. I have discussed with the hospitalist who accepts the patient for admission. Quality:SDOH Health Related Social Needs: Health related social needs details Resume [facility] suboxone DAVDI treatment Sign Out Sign Out Data: Sign Out Comment: 44-year-old female here with nonproductive cough over the past few days, treated over the past 3 days with azithromycin without improvement, found to have multifocal pneumonia on the chest x-ray. Patient persistently tachycardic despite ibuprofen and p.o. fluid resuscitation. Plan at this time is to follow-up on labs including CBC and lactate. Given concern for potential sepsis, no response to azithromycin, I will start cefepime 2 g. Disposition pending reassessment and labs. Last updated by Blade Kuo MD at 03/31/24 16:37 Discharge Plan Disposition Patient Disposition: Admit to [facility] Condition: Fair Discharge Details Chief Complaint: RespSymp Clinical Impression: Sepsis, Pneumonia Primary Care Provider: Georgina Leyva ED Provider: Juana Silver Home Meds and New Rx's Prescriptions: No Action trazodone 50 mg tablet 50 mg PO HS Patient Comments: take 1 tablet by mouth at bedtime spironolactone 50 mg tablet 100 mg PO BID diphenoxylate-atropine [Lomotil] 2.5-0.025 mg tablet 1 tab PO BID PRN (Reason: diarrhea) Qty: 14 0RF dextroamphetamine-amphetamine 30 mg capsule,extended release 24hr 30 mg PO DAILY Patient Comments: TAKE ONE CAPSULE BY MOUTH EVERY MORNING potassium chloride [Klor-Con M20] 20 mEq Tablet,Er Particles/Crystals 40 meq PO AC & HS Qty: 80 0RF Rx Instructions: Take with food cholestyramine-aspartame [Prevalite] 4 gram Powder In Packet 1 packet PO 0700,1100,1600,2000 Qty: 60 0RF loperamide 2 mg Capsule 2 mg PO Q8H PRNQty: 30 0RF pantoprazole [Protonix] 40 mg tablet,delayed release (DR/EC) 40 mg PO DAILY Qty: 30 0RF prochlorperazine maleate [Compazine] 5 mg tablet 5 mg PO TID PRNQty: 30 0RF azithromycin 250 mg tablet 250 mg PO DAILY Patient Comments: TAKE 2 TABLETS BY MOUTH ONE DOSE ON DAY 1, THEN 1 TABLET DAILY ON DAYS 2-5 Rx Instructions: for two more days done 04/02/24 albuterol sulfate 90 mcg/actuation HFA aerosol inhaler 1 inh INHALATION Q4H PRN Brixadi 64 mg/0.18 mL solution, extended rel syringe 64 mg SUBCUT .monthly
[2024-03-31 17:37] LABS: Lactate 2.9 mmol/L (0.6-1.4)
[2024-03-31 17:39] LABS: HCT 26.4 % (36.0-46.0); HGB 9.3 g/dL (11.2-15.7); MCH 30.7 pg (27.0-33.0); MCHC 35.2 % (32.0-36.0); MCV 87 fL (80-95); MPV 10.5 fL (8.0-11.0); Platelet Count 302 10^3/uL (130-400); RBC 3.03 10^6/uL (3.93-5.22); RDW-SD 48.4 fL
--- NOTE | 2024-03-31 17:45 | DI.CT_ITS ---
Exam(s) CT CHEST W EXAM: CT CHEST W CLINICAL HISTORY: fever pna. TECHNIQUE: Multi planar reconstructions were performed. CONTRAST MATERIAL: Omnipaque 350; 75 cc COMPARISON: CT CT CHEST PE CTA from 10/26/[address] ABDOMEN PELVIS W from 03/21/2024 CR XR CHEST 2V PA LATERAL from 03/31/2024 FINDINGS: CHEST: LUNGS: There are patchy infiltrates throughout both lung nunez including ground-glass infiltrates an d confluent infiltrate, with most confluent infiltrate being in the left lower lobe posterior basal s egment. There is involvement of all lobes of both lungs. There are no findings in trachea and brandon tem bronchi. There are no pleural effusions. MEDIASTINUM: CIS slightly enlarged hilar lymph nodes are seen bilaterally. Also subcarinal lymph nod es. There is no adenopathy in the anterior mediastinal fat. Visualized thyroid unremarkable. CARDIAC: Heart size is normal. There is no pericardial effusion.Caliber of the thoracic aorta is wit hin normal limits. VISUALIZED UPPER ABDOMEN:Partially visualized liver is hypodense implying steatosis. Pancreas is par tially included in the field of view and again reveals cysts large pseudocyst in the pancreatic head and tail region. Please note that this patient also had thrombosis of the splenic vein documented on the recent CT scan of the abdomen performed 03/22/2024. See that separate report OSSEOUS: No significant osseous lesions.No fractures.. IMPRESSION: 1. Extensive patchy bilateral infiltrates as well as areas of ground-glass infiltrate throughout both lungs involving all lobes of both lungs. 2. No pleural effusions. 3. Incidental upper abdominal findings as above. Please see abdominal CT scan report of 03/21/24. Th at CT scan revealed this numerous significant findings in the abdomen. Report called by myself to ER physician 03/31/2024 at 7:27 p.m. RADIATION DOSE DELIVERED: 96.98mGy.cm Total DLP DATA REPOSITORY: All CT scans at this facility are submitted to the National Radiology Data Registry (NRDR) Dose Index Registry (DIR) with the [employer] [place] [employer] (A[employer]). RADIATION OPTIMIZATION: All CT scans at this facility use at least one of these dose optimization te chniques: automated exposure control; mA and/or kV adjustment per patient size (includes targeted exa ms where dose is matched to clinical indication); or iterative reconstruction.
[2024-03-31 17:51] LABS: WBC 32.35 10^3/uL (4.4-10.8)
[2024-03-31] MEDS: Lactated Ringers 1,000 ML 1000 ML IV ×2 (17:51→17:52)
[2024-03-31 17:55] LABS: Absolute Lymphocyte Count 2.59 10^3/uL (1.2-3.4); Absolute Monocyte Count 2.59 10^3/uL (0.1-0.8); Absolute Neutrophil Count 26.53 10^3/uL (1.2-6.7); Bands % 6 %; Metamyelocytes % 1; Myelocytes % 1
[2024-03-31 17:56] LABS: Diff Comment Manual Differential; RBC Morphology Normal
[2024-03-31 18:05] LABS: ESR 23 mm/hr (0-20)
[2024-03-31 18:11] LABS: Lactate 2.3 mmol/L (0.6-1.4)
[2024-03-31 18:11] LABS: ALT 28 U/L (14-59); AST 31 U/L (15-37); Albumin 1.2 g/dL (3.4-5.0); Alkaline Phosphatase 203 U/L (46-116); Anion Gap 10.3 mmol/L (3-11); BUN 3 mg/dL (7-18); Bilirubin, Total 0.63 mg/dL (0.2-1.0); CO2 19.7 mmol/L (21.0-32.0); CREATININE 0.7 mg/dL (0.55-1.02); Calcium 8.4 mg/dL (8.5-10.1); Chloride 105 mmol/L (98-107); Estimated GFR 109.98 (mL/min/1.73m2); Glucose 102 mg/dL (74-106); Sodium 135 mmol/L (136-145); Total Protein 4.9 g/dL (6.4-8.2)
[2024-03-31 18:13] LABS: Potassium 2.4 mmol/L (3.5-5.1)
[2024-03-31 18:13] LABS: C-Reactive Protein 10.33 mg/dL (<or=0.5)
[2024-03-31] MEDS: CEFEPIME 2 GM in Normal Saline 100 ML IVPB (18:16)
[2024-03-31 18:29] LABS: Bilirubin Negative (Negative); Blood Negative (Negative); Clarity Clear (Clear); Glucose Negative (Negative); Ketones Negative (Negative); Leukocyte Esterase Negative (Negative); Nitrite Negative (Negative); Specific Gravity 1.015 (1.005-1.025); Urobilinogen 0.2 mg/dL (Up to 0.2)
[2024-03-31] MEDS: Normal Saline - Diluent 50 ML VIAL IJ (18:57)
[2024-03-31] MEDS: Omnipaque 350 MG/ML 100 ML BTL IJ (18:57)
[2024-03-31] MEDS: POTASSIUM CHLORIDE 10 MEQ/100 ML BAG 100 MEQ IVINF ×2 (19:18→20:30)
[2024-03-31] MEDS: MEROPENEM 1 GM in Normal Saline 100 ML IVPB (19:18)
[2024-03-31] MEDS: VANCOMYCIN 1,000 MG in Normal Saline 250 ML 250 MG IVPB (19:26)
--- NOTE | 2024-03-31 20:31 | HPE_ITS ---
Date of service: 03/31/24 Time of Service: 20:31 Assessment and Plan Assessment and plan (1) Sepsis: Status: Acute Assessment and plan: Meet sepsis criteria with tachycardia fever and low blood pressures. She responded to IV fluid bolus in the emergency room. Given her history of IV drug use there is concern for MRSA. Broad antibiotic coverage including cefepime, vancomycin, meropenem. Will admit to the ICU for close monitoring. Blood cultures are pending. (2) Pneumonia: Status: Acute Assessment and plan: Bilateral upper and lower lobe infiltrates. These have blossomed in the last month. Patient was hospitalized 1 week ago and there is concern for hospital- acquired pneumonia in a patient who has a history of IV drug use. Broad- spectrum antibiotic coverage. Interestingly her oxygenation is fine with a sat of 99% on room air. Given her tobacco use history will continue updrafts with albuterol and DuoNebs as needed. (3) ADHD: Status: Acute Assessment and plan: Continue on the dextroamphetamine daily. Qualifiers: Attention deficit-hyperactivity disorder type: combined inattentive- hyperactive Qualified Code(s): F90.2 - Attention-deficit hyperactivity disorder, combined type (4) Opioid use disorder in remission: Status: Acute Assessment and plan: She gets monthly Brixadi injections. Her next is due on 04/05/2024. (5) Continuous tobacco abuse: Status: Acute Assessment and plan: Ongoing tobacco use disorder. Says she has not smoked in about 48 hours. She would like nicotine replacement which was ordered. (6) Chronic hypokalemia: Status: Acute Assessment and plan: Patient has chronic hypokalemia. She is on oral replacement. She missed doses yesterday and today. She is getting oral and IV replacement. Will monitor on telemetry. History of Present Illness History of Present Illness Chief Complaint: Cough shortness of breath N arrative: 46-year-old woman just discharged from [facility] on 03/25/2024. She had been admitted at that time with weakness diarrhea and hypokalemia. Soon after discharge she began to have a cough and shortness of breath. She saw her PCP on 03/28/2024 and was treated with azithromycin for bronchitis. Since that time she has had a fever and felt worse. In the emergency room she had an elevated heart rate and some low blood pressures. A white count was elevated at 32,000. Lactate 2.9 came down to 2.3. Potassium was low at 2.4. Chest x-ray showed significant bilateral infiltrates that were new since 1 week prior. She is being treated for hospital associated pneumonia with cefepime, vancomycin, meropenem. She is admitted to the ICU. Review of Systems Narrative: She is complaining of cough and shortness of breath. She is not having chest pain or pressure. The cough is productive of a clear sputum. She has had fevers, not measured. Previous diarrhea apparently has cleared up. She is having no abdominal pain no dysuria. No new musculoskeletal complaints. PFSH All Active Problems (Updated 03/31/24 @ 20:39 by Zaid Rios MD) Pneumonia (Acute) Sepsis (Acute) ADHD (Acute) Opioid use disorder in remission (Acute) Continuous tobacco abuse (Acute) Chronic hypokalemia (Acute) Medical History (Updated 03/31/24 @ 20:39 by Zaid Rios MD) Chronic pancreatitis Insomnia Hypocalcemia Bilateral edema of lower extremity Hypoalbuminemia Hypokalemia Normocytic normochromic anemia COPD (chronic obstructive pulmonary disease) Alcohol abuse Diarrhea Dysphagia Bowel habit changes Pancreatic pseudocyst Pancreatic mass Anasarca Ganglion cyst of dorsum of left wrist Colitis Opioid dependence on agonist therapy Surgical History S/P cholecystectomy and removal of two pancreatic pseudocysts Social History Smoking/Tobacco Use Status: Current every day Tobacco Type: cigarettes Smoking packs per day: 0.5 Smoking cigarettes per day: 10.0 Years smoked: 27 Smoking pack-years: 13.50 Quit status: considering quitting Counseling given: provider counseling and support medications Smoking risk assessment performed?: Yes Alcohol Intake: current Alcohol Intake frequency: a few times a month Alcohol type: beer Counseling provided: provider counseling Drug use: Occasionally Substance use type: marijuana Housing: apartment Do you feel safe at home: Yes Do you feel safe in your relationship?: Yes Meds Allergies and Home Medications Allergies Allergy/AdvReac Type Severity Reaction Status Date / Time No Known Allergies Allergy Unverified 03/31/24 14:44 Home Medications ?Medication ?Instructions ?Recorded ?Confirmed ?Type trazodone 50 mg tablet 50 mg PO HS 05/31/23 03/31/24 History albuterol sulfate 90 mcg/actuation 1 inh inhalation Q4H PRN 02/05/24 03/31/24 History aerosol inhaler buprenorphine 64 mg/0.18 mL 64 mg subcut .monthly 02/05/24 03/31/24 History solution,exten.rel.subcutaneous syringe (Brixadi Monthly) spironolactone 50 mg tablet 100 mg PO BID 03/01/24 03/31/24 History diphenoxylate-atropine 2.5 1 tab PO BID PRN diarrhea #14 tabs 03/03/24 03/31/24 Rx mg-0.025 mg tablet (Lomotil) dextroamphetamine-amphetamine ER 30 mg PO DAILY 03/22/24 03/31/24 History 30 mg 24hr capsule,extend release cholestyramine-aspartame 4 gram 1 packet PO 0700,1100,1600,2000 03/24/24 03/31/24 Rx oral powder for susp in a packet #60 ea (Prevalite) loperamide 2 mg capsule 2 mg PO Q8H PRN #30 caps 03/24/24 03/31/24 Rx pantoprazole 40 mg tablet,delayed 40 mg PO DAILY #30 tabs 03/24/24 03/31/24 Rx release (Protonix) potassium chloride 20 mEq 40 meq (2 x 20 mEq) PO AC & HS #80 03/24/24 03/31/24 Rx tablet,extended tabs release(part/cryst) (Klor-Con M) prochlorperazine maleate 5 mg 5 mg PO TID PRN #30 tabs 03/24/24 03/31/24 Rx tablet (Compazine) azithromycin 250 mg tablet 250 mg PO DAILY 03/31/24 03/31/24 History Exam Narrative Exam Narrative: On exam she is alert and conversant and appears coherent. She has paroxysms of short coughing spells. Her posterior lung exam shows some scattered rales but breath sounds can be heard in upper and lower lung nunez right and left. Heart sounded regular and there was no apparent murmur. Abdomen soft and nontender. Lower extremities no significant edema. Neurologic exam showed no focal deficits. Suppressed Results Imaging Chest x-ray: report reviewed and image reviewed (Bilateral upper and lower infiltrates new since 02/29/2024) CT scan - chest: report reviewed and image reviewed (Bilateral upper and lower lobe infiltrates. There are no abscesses or septic emboli seen.) Labs 03/31/24 17:25 03/31/24 17:47 Labs: Laboratory Results - last 24 hr 03/31/24 03/31/24 03/31/24 14:59 15:04 17:00 WBC RBC Hgb Hct MCV MCH MCHC RDW Plt Count MPV Immature Gran % Neutrophils % Band Neutrophils % Lymphocytes % Monocytes % Eosinophils % Basophils % Metamyelocytes % Myelocytes % Nucleated RBC % Absolute Neutrophils Absolute Lymphocytes Absolute Monocytes Absolute Eosinophils Absolute Basophils RBC Morphology ESR VBG Lactate Sodium Potassium Chloride Carbon Dioxide Anion Gap BUN Creatinine Est GFR (CKD-EPI 2020) Glucose Calcium Total Bilirubin AST ALT Alkaline Phosphatase C-Reactive Protein Total Protein Albumin Urine Color Yellow Urine Clarity Clear Urine pH 6.0 Ur Specific [place] 1.015 Urine Protein Negative Urine Ketones Negative Urine Blood Negative Urine Nitrite Negative Urine Bilirubin Negative Urine Urobilinogen 0.2 Ur Leukocyte Esterase Negative Urine Glucose Negative COVID-19 Source Nasopharynx Cancelled SARS-CoV-2 (PCR) Negative Cancelled Influenza Type A (PCR) Negative Cancelled Influenza Type B (PCR) Negative Cancelled RSV (PCR) Negative Cancelled 03/31/24 03/31/24 03/31/24 17:25 17:47 18:05 WBC 32.35 H* RBC 3.03 L Hgb 9.3 L Hct 26.4 L MCV 87 MCH 30.7 MCHC 35.2 RDW 15.0 H Plt Count 302 MPV 10.5 Immature Gran % See Differential Neutrophils % 76.0 Band Neutrophils % 6 Lymphocytes % 8.0 Monocytes % 8.0 Eosinophils % 0.0 Basophils % 0.0 Metamyelocytes % 1 Myelocytes % 1 Nucleated RBC % 0.0 Absolute Neutrophils 26.53 H Absolute Lymphocytes 2.59 Absolute Monocytes 2.59 H Absolute Eosinophils 0.00 Absolute Basophils 0.00 RBC Morphology Normal ESR 23 H VBG Lactate 2.9 H* 2.3 H* Sodium Cancelled 135 L Potassium Cancelled 2.4 L* Chloride Cancelled 105 Carbon Dioxide Cancelled 19.7 L Anion Gap Cancelled 10.3 BUN Cancelled 3 L Creatinine Cancelled 0.7 Est GFR (CKD-EPI 2020) Cancelled 109.98 Glucose Cancelled 102 Calcium Cancelled 8.4 L Total Bilirubin Cancelled 0.63 AST Cancelled 31 ALT Cancelled 28 Alkaline Phosphatase Cancelled 203 H C-Reactive Protein 10.33 H Total Protein Cancelled 4.9 L Albumin Cancelled 1.2 L Urine Color Urine Clarity Urine pH Ur Specific [place] Urine Protein Urine Ketones Urine Blood Urine Nitrite Urine Bilirubin Urine Urobilinogen Ur Leukocyte Esterase Urine Glucose COVID-19 Source SARS-CoV-2 (PCR) Influenza Type A (PCR) Influenza Type B (PCR) RSV (PCR) Last Vital Signs Temp 37.7 C H 03/31/24 14:42 Pulse 114 H 03/31/24 19:46 Resp 19 03/31/24 19:50 BP 122/78 03/31/24 19:46 Pulse Ox 100 03/31/24 19:24 Time Spent Time spent with Patient: 40-54 minutes Time was spent: preparing to see the patient(eg.review tests), obtaining and/or reviewing separately otained hiistory, ordering medications,tests, procedures, referring, communicating with other health child care assistant, indepentently interpreting results and counseling the patient
[2024-03-31] MEDS: Normal Saline Flush 10 ML SYR IVP ×2 (21:32→21:33)
[2024-03-31] MEDS: Acetaminophen 325 MG TAB PO (23:18)
[2024-03-31] MEDS: Nicotine 14 MG/24 HR PATCH TD (23:18)
[2024-03-31] MEDS: POTASSIUM CHLORIDE/D5-0.45NACL 1,000 ML 100 MEQ IV (23:18)
[2024-03-31] MEDS: Potassium Chloride 20 MEQ TABCR 40 MEQ PO (23:18)
[2024-03-31] MEDS: Enoxaparin 40 MG/0.4 ML SYR SC (23:18)
[2024-03-31] MEDS: Spironolactone 50 MG TAB 100 MG PO (23:19)
[2024-03-31] MEDS: traZODone 50 MG TAB PO (23:20)
[2024-03-31] MEDS: guaiFENesin/D-METHORPHAN HB 5 ML CUP 20 ML PO (23:53)
[2024-04-01] VITALS (194 sets, daily range): BP systolic 92–119; BP diastolic 39–75; PULSE 55–113; RESP 2–33; TEMP 36.9–37.3; O2SAT 95–100
[2024-04-01] MEDS: Normal Saline Flush 10 ML SYR IVP ×3 (01:53→21:45)
[2024-04-01] MEDS: CEFEPIME 1 GM in Normal Saline 50 ML IVPB ×2 (03:53→10:15)
[2024-04-01] MEDS: Albuterol 2.5 MG/3 ML INH SOLN VIAL UPD ×3 (04:36→13:02)
[2024-04-01 06:38] LABS: Abs Immature Grans 0.62 10^3/uL (0.0-0.06); Absolute Eosinophil Count 0.13 10^3/uL (0.0-0.7); Basophils % 0.5 %; Eosinophils % 0.6 %; HCT 24.1 % (36.0-46.0); HGB 8.6 g/dL (11.2-15.7); Immature Grans % 2.8 %; Lymphocytes % 9.5 %; MCH 31.3 pg (27.0-33.0); MCHC 35.7 % (32.0-36.0); MCV 88 fL (80-95); MPV 10.7 fL (8.0-11.0); Neutrophils % 78.6 %; Platelet Count 249 10^3/uL (130-400); RBC 2.75 10^6/uL (3.93-5.22); RDW 15.3 % (11.7-14.6); WBC 22.13 10^3/uL (4.4-10.8)
[2024-04-01 06:42] LABS: Absolute Basophil Count 0.11 10^3/uL (0.0-0.2); Absolute Monocyte Count 1.77 10^3/uL (0.1-0.8); Absolute Neutrophil Count 17.39 10^3/uL (1.2-6.7)
[2024-04-01 07:02] LABS: BUN 4 mg/dL (7-18); CREATININE 0.6 mg/dL (0.55-1.02); Calcium 8.1 mg/dL (8.5-10.1); Chloride 109 mmol/L (98-107); Estimated GFR 114.15 (mL/min/1.73m2); Glucose 167 mg/dL (74-106); Magnesium 1.4 mg/dL (1.8-2.4); Sodium 138 mmol/L (136-145)
[2024-04-01 07:10] LABS: Potassium 2.4 mmol/L (3.5-5.1)
[2024-04-01 07:18] LABS: Diff Comment Agrees w/ Instrument; Hypochromasia 1+
[2024-04-01] MEDS: Pantoprazole 40 MG TABCR PO (08:30)
[2024-04-01] MEDS: Potassium Chloride 20 MEQ TABCR 40 MEQ PO ×4 (08:34→21:45)
[2024-04-01] MEDS: Benzonatate 100 MG CAP PO ×2 (08:47→15:15)
--- NOTE | 2024-04-01 09:11 | INITIAL_ITS ---
Date of service: 04/01/24 Time of Service: 09:11 Care Management Initial Assmt Initial Assessment Reason for Hospitalization: sepsis and pneumonia Functional Status/Living Situation Patient Presentation: Dolly was sitting up in bed when CM met with her. She was pleasant and engaged easily with CM. Dolly was just discharged from [facility] last Wednesday with hyponatremia. She stated that she felt well for a couple of days then began to cough and feel ill. She saw her PCP who diagnosed bronchitis and ordered a Z Pack. After 3 days she had still not improved and called her PCP to report that fact and was advised to come to the hospital. She is currently admitted with what may be HAP (healthcare associated pneumonia). Dolly remains tachycardic with HRs >100 much of the time and her SBPs are in the 90s-110 range. Fortunately, her oxygen saturation is in the 90s on room air. Dolly lives in an apartment in [facility] with her nasra and their 6 year old son. She is independent at baseline and does not receive any community services. Town of Residence: [facility] Resides with: Other (nasra and son) Employment Status: Disabled Instrumental Activities of Daily Living (ADLs): Independent Medications Medication Management: No Issues/Barriers identified Physical Functioning/Mobility Assistive Device: none Advance Directives Advance Directives: Do you have an Advance Directive: N 02/25/22 13:04 AD On File at [facility]: N 02/25/22 13:04 Date Asked 03/31/24 03/31/24 14:38 AD Date Reviewed COLST On File at [facility] No 10/29/23 19:12 COLST Date Scanned Code Status Resuscitation Status Full Code Insurance Coverage/Financial Issues Insurance: [employer] Medicare Replacement Care Team Visit Care Team Role Provider Type Georgina Leyva Primary Care Provider NURSE PRACTITIONER Juana Silver MD Emergency Provider [facility] STAFF PHYSICIAN Zaid Rios MD Admit Provider [facility] STAFF PHYSICIAN Attending Provider Discharge Potential Discharge Needs: PCP F/U Appt Anticipated Barriers to Discharge: None Identified Patient/Family Education Needs: Review discharge instructions, discuss Ask Me Three Transportation: Private vehicle Plan: Anticipate Dolly will be discharged home with no new services when medically stable.. She will follow up with her community providers and plan of care and transport via private vehicle with friend/family. CM will follow and continue to support discharge needs. [facility] All Active Problems (Updated 03/31/24 @ 22:52 by WANDY ANAYA) Pneumonia (Acute) Sepsis (Acute) ADHD (Acute) Opioid use disorder in remission (Acute) Continuous tobacco abuse (Acute) Chronic hypokalemia (Acute) Medical History (Updated 03/31/24 @ 22:52 by WANDY ANAYA) Chronic pancreatitis Insomnia Hypocalcemia Bilateral edema of lower extremity Hypoalbuminemia Hypokalemia Normocytic normochromic anemia COPD (chronic obstructive pulmonary disease) Alcohol abuse Diarrhea Dysphagia Bowel habit changes Pancreatic pseudocyst Pancreatic mass Anasarca Ganglion cyst of dorsum of left wrist Colitis Opioid dependence on agonist therapy Surgical History S/P cholecystectomy and removal of two pancreatic pseudocysts Social History Smoking/Tobacco Use Status: Current every day Tobacco Type: cigarettes Smoking packs per day: 0.5 Smoking cigarettes per day: 10.0 Years smoked: 27 Smoking pack-years: 13.50 Quit status: considering quitting Counseling given: provider counseling and support medications Smoking risk assessment performed?: Yes Alcohol Intake: current Alcohol Intake frequency: a few times a month Alcohol type: beer Counseling provided: provider counseling Drug use: Occasionally Substance use type: marijuana Housing: apartment Do you feel safe at home: Yes Do you feel safe in your relationship?: Yes Readmission Within the Past 30 Days Yes or No: Yes Date of First Admission Date of 1st Admission: 03/22/24 Date of this Admission Date of Admission: 03/31/24 This admission was: Through ED Office Visit Since 1st Admission Have you seen your PCP in the office since discharge?: Yes I. Interview patient and/or Family Difficulty reaching your doctor or getting an office appt?: No Have you had trouble purchasing/ or taking medication?: No Have you had trouble with getting meals at home?: No Did you feel ready for discharge when you left the last time: Yes Did you call your physician beore you came to the ED?: Yes Did your physician tell you to come in?: Yes How do you think you became sick enough to come back?: may have picked up something during last hospital stay Assessment for Readmission Summary of readmission circumstances, based upon interviews: Dolly was recently hospitalized for hyponatremia. Two days post discharge she began to cough and was diagnosed with broncitis and give a Z-pack. She showed no improvemnt in the next 3 days and was advised by her PCP to come to the hospital SDOH(Care Management) Screening Will the Patient Participate in the Screening?: Yes Do you worry about having a steady place to live?: no In the past 12 months, have you had to go without electric, gas, oil or water in your home?: no Have you or anyone in your house had to go without enough food to eat?: no Has lack of transportation kept you from medical appointments or from doing things needed for daily living?: no Has anyone in your support network made you feel unsafe for any reason?: no
--- NOTE | 2024-04-01 09:39 | PGE_ITS ---
Date of Service Date of service: 04/01/24 Time of Service: 09:39 Assessment and Plan Assessment and plan (1) Sepsis: Status: Acute Assessment and plan: Met sepsis criteria on admission with tachycardia fever and low blood pressures, elevated WBC. She responded to IV fluid bolus in the emergency room. Given her history of IV drug use (not active per report) there is concern for MRSA. She is improving on Vancomycin and meropenem. WBC down. Blood cultures are pending. (2) Pneumonia: Status: Acute Assessment and plan: Bilateral upper and lower lobe infiltrates. These have blossomed in the last month. Patient was hospitalized 1 week ago and there is concern for hospital- acquired pneumonia in a patient who has a history of IV drug use. Broad- spectrum antibiotic coverage as above. She is not hypoxic, not c/w something like PJP. Some of infiltrates could be from inhaling drugs, but she denies recent use. Given her tobacco use history will continue updrafts with albuterol and DuoNebs as needed. With GI issues, get legionaires antigen (3) ADHD: Status: Acute Assessment and plan: Continue on the dextroamphetamine daily. Qualifiers: Attention deficit-hyperactivity disorder type: combined inattentive- hyperactive Qualified Code(s): F90.2 - Attention-deficit hyperactivity disorder, combined type (4) Opioid use disorder in remission: Status: Acute Assessment and plan: She gets monthly Brixadi injections. Her next is due on 04/05/2024. (5) Continuous tobacco abuse: Status: Acute Assessment and plan: NRT, support (6) Chronic hypokalemia: Status: Acute Assessment and plan: Patient has chronic hypokalemia. She is on oral replacement but has difficulty tolerating it. Additional IV replacement with Mg today. Try to slow down diarrhea. (7) Diarrhea: Assessment and plan: chronic over months. [place] [facility] [place] am making lomotil and loperamide scheduled. Infectious w/u negative. History of pancreatitis, elastase still pending from 03/23. Qualifiers: Diarrhea type: functional diarrhea Qualified Code(s): K59.1 - Functional diarrhea Subjective Subjective Patient reports: feels better and voiding w/o difficulty; denies vomiting or fever Interval history since last seen: still has a bad cough, not productive. Breathing is a little more comfortable today. She is still having 6 loose BM/day. States florentino works the best. It has been like this for months. She has a hard time tolerating anything liquid, but can take pills. She denies smoking/inhaling anything before this cough started. She hasn't smoked cigarettes in a few days since she hasn't felt well. Exam Narrative Exam Narrative: On exam she is alert and conversant and appears coherent. She has paroxysms of short coughing spells. Lungs clear bilaterally except slight wheeze at left base, normal effort. Heart RRR no m/g/r. Abdomen soft and nontender. Lower extremities trace edema in ankles, hands puffy but not pitting. Objective Last Vital Signs Temp 37.3 C 04/01/24 04:20 Pulse 63 04/01/24 05:10 Resp 19 04/01/24 05:11 BP 98/51 L 04/01/24 05:10 Pulse Ox 98 04/01/24 05:11 Laboratory Results - last 24 hr 03/31/24 03/31/24 03/31/24 14:59 15:04 17:00 WBC RBC Hgb Hct MCV MCH MCHC RDW Plt Count MPV Immature Gran % Neutrophils % Band Neutrophils % Lymphocytes % Monocytes % Eosinophils % Basophils % Metamyelocytes % Myelocytes % Nucleated RBC % Absolute Neutrophils Absolute Lymphocytes Absolute Monocytes Absolute Eosinophils Absolute Basophils RBC Morphology Hypochromasia ESR VBG Lactate Sodium Potassium Chloride Carbon Dioxide Anion Gap BUN Creatinine Est GFR (CKD-EPI 2020) Glucose Calcium Magnesium Total Bilirubin AST ALT Alkaline Phosphatase C-Reactive Protein Total Protein Albumin Urine Color Yellow Urine Clarity Clear Urine pH 6.0 Ur Specific [place] 1.015 Urine Protein Negative Urine Ketones Negative Urine Blood Negative Urine Nitrite Negative Urine Bilirubin Negative Urine Urobilinogen 0.2 Ur Leukocyte Esterase Negative Urine Glucose Negative COVID-19 Source Nasopharynx Cancelled SARS-CoV-2 (PCR) Negative Cancelled Influenza Type A (PCR) Negative Cancelled Influenza Type B (PCR) Negative Cancelled RSV (PCR) Negative Cancelled 03/31/24 03/31/24 03/31/24 17:25 17:47 18:05 WBC 32.35 H* RBC 3.03 L Hgb 9.3 L Hct 26.4 L MCV 87 MCH 30.7 MCHC 35.2 RDW 15.0 H Plt Count 302 MPV 10.5 Immature Gran % See Differential Neutrophils % 76.0 Band Neutrophils % 6 Lymphocytes % 8.0 Monocytes % 8.0 Eosinophils % 0.0 Basophils % 0.0 Metamyelocytes % 1 Myelocytes % 1 Nucleated RBC % 0.0 Absolute Neutrophils 26.53 H Absolute Lymphocytes 2.59 Absolute Monocytes 2.59 H Absolute Eosinophils 0.00 Absolute Basophils 0.00 RBC Morphology Normal Hypochromasia ESR 23 H VBG Lactate 2.9 H* 2.3 H* Sodium Cancelled 135 L Potassium Cancelled 2.4 L* Chloride Cancelled 105 Carbon Dioxide Cancelled 19.7 L Anion Gap Cancelled 10.3 BUN Cancelled 3 L Creatinine Cancelled 0.7 Est GFR (CKD-EPI 2020) Cancelled 109.98 Glucose Cancelled 102 Calcium Cancelled 8.4 L Magnesium Total Bilirubin Cancelled 0.63 AST Cancelled 31 ALT Cancelled 28 Alkaline Phosphatase Cancelled 203 H C-Reactive Protein 10.33 H Total Protein Cancelled 4.9 L Albumin Cancelled 1.2 L Urine Color Urine Clarity Urine pH Ur Specific [place] Urine Protein Urine Ketones Urine Blood Urine Nitrite Urine Bilirubin Urine Urobilinogen Ur Leukocyte Esterase Urine Glucose COVID-19 Source SARS-CoV-2 (PCR) Influenza Type A (PCR) Influenza Type B (PCR) RSV (PCR) 04/01/24 05:54 WBC 22.13 H RBC 2.75 L Hgb 8.6 L Hct 24.1 L MCV 88 MCH 31.3 MCHC 35.7 RDW 15.3 H Plt Count 249 MPV 10.7 Immature Gran % 2.8 Neutrophils % 78.6 Band Neutrophils % Lymphocytes % 9.5 Monocytes % 8.0 Eosinophils % 0.6 Basophils % 0.5 Metamyelocytes % Myelocytes % Nucleated RBC % 0.0 Absolute Neutrophils 17.39 H Absolute Lymphocytes 2.10 Absolute Monocytes 1.77 H Absolute Eosinophils 0.13 Absolute Basophils 0.11 RBC Morphology See Below Hypochromasia 1+ ESR VBG Lactate Sodium 138 Potassium 2.4 L* Chloride 109 H Carbon Dioxide 20.0 L Anion Gap 9.0 BUN 4 L Creatinine 0.6 Est GFR (CKD-EPI 2020) 114.15 Glucose 167 H Calcium 8.1 L Magnesium 1.4 L Total Bilirubin AST ALT Alkaline Phosphatase C-Reactive Protein Total Protein Albumin Urine Color Urine Clarity Urine pH Ur Specific [place] Urine Protein Urine Ketones Urine Blood Urine Nitrite Urine Bilirubin Urine Urobilinogen Ur Leukocyte Esterase Urine Glucose COVID-19 Source SARS-CoV-2 (PCR) Influenza Type A (PCR) Influenza Type B (PCR) RSV (PCR) Time Spent with Patient Time Spent with Patient: >50 minutes Time was spent: preparing to see the patient(eg.review tests), obtaining and/or reviewing separately otained hiistory, ordering medications,tests, procedures, referring, communicating with other health home care administrator, indepentently interpreting results, counseling the patient and care coordination
[2024-04-01] MEDS: VANCOMYCIN/WATER (PEG) 1 GM/200 ML BAG IVPB ×2 (10:00→21:46)
[2024-04-01] MEDS: POTASSIUM CHLORIDE/D5-0.45NACL 1,000 ML 100 MEQ IV (10:17)
[2024-04-01] MEDS: MAGNESIUM SULFATE 4 GM/100 ML BAG IVINF (10:21)
[2024-04-01] MEDS: POTASSIUM CHLORIDE 20 MEQ/100 ML BAG 50 MEQ IVINF ×2 (10:24→12:35)
[2024-04-01] MEDS: guaiFENesin 600 MG TABCR PO ×2 (10:29→21:45)
[2024-04-01] MEDS: Acetaminophen 325 MG TAB PO (11:03)
[2024-04-01] MEDS: Spironolactone 50 MG TAB 100 MG PO ×2 (11:03→21:45)
--- NOTE | 2024-04-01 12:11 | PHA.REVIEW2 ---
Pharmacy Admission Review Admission Clinical Review Admission Pharmacy Review: Pneumonia (Acute) Sepsis (Acute) ADHD (Acute) Opioid use disorder in remission (Acute) Continuous tobacco abuse (Acute) Chronic hypokalemia (Acute) No Known Allergies Allergy (Unverified 03/31/24 14:44) Resuscitation Status Full Code Height 5 ft 2 in Weight 53 kg Pharmacy Admission Review Renal Dosing Renal Dosing: BUN 4 mg/dL (7-18) L 04/01/24 05:54 Creatinine 0.6 mg/dL (0.55-1.02) 04/01/24 05:54 Medications needing adjustments: Reviewed (CrCl 101.15 mL/min) List of meds needing interventions: Current medications are okay Anticoagulation Anticoagulation: Hgb 8.6 g/dL (11.2-15.7) L 04/01/24 05:54 Hct 24.1 % (36.0-46.0) L 04/01/24 05:54 Plt Count 249 10^3/uL (130-400) 04/01/24 05:54 Creatinine 0.6 mg/dL (0.55-1.02) 04/01/24 05:54 DVT Prophylaxis: Reviewed (Hgb decreased from 9.3) Medications: Enoxaparin (40mg daily) Relevant Labs Relevant Labs: ESR 23 mm/hr (0-20) H 03/31/24 17:25 Sodium 138 mmol/L (136-145) 04/01/24 05:54 Potassium 2.4 mmol/L (3.5-5.1) L* 04/01/24 05:54 Chloride 109 mmol/L (98-107) H 04/01/24 05:54 Magnesium 1.4 mg/dL (1.8-2.4) L 04/01/24 05:54 C-Reactive Protein 10.33 mg/dL (<or=0.5) H 03/31/24 17:25 Electrolytes, C-Reactive P, ESR: Reviewed (K and Mg being repleting and have repeat labs pending - patient has chronic hypokalemia) Cardiac Review Cardiac Review: Blood Pressure 98/51 0510 Blood Pressure 97/39 0501 Blood Pressure 97/56 0451 Blood Pressure 93/61 0402 Blood Pressure 99/64 0301 Blood Pressure 111/59 0245 BP, HR, EF%: Reviewed (HR WNL) List meds needing interventions: Has order for spironolactone 100mg BID QTc Review QTc: Reviewed (430 from 03/21/24) IV to PO Switch IV Medications: Reviewed (Cefepime and vancomycin) Home Meds Home Med List reviewed: Intervened Relevent Home Meds Not ordered & why?: Bridaxi (monthly, next dose due 04/05/24 per H+P) Adderall 20mg IR daily was removed from home med list yesterday by ED nurse. Per nursing upstairs, patient does still take this. I added back to home med list and informed provider who put in the order. Timed Adderall orders for 0630 and 1200 as this is how patient takes it at home. Current Meds Current Medication Order Review: Intervened Comments: Added 2nd PRN to albuterol order per pharmacy protocol Changed timing of pantoprazole from 0830 to 0730 per pharmacy protocol Pharmacy Antibiotic Review Relevant Labs: Relevant Labs 03/31/24 17:25 C-Reactive Protein 10.33 H WBC 22.13 10^3/uL (4.4-10.8) H 04/01/24 05:54 Temperature 37.3 C Pharmacy Antibiotic Activity: Abx regimen adjustment (cefepime dosing) and C/S review Comments: Patient is on cefepime and vancomycin, day 1, for sepsis / possible pneumonia. Vancomycin dose currently 1000mg q12h with predicted AUC of 574 and trough of 17.1. Level ordered for today at 1400 and will adjust dose as needed. Reached out to provider regarding cefepime dose, was ordered as 1g q8h. Informed provider that recommended dose for sepsis is 2g q8h, provider then changed order. WBC decreased from 32.35 and has been afebrile since yesterday at 1442. Blood cultures pending.
[2024-04-01] MEDS: Amphet Asp/Amphet/D-Amphet 10 MG TAB 20 MG PO (12:25)
[2024-04-01] MEDS: Prochlorperazine 5 MG TAB PO (15:15)
[2024-04-01] MEDS: Cyclobenzaprine 10 MG TAB PO (15:41)
[2024-04-01 16:11] LABS: Anion Gap 12.7 mmol/L (3-11); BUN 3 mg/dL (7-18); CO2 18.3 mmol/L (21.0-32.0); CREATININE 0.7 mg/dL (0.55-1.02); Calcium 7.7 mg/dL (8.5-10.1); Chloride 112 mmol/L (98-107); Estimated GFR 109.98 (mL/min/1.73m2); Glucose 168 mg/dL (74-106); Magnesium 2.7 mg/dL (1.8-2.4); Potassium 3.5 mmol/L (3.5-5.1); Sodium 143 mmol/L (136-145)
[2024-04-01] MEDS: Ketorolac 15 MG/ML VIAL IVP (17:42)
[2024-04-01] MEDS: CEFEPIME 2 GM in Normal Saline 50 ML IVPB (17:47)
[2024-04-01] MEDS: traZODone 50 MG TAB PO (21:45)
[2024-04-01] MEDS: Enoxaparin 40 MG/0.4 ML SYR SC (22:02)
[2024-04-01] MEDS: Albuterol/Ipratropium 3 ML UPD VIAL UPD (22:22)
[2024-04-01 22:24] LABS: Legionella Ag Detection Urine Negative (Negative)
[2024-04-02] VITALS (70 sets, daily range): BP systolic 89–119; BP diastolic 53–84; PULSE 66–105; RESP 2–31; TEMP 37.2–37.4; O2SAT 95–100
[2024-04-02] MEDS: POTASSIUM CHLORIDE/D5-0.45NACL 1,000 ML 100 MEQ IV (00:09)
[2024-04-02] MEDS: Normal Saline Flush 10 ML SYR IVP ×3 (00:36→21:06)
[2024-04-02] MEDS: Ketorolac 15 MG/ML VIAL IVP ×4 (00:36→22:05)
[2024-04-02] MEDS: Cyclobenzaprine 10 MG TAB PO ×4 (00:45→22:04)
[2024-04-02] MEDS: Loperamide 2 MG CAP PO ×3 (02:33→18:16)
[2024-04-02] MEDS: CEFEPIME 2 GM in Normal Saline 100 ML IVPB ×3 (02:33→18:16)
[2024-04-02] MEDS: Pantoprazole 40 MG TABCR PO (06:04)
[2024-04-02] MEDS: Albuterol 2.5 MG/3 ML INH SOLN VIAL UPD ×2 (06:04→13:41)
[2024-04-02 07:10] LABS: Abs Immature Grans 0.92 10^3/uL (0.0-0.06); HCT 23.4 % (36.0-46.0); HGB 8.1 g/dL (11.2-15.7); MCH 30.9 pg (27.0-33.0); MCHC 34.6 % (32.0-36.0); MCV 89 fL (80-95); MPV 11.1 fL (8.0-11.0); Platelet Count 233 10^3/uL (130-400); RBC 2.62 10^6/uL (3.93-5.22); RDW 15.5 % (11.7-14.6); RDW-SD 51.1 fL; WBC 16.91 10^3/uL (4.4-10.8)
[2024-04-02 07:26] LABS: Anion Gap 10.6 mmol/L (3-11); BUN 4 mg/dL (7-18); CO2 16.4 mmol/L (21.0-32.0); CREATININE 0.6 mg/dL (0.55-1.02); Calcium 7.6 mg/dL (8.5-10.1); Chloride 115 mmol/L (98-107); Estimated GFR 114.15 (mL/min/1.73m2); Glucose 119 mg/dL (74-106); Potassium 3.6 mmol/L (3.5-5.1); Sodium 142 mmol/L (136-145)
[2024-04-02 07:45] LABS: Absolute Basophil Count 0.17 10^3/uL (0.0-0.2); Absolute Eosinophil Count 0.17 10^3/uL (0.0-0.7); Absolute Lymphocyte Count 3.04 10^3/uL (1.2-3.4); Absolute Monocyte Count 1.69 10^3/uL (0.1-0.8); Absolute Neutrophil Count 11.84 10^3/uL (1.2-6.7); Atypical Lymphocytes % 2 %; Diff Comment Manual Differential; Hypochromasia 2+
[2024-04-02 07:46] LABS: Poikilocytes 1+
[2024-04-02] MEDS: Acetaminophen 325 MG TAB PO ×2 (07:48→16:04)
[2024-04-02] MEDS: Spironolactone 50 MG TAB 100 MG PO ×2 (07:48→21:11)
[2024-04-02] MEDS: Potassium Chloride 20 MEQ TABCR 40 MEQ PO ×4 (07:48→21:11)
[2024-04-02] MEDS: Nicotine 14 MG/24 HR PATCH TD (07:49)
[2024-04-02] MEDS: guaiFENesin 600 MG TABCR PO ×2 (07:49→21:11)
[2024-04-02] MEDS: Benzonatate 100 MG CAP PO ×2 (07:49→21:47)
--- NOTE | 2024-04-02 12:12 | W.PM.PROGNOT ---
Date of Service Date of service: 04/02/24 Time of Service: 12:12 Assessment and Plan Assessment and plan (1) Sepsis: Status: Acute Assessment and plan: Met sepsis criteria on admission with tachycardia fever and low blood pressures, elevated WBC. She responded to IV fluid bolus in the emergency room. Given her history of IV drug use (not active per report) there is concern for MRSA. She is improving on Vancomycin and meropenem. WBC down. MRSA swab negative, will stop Vanco Blood cultures are NGTD (2) Pneumonia: Status: Acute Assessment and plan: Bilateral upper and lower lobe infiltrates. These have blossomed in the last month. Patient was hospitalized 1 week ago and there is concern for hospital-acquired pneumonia in a patient who has a history of IV drug use. Broad-spectrum antibiotic coverage on admission with meropenem and vancomycin. She was never hypoxic, not c/w something like PJP. Some of infiltrates could be from inhaling drugs, but she denies recent use. Given her tobacco use history will continue updrafts with albuterol and DuoNebs as needed. With GI issues, legionaires antigen sent. Stop vanco, start doxy for full pneumonia coverage. (3) ADHD: Status: Acute Assessment and plan: Continue on the dextroamphetamine daily. 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 Her next is due on 04/05/2024. (5) Continuous tobacco abuse: Status: Acute Assessment and plan: NRT, support (6) Chronic hypokalemia: Status: Acute Assessment and plan: Patient has chronic hypokalemia. She is on oral replacement but has difficulty tolerating it. Additional IV replacement with Mg 04/01. K+ okay this morning, but stopping IV fluids with K+. Trying to slow down diarrhea. Continue to monitor. (7) Diarrhea: Assessment and plan: chronic over months. Has colo pending at [facility] [place]. Mede lomotil and loperamide scheduled. Infectious w/u negative. History of pancreatitis, elastase still pending from 03/23. Qualifiers: Diarrhea type: functional diarrhea Qualified Code(s): K59.1 - Functional diarrhea Subjective Subjective Patient reports: tolerating a regular diet, voiding w/o difficulty and diarrhea; denies nausea, vomiting or fever Interval history since last seen: Events: Declining cholestyramine, loperamide and lomotil made scheduled for diarrhea She is still having liquid stool, except for an hour or two after lomotil. Still coughing and tired, maybe a little better. She is getting more puffy and would like to stop fluids. Exam Narrative Exam Narrative: On exam she is alert and conversant and appears coherent. She has paroxysms of short coughing spells. Lungs clear bilaterally, normal effort. Heart RRR no m/g/r. Abdomen soft and nontender. Lower extremities trace to 1+ edema in ankles, hands puffy but not pitting. Objective Last Vital Signs Temp 37.3 C 04/02/24 06:15 Pulse 89 04/02/24 07:11 Resp 23 04/02/24 07:11 BP 89/59 L 04/02/24 07:11 Pulse Ox 99 04/02/24 07:11 Laboratory Results - last 24 hr 04/01/24 04/02/24 15:30 05:36 WBC 16.91 H RBC 2.62 L Hgb 8.1 L Hct 23.4 L MCV 89 MCH 30.9 MCHC 34.6 RDW 15.5 H Plt Count 233 MPV 11.1 H Immature Gran % See Differential Neutrophils % 70.0 Lymphocytes % 16.0 Atypical Lymphs % 2 Monocytes % 10.0 Eosinophils % 1.0 Basophils % 1.0 Nucleated RBC % 0.0 Absolute Neutrophils 11.84 H Absolute Lymphocytes 3.04 Absolute Monocytes 1.69 H Absolute Eosinophils 0.17 Absolute Basophils 0.17 RBC Morphology See Below Hypochromasia 2+ Poikilocytosis 1+ Sodium 143 142 Potassium 3.5 D 3.6 Chloride 112 H 115 H Carbon Dioxide 18.3 L 16.4 L Anion Gap 12.7 H 10.6 BUN 3 L 4 L Creatinine 0.7 0.6 Est GFR (CKD-EPI 2020) 109.98 114.15 Glucose 168 H 119 H Calcium 7.7 L 7.6 L Magnesium 2.7 H Random Vancomycin 21.0 Time Spent with Patient Time Spent with Patient: >50 minutes Time was spent: preparing to see the patient(eg.review tests), obtaining and/or reviewing separately [facility]3]istory, ordering medications,tests, procedures, referring, communicating with other health critical care nurse specialist, indepentently interpreting results, counseling the patient and care coordination
[2024-04-02] MEDS: Amphet Asp/Amphet/D-Amphet 10 MG TAB 20 MG PO (12:59)
[2024-04-02] MEDS: DOXYCYCLINE 100 MG in Normal Saline 100 ML IVPB (14:44)
[2024-04-02] MEDS: Prochlorperazine 5 MG TAB PO (14:45)
[2024-04-02] MEDS: guaiFENesin/D-METHORPHAN HB 5 ML CUP 20 ML PO (15:15)
[2024-04-02] MEDS: traZODone 50 MG TAB PO (21:10)
[2024-04-02] MEDS: Enoxaparin 40 MG/0.4 ML SYR SC (21:10)
[2024-04-02] MEDS: Albuterol/Ipratropium 3 ML UPD VIAL UPD (21:47)
[2024-04-03] VITALS (46 sets, daily range): BP systolic 96–116; BP diastolic 60–74; PULSE 70–94; RESP 2–33; TEMP 36.6–37.5; O2SAT 96–100
[2024-04-03] MEDS: CEFEPIME 2 GM in Normal Saline 100 ML IVPB ×3 (01:50→18:19)
[2024-04-03] MEDS: Loperamide 2 MG CAP PO ×3 (01:58→18:18)
[2024-04-03] MEDS: DOXYCYCLINE 100 MG in Normal Saline 100 ML IVPB ×2 (02:42→13:19)
[2024-04-03] MEDS: Normal Saline Flush 10 ML SYR IVP ×4 (04:07→20:10)
[2024-04-03] MEDS: Acetaminophen 325 MG TAB PO (05:18)
[2024-04-03] MEDS: Ketorolac 15 MG/ML VIAL IVP ×3 (05:21→20:10)
[2024-04-03] MEDS: Albuterol 2.5 MG/3 ML INH SOLN VIAL UPD (05:26)
[2024-04-03 06:38] LABS: HCT 24.8 % (36.0-46.0); HGB 8.2 g/dL (11.2-15.7); MCH 30.8 pg (27.0-33.0); MCHC 33.1 % (32.0-36.0); MCV 93 fL (80-95); MPV 11.2 fL (8.0-11.0); Platelet Count 264 10^3/uL (130-400); RBC 2.66 10^6/uL (3.93-5.22); RDW 16.2 % (11.7-14.6); RDW-SD 55.2 fL
[2024-04-03 06:50] LABS: Anion Gap 11.7 mmol/L (3-11); BUN 5 mg/dL (7-18); CO2 15.3 mmol/L (21.0-32.0); CREATININE 0.6 mg/dL (0.55-1.02); Calcium 7.8 mg/dL (8.5-10.1); Chloride 113 mmol/L (98-107); Estimated GFR 114.15 (mL/min/1.73m2); Glucose 98 mg/dL (74-106); Potassium 3.3 mmol/L (3.5-5.1); Sodium 140 mmol/L (136-145)
[2024-04-03 07:02] LABS: Vancomycin, Random 6.1 ug/mL
[2024-04-03 07:19] LABS: Absolute Eosinophil Count 0.64 10^3/uL (0.0-0.7); Absolute Lymphocyte Count 3.22 10^3/uL (1.2-3.4); Absolute Monocyte Count 0.64 10^3/uL (0.1-0.8); Absolute Neutrophil Count 11.59 10^3/uL (1.2-6.7); Bands % 3 %; Diff Comment Manual Differential; RBC Morphology Normal
[2024-04-03] MEDS: Spironolactone 50 MG TAB 100 MG PO ×2 (08:32→20:10)
[2024-04-03] MEDS: Potassium Chloride 20 MEQ TABCR 40 MEQ PO ×4 (08:32→22:17)
[2024-04-03] MEDS: Pantoprazole 40 MG TABCR PO (08:32)
[2024-04-03] MEDS: guaiFENesin 600 MG TABCR PO ×2 (08:33→20:11)
[2024-04-03] MEDS: Cyclobenzaprine 10 MG TAB PO ×2 (08:36→16:40)
[2024-04-03] MEDS: Benzonatate 100 MG CAP PO (08:36)
--- NOTE | 2024-04-03 08:55 | CMPROGNOTE_ITS ---
Date of service: 04/03/24 Time of Service: 08:55 Care Management Progress Note Progress Note Text Progress Note Text: Dolly was sitting up in bed when CM met with her. She stated that she is feeling better but not well enough to go home. She described feeling very weak. Dolly continues to have diarrhea as well. She reported that she has been having 4-5 stools a day and that they are loose. Per provider, this may be related to the medication she is taking for her DAVID (Brixadi). Dolly's vital signs are stable and she is saturating in the high 90s on room air. She was provided [facility] a word search book by CM to help pass the time. Discharge Potential Discharge Needs: PCP F/U Appt Anticipated Barriers to Discharge: None Identified Patient/Family Education Needs: Review discharge instructions, discuss Ask Me Three Transportation: Private vehicle Plan: Anticipate Dolly will be discharged home with no new services when medically stable.. She will follow up with her community providers and plan of care and transport via private vehicle with friend/family. CM will follow and continue to support discharge needs. SDOH(Care Management) Screening Will the Patient Participate in the Screening?: Yes Do you worry about having a steady place to live?: no In the past 12 months, have you had to go without electric, gas, oil or water in your home?: no Have you or anyone in your house had to go without enough food to eat?: no Has lack of transportation kept you from medical appointments or from doing things needed for daily living?: no Has anyone in your support network made you feel unsafe for any reason?: no
[2024-04-03] MEDS: POTASSIUM CHLORIDE 20 MEQ/100 ML BAG 50 MEQ IVINF ×2 (10:10→14:51)
[2024-04-03] MEDS: Amphet Asp/Amphet/D-Amphet 10 MG TAB 20 MG PO (12:01)
--- NOTE | 2024-04-03 13:05 | W.PC.ACHO ---
Registration Status: Primary Language: Preferred Language: ED Information & Data Chief Complaint RespSymp 03/31/24 16:08 Triage Note patient here with THROAT CUTTER cough ( 03/31/24 14:42 put on azithromycin for bronchitis and has been on it for 3 days) and sob, and R ear clogged. Medical / Surgical History (Last Updated 03/31/24 @ 20:39 by Zaid Rios MD) Chronic pancreatitis Insomnia Hypocalcemia Bilateral edema of lower extremity Hypoalbuminemia Hypokalemia Normocytic normochromic anemia COPD (chronic obstructive pulmonary disease) Alcohol abuse Diarrhea Dysphagia Bowel habit changes Pancreatic pseudocyst Pancreatic mass Anasarca Ganglion cyst of dorsum of left wrist Colitis Opioid dependence on agonist therapy (Last Reviewed 03/31/24 @ 16:13 by Blade Kuo MD) S/P cholecystectomy Most Recent Vital Signs Temperature 37.1 C 04/03/24 08:00 Temperature Source Temporal Artery Scan 04/03/24 05:43 Pulse 70 04/03/24 11:01 Pulse 82 04/03/24 11:01 Respiratory Rate 25 H 04/03/24 11:01 Respiratory Effort Normal 03/31/24 22:36 Respiratory Depth Normal 03/31/24 22:36 Respiratory Pattern Tachypnea 03/31/24 22:36 Blood Pressure 103/67 04/03/24 11:01 Blood Pressure Mean 78 04/03/24 11:01 Blood Pressure Position Supine 03/31/24 22:36 Pulse Oximetry 99 04/03/24 10:01 Oxygen Delivery Method Room Air 04/03/24 08:00 Oxygen Flow Rate 0 04/03/24 08:00 Pain Level 5 04/03/24 11:30 Allergies No Known Allergies Allergy (Unverified 03/31/24 14:44) Precautions Isolation Droplet precaution 03/31/24 15:44 Active Medications Generic Name Dose Route Start Last Admin Trade Name Freq PRN Reason Stop Dose Admin Acetaminophen 0 mg 03/31/24 22:51 04/03/24 05:18 Acetaminophen 325 Mg Tab PO 650 mg Q4H PRN PRN Administration Albuterol Sulfate 2.5 mg 03/31/24 22:51 04/03/24 05:26 Albuterol 2.5 Mg/3 Ml Inh Soln Vial UPD 2.5 mg Q2H PRN PRN Administration Albuterol/Ipratropium 3 ml 03/31/24 22:51 04/02/24 21:47 Albuterol/Ipratropium 3 Ml Upd Vial UPD 3 ml Q6H PRN PRN Administration Amphetamine Aspartate/Amphetam Sulf 30 mg 04/01/24 08:30 04/03/24 08:32 Amphet Asp/Amphet/D-Amphet 10mg Capcr PO 30 mg DAILY@0600 DIMAS Administration Amphetamine Aspartate/Amphetam Sulf 20 mg 04/01/24 12:00 04/03/24 12:01 Amphet Asp/Amphet/D-Amphet 10 Mg Tab PO 20 mg DAILY@1200 DIMAS Administration Benzonatate 100 mg 04/01/24 06:30 04/03/24 08:36 Benzonatate 100 Mg Cap PO 100 mg TID PRN PRN Administration Cyclobenzaprine HCl 10 mg 04/02/24 16:00 04/03/24 08:36 Cyclobenzaprine 10 Mg Tab PO 10 mg TID PRN PRN Administration Diphenoxylate HCl/Atropine 2 tab 04/01/24 16:00 04/03/24 12:01 Diphenoxylate/Atropine Tab PO 2 tab QID DIMAS Administration Enoxaparin Sodium 40 mg 04/01/24 22:00 04/02/24 21:10 Enoxaparin 40 Mg/0.4 Ml Syr SC 40 mg Q24H DIMAS Administration Guaifenesin 600 mg 04/01/24 10:00 04/03/24 08:33 Guaifenesin 600 Mg Tabcr PO 600 mg BID DIMAS Administration Guaifenesin/Dextromethorphan 20 ml 03/31/24 23:36 04/02/24 15:15 Guaifenesin/D-Methorphan Hb 5 Ml Cup PO 20 ml Q4H PRN PRN Administration Cefepime HCl 2 gm/ Sodium 100 mls @ 200 mls/hr 04/02/24 02:00 04/03/24 11:32 Chloride IVPB Infused Q8H DIMAS Infusion Doxycycline Hyclate 100 mg/ 100 mls @ 100 mls/hr 04/02/24 14:00 04/03/24 03:52 Sodium Chloride IVPB Infused Q12H DIMAS Infusion Potassium Chloride 20 meq in 100 mls @ 50 mls/hr 04/03/24 09:45 04/03/24 10:10 IVINF 04/03/24 13:44 50 mls/hr Q2H DIMAS Administration Ketorolac Tromethamine 15 mg 04/01/24 17:23 04/03/24 12:22 Ketorolac 15 Mg/Ml Vial IVP 04/06/24 17:22 15 mg Q6H PRN PRN Administration Loperamide HCl 2 mg 04/01/24 10:00 04/03/24 08:33 Loperamide 2 Mg Cap PO 2 mg Q8H DIMAS Administration Nicotine 14 mg 03/31/24 22:51 04/02/24 07:49 Nicotine 14 Mg/24 Hr Patch TD 14 mg DAILY PRN PRN Administration Pantoprazole Sodium 40 mg 04/01/24 08:30 04/03/24 08:32 Pantoprazole 40 Mg Tabcr PO 40 mg DAILY@0730 DIMAS Administration Potassium Chloride 40 meq 03/31/24 22:51 04/03/24 12:00 Potassium Chloride 20 Meq Tabcr PO 40 meq AC & HS DIMAS Administration Prochlorperazine Maleate 5 mg 04/01/24 08:20 04/02/24 14:45 Prochlorperazine 5 Mg Tab PO 5 mg TID PRN PRN Administration Sodium Chloride 0 ml 03/31/24 16:20 04/03/24 10:10 Normal Saline Flush 10 Ml Syr IVP 10 ml PRN PRN Administration Sodium Chloride 0 ml 03/31/24 20:00 04/03/24 11:31 Normal Saline Flush 10 Ml Syr IVP Not Given BID DIMAS Spironolactone 100 mg 03/31/24 22:51 04/03/24 08:32 Spironolactone 50 Mg Tab PO 100 mg BID DIMAS Administration Trazodone HCl 50 mg 03/31/24 22:51 04/02/24 21:10 Trazodone 50 Mg Tab PO 50 mg HS DIMAS Administration IV IV Catheter Type [Left Upper Peripheral IV arm] IV Catheter Type [Left Peripheral IV Antecubital] IV Catheter Type [Right Foot] Saline Lock IV Catheter Gauge [Left Upper 20 arm] IV Catheter Gauge [Left 20 Antecubital] IV Catheter Gauge [Right Foot] 22 Diagnostics 04/03/24 04/01/24 Range/Units 05:30 12:55 WBC 16.10 H (4.4-10.8) 10^3/uL RBC 2.66 L (3.93-5.22) 10^6/uL Hgb 8.2 L (11.2-15.7) g/dL Hct 24.8 L (36.0-46.0) % MCV 93 D (80-95) fL MCH 30.8 (27.0-33.0) pg MCHC 33.1 (32.0-36.0) % RDW 16.2 H (11.7-14.6) % Plt Count 264 (130-400) 10^3/uL MPV 11.2 H (8.0-11.0) fL Immature Gran % 0.0 % Neutrophils % 69.0 % Band Neutrophils % 3 % Lymphocytes % 20.0 % Monocytes % 4.0 % Eosinophils % 4.0 % Basophils % 0.0 % Nucleated RBC % 0.0 (0.0-0.3) % Absolute Neutrophils 11.59 H (1.2-6.7) 10^3/uL Absolute Lymphocytes 3.22 (1.2-3.4) 10^3/uL Absolute Monocytes 0.64 (0.1-0.8) 10^3/uL Absolute Eosinophils 0.64 (0.0-0.7) 10^3/uL Absolute Basophils 0.00 (0.0-0.2) 10^3/uL RBC Morphology Normal Sodium 140 (136-145) mmol/L Potassium 3.3 L (3.5-5.1) mmol/L Chloride 113 H (98-107) mmol/L Carbon Dioxide 15.3 L (21.0-32.0) mmol/L Anion Gap 11.7 H (3-11) mmol/L BUN 5 L (7-18) mg/dL Creatinine 0.6 (0.55-1.02) mg/dL Est GFR (CKD-EPI 2020) 114.15 (mL/min/1.73m2) Glucose 98 (74-106) mg/dL Calcium 7.8 L (8.5-10.1) mg/dL Random Vancomycin 6.1 ug/mL Urine Legionella Ag Negative (Negative) 03/31/24 18:05 Blood Culture - Preliminary Blood NO GROWTH 48 HOURS 03/31/24 17:25 Blood Culture - Preliminary Blood NO GROWTH 48 HOURS Intake and Output - 24 Hour Total 03/31/24 14:34 thru 04/03/24 11:32 Intake Total 8623.667 Output Total 825 Balance 7798.667 Weight 58.1 kg Intake: IV 6981.667 Oral 1642 Output: Urine 625 Emesis 200 Other: Urine Color Yellow Urine Appearance Clear Urine Odor Normal Comment mixed with stool Stool Size Small Stool Characteristics Soft Liquid Emesis Description Undigested Food Voiding Methods Bedside Commode Falls Risk Assessment History of Falls No History 03/31/24 22:36 Contributing Factors No Factors 03/31/24 22:36 Ambulatory Aids Independent 03/31/24 22:36 Tubes/Lines None 03/31/24 22:36 Gait Evaluation No gait disturbance 03/31/24 22:36 Cognition No cognitive impairment 03/31/24 22:36 Fall Total Score 0 03/31/24 22:36 Level of Risk Standard/Low Risk 03/31/24 22:36 Problems (Last Updated 03/31/24 @ 20:39 by Zaid Rios MD) Pneumonia (Acute) Sepsis (Acute) ADHD (Acute) Opioid use disorder in remission (Acute) Continuous tobacco abuse (Acute) Chronic hypokalemia (Acute) v v v v v v v v v Sending and/or Receiving Nurses: Please use comment section below to note any information pertinent to the patient hand-off not included above. Information / Comments: pt transfers from 221 to rm 225 via Report received from: Manpreet Alvarado RN
--- NOTE | 2024-04-03 13:33 | W.PM.PROGNOT ---
Date of Service Date of service: 04/03/24 Time of Service: 13:33 Assessment and Plan Assessment and plan (1) Sepsis: Status: Acute Assessment and plan: Met sepsis criteria on admission with tachycardia fever and low blood pressures, elevated WBC. She responded to IV fluid bolus in the emergency room. Given her history of IV drug use (not active per report) there was concern for MRSA. She is improving on Vancomycin and cefepine. WBC down. MRSA swab negative, stopped Vanco 04/02 Blood cultures are NGTD (2) Pneumonia: Status: Acute Assessment and plan: Bilateral upper and lower lobe infiltrates. New in the last month. Patient was hospitalized 1 week prior to presentation so there was concern for hospital-acquired pneumonia in a patient who has a history of IV drug use. Broad-spectrum antibiotic coverage on admission with cefepime and vancomycin. She was never hypoxic, not c/w something like PJP. Some of infiltrates could be from inhaling drugs, but she denies recent use. Given her tobacco use history will continue updrafts with albuterol and DuoNebs, made scheduled 04/03, prednisone added. With GI issues, legionaires antigen sent. Stopped vanco, started doyxcycline on 04/02. (3) ADHD: Status: Acute Assessment and plan: Continue on the dextroamphetamine daily. 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 Her next is due on 04/05/2024, but I would recommend going back to SL Suboxone as her severe diarrhea started after the transition to injectable. (5) Continuous tobacco abuse: Status: Acute Assessment and plan: NRT, support, discussed veranicline. (6) Chronic hypokalemia: Status: Acute Assessment and plan: Patient has chronic hypokalemia due to diarrhea. She is on oral replacement but has difficulty tolerating it. Additional IV replacement with Mg given. Trying to slow down diarrhea. Continue to monitor. (7) Diarrhea: Assessment and plan: chronic over months. c. diff, stool bacteria, and parasitic testing negative. Has colo pending at [facility] [place]. Mede lomotil and loperamide scheduled. Infectious w/u negative. History of pancreatitis, elastase still pending from 03/23, per lab sent to [facility] and should result 04/06. As above, plan to go back to SL suboxone as this may help. Qualifiers: Diarrhea type: functional diarrhea Qualified Code(s): K59.1 - Functional diarrhea (8) Splenic vein thrombosis: Status: Acute Assessment and plan: noted on recent admission, not on anticoagulated yet. Secondary to pancreatitis. Could consider anticoagulation, though with anemia I would be concerned about risk of bleed. Consider anticoagulation if no occult blood in stool. (9) Anemia: Status: Chronic Assessment and plan: This developed associated with recent illnesses. Get iFOB and iron levels. (10) DVT prophylaxis: Status: Resolved Assessment and plan: on enoxaparin. Subjective Subjective Patient reports: no new complaints, tolerating a regular diet and shortness of breath; denies diarrhea, vomiting or fever Interval history since last seen: Feeling a little better. Still coughing, though not as constantly. Comes in fits now. nebulizer helped last night. She does confirm her diarrhea started after changing from SL Suboxone to long acting injectable buprenorphine. Exam Narrative Exam Narrative: On exam she is alert and conversant and appears coherent. She has paroxysms of short coughing spells. Lungs with bilateral expirotory wheeze, no rales, normal effort. Heart RRR no m/g/r. Abdomen soft and nontender. Lower extremities trace edema in ankles, hands less puffy. Objective Last Vital Signs Temp 37.1 C 04/03/24 08:00 Pulse 70 04/03/24 11:01 Resp 25 H 04/03/24 11:01 BP 103/67 04/03/24 11:01 Pulse Ox 99 04/03/24 10:01 Laboratory Results - last 24 hr 04/01/24 04/03/24 12:55 05:30 WBC 16.10 H RBC 2.66 L Hgb 8.2 L Hct 24.8 L MCV 93 D MCH 30.8 MCHC 33.1 RDW 16.2 H Plt Count 264 MPV 11.2 H Immature Gran % 0.0 Neutrophils % 69.0 Band Neutrophils % 3 Lymphocytes % 20.0 Monocytes % 4.0 Eosinophils % 4.0 Basophils % 0.0 Nucleated RBC % 0.0 Absolute Neutrophils 11.59 H Absolute Lymphocytes 3.22 Absolute Monocytes 0.64 Absolute Eosinophils 0.64 Absolute Basophils 0.00 RBC Morphology Normal Sodium 140 Potassium 3.3 L Chloride 113 H Carbon Dioxide 15.3 L Anion Gap 11.7 H BUN 5 L Creatinine 0.6 Est GFR (CKD-EPI 2020) 114.15 Glucose 98 Calcium 7.8 L Random Vancomycin 6.1 Urine Legionella Ag Negative Time Spent with Patient Time Spent with Patient: >50 minutes Time was spent: preparing to see the patient(eg.review tests), obtaining and/or reviewing separately otained hiistory, ordering medications,tests, procedures, referring, communicating with other health childcare aide, indepentently interpreting results, counseling the patient and care coordination
[2024-04-03] MEDS: predniSONE 20 MG TAB 40 MG PO (15:01)
[2024-04-03] MEDS: Albuterol/Ipratropium 3 ML UPD VIAL UPD ×2 (15:09→18:08)
[2024-04-03] MEDS: traZODone 50 MG TAB PO (20:11)
[2024-04-03] MEDS: Enoxaparin 40 MG/0.4 ML SYR SC (22:17)
[2024-04-04] VITALS (15 sets, daily range): BP systolic 100–111; BP diastolic 60–70; PULSE 70–99; RESP 2–20; TEMP 36.5–37.2; O2SAT 95–100
[2024-04-04] MEDS: Ketorolac 15 MG/ML VIAL IVP ×5 (02:11→21:41)
[2024-04-04] MEDS: CEFEPIME 2 GM in Normal Saline 100 ML IVPB ×3 (02:11→17:34)
[2024-04-04] MEDS: Loperamide 2 MG CAP PO ×3 (02:11→17:35)
[2024-04-04] MEDS: Cyclobenzaprine 10 MG TAB PO ×4 (02:18→21:40)
[2024-04-04] MEDS: DOXYCYCLINE 100 MG in Normal Saline 100 ML IVPB ×2 (03:20→14:14)
[2024-04-04] MEDS: Albuterol HFA 8 GM 60 PUFF INH IH ×2 (03:30→20:48)
[2024-04-04 07:09] LABS: Iron 74 ug/dL (50-170); Total Iron Binding Capacity 81 ug/dL (250-450); Transferrin Sat 91 % (15-50)
[2024-04-04] MEDS: predniSONE 20 MG TAB 40 MG PO (07:48)
[2024-04-04] MEDS: Potassium Chloride 20 MEQ TABCR 40 MEQ PO ×4 (07:48→20:23)
[2024-04-04] MEDS: Spironolactone 50 MG TAB 100 MG PO ×2 (07:49→20:24)
[2024-04-04] MEDS: guaiFENesin 600 MG TABCR PO ×2 (07:49→20:24)
[2024-04-04] MEDS: Normal Saline Flush 10 ML SYR IVP ×2 (07:49→20:24)
[2024-04-04] MEDS: Pantoprazole 40 MG TABCR PO (07:49)
[2024-04-04] MEDS: Albuterol/Ipratropium 3 ML UPD VIAL UPD ×4 (08:09→23:00)
--- NOTE | 2024-04-04 09:13 | PDOC.CMPRO ---
Date of service: 04/04/24 Time of Service: 09:13 Care Management Progress Note Progress Note Text Progress Note Text: Dolly was resting when CM met with her, and she awakened easily to talk to CM. She stated that she has everything she needs in the community, and that she is pleased with her experience at [facility]. RT entered the room to support her with a breathing treatment; CM did not delay this care. CM will continue to follow. Discharge Potential Discharge Needs: PCP F/U Appt Anticipated Barriers to Discharge: None Identified Patient/Family Education Needs: Review discharge instructions, discuss Ask Me Three Transportation: Private vehicle Plan: Anticipate Dolly will be discharged home with no new services when medically stable. She will follow up with her community providers and plan of care and transport via private vehicle with friend/family. CM will follow and continue to support discharge needs. SDOH(Care Management) Screening Will the Patient Participate in the Screening?: Yes Do you worry about having a steady place to live?: no In the past 12 months, have you had to go without electric, gas, oil or water in your home?: no Have you or anyone in your house had to go without enough food to eat?: no Has lack of transportation kept you from medical appointments or from doing things needed for daily living?: no Has anyone in your support network made you feel unsafe for any reason?: no
[2024-04-04 10:27] LABS: Abs Immature Grans 1.47 10^3/uL (0.0-0.06); Absolute Neutrophil Count 20.76 10^3/uL (1.2-6.7); Basophils % 0.3 %; Eosinophils % 0.1 %; HGB 8.5 g/dL (11.2-15.7); Immature Grans % 5.8 %; Lymphocytes % 6.5 %; MCH 30.4 pg (27.0-33.0); MCHC 32.7 % (32.0-36.0); MCV 93 fL (80-95); MPV 10.4 fL (8.0-11.0); Monocytes % 5.1 %; Neutrophils % 82.2 %; Platelet Count 313 10^3/uL (130-400); RDW 15.9 % (11.7-14.6); RDW-SD 54.4 fL
[2024-04-04 10:32] LABS: Absolute Basophil Count 0.08 10^3/uL (0.0-0.2); Absolute Eosinophil Count 0.03 10^3/uL (0.0-0.7); Absolute Lymphocyte Count 1.64 10^3/uL (1.2-3.4); Absolute Monocyte Count 1.29 10^3/uL (0.1-0.8)
[2024-04-04 10:33] LABS: WBC 25.25 10^3/uL (4.4-10.8)
[2024-04-04] MEDS: Amphet Asp/Amphet/D-Amphet 10 MG TAB 20 MG PO (11:44)
[2024-04-04] MEDS: Acyclovir 400 MG TAB PO ×2 (15:59→20:24)
--- NOTE | 2024-04-04 17:22 | CHAPLAIN ---
Dolly was up in the chair putting on socks when I arrived. She said she remembered meeting me last time she was here. She wasn't interested in further conversation. She was pleasant and thanked me for stopping in.
--- NOTE | 2024-04-04 18:28 | W.PM.PROGNOT ---
Date of Service Date of service: 04/04/24 Time of Service: 11:15 Assessment and Plan Assessment and plan (1) Sepsis: Status: Acute Assessment and plan: Met sepsis criteria on admission with tachycardia fever and low blood pressures, elevated WBC. She responded to IV fluid bolus in the emergency room. No signs of sepsis at this time, but WCC^ today. Continues on cefepime and doxycycline. WBC increased to 25 today. Repeat in am. MRSA swab negative, stopped Vanco 04/02 Blood cultures are NG72h Consider transition to po medications tomorrow and possible discharge as patient is stable. (2) Pneumonia: Status: Acute Assessment and plan: Bilateral upper and lower lobe infiltrates. New in the last month. Patient was hospitalized 1 week prior to presentation so there was concern for hospital-acquired pneumonia in a patient who has a history of IV drug use. Broad-spectrum antibiotic coverage on admission with cefepime/vancomycin/doxy. She was never hypoxic, not c/w something like PJP. Given her tobacco use history will continue updrafts with albuterol and DuoNebs, made scheduled 04/03, prednisone added. With GI issues, legionaires antigen sent. Vanco stopped on 04/02. (3) ADHD: Status: Acute Assessment and plan: Continue on the dextroamphetamine daily. 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 Her next is due on 04/05/2024, but we will change to SL Suboxone as her severe diarrhea started after the transition to injectable. (5) Continuous tobacco abuse: Status: Acute Assessment and plan: NRT, support, discussed veranicline. (6) Chronic hypokalemia: Status: Acute Assessment and plan: Patient has chronic hypokalemia due to diarrhea. add probiotics to regimen (7) Diarrhea: Assessment and plan: chronic over months. c. diff, stool bacteria, and parasitic testing negative. Has colo pending at [facility]. Mede lomotil and loperamide scheduled. Infectious w/u negative. History of pancreatitis, elastase still pending from 03/23, per lab sent to [place] and should result 04/06. As above, plan to go back to SL suboxone as this may help. add probiotics Qualifiers: Diarrhea type: functional diarrhea Qualified Code(s): K59.1 - Functional diarrhea (8) Splenic vein thrombosis: Status: Acute Assessment and plan: noted on recent admission, not on anticoagulated yet. Secondary to pancreatitis. Could consider anticoagulation, though with anemia I would be concerned about risk of bleed. Consider anticoagulation if no occult blood in stool. (9) Anemia: Status: Chronic Assessment and plan: This developed associated with recent illnesses. Get iFOB and iron levels. (10) DVT prophylaxis: Status: Resolved Assessment and plan: on enoxaparin. Subjective Subjective Interval history since last seen: Clinical course reviewed including notes, orders, labs, vitals, meds, imaging, and cultures. Care is discussed with primary nurse. Patient denies fevers, chills, nausea, vomiting or rash. WCC ^ to 25K today. reports genital herpes outbreak, Rx acyclovir. A 14 point review of systems was performed and negative except as noted below and in the HPI. Exam Narrative Exam Narrative: Patient is alert and oriented x 3 and in no acute distress HEENT: Neck supple, MM pink and moist, conjunctiva non-injected, sclera non-icteric, Pupils equal and reactive to light symmetrically, no JVD, no A waves. No thyromegaly. No carotid bruit CHEST: Bilaterally symmetrical with inspiration and expiration. No use of accessory muscles of respiration. No nasal flaring. RESP: Clear to auscultation bilaterally, no rales, rhonchi or wheeze, no pleural friction rub, no post-tussive crackles or apical rales. COR: RRR without murmur, normal S1, S2, no rub or gallop ABDOMEN: Soft, non tender diffusely, normally active bowel sounds diffusely, No hepatosplenomegaly, No abdominal bruit, no masses, no tenderness on deep abdominal palpation. G/U: deferred Rectal: deferred MUSCULOSKELETAL: Bilaterally symmetrical, no muscle belly tenderness or mass DERMIS: Skin warm and dry, no ulcers or rashes, EXTREMITIES: No cyanosis, clubbing or edema, no gross deformities of the large or small joints of the upper or lower extremities. NEUROLOGICAL: Cranial nerves intact II-XII without notable deficit, No peripheral neurosensory or motor deficits noted. LYMPH: No anterior or posterior cervical, no supraclavicular, No axillary, no epitrochlear or femoral lymphadenopathy. Objective Last Vital Signs Temp 37.2 C 04/04/24 15:48 Pulse 94 H 04/04/24 18:25 Resp 20 04/04/24 18:17 BP 111/70 04/04/24 15:48 Pulse Ox 99 04/04/24 18:25 Laboratory Results - last 24 hr 04/04/24 04/04/24 06:33 10:16 WBC 25.25 H* RBC 2.80 L Hgb 8.5 L Hct 26.0 L MCV 93 MCH 30.4 MCHC 32.7 RDW 15.9 H Plt Count 313 MPV 10.4 Immature Gran % 5.8 Neutrophils % 82.2 Lymphocytes % 6.5 Monocytes % 5.1 Eosinophils % 0.1 Basophils % 0.3 Nucleated RBC % 0.0 Absolute Neutrophils 20.76 H Absolute Lymphocytes 1.64 Absolute Monocytes 1.29 H Absolute Eosinophils 0.03 Absolute Basophils 0.08 Iron 74 TIBC 81 L Transferrin % Sat 91 H Time Spent with Patient Time Spent with Patient: 35-49 minutes Time was spent: preparing to see the patient(eg.review tests), obtaining and/or reviewing separately otained hiistory, ordering medications,tests, procedures, referring, communicating with other health healthcare administration intern, indepentently interpreting results, counseling the patient and care coordination
[2024-04-04] MEDS: Benzonatate 100 MG CAP PO (20:24)
[2024-04-04] MEDS: traZODone 50 MG TAB PO (20:24)
[2024-04-04] MEDS: Enoxaparin 40 MG/0.4 ML SYR SC (21:40)
[2024-04-05] VITALS (9 sets, daily range): BP systolic 117–139; BP diastolic 77–106; PULSE 77–97; RESP 16–18; TEMP 35.9–37; O2SAT 81–100
[2024-04-05] MEDS: Loperamide 2 MG CAP PO ×3 (01:53→18:03)
[2024-04-05] MEDS: CEFEPIME 2 GM in Normal Saline 100 ML IVPB ×3 (01:54→18:03)
[2024-04-05] MEDS: DOXYCYCLINE 100 MG in Normal Saline 100 ML IVPB ×2 (02:35→13:29)
[2024-04-05] MEDS: Prochlorperazine 5 MG TAB PO ×2 (06:03→23:50)
[2024-04-05] MEDS: Ketorolac 15 MG/ML VIAL IVP ×2 (06:18→20:08)
[2024-04-05] MEDS: Cyclobenzaprine 10 MG TAB PO ×2 (06:18→20:28)
[2024-04-05] MEDS: Normal Saline Flush 10 ML SYR IVP ×2 (06:19→21:07)
[2024-04-05 06:37] LABS: HGB 9.4 g/dL (11.2-15.7); MCH 30.9 pg (27.0-33.0); MCHC 32.4 % (32.0-36.0); MCV 95 fL (80-95); MPV 10.7 fL (8.0-11.0); Platelet Count 317 10^3/uL (130-400); RBC 3.04 10^6/uL (3.93-5.22); RDW-SD 56.6 fL
[2024-04-05 06:49] LABS: WBC 25.47 10^3/uL (4.4-10.8)
[2024-04-05 07:00] LABS: Absolute Eosinophil Count 0.25 10^3/uL (0.0-0.7); Absolute Lymphocyte Count 1.27 10^3/uL (1.2-3.4); Absolute Monocyte Count 0.25 10^3/uL (0.1-0.8); Absolute Neutrophil Count 22.92 10^3/uL (1.2-6.7); Bands % 2 %; Diff Comment Manual Differential; Metamyelocytes % 3; RBC Morphology Normal
[2024-04-05] MEDS: predniSONE 20 MG TAB 40 MG PO (08:36)
[2024-04-05] MEDS: guaiFENesin 600 MG TABCR PO ×2 (08:36→21:07)
[2024-04-05] MEDS: Pantoprazole 40 MG TABCR PO (08:36)
[2024-04-05] MEDS: Spironolactone 50 MG TAB 100 MG PO ×2 (08:36→20:08)
[2024-04-05] MEDS: Acyclovir 400 MG TAB PO ×3 (08:36→20:08)
--- NOTE | 2024-04-05 08:41 | NUR.NOTE ---
Patient calling out to RN and HEEL SEAT SANDER about intense pain in her pancreas. Night RN administered compazine for nausea. RN assessed patient and patient reported that dilaudid is what she normally takes for pain and that it is the only thing that works for her. Provider notified. Patient refused morning cares, morning medications, and nebulizer treatment from RT because of pain. RN called provider and sent a [email or web address] message. Charge nurse also notified. HEEL SEAT SANDER and charge nurse given ice packs and then heat packs for pain. Patient crying and yelling in pain. RN was able to give morning medications to patient but patient refused potassium pills. RN waiting to hear from provider on plan for pain management. Nursing Note:
--- NOTE | 2024-04-05 08:55 | NUR.NOTE ---
Nursing Note: Pt has been refusing meds and treatments this morning d/t not getting enough pain control, which staff have been working on with Hospitalist. She was just up in the hallway walking barefoot, stopped by staff to place yellow socks, which she complied with.
--- NOTE | 2024-04-05 09:10 | PGE_ITS ---
Date of Service Date of service: 04/05/24 Time of Service: 09:11 Assessment and Plan Assessment and plan (1) Pancreatic pseudocyst: Assessment and plan: Met sepsis criteria on admission with tachycardia fever and low blood pressures, elevated WBC. Now with no signs of sepsis, but elevated & persistent ^ WCC Complaining of ^ abdominal and back pain, requesting pain meds. Dilaudid 2mg given with good result. Howver patient continues to be uncomfortable. Continues on cefepime and doxycycline. WBC increased to 25.4 today. Repeat in am. Will change jarett cefepime/doxy to ertapenem for better coverage of possible anaerobic involvement in pancreas MRSA swab negative, stopped Vanco 04/02 Blood cultures are NG96h Will re-image CT Abdomen with IV contrast to evaluate for possible extension of pancreatic abscesses noted on Mar [address] scan of the abdomen and pelvis was performed without contrast This scan is remarkable for significant worsening of the cystic structures in the pancreas. Case is discussed with Dr. Verdin of general surgery. He reviewed the CT scans and not able to do any interventions here. He suggested I call [facility]. I had the imaging files sent to [facility]. Gastroenterology declined transfer due to no beds available. I then spoke with Dr. Campos of interventional radiology who is reading of the film was more concerning for hemorrhage into the cysts and therefore a drainage procedure percutaneously would be relatively contraindicated. We are making the patient n.p.o. at this time and increasing pain medication frequency at the Dilaudid 2 mg every 3 hours. Patient continues to be uncomfortable at best. The imaging findings and discussions with the referral hospital are discussed in detail with the patient. An opportunity ask questions was made. (2) Pneumonia: Status: Acute Assessment and plan: continues on IV cefepime and doxycycline. This will be changed to once daily ertapenem 1 g IV every 24 hours for better coverage of the pancreas Stable. Today is D#4 of IV antibiotics. (3) ADHD: Status: Acute Assessment and plan: Continue on the dextroamphetamine daily. Qualifiers: Attention deficit-hyperactivity disorder type: combined inattentive- hyperactive Qualified Code(s): F90.2 - Attention-deficit hyperactivity disorder, combined type (4) Opioid use disorder in remission: Status: Acute Assessment and plan: She gets monthly Brixadi injections with next dose scheduled for 04/05/2024. This med is changed to SL Suboxone as her severe diarrhea started after the transition to injectable. Will follow her response to the change in this medication. (5) Continuous tobacco abuse: Status: Acute Assessment and plan: NRT, support, discussed veranicline. (6) Chronic hypokalemia: Status: Acute Assessment and plan: Patient has chronic hypokalemia due to diarrhea. add probiotics to regimen (7) Diarrhea: Assessment and plan: chronic over months. c. diff, stool bacteria, and parasitic testing negative. Has colo pending at [facility]. Mede lomotil and loperamide scheduled. Infectious w/u negative. History of pancreatitis, elastase still pending from 03/23, per lab sent to [place] and should result 04/06. As above, plan to go back to SL suboxone as this may help. add probiotics. Loose BM's have returned. Qualifiers: Diarrhea type: functional diarrhea Qualified Code(s): K59.1 - Functional diarrhea (8) Splenic vein thrombosis: Status: Acute Assessment and plan: noted on recent admission, not on anticoagulated yet. Likely a complication of her prior pancreatitis. Could consider anticoagulation, though with anemia I would be concerned about risk of bleed. Consider anticoagulation if no occult blood in stool. (9) Anemia: Status: Chronic Assessment and plan: This developed associated with recent illnesses. Get iFOB and iron levels. (10) DVT prophylaxis: Status: Resolved Assessment and plan: on enoxaparin. (11) Opioid dependence on agonist therapy: (12) Chronic pancreatitis: Qualifiers: Pancreatitis type: alcohol induced Qualified Code(s): K86.0 - Alcohol- induced chronic pancreatitis (13) Sepsis: Status: Acute Assessment and plan: resolved sepsis syndrome. Subjective Subjective Interval history since last seen: Clinical course reviewed including notes, orders, labs, vitals, meds, imaging, and cultures. Care is discussed with primary nurse. Patient denies fevers, chills, nausea, vomiting or rash. She is completely anorexic and complains of severe and worsening abdominal pain. She reports band like radiation of pain across flank to back, worse over night. WCC remains elevated to 25.4K today without symptoms of fevers or chills. reported genital herpes outbreak yesterday, Started on PO acyclovir, today completing day #1 A 14 point review of systems was performed and negative except as noted below and in the HPI. Exam Narrative Exam Narrative: Patient is alert and oriented x 3 and in distress of abdominal and band like pain extending to back. HEENT: Neck supple, MM pink and moist, conjunctiva non-injected, sclera non- icteric, Pupils equal and reactive to light symmetrically, no JVD, no A waves. No thyromegaly. No carotid bruit CHEST: Bilaterally symmetrical with inspiration and expiration. No use of accessory muscles of respiration. No nasal flaring. RESP: Clear to auscultation bilaterally, no rales, rhonchi or wheeze, no pleural friction rub, no post-tussive crackles or apical rales. COR: RRR without murmur, normal S1, S2, no rub or gallop ABDOMEN: Soft, very tender diffusely in mid epigastric area, much more tender than yesterday. Bowel sounds hypoactive diffusely. Cannot palpate abdomen due to extreme pain. No frost-ying's sign and no shanna's sign. G/U: deferred Rectal: deferred MUSCULOSKELETAL: Bilaterally symmetrical, no muscle belly tenderness or mass DERMIS: Skin warm and dry, no ulcers or rashes, EXTREMITIES: No cyanosis, clubbing or edema, no gross deformities of the large or small joints of the upper or lower extremities. NEUROLOGICAL: Cranial nerves intact II-XII without notable deficit, No peripheral neurosensory or motor deficits noted. LYMPH: No anterior or posterior cervical, no supraclavicular, No axillary, no epitrochlear or femoral lymphadenopathy. Objective Last Vital Signs Temp 36.2 C L 04/05/24 06:17 Pulse 77 04/05/24 06:17 Resp 18 04/05/24 06:17 BP 117/77 04/05/24 06:17 Pulse Ox 99 04/05/24 06:17 Laboratory Results - last 24 hr 04/04/24 04/05/24 10:16 06:20 WBC 25.25 H* 25.47 H* RBC 2.80 L 3.04 L Hgb 8.5 L 9.4 L Hct 26.0 L 29.0 L MCV 93 95 MCH 30.4 30.9 MCHC 32.7 32.4 RDW 15.9 H 16.0 H Plt Count 313 317 MPV 10.4 10.7 Immature Gran % 5.8 0.0 Neutrophils % 82.2 88.0 Band Neutrophils % 2 Lymphocytes % 6.5 5.0 Monocytes % 5.1 1.0 Eosinophils % 0.1 1.0 Basophils % 0.3 0.0 Metamyelocytes % 3 Nucleated RBC % 0.0 0.0 Absolute Neutrophils 20.76 H 22.92 H Absolute Lymphocytes 1.64 1.27 Absolute Monocytes 1.29 H 0.25 Absolute Eosinophils 0.03 0.25 Absolute Basophils 0.08 0.00 RBC Morphology Normal Time Spent with Patient Time Spent with Patient: >50 minutes Time was spent: preparing to see the patient(eg.review tests), obtaining and/or reviewing separately otained hiistory, ordering medications,tests, procedures, referring, communicating with other health farm or ranch animal caretaker (multiple calls to transfer line at [facility]), indepentently interpreting results, counseling the patient and care coordination
[2024-04-05] MEDS: HYDROmorphone 2 MG/ML SYR IM (09:13)
[2024-04-05 11:35] LABS: ALT 25 U/L (14-59); AST 44 U/L (15-37); Albumin 1.3 g/dL (3.4-5.0); Alkaline Phosphatase 162 U/L (46-116); Amylase 42 U/L (25-115); Anion Gap 10.3 mmol/L (3-11); BUN 11 mg/dL (7-18); CO2 15.7 mmol/L (21.0-32.0); CREATININE 0.7 mg/dL (0.55-1.02); Chloride 109 mmol/L (98-107); Estimated GFR 109.98 (mL/min/1.73m2); Glucose 88 mg/dL (74-106); Lipase 162 U/L (16-77); Potassium 4.9 mmol/L (3.5-5.1); Sodium 135 mmol/L (136-145); Total Protein 4.8 g/dL (6.4-8.2)
[2024-04-05 11:43] LABS: Calcium 8.6 mg/dL (8.5-10.1)
--- NOTE | 2024-04-05 11:54 | PDOC.CMPRO ---
Date of service: 04/05/24 Time of Service: 11:54 Care Management Progress Note Progress Note Text Progress Note Text: Dolly was lying in bed when CM met with her. She informed CM that she was in a lot of pain and was nauseated. Dolly's WBC increased to over 25 yesterday and today and additional imaging was ordered. A Ct scan of her abdomen indicated there has been Interval increase in size of pancreatic pseudocyst superior to the tail, There is increased attenuation within the pseudocyst which could indicate hemorrhagic components versus abscess. She is now NPO. Discharge Potential Discharge Needs: PCP F/U Appt Anticipated Barriers to Discharge: Medical Status Patient/Family Education Needs: Review discharge instructions, discuss Ask Me Three Plan: Anticipate Dolly will be discharged home with no new services when medically stable. She will follow up with her community providers and plan of care and transport via private vehicle with friend/family. CM will follow and continue to support discharge needs. SDOH(Care Management) Screening Will the Patient Participate in the Screening?: Yes Do you worry about having a steady place to live?: no In the past 12 months, have you had to go without electric, gas, oil or water in your home?: no Have you or anyone in your house had to go without enough food to eat?: no Has lack of transportation kept you from medical appointments or from doing things needed for daily living?: no Has anyone in your support network made you feel unsafe for any reason?: no
[2024-04-05] MEDS: Normal Saline - Diluent 50 ML VIAL IJ (12:09)
[2024-04-05] MEDS: Omnipaque 350 MG/ML 500 ML BTL-Imaging package 85 ML IJ (12:12)
--- NOTE | 2024-04-05 12:13 | DI.CT_ITS ---
Exam(s) CT ABDOMEN PELVIS W EXAM: CT ABDOMEN PELVIS W CLINICAL HISTORY: [facility] in patient with pancreatitis, ? abscess. TECHNIQUE: Imaging Protocol: Axial computed tomography images with coronal and sagittal reformatted images were created and reviewed CONTRAST MATERIAL: Intravenous: Omnipaque 350 Contrast volume:85 ml Oral: no COMPARISON: CT CT ABDOMEN PELVIS W from 03/21/[address] CHEST W from 03/31/2024 FINDINGS: ABDOMEN and PELVIS: Lung Bases: small bilateral pleural effusions, new when compared with recent chest CT. Bilateral pat kaylynn infiltrates with some improvement when compared with prior.. Liver: Mild to moderate hepatic steatosis with apparent improvement from the prior exam. No suspicio us mass. Gallbladder and biliary tract: No radiodense calculus. No biliary dilation. Pancreas: Significant interval increase in size of pancreatic pseudocyst seen superior to the body wh ich now measures 7 x 5 cm compared with 5 x 3 cm on the prior exam. It shows increased attenuation c ompared to the prior exam which could indicate a hemorrhagic components versus abscess however there are no air bubbles.. No evidence of active contrast extravasation. Choose 2 the pseudocyst previous ly noted in the pancreatic head has decreased in size. Spleen: Normal. Kidneys: Normal size, contour and axis. No radiodense stones. No obstructive uropathy. No suspicious masses seen. Adrenal glands: No masses seen. Vasculature: Abdominal aorta non-dilated. Splenic vein thrombosis again noted. Multiple collatera l seen in the upper abdomen. Soft tissues: Diffuse body wall edema. Air bubbles in the anterior abdominal wall consistent with in jection sites. Bladder: No gross wall thickening. No calculi.No focal mass. Bowel: The larger pancreatic pseudocyst abuts the stomach. There is fold thickening which was not ap parent previously. Colon is mainly collapsed. There is wall thickening throughout more apparent in the descending and sigmoid region. Small bowel is unremarkable. Appendix normal. Peritoneal cavity: No ascites. No focal collection. Stranding in the fat around the pancreas. Bones: Unremarkable for age. Reproductive organs: Unremarkable. IUD noted. Lymph nodes: No pathologically enlarged lymph nodes. IMPRESSION:: Interval increase in size of pancreatic pseudocyst superior to the tail, abutting the stomach. There is increased attenuation within the pseudocyst which could indicate hemorrhagic compo nents versus abscess however there are no air bubbles. There is now gastric fold thickening consiste nt with adjacent inflammation. Increased bilateral pleural effusions and body wall edema. Mild decrease in prominence of previously noted basilar pulmonary infiltrates. RADIATION DOSE DELIVERED: 275.82mGy.cm Total DLP DATA REPOSITORY: All CT scans at this facility are submitted to the National Radiology Data Registry (NRDR) Dose Index Registry (DIR) with the [employer] (ACR). RADIATION OPTIMIZATION: All CT scans at this facility use at least one of these dose optimization te chniques: automated exposure control; mA and/or kV adjustment per patient size (includes targeted exa ms where dose is matched to clinical indication); or iterative reconstruction.
[2024-04-05] MEDS: HYDROmorphone 2 MG/ML SYR IVP ×5 (12:15→23:48)
[2024-04-05] MEDS: Potassium Chloride 20 MEQ TABCR 40 MEQ PO ×3 (12:17→23:51)
[2024-04-05] MEDS: Amphet Asp/Amphet/D-Amphet 10 MG TAB 20 MG PO (12:18)
[2024-04-05] MEDS: Albuterol/Ipratropium 3 ML UPD VIAL UPD ×2 (13:13→20:30)
[2024-04-05] MEDS: Nicotine 14 MG/24 HR PATCH TD (18:02)
[2024-04-05] MEDS: Buprenorphine/Naloxone 4 mg/1 mg FILM 1 EACH SL (20:08)
[2024-04-05] MEDS: ERTAPENEM 1 GM in Normal Saline 50 ML IVPB (20:27)
[2024-04-05] MEDS: Enoxaparin 40 MG/0.4 ML SYR SC (21:47)
[2024-04-05] MEDS: traZODone 50 MG TAB PO (21:48)
[2024-04-06] VITALS (7 sets, daily range): BP systolic 104–131; BP diastolic 79–98; PULSE 84–113; RESP 14–18; TEMP 36.6–37.2; O2SAT 90–99
[2024-04-06] MEDS: HYDROmorphone 2 MG/ML SYR IVP ×11 (02:48→23:08)
[2024-04-06] MEDS: Normal Saline Flush 10 ML SYR IVP ×5 (02:52→20:03)
[2024-04-06] MEDS: Loperamide 2 MG CAP PO ×2 (02:52→12:03)
[2024-04-06] MEDS: Ketorolac 15 MG/ML VIAL IVP ×2 (06:08→14:01)
[2024-04-06] MEDS: Spironolactone 50 MG TAB 100 MG PO ×2 (08:41→20:02)
[2024-04-06] MEDS: predniSONE 20 MG TAB 40 MG PO (08:41)
[2024-04-06] MEDS: Buprenorphine/Naloxone 4 mg/1 mg FILM 1 EACH SL (08:41)
[2024-04-06] MEDS: Potassium Chloride 20 MEQ TABCR 40 MEQ PO ×4 (08:41→21:05)
[2024-04-06] MEDS: Acyclovir 400 MG TAB PO ×3 (08:42→20:02)
[2024-04-06] MEDS: guaiFENesin 600 MG TABCR PO ×2 (08:42→20:02)
[2024-04-06] MEDS: Pantoprazole 40 MG TABCR PO (08:42)
[2024-04-06] MEDS: Amphet Asp/Amphet/D-Amphet 10 MG TAB 20 MG PO (12:04)
[2024-04-06] MEDS: Benzonatate 100 MG CAP PO (13:00)
[2024-04-06] MEDS: Prochlorperazine 5 MG TAB PO (13:00)
[2024-04-06 13:15] LABS: Abs Immature Grans 1.47 10^3/uL (0.0-0.06); Absolute Basophil Count 0.09 10^3/uL (0.0-0.2); Basophils % 0.3 %; HCT 27.9 % (36.0-46.0); HGB 9.2 g/dL (11.2-15.7); MCH 30.6 pg (27.0-33.0); MCV 93 fL (80-95); MPV 10.5 fL (8.0-11.0); Nucleated RBC 0.1 % (0.0-0.3); Platelet Count 420 10^3/uL (130-400); RBC 3.01 10^6/uL (3.93-5.22); RDW 15.6 % (11.7-14.6); RDW-SD 52.7 fL
[2024-04-06 13:20] LABS: ALT 25 U/L (14-59); AST 31 U/L (15-37); Albumin 1.4 g/dL (3.4-5.0); Alkaline Phosphatase 177 U/L (46-116); Anion Gap 10.3 mmol/L (3-11); BUN 14 mg/dL (7-18); Bilirubin, Total 0.44 mg/dL (0.2-1.0); CO2 16.7 mmol/L (21.0-32.0); CREATININE 0.7 mg/dL (0.55-1.02); Calcium 8.5 mg/dL (8.5-10.1); Chloride 110 mmol/L (98-107); Estimated GFR 109.98 (mL/min/1.73m2); Glucose 110 mg/dL (74-106); Potassium 5.1 mmol/L (3.5-5.1); Sodium 137 mmol/L (136-145); Total Protein 5.4 g/dL (6.4-8.2)
[2024-04-06 13:34] LABS: WBC 31.64 10^3/uL (4.4-10.8)
[2024-04-06 13:35] LABS: Bands % 1 %
[2024-04-06 13:36] LABS: Atypical Lymphocytes % 2 %
[2024-04-06 13:37] LABS: Absolute Monocyte Count 0.95 10^3/uL (0.1-0.8)
[2024-04-06 13:38] LABS: Diff Comment Manual Differential
[2024-04-06 13:39] LABS: Metamyelocytes % 1
[2024-04-06] MEDS: Normal Saline 10 ML VIAL IJ (14:02)
--- NOTE | 2024-04-06 14:58 | PDOC.CMPRO ---
Date of service: 04/06/24 Time of Service: 14:59 Care Management Progress Note Progress Note Text Progress Note Text: Dolly was lying in bed when CM met with her. She was holding her abdomen and, when asked, confirmed that she was in pain. Dolly has pancreatitis and recent imaging indicates that the size of previously identified pseudocysts has increased considerably. There is concern that there is hemorrhaging into the cysts. Attempt were made to transfer Dolly to [facility] but they have no beds. Per IR at [facility], a drainage procedure would not be advised at this time. Dolly informed CM that her pain medication takes the edge off of her pain but it does not completely go away. She stated that she is constantly uncomfortable, even with Toradol given between doses of Dilaudid. Repeat blood work was done today which revealed that her WBC continues to climb and is now 31.64, up from 25.47 yesterday. Her H&H remains fairly stable at 9.2/27.9, she is afebrile and her blood pressure is WNL. Dolly is now NPO. SDOH(Care Management) Screening Will the Patient Participate in the Screening?: Yes Do you worry about having a steady place to live?: no In the past 12 months, have you had to go without electric, gas, oil or water in your home?: no Have you or anyone in your house had to go without enough food to eat?: no Has lack of transportation kept you from medical appointments or from doing things needed for daily living?: no Has anyone in your support network made you feel unsafe for any reason?: no
[2024-04-06] MEDS: diazePAM 10 MG/2 ML SYR 5 MG IVP (15:41)
[2024-04-06 16:07] LABS: Absolute Neutrophil Count 26.89 10^3/uL (1.2-6.7)
[2024-04-06 16:08] LABS: Absolute Lymphocyte Count 3.48 10^3/uL (1.2-3.4)
--- NOTE | 2024-04-06 17:20 | W.PM.PROGNOT ---
Date of Service Date of service: 04/06/24 Time of Service: 13:50 Assessment and Plan Assessment and plan (1) Pancreatic pseudocyst: Assessment and plan: Hemorragic component. Pain better controlled on more frequent IV dilaudid + diazepam. orders entered for scheduled diazepam. We again discussed use of a soft feeding tube and enteral nutrition. Patient continues to decline placement of feeding tube. She continues to lose weight. Discussed TPN with pharmacy, however enteral nutrition would be best (2) Chronic pancreatitis: Assessment and plan: with pseudocyst formation and hemorrage into cysts Qualifiers: Pancreatitis type: alcohol induced Qualified Code(s): K86.0 - Alcohol-induced chronic pancreatitis (3) Neutrophilic leukocytosis: Status: Acute Assessment and plan: secondary to pain and stress. Continues on IV ertapenem for possible pancreatic bacterial component (4) Splenic vein thrombosis: Status: Acute Assessment and plan: stable. (5) Pneumonia: Status: Acute Assessment and plan: Improved. No respiratory embarrassment at this time. (6) Opioid use disorder in remission: Status: Acute Assessment and plan: continue suboxone SL daily Subjective Subjective Interval history since last seen: Clinical course reviewed including notes, orders, labs, vitals, meds, imaging, and cultures. Care is discussed with primary nurse. Patient denies fevers, chills, or rash. Intense abdominal pain continues. Patient having great anxiety. Given diazepam IV earlier. IV dilaudid frequency changed to q2h. Pain better controlled. transitioned to SL suboxone yesterday from injectable. Discussed with pharmacy. WCC^ 31.6 today Continues on Ertapenem, d#2 She is completely anorexic and complains of severe and worsening abdominal pain. She reports band like radiation of pain across flank to back, worse over night. A 14 point review of systems was performed and negative except as noted below and in the HPI. Exam Narrative Exam Narrative: Patient is alert and oriented x 3 and in distress of unremitting abdominal and band like pain extending to back. HEENT: Neck supple, MM pink and moist, conjunctiva non-injected, sclera non-icteric, Pupils equal and reactive to light symmetrically, CHEST: Bilaterally symmetrical with inspiration and expiration. No use of accessory muscles of respiration. No nasal flaring. RESP: Clear to auscultation bilaterally, no rales, rhonchi or wheeze, no pleural friction rub, no post-tussive crackles or apical rales. COR: RRR without murmur, normal S1, S2, no rub or gallop ABDOMEN: Soft, very tender diffusely in mid epigastric area, much more tender than yesterday. Bowel sounds hypoactive diffusely. Cannot palpate abdomen due to extreme pain. No frost-ying's sign and no shanna's sign. G/U: deferred Rectal: deferred MUSCULOSKELETAL: Bilaterally symmetrical, no muscle belly tenderness or mass DERMIS: Skin warm and dry, no ulcers or rashes, EXTREMITIES: No cyanosis, clubbing or edema, no gross deformities of the large or small joints of the upper or lower extremities. NEUROLOGICAL: Cranial nerves intact II-XII without notable deficit, No peripheral neurosensory or motor deficits noted. LYMPH: No anterior or posterior cervical, no supraclavicular, No axillary, no epitrochlear or femoral lymphadenopathy. Objective Last Vital Signs Temp 37.2 C 04/06/24 15:10 Pulse 100 H 04/06/24 15:10 Resp 18 04/06/24 15:10 BP 112/81 04/06/24 15:10 Pulse Ox 90 L 04/06/24 15:10 Laboratory Results - last 24 hr 04/06/24 13:00 WBC 31.64 H* RBC 3.01 L Hgb 9.2 L Hct 27.9 L MCV 93 MCH 30.6 MCHC 33.0 RDW 15.6 H Plt Count 420 H MPV 10.5 Immature Gran % 0.0 Neutrophils % 84.0 Band Neutrophils % 1 Lymphocytes % 9.0 Atypical Lymphs % 2 Monocytes % 3.0 Eosinophils % 0.0 Basophils % 0.3 Metamyelocytes % 1 Nucleated RBC % 0.1 Absolute Neutrophils 26.89 H Absolute Lymphocytes 3.48 H Absolute Monocytes 0.95 H Absolute Eosinophils 0.00 Absolute Basophils 0.09 Sodium 137 Potassium 5.1 Chloride 110 H Carbon Dioxide 16.7 L Anion Gap 10.3 BUN 14 Creatinine 0.7 Est GFR (CKD-EPI 2020) 109.98 Glucose 110 H Calcium 8.5 Total Bilirubin 0.44 AST 31 ALT 25 Alkaline Phosphatase 177 H Total Protein 5.4 L Albumin 1.4 L Time Spent with Patient Time Spent with Patient: 35-49 minutes Time was spent: preparing to see the patient(eg.review tests), obtaining and/or reviewing separately otained hiistory, ordering medications,tests, procedures, referring, communicating with other health administrator health care facility, indepentently interpreting results, counseling the patient and care coordination
[2024-04-06] MEDS: Cyclobenzaprine 10 MG TAB PO (18:36)
[2024-04-06] MEDS: traZODone 50 MG TAB PO (20:02)
[2024-04-06] MEDS: ERTAPENEM 1 GM in Normal Saline 50 ML IVPB (21:00)
[2024-04-06] MEDS: Enoxaparin 40 MG/0.4 ML SYR SC (21:04)
--- NOTE | 2024-04-07 | DI.RAD_ITS ---
Exam(s) XR PORTABLE CHEST AP POST LINE EXAM: XR PORTABLE CHEST AP POST LINE CLINICAL HISTORY: picc line placement TECHNIQUE: 2D digital imaging was performed of the chest. One image was obtained. An AP view was ob tained. COMPARISON: CT CT CHEST W from 03/31/2024 CR XR CHEST 2V PA LATERAL from 03/31/[address] ABDOMEN PELVIS W from 04/05/2024 FINDINGS: MEDIASTINUM: Normal. HEART: Normal. PULMONARY VASCULATURE: Normal. LUNGS: Bilateral opacities are present in the lungs particularly the left lower lobe. PLEURAL SPACE: No pleural effusion or pneumothorax. BONE:Within normal limits for the patient's age. OTHER FINDINGS:The patient has a right PICC line. The tip is seen in the right atrium. The catheter can be retracted 1-2 cm. IMPRESSION: 1. Bilateral pulmonary infiltrates suspicious for pneumonia. 2. Right PICC line. The tip appears to be in the right atrium. The catheter can be retracted 1-2 cm . DATA REPOSITORY: RADIATION DOSE DELIVERED:
[2024-04-07] MEDS: Loperamide 2 MG CAP PO ×3 (02:10→17:00)
[2024-04-07] MEDS: diazePAM 10 MG/2 ML SYR 5 MG IVP ×2 (02:10→13:59)
[2024-04-07 03:57] VITALS: BP 103/82; PULSE 87; RESP 14; TEMP 36.7; O2SAT 97
[2024-04-07] MEDS: HYDROmorphone 2 MG/ML SYR IVP ×6 (06:13→23:00)
[2024-04-07] MEDS: Potassium Chloride 20 MEQ TABCR 40 MEQ PO ×4 (07:14→22:46)
[2024-04-07] MEDS: Pantoprazole 40 MG TABCR PO (07:14)
[2024-04-07 07:48] LABS: Abs Immature Grans 1.46 10^3/uL (0.0-0.06); HCT 28.6 % (36.0-46.0); HGB 9.4 g/dL (11.2-15.7); MCH 30.7 pg (27.0-33.0); MCHC 32.9 % (32.0-36.0); MCV 94 fL (80-95); MPV 10.5 fL (8.0-11.0); Platelet Count 419 10^3/uL (130-400); RBC 3.06 10^6/uL (3.93-5.22); RDW 15.7 % (11.7-14.6); RDW-SD 53.2 fL
[2024-04-07 07:52] LABS: WBC 33.12 10^3/uL (4.4-10.8)
[2024-04-07 08:04] LABS: ALT 19 U/L (14-59); AST 29 U/L (15-37); Albumin 1.3 g/dL (3.4-5.0); Alkaline Phosphatase 163 U/L (46-116); Anion Gap 12.6 mmol/L (3-11); BUN 11 mg/dL (7-18); Bilirubin, Total 0.49 mg/dL (0.2-1.0); CO2 17.4 mmol/L (21.0-32.0); CREATININE 0.6 mg/dL (0.55-1.02); Calcium 8.7 mg/dL (8.5-10.1); Chloride 107 mmol/L (98-107); Estimated GFR 114.15 (mL/min/1.73m2); Glucose 80 mg/dL (74-106); Sodium 137 mmol/L (136-145); Total Protein 5.4 g/dL (6.4-8.2)
[2024-04-07 08:06] VITALS: BP 112/85; PULSE 108; RESP 15; TEMP 36.9; O2SAT 96
[2024-04-07 08:14] LABS: Absolute Lymphocyte Count 2.32 10^3/uL (1.2-3.4); Absolute Monocyte Count 2.32 10^3/uL (0.1-0.8); Absolute Neutrophil Count 27.82 10^3/uL (1.2-6.7); Diff Comment Manual Differential; Myelocytes % 2; RBC Morphology Normal
[2024-04-07] MEDS: predniSONE 20 MG TAB 40 MG PO (08:17)
[2024-04-07] MEDS: Spironolactone 50 MG TAB 100 MG PO ×2 (08:17→20:35)
[2024-04-07] MEDS: guaiFENesin 600 MG TABCR PO ×2 (08:18→20:35)
[2024-04-07] MEDS: Acyclovir 400 MG TAB PO ×3 (08:18→20:35)
[2024-04-07] MEDS: Buprenorphine/Naloxone 4 mg/1 mg FILM 1 EACH SL (08:18)
[2024-04-07] MEDS: Normal Saline Flush 10 ML SYR IVP ×6 (08:18→22:27)
--- NOTE | 2024-04-07 09:03 | PDOC.CMPRO ---
Date of service: 04/07/24 Time of Service: 09:03 Care Management Progress Note Progress Note Text Progress Note Text: Dolly was lying in bed when CM met with her. Despite several attempts to chat with her, Dolly remained drowsy and did not engage. Her nurse explained that she had been medicated with IV Valium and was sleepy. Dolyl is still requiring IV narcotics for pain control. She has been needing her Dilaudid every 2 hours while awake, however she was able to go a little longer during the night. Dolly has not been eating much since admission and there is discussion about putting in a feeding tube (NG). So far Dolly has refused. It is possible TPN may be considered.has lost Discharge Potential Discharge Needs: PCP F/U Appt Anticipated Barriers to Discharge: Medical Status Patient/Family Education Needs: Review discharge instructions, discuss Ask Me Three Transportation: Private vehicle Plan: Anticipate Dolly will be discharged home with no new services when medically stable. She will follow up with her community providers and plan of care and transport via private vehicle with friend/family. CM will follow and continue to support discharge needs. SDOH(Care Management) Screening Will the Patient Participate in the Screening?: Yes Do you worry about having a steady place to live?: no In the past 12 months, have you had to go without electric, gas, oil or water in your home?: no Have you or anyone in your house had to go without enough food to eat?: no Has lack of transportation kept you from medical appointments or from doing things needed for daily living?: no Has anyone in your support network made you feel unsafe for any reason?: no
[2024-04-07 11:09] VITALS: BP 106/76; PULSE 103; RESP 16; TEMP 36.8; O2SAT 95
[2024-04-07] MEDS: Amphet Asp/Amphet/D-Amphet 10 MG TAB 20 MG PO (11:19)
[2024-04-07] MEDS: DEXTROSE 5%-LACTATED RINGERS 1,000 ML 125 ML IV (14:29)
--- NOTE | 2024-04-07 18:56 | W.PM.PROGNOT ---
Date of Service Date of service: 04/07/24 Time of Service: 10:00 Assessment and Plan Assessment and plan (1) Pancreatic pseudocyst: Assessment and plan: Hemorragic component. Pain better controlled on more frequent IV dilaudid + diazepam. continue scheduled diazepam. We again discussed use of a soft feeding tube and enteral nutrition. Patient continues to decline placement of feeding tube. She continues to lose weight. Discussed TPN with pharmacy, however enteral nutrition would be best PICC line placed today (2) Chronic pancreatitis: Assessment and plan: with pseudocyst formation and hemorrage into cysts Qualifiers: Pancreatitis type: alcohol induced Qualified Code(s): K86.0 - Alcohol-induced chronic pancreatitis (3) Neutrophilic leukocytosis: Status: Acute Assessment and plan: secondary to pain and stress. Continues on IV ertapenem for possible pancreatic bacterial component (4) Splenic vein thrombosis: Status: Acute Assessment and plan: stable. (5) Pneumonia: Status: Acute Assessment and plan: Improved. No respiratory embarrassment at this time. (6) Opioid use disorder in remission: Status: Acute Assessment and plan: continue suboxone SL daily Subjective Subjective Interval history since last seen: Clinical course reviewed including notes, orders, labs, vitals, meds, imaging, and cultures. Care is discussed with primary nurse. Patient denies fevers, chills, or rash. Intense abdominal pain continues. Patient having great anxiety. Given diazepam IV earlier. IV dilaudid frequency changed to q2h. Pain better controlled. Also receives diltiazem twice daily this is seem to help transitioned to SL suboxone yesterday from injectable. Unfortunately, without an order, though once monthly injectable was given to the patient today. Suboxone is discontinued. WCC^ 33 today Continues on Ertapenem, d#3 She is completely anorexic and complains of severe and worsening abdominal pain. She reports band like radiation of pain across flank to back, worse over night. PICC line placed today verified by x-ray Again discussed placement of soft feeding tube. We would like to place this and put her on enteric feeds. She is informed regarding the advantages of this. She seems to confuse the soft feeding tube with a nasogastric tube. A 14 point review of systems was performed and negative except as noted below and in the HPI. Exam Narrative Exam Narrative: Patient is alert and oriented x 3 and in distress of unremitting abdominal and band like pain extending to back. Exam is essentially unchanged today. HEENT: Neck supple, MM pink and moist, conjunctiva non-injected, sclera non-icteric, Pupils equal and reactive to light symmetrically, CHEST: Bilaterally symmetrical with inspiration and expiration. No use of accessory muscles of respiration. No nasal flaring. RESP: Clear to auscultation bilaterally, no rales, rhonchi or wheeze, no pleural friction rub, no post-tussive crackles or apical rales. COR: RRR without murmur, normal S1, S2, no rub or gallop ABDOMEN: Soft, very tender diffusely in mid epigastric area, much more tender than yesterday. Bowel sounds hypoactive diffusely. Cannot palpate abdomen due to extreme pain. No frost-ying's sign and no shanna's sign. G/U: deferred Rectal: deferred MUSCULOSKELETAL: Bilaterally symmetrical, no muscle belly tenderness or mass DERMIS: Skin warm and dry, no ulcers or rashes, EXTREMITIES: No cyanosis, clubbing or edema, no gross deformities of the large or small joints of the upper or lower extremities. NEUROLOGICAL: Cranial nerves intact II-XII without notable deficit, No peripheral neurosensory or motor deficits noted. LYMPH: No anterior or posterior cervical, no supraclavicular, No axillary, no epitrochlear or femoral lymphadenopathy. Objective Last Vital Signs Temp 36.8 C 04/07/24 11:09 Pulse 103 H 04/07/24 11:09 Resp 16 04/07/24 11:09 BP 106/76 04/07/24 11:09 Pulse Ox 95 04/07/24 11:09 Laboratory Results - last 24 hr 04/07/24 07:30 WBC 33.12 H* RBC 3.06 L Hgb 9.4 L Hct 28.6 L MCV 94 MCH 30.7 MCHC 32.9 RDW 15.7 H Plt Count 419 H MPV 10.5 Immature Gran % See Differential Neutrophils % 84.0 Lymphocytes % 7.0 Monocytes % 7.0 Eosinophils % 0.0 Basophils % 0.0 Myelocytes % 2 Nucleated RBC % 0.0 Absolute Neutrophils 27.82 H Absolute Lymphocytes 2.32 Absolute Monocytes 2.32 H Absolute Eosinophils 0.00 Absolute Basophils 0.00 RBC Morphology Normal Sodium 137 Potassium 5.0 Chloride 107 Carbon Dioxide 17.4 L Anion Gap 12.6 H BUN 11 Creatinine 0.6 Est GFR (CKD-EPI 2020) 114.15 Glucose 80 Calcium 8.7 Total Bilirubin 0.49 AST 29 ALT 19 Alkaline Phosphatase 163 H Total Protein 5.4 L Albumin 1.3 L Time Spent with Patient Time Spent with Patient: 35-49 minutes Time was spent: preparing to see the patient(eg.review tests), obtaining and/or reviewing separately otained hiistory, ordering medications,tests, procedures, referring, communicating with other health intensive care anaesthetist, indepentently interpreting results, counseling the patient and care coordination
--- NOTE | 2024-04-07 19:24 | NUR.NOTE ---
Patient received Brixadi 64mg/0.18 ml as per instruction given by [facility] nurse brought to this nurse by our RN Coordinator , this telegraphic typewriter operator assumed that it was verified by our provider and pharmacy here. This meds was administered on patient's rt. upper quad of abdomen, subq at 14:20 hrs. No further reactions noted. Discussion made by extension service specialist in charge to MD and nursing will continue to monitor of any actions to safe carry out orders from outside facility.
[2024-04-07 19:31] VITALS: BP 97/65; PULSE 90; RESP 16; TEMP 36.5; O2SAT 98
--- NOTE | 2024-04-07 19:46 | NUR.NOTE ---
Nursing Note: This RN talked briefly with [facility] clinic nurse afternoon of 04/07 who arrived to give Brixadi to the primary RN Reanna. This RN handed it to Reanna RN with instruction to send it to the pharmacy per hospital policy. [facility] clinic nurse spoke with Reanna RN. This RN was not able to be present for the conversation between Reanna and the [facility] clinic nurse.
[2024-04-07] MEDS: ERTAPENEM 1 GM in Normal Saline 50 ML IVPB (20:35)
[2024-04-07] MEDS: traZODone 50 MG TAB PO (20:35)
[2024-04-07] MEDS: Enoxaparin 40 MG/0.4 ML SYR SC (22:45)
[2024-04-07 23:15] VITALS: BP 90/62; PULSE 88; RESP 16; TEMP 36.3; O2SAT 96
[2024-04-08] VITALS (50 sets, daily range): BP systolic 90–114; BP diastolic 58–88; PULSE 75–95; RESP 15–22; TEMP 35.9–37.3; O2SAT 92–99
--- NOTE | 2024-04-08 | DI.CT_ITS ---
Exam(s) CT ABDOMEN PELVIS WO EXAM: CT ABDOMEN PELVIS WO CLINICAL HISTORY: hemorrhagic pancreatitis. TECHNIQUE: Imaging Protocol: Axial computed tomography images with coronal and sagittal reformatted images were created and reviewed. Oral: yes / no COMPARISON: CT CT ABDOMEN PELVIS W from 04/05/2024 FINDINGS: Exam limited due to lack of IV contrast and lack of intra-abdominal fat. Lung Bases: Trace left pleural effusion. No right pleural effusion, improvement from prior. Bilater al pulmonary infiltrates again noted. There is significant consolidation in the medial left lower lo be. Smaller area of consolidation seen medial right lower lobe. Ground-glass opacities also present bilaterally. Liver: Paddock steatosis.. No suspicious mass. Gallbladder and biliary tract: No radiodense calculus or biliary dilation. Pancreas: Increase in size of hemorrhagic pancreatic pseudocyst above the body and tail, now measurin g 8 x 6 compared with 7 x 5 on the previous exam fluid density pseudocyst noted in the head is unchan ged. Fluid is present surrounding the pancreas. Spleen: Normal. Kidneys: Normal size, contour and axis. No radiodense stones. No obstructive uropathy. No suspicious masses seen. Adrenal glands: No masses seen. Lymph nodes: Within normal limits. Vasculature: Abdominal aorta non-dilated. Soft tissues: Anasarca. Bladder: No wall thickening. No mass or calculi. Bowel: No obstruction or bowel wall thickening. Peritoneal cavity: Small amount of fluid in the low pelvis. Reproductive organs: Unremarkable. IUD. Bones: Unremarkable for age. IMPRESSION: Mild interval increase in size of hemorrhagic pseudocyst above the body and tail of the pancreas. St able low-density pseudocyst in the head of the pancreas. Surrounding inflammation. Improvement of bilateral pleural effusions. Persistent bibasilar areas of consolidation and ground-g lass opacities. RADIATION DOSE DELIVERED: Total DLP DATA REPOSITORY: All CT scans at this facility are submitted to the National Radiology Data Registry (NRDR) Dose Index Registry (DIR) with the [employer] (ACR). RADIATION OPTIMIZATION: All CT scans at this facility use at least one of these dose optimization te chniques: automated exposure control; mA and/or kV adjustment per patient size (includes targeted exa ms where dose is matched to clinical indication); or iterative reconstruction.
[2024-04-08] MEDS: DEXTROSE 5%-LACTATED RINGERS 1,000 ML 125 ML IV ×2 (00:22→18:42)
[2024-04-08] MEDS: Loperamide 2 MG CAP PO ×3 (01:29→19:39)
[2024-04-08] MEDS: diazePAM 10 MG/2 ML SYR 5 MG IVP ×2 (01:30→16:08)
[2024-04-08] MEDS: HYDROmorphone 2 MG/ML SYR IVP ×10 (01:30→23:32)
[2024-04-08 06:39] LABS: Abs Immature Grans 1.45 10^3/uL (0.0-0.06); Absolute Lymphocyte Count 2.24 10^3/uL (1.2-3.4); Basophils % 0.2 %; Eosinophils % 0.1 %; HCT 21.8 % (36.0-46.0); HGB 7.3 g/dL (11.2-15.7); Immature Grans % 4.4 %; Lymphocytes % 6.8 %; MCH 31.1 pg (27.0-33.0); MCHC 33.5 % (32.0-36.0); MCV 93 fL (80-95); MPV 10.7 fL (8.0-11.0); Monocytes % 5.1 %; Neutrophils % 83.4 %; Platelet Count 418 10^3/uL (130-400); RBC 2.35 10^6/uL (3.93-5.22); RDW 15.5 % (11.7-14.6); RDW-SD 50.9 fL
[2024-04-08 06:44] LABS: Absolute Basophil Count 0.07 10^3/uL (0.0-0.2); Absolute Eosinophil Count 0.03 10^3/uL (0.0-0.7); Absolute Monocyte Count 1.68 10^3/uL (0.1-0.8); Absolute Neutrophil Count 27.49 10^3/uL (1.2-6.7)
[2024-04-08 06:45] LABS: WBC 32.96 10^3/uL (4.4-10.8)
[2024-04-08 07:12] LABS: ALT 19 U/L (14-59); AST 25 U/L (15-37); Albumin 1.2 g/dL (3.4-5.0); Alkaline Phosphatase 126 U/L (46-116); Anion Gap 3.4 mmol/L (3-11); BUN 8 mg/dL (7-18); Bilirubin, Total 0.34 mg/dL (0.2-1.0); CO2 22.6 mmol/L (21.0-32.0); CREATININE 0.6 mg/dL (0.55-1.02); Calcium 8.4 mg/dL (8.5-10.1); Chloride 107 mmol/L (98-107); Estimated GFR 114.15 (mL/min/1.73m2); Glucose 161 mg/dL (74-106); Sodium 133 mmol/L (136-145); Total Protein 4.8 g/dL (6.4-8.2)
[2024-04-08 07:15] LABS: Diff Comment Diff Reviewed; RBC Morphology Normal
[2024-04-08 07:23] LABS: Potassium 6.1 mmol/L (3.5-5.1)
[2024-04-08] MEDS: predniSONE 20 MG TAB 40 MG PO (08:20)
[2024-04-08] MEDS: Pantoprazole 40 MG TABCR PO (08:21)
[2024-04-08] MEDS: Normal Saline Flush 10 ML SYR IVP ×3 (08:21→19:40)
[2024-04-08] MEDS: Acyclovir 400 MG TAB PO ×3 (08:21→19:39)
[2024-04-08] MEDS: Spironolactone 50 MG TAB 100 MG PO ×2 (08:22→19:39)
[2024-04-08] MEDS: Normal Saline 1,000 ML 1000 ML IV (09:12)
[2024-04-08] MEDS: guaiFENesin 600 MG TABCR PO ×2 (09:21→19:39)
[2024-04-08 09:47] LABS: Abs Immature Grans 1.82 10^3/uL (0.0-0.06); Absolute Eosinophil Count 0.04 10^3/uL (0.0-0.7); Absolute Neutrophil Count 28.61 10^3/uL (1.2-6.7); Basophils % 0.2 %; Eosinophils % 0.1 %; HCT 22.8 % (36.0-46.0); HGB 7.4 g/dL (11.2-15.7); Immature Grans % 5.2 %; Lymphocytes % 8.6 %; MCH 30.7 pg (27.0-33.0); MCHC 32.5 % (32.0-36.0); MCV 95 fL (80-95); MPV 10.8 fL (8.0-11.0); Monocytes % 4.9 %; Nucleated RBC 0.1 % (0.0-0.3); Platelet Count 469 10^3/uL (130-400); RBC 2.41 10^6/uL (3.93-5.22); RDW 15.4 % (11.7-14.6); RDW-SD 52.2 fL
[2024-04-08 09:57] LABS: Absolute Basophil Count 0.07 10^3/uL (0.0-0.2); Absolute Lymphocyte Count 3.04 10^3/uL (1.2-3.4); Absolute Monocyte Count 1.73 10^3/uL (0.1-0.8)
[2024-04-08 09:58] LABS: Diff Comment Diff Reviewed; RBC Morphology Normal; WBC 35.32 10^3/uL (4.4-10.8)
--- NOTE | 2024-04-08 10:55 | DI.VRAD_ITS ---
PROCEDURE INFORMATION: Exam: CT Abdomen And Pelvis Without Contrast Exam date and time: 04/08/2024 9:50 AM Age: 44 years old Clinical indication: Pain; Other: Hemorrhagic pancreatitis TECHNIQUE: Imaging protocol: Computed tomography of the abdomen and pelvis without contrast. Radiation optimization: All CT scans at this facility use at least one of these dose optimization techniques: automated exposure control; mA and/or kV adjustment per patient size (includes targeted exams where dose is matched to clinical indication); or iterative reconstruction. COMPARISON: CT ABDOMEN PELVIS W 04/05/2024 12:06 PM FINDINGS: Mild left greater than right basilar opacities Minimal left pleural fluid Liver: Hepatomegaly No mass. Gallbladder and biliary ducts: Gallbladder not visualized. No ductal dilation. Pancreas: Abnormally enlarged with hypodense collections in the head and body grossly stable in appearance. Peripancreatic fluid and infiltration redemonstrated Spleen: Normal. No splenomegaly. Adrenal glands: Normal. No mass. Kidneys and ureters: Normal. No hydronephrosis. Stomach and bowel: Unremarkable. No obstruction. No mucosal thickening. Appendix: No evidence of appendicitis. Intraperitoneal space: Small pelvic fluid. No free air. No significant fluid collection. Vasculature: Unremarkable. No abdominal aortic aneurysm. Lymph nodes: Unremarkable. No enlarged lymph nodes. Urinary bladder: Unremarkable as visualized. Reproductive: Intrauterine device in the uterus. Bones/joints: Unremarkable. No acute fracture. Soft tissues: Anasarca noted IMPRESSION: Grossly stable appearing pancreatitis with surrounding collections/pseudocysts as previously noted Interval decrease in left pleural effusion. Interval resolution of right pleural effusion. Mild basilar opacities remain visible Dictated and Authenticated by: Asif Farooq MD. Ordering:ARLENE Hopkins MD
[2024-04-08] MEDS: Amphet Asp/Amphet/D-Amphet 10 MG TAB 20 MG PO (11:55)
[2024-04-08] MEDS: Cyclobenzaprine 10 MG TAB PO ×2 (12:29→16:07)
--- NOTE | 2024-04-08 14:48 | PGE_ITS ---
Date of Service Date of service: 04/08/24 Time of Service: 10:00 Assessment and Plan Assessment and plan (1) Pancreatic pseudocyst: Assessment and plan: Hemorragic component. Pain continues controlled on more frequent IV dilaudid + diazepam. continue scheduled diazepam. She agreed to placement of soft feeding tube. Nutrition consult requested. We would like to place this and put her on enteric feeds. AM blood work showed a 2 point drop in Hgb. This was drawn thorough the PICC. Repeat draw to check for dilution yielded same Hgb. T&C for 2 units requested and patient now undergoing transfusion. Repeat Hgb and BMP will be checked post transfusion. Concern for increased bleeding into pseudocysts was of concern. Repeat CT scan ordered. I reviewed the images and do not note any significant change in the size of the cysts previously affected by hemorrhage. Patient remains on PO Protonix. Patient will be transferred to the intensive care unit. I personally will place a soft flexible feeding tube in place. (2) Chronic pancreatitis: Assessment and plan: with pseudocyst formation and hemorrage into cysts Qualifiers: Pancreatitis type: alcohol induced Qualified Code(s): K86.0 - Alcohol- induced chronic pancreatitis (3) Neutrophilic leukocytosis: Status: Acute Assessment and plan: secondary to pain and stress. Continues on IV ertapenem d#4 for possible pancreatic bacterial component (4) Splenic vein thrombosis: Status: Acute Assessment and plan: stable. (5) Pneumonia: Status: Acute Assessment and plan: Improved. No respiratory embarrassment at this time. Wean prednisone (6) Opioid use disorder in remission: Status: Acute Assessment and plan: suboxone stopped due to patient recieving long acting agent yesterday. Will magen patient allergic to (7) Adverse reaction to drug: Status: Acute Assessment and plan: adverse reaction to Brixadi would avoid this medication. Marked as listed allergy. concerning cause of pancreatitis in this patient. Allergy is entered. Subjective Subjective Interval history since last seen: Clinical course reviewed including notes, orders, labs, vitals, meds, imaging, and cultures. Care is discussed with primary nurse. Patient denies fevers, chills, or rash. Intense abdominal pain continues. Patient having great anxiety. Given diazepam IV earlier. IV dilaudid frequency changed to q2h. Pain better controlled. Also receives diltiazem twice daily this is seem to help transitioned to SL suboxone yesterday from injectable. Unfortunately, without an order, though once monthly injectable was given to the patient today. Suboxone is discontinued. WCC^ 35 today, Hgb 7.4, K 6.1 Continues on Ertapenem, d#4 Continues on PO Prednisone 40 mg daily Continues on Protonix PICC line placed yesterday verified by x-ray She agreed to placement of soft feeding tube. Nutrition consult requested. We would like to place this and put her on enteric feeds. AM blood work showed a 2 point drop in Hgb. This was drawn thorough the PICC. Repeat draw to check for dilution yielded same Hgb. T&C for 2 units requested and patient now undergoing transfusion. Repeat Hgb and BMP will be checked post transfusion. Concern for increased bleeding into pseudocysts was of concern. Repeat CT scan ordered. I reviewed the images and do not note any significant change in the size of the cysts previously affected by hemorrhage. Patient remains on PO Protonix. A 14 point review of systems was performed and negative except as noted below and in the HPI. Exam Narrative Exam Narrative: Patient is alert and oriented x 3, pain is much better controlled. Patient's son is at the bedside doing a coloring book his name is Riaz. Exam is essentially unchanged today. HEENT: Neck supple, MM pink and moist, conjunctiva non-injected, sclera non- icteric, Pupils equal and reactive to light symmetrically, CHEST: Bilaterally symmetrical with inspiration and expiration. No use of accessory muscles of respiration. No nasal flaring. RESP: Clear to auscultation bilaterally, no rales, rhonchi or wheeze, no pleur al friction rub, no post-tussive crackles or apical rales. COR: RRR without murmur, normal S1, S2, no rub or gallop ABDOMEN: Soft, exam seems much improved with decreased distention and her abdomen is less tender today than it has been. There is no secondary guarding. Bowel sounds present diffusely. Exam appears improved despite the laboratories. G/U: deferred Rectal: deferred MUSCULOSKELETAL: Bilaterally symmetrical, no muscle belly tenderness or mass DERMIS: Skin warm and dry, no ulcers or rashes, EXTREMITIES: No cyanosis, clubbing or edema, no gross deformities of the large or small joints of the upper or lower extremities. PICC line present in right upper extremity NEUROLOGICAL: Cranial nerves intact II-XII without notable deficit, No peripheral neurosensory or motor deficits noted. LYMPH: No anterior or posterior cervical, no supraclavicular, No axillary, no epitrochlear or femoral lymphadenopathy. Objective Last Vital Signs Temp 36.8 C 04/08/24 14:44 Pulse 83 04/08/24 14:44 Resp 18 04/08/24 14:44 BP 103/71 04/08/24 14:44 Pulse Ox 98 04/08/24 14:44 Laboratory Results - last 24 hr 04/08/24 04/08/24 06:10 09:10 WBC 32.96 H* 35.32 H* RBC 2.35 L 2.41 L Hgb 7.3 L D 7.4 L Hct 21.8 L 22.8 L MCV 93 95 MCH 31.1 30.7 MCHC 33.5 32.5 RDW 15.5 H 15.4 H Plt Count 418 H 469 H MPV 10.7 10.8 Immature Gran % 4.4 5.2 Neutrophils % 83.4 81.0 Lymphocytes % 6.8 8.6 Monocytes % 5.1 4.9 Eosinophils % 0.1 0.1 Basophils % 0.2 0.2 Nucleated RBC % 0.0 0.1 Absolute Neutrophils 27.49 H 28.61 H Absolute Lymphocytes 2.24 3.04 Absolute Monocytes 1.68 H 1.73 H Absolute Eosinophils 0.03 0.04 Absolute Basophils 0.07 0.07 RBC Morphology Normal Normal Sodium 133 L Potassium 6.1 H* D Chloride 107 Carbon Dioxide 22.6 Anion Gap 3.4 BUN 8 Creatinine 0.6 Est GFR (CKD-EPI 2020) 114.15 Glucose 161 H Calcium 8.4 L Total Bilirubin 0.34 AST 25 ALT 19 Alkaline Phosphatase 126 H Total Protein 4.8 L Albumin 1.2 L ABO/Rh O Positive Blood Type Recheck O Positive Cancelled Antibody Screen NEGATIVE Crossmatch See Detail Time Spent with Patient Time Spent with Patient: >50 minutes Time was spent: preparing to see the patient(eg.review tests), obtaining and/or reviewing separately otained hiistory, ordering medications,tests, procedures, referring, communicating with other health healthcare educator, indepentently interpreting results, counseling the patient and care coordination
[2024-04-08] MEDS: Nicotine 14 MG/24 HR PATCH TD (16:07)
[2024-04-08 16:47] LABS: HGB 9.4 g/dL (11.2-15.7)
[2024-04-08 16:57] LABS: Anion Gap 6.5 mmol/L (3-11); BUN 6 mg/dL (7-18); CO2 22.5 mmol/L (21.0-32.0); CREATININE 0.5 mg/dL (0.55-1.02); Calcium 8.2 mg/dL (8.5-10.1); Chloride 109 mmol/L (98-107); Estimated GFR 119.27 (mL/min/1.73m2); Glucose 116 mg/dL (74-106); Potassium 5.1 mmol/L (3.5-5.1); Sodium 138 mmol/L (136-145)
[2024-04-08] MEDS: ERTAPENEM 1 GM in Normal Saline 50 ML IVPB (19:39)
[2024-04-08] MEDS: traZODone 50 MG TAB PO (19:39)
[2024-04-09] VITALS (22 sets, daily range): BP systolic 95–124; BP diastolic 64–95; PULSE 77–125; RESP 13–31; TEMP 36.6; O2SAT 97–99
[2024-04-09] MEDS: Water,Injection,Sterile 10 ML VIAL (04:09)
[2024-04-09] MEDS: DEXTROSE 5%-LACTATED RINGERS 1,000 ML 125 ML IV ×3 (04:10→20:25)
[2024-04-09] MEDS: diazePAM 10 MG/2 ML SYR 5 MG IVP ×2 (04:10→16:16)
[2024-04-09] MEDS: HYDROmorphone 2 MG/ML SYR IVP ×6 (04:10→20:23)
[2024-04-09] MEDS: Loperamide 2 MG CAP PO ×3 (04:10→20:24)
[2024-04-09] MEDS: Normal Saline Flush 10 ML SYR IVP ×2 (06:22→20:23)
[2024-04-09 06:53] LABS: Abs Immature Grans 1.15 10^3/uL (0.0-0.06); Absolute Basophil Count 0.07 10^3/uL (0.0-0.2); Absolute Monocyte Count 1.28 10^3/uL (0.1-0.8); Basophils % 0.3 %; HCT 29.1 % (36.0-46.0); HGB 9.9 g/dL (11.2-15.7); Immature Grans % 5.1 %; Lymphocytes % 8.9 %; MCH 30.7 pg (27.0-33.0); MCV 90 fL (80-95); MPV 9.9 fL (8.0-11.0); Monocytes % 5.7 %; Platelet Count 343 10^3/uL (130-400); RBC 3.22 10^6/uL (3.93-5.22); RDW 15.8 % (11.7-14.6); RDW-SD 51.6 fL; WBC 22.37 10^3/uL (4.4-10.8)
[2024-04-09 07:10] LABS: Absolute Eosinophil Count 0.22 10^3/uL (0.0-0.7); Absolute Lymphocyte Count 1.99 10^3/uL (1.2-3.4); Absolute Neutrophil Count 17.67 10^3/uL (1.2-6.7)
[2024-04-09 07:22] LABS: ALT 20 U/L (14-59); AST 29 U/L (15-37); Albumin 1.2 g/dL (3.4-5.0); Alkaline Phosphatase 115 U/L (46-116); Anion Gap 5.8 mmol/L (3-11); BUN 4 mg/dL (7-18); CO2 25.2 mmol/L (21.0-32.0); CREATININE 0.5 mg/dL (0.55-1.02); Calcium 8.4 mg/dL (8.5-10.1); Chloride 108 mmol/L (98-107); Estimated GFR 119.27 (mL/min/1.73m2); Glucose 95 mg/dL (74-106); Potassium 4.3 mmol/L (3.5-5.1); Sodium 139 mmol/L (136-145); Total Protein 4.9 g/dL (6.4-8.2)
[2024-04-09] MEDS: Spironolactone 50 MG TAB 100 MG PO ×2 (08:08→20:23)
[2024-04-09] MEDS: Acyclovir 400 MG TAB PO ×3 (08:08→20:24)
[2024-04-09] MEDS: predniSONE 20 MG TAB PO (08:09)
[2024-04-09] MEDS: guaiFENesin 600 MG TABCR PO ×2 (08:10→20:24)
[2024-04-09] MEDS: Amphet Asp/Amphet/D-Amphet 10 MG TAB 20 MG PO (11:49)
[2024-04-09] MEDS: Cyclobenzaprine 10 MG TAB PO ×2 (12:44→20:24)
--- NOTE | 2024-04-09 15:15 | PGE_ITS ---
Date of Service Date of service: 04/09/24 Time of Service: 08:10 Assessment and Plan Assessment and plan (1) Pancreatic pseudocyst: Assessment and plan: Hemorragic component, but no extension of pseudocyst bleeding on FU CT yesterday. Pain continues much better controlled on more frequent IV dilaudid + diazepam. She agreed to placement of soft feeding tube. Nutrition consult requested. We would like to place this and put her on enteric feeds. but will try full liquid diet as she seems clinically better. AM blood work shows stable hemoglobin. Check daily. Repeat labs daily in am. Concern for increased bleeding into pseudocysts was of concern but not seen on repeat abd CT scan. Check Heme test stools Patient remains on PO Protonix. (2) Chronic pancreatitis: Assessment and plan: with pseudocyst formation and hemorrage into cysts as per above Qualifiers: Pancreatitis type: alcohol induced Qualified Code(s): K86.0 - Alcohol- induced chronic pancreatitis (3) Neutrophilic leukocytosis: Status: Acute Assessment and plan: secondary to pain and stress. Continues on IV ertapenem d#5 for possible pancreatic bacterial component (4) Splenic vein thrombosis: Status: Acute Assessment and plan: stable. (5) Pneumonia: Status: Acute Assessment and plan: Improved. No respiratory embarrassment at this time. Wean prednisone to off (6) Opioid use disorder in remission: Status: Acute Assessment and plan: suboxone stopped due to patient recieving long acting agent yesterday. Will magen patient allergic to brixodi (7) Adverse reaction to drug: Status: Acute Assessment and plan: adverse reaction to Brixodi would avoid this medication. Marked as listed allergy. concerning cause of pancreatitis in this patient. Allergy is entered. Subjective Subjective Interval history since last seen: Clinical course reviewed including notes, orders, labs, vitals, meds, imaging, and cultures. Care is discussed with primary nurse. Patient denies fevers, chills, or rash. Abdominal pain continues but is decreased. Patient able to sleep last evening, looks quite comfortable.. IV dilaudid frequency changed to q2h. Receives diltiazem twice daily which seems to help a great deal Unfortunately, without an order, once monthly injectable Brixodi (now listed as an allergy) was given to the patient today. Suboxone is discontinued. Recieved 2 units PRBC's yesterday WCC 22 (35) today, Hgb 9.9 (stable post transfusion), K 4.3 Continues on Ertapenem, d#5 Continues on PO Prednisone 20 mg today, weaning this agent to off Continues on Protonix PICC line placed 2d ago verified by x-ray She previously agreed to placement of soft feeding tube. Nutrition consult requested. We would like to place this and put her on enteric feeds. However her exam is markedlly improved today despite the troubles the last 36 hours. We will try her on a full liquid diet. She asks for pepperoni pizza, but that is not appropriate We have asked nursing to heme test stools A 14 point review of systems was performed and negative except as noted below and in the HPI. Exam Narrative Exam Narrative: Patient is alert and oriented x 3, pain is much better controlled. she appears significantly improved on first glance compared to the last few days. HEENT: Neck supple, MM pink and moist, conjunctiva non-injected, sclera non- icteric, Pupils equal and reactive to light symmetrically, CHEST: Bilaterally symmetrical with inspiration and expiration. No use of accessory muscles of respiration. No nasal flaring. RESP: Clear to auscultation bilaterally, no rales, rhonchi or wheeze, no pleural friction rub, no post-tussive crackles or apical rales. COR: RRR without murmur, normal S1, S2, no rub or gallop ABDOMEN: Soft, exam truly seems much improved today with decreased distention and her abdomen is less tender today than it has been. somewhat doughy in consistancy today. There is only mild secondary guarding. Bowel sounds present diffusely. G/U: deferred Rectal: deferred MUSCULOSKELETAL: Bilaterally symmetrical, no muscle belly tenderness or mass DERMIS: Skin warm and dry, no ulcers or rashes, EXTREMITIES: No cyanosis, clubbing or edema, no gross deformities of the large or small joints of the upper or lower extremities. PICC line present in right upper extremity, no site issues NEUROLOGICAL: Cranial nerves intact II-XII without notable deficit, No peripheral neurosensory or motor deficits noted. LYMPH: No anterior or posterior cervical, no supraclavicular, No axillary, no epitrochlear or femoral lymphadenopathy. Objective Last Vital Signs Temp 36.6 C 04/09/24 03:55 Pulse 94 H 04/09/24 06:00 Resp 20 04/09/24 06:00 BP 116/84 04/09/24 06:00 Pulse Ox 98 04/09/24 05:01 Laboratory Results - last 24 hr 04/08/24 04/08/24 04/09/24 09:10 16:40 06:30 WBC 22.37 H RBC 3.22 L Hgb 9.4 L D 9.9 L Hct 29.1 L MCV 90 D MCH 30.7 MCHC 34.0 RDW 15.8 H Plt Count 343 MPV 9.9 Immature Gran % 5.1 Neutrophils % 79.0 Lymphocytes % 8.9 Monocytes % 5.7 Eosinophils % 1.0 Basophils % 0.3 Nucleated RBC % 0.0 Absolute Neutrophils 17.67 H Absolute Lymphocytes 1.99 Absolute Monocytes 1.28 H Absolute Eosinophils 0.22 Absolute Basophils 0.07 Sodium 138 139 Potassium 5.1 D 4.3 Chloride 109 H 108 H Carbon Dioxide 22.5 25.2 Anion Gap 6.5 5.8 BUN 6 L 4 L Creatinine 0.5 L 0.5 L Est GFR (CKD-EPI 2020) 119.27 119.27 Glucose 116 H 95 Calcium 8.2 L 8.4 L Total Bilirubin 0.70 AST 29 ALT 20 Alkaline Phosphatase 115 Total Protein 4.9 L Albumin 1.2 L Crossmatch See Detail Time Spent with Patient Time Spent with Patient: >50 minutes Time was spent: preparing to see the patient(eg.review tests), obtaining and/or reviewing separately otained hiistory, ordering medications,tests, procedures, referring, communicating with other health women's health care nurse practitioner, indepentently interpreting results, counseling the patient and care coordination
[2024-04-09] MEDS: Pantoprazole 40 MG TABCR PO (18:26)
[2024-04-09] MEDS: Benzonatate 100 MG CAP PO (20:23)
[2024-04-09] MEDS: traZODone 50 MG TAB PO (20:24)
[2024-04-09] MEDS: Nicotine 14 MG/24 HR PATCH TD (20:24)
[2024-04-09] MEDS: Lactobacillus Acidophilus CAP 1 CAP PO (20:24)
[2024-04-09] MEDS: ERTAPENEM 1 GM in Normal Saline 50 ML IVPB (20:46)
[2024-04-10] VITALS (20 sets, daily range): BP systolic 99–121; BP diastolic 65–91; PULSE 82–118; RESP 14–20; TEMP 36–37.2; O2SAT 92–99
--- NOTE | 2024-04-10 | DI.US_ITS ---
Exam(s) US UPPER EXTREMITY VENOUS RT EXAM: US UPPER EXTREMITY VENOUS RT CLINICAL HISTORY: Rt PICC, swelling Rt>Lt TECHNIQUE: GRAYSCALE, COLOR, DOPPLER IMAGING OF THE VENOUS SYSTEM OF THE UPPER EXTREMITY-BILATERAL COMPARISON: No exams were available for comparison FINDINGS: This is a positive study for intraluminal thrombus in the distal cephalic veins/median cubital vein a t the just above the elbow level. Total length of intraluminal clot is approximately 3 cm. Basilic vein: Patent. Normal color-flow and normal compression and augmentation properties. Brachial vein(s):Patent. Normal color flow. Normal compression and augmentation properties. Axillary vein: Patent. Normal color flow. Normal compression and augmentation properties. Visualized subclavian vein: Patent. No obvious intraluminal thrombus. IMPRESSION: 1. Positive study for intraluminal thrombus at and above the elbow level within the median cubital v ein and distal cephalic vein. This may be related to prior intravenous site. DATA REPOSITORY:
[2024-04-10] MEDS: diazePAM 10 MG/2 ML SYR 5 MG IVP ×2 (04:06→17:20)
[2024-04-10] MEDS: Water,Injection,Sterile 10 ML VIAL (04:06)
[2024-04-10] MEDS: Loperamide 2 MG CAP PO ×3 (04:06→21:25)
[2024-04-10] MEDS: HYDROmorphone 2 MG/ML SYR IVP ×7 (04:07→23:58)
[2024-04-10] MEDS: DEXTROSE 5%-LACTATED RINGERS 1,000 ML 125 ML IV (04:07)
[2024-04-10] MEDS: Normal Saline Flush 10 ML SYR IVP ×3 (06:36→21:27)
[2024-04-10] MEDS: Spironolactone 50 MG TAB 100 MG PO ×2 (06:39→21:25)
[2024-04-10] MEDS: Acyclovir 400 MG TAB PO ×3 (06:39→21:25)
[2024-04-10] MEDS: Lactobacillus Acidophilus CAP 1 CAP PO ×2 (06:40→21:25)
[2024-04-10] MEDS: predniSONE 20 MG TAB PO (06:40)
[2024-04-10] MEDS: guaiFENesin 600 MG TABCR PO ×2 (06:40→21:25)
[2024-04-10 07:05] LABS: HCT 32.4 % (36.0-46.0); HGB 10.7 g/dL (11.2-15.7); MCH 30.6 pg (27.0-33.0); MCV 93 fL (80-95); MPV 10.4 fL (8.0-11.0); Platelet Count 438 10^3/uL (130-400); RDW 15.4 % (11.7-14.6); RDW-SD 50.8 fL; WBC 23.25 10^3/uL (4.4-10.8)
[2024-04-10 07:13] LABS: ALT 18 U/L (14-59); AST 22 U/L (15-37); Albumin 1.2 g/dL (3.4-5.0); Alkaline Phosphatase 116 U/L (46-116); Anion Gap 5.7 mmol/L (3-11); BUN 3 mg/dL (7-18); Bilirubin, Total 0.42 mg/dL (0.2-1.0); CO2 27.3 mmol/L (21.0-32.0); CREATININE 0.5 mg/dL (0.55-1.02); Calcium 8.8 mg/dL (8.5-10.1); Chloride 109 mmol/L (98-107); Estimated GFR 119.27 (mL/min/1.73m2); Glucose 111 mg/dL (74-106); Potassium 3.9 mmol/L (3.5-5.1); Sodium 142 mmol/L (136-145); Total Protein 5.1 g/dL (6.4-8.2)
[2024-04-10 08:20] LABS: Absolute Lymphocyte Count 1.16 10^3/uL (1.2-3.4); Absolute Monocyte Count 0.93 10^3/uL (0.1-0.8); Absolute Neutrophil Count 20.69 10^3/uL (1.2-6.7); Bands % 8 %; Diff Comment Manual Differential; Metamyelocytes % 2; RBC Morphology Normal
--- NOTE | 2024-04-10 09:17 | NS.NUTBLAN_ITS ---
Date of service: 04/10/24 Time of Service: 09:17 Nutritional Consult ASSESSMENT: Consult request received re: targets for enteral feeding Pt is 44yo female with acute on chronic pancreatitis (hemorrhagic pseudocyst), PNA. PMH significant for chronic hypokalemia. Dolly known to me from prior admissions and noted with poor to fair intake. Has had poor intake over this admission, which started 04/01 and has been on extended NPO recently from 04/06 to lunch yesterday, when full liquids allowed as patient has been reluctant to approve enteral feeding that has been recommended to her. However, she may have reconsidered this option as of yesterday as well. Dolly's weight has increased over her last admission to today - a 3.9kg gain over the last 16 days. However fluid gains are most certainly masking dry weight changes and further indicative of a malnourished state. Generalized anarsaca noted with 2+ pitting edema to lower R arm. Total protein and Albumin depressed at 5.1/1.2 respectively. High mag on 04/01 at 2.7. Estimated nutrition needs: 1703kcals ([id number]), 68-114g protein (1.2- 2g/kg) 1703mL fluid (1mL per required kcaL). NUTRITIONAL DIAGNOSIS: Inadequate intake related to acute illness and extended NPO status necessary for medical treatment, as evidenced by low total protein and albumin, reported 0-50% taken from her meal trays and declining most oral nutrition supplements offered. INTERVENTION: Osmolite 1.2 enteral formula at a goal rate of 59mL/hour run continuously for better toleration. May consider transitioning to bolus feeds if metal punch press operator feeds become indicated. Would recommend initiating at 25mL/hour and increase 5 mL per hour q 6 hours until goal rate is tolerated. ? considering the need for PERT with continuous enteral feeds? The above goal rate provides 1699kcals, 79g protein, and 1165mL of water. Ad siobhan flushes/IV fluids will be required to meet the remainder of Dolly's fluid needs. Recommend magnesium and phos labs routinely to better assess for any signs of refeeding syndrome. MONITORING AND EVALUATION: Will monitor po intake/food toleration, labs, weight, and nutrition status markers. If enteral feedings are inititiated, will monitor pt closely for toleration and any indication for adjustment to above recommendations. Time Spent in Nutritional Counseling and Treatment: 0
--- NOTE | 2024-04-10 09:48 | PDOC.CMPRO ---
Date of service: 04/10/24 Time of Service: 09:48 Care Management Progress Note Progress Note Text Progress Note Text: Dolly was sitting up in bed, receiving some medication from her nurse when CM met with her. She stated that she is looking forward to her diet being advanced, as she is on a liquid diet currently, and she does not enjoy the options. She also stated that she is looking forward to returning home. Per report, her diet will be advanced this evening. CM will continue to follow. Discharge Potential Discharge Needs: PCP F/U Appt Anticipated Barriers to Discharge: Medical Status Patient/Family Education Needs: Review discharge instructions, discuss Ask Me Three Transportation: Private vehicle Plan: Anticipate Dolly will be discharged home with no new services when medically stable. She will follow up with her community providers and plan of care and transport via private vehicle with friend/family. CM will follow and continue to support discharge needs. SDOH(Care Management) Screening Will the Patient Participate in the Screening?: Yes Do you worry about having a steady place to live?: no Problems where you live: no known problems In the past 12 months, have you had to go without electric, gas, oil or water in your home?: no Have you or anyone in your house had to go without enough food to eat?: no Has lack of transportation kept you from medical appointments or from doing things needed for daily living?: no Has anyone in your support network made you feel unsafe for any reason?: yes Health Related Social Needs Health related social needs: problem related to primary support group(Z63.9)
[2024-04-10] MEDS: Amphet Asp/Amphet/D-Amphet 10 MG TAB 20 MG PO (11:46)
--- NOTE | 2024-04-10 13:03 | W.PM.PROGNOT ---
Date of Service Date of service: 04/10/24 Time of Service: 13:03 Assessment and Plan Assessment and plan (1) Pancreatic pseudocyst: Assessment and plan: -Hemorragic component, but no extension of pseudocyst bleeding on FU CT 04/08. -Pain continues much better controlled on more frequent IV dilaudid + diazepam. -had agreed to placement of soft feeding tube, but has since been tolerating full liquid diet and is being advanced to fat restricted regular diet PM 10 -AM blood work shows stable hemoglobin. Check daily. -Repeat labs daily in am. -Patient remains on PO Protonix. (2) Chronic pancreatitis: Assessment and plan: -with pseudocyst formation and hemorrage into cysts -as per above Qualifiers: Pancreatitis type: alcohol induced Qualified Code(s): K86.0 - Alcohol-induced chronic pancreatitis (3) Deep vein thrombosis, upper right extremity: Status: Acute Assessment and plan: -patient has diffuse anasarca, but swelling worse in R>L upper extremity -RUE US showed DVT in distal cephalic veins/median cubital vein at just above the elbow -given recent bleeding of pancreatic cyst (with CT showing cyst as being stable on 04/08), patient will be started on heprin drip for 48hrs prior to transition to PO anticoagulation, as heparin drip will allow for immediate discontinuation of anticoagulation in the event patient developed worsening abdominal pain/recurrence of bleeding into pancreatic pseudocyst (4) Neutrophilic leukocytosis: Status: Acute Assessment and plan: -secondary to pain and stress. -Continues on IV ertapenem d#6 for possible pancreatic bacterial component (5) Splenic vein thrombosis: Status: Acute Assessment and plan: -stable. (6) Pneumonia: Status: Acute Assessment and plan: -Improved. -No respiratory component (7) Opioid use disorder in remission: Status: Acute Assessment and plan: -suboxone stopped due to patient recieving long acting agent 04/08 -Will maegn patient allergic to brixodi (8) Adverse reaction to drug: Status: Acute Assessment and plan: -adverse reaction to Brixodi -would avoid this medication. -Marked as listed allergy. -concerning cause of pancreatitis in this patient. Allergy is entered. Subjective Subjective Interval history since last seen: Patient states that she is feeling better today. She understands that she has a clot in her right arm and that she will be started on a heparin drip for 48hrs. Otherwise she states that she is looking forward to advancing her diet and has no other complaints or concerns at this time. Exam Narrative Exam Narrative: fatigues appearing female laying in bed in no acute distress, AOx4, heart RRR, lungs CTAB, abdomen soft, mild difuse tenderness without rebound or guarding, diffuse anasarca in bilateral lower and upper extremities with swelling R> L upper extremity Objective Last Vital Signs Temp 99.0 F 04/10/24 04:05 Pulse 100 H 04/10/24 08:01 Resp 14 04/10/24 08:01 BP 105/75 04/10/24 08:01 Pulse Ox 96 04/10/24 08:01 Laboratory Results - last 24 hr 04/10/24 05:50 WBC 23.25 H RBC 3.50 L Hgb 10.7 L Hct 32.4 L MCV 93 MCH 30.6 MCHC 33.0 RDW 15.4 H Plt Count 438 H MPV 10.4 Immature Gran % 0.0 Neutrophils % 81.0 Band Neutrophils % 8 Lymphocytes % 5.0 Monocytes % 4.0 Eosinophils % 0.0 Basophils % 0.0 Metamyelocytes % 2 Nucleated RBC % 0.0 Absolute Neutrophils 20.69 H Absolute Lymphocytes 1.16 L Absolute Monocytes 0.93 H Absolute Eosinophils 0.00 Absolute Basophils 0.00 RBC Morphology Normal Sodium 142 Potassium 3.9 Chloride 109 H Carbon Dioxide 27.3 Anion Gap 5.7 BUN 3 L Creatinine 0.5 L Est GFR (CKD-EPI 2020) 119.27 Glucose 111 H Calcium 8.8 Total Bilirubin 0.42 AST 22 ALT 18 Alkaline Phosphatase 116 Total Protein 5.1 L Albumin 1.2 L Time Spent with Patient Time Spent with Patient: >50 minutes Time was spent: preparing to see the patient(eg.review tests), obtaining and/or reviewing separately otained hiistory, ordering medications,tests, procedures, referring, communicating with other health transitions rn care coordinator, indepentently interpreting results, counseling the patient and care coordination
[2024-04-10] MEDS: Pantoprazole 40 MG TABCR PO (17:20)
[2024-04-10 18:22] LABS: PTT Activated 29.3 sec (23.6-32.8)
[2024-04-10] MEDS: Heparin in 0.45% NaCl 25,000 UNIT/250 ML BAG 10 UNIT IVINF (18:52)
[2024-04-10] MEDS: traZODone 50 MG TAB PO (21:25)
[2024-04-10] MEDS: Cyclobenzaprine 10 MG TAB PO (21:25)
[2024-04-10] MEDS: Acetaminophen 325 MG TAB PO (21:25)
[2024-04-10] MEDS: Nicotine 14 MG/24 HR PATCH TD (21:26)
[2024-04-10] MEDS: ERTAPENEM 1 GM in Normal Saline 50 ML IVPB (21:33)
[2024-04-11] VITALS (17 sets, daily range): BP systolic 100–118; BP diastolic 66–89; PULSE 87–106; RESP 12–19; TEMP 36.3–37.4; O2SAT 95–98
[2024-04-11 01:46] LABS: PTT Activated 106.9 sec (23.6-32.8)
[2024-04-11] MEDS: HYDROmorphone 2 MG/ML SYR IVP ×2 (02:33→04:47)
[2024-04-11] MEDS: Normal Saline Flush 10 ML SYR IVP ×3 (02:33→21:28)
[2024-04-11] MEDS: diazePAM 10 MG/2 ML SYR 5 MG IVP (04:48)
[2024-04-11] MEDS: Loperamide 2 MG CAP PO ×3 (04:49→21:28)
[2024-04-11] MEDS: Water,Injection,Sterile 10 ML VIAL (04:49)
[2024-04-11 06:10] LABS: HCT 28.8 % (36.0-46.0); HGB 9.6 g/dL (11.2-15.7); MCH 30.9 pg (27.0-33.0); MCHC 33.3 % (32.0-36.0); MCV 93 fL (80-95); MPV 10.1 fL (8.0-11.0); Platelet Count 392 10^3/uL (130-400); RBC 3.11 10^6/uL (3.93-5.22); RDW 15.4 % (11.7-14.6)
[2024-04-11 06:23] LABS: BUN 3 mg/dL (7-18); CREATININE 0.5 mg/dL (0.55-1.02); Calcium 8.5 mg/dL (8.5-10.1); Chloride 108 mmol/L (98-107); Estimated GFR 119.27 (mL/min/1.73m2); Glucose 116 mg/dL (74-106); Potassium 3.3 mmol/L (3.5-5.1); Sodium 142 mmol/L (136-145)
--- NOTE | 2024-04-11 08:32 | PGE_ITS ---
Date of Service Date of service: 04/11/24 Time of Service: 08:32 Assessment and Plan Assessment and plan (1) Pancreatic pseudocyst: Assessment and plan: -Hemorragic component, but no extension of pseudocyst bleeding on FU CT 04/08. -Pain continues much better controlled on more frequent IV dilaudid + diazepam. -had agreed to placement of soft feeding tube, but has since been tolerating full liquid diet and is being advanced to fat restricted regular diet PM 04/10 and has been tolering well -AM blood work shows Hb decreased from 10.7 to 9.6, but all lines are decreased so may be dilutional -Repeat labs daily in am. -Patient remains on PO Protonix. (2) Chronic pancreatitis: Assessment and plan: -with pseudocyst formation and hemorrage into cysts -as per above Qualifiers: Pancreatitis type: alcohol induced Qualified Code(s): K86.0 - Alcohol- induced chronic pancreatitis (3) Deep vein thrombosis, upper right extremity: Status: Acute Assessment and plan: -patient has diffuse anasarca, but swelling worse in R>L upper extremity -RUE US showed DVT in distal cephalic veins/median cubital vein at just above the elbow -given recent bleeding of pancreatic cyst (with CT showing cyst as being stable on 04/08), patient will be started on heprin drip for 48hrs prior to transition to PO anticoagulation, as heparin drip will allow for immediate discontinuation of anticoagulation in the event patient developed worsening abdominal pain/recurrence of bleeding into pancreatic pseudocyst -will transition to PO eliquis PM 04/12 if Hb remains stable (4) Neutrophilic leukocytosis: Status: Acute Assessment and plan: -secondary to pain and stress. -Continues on IV ertapenem d#7 for possible pancreatic bacterial component (5) Splenic vein thrombosis: Status: Acute Assessment and plan: -stable. (6) Pneumonia: Status: Acute Assessment and plan: -Improved. -No respiratory component (7) Opioid use disorder in remission: Status: Acute Assessment and plan: -suboxone stopped due to patient recieving long acting agent 04/08 -Will magen patient allergic to brixodi (8) Adverse reaction to drug: Status: Acute Assessment and plan: -adverse reaction to Brixodi -would avoid this medication. -Marked as listed allergy. -concerning cause of pancreatitis in this patient. Allergy is entered. Subjective Subjective Interval history since last seen: Patient states that she is doing well today and has been tolerating her regular diet. She is happy to hear that she is on track to be discharged tomorrow 04/12/2024 as long as her Hb remains stable and she continues to have improvement in her abdominal pain. She has no complaints or concerns at this time. Exam Narrative Exam Narrative: fatigues appearing female laying in bed in no acute distress, AOx4, heart RRR, lungs CTAB, abdomen soft, mild difuse tenderness without rebound or guarding, diffuse anasarca in bilateral lower and upper extremities with swelling R> L upper extremity Objective Last Vital Signs Temp 99.3 F 04/11/24 03:45 Pulse 87 04/11/24 00:01 Resp 12 04/11/24 06:00 BP 104/66 04/11/24 00:01 Pulse Ox 95 04/11/24 06:00 Laboratory Results - last 24 hr 04/10/24 04/11/24 04/11/24 18:00 01:00 05:20 WBC 20.00 H RBC 3.11 L Hgb 9.6 L Hct 28.8 L MCV 93 MCH 30.9 MCHC 33.3 RDW 15.4 H Plt Count 392 MPV 10.1 APTT 29.3 106.9 H* Sodium 142 Potassium 3.3 L Chloride 108 H Carbon Dioxide 29.0 Anion Gap 5.0 BUN 3 L Creatinine 0.5 L Est GFR (CKD-EPI 2020) 119.27 Glucose 116 H Calcium 8.5 Time Spent with Patient Time Spent with Patient: >50 minutes Time was spent: preparing to see the patient(eg.review tests), obtaining and/or reviewing separately otained hiistory, ordering medications,tests, procedures, referring, communicating with other health neonatal intensive care nurse, indepentently interpreting results, counseling the patient and care coordination
[2024-04-11] MEDS: Acyclovir 400 MG TAB PO ×3 (08:39→21:27)
[2024-04-11] MEDS: Spironolactone 50 MG TAB 100 MG PO ×2 (08:39→21:27)
[2024-04-11] MEDS: guaiFENesin 600 MG TABCR PO ×2 (08:39→21:28)
[2024-04-11] MEDS: predniSONE 10 MG TAB PO (08:40)
[2024-04-11] MEDS: Lactobacillus Acidophilus CAP 1 CAP PO ×3 (08:55→21:27)
--- NOTE | 2024-04-11 09:14 | PDOC.CMPRO ---
Date of service: 04/11/24 Time of Service: 09:14 Care Management Progress Note Progress Note Text Progress Note Text: Dolly was lying in bed, watching TV when CM met with her. Her diet was advanced and she denies any new concerns. She is planning on discharging home tomorrow if medically ready. Discharge Potential Discharge Needs: PCP F/U Appt Anticipated Barriers to Discharge: Medical Status Patient/Family Education Needs: Review discharge instructions, discuss Ask Me Three Transportation: Private vehicle Plan: Anticipate Dolly will be discharged home with no new services when medically stable. She will follow up with her community providers and plan of care and transport via private vehicle with friend/family. CM will follow and continue to support discharge needs. SDOH(Care Management) Screening Will the Patient Participate in the Screening?: Yes Do you worry about having a steady place to live?: no Problems where you live: no known problems In the past 12 months, have you had to go without electric, gas, oil or water in your home?: no Have you or anyone in your house had to go without enough food to eat?: no Has lack of transportation kept you from medical appointments or from doing things needed for daily living?: no Has anyone in your support network made you feel unsafe for any reason?: yes Health Related Social Needs Health related social needs: problem related to primary support group(Z63.9)
[2024-04-11] MEDS: HYDROmorphone 2 MG TAB PO ×3 (12:35→21:27)
[2024-04-11] MEDS: Amphet Asp/Amphet/D-Amphet 10 MG TAB 20 MG PO (12:36)
[2024-04-11 14:19] LABS: PTT Activated 49.4 sec (23.6-32.8)
[2024-04-11] MEDS: diazePAM 2 MG TAB PO (16:29)
[2024-04-11] MEDS: Pantoprazole 40 MG TABCR PO (18:33)
--- NOTE | 2024-04-11 18:53 | NUR.NOTE ---
1638-Pt transfered from ICU room 220 to med/surg room 218. Pt ambulated from 220 to room 218 with difficultly. Handoff report was received from Piedad Simmons RN in the presense of the patient, all questions answered. See m/s shift assesment for complete assesment details upon arrival.
[2024-04-11] MEDS: Heparin in 0.45% NaCl 25,000 UNIT/250 ML BAG 9.5 UNIT IVINF (19:23)
[2024-04-11] MEDS: ERTAPENEM 1 GM in Normal Saline 50 ML IVPB (21:26)
[2024-04-11] MEDS: Cyclobenzaprine 10 MG TAB PO (21:27)
[2024-04-11] MEDS: traZODone 50 MG TAB PO (21:28)
[2024-04-11 22:02] LABS: PTT Activated 53.7 sec (23.6-32.8)
[2024-04-12 03:48] LABS: HCT 28.4 % (36.0-46.0); HGB 9.4 g/dL (11.2-15.7); MCHC 33.1 % (32.0-36.0); MCV 94 fL (80-95); MPV 9.8 fL (8.0-11.0); Platelet Count 409 10^3/uL (130-400); RBC 3.03 10^6/uL (3.93-5.22); RDW 15.7 % (11.7-14.6); RDW-SD 51.8 fL; WBC 17.27 10^3/uL (4.4-10.8)
[2024-04-12 03:57] LABS: Anion Gap 2.6 mmol/L (3-11); BUN 2 mg/dL (7-18); CO2 30.4 mmol/L (21.0-32.0); CREATININE 0.7 mg/dL (0.55-1.02); Calcium 8.4 mg/dL (8.5-10.1); Chloride 109 mmol/L (98-107); Estimated GFR 109.98 (mL/min/1.73m2); Glucose 85 mg/dL (74-106); Potassium 3.5 mmol/L (3.5-5.1); Sodium 142 mmol/L (136-145)
[2024-04-12 04:00] LABS: PTT Activated 74.1 sec (23.6-32.8)
[2024-04-12] MEDS: Loperamide 2 MG CAP PO ×2 (05:00→12:09)
[2024-04-12] MEDS: Spironolactone 50 MG TAB 100 MG PO (07:34)
[2024-04-12] MEDS: predniSONE 10 MG TAB PO (07:34)
[2024-04-12] MEDS: HYDROmorphone 2 MG TAB PO ×4 (07:34→12:51)
[2024-04-12] MEDS: Lactobacillus Acidophilus CAP 1 CAP PO (07:35)
[2024-04-12] MEDS: Acyclovir 400 MG TAB PO (07:35)
[2024-04-12] MEDS: guaiFENesin 600 MG TABCR PO (07:35)
[2024-04-12 07:41] VITALS: BP 108/80; PULSE 103; RESP 14; TEMP 36.7; O2SAT 96
--- NOTE | 2024-04-12 08:40 | PDOC.CMDIS ---
Date of service: 04/12/24 Time of Service: 08:40 Care Management Discharge SDOH Health Related Social Needs: Health related social needs personal safety Health related social needs details Resume BAART suboxone DAVID treatment Health related social needs: problem related to primary support group(Z63.9)
[2024-04-12] MEDS: Apixaban 5 MG TAB 10 MG PO (09:05)
[2024-04-12] MEDS: Normal Saline Flush 10 ML SYR IVP (09:05)
--- NOTE | 2024-04-12 09:43 | W.PM.DS.N ---
Date of service: 04/12/24 Time of Service: 11:06 DS: Diagnosis Discharge Diagnosis (1) Pancreatic pseudocyst: Asessment and Plan: -Hemorragic component, but no extension of pseudocyst bleeding on FU CT 04/08. -Pain continues much better controlled on more frequent IV dilaudid + diazepam. -has been tolerating regular diet for ~48hrs prior to discharge -Hb stable in mid 9's -Patient remains on PO Protonix. (2) Chronic pancreatitis: Asessment and Plan: -with pseudocyst formation and hemorrage into cysts -as per above (3) Deep vein thrombosis, upper right extremity: Status: Acute Asessment and Plan: -patient has diffuse anasarca, but swelling worse in R>L upper extremity -RUE US showed DVT in distal cephalic veins/median cubital vein at just above the elbow -given recent bleeding of pancreatic cyst (with CT showing cyst as being stable on 04/08), was on heparin drip for ~36hrs prior to transition to PO anticoagulation, as heparin drip will allow for immediate discontinuation of anticoagulation in the event patient developed worsening abdominal pain/recurrence of bleeding into pancreatic pseudocyst -transitioned to PO eliquis AM 04/12 if Hb remains stable (4) Neutrophilic leukocytosis: Status: Acute Asessment and Plan: -secondary to pain and stress. -had been on IV ertapenem for 8 days for possible pancreatic bacterial component (5) Splenic vein thrombosis: Status: Acute (6) Pneumonia: Status: Acute (7) Opioid use disorder in remission: Status: Acute (8) Adverse reaction to drug: Status: Acute Discharge Plan Disposition Patient Disposition: Home Condition: Good Discharge Details Reason For Visit: sepsis Admit Date/Time: 03/31/24 18:30 Admit Provider: Zaid Rios Attending Provider: Zaid Rios Primary Care Provider: Georgina Leyva Home Meds and New Rx's Prescriptions: New Eliquis 5 mg Tablet 10 mg PO BID Qty: 208 0RF Rx Instructions: take 2 tabs BID, then 1 tab BID starting AM 10/16 cyclobenzaprine 10 mg Tablet 10 mg PO BID PRN PRNQty: 12 0RF hydromorphone 2 mg Tablet 2 mg PO BID PRN PRNQty: 10 0RF diazepam 2 mg Tablet 1 mg PO BID PRN PRNQty: 7 0RF Continued trazodone 50 mg tablet 50 mg PO HS Patient Comments: take 1 tablet by mouth at bedtime spironolactone 50 mg tablet 100 mg PO BID diphenoxylate-atropine [Lomotil] 2.5-0.025 mg tablet 1 tab PO BID PRN (Reason: diarrhea) Qty: 14 0RF dextroamphetamine-amphetamine 30 mg capsule,extended release 24hr 30 mg PO DAILY Patient Comments: TAKE ONE CAPSULE BY MOUTH EVERY MORNING potassium chloride [Klor-Con M20] 20 mEq Tablet,Er Particles/Crystals 40 meq PO AC & HS Qty: 80 0RF Rx Instructions: Take with food cholestyramine-aspartame [Prevalite] 4 gram Powder In Packet 1 packet PO 0700,1100,1600,2000 Qty: 60 0RF loperamide 2 mg Capsule 2 mg PO Q8H PRNQty: 30 0RF pantoprazole [Protonix] 40 mg tablet,delayed release (DR/EC) 40 mg PO DAILY Qty: 30 0RF prochlorperazine maleate [Compazine] 5 mg tablet 5 mg PO TID PRNQty: 30 0RF dextroamphetamine-amphetamine 20 mg tablet 20 mg PO DAILY Patient Comments: TAKE ONE TABLET BY MOUTH EVERY DAY IN THE AFTERNOON albuterol sulfate 90 mcg/actuation HFA aerosol inhaler 1 inh INHALATION Q4H PRN Discontinued azithromycin 250 mg tablet 250 mg PO DAILY Patient Comments: TAKE 2 TABLETS BY MOUTH ONE DOSE ON DAY 1, THEN 1 TABLET DAILY ON DAYS 2-5 Rx Instructions: for two more days done 04/02/24 Brixadi 64 mg/0.18 mL solution, extended rel syringe 64 mg SUBCUT .monthly Discharge Instructions Activity:: Activity as Tolerated Equipment/Supplies:: No Equipment Needed Diet:: As Tolerated DS: Summary Time Spent with Patient providing and/or coordinating discharge services: Greater than 30 minutes Status at Discharge Functional status at discharge: independent ambulation Overall status at discharge: patient is back to baseline Mental Status: mental status grossly normal Speech and Movement: speech and movement normal Mood: congruent mood Affect: normal affect Quality:SDOH Health Related Social Needs: Health related social needs personal safety Health related social needs details Resume BAART suboxone DAVID treatment Exam Narrative Exam Narrative: fatigues appearing female laying in bed in no acute distress, AOx4, heart RRR, lungs CTAB, abdomen soft, mild difuse tenderness without rebound or guarding, diffuse anasarca in bilateral lower and upper extremities with swelling R> L upper extremity Psych Mental Status: mental status grossly normal Speech and Movement: speech and movement normal Mood: congruent mood Affect: normal affect DS: Data Vitals/I&O Vitals and I&O: Vital Signs Temperature 98.0 F 04/12/24 07:41 Temperature Source Tympanic 04/12/24 07:41 Pulse 103 H 04/12/24 07:41 Pulse 94 H 04/11/24 15:20 Respiratory Rate 14 04/12/24 07:41 Respiratory Effort Normal 04/08/24 14:17 Respiratory Depth Normal 04/08/24 14:17 Respiratory Pattern Normal 04/08/24 14:17 Blood Pressure 108/80 04/12/24 07:41 Blood Pressure Mean 86 04/11/24 15:20 Blood Pressure Position Supine 04/08/24 14:17 Pulse Oximetry 96 04/12/24 07:41 Oxygen Delivery Method Room Air 04/12/24 07:41 Oxygen Flow Rate 0 04/12/24 07:41 Pain Level 6 04/12/24 08:28 Comment Temp only 04/10/24 12:45 Intake & Output 04/11/24 04/12/24 04/12/24 17:59 05:59 17:59 Intake Total 145.058 / 145.058 97.025 / 242.083 134.583 / 134.583 Output Total 550 / 550 Balance -404.942 / -404.942 97.025 / -307.917 134.583 / 134.583 Weight 128 lb 9.53 oz 131 lb 8 oz Intake: IV 145.058 / 145.058 97.025 / 242.083 134.583 / 134.583 Output: Urine 550 / 550 Other: Urine Color Yellow Yellow Yellow Urine Appearance Clear Clear Clear Urine Odor None Comment mix w/ stool, unmeasured Stool Size Moderate Small Stool Characteristics Soft Soft Formed Voiding Methods Bedside Commode Toilet Self-Catheterization Data Completed and Pending Labs on day of discharge: Labs from last 24 hours 04/12/24 04/11/24 04/11/24 03:10 21:05 13:56 WBC 17.27 H RBC 3.03 L Hgb 9.4 L Hct 28.4 L MCV 94 MCH 31.0 MCHC 33.1 RDW 15.7 H Plt Count 409 H MPV 9.8 APTT 74.1 H 53.7 H 49.4 H Sodium 142 Potassium 3.5 Chloride 109 H Carbon Dioxide 30.4 Anion Gap 2.6 L BUN 2 L Creatinine 0.7 Est GFR (CKD-EPI 2020) 109.98 Glucose 85 Calcium 8.4 L PFSH All Active Problems (Updated 04/12/24 @ 09:31 by Brian Amaya MD) Deep vein thrombosis, upper right extremity (Acute) Adverse reaction to drug (Acute) Neutrophilic leukocytosis (Acute) Anemia (Chronic) Splenic vein thrombosis (Acute) Pneumonia (Acute) Sepsis (Acute) ADHD (Acute) Opioid use disorder in remission (Acute) Continuous tobacco abuse (Acute) Chronic hypokalemia (Acute) Medical History (Updated 04/12/24 @ 09:31 by Brian Amaya MD) Chronic pancreatitis Insomnia Hypocalcemia Bilateral edema of lower extremity Hypoalbuminemia Hypokalemia Normocytic normochromic anemia COPD (chronic obstructive pulmonary disease) Alcohol abuse Diarrhea Dysphagia Bowel habit changes Pancreatic pseudocyst Pancreatic mass Anasarca Ganglion cyst of dorsum of left wrist Colitis Opioid dependence on agonist therapy Surgical History S/P cholecystectomy and removal of two pancreatic pseudocysts Social History Smoking/Tobacco Use Status: Current every day Tobacco Type: cigarettes Smoking packs per day: 0.5 Smoking cigarettes per day: 10.0 Years smoked: 27 Smoking pack-years: 13.50 Quit status: considering quitting Counseling given: provider counseling and support medications Smoking risk assessment performed?: Yes Alcohol Intake: current Alcohol Intake frequency: a few times a month Alcohol type: beer Counseling provided: provider counseling Drug use: Occasionally Substance use type: marijuana Housing: apartment Do you feel safe at home: Yes Do you feel safe in your relationship?: Yes Time Spent with Patient Time Spent with Patient: <45 minutes Time was spent: preparing to see the patient(eg.review tests), obtaining and/or reviewing separately otained hiistory, ordering medications,tests, procedures, referring, communicating with other health patient care nursing assistant, indepentently interpreting results, counseling the patient and care coordination
[2024-04-12] MEDS: Prochlorperazine 5 MG TAB PO (10:19)
[2024-04-12] MEDS: diazePAM 2 MG TAB PO (10:20)
[2024-04-12] MEDS: Benzonatate 100 MG CAP PO (11:01)
[2024-04-12] MEDS: Amphet Asp/Amphet/D-Amphet 10 MG TAB 20 MG PO (12:09)
[2024-04-12] MEDS: Acetaminophen 325 MG TAB PO (12:51)
== END 2024-04-12 13:52 | disposition home or self-care (01) | DRG 871 ==
LOC: ER 22:33 → ICU 22:52 → MS 04-03 11:43 → ICU 04-08 13:41 → MS 04-11 16:06
PROVIDERS: Family Medicine; General Practice; Internal Medicine; Student in an Organized Health Care Education/Training Program; Admitting Provider Family Medicine; Emergency Provider Emergency Medicine; PCP Nurse Practitioner Family; Visit Provider Family Medicine
DX: A41.9 Sepsis, unspecified organism (principal); J18.9 Pneumonia, unspecified organism; K85.30 Drug induced acute pancreatitis without necrosis or infection; K86.3 Pseudocyst of pancreas; K86.0 Alcohol-induced chronic pancreatitis; I82.621 Acute embolism and thrombosis of deep veins of right upper extremity; J44.0 Chronic obstructive pulmonary disease with (acute) lower respiratory infection; F11.21 Opioid dependence, in remission; F90.2 Attention-deficit hyperactivity disorder, combined type; E87.6 Hypokalemia; K59.1 Functional diarrhea; D64.9 Anemia, unspecified; D72.828 Other elevated white blood cell count; Z79.899 Other long term (current) drug therapy; F17.210 Nicotine dependence, cigarettes, uncomplicated; F10.10 Alcohol abuse, uncomplicated; R60.0 Localized edema; G47.00 Insomnia, unspecified; E83.51 Hypocalcemia; D73.5 Infarction of spleen; A60.09 Herpesviral infection of other urogenital tract; T50.995A Adverse effect of other drugs, medicaments and biological substances, initial encounter; R63.0 Anorexia; Z68.24 Body mass index [BMI] 24.0-24.9, adult
CPT/HCPCS: 36573; 00123; 36410; 36415; 36430; 71045; 80048; 80053; 83690; 85027; 85652; 86850; 86900; 86901; 86920; 87040; 87449; 87637; 94640; 96365; 96367; 96368; 99285; J1650; 71046; 71260; 74176; 74177; 80202; 81003; 82150; 82272; 83540; 83550; 83605; 83735; 85018; 85025; 85730; 86140; 93971; 94667; 94668; 94760; 99222; 99232; 99233; 99239; J0692; J1171; J1335; J1644; J1885; J2185; J3360; J3370; J3372; J3475; J3480; J3490; J7512; J7613; J7620; P9016

== ENCOUNTER → 2024-04-17 13:35 | Outpatient (BNVA) | payer MEDICARE, SELFPAY | PROVIDERS: PCP Nurse Practitioner Family; Referring Provider Nurse Practitioner Family; Visit Provider Surgery | DX: K86.0 Alcohol-induced chronic pancreatitis; J18.9 Pneumonia, unspecified organism; K21.9 Gastro-esophageal reflux disease without esophagitis; K86.3 Pseudocyst of pancreas; K59.1 Functional diarrhea; Z72.0 Tobacco use; I82.890 Acute embolism and thrombosis of other specified veins; F11.20 Opioid dependence, uncomplicated; E87.6 Hypokalemia; F10.10 Alcohol abuse, uncomplicated; D64.9 Anemia, unspecified | CPT/HCPCS: 99214 ==

== ENCOUNTER 2024-04-26 17:01 | Outpatient (CLI) | payer MEDICARE, SELFPAY ==
--- NOTE | 2024-04-26 | DI.RAD_ITS ---
Exam(s) XR FOREARM LT EXAM: XR FOREARM LT CLINICAL HISTORY: Pain from elbow to wrist. TECHNIQUE: 2D digital imaging was performed of the left forearm. Two views were obtained. AP and l ateral views were obtained. COMPARISON: No exams were available for comparison FINDINGS: BONES: No acute fracture is present. No bony destructive lesion is seen. Visualized portion of elbow and wrist joints are unremarkable. SOFT TISSUE: Normal. IMPRESSION: Unremarkable radiographs of the left forearm. DATA REPOSITORY: RADIATION DOSE DELIVERED:
== END 2024-04-26 17:21 ==
LOC: DI 17:02
PROVIDERS: PCP Nurse Practitioner Family; Visit Provider Nurse Practitioner Family
DX: M79.632 Pain in left forearm (principal)
CPT/HCPCS: 73090

== ENCOUNTER 2024-05-15 16:09 | Outpatient (CLI) | payer MEDICARE, SELFPAY ==
[2024-05-15 16:45] LABS: ALT 126 U/L (14-59); AST 128 U/L (15-37); Albumin 2.1 g/dL (3.4-5.0); Alkaline Phosphatase 394 U/L (46-116); Anion Gap 10.6 mmol/L (3-11); BUN 7 mg/dL (7-18); Bilirubin, Total 0.74 mg/dL (0.2-1.0); CO2 24.4 mmol/L (21.0-32.0); CREATININE 0.7 mg/dL (0.55-1.02); Calcium 8.7 mg/dL (8.5-10.1); Chloride 108 mmol/L (98-107); Estimated GFR 109.98 (mL/min/1.73m2); Glucose 175 mg/dL (74-106); Magnesium 1.8 mg/dL (1.8-2.4); Potassium 3.6 mmol/L (3.5-5.1); Sodium 143 mmol/L (136-145); Total Protein 6.3 g/dL (6.4-8.2)
[2024-05-15 17:10] LABS: *AMPHETAMINES SCREEN URINE Positive (Negative); *BARBITURATES SCREEN URINE Negative (Negative); *BENZODIAZEPINES SCREEN URINE Negative (Negative); Cannabinoids THC Positive (Negative); Cocaine Screen,Urine Negative (Negative); METHADONE URINE SCREEN Negative (Negative); OPIATES URINE SCREEN Negative (Negative)
[2024-05-15 17:11] LABS: Tricyclic Antidepressants Negative (Negative)
== END 2024-05-15 16:10 | disposition home or self-care (01) ==
LOC: LBO 16:11
PROVIDERS: PCP Nurse Practitioner Family; Visit Provider Nurse Practitioner Family
DX: Z79.899 Other long term (current) drug therapy (principal); E83.42 Hypomagnesemia; E87.6 Hypokalemia; E11.21 Type 2 diabetes mellitus with diabetic nephropathy
CPT/HCPCS: 36415; 80053; 80307; 83735

== ENCOUNTER 2024-06-07 01:46 | Outpatient (CLI) | payer MEDICARE, SELFPAY ==
--- NOTE | 2024-06-07 07:27 | DI.RAD_ITS ---
Exam(s) XR CHEST 2V PA LATERAL EXAM: XR CHEST 2V PA LATERAL CLINICAL HISTORY: F/U pneumonia TECHNIQUE: 2D digital imaging was performed. Two views. COMPARISON: CR XR PORTABLE CHEST AP POST LINE from 04/07/2024 FINDINGS: HEART: Normal size. Aorta: Not dilated. PULMONARY VASCULATURE: Normal. MEDIASTINUM: Unremarkable. LUNGS: Hyperinflated but clear. Previously noted infiltrates have resolved. PLEURAL SPACE: No pleural effusion or pneumothorax. BONE:Unremarkable for age. SOFT TISSUES: Unremarkable. IMPRESSION: No acute abnormality. DATA REPOSITORY: RADIATION DOSE DELIVERED:
== END 2024-06-07 02:06 ==
LOC: DI 01:47
PROVIDERS: PCP Nurse Practitioner Family; Visit Provider Surgery
DX: J18.9 Pneumonia, unspecified organism (principal); Z72.0 Tobacco use; F11.91 Opioid use, unspecified, in remission; I82.890 Acute embolism and thrombosis of other specified veins; K21.9 Gastro-esophageal reflux disease without esophagitis; E87.6 Hypokalemia; D64.9 Anemia, unspecified; K86.3 Pseudocyst of pancreas; K86.0 Alcohol-induced chronic pancreatitis; K59.1 Functional diarrhea; F10.10 Alcohol abuse, uncomplicated
CPT/HCPCS: 71046

== ENCOUNTER 2024-06-07 10:41 | Outpatient (CLI) | payer MEDICARE, SELFPAY ==
[2024-06-07 11:05] LABS: Abs Immature Grans 0.08 10^3/uL (0.0-0.06); Absolute Basophil Count 0.12 10^3/uL (0.0-0.2); Absolute Eosinophil Count 0.18 10^3/uL (0.0-0.7); Absolute Lymphocyte Count 2.15 10^3/uL (1.2-3.4); Absolute Monocyte Count 0.87 10^3/uL (0.1-0.8); Absolute Neutrophil Count 7.29 10^3/uL (1.2-6.7); Basophils % 1.1 %; Eosinophils % 1.7 %; HCT 31.7 % (36.0-46.0); HGB 10.3 g/dL (11.2-15.7); Immature Grans % 0.7 %; Lymphocytes % 20.1 %; MCH 32.3 pg (27.0-33.0); MCHC 32.5 % (32.0-36.0); MCV 99 fL (80-95); MPV 9.8 fL (8.0-11.0); Monocytes % 8.1 %; Neutrophils % 68.3 %; Platelet Count 377 10^3/uL (130-400); RBC 3.19 10^6/uL (3.93-5.22); RDW 14.1 % (11.7-14.6); RDW-SD 51.8 fL; WBC 10.69 10^3/uL (4.4-10.8)
[2024-06-07 11:31] LABS: Anion Gap 8.6 mmol/L (3-11); BUN 5 mg/dL (7-18); CO2 27.4 mmol/L (21.0-32.0); CREATININE 0.6 mg/dL (0.55-1.02); Calcium 8.3 mg/dL (8.5-10.1); Chloride 111 mmol/L (98-107); Estimated GFR 114.15 (mL/min/1.73m2); Glucose 172 mg/dL (74-106); Sodium 147 mmol/L (136-145)
== END 2024-06-07 10:42 | disposition home or self-care (01) ==
LOC: LBO 10:42
PROVIDERS: PCP Nurse Practitioner Family; Visit Provider Surgery
DX: I82.890 Acute embolism and thrombosis of other specified veins; K21.9 Gastro-esophageal reflux disease without esophagitis; E87.6 Hypokalemia; D64.9 Anemia, unspecified; Z72.0 Tobacco use; K86.3 Pseudocyst of pancreas; K86.0 Alcohol-induced chronic pancreatitis; K59.1 Functional diarrhea; F11.20 Opioid dependence, uncomplicated; F10.10 Alcohol abuse, uncomplicated
CPT/HCPCS: 36415; 80048; 85025

== ENCOUNTER 2024-06-13 08:09 | Day surgery (SDC) | payer MEDICARE, SELFPAY ==
--- NOTE | 2024-06-12 16:29 | HPE_ITS ---
Date of service: 06/13/24 Assessment and Plan Assessment and plan (1) ADHD: Status: Acute (2) Opioid use disorder in remission: Status: Acute (3) Splenic vein thrombosis: Status: Acute (4) GERD (gastroesophageal reflux disease): Status: Suspected (5) Anemia: Status: Chronic Assessment and plan: Plan: EGD & Colonoscopy w/ general & natural airway. Informed consent is obtained for the procedural (explained in simple layman's terms that?the pt and/or family could understand) explaining risks vs benefits and alternatives to the procedure and consequences if we do not do the procedure and need/rational for the procedure. Risks include but are not limited to: bleeding, infection, perforation of colon.? This would necessitate emergency surgery to repair the damage w/ possible ostomy; and other associated complications w/ the required surgery. ? Also complications of anesthesia including aspiration, MD/CVA/, inability to complete the procedure. I discussed with the?patient would they could expect during the procedure, post procedure and recovery time and risks.? The patient understands that they need to have a ride home after the procedure.? This document was created with voice activated software and may contain errors. 20 mins spent in direct pt care and 15 in non face to face time (6) Diarrhea: (7) Bowel habit changes: (8) COPD (chronic obstructive pulmonary disease): History of Present Illness Narrative: Patient is here today for EGD & colonoscopy for bloody diarrhea/anemia.??? They completed a bowel prep with just a clear yellow residual effluent.? They not having any chest pain or shortness of breath, currently.? They are not experiencing any fever or chills.? They deny any productive cough or upper respiratory tract infection signs or symptoms.? They are not having abdominal pain, or nausea and vomiting.? They have not had any changes in medications, p ast medical history or past surgical history since previously being seen in the office. They have not had any accidents or have been in the ER since the clinic pre-operative evaluation. ??I reviewed the procedure with the patient today, including risks and benefits of the procedure, and what they could expect at home for recovery.? All questions are answered to the patient?s satisfaction today, and they are stable to proceed with the proposed procedure. pshx gallbladder/removal pseudocysts ganglion cyst from wrist anethesia- no problems HISTORY OF PRESENT ILLNESS The patient presents for evaluation of diarrhea. They have been experiencing diarrhea for several months, with bowel movements occurring up to six times a day. The diarrhea varies in consistency, sometimes watery, sometimes thick with mucus, and occasionally semi-formed. They have not had a fully formed stool in several months. Despite efforts to maintain their potassium levels, they continue to drop due to the diarrhea. They are currently taking potassium supplements and loperamide, which they find ineffective. They were previously on Lomotil and loperamide concurrently, which slowed down their diarrhea. They have never undergone a colonoscopy. They have a history of chronic pancreatitis and underwent gallbladder removal in 2012, during which two cysts were removed from their pancreas. They report no pain or difficulty swallowing and have been eating well since their discharge from a previous hospitalization where they received antibiotics. They experience heartburn and indigestion when consuming spicy food and avoid certain foods that exacerbate their symptoms. They have noticed occasional blood in their stools, which was attributed to hemorrhoids caused by the diarrhea. Their blood sugar levels have been slightly elevated, but they are not currently on any medication for this. They have been on buprenorphine for an extended period. They were diagnosed with pneumonia and a lung infection but were not prescribed antibiotics upon discharge. They were given an inhaler, which they have not used as they did not feel the need for it. I did strongly encourage her to use it every 4 hours while awake for the next 2 weeks They were diagnosed with a blood clot in their arm and were prescribed Eliquis. They express dissatisfaction with the number of medications they are currently taking. They had surgery on their wrist for a ganglion cyst in 2008 or 2009. Review of Systems All systems reviewed & are unremarkable except as noted in HPI and below PFSH All Active Problems Anemia (Chronic) Splenic vein thrombosis (Acute) ADHD (Acute) Opioid use disorder in remission (Acute) Continuous tobacco abuse (Acute) Chronic hypokalemia (Acute) Medical History Chronic pancreatitis Insomnia Hypocalcemia Bilateral edema of lower extremity Hypoalbuminemia Hypokalemia Normocytic normochromic anemia COPD (chronic obstructive pulmonary disease) Alcohol abuse Diarrhea Dysphagia Bowel habit changes Pancreatic pseudocyst Pancreatic mass Anasarca Ganglion cyst of dorsum of left wrist Colitis Opioid dependence on agonist therapy Surgical History S/P cholecystectomy and removal of two pancreatic pseudocysts Social History Smoking/Tobacco Use Status: Current every day Tobacco Type: cigarettes Smoking packs per day: 0.5 Smoking cigarettes per day: 10.0 Years smoked: 27 Smoking pack-years: 13.50 Quit status: considering quitting Counseling given: provider counseling and support medications Smoking risk assessment performed?: Yes Alcohol Intake: current Alcohol Intake frequency: a few times a month Alcohol type: beer Counseling provided: provider counseling Drug use: Daily Substance use type: marijuana Housing: apartment Do you feel safe at home: Yes Do you feel safe in your relationship?: Yes Meds Allergies and Home Medications Allergies Allergy/AdvReac Type Severity Reaction Status Date / Time brixodi AdvReac Severe Other (See Uncoded 06/12/24 12:25 Comment) Home Medications ?Medication ?Instructions ?Recorded ?Confirmed ?Type trazodone 50 mg tablet 50 mg PO HS 05/31/23 05/18/24 History albuterol sulfate 90 mcg/actuation 1 inh inhalation Q4H PRN 02/05/24 05/18/24 History aerosol inhaler spironolactone 50 mg tablet 100 mg PO BID 03/01/24 05/18/24 History diphenoxylate-atropine 2.5 1 tab PO BID PRN diarrhea #14 tabs 03/03/24 05/18/24 Rx mg-0.025 mg tablet (Lomotil) dextroamphetamine-amphetamine ER 30 mg PO DAILY 03/22/24 05/18/24 History 30 mg 24hr capsule,extend release pantoprazole 40 mg tablet,delayed 40 mg PO DAILY #30 tabs 03/24/24 05/18/24 Rx release (Protonix) potassium chloride 20 mEq 40 meq (2 x 20 mEq) PO AC & HS #80 03/24/24 05/18/24 Rx tablet,extended tabs release(part/cryst) (Klor-Con M) prochlorperazine maleate 5 mg 5 mg PO TID PRN #30 tabs 03/24/24 05/18/24 Rx tablet (Compazine) dextroamphetamine-amphetamine 20 20 mg PO DAILY 04/01/24 05/18/24 History mg tablet buprenorphine 8 mg-naloxone 2 mg 1 film buccal BID 04/17/24 05/18/24 History sublingual film (Suboxone) Exam Narrative Exam Narrative: PHYSICAL EXAM GENERAL APPEARANCE: Alert, healthy appearance, oriented, x 3,? in no acute distress HYDRATION: Well hydrated HEAD, EYES, EARS, NECK, THROAT: Head is normocephalic, pupils equal, round, reactive to light and accommodation, ocular movement intact, sclera clear and no jaundice. ?Dentition intact. LUNGS: normal respiration/normal chest excursion. ?Clear to auscultation bilaterally. ?No wheeze. ?HEART: Regular rate and rhythm. no murmurs ABDOMEN: soft and non-tender to palpation.? Normal bowel sounds.? ?
--- NOTE | 2024-06-12 16:32 | W.COLOREPORT ---
Date of service: 06/13/24 Colonoscopy Report Date of procedure: 06/13/24 Pre-op diagnosis general: diarrhea/rectal bleeding Surgeon: Amaya Olivas Anesthesia Type: General:No Airway Estimated blood loss (mL): 2 Pathology: other Complications: None Disposition: same day Prep: Miralax/Dulcolax Procedure Description: After informed consent was obtained, explaining risks of the procedure, including but not limits to: bleeding, infections, complications of anesthesia, perforations (which may require antibiotics and /or surgery and stay in the hospital), and abdominal pain/cramping. The patient was taken to the procedure room and placed in a left decubitous position. Monitors were applied and a time out was done. The patients name, date of , procedure, allergies to medications and metal in their body was reviewed. The patient was then sedated. Once sedated and comfortable a rectal exam was done. External exam was normal. Internal exam revealed a normal sphincter tone and no palpable masses. The prostate []. The previously lubricated Olympus scope was then introduced (see RN notes for scope number) and retrofelexed. [] internal hemorrhoids were identified. The scope was then advanced to the cecum without difficulty. The TI and appendiceal orifice were identified. The scope was then slowly retracted over [] minutes back into the rectum. Polyps: [] Diverticula: [] The mucosa is pink and healthy w/ a normal vascular pattern. The scope was removed, and the patient was woken up and taken back to Same day surgery in stable condition. The patient tolerated the procedure well and there were no immediate complications. Follow up: The patient should follow up in [] years, unless they develop changes in bowel habits or other new gastrointestinal complaints.
--- NOTE | 2024-06-12 16:33 | W.PM.ENDDOP ---
Date of service: 06/13/24 Endoscopy Report DATE OF PROCEDURE: 06/13/24 PRE-OP DIAGNOSIS: anemia/gerd
--- NOTE | 2024-06-12 16:35 | PDOC.DSDIS_ITS ---
Date of service: 06/13/24 Discharge Plan Disposition Patient Disposition: Home Condition: Good Discharge Details Reason For Visit: egd & colo Attending Provider: Amaya Olivas Primary Care Provider: Georgina Leyva Home Meds and New Rx's Prescriptions: No Action buprenorphine-naloxone [Suboxone] 8-2 mg film 1 film buccal BID trazodone 50 mg tablet 50 mg PO HS Patient Comments: take 1 tablet by mouth at bedtime spironolactone 50 mg tablet 100 mg PO BID diphenoxylate-atropine [Lomotil] 2.5-0.025 mg tablet 1 tab PO BID PRN (Reason: diarrhea) Qty: 14 0RF dextroamphetamine-amphetamine 30 mg capsule,extended release 24hr 30 mg PO DAILY Patient Comments: TAKE ONE CAPSULE BY MOUTH EVERY MORNING potassium chloride [Klor-Con M20] 20 mEq Tablet,Er Particles/Crystals 40 meq PO AC & HS Qty: 80 0RF Rx Instructions: Take with food pantoprazole [Protonix] 40 mg tablet,delayed release (DR/EC) 40 mg PO DAILY Qty: 30 0RF prochlorperazine maleate [Compazine] 5 mg tablet 5 mg PO TID PRNQty: 30 0RF dextroamphetamine-amphetamine 20 mg tablet 20 mg PO DAILY Patient Comments: TAKE ONE TABLET BY MOUTH EVERY DAY IN THE AFTERNOON albuterol sulfate 90 mcg/actuation HFA aerosol inhaler 1 inh INHALATION Q4H PRN Discharge Instructions Additional Instructions: [facility] Colonoscopy Post- Op Instructions Instructions for Everyone who is given Anesthesia: For your safety, please do the following for the next twenty-four (24) hours: *Do Not operate a motor vehicle (car, truck, motorcycle, etc.) *Do Not drink alcoholic beverages or use any recreational drugs for the first 24 hours or while taking pain medications. The medications in your body may have a reaction that can be dangerous. *Do Not make any important decisions or sign any important papers. Findings: Follow up: 1. No lifting over 20 pounds or strenuous activity for the first 24 hours after your procedure. After 24 hours there are no restrictions on your activity but you may feel fatigued for a few days. 2. After you arrive home you may have a light meal and return to your normal diet as you can tolerate it without feeling sick to your stomach. 3. You may have a bloated, gaseous feeling in your belly (abdomen) after a colonoscopy. Passing gas and belching will help. Walking or lying down on your left side with your knees flexed may relieve the discomfort. Call the office at [phone] (Office) or [phone] (Hospital) right away if you notice any of the following: a.Vomiting of blood or ?coffee ground stools?. b.Rectal bleeding 1Tbsp, blood clots or continuous bleeding. c.Severe belly (abdominal) pain. d.A hard distended belly (abdomen) and an inability to pass gas. 4. Please don?t expect to have a normal BM (bowel movement) for 2-3 days after your procedure. 5. If there are questions regarding the findings of your procedure, please contact your doctor 6. If you are unable to contact your doctor with a problem, contact the hospital at [phone]. 7. Continue all your regular medications unless directed otherwise. I understand the above instructions and have no questions. Signature of Patient or Adult Escort Name of Responsible Adult Escort Signature of Nurse Date/Time Activity:: see above Diet:: see above Discharge Orders Discharge Orders: Discharge Order (Routine); Ordered 06/13/24 Ordered By: Amaya Olivas DS: Diagnosis Discharge Diagnosis (1) ADHD: Status: Acute (2) Opioid use disorder in remission: Status: Acute (3) Splenic vein thrombosis: Status: Acute (4) GERD (gastroesophageal reflux disease): Status: Suspected (5) Anemia: Status: Chronic Asessment and Plan: The patient is seen and examined after their colonoscopy.? The patient has been able to pass gas.? They are not having abdominal pain.? They have been able to tolerate liquids and a snack.? They do not have any nausea or vomiting.? They are not having any chest pain or shortness of breath.??? They are not having any rectal bleeding. Their vital signs have been stable-see nursing notes. We discussed findings during their colonoscopy, and any biopsies that were done/polyps that were removed. The patient will be sent a letter with any biopsy results, and when to repeat the colonoscopy.-see discharge instructions. Patient was given explicit instructions to follow-up regarding colonoscopy-refer to discharge instructions.? We reviewed resumption of medications. Patient verbalized understanding and discharged in stable and satisfactory condition- See nursing notes. (6) Diarrhea: (7) Bowel habit changes: (8) COPD (chronic obstructive pulmonary disease):
[2024-06-13 08:32] VITALS: BP 140/94; PULSE 99; RESP 20; TEMP 36.7; O2SAT 100
[2024-06-13] MEDS: Normal Saline 500 ML 30 ML IV (08:44)
--- NOTE | 2024-06-13 10:09 | PDOC.ANES ---
Date of service: 06/13/24 Time of Service: 10:10 Anesthesia Note Report Anesthesia Note: Patient with potassium draw of 3.0 on 06/07/24. Patient does have a history of severe hypokalemia, however, has been stable since march. Patient reports she knows shes less than 3.0 today as she knows what that feels like. I did discuss with her that elective surgeries are not recommended when potassium levels are that low. The patient did consent to a lab draw, however, has been here for longer than she expected and does not want to stay beyond the lab draw. She reports I do not want to be admitted and I know you won't do the procedure because I am less than 3. She reports she wants to go home. Patient aware of need to safely perform her procedure today and that it might take some time to get labs and make sure her potassium is at an acceptable level. She wants to go home.
[2024-06-13 10:23] LABS: Potassium 3.2 mmol/L (3.5-5.1)
== END 2024-06-13 08:10 | disposition home or self-care (01) ==
LOC: SUR 08:09
PROVIDERS: Nurse Anesthetist, Certified Registered; PCP Nurse Practitioner Family; Visit Provider Surgery
DX: Z53.09 Procedure and treatment not carried out because of other contraindication (principal); E87.6 Hypokalemia
CPT/HCPCS: 84132

== ENCOUNTER 2024-07-12 12:30 | Outpatient (CLI) | payer MEDICARE, SELFPAY ==
[2024-07-12 11:53] LABS: ALT 70 U/L (14-59); AST 118 U/L (15-37); Albumin 2.8 g/dL (3.4-5.0); Alkaline Phosphatase 246 U/L (46-116); Anion Gap 8.7 mmol/L (3-11); BUN 5 mg/dL (7-18); Bilirubin, Total 0.79 mg/dL (0.2-1.0); CO2 28.3 mmol/L (21.0-32.0); CREATININE 0.7 mg/dL (0.55-1.02); Chloride 105 mmol/L (98-107); Estimated GFR 109.98 (mL/min/1.73m2); Glucose 198 mg/dL (74-106); Potassium 3.7 mmol/L (3.5-5.1); Sodium 142 mmol/L (136-145); Total Protein 6.6 g/dL (6.4-8.2)
== END 2024-07-12 12:31 | disposition home or self-care (01) ==
LOC: LBO 12:32
PROVIDERS: PCP Nurse Practitioner Family; Visit Provider Nurse Practitioner Family
DX: E87.6 Hypokalemia (principal)
CPT/HCPCS: 36415; 80053